=== PATIENT | female | born 1960 | race Caucasian/White ===

== ENCOUNTER 2020-03-22 12:40 | Outpatient (REF) | payer MEDICARE, MEDICAID, SELFPAY ==
[2020-03-27 00:37] LABS: Levetiracetam Keppra 27.8 mcg/mL (12.0-46.0)
== END 2020-03-22 12:41 | disposition home or self-care (01) ==
LOC: HO.LNPL 12:40
PROVIDERS: PCP Psychiatry & Neurology Neurology; Visit Provider Psychiatry & Neurology Neurology
DX: G40.909 Epilepsy, unspecified, not intractable, without status epilepticus (principal)
CPT/HCPCS: 80177

== ENCOUNTER → 2020-06-29 15:15 | Outpatient (BNVA) | payer MEDICARE, MEDICAID, SELFPAY | PROVIDERS: PCP Internal Medicine; Visit Provider Internal Medicine | DX: Q90.9 Down syndrome, unspecified (principal); G47.33 Obstructive sleep apnea (adult) (pediatric); R13.19 Other dysphagia; Z99.89 Dependence on other enabling machines and devices | CPT/HCPCS: 99212 ==

== ENCOUNTER → 2020-10-21 14:27 | Outpatient (BNVA) | payer MEDICARE, MEDICAID, SELFPAY | PROVIDERS: PCP Internal Medicine; Visit Provider Internal Medicine | DX: O90.9 Complication of the puerperium, unspecified (principal); G47.33 Obstructive sleep apnea (adult) (pediatric); R13.19 Other dysphagia; Z99.89 Dependence on other enabling machines and devices | CPT/HCPCS: 99212 ==

== ENCOUNTER 2020-11-17 15:05 | Outpatient (REF) | payer MEDICARE, MEDICAID, SELFPAY ==
[2020-11-17 16:42] LABS: MANUAL DIFF FLAG NO
[2020-11-17 16:50] LABS: Basophils Absolute Auto 0.1 X10*3/uL (0.0-0.2); Basophils Percent Auto 0.4 % (0-2); Eosinophils Percent Auto 0.3 % (0-4); Hemoglobin 13.8 g/dl (12.0-16.0); Imm Gran Abs Auto 0.07 X10*3/uL (0.00-0.03); Imm Gran Pct Auto 0.5 % (0.0-0.4); Lymphocytes Absolute Auto 1.4 X10*3/uL (1.2-4.9); Lymphocytes Percent Auto 10.3 % (20-40); Mean Corpuscular HGB Conc 32.1 g/dl (31.0-35.0); Mean Corpuscular Hemoglobin 33.5 pg (27.0-33.0); Mean Corpuscular Volume 104.4 fL (80-98); Mean Platelet Volume 10.5 fL (9.4-12.3); Monocytes Absolute Auto 0.9 X10*3/uL (0.1-1.2); Monocytes Percent Auto 6.5 % (2-11); Neutrophils Absolute Auto 11.2 X10*3/uL (2.0-8.3); Platelet Count 234 X10*3/uL (160-400); Red Blood Count 4.12 X10*6/uL (4.20-5.50); Red Cell Distribution Width 13.7 % (11.0-16.0); White Blood Count 13.7 X10*3/uL (4.8-10.8)
[2020-11-17 17:08] LABS: Alanine Aminotransferase 14 U/L (0-31); Alkaline Phosphatase 124 U/L (39-117); Anion Gap 13 (12-20); Aspartate Amino Transferase 18 U/L (5-31); Bilirubin Total 0.7 mg/dL (0.0-1.0); Blood Urea Nitrogen 14 mg/dL (9-16); Calcium 9.2 mg/dL (8.4-10.2); Carbon Dioxide 29 mmol/L (22-29); Chloride 108 mmol/L (96-108); Estimated Glomerular Filt Rate > 60; Glucose Random 79 mg/dL (60-115); Sodium 146 mmol/L (135-145); Total Protein 7.3 g/dL (6.5-8.0)
[2020-11-17 17:31] LABS: Free T4 (Free Thyroxine) 1.32 ng/dL (0.71-1.85); Thyroid Stimulating Hormone 2.42 uIU/mL (0.32-4.0); Vitamin D 25-OH Total 27.9 ng/mL (>30)
== END 2020-11-17 15:06 | disposition home or self-care (01) ==
LOC: HO.HMGCLDS 15:05
PROVIDERS: PCP Internal Medicine; Visit Provider Internal Medicine
DX: E03.9 Hypothyroidism, unspecified (principal); Q90.9 Down syndrome, unspecified; G40.909 Epilepsy, unspecified, not intractable, without status epilepticus
CPT/HCPCS: 36415; 80053; 82306; 84439; 84443; 85025

== ENCOUNTER → 2021-04-22 13:56 | Outpatient (BNVA) | payer MEDICARE, MEDICAID, SELFPAY | PROVIDERS: PCP Internal Medicine; Visit Provider Internal Medicine | DX: G47.33 Obstructive sleep apnea (adult) (pediatric) (principal); Q90.9 Down syndrome, unspecified; R13.19 Other dysphagia; Z99.89 Dependence on other enabling machines and devices | CPT/HCPCS: 99212 ==

== ENCOUNTER 2021-10-09 09:55 | Inpatient (IN) | payer MEDICARE, MEDICAID, SELFPAY ==
[2021-10-09] VITALS (11 sets, daily range): BP systolic 98–167; BP diastolic 44–82; PULSE 90–105; RESP 16–25; TEMP 37.1–38.1; O2SAT 88–98; BMI 30.7
--- NOTE | ~2021-10-09 | CT_ITS ---
EXAMINATION: CT HEAD WITHOUT CONTRAST CLINICAL INFORMATION: Altered mental status COMPARISON: 02/28/2019 TECHNIQUE: Contiguous axial imaging was performed from the skull base to vertex without intravenous administration of contrast. This CT examination was performed using dose optimization techniques as appropriate, variously including the following: *Automated exposure control *Adjustment of mA and/or kV according to patient size (this includes techniques or standardized protocols for targeted exams where dose is matched to indication/reason for exam; i.e. extremities or head) *Use of iterative reconstruction technique DLP: 866 mGy-cm FINDINGS: There is no evidence of acute intracranial hemorrhage or territorial infarction. No abnormal mass effect or midline shift is seen. [place] to white matter differentiation is well preserved. No extra-axial fluid collections are identified. Redemonstrated volume loss with associated ventricular dilation, which appears overall mildly increased since 02/28/2019.. There is mild periventricular white matter hypoattenuation consistent with chronic small vessel ischemic disease. The osseous structures and soft tissues are normal. Near-complete opacification of the left maxillary sinus. The mastoid air cells are well-aerated. CT/CT head/brain wo con IMPRESSION: No acute intracranial pathology. Volume loss and ventricular dilation, increased since 02/28/2019.
--- NOTE | ~2021-10-09 | XR_ITS ---
EXAMINATION: XR CHEST CLINICAL INFORMATION: Chest pain. COMPARISON: 08/14/2019 chest radiographs. TECHNIQUE: Frontal view of the chest was obtained. FINDINGS: Increased pulmonary vascular markings are seen. The heart and mediastinal structures are unremarkable. XR/XR chest 1V IMPRESSION: Interval increase in pulmonary vascular markings suggesting increased congestion.
--- NOTE | ~2021-10-09 | XR_ITS ---
EXAMINATION: XR CHEST CLINICAL INFORMATION: Shortness of breath COMPARISON: 10/09/2021 TECHNIQUE: Frontal view of the chest was obtained. FINDINGS: Lung volumes are symmetric. Redemonstrated prominence of the central vasculature and surrounding heterogeneous haziness extending to the lung bases, suggesting edema. No appreciable pneumothorax or significant pleural effusion. The cardiomediastinal silhouette is stable. No acute osseous findings are seen. XR/XR chest 1V IMPRESSION: Redemonstrated findings suggesting vascular congestion and mild edema, similar to 10/09/2021.
--- NOTE | 2021-10-09 11:34 | ED_ITS ---
HPI - URI/Sore Throat General Chief Complaint: Upper Respiratory Symptoms Stated Complaint: COUGH,FEVER Time Seen by Provider: 10/09/21 10:47 History of Present Illness HPI Narrative: Patient is a 61-year-old female with a history of Down syndromes history of seizures in the past history of aspiration in the past presents today with having an episode of coughing last night. Family noted patient to be slightly more lethargic than usual. Center in for further evaluation. Baseline patient is awake alert oriented times 0. Sister take care of her. Related Data Home Medications Medication Instructions Recorded Confirmed donepezil 5 mg disintegrating mg PO 10/21/20 tablet ipratropium bromide 21 mcg (0.03 INTRANASAL 10/21/20 %) nasal spray lamotrigine 25 mg chewable mg PO 10/21/20 dispersible tablet levothyroxine 88 mcg tablet mcg PO 10/21/20 Previous Rx's Medication Instructions Recorded levalbuterol HCl 1.25 mg/3 mL 1.25 mg (3 mL) INHALATION Q8H #270 09/27/21 solution for nebulization ml Allergies Allergy/AdvReac Type Severity Reaction Status Date / Time fentanyl [FENTANYL] Allergy Intermediate UNKNOWN Verified 04/22/21 14:08 codeine [CODEINE] Allergy Unknown UNKNOWN Verified 04/22/21 14:08 lorazepam [From ATIVAN] Allergy Unknown UNKNOWN Verified 04/22/21 14:08 oxcarbazepine [OXCARBAZEPINE] Allergy Unknown UNKNOWN Verified 04/22/21 14:08 penicillin V Allergy Unknown Unknown Verified 04/22/21 14:08 Penicillins [PENICILLINS] Allergy Unknown DIFFICULTY Verified 04/22/21 14:08 BREATHING Sulfa (Sulfonamide Allergy Unknown DIFFICULTY Verified 04/22/21 14:08 Antibiotics) BREATHING [SULFA (SULFONAMIDE ANTIBIOTICS)] levofloxacin [From LEVAQUIN] AdvReac Intermediate hallucinati Verified 04/22/21 14:08 ons phenodol Allergy Unknown Unknown Uncoded 10/21/20 14:48 Review of Systems Review of Systems: Positive coughing upper respiratory symptoms No vomiting The question low-grade fever noted last night by sister approximately 99.7 Yes all other systems are reviewed and are negative PMFSH Past Medical History Attestation statement: The following information was validated with the patient. Medical History Down syndrome Dysphagia causing pulmonary aspiration with swallowing LEONIE on CPAP Social History Social History Advance Directives: No Physical Exam Vital Signs: Vital Signs: Last Vital Signs Temp 100.5 F H 10/09/21 13:30 Pulse 92 10/09/21 13:14 Resp 24 H 10/09/21 13:54 BP 121/59 L 10/09/21 13:14 Pulse Ox 88 L 10/09/21 13:54 BMI result Body Mass Index 30.7 Appearance: Lethargic slumped over. Eyes: Pupils equal, round and reactive to light. ENT: Pharynx normal. Neck: Normal inspection. Neck supple. No lymph nodes noted. No crepitus CVS: Normal heart rate and rhythm. Pulses normal. Normal S1 and S2 Respiratory: No respiratory distress. Breath sounds normal. No Wheezing. No rales Abdomen: Soft and nontender. No rigidity. No distention. good BS x4 Skin: Skin warm and dry. Normal skin color. Normal skin turgor. Extremities: No lower extremity edema. Neurovascular intact to all extremities. No Lacerations. No Rash Neuro difficult to arouse No motor deficit. No sensory deficit. Moving all extermities. MDM - URI/Sore Throat MDM Narrative Medical decision making narrative: Patient is 61 years old history of Down syndrome. Positive coughing upper respiratory symptoms generalized malaise low-grade fever with a temperature 100 degrees 0.7. Patient's lactate is 1.2. White count is 17. History more co nsistent with having pneumonia. Antibiotics given. Patient is hypoxic will admit for further evaluation. Currently in guarded condition. Differential Diagnosis Differential diagnosis: Likely upper respiratory infection Medical Records Attestation: I reviewed the patient's medical records. Lab Data Attestation: I reviewed the patient's lab results. Result diagrams: 10/09/21 11:53 10/09/21 11:53 Labs: Lab Results 10/09/21 10/09/21 10/09/21 Range/Units 11:53 11:53 11:53 WBC 17.4 H (4.8-10.8) X10*3/uL RBC 4.13 L (4.20-5.50) X10*6/uL Hgb 13.7 (12.0-16.0) g/dl Hct 42.0 (37.0-47.0) % MCV 101.7 H (80.0-98.0) fL MCH 33.2 H (27.0-33.0) pg MCHC 32.6 (31.0-35.0) g/dl RDW 13.7 (11.0-16.0) % Plt Count 202 (160-400) X10*3/uL MPV 10.0 (9.4-12.3) fL Immature Gran % (Auto) 1.0 H (0.0-0.4) % Neut % (Auto) 88.0 H (45-73) % Lymph % (Auto) 5.2 L (20-40) % [place] % (Auto) 5.1 (2-11) % Eos % (Auto) 0.3 (0-4) % Baso % (Auto) 0.4 (0-2) % Lymph # (Auto) 0.9 L (1.2-4.9) X10*3/uL [place] # (Auto) 0.9 (0.1-1.2) X10*3/uL Eos # (Auto) 0.1 (0.0-0.4) X10*3/uL Baso # (Auto) 0.1 (0.0-0.2) X10*3/uL Abs Immat Gran (auto) 0.17 H (0.00-0.03) X10*3/uL Absolute Neuts (auto) 15.4 H (2.0-8.3) x10*3/uL Absolute Nucleated RBC 0.000 (0.0-0.012) X10*3/uL Nucleated RBC % (auto) 0.0 (0.0-0.2) /100WBC Sodium (135-145) mmol/L Potassium (3.3-5.1) mmol/L Chloride (96-108) mmol/L Carbon Dioxide (22-29) mmol/L Anion Gap (12-20) BUN (9-16) mg/dL Creatinine (0.5-1.4) mg/dL Estim Creat Clear Calc Estimated GFR Random Glucose (60-115) mg/dL Lactic Acid 1.2 (0.5-2.0) mmol/L Calcium (8.4-10.2) mg/dL Urine Color Urine Appearance Urine pH (5.0-8.0) Ur Specific [place] (1.005-1.025) Urine Protein (NEG-TRACE) MG/DL Urine Glucose (UA) (NEG) MG/DL Urine Ketones (NEG) MG/DL Urine Blood (NEG) Urine Nitrite (NEG) Ur Leukocyte Esterase (NEG) Influenza Type A (PCR) NEGATIVE (Negative) Influenza Type B (PCR) NEGATIVE (Negative) RSV RNA Qual (PCR) NEGATIVE (Negative) SARS-CoV-2 RNA (RT-PCR) NEGATIVE (Negative) 10/09/21 10/09/21 Range/Units 11:53 13:47 WBC (4.8-10.8) X10*3/uL RBC (4.20-5.50) X10*6/uL Hgb (12.0-16.0) g/dl Hct (37.0-47.0) % MCV (80.0-98.0) fL MCH (27.0-33.0) pg MCHC (31.0-35.0) g/dl RDW (11.0-16.0) % Plt Count (160-400) X10*3/uL MPV (9.4-12.3) fL Immature Gran % (Auto) (0.0-0.4) % Neut % (Auto) (45-73) % Lymph % (Auto) (20-40) % [place] % (Auto) (2-11) % Eos % (Auto) (0-4) % Baso % (Auto) (0-2) % Lymph # (Auto) (1.2-4.9) X10*3/uL [place] # (Auto) (0.1-1.2) X10*3/uL Eos # (Auto) (0.0-0.4) X10*3/uL Baso # (Auto) (0.0-0.2) X10*3/uL Abs Immat Gran (auto) (0.00-0.03) X10*3/uL Absolute Neuts (auto) (2.0-8.3) x10*3/uL Absolute Nucleated RBC (0.0-0.012) X10*3/uL Nucleated RBC % (auto) (0.0-0.2) /100WBC Sodium 141 (135-145) mmol/L Potassium 3.9 (3.3-5.1) mmol/L Chloride 107 (96-108) mmol/L Carbon Dioxide 24 (22-29) mmol/L Anion Gap 14 (12-20) BUN 10 (9-16) mg/dL Creatinine 0.73 (0.5-1.4) mg/dL Estim Creat Clear Calc 65.4 Estimated GFR > 60 Random Glucose 110 (60-115) mg/dL Lactic Acid (0.5-2.0) mmol/L Calcium 9.3 (8.4-10.2) mg/dL Urine Color YELLOW Urine Appearance HAZY Urine pH 6.5 (5.0-8.0) Ur Specific [place] 1.015 (1.005-1.025) Urine Protein TRACE (NEG-TRACE) MG/DL Urine Glucose (UA) NEG (NEG) MG/DL Urine Ketones NEG (NEG) MG/DL Urine Blood NEG (NEG) Urine Nitrite POS H (NEG) Ur Leukocyte Esterase NEG (NEG) Influenza Type A (PCR) (Negative) Influenza Type B (PCR) (Negative) RSV RNA Qual (PCR) (Negative) SARS-CoV-2 RNA (RT-PCR) (Negative) Discharge Plan Discharge Clinical Impression: Down syndrome, Pneumonia Patient Disposition: Admitted As Inpatient Prescriptions: No Action levalbuterol HCl 1.25 mg/3 mL solution for nebulization 1.25 mg inhalation Q8H Qty: 270 3RF levothyroxine 88 mcg tablet PO 0RF donepezil 5 mg tablet,disintegrating PO 0RF lamotrigine 25 mg tablet, chewable dispersible PO 0RF ipratropium bromide 21 mcg (0.03 %) spray,non-aerosol intranasal 0RF
[2021-10-09 11:59] LABS: MANUAL DIFF FLAG NO
[2021-10-09 12:03] LABS: Basophils Absolute Auto 0.1 X10*3/uL (0.0-0.2); Basophils Percent Auto 0.4 % (0-2); Eosinophils Absolute Auto 0.1 X10*3/uL (0.0-0.4); Eosinophils Percent Auto 0.3 % (0-4); Hemoglobin 13.7 g/dl (12.0-16.0); Imm Gran Abs Auto 0.17 X10*3/uL (0.00-0.03); Lymphocytes Absolute Auto 0.9 X10*3/uL (1.2-4.9); Lymphocytes Percent Auto 5.2 % (20-40); Mean Corpuscular HGB Conc 32.6 g/dl (31.0-35.0); Mean Corpuscular Hemoglobin 33.2 pg (27.0-33.0); Mean Corpuscular Volume 101.7 fL (80.0-98.0); Monocytes Absolute Auto 0.9 X10*3/uL (0.1-1.2); Monocytes Percent Auto 5.1 % (2-11); Neutrophils Absolute Auto 15.4 x10*3/uL (2.0-8.3); Platelet Count 202 X10*3/uL (160-400); Red Blood Count 4.13 X10*6/uL (4.20-5.50); Red Cell Distribution Width 13.7 % (11.0-16.0); White Blood Count 17.4 X10*3/uL (4.8-10.8)
[2021-10-09 12:13] LABS: Lactic Acid 1.2 mmol/L (0.5-2.0)
[2021-10-09 12:16] LABS: Anion Gap 14 (12-20); Blood Urea Nitrogen 10 mg/dL (9-16); Calcium 9.3 mg/dL (8.4-10.2); Carbon Dioxide 24 mmol/L (22-29); Chloride 107 mmol/L (96-108); Creatinine Clr Calc Pharmacy 65.4; Estimated Glomerular Filt Rate > 60; Glucose Random 110 mg/dL (60-115); Potassium 3.9 mmol/L (3.3-5.1); Sodium 141 mmol/L (135-145)
[2021-10-09 13:09] LABS: Influenza A PCR NEGATIVE (Negative); Influenza B PCR NEGATIVE (Negative); Resp Syncy Virus RNA Qual PCR NEGATIVE (Negative); SARS COV2 PCR INHOUSE NEGATIVE (Negative)
[2021-10-09 13:54] LABS: Appearance Urine HAZY; Color Urine YELLOW; Glucose Urine UA NEG (NEG); Leukocyte Esterase Urine NEG (NEG); Nitrite Urine POS (NEG); PH 6.5 (5.0-8.0); Specific Gravity - Urine 1.015 (1.005-1.025); UACC Culture Trigger YES; Urine Blood NEG (NEG); Urine Ketones NEG (NEG); Urine Protein TRACE MG/DL (NEG-TRACE)
[2021-10-09 14:03] LABS: Bacteria Urine 4+ /LPF; RBC Urine 0 /HPF (0); Squamous Epithelial Cell Urine TRACE /LPF; UACC CULT YES
[2021-10-09] MEDS: levoFLOXacin/D5W 500 MG/100 ML PIGGYBACK 100 MG IV (14:21)
[2021-10-09 14:28] LABS: B Type Natriuretic Peptide 69 pg/mL (<100)
--- NOTE | 2021-10-09 15:22 | PHA.MEDREC ---
Pharmacy Consult ? Medication Reconciliation Pharmacy has completed the medication reconciliation. Put in the meds per family request at exact times. Volume of keppra and vimpat are divided into three syringes due to volume. Per family, if the patient is sleeping, do not give 4 am keppra dose. Do not give lorazepam. Try and give meds with thick it.
[2021-10-09] MEDS: metroNIDAZOLE/NS 500 MG/100 ML PIGGYBACK 100 MG IV ×2 (15:59→21:24)
[2021-10-09] MEDS: 0.9 % Sodium Chloride Flush 3 ML SYRINGE IVFLUSH ×2 (16:00→21:21)
--- NOTE | 2021-10-09 16:38 | P.HPHOSP_ITS ---
History of Present Illness Date of Service: 10/09/21 Chief Complaint: Aspiration Pneumonia 61-year-old female with known history of Down's syndrome and chronic aspiration presents today to the emergency room after an episode of coughing which she likely aspirated. Family noticed a fever to 101 at home along with a very congested cough. In the emergency room, chest x-ray consistent with aspiration pneumonia. Review of Systems Review of Systems: Unable to obtain [facility] Medical History Down syndrome Dysphagia causing pulmonary aspiration with swallowing LEONIE on CPAP Social History Advance Directives: No Meds Allergies Allergy/AdvReac Type Severity Reaction Status Date / Time fentanyl [FENTANYL] Allergy Intermediate UNKNOWN Verified 04/22/21 14:08 codeine [CODEINE] Allergy Unknown UNKNOWN Verified 04/22/21 14:08 lorazepam [From ATIVAN] Allergy Unknown UNKNOWN Verified 04/22/21 14:08 oxcarbazepine [OXCARBAZEPINE] Allergy Unknown UNKNOWN Verified 04/22/21 14:08 penicillin V Allergy Unknown Unknown Verified 04/22/21 14:08 Penicillins [PENICILLINS] Allergy Unknown DIFFICULTY Verified 04/22/21 14:08 BREATHING Sulfa (Sulfonamide Allergy Unknown DIFFICULTY Verified 04/22/21 14:08 Antibiotics) BREATHING [SULFA (SULFONAMIDE ANTIBIOTICS)] levofloxacin [From LEVAQUIN] AdvReac Intermediate hallucinati Verified 04/22/21 14:08 ons phenodol Allergy Unknown Unknown Uncoded 10/21/20 14:48 Active Medications: Current Medications Acetaminophen (Acetaminophen 325 Mg Tablet) 650 mg PO BEDTIME [facility]ON Clonazepam (Clonazepam 0.5 Mg Tablet) 0.25 mg PO DAILY PRN PRN Reason: Seizures Enoxaparin Sodium (Enoxaparin Sodium 40 Mg/0.4 Ml Syringe) 40 mg SUBCUT Q24H [facility]LON Levofloxacin (Levaquin) 500 mg in 100 mls @ 100 mls/hr IV Q24H [facility] Metronidazole (Flagyl) 500 mg in 100 mls @ 100 mls/hr IV Q8H [facility]ON Last Admin: 10/09/21 15:59 Dose: 100 mls/hr Documented by: Ipratropium [place] (Ipratropium [place] 0.03 % 30 Ml [place]) 2 spray NOSTRIL-B TID PRN PRN Reason: Allergy Symptoms Lamotrigine (Lamotrigine 25 Mg Tablet) 25 mg PO BID@1100,2200 [facility] Levothyroxine Sodium (Levothyroxine Sodium 88 Mcg Tablet) 88 mcg PO DAILY@1030 [facility] Non-Formulary Medication (Donepezil) 5 mg PO DAILY@2200 [facility] Non-Formulary Medication (Lacosamide [Vimpat]) 95 mg PO BEDTIME [facility] Non-Formulary Medication (Levalbuterol Hcl) 1.25 mg INHALE Q8H PRN PRN Reason: Wheezing Non-Formulary Medication (Levetiracetam [Keppra]) 200 mg PO DAILY [facility] Non-Formulary Medication (Levetiracetam [Keppra]) 1,350 mg PO BEDTIME [facility] Non-Formulary Medication (Levetiracetam) 50 mg PO DAILY@0400 [facility] Omeprazole (Omeprazole 20 Mg/10 Ml Susp.Recon) 2.5 mg PO DAILY [facility] Pharmacy Consult (Consult Rx Perform Med Rec) 1 each MISCELLANE ONCE PRN PRN Reason: Consult order Sodium Chloride (0.9 % Sodium Chloride Flush 3 Ml Syringe) 3 ml IVFLUSH QSHIFT [facility] Last Admin: 10/09/21 16:00 Dose: 3 ml Documented by: Home Medications Medication Instructions Recorded Confirmed Last Taken Type donepezil 5 mg disintegrating 5 mg PO DAILY@2200 10/21/20 10/09/21 10/08/21 21:00 History tablet ipratropium bromide 21 mcg (0.03 2 spray INTRANASAL TID PRN 10/21/20 10/09/21 10/08/21 21:00 History %) nasal spray lamotrigine 25 mg chewable 25 mg PO BID@1100,2200 10/21/20 10/09/21 10/08/21 21:00 History dispersible tablet levothyroxine 88 mcg tablet 88 mcg PO DAILY@1030 10/21/20 10/09/21 10/08/21 12:00 History acetaminophen 325 mg tablet 650 mg PO BEDTIME 10/09/21 10/09/21 10/08/21 History clonazepam 0.25 mg disintegrating 0.25 mg PO DAILY PRN 10/09/21 10/09/21 Unknown History tablet lacosamide 10 mg/mL oral solution 95 mg PO BEDTIME 10/09/21 10/09/21 10/08/21 History (Vimpat) levalbuterol HCl 1.25 mg/3 mL 1.25 mg INHALATION Q8H PRN 10/09/21 10/09/21 10/08/21 21:00 History solution for nebulization levetiracetam 100 mg/mL oral 50 mg PO DAILY@0400 10/09/21 10/09/21 10/08/21 History solution levetiracetam 100 mg/mL oral 1,350 mg PO BEDTIME 10/09/21 10/09/21 10/08/21 21:00 History solution (Keppra) levetiracetam 100 mg/mL oral 200 mg DAILY 10/09/21 10/09/21 10/09/21 09:00 History solution (Keppra) nystatin 100,000 unit/gram topical 1 appl TOPICAL TID PRN 10/09/21 10/09/21 Unknown History cream omeprazole magnesium 2.5 mg oral 2.5 mg PO DAILY 10/09/21 10/09/21 10/08/21 History suspension,delayed release Physical Exam Vital Signs and Narrative: Vital Signs: Last Vital Signs Temp 100.5 F H 10/09/21 13:30 Pulse 97 10/09/21 14:29 Resp 25 H 10/09/21 14:29 BP 125/59 L 10/09/21 14:31 Pulse Ox 97 10/09/21 14:44 Oxygen Flow Rate 2 10/09/21 14:44 BMI result Body Mass Index 30.7 Const: Other: Nonverbal Resp: Other: Diminished breath sounds throughout with coarse rhonchi Cardio: Other: No S4; positive S1-S2; no S3 murmurs rubs or gallops GI: Other: Soft nontender nondistended with normoactive bowel sounds Extrem: Other: No edema bilaterally Results Labs CBC and Chem 7: 10/09/21 11:53 10/09/21 11:53 Labs: Laboratory Results - last 24 hr 10/09/21 10/09/21 10/09/21 11:53 11:53 11:53 MCV 101.7 H MCH 33.2 H MCHC 32.6 RDW 13.7 Plt Count 202 MPV 10.0 Immature Gran % (Auto) 1.0 H Neut % (Auto) 88.0 H Lymph % (Auto) 5.2 L [place] % (Auto) 5.1 Eos % (Auto) 0.3 Baso % (Auto) 0.4 Lymph # (Auto) 0.9 L [place] # (Auto) 0.9 Eos # (Auto) 0.1 Baso # (Auto) 0.1 Abs Immat Gran (auto) 0.17 H Absolute Neuts (auto) 15.4 H Absolute Nucleated RBC 0.000 Nucleated RBC % (auto) 0.0 Anion Gap Estim Creat Clear Calc Estimated GFR Random Glucose Lactic Acid 1.2 Calcium B-Natriuretic Peptide Urine Color Urine Appearance Urine pH Ur Specific [place] Urine Protein Urine Glucose (UA) Urine Ketones Urine Blood Urine Nitrite Ur Leukocyte Esterase Urine RBC Urine WBC Ur Squamous Epith Cells Urine Bacteria Influenza Type A (PCR) NEGATIVE Influenza Type B (PCR) NEGATIVE RSV RNA Qual (PCR) NEGATIVE SARS-CoV-2 RNA (RT-PCR) NEGATIVE 10/09/21 10/09/21 10/09/21 11:53 11:53 13:47 MCV MCH MCHC RDW Plt Count MPV Immature Gran % (Auto) Neut % (Auto) Lymph % (Auto) [place] % (Auto) Eos % (Auto) Baso % (Auto) Lymph # (Auto) [place] # (Auto) Eos # (Auto) Baso # (Auto) Abs Immat Gran (auto) Absolute Neuts (auto) Absolute Nucleated RBC Nucleated RBC % (auto) Anion Gap 14 Estim Creat Clear Calc 65.4 Estimated GFR > 60 Random Glucose 110 Lactic Acid Calcium 9.3 B-Natriuretic Peptide 69 Urine Color YELLOW Urine Appearance HAZY Urine pH 6.5 Ur Specific [place] 1.015 Urine Protein TRACE Urine Glucose (UA) NEG Urine Ketones NEG Urine Blood NEG Urine Nitrite POS H Ur Leukocyte Esterase NEG Urine RBC 0 Urine WBC 15-29 H Ur Squamous Epith Cells TRACE Urine Bacteria 4+ Influenza Type A (PCR) Influenza Type B (PCR) RSV RNA Qual (PCR) SARS-CoV-2 RNA (RT-PCR) Imaging Radiologist's Impressions: Impressions Chest X-Ray 10/09/21 12:34 IMPRESSION: Interval increase in pulmonary vascular markings suggesting increased congestion. Assessment and Plan (1) Aspiration pneumonia: Status: Acute (2) Down syndrome: Status: Acute (3) LEONIE on CPAP: Status: Acute Plan 61-year-old female presents with aspiration pneumonia in the backdrop of chronic aspiration in the setting of Down syndrome. Fevers to 101 at home; in the ER given Levaquin and Flagyl and nebs. 1.Aspiration pneumonia -Levaquin/Flagyl -DuoNebs q.4 hours while awake. . . Aggressive suctioning as tolerated -titrate O2 to maintain sats greater than equal to 92% 2. Seizure disorder -continue outpatient therapies. . . Patient to sister to bring in meds that are non formulary 3.Downs syndrome -continue clonazepam and Aricept -add benzos if clinically indicated 4. Hypothyroidism -continue outpatient supplements 5. GERD -omeprazole suspension Full code Lovenox Will require 1-2 midnights going forward for treatment of aspiration pneumonia with IV antibiotics and supplemental O2. This cannot be achieved at a lesser acute setting Quality Stroke Does the patient have a stroke diagnosis?: No VTE Prior VTE?: No VTE Risk Level:: Medical - moderate - high VTE Device Contraindication: Treatment Not Indicated VTE Drug Contraindication: N/A - Med Ordered
[2021-10-09] MEDS: Enoxaparin Sodium 40 MG/0.4 ML SYRINGE SUBCUT (18:31)
[2021-10-09] MEDS: Acetaminophen 325 MG TABLET 650 MG PO (21:24)
[2021-10-09] MEDS: Donepezil HCl 5 MG TABLET PO (21:37)
[2021-10-09] MEDS: levETIRAcetam Oral Soln 500 MG/5 ML 1350 MG PO (21:38)
[2021-10-09] MEDS: lamoTRIgine 25 MG TABLET PO (21:43)
[2021-10-10] VITALS (8 sets, daily range): BP systolic 94–137; BP diastolic 49–74; PULSE 61–84; RESP 16–20; TEMP 36.2–38.2; O2SAT 92–100
--- NOTE | 2021-10-10 03:50 | PC.NURSE ---
Patient with decreased blood pressure and minmally responsive. contacted MD and music supervisor, customer service leader at bedside.
[2021-10-10] MEDS: SODIUM CHLORIDE 2001 ML IV (04:41)
[2021-10-10 04:55] LABS: MANUAL DIFF FLAG NO
[2021-10-10 04:56] LABS: Basophils Absolute Auto 0.1 X10*3/uL (0.0-0.2); Basophils Percent Auto 0.3 % (0-2); Eosinophils Absolute Auto 0.1 X10*3/uL (0.0-0.4); Eosinophils Percent Auto 0.5 % (0-4); Hematocrit 36.5 % (37.0-47.0); Imm Gran Abs Auto 0.15 X10*3/uL (0.00-0.03); Lymphocytes Absolute Auto 1.4 X10*3/uL (1.2-4.9); Lymphocytes Percent Auto 8.6 % (20-40); Mean Corpuscular HGB Conc 32.9 g/dl (31.0-35.0); Mean Corpuscular Hemoglobin 33.2 pg (27.0-33.0); Mean Corpuscular Volume 101.1 fL (80.0-98.0); Mean Platelet Volume 9.9 fL (9.4-12.3); Monocytes Absolute Auto 0.9 X10*3/uL (0.1-1.2); Monocytes Percent Auto 5.6 % (2-11); Neutrophils Absolute Auto 13.3 x10*3/uL (2.0-8.3); Platelet Count 180 X10*3/uL (160-400); Red Blood Count 3.61 X10*6/uL (4.20-5.50); Red Cell Distribution Width 13.5 % (11.0-16.0); White Blood Count 15.8 X10*3/uL (4.8-10.8)
[2021-10-10 04:57] LABS: VBG Base Excess 1.2 mmol/L; VBG HCO3 24 mmol/L (22-26); VBG pCO2 35 mmHg; VBG pH 7.44 (7.32-7.43); VBG pO2 60 mmHg
[2021-10-10 04:57] LABS: Venous Blood Gas Refer to POC result
--- NOTE | 2021-10-10 05:02 | PC.RT ---
Oral suctioned moderate thick secretions, att ABG-flashed but stopped? clot. Pt not waking up but would after 30 mins
[2021-10-10 05:09] LABS: Lactic Acid 0.8 mmol/L (0.5-2.0)
[2021-10-10 05:15] LABS: Alanine Aminotransferase 13 U/L (0-31); Albumin Level 3.3 g/dL (3.5-5.0); Alkaline Phosphatase 121 U/L (39-117); Anion Gap 14 (12-20); Aspartate Amino Transferase 15 U/L (5-31); Bilirubin Total 0.8 mg/dL (0.0-1.0); Blood Urea Nitrogen 11 mg/dL (9-16); Calcium 8.8 mg/dL (8.4-10.2); Carbon Dioxide 21 mmol/L (22-29); Chloride 107 mmol/L (96-108); Creatinine Clr Calc Pharmacy 56.9; Estimated Glomerular Filt Rate > 60; Glucose Fasting 107 mg/dL (60-99); Potassium 3.6 mmol/L (3.3-5.1); Sodium 138 mmol/L (135-145); Total Protein 6.3 g/dL (6.5-8.0)
[2021-10-10] MEDS: Acetaminophen Supp 650 MG SUPP.RECT PR (06:01)
[2021-10-10] MEDS: metroNIDAZOLE/NS 500 MG/100 ML PIGGYBACK 100 MG IV ×3 (07:32→22:04)
[2021-10-10] MEDS: levETIRAcetam Oral Soln 500 MG/5 ML 200 MG PO (09:52)
[2021-10-10] MEDS: lamoTRIgine 25 MG TABLET PO ×2 (10:01→21:53)
--- NOTE | 2021-10-10 13:16 | MHC.CM.PN ---
IMM 10/10/21 REVIEWED AT BEDSIDE W/PT'S SISTER D/T DEMENTIA/DOWN SYNDROME, PT'S SISTER TOSHIA ANSWERED ALL QUESTIONS PT WAS SOUNDLY SLEEPING, PT LIVES W/SISTER AND SISTER , PT IS MAINLY IN W/C AND SISTER USES A CLARY ATTACHED TO [place] TO TRANSFER PT SHE AND HER ARE NOT STRONG ENOUGH, TOSHIA REPORTS PT HAS GRAB BARS IN BR, MULT WALKERS, W/C, W/C RAMP, CEILING AND STAND ALONE CLARY LIFTS, A LIFT THAT STANDS PT, ETC. TOSHIA IS PAID 40HRS [facility] TO CARE FOR PT AND IS REQUESTING EXTRA HELP BUT IS AWARE THAT WOULD COME OUT OF POCKET, TOSHIA IS REQUESTING [facility] AND REPORTS SHE HAS HAD [facility] IN THE PAST AND REFERRAL TO BE PLACED. PCP: OG MESA HCP: TOSHIA ECHAVARRIA [phone], COPY PROVIDED BY FAMILY, UPLOADED TO [employer] AND PLACED IN CHART. D/C PLAN: HOME W/24 HR CARE AND NEW [facility], PT WILL NEED BLS TRANSPORT.
--- NOTE | 2021-10-10 13:21 | P.PNIM_ITS ---
Subjective Subjective Date of Service: 10/10/21 Review of Systems Unable to obtain Physical Exam Vital Signs: Vital Signs: Last Vital Signs Temp 97.8 F 10/10/21 10:38 Pulse 69 10/10/21 10:38 Resp 20 10/10/21 10:38 BP 103/49 L 10/10/21 10:38 Pulse Ox 98 10/10/21 10:38 Oxygen Flow Rate 2 10/09/21 14:44 BMI result Body Mass Index 30.7 Const: Other: Nonverbal Resp: Other: Diminished breath sounds throughout with coarse rhonchi Cardio: Other: No S4; positive S1-S2; no S3 murmurs rubs or gallops GI: Other: Soft nontender nondistended with normoactive bowel sounds Extrem: Other: No edema bilaterally Objective Data Active Medications Acetaminophen (Acetaminophen 325 Mg Tablet) 650 mg PO BEDTIME [facility] Last Admin: 10/09/21 21:24 Dose: 650 mg Documented by: OBI Acetaminophen (Acetaminophen Supp 650 Mg Supp.Rect) 650 mg [place] Q6H PRN PRN Reason: Pain, Mild (Pain Scale 1-3) Last Admin: 10/10/21 06:01 Dose: 650 mg Documented by: PATEL Clonazepam (Clonazepam 0.5 Mg Tablet) 0.25 mg PO DAILY PRN PRN Reason: Seizures Donepezil HCl (Donepezil Hcl 5 Mg Tablet) 5 mg PO DAILY@2200 [facility] Last Admin: 10/09/21 21:37 Dose: 5 mg Documented by: OBI Enoxaparin Sodium (Enoxaparin Sodium 40 Mg/0.4 Ml Syringe) 40 mg SUBCUT Q24H [facility] Last Admin: 10/09/21 18:31 Dose: 40 mg Documented by: JADA Levofloxacin (Levaquin) 500 mg in 100 mls @ 100 mls/hr IV Q24H [facility] Metronidazole (Flagyl) 500 mg in 100 mls @ 100 mls/hr IV Q8H [facility] Last Infusion: 10/10/21 08:55 Dose: 0 mls/hr Documented by: JADA Ipratropium [place] (Ipratropium [place] Praveen 0.03 % 30 Ml [place]) 2 spray NOSTRIL-B TID PRN PRN Reason: Allergy Symptoms Lamotrigine (Lamotrigine 25 Mg Tablet) 25 mg PO BID@1100,2200 [facility] Last Admin: 10/10/21 10:01 Dose: 25 mg Documented by: JADA Levalbuterol HCl (Levalbuterol Hcl 1.25 Mg/0.5 Ml Vial.Neb) 1.25 mg INHALE Q8H PRN PRN Reason: Wheezing Levetiracetam (Levetiracetam Oral Soln 500 Mg/5 Ml) 200 mg PO DAILY [facility] Last Admin: 10/10/21 09:52 Dose: 200 mg Documented by: JADA Levetiracetam (Levetiracetam Oral Soln 500 Mg/5 Ml) 1,350 mg PO BEDTIME [facility] Last Admin: 10/09/21 21:38 Dose: 1,350 mg Documented by: OBI Levetiracetam (Levetiracetam Oral Soln 500 Mg/5 Ml) 50 mg PO DAILY@0400 [facility] Last Admin: 10/10/21 04:41 Dose: Not Given Documented by: PATEL Non-Admin Reason: NPO Levothyroxine Sodium (Levothyroxine Sodium 88 Mcg Tablet) 88 mcg PO DAILY@1030 [facility] Last Admin: 10/10/21 10:45 Dose: Not Given Documented by: JADA Non-Admin Reason: NPO Non-Formulary Medication (Lacosamide [Vimpat]) 95 mg PO BEDTIME [facility] Last Admin: 10/09/21 21:37 Dose: 95 mg Documented by: OBI Omeprazole (Omeprazole 20 Mg/10 Ml Susp.Recon) 2.5 mg PO DAILY [facility] Last Admin: 10/10/21 10:45 Dose: Not Given Documented by: JADA Non-Admin Reason: NPO Pharmacy Consult (Consult Rx Perform Med Rec) 1 each MISCELLANE ONCE PRN PRN Reason: Consult order Sodium Chloride (0.9 % Sodium Chloride Flush 3 Ml Syringe) 3 ml IVFLUSH QSHIFT [facility] Last Admin: 10/10/21 08:31 Dose: Not Given Documented by: JADA Non-Admin Reason: IV Running Labs CBC & Chem 7: 10/10/21 04:48 10/10/21 04:48 Labs: Laboratory Results - last 24 hr 10/09/21 10/09/21 10/09/21 11:53 11:53 11:53 WBC 17.4 H MCV MCH MCHC RDW Plt Count MPV Immature Gran % (Auto) Neut % (Auto) Lymph % (Auto) [place] % (Auto) Eos % (Auto) Baso % (Auto) Lymph # (Auto) [place] # (Auto) Eos # (Auto) Baso # (Auto) Abs Immat Gran (auto) Absolute Neuts (auto) Absolute Nucleated RBC Nucleated RBC % (auto) VBG pH VBG pCO2 VBG pO2 VBG HCO3 VBG O2 Saturation VBG Base Excess Anion Gap Estim Creat Clear Calc Estimated GFR Fasting Glucose Lactic Acid Calcium Total Bilirubin AST ALT Alkaline Phosphatase B-Natriuretic Peptide 69 Total Protein Albumin Urine Color Urine Appearance Urine pH Ur Specific [place] Urine Protein Urine Glucose (UA) Urine Ketones Urine Blood Urine Nitrite Ur Leukocyte Esterase Urine RBC Urine WBC Ur Squamous Epith Cells Urine Bacteria Influenza Type A (PCR) NEGATIVE Influenza Type B (PCR) NEGATIVE RSV RNA Qual (PCR) NEGATIVE SARS-CoV-2 RNA (RT-PCR) NEGATIVE 10/09/21 10/10/21 10/10/21 13:47 04:48 04:48 WBC 15.8 H MCV 101.1 H MCH 33.2 H MCHC 32.9 RDW 13.5 Plt Count 180 MPV 9.9 Immature Gran % (Auto) 1.0 H Neut % (Auto) 84.0 H Lymph % (Auto) 8.6 L [place] % (Auto) 5.6 Eos % (Auto) 0.5 Baso % (Auto) 0.3 Lymph # (Auto) 1.4 [place] # (Auto) 0.9 Eos # (Auto) 0.1 Baso # (Auto) 0.1 Abs Immat Gran (auto) 0.15 H Absolute Neuts (auto) 13.3 H Absolute Nucleated RBC 0.000 Nucleated RBC % (auto) 0.0 VBG pH VBG pCO2 VBG pO2 VBG HCO3 VBG O2 Saturation VBG Base Excess Anion Gap 14 Estim Creat Clear Calc 56.9 Estimated GFR > 60 Fasting Glucose 107 H Lactic Acid Calcium 8.8 Total Bilirubin 0.8 AST 15 ALT 13 Alkaline Phosphatase 121 H B-Natriuretic Peptide Total Protein 6.3 L Albumin 3.3 L Urine Color YELLOW Urine Appearance HAZY Urine pH 6.5 Ur Specific [place] 1.015 Urine Protein TRACE Urine Glucose (UA) NEG Urine Ketones NEG Urine Blood NEG Urine Nitrite POS H Ur Leukocyte Esterase NEG Urine RBC 0 Urine WBC 15-29 H Ur Squamous Epith Cells TRACE Urine Bacteria 4+ Influenza Type A (PCR) Influenza Type B (PCR) RSV RNA Qual (PCR) SARS-CoV-2 RNA (RT-PCR) 10/10/21 10/10/21 04:48 04:50 WBC MCV MCH MCHC RDW Plt Count MPV Immature Gran % (Auto) Neut % (Auto) Lymph % (Auto) [place] % (Auto) Eos % (Auto) Baso % (Auto) Lymph # (Auto) [place] # (Auto) Eos # (Auto) Baso # (Auto) Abs Immat Gran (auto) Absolute Neuts (auto) Absolute Nucleated RBC Nucleated RBC % (auto) VBG pH 7.44 H VBG pCO2 35 VBG pO2 60 VBG HCO3 24 VBG O2 Saturation 89.0 VBG Base Excess 1.2 Anion Gap Estim Creat Clear Calc Estimated GFR Fasting Glucose Lactic Acid 0.8 Calcium Total Bilirubin AST ALT Alkaline Phosphatase B-Natriuretic Peptide Total Protein Albumin Urine Color Urine Appearance Urine pH Ur Specific [place] Urine Protein Urine Glucose (UA) Urine Ketones Urine Blood Urine Nitrite Ur Leukocyte Esterase Urine RBC Urine WBC Ur Squamous Epith Cells Urine Bacteria Influenza Type A (PCR) Influenza Type B (PCR) RSV RNA Qual (PCR) SARS-CoV-2 RNA (RT-PCR) Microbiology Microbiology Results: Microbiology 10/09/21 13:54 Urine Culture - Preliminary Urine clean catch - Urine lind top Gram negative chadd Assessment and Plan (1) Aspiration pneumonia: Status: Acute (2) Down syndrome: Status: Acute (3) LEONIE on CPAP: Status: Acute Plan 61-year-old female presents with aspiration pneumonia in the backdrop of chronic aspiration in the setting of Down syndrome. Fevers to 101 at home; in the ER given Levaquin and Flagyl and nebs. 1.Aspiration pneumonia -Levaquin/Flagyl(2) -DuoNebs q.4 hours while awake. . . Aggressive suctioning as tolerated -titrate O2 to maintain sats greater than equal to 92% -speech consult in am... Sister insists on pureed diet with thickened liquids despite risks 2. Seizures -continue outpatient therapies. . . -patient to sister to bring in meds that are non formulary 3.Downs syndrome -continue clonazepam and Aricept -add benzos if clinically indicated 4. Hypothyroidism -continue outpatient supplements 5. GERD -omeprazole suspension Full code Lovenox Will require treatment of aspiration pneumonia with IV antibiotics and supplemental O2. Quality Stroke Does the patient have a stroke diagnosis?: No VTE Prior VTE?: No VTE Risk Level:: Medical - moderate - high VTE Device Contraindication: Treatment Not Indicated VTE Drug Contraindication: N/A - Med Ordered
[2021-10-10] MEDS: levoFLOXacin/D5W 500 MG/100 ML PIGGYBACK 100 MG IV (14:00)
[2021-10-10] MEDS: Enoxaparin Sodium 40 MG/0.4 ML SYRINGE SUBCUT (18:38)
[2021-10-10] MEDS: Acetaminophen 325 MG TABLET 650 MG PO (21:46)
[2021-10-10] MEDS: Donepezil HCl 5 MG TABLET PO (21:46)
[2021-10-10] MEDS: levETIRAcetam Oral Soln 500 MG/5 ML 1350 MG PO (21:49)
[2021-10-10] MEDS: Albuterol/Iprat 2.5/0.5MG 3 ML AMPUL.NEB INHALE (21:52)
[2021-10-10] MEDS: 0.9 % Sodium Chloride Flush 3 ML SYRINGE IVFLUSH (22:04)
[2021-10-11 03:29] VITALS: BP 117/56; PULSE 67; RESP 17; TEMP 36.4; O2SAT 94
[2021-10-11] MEDS: levETIRAcetam Oral Soln 500 MG/5 ML 50 MG PO (03:39)
[2021-10-11 06:02] LABS: MANUAL DIFF FLAG NO
[2021-10-11 06:11] LABS: Basophils Absolute Auto 0.1 X10*3/uL (0.0-0.2); Basophils Percent Auto 0.6 % (0-2); Eosinophils Absolute Auto 0.1 X10*3/uL (0.0-0.4); Eosinophils Percent Auto 0.8 % (0-4); Hematocrit 34.9 % (37.0-47.0); Hemoglobin 11.3 g/dl (12.0-16.0); Imm Gran Abs Auto 0.13 X10*3/uL (0.00-0.03); Imm Gran Pct Auto 1.3 % (0.0-0.4); Lymphocytes Absolute Auto 1.3 X10*3/uL (1.2-4.9); Lymphocytes Percent Auto 13.4 % (20-40); Mean Corpuscular HGB Conc 32.4 g/dl (31.0-35.0); Mean Corpuscular Hemoglobin 32.8 pg (27.0-33.0); Mean Corpuscular Volume 101.5 fL (80.0-98.0); Mean Platelet Volume 10.5 fL (9.4-12.3); Monocytes Absolute Auto 0.6 X10*3/uL (0.1-1.2); Monocytes Percent Auto 6.4 % (2-11); Neutrophils Absolute Auto 7.6 x10*3/uL (2.0-8.3); Neutrophils Percent Auto 77.5 % (45-73); Platelet Count 177 X10*3/uL (160-400); Red Blood Count 3.44 X10*6/uL (4.20-5.50); Red Cell Distribution Width 13.4 % (11.0-16.0); White Blood Count 9.8 X10*3/uL (4.8-10.8)
[2021-10-11 06:23] LABS: Alanine Aminotransferase 12 U/L (0-31); Alkaline Phosphatase 103 U/L (39-117); Anion Gap 12 (12-20); Aspartate Amino Transferase 12 U/L (5-31); Bilirubin Total 0.3 mg/dL (0.0-1.0); Blood Urea Nitrogen 11 mg/dL (9-16); Calcium 8.6 mg/dL (8.4-10.2); Carbon Dioxide 23 mmol/L (22-29); Chloride 113 mmol/L (96-108); Creatinine Clr Calc Pharmacy 71.2; Estimated Glomerular Filt Rate > 60; Glucose Fasting 109 mg/dL (60-99); Potassium 3.5 mmol/L (3.3-5.1); Sodium 144 mmol/L (135-145); Total Protein 5.8 g/dL (6.5-8.0)
[2021-10-11] MEDS: metroNIDAZOLE/NS 500 MG/100 ML PIGGYBACK 100 MG IV ×2 (06:28→17:48)
[2021-10-11 07:53] VITALS: BP 133/62; PULSE 74; RESP 17; TEMP 36.9; O2SAT 94
[2021-10-11] MEDS: levETIRAcetam Oral Soln 500 MG/5 ML 200 MG PO (07:55)
[2021-10-11] MEDS: 0.9 % Sodium Chloride Flush 3 ML SYRINGE IVFLUSH ×2 (07:55→17:49)
[2021-10-11] MEDS: lamoTRIgine 25 MG TABLET PO ×2 (08:00→22:51)
[2021-10-11] MEDS: Levothyroxine Sodium 88 MCG TABLET PO (11:19)
[2021-10-11 11:20] VITALS: BP 138/63; PULSE 70; RESP 18; TEMP 37.2; O2SAT 93
--- NOTE | 2021-10-11 11:30 | MHC.CM.PN ---
[facility] REVIEWED, PER HOSPITALIST PT NOT READY FOR D/C, [facility] FOLLOWING FOR DETENTION PER PT REQUEST, PT WILL NEED BLS TRANSPORT HOME WHEN CLEARED FOR D/C.
--- NOTE | 2021-10-11 12:33 | MHC.SL.SWA ---
Speech Pathologist Impression: Oropharyngeal dysphagia Dysphasia Diet Status: Continue baseline. Recommend continue speech therapy after discharge through [facility]. Liquid Consistency and Strategies for Safe Swallow: Liquid Intake Recommendation: Honey Thick Liquid Intake Strategies: Small Sips Via syringe Solid Food Consistency: Dietary Recommendations: Pureed (NDD1) Additional Modifications to Solid Foods: Patient has history of aspiration and is on a modified diet. Per sister, patient is on mostly pureed food at home, thickened liquids given by syringe, her pills are crushed or in liquid form. Patient must be awake and alert for PO intake. May need to hold tray depending on mental status, lethargy. Recommend continue baseline PUREED solids (NDD1), HONEY THICK liquids, and pills CRUSHED in PUREE or liquid form when available. Patient requires TOTAL assistance feeding. 1/2 teaspoon bites of pureed food at a time. Patient swallows 2-3 times per bite. Ensure oral cavity is cleared before giving more bites. Liquids administered by syringe. Provide cues as needed for upright position throughout meals. Aspiration precautions apply. SKEIN DRIER updated diet order in [facility]. Updated care team via [place]. SKEIN DRIER will f/u tomorrow. Oral Medication Intake: Crushed with Puree Please contact the pharmacy regarding appropriate crushable or liquid drug formulations that are available whenever modified delivery is recommended. Compensatory Strategies and Precautions to be Taken for Safe Swallow: Sitting Upright (90 deg) Double Swallow No Straw Small Bites and Sips Rate of Ingestion Change Oral Check Supervision While Eating and Drinking for Safe Swallow: Total Assistance (1:1) Swallowing Recommended Treatments: Compens. Strategy Educat. Recommendation for Speech: Inpatient Speech Therapy Speech Therapy through [facility] [ End ] Frequency/Duration: M-F while inpatient Date Range for Service Req: Timeline to reassess: Supervisor Furnace Room Clinican/Clinical Fellow: No Supervisory Statement: I have reviewed and agree with the student/clinical fellow's documentation: N/A Speech Language Pathologist: Dayana Yu M.A., CCC-SKEIN DRIER
[2021-10-11 15:15] VITALS: BP 104/56; PULSE 57; RESP 18; TEMP 36.6; O2SAT 96
[2021-10-11] MEDS: levoFLOXacin/D5W 500 MG/100 ML PIGGYBACK 100 MG IV (16:10)
--- NOTE | 2021-10-11 16:20 | P.PNIM_ITS ---
Subjective Subjective Date of Service: 10/11/21 Interval History: More awake today. Sister says more interactive Review of Systems Unable to obtain Physical Exam Vital Signs: Vital Signs: Last Vital Signs Temp 97.9 F 10/11/21 15:15 Pulse 57 10/11/21 15:15 Resp 18 10/11/21 15:15 BP 104/56 L 10/11/21 15:15 Pulse Ox 96 10/11/21 15:15 Oxygen Flow Rate 2 10/09/21 14:44 BMI result Body Mass Index 30.7 Const: Other: Nonverbal Resp: Other: Improved aeration to the bases; coarse rhonchi have resolved Cardio: Other: No S4; positive S1-S2; no S3 murmurs rubs or gallops GI: Other: Soft nontender nondistended with normoactive bowel sounds Extrem: Other: No edema bilaterally Objective Data Active Medications Acetaminophen (Acetaminophen 325 Mg Tablet) 650 mg PO BEDTIME [facility] Last Admin: 10/10/21 21:46 Dose: 650 mg Documented by: OBI Acetaminophen (Acetaminophen Supp 650 Mg Supp.Rect) 650 mg [place] Q6H PRN PRN Reason: Pain, Mild (Pain Scale 1-3) Last Admin: 10/10/21 06:01 Dose: 650 mg Documented by: PATEL Albuterol/Ipratropium (Albuterol/Iprat 2.5/0.5mg 3 Ml Ampul.Neb) 3 ml INHALE RQ4H PRN PRN Reason: Shortness of Breath/Wheezing Last Admin: 10/10/21 21:52 Dose: 3 ml Documented by: TIFFANIE Clonazepam (Clonazepam 0.5 Mg Tablet) 0.25 mg PO DAILY PRN PRN Reason: Seizures Donepezil HCl (Donepezil Hcl 5 Mg Tablet) 5 mg PO DAILY@2200 [facility] Last Admin: 10/10/21 21:46 Dose: 5 mg Documented by: OBI Enoxaparin Sodium (Enoxaparin Sodium 40 Mg/0.4 Ml Syringe) 40 mg SUBCUT Q24H [facility] Last Admin: 10/10/21 18:38 Dose: 40 mg Documented by: JADA Guaifenesin (Guaifenesin [place] 600 Mg Tab.Er.12h) 600 mg PO BID PRN PRN Reason: cough Levofloxacin (Levaquin) 500 mg in 100 mls @ 100 mls/hr IV Q24H [facility] Last Admin: 10/11/21 16:10 Dose: 100 mls/hr Documented by: KARI Metronidazole (Flagyl) 500 mg in 100 mls @ 100 mls/hr IV Q8H [facility] Last Infusion: 10/11/21 07:38 Dose: 0 mls/hr Documented by: KARI Ipratropium [place] (Ipratropium [place] Praveen 0.03 % 30 Ml [place]) 2 spray NOSTRIL-B TID PRN PRN Reason: Allergy Symptoms Lamotrigine (Lamotrigine 25 Mg Tablet) 25 mg PO BID@1100,2200 [facility] Last Admin: 10/11/21 08:00 Dose: 25 mg Documented by: KARI Levalbuterol HCl (Levalbuterol Hcl 1.25 Mg/0.5 Ml Vial.Neb) 1.25 mg INHALE Q8H PRN PRN Reason: Wheezing Levetiracetam (Levetiracetam Oral Soln 500 Mg/5 Ml) 200 mg PO DAILY [facility] Last Admin: 10/11/21 07:55 Dose: 200 mg Documented by: KARI Levetiracetam (Levetiracetam Oral Soln 500 Mg/5 Ml) 1,350 mg PO BEDTIME [facility] Last Admin: 10/10/21 21:49 Dose: 1,350 mg Documented by: OBI Levetiracetam (Levetiracetam Oral Soln 500 Mg/5 Ml) 50 mg PO DAILY@0400 [facility] Last Admin: 10/11/21 03:39 Dose: 50 mg Documented by: OBI Levothyroxine Sodium (Levothyroxine Sodium 88 Mcg Tablet) 88 mcg PO DAILY@1030 [facility] Last Admin: 10/11/21 11:19 Dose: 88 mcg Documented by: KARI Non-Formulary Medication (Lacosamide [Vimpat]) 95 mg PO BEDTIME [facility] Last Admin: 10/10/21 21:50 Dose: 95 mg Documented by: OBI Omeprazole (Omeprazole 20 Mg/10 Ml Susp.Recon) 2.5 mg PO DAILY [facility] Last Admin: 10/11/21 11:20 Dose: 2.5 mg Documented by: KARI Pharmacy Consult (Consult Rx Perform Med Rec) 1 each MISCELLANE ONCE PRN PRN Reason: Consult order Sodium Chloride (0.9 % Sodium Chloride Flush 3 Ml Syringe) 3 ml IVFLUSH QSHIFT [facility] Last Admin: 10/11/21 07:55 Dose: 3 ml Documented by: KARI Labs CBC & Chem 7: 10/11/21 05:42 10/11/21 05:42 Labs: Laboratory Results - last 24 hr 10/11/21 10/11/21 05:42 05:42 MCV 101.5 H MCH 32.8 MCHC 32.4 RDW 13.4 Plt Count 177 MPV 10.5 Immature Gran % (Auto) 1.3 H Neut % (Auto) 77.5 H Lymph % (Auto) 13.4 L [place] % (Auto) 6.4 Eos % (Auto) 0.8 Baso % (Auto) 0.6 Lymph # (Auto) 1.3 [place] # (Auto) 0.6 Eos # (Auto) 0.1 Baso # (Auto) 0.1 Abs Immat Gran (auto) 0.13 H Absolute Neuts (auto) 7.6 Absolute Nucleated RBC 0.000 Nucleated RBC % (auto) 0.0 Anion Gap 12 Estim Creat Clear Calc 71.2 Estimated GFR > 60 Fasting Glucose 109 H Calcium 8.6 Total Bilirubin 0.3 AST 12 ALT 12 Alkaline Phosphatase 103 Total Protein 5.8 L Albumin 3.0 L Microbiology Microbiology Results: Microbiology 10/09/21 11:52 Blood Culture - Preliminary Blood - Venous No growth after 48 hours. 10/09/21 11:37 Blood Culture - Preliminary Blood - Venous No growth after 48 hours. 10/09/21 13:54 Urine Culture - Final Urine clean catch - Urine lind top Klebsiella pneumoniae 10/10/21 04:48 Blood Culture - Preliminary Blood - Venous No growth after 24 hours. 10/10/21 04:48 Blood Culture - Preliminary Blood - Venous No growth after 24 hours. Assessment and Plan (1) Aspiration pneumonia: Status: Acute (2) Dysphagia causing pulmonary aspiration with swallowing: Status: Acute (3) Down syndrome: Status: Acute Plan 61-year-old female presents with aspiration pneumonia in the backdrop of chronic aspiration in the setting of Down syndrome. Fevers to 101 at home; in the ER given Levaquin and Flagyl and nebs. 1.Aspiration pneumonia -Levaquin/Flagyl(3) -DuoNebs q.4 hours while awake. . . Aggressive suctioning as tolerated -titrate O2 to maintain sats greater than equal to 92% -diet as per speech 2. Seizures -continue outpatient therapies. . . -patient to sister to bring in meds that are non formulary 3.Downs syndrome -continue clonazepam and Aricept -add benzos if clinically indicated 4. Hypothyroidism -continue outpatient supplements 5. GERD -omeprazole suspension Full code Lovenox Will require treatment of aspiration pneumonia with IV antibiotics and supplemental O2. Quality Stroke Does the patient have a stroke diagnosis?: No VTE Prior VTE?: No VTE Risk Level:: Medical - moderate - high VTE Device Contraindication: Treatment Not Indicated VTE Drug Contraindication: N/A - Med Ordered
[2021-10-11] MEDS: Enoxaparin Sodium 40 MG/0.4 ML SYRINGE SUBCUT (17:48)
[2021-10-11 19:14] VITALS: BP 133/55; PULSE 88; RESP 18; TEMP 36.2; O2SAT 98
[2021-10-11] MEDS: Donepezil HCl 5 MG TABLET PO (21:18)
[2021-10-11] MEDS: Acetaminophen 325 MG TABLET 650 MG PO (21:18)
[2021-10-11] MEDS: levETIRAcetam Oral Soln 500 MG/5 ML 1350 MG PO (21:21)
[2021-10-11] MEDS: Albuterol/Iprat 2.5/0.5MG 3 ML AMPUL.NEB INHALE (23:16)
[2021-10-11 23:18] VITALS: PULSE 88; RESP 18; O2SAT 98
[2021-10-12] VITALS (8 sets, daily range): BP systolic 102–138; BP diastolic 46–69; PULSE 55–85; RESP 15–20; TEMP 36.1–36.7; O2SAT 96–98
[2021-10-12] MEDS: 0.9 % Sodium Chloride Flush 3 ML SYRINGE IVFLUSH ×4 (00:24→22:01)
[2021-10-12] MEDS: metroNIDAZOLE/NS 500 MG/100 ML PIGGYBACK 100 MG IV ×4 (00:30→21:59)
[2021-10-12] MEDS: levETIRAcetam Oral Soln 500 MG/5 ML 50 MG PO (04:34)
[2021-10-12 06:53] LABS: MANUAL DIFF FLAG NO
[2021-10-12 06:56] LABS: Basophils Absolute Auto 0.1 X10*3/uL (0.0-0.2); Basophils Percent Auto 1.1 % (0-2); Eosinophils Absolute Auto 0.1 X10*3/uL (0.0-0.4); Hematocrit 35.2 % (37.0-47.0); Hemoglobin 11.5 g/dl (12.0-16.0); Imm Gran Abs Auto 0.18 X10*3/uL (0.00-0.03); Imm Gran Pct Auto 3.2 % (0.0-0.4); Lymphocytes Absolute Auto 1.4 X10*3/uL (1.2-4.9); Lymphocytes Percent Auto 25.7 % (20-40); Mean Corpuscular HGB Conc 32.7 g/dl (31.0-35.0); Mean Corpuscular Hemoglobin 33.1 pg (27.0-33.0); Mean Corpuscular Volume 101.4 fL (80.0-98.0); Mean Platelet Volume 10.6 fL (9.4-12.3); Monocytes Absolute Auto 0.6 X10*3/uL (0.1-1.2); Monocytes Percent Auto 9.9 % (2-11); Neutrophils Absolute Auto 3.2 x10*3/uL (2.0-8.3); Neutrophils Percent Auto 58.1 % (45-73); Platelet Count 206 X10*3/uL (160-400); Red Blood Count 3.47 X10*6/uL (4.20-5.50); Red Cell Distribution Width 13.4 % (11.0-16.0); White Blood Count 5.6 X10*3/uL (4.8-10.8)
[2021-10-12 07:13] LABS: Alanine Aminotransferase 10 U/L (0-31); Alkaline Phosphatase 94 U/L (39-117); Anion Gap 10 (12-20); Aspartate Amino Transferase 10 U/L (5-31); Bilirubin Total 0.2 mg/dL (0.0-1.0); Blood Urea Nitrogen 14 mg/dL (9-16); Calcium 8.6 mg/dL (8.4-10.2); Carbon Dioxide 26 mmol/L (22-29); Chloride 112 mmol/L (96-108); Creatinine Clr Calc Pharmacy 70.2; Estimated Glomerular Filt Rate > 60; Glucose Fasting 109 mg/dL (60-99); Potassium 3.7 mmol/L (3.3-5.1); Sodium 144 mmol/L (135-145); Total Protein 5.7 g/dL (6.5-8.0)
[2021-10-12] MEDS: Levothyroxine Sodium 88 MCG TABLET PO (09:25)
[2021-10-12] MEDS: lamoTRIgine 25 MG TABLET PO ×2 (09:25→22:10)
[2021-10-12] MEDS: levETIRAcetam Oral Soln 500 MG/5 ML 200 MG PO (09:25)
--- NOTE | 2021-10-12 09:48 | P.CONPL_ITS ---
History of Present Illness History of Present Illness Consult date: 10/11/21 Requesting physician: Louie Casiano Reason for consult: dyspnea, cough and pneumonia Chief complaint: aspiration Narrative: I have seen this 61 years old female this morning, admitted to since 10/09/21. She is a known case of Down's syndrome , with significant physical and mental impairment, receives total care by her elder sister at home. She was brought to the emergency room after she had a prolonged bout of cough, followed by continued shortness of breath and low-grade fever. In the emergency room she was afebrile, his the chest sounded congested. Chest x-ray did not show definite pneumonia, but there was a concern of aspiration pneumonitis. Patient is being treated with IV Levaquin, oxygen supplement and BD updrafts, and is improving slowly. She has been spine seen by speech therapy, recommended soft diet, which she is now tolerating. Her sister is feeding her by the bedside. Patient is prone to have bouts of minimal aspiration followed by cough and congestion, but usually recovers well at home. Review of Systems Review of Systems: Yes Unobtainable due to mental condition [facility] Past Medical History Medical History Down syndrome Dysphagia causing pulmonary aspiration with swallowing LEONIE on CPAP Social History Social History Household Members: Family Housing: Apartment Do you presently have visiting nurse or other home services: Yes Patient Tobacco Use Status: Never used Tobacco service: No Current occupational status: disabled Meds Allergies Allergy/AdvReac Type Severity Reaction Status Date / Time fentanyl [FENTANYL] Allergy Intermediate UNKNOWN Verified 04/22/21 14:08 codeine [CODEINE] Allergy Unknown UNKNOWN Verified 04/22/21 14:08 lorazepam [From ATIVAN] Allergy Unknown UNKNOWN Verified 04/22/21 14:08 oxcarbazepine [OXCARBAZEPINE] Allergy Unknown UNKNOWN Verified 04/22/21 14:08 penicillin V Allergy Unknown Unknown Verified 04/22/21 14:08 Penicillins [PENICILLINS] Allergy Unknown DIFFICULTY Verified 04/22/21 14:08 BREATHING Sulfa (Sulfonamide Allergy Unknown DIFFICULTY Verified 04/22/21 14:08 Antibiotics) BREATHING [SULFA (SULFONAMIDE ANTIBIOTICS)] levofloxacin [From LEVAQUIN] AdvReac Intermediate hallucinati Verified 04/22/21 14:08 ons phenodol Allergy Unknown Unknown Uncoded 10/21/20 14:48 Active Medications: Current Medications Acetaminophen (Acetaminophen 325 Mg Tablet) 650 mg PO BEDTIME [facility] Last Admin: 10/11/21 21:18 Dose: 650 mg Documented by: Acetaminophen (Acetaminophen Supp 650 Mg Supp.Rect) 650 mg [place] Q6H PRN PRN Reason: Pain, Mild (Pain Scale 1-3) Last Admin: 10/10/21 06:01 Dose: 650 mg Documented by: Albuterol/Ipratropium (Albuterol/Iprat 2.5/0.5mg 3 Ml Ampul.Neb) 3 ml INHALE RQ4H PRN PRN Reason: Shortness of Breath/Wheezing Last Admin: 10/11/21 23:16 Dose: 3 ml Documented by: Clonazepam (Clonazepam 0.5 Mg Tablet) 0.25 mg PO DAILY PRN PRN Reason: Seizures Donepezil HCl (Donepezil Hcl 5 Mg Tablet) 5 mg PO DAILY@2200 [facility] Last Admin: 10/11/21 21:18 Dose: 5 mg Documented by: Enoxaparin Sodium (Enoxaparin Sodium 40 Mg/0.4 Ml Syringe) 40 mg SUBCUT Q24H [facility] Last Admin: 10/11/21 17:48 Dose: 40 mg Documented by: Guaifenesin (Guaifenesin La 600 Mg Tab.Er.12h) 600 mg PO BID PRN PRN Reason: cough Levofloxacin (Levaquin) 500 mg in 100 mls @ 100 mls/hr IV Q24H [facility] Last Infusion: 10/11/21 17:10 Dose: Infused Documented by: Metronidazole (Flagyl) 500 mg in 100 mls @ 100 mls/hr IV Q8H [facility] Last Infusion: 10/12/21 09:32 Dose: Infused Documented by: Ipratropium [place] (Ipratropium [place] Praveen 0.03 % 30 Ml [place]) 2 spray NOSTRIL-B TID PRN PRN Reason: Allergy Symptoms Lamotrigine (Lamotrigine 25 Mg Tablet) 25 mg PO BID@1100,2200 [facility] Last Admin: 10/12/21 09:25 Dose: 25 mg Documented by: Levalbuterol HCl (Levalbuterol Hcl 1.25 Mg/0.5 Ml Vial.Neb) 1.25 mg INHALE Q8H PRN PRN Reason: Wheezing Levetiracetam (Levetiracetam Oral Soln 500 Mg/5 Ml) 200 mg PO DAILY [facility] Last Admin: 10/12/21 09:25 Dose: 200 mg Documented by: Levetiracetam (Levetiracetam Oral Soln 500 Mg/5 Ml) 1,350 mg PO BEDTIME [facility] Last Admin: 10/11/21 21:21 Dose: 1,350 mg Documented by: Levetiracetam (Levetiracetam Oral Soln 500 Mg/5 Ml) 50 mg PO DAILY@0400 [facility] Last Admin: 10/12/21 04:34 Dose: 50 mg Documented by: Levothyroxine Sodium (Levothyroxine Sodium 88 Mcg Tablet) 88 mcg PO DAILY@1030 [facility] Last Admin: 10/12/21 09:25 Dose: 88 mcg Documented by: Non-Formulary Medication (Lacosamide [Vimpat]) 95 mg PO BEDTIME [facility] Last Admin: 10/11/21 22:51 Dose: 95 mg Documented by: Omeprazole (Omeprazole 20 Mg/10 Ml Susp.Recon) 2.5 mg PO DAILY [facility] Last Admin: 10/12/21 09:26 Dose: 2.5 mg Documented by: Pharmacy Consult (Consult Rx Perform Med Rec) 1 each MISCELLANE ONCE PRN PRN Reason: Consult order Sodium Chloride (0.9 % Sodium Chloride Flush 3 Ml Syringe) 3 ml IVFLUSH QSHIFT [facility] Last Admin: 10/12/21 07:52 Dose: 3 ml Documented by: Home Medications Medication Instructions Recorded Confirmed Last Taken Type donepezil 5 mg disintegrating 5 mg PO DAILY@219910/21/20 10/09/21 10/08/21 21:00 History tablet ipratropium bromide 21 mcg (0.03 2 spray INTRANASAL TID PRN 10/21/20 10/09/21 10/08/21 21:00 History %) nasal spray lamotrigine 25 mg chewable 25 mg PO BID@1100,0 10/21/20 10/09/21 10/08/21 21:00 History dispersible tablet levothyroxine 88 mcg tablet 88 mcg PO DAILY@1030 0510/09/21 10/08/21 12:00 History acetaminophen 325 mg tablet 650 mg PO BEDTIME 10/09/21 10/09/21 10/08/21 History clonazepam 0.25 mg disintegrating 0.25 mg PO DAILY PRN 10/09/21 10/09/21 Unknown History tablet lacosamide 10 mg/mL oral solution 95 mg PO BEDTIME 10/09/21 10/09/21 10/08/21 History (Vimpat) levalbuterol HCl 1.25 mg/3 mL 1.25 mg INHALATION Q8H PRN 10/09/21 10/09/21 10/08/21 21:00 History solution for nebulization levetiracetam 100 mg/mL oral 50 mg PO DAILY@0400 10/09/21 10/09/21 10/08/21 History solution levetiracetam 100 mg/mL oral 1,350 mg PO BEDTIME 10/09/21 10/09/21 10/08/21 21:00 History solution (Keppra) levetiracetam 100 mg/mL oral 200 mg DAILY 10/09/21 10/09/21 10/09/21 09:00 H istory solution (Keppra) nystatin 100,000 unit/gram topical 1 appl TOPICAL TID PRN 10/09/21 10/09/21 Unknown History cream omeprazole magnesium 2.5 mg oral 2.5 mg PO DAILY 10/09/21 10/09/21 10/08/21 History suspension,delayed release Physical Exam Vital Signs: Vital Signs: Last Vital Signs Temp 97.7 F 10/12/21 07:38 Pulse 66 10/12/21 07:38 Resp 15 10/12/21 07:38 BP 124/58 L 10/12/21 07:38 Pulse Ox 96 10/12/21 07:38 Oxygen Flow Rate 2 10/09/21 14:44 BMI result Body Mass Index 30.7 Const: General: no acute distress, alert and awake (But not conversing) Orientation/consciousness: patient oriented x3 HEENT: Head: Yes normal to inspection General nose exam: No nasal polyps present and No nasal discharge present Face and sinus: Yes sinuses nontender Mouth: oropharynx normal Throat: Yes posterior oropharynx normal Eyes: General: appearance normal, both eyes and all related structures Neck: Neck: Yes normal visual inspection, Yes no lymphadenopathy, Yes trachea midline and Yes no JVD Thyroid: Thyroid normal Chest: Chest palpation & inspection: normal inspection of the chest, normal palpation of entire chest wall and no tenderness Resp: Other: Patient does have good breath sounds on both sides, the breath sounds are harsh, with scattered inspiratory crackles. But no wheezes. Cardio: Palpation: normal PMI Rate: regular rate Rhythm: regular rhythm Heart sounds: no gallops and no murmurs GI: Palpation (GI): Soft to palpation, nontender, No hepatosplenomegaly present and no masses Auscultation: normal bowel sounds Back/Spine/Pelvis: Thoracic/Lumbar Spine: thoracic and lumbar spine normal to inspection and thoraco-lumbar ROM limited Skin: General skin exam: no rashes or lesions noted Neuro: General: patient oriented x3, No gait normal (Non ambulatory), no focal motor deficits and other (Has general body stiffness) Cranial nerves: Yes CN's II-XII intact bilaterally Extrem: General: Yes normal to inspection, Yes no clubbing, cyanosis or edema and Yes no calf tenderness Psych: Speech and movement: Normal speech and movement present Results Laboratory Findings CBC and BMP: 10/12/21 06:23 10/12/21 06:23 Abnormal lab findings: Abnormal Labs 10/09/21 10/09/21 10/10/21 11:53 13:47 04:48 WBC 17.4 H 15.8 H RBC 4.13 L 3.61 L Hgb Hct 36.5 L MCV 101.7 H 101.1 H MCH 33.2 H 33.2 H Immature Gran % (Auto) 1.0 H 1.0 H Neut % (Auto) 88.0 H 84.0 H Lymph % (Auto) 5.2 L 8.6 L Lymph # (Auto) 0.9 L Abs Immat Gran (auto) 0.17 H 0.15 H Absolute Neuts (auto) 15.4 H 13.3 H VBG pH Chloride Carbon Dioxide Anion Gap Fasting Glucose Alkaline Phosphatase Total Protein Albumin Urine Nitrite POS H Urine WBC 15-29 H 10/10/21 10/10/21 10/11/21 04:48 04:50 05:42 WBC RBC 3.44 L Hgb 11.3 L Hct 34.9 L MCV 101.5 H MCH Immature Gran % (Auto) 1.3 H Neut % (Auto) 77.5 H Lymph % (Auto) 13.4 L Lymph # (Auto) Abs Immat Gran (auto) 0.13 H Absolute Neuts (auto) VBG pH 7.44 H Chloride Carbon Dioxide 21 L Anion Gap Fasting Glucose 107 H Alkaline Phosphatase 121 H Total Protein 6.3 L Albumin 3.3 L Urine Nitrite Urine WBC 10/11/21 10/12/21 10/12/21 05:42 06:23 06:23 WBC RBC 3.47 L Hgb 11.5 L Hct 35.2 L MCV 101.4 H MCH 33.1 H Immature Gran % (Auto) 3.2 H Neut % (Auto) Lymph % (Auto) Lymph # (Auto) Abs Immat Gran (auto) 0.18 H Absolute Neuts (auto) VBG pH Chloride 113 H 112 H Carbon Dioxide Anion Gap 10 L Fasting Glucose 109 H 109 H Alkaline Phosphatase Total Protein 5.8 L 5.7 L Albumin 3.0 L 3.0 L Urine Nitrite Urine WBC Microbiology: Microbiology 10/10/21 04:48 Blood - Venous Blood Culture - Preliminary No growth after 48 hours. 10/10/21 04:48 Blood - Venous Blood Culture - Preliminary No growth after 48 hours. 10/09/21 11:52 Blood - Venous Blood Culture - Preliminary No growth after 48 hours. 10/09/21 11:37 Blood - Venous Blood Culture - Preliminary No growth after 48 hours. 10/09/21 13:54 Urine clean catch - Urine lind top Urine Culture - Final Klebsiella pneumoniae Diagnostic Findings Chest x-ray: report reviewed and image reviewed Assessment and Plan (1) Down syndrome: Status: Acute (2) LEONIE on CPAP: Status: Acute (3) Dysphagia causing pulmonary aspiration with swallowing: Status: Acute Plan This patient does have history of intermittent dysphagia of with mild pulmonary aspirations. At present there is no definite pneumonia but the history and physical findings are consistent with aspiration bronchitis. She also has obstructive sleep apnea and uses CPAP regularly at home. Recc. Okay to treat with IV Levaquin for a course of 7 days, however after 2 days she can be switched to oral Levaquin. So well 0 evaluation and patient's sister to follow the instructions given by speech therapy. Updraft of albuterol Q 4 hours p.r.n.. Oxygen supplementation to keep O2 sat above 90%. And if it is above 90% she can be weaned off the O2. When she goes back home she will start using her CPAP at night regula rly. Procedures Date of Service Date of Service: 10/11/21
[2021-10-12 09:54] LABS: Procalcitonin 0.05 ng/mL
[2021-10-12] MEDS: levoFLOXacin/D5W 500 MG/100 ML PIGGYBACK 100 MG IV (14:45)
--- NOTE | 2021-10-12 15:43 | MHC.SLORD ---
Speech Language Pathology Order Status: Attempted to see PT this a.m., Pt deeply asleep, possibly due to medication. Sister at bedside reported Pt had taken small amount of puree by spoon this a.m. and HT liquid by syringe in a small amount which sister administered. Sister had lengthy c/o re: care, Pt's lack of sleep, changes in routines, other questions about RT therapy, but no currently concerned about diet and swallowing. Will re-attempt tomorrow.
--- NOTE | 2021-10-12 16:04 | P.PNIM_ITS ---
Subjective Subjective Date of Service: 10/12/21 Interval History: Sister at bedside. Pt still on O2 [3L]. Some coughing with taking pills Review of Systems Review of Systems: Yes Unobtainable due to mental status Physical Exam Vital Signs: Vital Signs: Last Vital Signs Temp 97.8 F 10/12/21 15:23 Pulse 85 10/12/21 15:23 Resp 18 10/12/21 15:23 BP 138/69 10/12/21 15:23 Pulse Ox 97 10/12/21 15:23 Oxygen Flow Rate 2 10/09/21 14:44 BMI result Body Mass Index 30.7 Gen: in no acute distress HEENT: Downs facies, sclera anicteric, moist mucus membranes Neck: supple Lungs: wet insp crackles L base Heart: regular rate and rhythm, no murmurs Abd: soft, non-tender, non-distended Ext: no edema Skin: warm/well-perfused Neuro: alert, nonverbal Psych: impaired insight Objective Data Active Medications Acetaminophen (Acetaminophen 325 Mg Tablet) 650 mg PO BEDTIME [facility] Last Admin: 10/11/21 21:18 Dose: 650 mg Documented by: TERE Acetaminophen (Acetaminophen Supp 650 Mg Supp.Rect) 650 mg [place] Q6H PRN PRN Reason: Pain, Mild (Pain Scale 1-3) Last Admin: 10/10/21 06:01 Dose: 650 mg Documented by: PATEL Albuterol/Ipratropium (Albuterol/Iprat 2.5/0.5mg 3 Ml Ampul.Neb) 3 ml INHALE RQ4H PRN PRN Reason: Shortness of Breath/Wheezing Last Admin: 10/11/21 23:16 Dose: 3 ml Documented by: TIFFANIE Clonazepam (Clonazepam 0.5 Mg Tablet) 0.25 mg PO DAILY PRN PRN Reason: Seizures Donepezil HCl (Donepezil Hcl 5 Mg Tablet) 5 mg PO DAILY@2200 [facility] Last Admin: 10/11/21 21:18 Dose: 5 mg Documented by: TERE Enoxaparin Sodium (Enoxaparin Sodium 40 Mg/0.4 Ml Syringe) 40 mg SUBCUT Q24H [facility] Last Admin: 10/11/21 17:48 Dose: 40 mg Documented by: TERE Guaifenesin (Guaifenesin La 600 Mg Tab.Er.12h) 600 mg PO BID PRN PRN Reason: cough Levofloxacin (Levaquin) 500 mg in 100 mls @ 100 mls/hr IV Q24H [facility] Last Infusion: 10/12/21 15:48 Dose: 0 mls/hr Documented by: [place] Metronidazole (Flagyl) 500 mg in 100 mls @ 100 mls/hr IV Q8H [facility] Last Infusion: 10/12/21 15:48 Dose: 0 mls/hr Documented by: [place] Ipratropium Simon (Ipratropium [place] Praveen 0.03 % 30 Ml [place]) 2 spray NOSTRIL-B TID PRN PRN Reason: Allergy Symptoms Lamotrigine (Lamotrigine 25 Mg Tablet) 25 mg PO BID@1100,2200 [facility] Last Admin: 10/12/21 09:25 Dose: 25 mg Documented by: [place] Levalbuterol HCl (Levalbuterol Hcl 1.25 Mg/0.5 Ml Vial.Neb) 1.25 mg INHALE Q8H PRN PRN Reason: Wheezing Levetiracetam (Levetiracetam Oral Soln 500 Mg/5 Ml) 200 mg PO DAILY [facility] Last Admin: 10/12/21 09:25 Dose: 200 mg Documented by: [place] Levetiracetam (Levetiracetam Oral Soln 500 Mg/5 Ml) 1,350 mg PO BEDTIME [facility] Last Admin: 10/11/21 21:21 Dose: 1,350 mg Documented by: TERE Levetiracetam (Levetiracetam Oral Soln 500 Mg/5 Ml) 50 mg PO DAILY@0400 [facility] Last Admin: 10/12/21 04:34 Dose: 50 mg Documented by: LYNN Levothyroxine Sodium (Levothyroxine Sodium 88 Mcg Tablet) 88 mcg PO DAILY@1030 [facility] Last Admin: 10/12/21 09:25 Dose: 88 mcg Documented by: [place] Non-Formulary Medication (Lacosamide [Vimpat]) 95 mg PO BEDTIME [facility] Last Admin: 10/11/21 22:51 Dose: 95 mg Documented by: TERE Omeprazole (Omeprazole 20 Mg/10 Ml Susp.Recon) 2.5 mg PO DAILY [facility] Last Admin: 10/12/21 09:26 Dose: 2.5 mg Documented by: [place] Pharmacy Consult (Consult Rx Perform Med Rec) 1 each MISCELLANE ONCE PRN PRN Reason: Consult order Sodium Chloride (0.9 % Sodium Chloride Flush 3 Ml Syringe) 3 ml IVFLUSH QSHIFT [facility] Last Admin: 10/12/21 14:45 Dose: 3 ml Documented by: [place] Labs CBC & Chem 7: 10/12/21 06:23 10/12/21 06:23 Labs: Laboratory Results - last 24 hr 10/12/21 10/12/21 10/12/21 06:23 06:23 06:23 MCV 101.4 H MCH 33.1 H MCHC 32.7 RDW 13.4 Plt Count 206 MPV 10.6 Immature Gran % (Auto) 3.2 H Neut % (Auto) 58.1 Lymph % (Auto) 25.7 [place] % (Auto) 9.9 Eos % (Auto) 2.0 Baso % (Auto) 1.1 Lymph # (Auto) 1.4 [place] # (Auto) 0.6 Eos # (Auto) 0.1 Baso # (Auto) 0.1 Abs Immat Gran (auto) 0.18 H Absolute Neuts (auto) 3.2 Absolute Nucleated RBC 0.000 Nucleated RBC % (auto) 0.0 Anion Gap 10 L Estim Creat Clear Calc 70.2 Estimated GFR > 60 Fasting Glucose 109 H Calcium 8.6 Total Bilirubin 0.2 AST 10 ALT 10 Alkaline Phosphatase 94 Total Protein 5.7 L Albumin 3.0 L Procalcitonin 0.05 Microbiology Microbiology Results: Microbiology 10/10/21 04:48 Blood Culture - Preliminary Blood - Venous No growth after 48 hours. 10/10/21 04:48 Blood Culture - Preliminary Blood - Venous No growth after 48 hours. 10/09/21 11:52 Blood Culture - Preliminary Blood - Venous No growth after 48 hours. 10/09/21 11:37 Blood Culture - Preliminary Blood - Venous No growth after 48 hours. Assessment and Plan (1) Aspiration pneumonia: Status: Acute (2) Dysphagia causing pulmonary aspiration with swallowing: Status: Acute (3) Down syndrome: Status: Acute Plan hospital d#4 for 61yo F with T21 presenting with fevers + cough, admitted for aspiration PNA # aspiration PNA - d#4 levofloxacin + metronidazole - suctioning, nebs - SPECIAL EDUCATION PROFESSIONAL: NDD1 solids/honey-thick liquids - pulm following # acute hypoxic resp failure - wean O2 as tolerated # sz disorder - continue lacosamide, lamotrigine, levetiracetam # mood disorder # cognitive impairment - continue donepezil, clonazepam # hypothyroid - conitnue LT4 # GERd - PPI # VTE ppx - LMWH In my clinical judgment, the patient requires continued hospitalization for the following reasons: IV ABX, suppl O2, aspiration risk Quality Stroke Does the patient have a stroke diagnosis?: No VTE Prior VTE?: No VTE Risk Level:: Medical - moderate - high VTE Device Contraindication: Treatment Not Indicated VTE Drug Contraindication: N/A - Med Ordered
[2021-10-12] MEDS: Albuterol/Iprat 2.5/0.5MG 3 ML AMPUL.NEB INHALE ×2 (17:35→20:48)
[2021-10-12] MEDS: Enoxaparin Sodium 40 MG/0.4 ML SYRINGE SUBCUT (18:34)
[2021-10-12] MEDS: Acetaminophen 325 MG TABLET 650 MG PO (21:59)
[2021-10-12] MEDS: Donepezil HCl 5 MG TABLET PO (21:59)
[2021-10-12] MEDS: levETIRAcetam Oral Soln 500 MG/5 ML 1350 MG PO (22:00)
[2021-10-13] VITALS (7 sets, daily range): BP systolic 109–126; BP diastolic 54–71; PULSE 55–91; RESP 15–18; TEMP 36.1–36.7; O2SAT 90–98
[2021-10-13] MEDS: levETIRAcetam Oral Soln 500 MG/5 ML 50 MG PO (05:23)
[2021-10-13] MEDS: metroNIDAZOLE/NS 500 MG/100 ML PIGGYBACK 100 MG IV ×3 (05:25→21:43)
[2021-10-13] MEDS: levETIRAcetam Oral Soln 500 MG/5 ML 200 MG PO (08:49)
[2021-10-13] MEDS: lamoTRIgine 25 MG TABLET PO ×2 (08:50→21:48)
[2021-10-13] MEDS: 0.9 % Sodium Chloride Flush 3 ML SYRINGE IVFLUSH ×3 (08:50→21:49)
--- NOTE | 2021-10-13 09:43 | P.PNPL_ITS ---
Subjective Subjective Date of Service: 10/13/21 Principal diagnosis: ASPIRATION BRONCHITIS/PNEUMONIA Interval history: THIS 61 YEARS OLD PATIENT'S SISTER IS ALWAYS AT THE BEDSIDE, SHE HAD CALLED AND WANTED ME TO CHECK HER BECAUSE SINCE YESTERDAY SHE HAD INCREASED BOUTS OF COUGH. PATIENT IS QUIET AND RESTING THIS MORNING, SHE HAS NO FEVER OR CHILLS. SHE IS BEING FED THICKENED LIQUIDS, HER SISTER PROVIDES TOTAL CARE, AND ZUNIGA HER VERY CAREFULLY. SHE HAS A TENDENCY TO GET BOUTS OF COUGH WHEN SHE IS IRRITATED, OR MOVED AROUND. HER COUGH IS MOSTLY DRY. WITH THE BOUTS OF COUGH FOR ANY ACTIVITY HER O2 SATS DO FALL INTO HIGH 80S. SHE IS STILL ON OXYGEN 2 L/MINUTE. Objective Data Labs CBC & Chem 7: 10/12/21 06:23 10/12/21 06:23 Labs: Laboratory Results - last 24 hr 10/12/21 06:23 Procalcitonin 0.05 Microbiology Microbiology Results: Microbiology 10/10/21 04:48 Blood - Venous Blood Culture - Preliminary No growth after 48 hours. 10/10/21 04:48 Blood - Venous Blood Culture - Preliminary No growth after 48 hours. 10/09/21 11:52 Blood - Venous Blood Culture - Preliminary No growth after 48 hours. 10/09/21 11:37 Blood - Venous Blood Culture - Preliminary No growth after 48 hours. 10/09/21 13:54 Urine clean catch - Urine lind top Urine Culture - Final Klebsiella pneumoniae Review of Systems Review of Systems Yes Unobtainable due to mental condition Physical Exam Vital Signs: Vital Signs: Last Vital Signs Temp 97 F 10/13/21 07:57 Pulse 60 10/13/21 07:57 Resp 15 10/13/21 07:57 BP 112/57 L 10/13/21 07:57 Pulse Ox 96 10/13/21 07:57 Oxygen Flow Rate 2 10/09/21 14:44 BMI result Body Mass Index 30.7 Resp: Other: CHEST AUSCULTATION REVEALS GOOD BREATH SOUNDS ON BOTH SIDES. NO WHEEZES ARE HEARD, ONLY A FEW INSPIRATORY CREPITATIONS OVER THE BASILAR AREAS, WHEN SHE IS ABLE TO TAKE A DEEP BREATH. Procedures Date of Service Date of Service: 10/13/21 Assessment and Plan Assessment and plan (1) Dysphagia causing pulmonary aspiration with swallowing: Problem details: THIS PROBLEM IS MINIMAL NOW , BUT DOES HAS SOME COUGH , AND UPPER AIRWAYS CONGESTION OFF AND ON . SISTER FEEDS HER VERY CAUTIOUSLY, CURRENTLY ON THICKENED LIQUIDS DIET . Status: Acute (2) LEONIE on CPAP: Problem details: USES CPAP EVERY NIGHT , BEING FOLLOWED BY DR. [facility]. BECAUSE RECENT DENTAL WORK THE MASK FITTING IS SOMEWHAT LOSE . BUT SHE IS STILL USING MORE THAN 7-8 HOURS PER NIGHT AND BENEFITTING. Status: Acute (3) Down syndrome: Problem details: NEEDS FULL CARE 26/12 OLDER SISTER PROVIDES SHIP'S ENGINEER CARE , AN EXCELLENT WORK, AND I DID COMMEND THE SISTER FOR PROVIDING EXCELLENT CARE. Status: Acute (4) Aspiration pneumonia: Status: Acute (5) Hypoxemia: Status: Acute Plan BECAUSE OF HER DIFFICULTY IN SWALLOWING OFF AND ON SHE IS A CANDIDATE TO GET PULMONARY ASPIRATIONS. CLINICAL DIAGNOSIS OF POSSIBLE ASPIRATION PNEUMONIA WAS MADE, BUT NO DEFINITE CONSOLIDATION ON THE CHEST X-RAY. SHE IS BEING TREATED WITH COMBINATION OF LEVAQUIN AND METRONIDAZOLE. NOW THAT SHE IS CLINICALLY STABLE THE MEDS COULD BE GIVEN BY MOUTH, AND IF SO THEN SHE WILL BE READY FOR DISCHARGE HOME. SHE IS ON OXYGEN 2 L/MINUTE, CAN BE WEANED OFF IF O2 SAT REMAINS ABOVE 90%. O2 SATS DROP DOWN TEMPORARILY AFTER BOUTS OF COUGH, AND LONG HYPOXEMIA DOES NOT LOST MORE THAN A FEW MINUTES, SHE WOULD NOT NEED OXYGEN AT HOME. Time Spent With Patient Time: Total time spent is greater than 50% in coordination of care (as documented) at patient's floor/unit and/or counseling patient: Progress Note: Quality Stroke Does the patient have a stroke diagnosis?: No
[2021-10-13] MEDS: Levothyroxine Sodium 88 MCG TABLET PO (10:17)
--- NOTE | 2021-10-13 12:02 | HO.PM.IMPN ---
Subjective Subjective Date of Service: 10/13/21 Interval History: O2 requirement down to 2L via NC Occasional dry cough provoked by anxiety/patient movement Review of Systems Review of Systems: Yes Unobtainable due to mental status Physical Exam Vital Signs: Vital Signs: Last Vital Signs Temp 97.3 F 10/13/21 11:48 Pulse 57 10/13/21 11:48 Resp 15 10/13/21 11:48 BP 111/54 L 10/13/21 11:48 Pulse Ox 90 L 10/13/21 11:48 Oxygen Flow Rate 2 10/09/21 14:44 BMI result Body Mass Index 30.7 Gen: in no acute distress HEENT: Downs facies, sclera anicteric, moist mucus membranes Neck: supple Lungs: occasional insp crackles L base Heart: regular rate and rhythm, no murmurs Abd: soft, non-tender, non-distended Ext: no edema Skin: warm/well-perfused Neuro: alert, nonverbal Psych: impaired insight Objective Data Active Medications Acetaminophen (Acetaminophen 325 Mg Tablet) 650 mg PO BEDTIME [facility] Last Admin: 10/12/21 21:59 Dose: 650 mg Documented by: ANDRY Acetaminophen (Acetaminophen Supp 650 Mg Supp.Rect) 650 mg [place] Q6H PRN PRN Reason: Pain, Mild (Pain Scale 1-3) Last Admin: 10/10/21 06:01 Dose: 650 mg Documented by: PATEL Albuterol/Ipratropium (Albuterol/Iprat 2.5/0.5mg 3 Ml Ampul.Neb) 3 ml INHALE RQ4H PRN PRN Reason: Shortness of Breath/Wheezing Last Admin: 10/12/21 20:48 Dose: 3 ml Documented by: CORA Clonazepam (Clonazepam 0.5 Mg Tablet) 0.25 mg PO DAILY PRN PRN Reason: Seizures Donepezil HCl (Donepezil Hcl 5 Mg Tablet) 5 mg PO DAILY@2200 [facility] Last Admin: 10/12/21 21:59 Dose: 5 mg Documented by: ANDRY Enoxaparin Sodium (Enoxaparin Sodium 40 Mg/0.4 Ml Syringe) 40 mg SUBCUT Q24H [facility] Last Admin: 10/12/21 18:34 Dose: 40 mg Documented by: CHARLOTTE Guaifenesin (Guaifenesin La 600 Mg Tab.Er.12h) 600 mg PO BID PRN PRN Reason: cough Guaifenesin/Dextromethorphan (Guaifenesin Dm 100/10/5 Ml 5 Ml Syrup) 5 ml PO Q4H PRN PRN Reason: cough Levofloxacin (Levaquin) 500 mg in 100 mls @ 100 mls/hr IV Q24H [facility] Last Infusion: 10/12/21 15:48 Dose: 0 mls/hr Documented by: CHARLOTTE Metronidazole (Flagyl) 500 mg in 100 mls @ 100 mls/hr IV Q8H [facility] Last Infusion: 10/13/21 06:49 Dose: 0 mls/hr Documented by: ANDRY Ipratropium [place] (Ipratropium [place] Praveen 0.03 % 30 Ml [place]) 2 spray NOSTRIL-B TID PRN PRN Reason: Allergy Symptoms Lamotrigine (Lamotrigine 25 Mg Tablet) 25 mg PO BID@1100,2200 [facility] Last Admin: 10/13/21 08:50 Dose: 25 mg Documented by: CHACHA Levalbuterol HCl (Levalbuterol Hcl 1.25 Mg/0.5 Ml Vial.Neb) 1.25 mg INHALE Q8H PRN PRN Reason: Wheezing Levetiracetam (Levetiracetam Oral Soln 500 Mg/5 Ml) 200 mg PO DAILY [facility] Last Admin: 10/13/21 08:49 Dose: 200 mg Documented by: CHACHA Levetiracetam (Levetiracetam Oral Soln 500 Mg/5 Ml) 1,350 mg PO BEDTIME [facility] Last Admin: 10/12/21 22:00 Dose: 1,350 mg Documented by: ANDRY Levetiracetam (Levetiracetam Oral Soln 500 Mg/5 Ml) 50 mg PO DAILY@0400 [facility] Last Admin: 10/13/21 05:23 Dose: 50 mg Documented by: ANDRY Levothyroxine Sodium (Levothyroxine Sodium 88 Mcg Tablet) 88 mcg PO DAILY@1030 [facility] Last Admin: 10/13/21 10:17 Dose: 88 mcg Documented by: HO.N-ARMKA Non-Formulary Medication (Lacosamide [Vimpat]) 95 mg PO BEDTIME [facility] Last Admin: 10/12/21 22:00 Dose: 95 mg Documented by: ANDRY Omeprazole (Omeprazole 20 Mg/10 Ml Susp.Recon) 2.5 mg PO DAILY [facility] Last Admin: 10/13/21 08:49 Dose: 2.5 mg Documented by: CHACHA Pharmacy Consult (Consult Rx Perform Med Rec) 1 each MISCELLANE ONCE PRN PRN Reason: Consult order Sodium Chloride (0.9 % Sodium Chloride Flush 3 Ml Syringe) 3 ml IVFLUSH QSHIFT [facility] Last Admin: 10/13/21 08:50 Dose: 3 ml Documented by: CHACHA Labs CBC & Chem 7: 10/12/21 06:23 10/12/21 06:23 Assessment and Plan (1) Aspiration pneumonia: Status: Acute (2) Dysphagia causing pulmonary aspiration with swallowing: Status: Acute (3) Down syndrome: Status: Acute Plan hospital d#5 for 61yo F with T21 presenting with fevers + cough, admitted for aspiration PNA # aspiration PNA - d#5 levofloxacin + metronidazole - suctioning, nebs - CERTIFIED OPTICIAN: NDD1 solids/honey-thick liquids - pulm following # acute hypoxic resp failure - wean O2 as tolerated # sz disorder - continue lacosamide, lamotrigine, levetiracetam # mood disorder # cognitive impairment - continue donepezil, clonazepam # hypothyroid - conitnue LT4 # GERD - PPI # VTE ppx - LMWH In my clinical judgment, the patient requires continued hospitalization for the following reasons: IV ABX, suppl O2, aspiration risk Quality Stroke Does the patient have a stroke diagnosis?: No VTE Prior VTE?: No VTE Risk Level:: Medical - moderate - high VTE Device Contraindication: Treatment Not Indicated VTE Drug Contraindication: N/A - Med Ordered
--- NOTE | 2021-10-13 12:15 | MHC.CM.PN ---
EMR REVIEWED, PER HOSPITALIST PT TO BE WEANED OFF O2 AND IF PT DOES WELL ANTI PT WILL BE ABLE TO D/C HOME TOMORROW. D/C PLAN: HOME W/NEW HVNA AND 24 HR CARE, ACTION FOR BLS TRANSPORT
[2021-10-13] MEDS: levoFLOXacin/D5W 500 MG/100 ML PIGGYBACK 100 MG IV (14:28)
--- NOTE | 2021-10-13 14:31 | MHC.CLN ---
Addendum entered by Adelia Monroe RD 10/13/21 14:34: CONSULT FOR POSSIBLE STAGE I TO COCCYX. SEE NOTE BELOW. NO ADDITIONAL NUTRITION INTERVENTIONS AT THIS TIME. Original Note: F/U PER LAW ENFORCEMENT DIRECTOR, DIET=PUREE WITH HONEY THICK LIQUIDS. INTAKE VARIABLE X 3 DAYS, 0-75%. REDNESS UNDER BUTTOCKS NOTED. NO OPEN AREAS NOTED.
[2021-10-13] MEDS: Enoxaparin Sodium 40 MG/0.4 ML SYRINGE SUBCUT (17:00)
[2021-10-13] MEDS: Albuterol/Iprat 2.5/0.5MG 3 ML AMPUL.NEB INHALE (19:26)
[2021-10-13] MEDS: Acetaminophen 325 MG TABLET 650 MG PO (21:37)
[2021-10-13] MEDS: Donepezil HCl 5 MG TABLET PO (21:38)
[2021-10-13] MEDS: levETIRAcetam Oral Soln 500 MG/5 ML 1350 MG PO (21:38)
[2021-10-14] VITALS (8 sets, daily range): BP systolic 104–143; BP diastolic 51–65; PULSE 58–91; RESP 16–18; TEMP 36.3–36.7; O2SAT 95–100
[2021-10-14] MEDS: levETIRAcetam Oral Soln 500 MG/5 ML 50 MG PO (04:58)
[2021-10-14 06:51] LABS: Anion Gap 14 (12-20); Blood Urea Nitrogen 12 mg/dL (9-16); Calcium 8.8 mg/dL (8.4-10.2); Carbon Dioxide 26 mmol/L (22-29); Chloride 108 mmol/L (96-108); Creatinine Clr Calc Pharmacy 66.3; Estimated Glomerular Filt Rate > 60; Glucose Random 97 mg/dL (60-115); Potassium 4.1 mmol/L (3.3-5.1); Sodium 144 mmol/L (135-145)
[2021-10-14 07:05] LABS: Procalcitonin 0.03 ng/mL
[2021-10-14] MEDS: levETIRAcetam Oral Soln 500 MG/5 ML 200 MG PO (09:50)
[2021-10-14] MEDS: 0.9 % Sodium Chloride Flush 3 ML SYRINGE IVFLUSH ×3 (09:59→23:35)
[2021-10-14] MEDS: metroNIDAZOLE/NS 500 MG/100 ML PIGGYBACK 100 MG IV ×3 (09:59→22:22)
[2021-10-14] MEDS: Levothyroxine Sodium 88 MCG TABLET PO (10:07)
[2021-10-14] MEDS: lamoTRIgine 25 MG TABLET PO ×2 (10:07→20:29)
--- NOTE | 2021-10-14 11:02 | MHC.SLORD ---
Speech Language Pathology Order Status: Attempted to see PT this a.m., Pt sleeping w/ sister reporting that Pt has some seizures early a.m. Sister additionally reported that Pt ate well at lunch and dinner yesterday. Pt this a.m. not appropriate for trials, per report of sister has been tolerating current diet (NDD1/HT) w/ adaptations for administration of Honey Thick liquids (by syringe). Will continue to follow.
[2021-10-14] MEDS: levoFLOXacin/D5W 500 MG/100 ML PIGGYBACK 100 MG IV (13:28)
--- NOTE | 2021-10-14 13:38 | HO.PM.IMPN ---
Subjective Subjective Date of Service: 10/14/21 Interval History: On 1.5L O2 via NC Cough improving. Review of Systems Review of Systems: Yes Unobtainable due to mental status Physical Exam Vital Signs: Vital Signs: Last Vital Signs Temp 98.1 F 10/14/21 12:00 Pulse 62 10/14/21 12:00 Resp 18 10/14/21 12:00 BP 115/55 L 10/14/21 12:00 Pulse Ox 100 10/14/21 12:00 Oxygen Flow Rate 2 10/09/21 14:44 BMI result Body Mass Index 30.7 Gen: in no acute distress HEENT: Downs facies, sclera anicteric, moist mucus membranes Neck: supple Lungs: CTAB Heart: regular rate and rhythm, no murmurs Abd: soft, non-tender, non-distended Ext: no edema Skin: warm/well-perfused Neuro: alert, nonverbal Psych: impaired insight Objective Data Active Medications Acetaminophen (Acetaminophen 325 Mg Tablet) 650 mg PO BEDTIME [facility] Last Admin: 10/13/21 21:37 Dose: 650 mg Documented by: ANDRY Acetaminophen (Acetaminophen Supp 650 Mg Supp.Rect) 650 mg [place] Q6H PRN PRN Reason: Pain, Mild (Pain Scale 1-3) Last Admin: 10/10/21 06:01 Dose: 650 mg Documented by: PATEL Albuterol/Ipratropium (Albuterol/Iprat 2.5/0.5mg 3 Ml Ampul.Neb) 3 ml INHALE RQ4H PRN PRN Reason: Shortness of Breath/Wheezing Last Admin: 10/13/21 19:26 Dose: 3 ml Documented by: SILVANA Clonazepam (Clonazepam 0.5 Mg Tablet) 0.25 mg PO DAILY PRN PRN Reason: Seizures Donepezil HCl (Donepezil Hcl 5 Mg Tablet) 5 mg PO DAILY@2200 [facility] Last Admin: 10/13/21 21:38 Dose: 5 mg Documented by: ANDRY Enoxaparin Sodium (Enoxaparin Sodium 40 Mg/0.4 Ml Syringe) 40 mg SUBCUT Q24H [facility] Last Admin: 10/13/21 17:00 Dose: 40 mg Documented by: CHARLOTTE Guaifenesin (Guaifenesin La 600 Mg Tab.Er.12h) 600 mg PO BID PRN PRN Reason: cough Guaifenesin/Dextromethorphan (Guaifenesin Dm 100/10/5 Ml 5 Ml Syrup) 5 ml PO Q4H PRN PRN Reason: cough Levofloxacin (Levaquin) 500 mg in 100 mls @ 100 mls/hr IV Q24H [facility] Last Admin: 10/14/21 13:28 Dose: 100 mls/hr Documented by: NADIA Metronidazole (Flagyl) 500 mg in 100 mls @ 100 mls/hr IV Q8H [facility] Last Infusion: 10/14/21 11:08 Dose: 100 mls/hr Documented by: NADIA Ipratropium [place] (Ipratropium [place] Praveen 0.03 % 30 Ml [place]) 2 spray NOSTRIL-B TID PRN PRN Reason: Allergy Symptoms Lamotrigine (Lamotrigine 25 Mg Tablet) 25 mg PO BID@1100,2200 [facility] Last Admin: 10/14/21 10:07 Dose: 25 mg Documented by: NADIA Levalbuterol HCl (Levalbuterol Hcl 1.25 Mg/0.5 Ml Vial.Neb) 1.25 mg INHALE Q8H PRN PRN Reason: Wheezing Levetiracetam (Levetiracetam Oral Soln 500 Mg/5 Ml) 200 mg PO DAILY [facility] Last Admin: 10/14/21 09:50 Dose: 200 mg Documented by: NADIA Levetiracetam (Levetiracetam Oral Soln 500 Mg/5 Ml) 1,350 mg PO BEDTIME [facility] Last Admin: 10/13/21 21:38 Dose: 1,350 mg Documented by: ANDRY Levetiracetam (Levetiracetam Oral Soln 500 Mg/5 Ml) 50 mg PO DAILY@0400 [facility] Last Admin: 10/14/21 04:58 Dose: 50 mg Documented by: ANDRY Levothyroxine Sodium (Levothyroxine Sodium 88 Mcg Tablet) 88 mcg PO DAILY@1030 [facility] Last Admin: 10/14/21 10:07 Dose: 88 mcg Documented by: NADIA Non-Formulary Medication (Lacosamide [Vimpat]) 95 mg PO BEDTIME [facility] Last Admin: 10/13/21 21:37 Dose: 95 mg Documented by: ANDRY Omeprazole (Omeprazole 20 Mg/10 Ml Susp.Recon) 2.5 mg PO DAILY [facility] Last Admin: 10/14/21 09:53 Dose: 2.5 mg Documented by: NADIA Pharmacy Consult (Consult Rx Perform Med Rec) 1 each MISCELLANE ONCE PRN PRN Reason: Consult order Sodium Chloride (0.9 % Sodium Chloride Flush 3 Ml Syringe) 3 ml IVFLUSH QSHIFT [facility] Last Admin: 10/14/21 09:59 Dose: 3 ml Documented by: NADIA Labs CBC & Chem 7: 10/12/21 06:23 10/14/21 05:44 Labs: Laboratory Results - last 24 hr 10/14/21 10/14/21 05:44 05:44 Anion Gap 14 Estim Creat Clear Calc 66.3 Estimated GFR > 60 Random Glucose 97 Calcium 8.8 Procalcitonin 0.03 Assessment and Plan (1) Aspiration pneumonia: Status: Acute (2) Dysphagia causing pulmonary aspiration with swallowing: Status: Acute (3) Down syndrome: Status: Acute Plan hospital d#6 for 61yo F with T21 presenting with fevers + cough, admitted for aspiration PNA # aspiration PNA - d#6/ levofloxacin + metronidazole - suctioning, nebs - 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: NDD1 solids/honey-thick liquids - pulm following # acute hypoxic resp failure - wean O2 as tolerated # sz disorder - continue lacosamide, lamotrigine, levetiracetam # mood disorder # cognitive impairment - continue donepezil, clonazepam # hypothyroid - conitnue LT4 # GERD - PPI # VTE ppx - LMWH In my clinical judgment, the patient requires continued hospitalization for the following reasons: IV ABX, suppl O2, aspiration risk Quality Stroke Does the patient have a stroke diagnosis?: No VTE Prior VTE?: No VTE Risk Level:: Medical - moderate - high VTE Device Contraindication: Treatment Not Indicated VTE Drug Contraindication: N/A - Med Ordered
[2021-10-14] MEDS: Albuterol/Iprat 2.5/0.5MG 3 ML AMPUL.NEB INHALE ×2 (14:46→21:48)
[2021-10-14] MEDS: 0.9 % Sodium Chloride 1,000 ML 250 ML IVCONT (15:27)
--- NOTE | 2021-10-14 15:48 | PC.NURSE ---
PT'S SISTER/CAREGIVER REQUESTED PRN DOSE OF KEPPRA. STATES PT IS HAVING SEIZURE ACTIVITY. DR QUINTANA MADE AWARE. NO SEIZURE ACTIVITY NOTED BY MYSELF OR STAFF.
--- NOTE | 2021-10-14 16:44 | P.CNNE_ITS ---
History of Present Illness Data of Consult Service Date: 10/14/21 Primary Care Provider: Ramesh Stratton MD HPI Reason for consult: Seizure 61 years old woman with Down syndrome and severe dementia. She also had complex partial seizure disorder. She used to see me but had not seen me since 2017. She was seeing Dr. Bennett and [facility]. At this time she her sister was in charge in giving her multiple anti seizure medicines. She was in hospital after an episode of coughing and aspiration and resulting in aspiration pneumonia. Sister reported that she was having multiple episodes of sudden jerking but there were typically triggered by a visual or sensory stimulus such as someone touching her or someone suddenly coming to the room. There was no evidence of any recent generalized convulsion. She was not communicative. Review of Systems Review of Systems: Review of system could not be done PMFSH Past Medical History Medical History (Updated 10/14/21 @ 16:47 by Destinee Archibald MD) Down syndrome Dysphagia causing pulmonary aspiration with swallowing Hypoxemia LEONIE on CPAP Social History Social History Household Members: Family Housing: Apartment Do you presently have visiting nurse or other home services: Yes Patient Tobacco Use Status: Never used Tobacco service: No Current occupational status: disabled Meds Allergies Allergy/AdvReac Type Severity Reaction Status Date / Time fentanyl [FENTANYL] Allergy Intermediate UNKNOWN Verified 04/22/21 14:08 codeine [CODEINE] Allergy Unknown UNKNOWN Verified 04/22/21 14:08 lorazepam [From ATIVAN] Allergy Unknown UNKNOWN Verified 04/22/21 14:08 oxcarbazepine [OXCARBAZEPINE] Allergy Unknown UNKNOWN Verified 04/22/21 14:08 penicillin V Allergy Unknown Unknown Verified 04/22/21 14:08 Penicillins [PENICILLINS] Allergy Unknown DIFFICULTY Verified 04/22/21 14:08 BREATHING Sulfa (Sulfonamide Allergy Unknown DIFFICULTY Verified 04/22/21 14:08 Antibiotics) BREATHING [SULFA (SULFONAMIDE ANTIBIOTICS)] levofloxacin [From LEVAQUIN] AdvReac Intermediate hallucinati Verified 04/22/21 14:08 ons phenodol Allergy Unknown Unknown Uncoded 10/21/20 14:48 Active Medications: Current Medications Acetaminophen (Acetaminophen 325 Mg Tablet) 650 mg PO BEDTIME [facility] Last Admin: 10/13/21 21:37 Dose: 650 mg Documented by: Acetaminophen (Acetaminophen Supp 650 Mg Supp.Rect) 650 mg [place] Q6H PRN PRN Reason: Pain, Mild (Pain Scale 1-3) Last Admin: 10/10/21 06:01 Dose: 650 mg Documented by: Albuterol/Ipratropium (Albuterol/Iprat 2.5/0.5mg 3 Ml Ampul.Neb) 3 ml INHALE RQ4H PRN PRN Reason: Shortness of Breath/Wheezing Last Admin: 10/14/21 14:46 Dose: 3 ml Documented by: Donepezil HCl (Donepezil Hcl 5 Mg Tablet) 5 mg PO DAILY@2200 [facility] Last Admin: 10/13/21 21:38 Dose: 5 mg Documented by: Enoxaparin Sodium (Enoxaparin Sodium 40 Mg/0.4 Ml Syringe) 40 mg SUBCUT Q24H [facility] Last Admin: 10/13/21 17:00 Dose: 40 mg Documented by: Guaifenesin (Guaifenesin La 600 Mg Tab.Er.12h) 600 mg PO BID PRN PRN Reason: cough Guaifenesin/Dextromethorphan (Guaifenesin Dm 100/10/5 Ml 5 Ml Syrup) 5 ml PO Q4H PRN PRN Reason: cough Levofloxacin (Levaquin) 500 mg in 100 mls @ 100 mls/hr IV Q24H [facility] Last Infusion: 10/14/21 14:42 Dose: Infused Documented by: Metronidazole (Flagyl) 500 mg in 100 mls @ 100 mls/hr IV Q8H [facility] Last Admin: 10/14/21 15:27 Dose: 100 mls/hr Documented by: Sodium Chloride (Ns) 1,000 mls @ 250 mls/hr IVCONT .Q4H [facility] Stop: 10/14/21 18:29 Last Admin: 10/14/21 15:27 Dose: 250 mls/hr Documented by: Ipratropium [place] (Ipratropium [place] Praveen 0.03 % 30 Ml [place]) 2 spray NOSTRIL-B TID PRN PRN Reason: Allergy Symptoms Lamotrigine (Lamotrigine 25 Mg Tablet) 25 mg PO BID@1100,2200 [facility] Last Admin: 10/14/21 10:07 Dose: 25 mg Documented by: Levalbuterol HCl (Levalbuterol Hcl 1.25 Mg/0.5 Ml Vial.Neb) 1.25 mg INHALE Q8H PRN PRN Reason: Wheezing Levetiracetam (Levetiracetam Oral Soln 500 Mg/5 Ml) 200 mg PO DAILY [facility] Last Admin: 10/14/21 09:50 Dose: 200 mg Documented by: Levetiracetam (Levetiracetam Oral Soln 500 Mg/5 Ml) 1,350 mg PO BEDTIME [facility] Last Admin: 10/13/21 21:38 Dose: 1,350 mg Documented by: Levetiracetam (Levetiracetam Oral Soln 500 Mg/5 Ml) 50 mg PO DAILY@0400 [facility] Last Admin: 10/14/21 04:58 Dose: 50 mg Documented by: Levothyroxine Sodium (Levothyroxine Sodium 88 Mcg Tablet) 88 mcg PO DAILY@1030 [facility] Last Admin: 10/14/21 10:07 Dose: 88 mcg Documented by: Non-Formulary Medication (Lacosamide [Vimpat]) 95 mg PO BEDTIME [facility] Last Admin: 10/13/21 21:37 Dose: 95 mg Documented by: Omeprazole (Omeprazole 20 Mg/10 Ml Susp.Recon) 2.5 mg PO DAILY [facility] Last Admin: 10/14/21 09:53 Dose: 2.5 mg Documented by: Pharmacy Consult (Consult Rx Perform Med Rec) 1 each MISCELLANE ONCE PRN PRN Reason: Consult order Sodium Chloride (0.9 % Sodium Chloride Flush 3 Ml Syringe) 3 ml IVFLUSH QSHIFT [facility] Last Admin: 10/14/21 16:16 Dose: 3 ml Documented by: Home Medications Medication Instructions Recorded Confirmed Last Taken Type donepezil 5 mg disintegrating 5 mg PO DAILY@219910/21/20 10/09/21 10/08/21 21:00 History tablet ipratropium bromide 21 mcg (0.03 2 spray INTRANASAL TID PRN 10/21/20 10/09/21 10/08/21 21:00 History %) nasal spray lamotrigine 25 mg chewable 25 mg PO BID@1100,219910/21/20 10/09/21 10/08/21 21:00 History dispersible tablet levothyroxine 88 mcg tablet 88 mcg PO DAILY@1030 10/21/20 10/09/21 10/08/21 12:00 History acetaminophen 325 mg tablet 650 mg PO BEDTIME 10/09/21 10/09/21 10/08/21 History clonazepam 0.25 mg disintegrating 0.25 mg PO DAILY PRN 10/09/21 10/09/21 Unknown History tablet lacosamide 10 mg/mL oral solution 95 mg PO BEDTIME 10/09/21 10/09/21 10/08/21 History (Vimpat) levalbuterol HCl 1.25 mg/3 mL 1.25 mg INHALATION Q8H PRN 10/09/21 10/09/21 10/08/21 21:00 History solution for nebulization levetiracetam 100 mg/mL oral 50 mg PO DAILY@0400 10/09/21 10/09/21 10/08/21 History solution levetiracetam 100 mg/mL oral 1,350 mg PO BEDTIME 10/09/21 10/09/21 10/08/21 21:00 History solution (Keppra) levetiracetam 100 mg/mL oral 200 mg DAILY 10/09/21 10/09/21 10/09/21 09:00 His tory solution (Keppra) nystatin 100,000 unit/gram topical 1 appl TOPICAL TID PRN 10/09/21 10/09/21 Unknown History cream omeprazole magnesium 2.5 mg oral 2.5 mg PO DAILY 10/09/21 10/09/21 10/08/21 History suspension,delayed release Physical Exam Vital Signs: Vital Signs: Last Vital Signs Temp 98.0 F 10/14/21 16:00 Pulse 91 10/14/21 16:00 Resp 18 10/14/21 16:00 BP 143/65 H 10/14/21 16:00 Pulse Ox 97 10/14/21 16:00 Oxygen Flow Rate 2 10/09/21 14:44 BMI result Body Mass Index 30.7 Neuro: Other: She was quite drowsy not communicated of and sitting with her head down. Sometime she would move her body back and forth. Examination was limited. Results Labs CBC & Chem 7: 10/12/21 06:23 10/14/21 05:44 Labs: BMP 10/14/21 05:44 Sodium 144 Potassium 4.1 Chloride 108 Carbon Dioxide 26 BUN 12 Creatinine 0.[address] revealed severe central and moderate peripheral cerebral atrophy. Microbiology Microbiology Results: Microbiology 10/09/21 11:37 Blood - Venous Blood Culture - Final No growth after 5 days. 10/09/21 11:52 Blood - Venous Blood Culture - Final No growth after 5 days. 10/10/21 04:48 Blood - Venous Blood Culture - Preliminary No growth after 48 hours. 10/10/21 04:48 Blood - Venous Blood Culture - Preliminary No growth after 48 hours. 10/09/21 13:54 Urine clean catch - Urine lind top Urine Culture - Final Klebsiella pneumoniae Assessment and Plan (1) Epilepsy: Status: Acute 61 years old woman with Down syndrome resulting in significant brain degeneration and associated severe dementia. She also suffered from epilepsy with usually complex partial type seizures which previously have resulted in staring and unresponsive episode. Recently described episodes of sudden jerking might not be a seizure. She was taking multiple antiepileptics. Because of aspiration pneumonia and UTI her mental status definitely has changed and that could also result in myoclonic type jerking. I would recommend caution would advise continuing her baseline doses of medicine and avoid over medication. (2) Toxic metabolic encephalopathy: Status: Acute Procedures Date of Service Date of Service: 10/14/21
--- NOTE | 2021-10-14 17:02 | HO.WOUNDCONS ---
History of Present Illness Data of Consult Service Date: 10/14/21 Requesting physician: Prashant Goff Primary Care Provider: Ramesh Stratton MD [facility] Reason for consult: leg wound The pt is a 61 year old female who has Downs syndrome and who has had multipe aspirations recently and now treated for pneumonia. she used to walk and ambulate but now doesnt . She can sit up and move in bed. sister takes care of her. she has a skin tear/laceration spot on posterior left thigh - not sure how happened. They are trying to keep her upright especially when she eats. Review of Systems Review of Systems: Yes Unobtainable due to mental condition [facility] Medical History (Updated 10/18/21 @ 02:07 by Janice Sage MD) Down syndrome Dysphagia causing pulmonary aspiration with swallowing Hypoxemia LEONIE on CPAP Social History Household Members: Family Housing: Apartment Do you presently have visiting nurse or other home services: Yes Patient Tobacco Use Status: Never used Tobacco service: No Current occupational status: disabled Meds Allergies Allergy/AdvReac Type Severity Reaction Status Date / Time fentanyl [FENTANYL] Allergy Intermediate UNKNOWN Verified 04/22/21 14:08 codeine [CODEINE] Allergy Unknown UNKNOWN Verified 04/22/21 14:08 lorazepam [From ATIVAN] Allergy Unknown UNKNOWN Verified 04/22/21 14:08 oxcarbazepine [OXCARBAZEPINE] Allergy Unknown UNKNOWN Verified 04/22/21 14:08 penicillin V Allergy Unknown Unknown Verified 04/22/21 14:08 Penicillins [PENICILLINS] Allergy Unknown DIFFICULTY Verified 04/22/21 14:08 BREATHING Sulfa (Sulfonamide Allergy Unknown DIFFICULTY Verified 04/22/21 14:08 Antibiotics) BREATHING [SULFA (SULFONAMIDE ANTIBIOTICS)] levofloxacin [From LEVAQUIN] AdvReac Intermediate hallucinati Verified 04/22/21 14:08 ons phenodol Allergy Unknown Unknown Uncoded 10/21/20 14:48 Home Medications Medication Instructions Recorded Confirmed Last Taken Type donepezil 5 mg disintegrating 5 mg PO DAILY@2200 10/21/20 10/09/21 10/08/21 21:00 History tablet ipratropium bromide 21 mcg (0.03 2 spray INTRANASAL TID PRN 10/21/20 10/09/2122 21:00 History %) nasal spray lamotrigine 25 mg chewable 25 mg PO BID@1100,2200 10/21/20 10/09/21 10/08/21 21:00 History dispersible tablet levothyroxine 88 mcg tablet 88 mcg PO DAILY@1030 10/21/20 10/09/21 10/08/21 12:00 History acetaminophen 325 mg tablet 650 mg PO BEDTIME 10/09/21 10/09/21 10/08/21 History clonazepam 0.25 mg disintegrating 0.25 mg PO DAILY PRN 10/09/21 10/09/21 Unknown History tablet lacosamide 10 mg/mL oral solution 95 mg PO BEDTIME 10/09/21 10/09/21 10/08/21 History (Vimpat) levalbuterol HCl 1.25 mg/3 mL 1.25 mg INHALATION Q8H PRN 10/09/21 10/09/21 10/08/21 21:00 History solution for nebulization levetiracetam 100 mg/mL oral 50 mg PO DAILY@0400 10/09/21 10/09/21 10/08/21 History solution levetiracetam 100 mg/mL oral 1,350 mg PO BEDTIME 10/09/21 10/09/21 10/08/21 21:00 History solution (Keppra) levetiracetam 100 mg/mL oral 200 mg DAILY 10/09/21 10/09/21 10/09/21 09:00 History solution (Keppra) nystatin 100,000 unit/gram topical 1 appl TOPICAL TID PRN 10/09/21 10/09/21 Unknown History cream omeprazole magnesium 2.5 mg oral 2.5 mg PO DAILY 10/09/21 10/09/21 10/08/21 History suspension,delayed release Physical Exam Vital Signs and Narrative: Vital Signs: Last Vital Signs Temp 97 F 10/16/21 16:00 Pulse 61 10/16/21 16:00 Resp 18 10/16/21 16:00 BP 119/58 L 10/16/21 16:00 Pulse Ox 96 10/16/21 16:00 Oxygen Flow Rate 2 10/09/21 14:44 BMI result Body Mass Index 30.7 Skin: Other: buttock and ischial areas fine posterior left thigh has a skin tear about 2 cm - not down to deep fat looks clean surrounding Results Labs CBC and Chem 7: 10/12/21 06:23 10/14/21 05:44 Assessment and Plan (1) Skin tear of lower leg without complication: Status: Acute pt 61 year old female with left posterior thigh skin tear, being treated for aspiration pneumonia. I do not think this is a pressure wound as it isn't a bony prominence but is probably just a skin tear due to some injury. it should heal fine - agree with keeping pt upright but moving her around also to ot get pressure to any one area. careful with moving in bed to avoid shear injury. discussed with nursing
[2021-10-14] MEDS: Enoxaparin Sodium 40 MG/0.4 ML SYRINGE SUBCUT (19:07)
[2021-10-14] MEDS: Donepezil HCl 5 MG TABLET PO (20:28)
[2021-10-14] MEDS: Acetaminophen 325 MG TABLET 650 MG PO (20:28)
[2021-10-14] MEDS: levETIRAcetam Oral Soln 500 MG/5 ML 1350 MG PO (20:29)
[2021-10-15] VITALS (8 sets, daily range): BP systolic 110–124; BP diastolic 52–83; PULSE 62–108; RESP 17–18; TEMP 36.3–37; O2SAT 91–99
[2021-10-15] MEDS: levETIRAcetam Oral Soln 500 MG/5 ML 50 MG PO ×2 (05:07→14:14)
[2021-10-15] MEDS: metroNIDAZOLE/NS 500 MG/100 ML PIGGYBACK 100 MG IV ×2 (06:32→14:41)
--- NOTE | 2021-10-15 06:40 | PC.NURSE ---
Addendum entered by Johanna Pham RN 10/15/21 07:37: NOTE SENT TO DAY HOSPITALIST CONCERNING NOTE AND ALSO DAY RN WILL FOLLOW UP SISTER HAS QUESTIONS FOR MD. Original Note: PER SISTER AT BEDSIDE SHE REPORTED PATIENT HAD A PETITE SEIZURE EPISODE CLOSE TO 0445. PT WAS ASLEEP AT SCHEDULED TIME OF LIQUID KEPPRA AND FAMILY ASKED FOR IT HELD AT THAT TIME, ALSO IS AN ORDER TO THAT AFFECT. THEN PER FAMILY KEPPRA GIVEN BY SYRINGE TO PT WITHOUT DIFFICULTY AT 0500 PER FAMILY INSTRUCTIONS AND PTS ROUTINE. SEIZURE PER FAMILY WAS A CALL OUT BY PT, THEN INTERMITTENT MILD TWITCHES TO LEFT ARM AND LEG. PT SHOWING NO S/SX RESP OR ACUTE DISTRESS OF ANY KIND WHILE THIS DEPARTMENT COORDINATOR IN ROOM. PT RESTING QUIETLY AT 0640. SISTER AT BEDSIDE AT ALL TIMES.
[2021-10-15] MEDS: 0.9 % Sodium Chloride Flush 3 ML SYRINGE IVFLUSH ×3 (07:38→20:27)
[2021-10-15] MEDS: levETIRAcetam Oral Soln 500 MG/5 ML 200 MG PO (10:05)
--- NOTE | 2021-10-15 10:31 | HO.PM.IMPN ---
Subjective Subjective Date of Service: 10/15/21 Interval History: Sister notes a few focal jerking episodes of LUE with impaired consciousness consistent with known hx of complex partial sz disorder. She says the pt's neurologist, Dr Bennett, at [facility] [place], recommends a prn dose of Keppra suspension, 50 mg. She's very sensitive to medications. Was off O2 part of yesterday, placed back on it overnight. Coughing. Still quite lethargic. Review of Systems Review of Systems: Yes Unobtainable due to mental status Physical Exam Vital Signs: Vital Signs: Last Vital Signs Temp 98.6 F 10/15/21 07:39 Pulse 69 10/15/21 07:39 Resp 18 10/15/21 07:39 BP 112/55 L 10/15/21 07:39 Pulse Ox 95 10/15/21 07:39 Oxygen Flow Rate 2 10/09/21 14:44 BMI result Body Mass Index 30.7 Gen: in no acute distress HEENT: Downs facies, sclera anicteric, moist mucus membranes Neck: supple Lungs: CTAB Heart: regular rate and rhythm, no murmurs Abd: soft, non-tender, non-distended Ext: no edema Skin: warm/well-perfused Neuro: alert, nonverbal Psych: impaired insight Objective Data Active Medications Acetaminophen (Acetaminophen 325 Mg Tablet) 650 mg PO BEDTIME [facility] Last Admin: 10/14/21 20:28 Dose: 650 mg Documented by: KIERAN Acetaminophen (Acetaminophen Supp 650 Mg Supp.Rect) 650 mg WI Q6H PRN PRN Reason: Pain, Mild (Pain Scale 1-3) Last Admin: 10/10/21 06:01 Dose: 650 mg Documented by: PATEL Albuterol/Ipratropium (Albuterol/Iprat 2.5/0.5mg 3 Ml Ampul.Neb) 3 ml INHALE RQ4H PRN PRN Reason: Shortness of Breath/Wheezing Last Admin: 10/14/21 21:48 Dose: 3 ml Documented by: SILVANA Donepezil HCl (Donepezil Hcl 5 Mg Tablet) 5 mg PO DAILY@2200 [facility] Last Admin: 10/14/21 20:28 Dose: 5 mg Documented by: KIERAN Enoxaparin Sodium (Enoxaparin Sodium 40 Mg/0.4 Ml Syringe) 40 mg SUBCUT Q24H [facility] Last Admin: 10/14/21 19:07 Dose: 40 mg Documented by: KIERAN Guaifenesin (Guaifenesin [place] 600 Mg Tab.Er.12h) 600 mg PO BID PRN PRN Reason: cough Guaifenesin/Dextromethorphan (Guaifenesin Dm 100/10/5 Ml 5 Ml Syrup) 5 ml PO Q4H PRN PRN Reason: cough Levofloxacin (Levaquin) 500 mg in 100 mls @ 100 mls/hr IV Q24H [facility] Stop: 10/15/21 16:00 Last Infusion: 10/14/21 14:42 Dose: 100 mls/hr Documented by: NADIA Metronidazole (Flagyl) 500 mg in 100 mls @ 100 mls/hr IV Q8H [facility] Stop: 10/15/21 16:00 Last Infusion: 10/15/21 07:40 Dose: 0 mls/hr Documented by: TOÑITO Ipratropium [place] (Ipratropium [place] Praveen 0.03 % 30 Ml [place]) 2 spray NOSTRIL-B TID PRN PRN Reason: Allergy Symptoms Lamotrigine (Lamotrigine 25 Mg Tablet) 25 mg PO BID@1100,2200 [facility] Last Admin: 10/14/21 20:29 Dose: 25 mg Documented by: KIERAN Levalbuterol HCl (Levalbuterol Hcl 1.25 Mg/0.5 Ml Vial.Neb) 1.25 mg INHALE Q8H PRN PRN Reason: Wheezing Levetiracetam (Levetiracetam Oral Soln 500 Mg/5 Ml) 200 mg PO DAILY [facility] Last Admin: 10/15/21 10:05 Dose: 200 mg Documented by: TOÑITO Levetiracetam (Levetiracetam Oral Soln 500 Mg/5 Ml) 1,350 mg PO BEDTIME [facility] Last Admin: 10/14/21 20:29 Dose: 1,350 mg Documented by: KIERAN Levetiracetam (Levetiracetam Oral Soln 500 Mg/5 Ml) 50 mg PO DAILY@0400 [facility] Last Admin: 10/15/21 05:07 Dose: 50 mg Documented by: EDISON Levetiracetam (Levetiracetam Oral Soln 500 Mg/5 Ml) 50 mg PO Q24H PRN PRN Reason: Seizures Levothyroxine Sodium (Levothyroxine Sodium 88 Mcg Tablet) 88 mcg PO DAILY@1030 [facility] Last Admin: 10/14/21 10:07 Dose: 88 mcg Documented by: NADIA Non-Formulary Medication (Lacosamide [Vimpat]) 95 mg PO BEDTIME [facility] Last Admin: 10/14/21 20:29 Dose: 95 mg Documented by: KIERAN Omeprazole (Omeprazole 20 Mg/10 Ml Susp.Recon) 2.5 mg PO DAILY [facility] Last Admin: 10/15/21 10:07 Dose: 2.5 mg Documented by: TOÑITO Pharmacy Consult (Consult Rx Perform Med Rec) 1 each MISCELLANE ONCE PRN PRN Reason: Consult order Polyethylene Glycol (Polyethylene Glycol 3350 17 Gm Powd.Pack) 17 gm PO DAILY PRN PRN Reason: contipation Psyllium Hydrophilic Mucilloid (Psyllium Seed 3.4 Gm Powd.Pack) 3.4 gm PO DAILY [facility] Sodium Chloride (0.9 % Sodium Chloride Flush 3 Ml Syringe) 3 ml IVFLUSH QSHIFT [facility] Last Admin: 10/15/21 07:38 Dose: 3 ml Documented by: TOÑITO Zinc Oxide (Zinc Oxide 20% Ointment 28.35 Gm Tube) 1 appl TOPICAL DAILY [facility]; Protocol Labs CBC & Chem 7: 10/12/21 06:23 10/14/21 05:44 Microbiology Microbiology Results: Microbiology 10/10/21 04:48 Blood Culture - Final Blood - Venous No growth after 5 days. 10/10/21 04:48 Blood Culture - Final Blood - Venous No growth after 5 days. 10/09/21 11:37 Blood Culture - Final Blood - Venous No growth after 5 days. 10/09/21 11:52 Blood Culture - Final Blood - Venous No growth after 5 days. Assessment and Plan (1) Aspiration pneumonia: Status: Acute (2) Dysphagia causing pulmonary aspiration with swallowing: Status: Acute (3) Down syndrome: Status: Acute Plan hospital d#7 for 61yo F with T21 presenting with fevers + cough, admitted for aspiration PNA # aspiration PNA - d#7/ levofloxacin + metronidazole - suctioning, nebs - TIN CAN FEEDER: NDD1 solids/honey-thick liquids - pulm following # acute hypoxic resp failure - wean O2 as tolerated, home O2 evaluation # complex partial seizures - continue lacosamide, lamotrigine, levetiracetam # mood disorder # cognitive impairment - continue donepezil, clonazepam # hypothyroid - conitnue LT4 # GERD - PPI # VTE ppx - LMWH In my clinical judgment, the patient requires continued hospitalization for the following reasons: IV ABX, suppl O2, aspiration risk Quality Stroke Does the patient have a stroke diagnosis?: No VTE Prior VTE?: No VTE Risk Level:: Medical - moderate - high VTE Device Contraindication: Treatment Not Indicated VTE Drug Contraindication: N/A - Med Ordered
[2021-10-15] MEDS: Levothyroxine Sodium 88 MCG TABLET PO (10:58)
[2021-10-15] MEDS: Zinc Oxide 20% Ointment 28.35 GM TUBE 1 APPL TOPICAL (10:59)
[2021-10-15] MEDS: lamoTRIgine 25 MG TABLET PO ×2 (11:00→20:24)
--- NOTE | 2021-10-15 11:05 | MHC.CLN ---
F/U REVIEW OF SKIN INTEGRITY DOCUMENTATION. LEFT UPPER LEG WITH FOAM DRESSING. TINY ABRASION NOTED. PATIENT WITH VARIABLE INTAKE, MOST MEALS SHOWING GOOD INTAKE. NO ADDITIONAL NUTRITION INTERVENTIONS.
[2021-10-15] MEDS: levoFLOXacin/D5W 500 MG/100 ML PIGGYBACK 100 MG IV (13:36)
--- NOTE | 2021-10-15 15:12 | PC.NURSE ---
pt's sister requested prn Keppra for seizure activity. No seizure activity witnessed by staff or this RN. Also requested enema for bowels secondary to pt not awake much of day to take prn miralax. Dr Goff notified.
[2021-10-15] MEDS: Albuterol/Iprat 2.5/0.5MG 3 ML AMPUL.NEB INHALE ×2 (15:50→20:47)
--- NOTE | 2021-10-15 15:55 | MHC.CM.PN ---
PER HOSPITALIST PT HAS HAD BREAKTHROUGH SEIZURE AND REMAINS ON O2, PLAN WILL BE FOR HOME O2 EVAL IF PT DOES NOT TOLERATE BEING ON ROOM AIR, PT WILL NEED BLS TRANSPORT HOME, CM WILL CONT TO FOLLOW D/C NEEDS.
[2021-10-15] MEDS: Sodium Phosphate,Mono-Dibasic 133 ML ENEMA PR (16:16)
--- NOTE | 2021-10-15 17:09 | MHC.SL.SWA ---
Speech Pathologist Impression: Oropharyngeal dysphagia Dysphasia Diet Status: Recommend continue speech therapy after discharge through [facility]. Liquid Consistency and Strategies for Safe Swallow: Liquid Intake Recommendation: Honey Thick Liquid Intake Strategies: Small Sips Solid Food Consistency: Dietary Recommendations: Pureed (NDD1) Additional Modifications to Solid Foods: Per sister, patient gets liquids via syringe. Patient is fed with 1:1 assistance, consistent cuing. Strict aspiration precautions apply. Oral Medication Intake: Crushed with Puree Please contact the pharmacy regarding appropriate crushable or liquid drug formulations that are available whenever modified delivery is recommended. Compensatory Strategies and Precautions to be Taken for Safe Swallow: Sitting Upright (90 deg) Small Bites and Sips Rate of Ingestion Change Oral Check Supervision While Eating and Drinking for Safe Swallow: Total Assistance (1:1) Foods to Avoid: Swallowing Recommended Treatments: Compens. Strategy Educat. Recommendation for Speech: Inpatient Speech Therapy Speech Therapy through [facility] Comment: Patient is a 61 year old female with down syndrome. She lives with her sister and her sister's . Patient has history of aspiration and is on a modified diet. Per sister, patient is on mostly pureed food at home, thickened liquids given by SYRINGE, her pills are crushed or in liquid form. Patient must be awake and alert for PO intake. May need to hold tray depending on mental status, lethargy. Recommend continue baseline PUREED solids (NDD1), HONEY THICK liquids, and pills CRUSHED in PUREE or liquid form when available. Patient requires TOTAL assistance feeding. 1/2 teaspoon bites of pureed food at a time. Patient swallows 2-3 times per bite. Ensure oral cavity is cleared before giving more bites. Liquids administered by syringe. Provide cues as needed for upright position throughout meals. Aspiration precautions apply. [ End ] Frequency/Duration: M-F while inpatient Date Range for Service Req: Timeline to reassess: Server Support Technician Clinican/Clinical Fellow: No Supervisory Statement: I have reviewed and agree with the student/clinical fellow's documentation: N/A Speech Language Pathologist: Dayana Yu M.A., CCC-DEMOLITION WORKER
[2021-10-15] MEDS: Enoxaparin Sodium 40 MG/0.4 ML SYRINGE SUBCUT (18:03)
--- NOTE | 2021-10-15 18:28 | PC.NURSE ---
1630 Fleet enema given with good results
[2021-10-15] MEDS: Acetaminophen 325 MG TABLET 650 MG PO (20:14)
[2021-10-15] MEDS: levETIRAcetam Oral Soln 500 MG/5 ML 1350 MG PO (20:19)
[2021-10-15] MEDS: Donepezil HCl 5 MG TABLET PO (20:24)
[2021-10-16] VITALS: BP 100/51; PULSE 77; RESP 16; TEMP 36.7; O2SAT 99
[2021-10-16 04:00] VITALS: BP 110/58; PULSE 70; RESP 16; TEMP 37; O2SAT 97
[2021-10-16] MEDS: levETIRAcetam Oral Soln 500 MG/5 ML 50 MG PO ×2 (05:02→11:54)
--- NOTE | 2021-10-16 06:56 | PC.NURSE ---
patients sister refused for her to get washed this am
[2021-10-16 08:00] VITALS: BP 124/58; PULSE 75; RESP 18; TEMP 36.9; O2SAT 97
[2021-10-16] MEDS: levETIRAcetam Oral Soln 500 MG/5 ML 200 MG PO (08:50)
[2021-10-16] MEDS: 0.9 % Sodium Chloride Flush 3 ML SYRINGE IVFLUSH (08:50)
[2021-10-16] MEDS: Zinc Oxide 20% Ointment 28.35 GM TUBE 1 APPL TOPICAL (08:50)
[2021-10-16] MEDS: Levothyroxine Sodium 88 MCG TABLET PO (08:58)
[2021-10-16] MEDS: lamoTRIgine 25 MG TABLET PO (08:58)
[2021-10-16] MEDS: Albuterol/Iprat 2.5/0.5MG 3 ML AMPUL.NEB INHALE (09:25)
[2021-10-16 09:40] VITALS: PULSE 73; RESP 20; O2SAT 98
--- NOTE | 2021-10-16 11:38 | P.F2F_ITS ---
Service Date Service Date: 10/16/21 Encounter Date of encounter: 10/16/21 Reasons for Services Signs and symptoms assessed: swallowing deconditioning Reason for physical therapy: home safety and mobility, therapeutic exercises, gait/transfer training, assess need for DME, ADL training and energy conservation Reason for speech therapy: swallowing impairment, speech impairment and cognitive impairment MD Overseeing Care: Ramesh Stratton Homebound: Leaving the home is medically contraindicated at this time without the asist of a device and/or another person due th the listed conditions above and below. Reason homebound: unsteady gait / fall risk, shortness of breath with minimal effort, cognitively impaired / unsafe and weakness related to hospital stay Certification: Based on the above findings, I certify that this patient is confined to the home and needs intermittent m[facility]p care, physical therapy and/or speech therapy, or continues to need occupational therapy. The patient is under my care, and I have initiated the establishment of the plan of care. The patient will be followed by a physician who will periodically review the plan of care.
--- NOTE | 2021-10-16 11:46 | P.DS_ITS ---
DS: Providers Provider Date of Service: 10/16/21 Date of admission: 10/09/21 14:43 Date of discharge: 10/16/21 Primary care physician: Ramesh Stratton MD Consults: 10/11/21 10:11 Consult to Pulmonology Routine Consulting Provider: Sommer Whitlock Reason for consultation: Aspiration pneumonia Has provider been notified: No 10/14/21 14:03 Consult to Neurology Routine Consulting Provider: [facility] Reason for consultation: seizure disorder , Down's syndrome DS: Diagnosis Discharge Diagnosis (1) Aspiration pneumonia: Status: Acute (2) Dysphagia causing pulmonary aspiration with swallowing: Status: Acute (3) Acute respiratory failure with hypoxia: Status: Acute DS: Summary Hospital Course Hospital Course: from admission H+P by hospitalist Louie Casiano DO, 10/09/21: 61-year-old female with known history of Down's syndrome and chronic aspiration presents today to the emergency room after an episode of coughing which she likely aspirated.? Family noticed a fever to 101 at home along with a very congested cough.? In the emergency room, chest x-ray consistent with aspiration pneumonia. This 61yo F with Trisomy 21 presenting with fevers + cough was admitted for hypoxia due to aspiration PNA. She was treated with 7 days of levofloxacin plus metronidazole. She was seen by [facility] and Pulmonology and placed on NDD1/pureed solids and honey-thick liquids. She was gradually weaned off oxygen. She was discharged home with [facility] services for PT and [facility] and will need to follow up with Pulmonology and Primary Care. Time Spent with Patient Time attestation: Total time spent providing and/or coordinating discharge services: Discharge coordination time: Greater than 30 minutes Quality: Safe Use of Opioids Does Pt have an Active Cancer Diagnosis on the Problem List?: No Quality: Stroke Does the patient have a stroke diagnosis?: No Physical Exam Vital Signs: Vital Signs: Last Vital Signs Temp 98.4 F 10/16/21 08:00 Pulse 73 10/16/21 09:40 Resp 20 10/16/21 09:40 BP 124/58 L 10/16/21 08:00 Pulse Ox 97 10/16/21 08:00 Oxygen Flow Rate 2 10/09/21 14:44 BMI result Body Mass Index 30.7 Gen: in no acute distress HEENT: Downs facies, sclera anicteric, moist mucus membranes Neck: supple Lungs: CTAB Heart: regular rate and rhythm, no murmurs Abd: soft, non-tender, non-distended Ext: no edema Skin: warm/well-perfused Neuro: alert, nonverbal Psych: impaired insight DS: Data Data Completed and Pending Completed studies during hospitalization [Text1]: Laboratory Results WBC 5.6 X10*3/uL (4.8-10.8) 10/12/21 06:23 RBC 3.47 X10*6/uL (4.20-5.50) L 10/12/21 06:23 Hgb 11.5 g/dl (12.0-16.0) L 10/12/21 06:23 Hct 35.2 % (37.0-47.0) L 10/12/21 06:23 MCV 101.4 fL (80.0-98.0) H 10/12/21 06:23 MCH 33.1 pg (27.0-33.0) H 10/12/21 06:23 MCHC 32.7 g/dl (31.0-35.0) 10/12/21 06:23 RDW 13.4 % (11.0-16.0) 10/12/21 06:23 Plt Count 206 X10*3/uL (160-400) 10/12/21 06:23 MPV 10.6 fL (9.4-12.3) 10/12/21 06:23 Immature Gran % (Auto) 3.2 % (0.0-0.4) H 10/12/21 06:23 Neut % (Auto) 58.1 % (45-73) 10/12/21 06:23 Lymph % (Auto) 25.7 % (20-40) 10/12/21 06:23 [place] % (Auto) 9.9 % (2-11) 10/12/21 06:23 Eos % (Auto) 2.0 % (0-4) 10/12/21 06:23 Baso % (Auto) 1.1 % (0-2) 10/12/21 06:23 Lymph # (Auto) 1.4 X10*3/uL (1.2-4.9) 10/12/21 06:23 [place] # (Auto) 0.6 X10*3/uL (0.1-1.2) 10/12/21 06:23 Eos # (Auto) 0.1 X10*3/uL (0.0-0.4) 10/12/21 06:23 Baso # (Auto) 0.1 X10*3/uL (0.0-0.2) 10/12/21 06:23 Abs Immat Gran (auto) 0.18 X10*3/uL (0.00-0.03) H 10/12/21 06:23 Absolute Neuts (auto) 3.2 x10*3/uL (2.0-8.3) 10/12/21 06:23 Absolute Nucleated RBC 0.000 X10*3/uL (0.0-0.012) 10/12/21 06: Nucleated RBC % (auto) 0.0 /100WBC (0.0-0.2) 10/12/21 06:23 VBG pH 7.44 (7.32-7.43) H 10/10/21 04:50 VBG pCO2 35 mmHg 10/10/21 04:50 VBG pO2 60 mmHg 10/10/21 04:50 VBG HCO3 24 mmol/L (22-26) 10/10/21 04:50 VBG O2 Saturation 89.0 % 10/10/21 04:50 VBG Base Excess 1.2 mmol/L 10/10/21 04:50 Sodium 144 mmol/L (135-145) 10/14/21 05:44 Potassium 4.1 mmol/L (3.3-5.1) 10/14/21 05:44 Chloride 108 mmol/L (96-108) 10/14/21 05:44 Carbon Dioxide 26 mmol/L (22-29) 10/14/21 05:44 Anion Gap 14 (12-20) 10/14/21 05:44 BUN 12 mg/dL (9-16) 10/14/21 05:44 Creatinine 0.72 mg/dL (0.5-1.4) 10/14/21 05:44 Estim Creat Clear Calc 66.3 10/14/21 05:44 Estimated GFR > 60 10/14/21 05:44 Random Glucose 97 mg/dL (60-115) 10/14/21 05:44 Fasting Glucose 109 mg/dL (60-99) H 10/12/21 06:23 Lactic Acid 0.8 mmol/L (0.5-2.0) 10/10/21 04:48 Calcium 8.8 mg/dL (8.4-10.2) 10/14/21 05:44 Total Bilirubin 0.2 mg/dL (0.0-1.0) 10/12/21 06:23 AST 10 U/L (5-31) 10/12/21 06:23 ALT 10 U/L (0-31) 10/12/21 06:23 Alkaline Phosphatase 94 U/L (39-117) 10/12/21 06:23 B-Natriuretic Peptide 69 pg/mL (<100) 10/09/21 11:53 Total Protein 5.7 g/dL (6.5-8.0) L 10/12/21 06:23 Albumin 3.0 g/dL (3.5-5.0) L 10/12/21 06:23 Procalcitonin 0.03 ng/mL 10/14/21 05:44 Urine Color YELLOW 10/09/21 13:47 Urine Appearance HAZY 10/09/21 13:47 Urine pH 6.5 (5.0-8.0) 10/09/21 13:47 Ur Specific [place] 1.015 (1.005-1.025) 10/09/21 13:47 Urine Protein TRACE MG/DL (NEG-TRACE) 10/09/21 13:47 Urine Glucose (UA) NEG MG/DL (NEG) 10/09/21 13:47 Urine Ketones NEG MG/DL (NEG) 10/09/21 13:47 Urine Blood NEG (NEG) 10/09/21 13:47 Urine Nitrite POS (NEG) H 10/09/21 13:47 Ur Leukocyte Esterase NEG (NEG) 10/09/21 13:47 Urine RBC 0 /HPF (0) 10/09/21 13:47 Urine WBC 15-29 /HPF (0-4) H 10/09/21 13:47 Ur Squamous Epith Cells TRACE /LPF 10/09/21 13:47 Urine Bacteria 4+ /LPF 10/09/21 13:47 Influenza Type A (PCR) NEGATIVE (Negative) 10/09/21 11:53 Influenza Type B (PCR) NEGATIVE (Negative) 10/09/21 11:53 RSV RNA Qual (PCR) NEGATIVE (Negative) 10/09/21 11:53 SARS-CoV-2 RNA (RT-PCR) NEGATIVE (Negative) 10/09/21 11:[address] 10/10/21 05:30 IMPRESSION: No acute intracranial pathology. Volume loss and ventricular dilation, increased since 02/28/2019. Chest X-Ray 10/10/21 05:37 IMPRESSION: Redemonstrated findings suggesting vascular congestion and mild edema, similar to 10/09/2021. Discharge Plan Discharge Patient Disposition: Home Health Service Discharge Diagnosis: acute hypoxic respiratory failure due to aspiration pneumonia Referrals: Sommer Whitlock MD [Physician] - 1 Week Ramesh Stratton MD [Primary Care Provider] - 1 Week Discharge Medications: New polyethylene glycol 3350 17 gram Powder In Packet 17 g PO DAILY PRN (Reason: contipation) Qty: 30 0RF Metamucil Fiber Singles 3.4 gram Powder In Packet 3.4 g PO DAILY Qty: 30 0RF Continued levetiracetam [Keppra] 100 mg/mL Solution 200 mg DAILY 0RF Rx Instructions: Give in morning levetiracetam [Keppra] 100 mg/mL Solution 1,350 mg PO BEDTIME 0RF lacosamide [Vimpat] 10 mg/mL Solution 95 mg PO BEDTIME 0RF levetiracetam 100 mg/mL solution 50 mg PO DAILY@0400 0RF levalbuterol HCl 1.25 mg/3 mL solution for nebulization 1.25 mg inhalation Q8H PRN (Reason: Wheezing) 0RF omeprazole magnesium 2.5 mg Susp,Delayed Release For Recon 2.5 mg PO DAILY 0RF nystatin 100,000 unit/gram Cream 1 appl TOPICAL TID PRN (Reason: Rash) 0RF clonazepam 0.25 mg Tablet,Disintegrating 0.25 mg PO DAILY PRN (Reason: Seizures) 0RF acetaminophen 325 mg Tablet 650 mg PO BEDTIME 0RF levothyroxine 88 mcg tablet 88 mcg PO DAILY@1030 0RF donepezil 5 mg tablet,disintegrating 5 mg PO DAILY@2200 0RF lamotrigine 25 mg tablet, chewable dispersible 25 mg PO BID@1100,2200 0RF ipratropium bromide 21 mcg (0.03 %) spray,non-aerosol 2 spray intranasal TID PRN (Reason: Allergy Symptoms) 0RF Discharge Orders: Discharge Order (Routine); Ordered 10/16/21 Ordered By: Prashant Goff Diet: advance to usual diet Activity on Discharge: As tolerated Stand Alone Forms: Patient Portal Discharge page Activity Restrictions/Additional Instructions: Pureed solids Honey-thick liquids Home speech therapy and physical therapy Care Plan Goals: healing from pneumonia prevention of aspiration Health Concerns: acute hypoxic respiratory failure due to aspiration pneumonia Plan of Treatment: Pureed solids Honey-thick liquids Home speech therapy and physical therapy Assessment: See Discharge Summary Patient Instructions: Level 1 National Dysphagia Diet (DC), Aspiration Precautions (DC)
[2021-10-16 12:00] VITALS: BP 117/59; PULSE 77; RESP 18; TEMP 37; O2SAT 96
--- NOTE | 2021-10-16 14:00 | PC.NURSE ---
Lamotrigine and Levothyroxine given with morning medications okayed by Dr. Goff.
[2021-10-16 16:00] VITALS: BP 119/58; PULSE 61; RESP 18; TEMP 36.1; O2SAT 96
== END 2021-10-16 17:15 | disposition home health service (06) | DRG 177 ==
LOC: HO.ED 14:01 → HO.EDOVER 14:52 → HO.S3 16:24
PROVIDERS: Internal Medicine; Admitting Provider Hospitalist; Emergency Provider Emergency Medicine Emergency Medical Services; PCP Internal Medicine; Visit Provider Family Medicine
DX: J69.0 Pneumonitis due to inhalation of food and vomit (principal); J96.01 Acute respiratory failure with hypoxia; G40.909 Epilepsy, unspecified, not intractable, without status epilepticus; G47.33 Obstructive sleep apnea (adult) (pediatric); E03.9 Hypothyroidism, unspecified; F39 Unspecified mood [affective] disorder; F03.90 Unspecified dementia, unspecified severity, without behavioral disturbance, psychotic disturbance, mood disturbance, and anxiety; Q90.9 Down syndrome, unspecified; Z20.822 Contact with and (suspected) exposure to COVID-19; Z88.0 Allergy status to penicillin; Z88.5 Allergy status to narcotic agent; Z88.8 Allergy status to other drugs, medicaments and biological substances; Z79.890 Hormone replacement therapy; Z79.899 Other long term (current) drug therapy
CPT/HCPCS: 0241U; 36415; 70450; 71045; 80048; 80053; 81001; 82803; 83605; 83880; 84145; 85025; 87040; 87086; 87088; 87186; 92526; 92610; 96365; 96375; 99285; J1650; J1956

== ENCOUNTER → 2021-10-26 16:24 | Outpatient (BNVA) | payer MEDICARE, MEDICAID, SELFPAY | PROVIDERS: PCP Internal Medicine; Visit Provider Internal Medicine | DX: R06.03 Acute respiratory distress (principal); T17.908A Unspecified foreign body in respiratory tract, part unspecified causing other injury, initial encounter; R13.10 Dysphagia, unspecified; F03.90 Unspecified dementia, unspecified severity, without behavioral disturbance, psychotic disturbance, mood disturbance, and anxiety; Q90.9 Down syndrome, unspecified | CPT/HCPCS: 99212 ==

== ENCOUNTER 2021-11-02 17:10 | Outpatient (REF) | payer MEDICARE, MEDICAID, SELFPAY ==
[2021-11-02 17:36] LABS: Appearance Urine CLEAR; Color Urine DK YELLOW; Glucose Urine UA NEG (NEG); Leukocyte Esterase Urine NEG (NEG); Nitrite Urine NEG (NEG); PH 5.5 (5.0-8.0); Specific Gravity - Urine >= 1.030 (1.005-1.025); Urine Blood NEG (NEG); Urine Ketones NEG (NEG); Urine Protein TRACE MG/DL (NEG-TRACE)
== END 2021-11-02 17:11 | disposition home or self-care (01) ==
LOC: HO.HVNA 17:10
PROVIDERS: Visit Provider Internal Medicine
DX: N39.0 Urinary tract infection, site not specified (principal)
CPT/HCPCS: 81003; 87086

== ENCOUNTER 2022-02-25 19:01 | Inpatient (IN) | payer MEDICARE, MEDICAID, SELFPAY ==
--- NOTE | ~2022-02-25 | XR_ITS ---
EXAMINATION: XR CHEST CLINICAL INFORMATION: Increasing O2 requirements COMPARISON: 02/25/2022 TECHNIQUE: Frontal view of the chest was obtained. FINDINGS: Perihilar alveolar opacities are increased as compared to prior, most notably at the right lung base. Subtle interstitial opacities are also noted. No pneumothorax or pleural effusion. Cardiac silhouette is at the upper limits of normal in size. No acute osseous findings. Osteoarthritis is present in the acromioclavicular and glenohumeral joints. XR/XR chest 1V IMPRESSION: Worsening multifocal parahilar airspace and interstitial opacities as can be seen with pulmonary edema or multifocal pneumonia.
--- NOTE | ~2022-02-25 | CT_ITS ---
EXAMINATION: CT ANGIOGRAM OF THE CHEST WITH AND WITHOUT CONTRAST (CT PULMONARY ANGIOGRAM FOR PE) CT ABDOMEN AND PELVIS WITH CONTRAST CLINICAL INFORMATION: Reason for Exam + dimer sob COMPARISON: Chest CT 01/10/2020 TECHNIQUE: Prior to contrast administration, noncontrast localization images were obtained. Subsequently, multidetector volumetric imaging was performed from the thoracic inlet to the pubic symphysis following the administration of 85 mL Omnipaque 350 intravenous contrast. This was followed by multidetector acquisition of the abdomen and pelvis. No contrast reaction reported Sagittal, coronal, and MIP oblique sagittal reformatted images were obtained on the CT workstation, uploaded to PACS, and reviewed. This CT examination was performed using dose optimization techniques as appropriate, variously including the following: *Automated exposure control *Adjustment of mA and/or kV according to patient size (this includes techniques or standardized protocols for targeted exams where dose is matched to indication/reason for exam; i.e. extremities or head) *Use of iterative reconstruction technique Total exam dose-length product 959 mGy-cm FINDINGS: CHEST: Quality of study/contrast bolus: Suboptimal. Pulmonary arteries: No central pulmonary vessel. Assessment for segmental emboli is nondiagnostic due to extensive respiratory motion artifact. Thoracic aorta: No aneurysm or dissection. 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 Variant direct origin of the left vertebral artery from the aortic arch also seen. Lungs: Limited assessment due to extensive motion artifact. There is extensive bilateral groundglass airspace opacities and consolidative opacity in the right lower lobe. No obvious/large pulmonary nodule or mass. No pneumothorax. Airways:Central airways grossly clear. Pleura and pericardium: No pleural or pericardial effusions. Heart and vascular structures: No cardiomegaly. No thoracic aortic aneurysm. Normal caliber central pulmonary trunk. Lymph nodes: No mediastinal, hilar, or axillary lymphadenopathy. Chest Wall: No chest wall mass. ABDOMEN/PELVIS: Liver: Normal size and attenuation. No liver lesions. Gallbladder and bile ducts:No calcified gallstones, mural thickening, or pericholecystic fluid/inflammatory change. No biliary ductal dilation. Pancreas: No pancreatic lesion, ductal dilation, or peripancreatic inflammatory change. Spleen: Normal size. No splenic lesion. Adrenal Glands: Unremarkable. Kidneys and Ureters: Symmetric nephrograms. No hydronephrosis. No renal cyst or mass identified. Vasculature:Mildly tortuous abdominal aorta. No abdominal aortic aneurysm. Mild common iliac artery vascular calcifications. Lymph nodes:No lymphadenopathy Gastrointestinal Tract: No dilated bowel loops or bowel wall thickening. The appendix is not seen. There is no pericecal inflammation to suggest acute appendicitis. Peritoneum:No ascites or intra-abdominal free air. Abdominal wall:No hernia. Bladder: Unremarkable. Pelvic Viscera: Unremarkable. Bones: No acute fracture or suspicious osseous lesion. Mild superior endplate compression deformities of T3-T6, chronic in appearance and unchanged. Multilevel degenerative disc disease throughout the thoracolumbar spine. Deformity of the left femoral neck compatible with prior impacted subcapital femoral neck fracture. Correlate clinically. CT/CT abdomen pelvis w IV con IMPRESSION: 1. No central pulmonary embolus. Assessment for segmental pulmonary emboli is nondiagnostic due to extensive motion artifact. 2. Extensive bilateral airspace groundglass airspace opacities in a consolidative opacity in the right lower lobe suspicious for pneumonia. Correlate clinically. 3. No colonic wall thickening or pericolonic inflammatory change to suggest the acute colitis. VTE: indeterminate
--- NOTE | ~2022-02-25 | US_ITS ---
EXAMINATION: US VENOUS ULTRASOUND WITH DOPPLER LOWER EXTREMITY, BILATERAL CLINICAL INFORMATION: Redness and swelling COMPARISON: None TECHNIQUE: Ultrasound of the deep veins is performed from the hip to the calf with compression sonography and color and pulse Doppler assessment. Spectral analysis with color-flow imaging is performed. FINDINGS: RIGHT: There is normal venous compression and respiratory variation and augmented flow. The visualized common femoral vein, superficial femoral vein, profunda femoral vein, popliteal vein, and the trifurcation region shows no evidence of deep venous thrombosis. There is no significant popliteal fossa cyst. LEFT: There is normal venous compression and respiratory variation and augmented flow. The visualized common femoral vein, superficial femoral vein, profunda femoral vein, popliteal vein. The trifurcation is less well seen via the lens blank gauger peroneal veins are not visualized. There is no significant popliteal fossa cyst. If the patient's symptoms persist, followup ultrasound in 5 days 7 days might be of value to exclude proximal propagation from a non-visualized calf vein. US/US venous duplex LE BI IMPRESSION: No DVT demonstrated in the bilateral lower extremity. With some limitation. As described peroneal veins on the left are not visualized in the calf
--- NOTE | ~2022-02-25 | IR_ITS ---
PROCEDURE: IR INSERTION OF PICC CLINICAL INFORMATION: Pneumonia. COMPARISON: None TECHNIQUE: Saldivar catheter procedure and risks and benefits including bleeding, infection and pneumothorax were discussed with the patient's healthcare proxy, her sister and informed consent was obtained. Subsequently, the patient's coagulation studies came back significantly elevated and due to increased risk of bleeding with tunnelled catheter, a decision was made to place a right upper extremity PICC line catheter instead. This was communicated to the patient's sister by the interventional radiology nurse. All elements of maximal sterile barrier technique followed including use of cap, mask, sterile gown, sterile gloves, a sterile full body drape and hand hygiene. Also followed skin preparation with 2% chlorhexidine for cutaneous antisepsis, and sterile ultrasound preparation with sterile gel and probe cover when applicable. The right upper arm was prepped and draped in the usual sterile fashion. The skin and soft tissues were anesthetized with 1% lidocaine plain. Using ultrasound guidance and a 5 Ethiopian micropuncture system, right internal jugular vein access was obtained. Over a 0.018 guidewire, a 5 Ethiopian dilator was positioned in the right basilic vein. Over a 0.018 wire, a 4 Ethiopian single lumen PICC line was positioned. Catheter tip is in the right subclavian vein. Catheter length is 27 cm. Catheter had good blood return, flushed easily and was flushed with saline. Fluoroscopy time 0.5 minutes. Patient dose 1.52 cGy-cm2. FINDINGS: There is a right upper extremity PICC line with tip projecting over the right subclavian vein. IR/IR cvc insert peripheral IMPRESSION: Right upper extremity PICC line placement.
--- NOTE | ~2022-02-25 | XR_ITS ---
EXAMINATION: XR CHEST CLINICAL INFORMATION: Upper respiratory infection COMPARISON: Chest radiograph 10/10/[address] chest 01/10/2020 TECHNIQUE: Frontal view of the chest was obtained. FINDINGS: Heart size normal. No gross evidence of CHF. There is areas of patchy ill-defined density seen in the right mid and lower lung. Similar but much less marked changes present no pleural effusions. No discrete lung masses. XR/XR chest 1V IMPRESSION: New right lung infiltrate, I suspect right lower lobe.
[2022-02-25 19:09] VITALS: BP 100/70; PULSE 86; O2SAT 92
[2022-02-25 19:29] VITALS: BP 79/54; PULSE 102; RESP 16; TEMP 38.1; O2SAT 95; BMI 30.3
--- NOTE | 2022-02-25 19:52 | ECG_ITS ---
Test Reason : FAILURE TO SRIVE Blood Pressure : / mmHG Vent. Rate : 103 BPM Atrial Rate : 103 BPM P-R Int : 168 ms QRS Dur : 076 ms QT Int : 346 ms P-R-T Axes : 055 041 039 degrees QTc Int : 453 ms Poor data quality, interpretation may be adversely affected Sinus tachycardia Otherwise normal ECG When compared with ECG of 14-AUG-2019 21:46, No significant change was found Referred By: Brad Valdes Electronically Signed By:CHRISTOPHER HARRISON
--- NOTE | 2022-02-25 20:03 | ED.WEAKNESS ---
HPI - Weakness General Chief complaint: Failure to Thrive Stated complaint: failure to thrive u resp infection Time Seen by Provider: 02/25/22 19:51 Source: family, EMS and RN notes reviewed Mode of arrival: EMS Limitations: other (patient unable to provide history) History of Present Illness HPI Narrative: 61-year-old female with a PMHx of down syndrome, dementia, seizures, who presents to the ED with generalized weakness, diarrhea, cough, and decreased PO intake. Patient's family member reports of for the past 4 days the patient has been dealing with a upper respiratory illness, has had a productive cough and congestion. Went to her PCP yesterday and was given doxycycline review another antibiotic to treat. Caregiver reports diarrhea started after antibiotics.After taking these antibiotics the patient has had persistent diarrhea. Today, the patient has had altered mental status and extremely weak. The patient is able to get out of bed with assistance at baseline and is typically communicative, however, her caregiver says that for the past she has not been able to and has not been as communicative as normal. Caregiver also reports poor PO intake. Unable to obtain an accurate ROS, hx obtained from caregiver. Related Data Home Medications Medication Instructions Recorded Confirmed donepezil 5 mg disintegrating 5 mg PO DAILY@219910/21/20 02/25/22 tablet ipratropium bromide 21 mcg (0.03 2 spray intranasal BEDTIME 10/21/20 02/25/22 %) nasal spray levothyroxine 88 mcg tablet 88 mcg PO DAILY@1030 10/21/20 02/25/22 lacosamide 10 mg/mL oral solution 100 mg PO BEDTIME@202910/09/21 02/25/22 (Vimpat) levalbuterol HCl 1.25 mg/3 mL 1.25 mg inhalation Q8H PRN Wheezing 10/09/21 02/25/22 solution for nebulization levetiracetam 100 mg/mL oral 1,350 mg PO BEDTIME@202910/09/21 02/25/22 solution (Keppra) levetiracetam 100 mg/mL oral 200 mg DAILY@0910/09/21 02/25/22 solution (Keppra) omeprazole magnesium 2.5 mg oral 2.5 mg PO DAILY 10/09/21 02/25/22 suspension,delayed release acetaminophen 325 mg tablet 650 mg PO BEDTIME 02/25/22 02/25/22 (Tylenol) dextromethorphan-guaifenesin 5 10 ml PO Q4H PRN Cough 02/25/22 02/25/22 mg-100 mg/5 mL oral liquid (Mucinex Fast-Max DM Max) lamotrigine 25 mg chewable 25 mg PO BID 02/25/22 02/25/22 dispersible tablet levetiracetam 100 mg/mL oral 50 mg PO DAILY PRN Seizure Activity 02/25/22 02/25/22 solution levetiracetam 100 mg/mL oral 50 mg PO DAILY@0400 02/25/22 02/25/22 solution lidocaine HCl 4 % topical cream 1 appl topical QID PRN Pain 02/25/22 02/25/22 (Aspercreme (lidocaine HCl)) midazolam 5 mg/spray (0.1 mL) 5 mg intranasal DAILY PRN Seizure 02/25/22 02/25/22 nasal spray (Nayzilam) Activity nystatin 100,000 unit/gram topical 1 appl topical TID 02/25/22 02/25/22 cream polyethylene glycol 3350 17 gram 17 g PO DAILY 02/25/22 02/25/22 oral powder packet (Miralax) Previous Rx's Medication Instructions Recorded doxycycline hyclate 100 mg capsule 100 mg PO BID #20 caps 02/24/22 Allergies Allergy/AdvReac Type Severity Reaction Status Date / Time fentanyl [FENTANYL] Allergy Intermediate UNKNOWN Verified 10/26/21 17:17 codeine [CODEINE] Allergy Unknown UNKNOWN Verified 10/26/21 17:17 lorazepam [From ATIVAN] Allergy Unknown UNKNOWN Verified 10/26/21 17:17 oxcarbazepine [OXCARBAZEPINE] Allergy Unknown UNKNOWN Verified 10/26/21 17:17 penicillin V Allergy Unknown Unknown Verified 10/26/21 17:17 Penicillins [PENICILLINS] Allergy Unknown DIFFICULTY Verified 10/26/21 17:17 BREATHING Sulfa (Sulfonamide Allergy Unknown DIFFICULTY Verified 10/26/21 17:17 Antibiotics) BREATHING [SULFA (SULFONAMIDE ANTIBIOTICS)] levofloxacin [From LEVAQUIN] AdvReac Intermediate hallucinati Verified 10/26/21 17:17 ons phenodol Allergy Unknown Unknown Uncoded 10/26/21 17:17 Review of Systems Review of Systems: Yes Unobtainable due to mental status [facility] Past Medical History Attestation statement: The following information was validated with the patient. Source: old records reviewed and nursing notes reviewed Medical History (Updated 02/25/22 @ 22:48 by OYBANI Sands) Aspiration into airway Aspiration pneumonia Dementia Down syndrome Down syndrome Dysphagia Dysphagia causing pulmonary aspiration with swallowing Epilepsy Hypoxemia LEONIE on CPAP Pneumonia Respiratory distress Toxic metabolic encephalopathy Social History Social History Household Members: Family Housing: Apartment Do you presently have visiting nurse or other home services: Yes Patient Tobacco Use Status: Never used Tobacco Advance Directives: No Advance Directives Information Provided: No service: No Current occupational status: disabled Physical Exam Vital Signs: Vital Signs: Last Vital Signs Temp 99.5 F 02/25/22 21:09 Pulse 94 02/25/22 22:35 Resp 20 02/25/22 22:35 BP 108/40 L 02/25/22 22:35 Pulse Ox 99 02/25/22 22:35 O2 Del Method 02/25/22 22:35 O2 Flow Rate 3 02/25/22 21:30 BMI result Body Mass Index 30.3 Patient noted to be hypotensive, tachycardic, febrile. Sepsis alert called. Appearance: Alert.? Awake, moving all extremities.? No acute distress.?Coughing during my exam. Warm to the touch. Head: Normocephalic, atraumatic, no step-offs or deformities Eyes: Pupils equal, round and reactive to light.? Neck: Normal inspection.? Neck supple.? No meningeal CVS: Normal heart rate and rhythm.? Pulses normal.? Respiratory: No respiratory distress.? Diminished breath sounds throughout. Abdomen: Soft and nontender.?+BS Skin: Skin warm and dry.? Normal skin color.? Normal skin turgor.? Extremities: No lower extremity edema.? No calf ttp. 5/5 strength to bilateral upper and lower extremities Back: No midline tenderness, no C-spine tenderness, full range of motion, no CVA tenderness bilaterally Neuro: Unable to assess patient's mental status fully as she is not communicative at this time.? No motor deficit.? Course Reevaluation(s) Reevaluation #1: Patient noted to be tachycardic, febrile, hypotensive, sepsis alert called at this time. Focused sepsis exam performed at this time. 30 CC/kg fluid bolus started. Time: 20:15 Reevaluation #2: Patient's CBC with elevated leukocytosis, chemistry with no acute electrolyte abnormalities requiring intervention. Troponin negative, EKG nonischemic. X-ray showing a consolidation to the right lower lobe concerning for pneumonia. Urine, CTA of the chest and CTA of the abdomen pending. Will also obtain repeat vitals Time: 21:01 Reevaluation #3: Patient became hypoxic 83% on RA now on nasal canula 3L and doing well 99%. Time: 22:39 Additional Reevaluation(s): No signs of PE on CTA, patient has extensive ground-glass opacities as well as consolidation on CTA. Acute findings in the abdomen. This time patient will be admitted to the hospitalist team for evaluation and further intervention of pneumonia, hypo tension, fever, weakness and altered mental status. accepted. MDM - Weakness MDM Narrative Medical decision making narrative: 1939 61 y/o F with PMHx of down syndrome, seizure, dementia presenting with generalized weakness, decreased p.o. intake, diarrhea, upper respiratory infection. Prescribed doxycycline by PCP. Baseline in able to get up and ambulate and communicate with family members, not doing this today PE remarkable for tired, ill appearing patient. No respiratory distress. Patient noted to be hypotensive to 79/54, febrile to 105F, tachycardic to 102 bpm. Suspected sepsis, sepsis alert called overhead, a sepsis focused exam was done at this time. Plan to obtain basic labs, blood cultures, lactic, CXR, COVID-19. Will start broad spectrum abx, Cefepime at this time, and fluids. Stool studies ordered to r/o Cdiff. Medical Records Attestation: I reviewed the patient's medical records. Lab Data Attestation: I reviewed the patient's lab results. Result diagrams: 02/25/22 20:28 02/25/22 20:28 Labs: Lab Results 02/25/22 02/25/22 02/25/22 Range/Units 20:25 20:28 20:28 WBC 18.7 H (4.8-10.8) X10*3/uL RBC 4.16 L (4.20-5.50) X10*6/uL Hgb 13.5 (12.0-16.0) g/dl Hct 41.7 (37.0-47.0) % MCV 100.2 H (80.0-98.0) fL MCH 32.5 (27.0-33.0) pg MCHC 32.4 (31.0-35.0) g/dl RDW 13.4 (11.0-16.0) % Plt Count 228 (160-400) X10*3/uL MPV 10.0 (9.4-12.3) fL Immature Gran % (Auto) 0.7 H (0.0-0.4) % Neut % (Auto) 86.5 H (45-73) % Lymph % (Auto) 7.2 L (20-40) % Archer % (Auto) 5.1 (2-11) % Eos % (Auto) 0.2 (0-4) % Baso % (Auto) 0.3 (0-2) % Lymph # (Auto) 1.3 (1.2-4.9) X10*3/uL Archer # (Auto) 1.0 (0.1-1.2) X10*3/uL Eos # (Auto) 0.0 (0.0-0.4) X10*3/uL Baso # (Auto) 0.1 (0.0-0.2) X10*3/uL Abs Immat Gran (auto) 0.14 H (0.00-0.03) X10*3/uL Absolute Neuts (auto) 16.2 H (2.0-8.3) x10*3/uL Absolute Nucleated RBC 0.000 (0.0-0.012) X10*3/uL Nucleated RBC % (auto) 0.0 (0.0-0.2) /100WBC D-Dimer High Sensitivty NG/ML Sodium 144 (135-145) mmol/L Potassium 3.6 (3.3-5.1) mmol/L Chloride 106 (96-108) mmol/L Carbon Dioxide 24 (22-29) mmol/L Anion Gap 18 (12-20) BUN 14 (9-16) mg/dL Creatinine 0.78 (0.5-1.4) mg/dL Estim Creat Clear Calc 60.8 Estimated GFR > 60 Random Glucose 103 (60-115) mg/dL Lactic Acid (0.5-2.0) mmol/L Calcium 8.9 (8.4-10.2) mg/dL Magnesium 2.0 (1.6-2.6) mg/dL Total Bilirubin 0.7 (0.0-1.0) mg/dL AST 12 (5-31) U/L ALT 14 (0-31) U/L Alkaline Phosphatase 171 H D (39-117) U/L Troponin I High Sens (<3.5-17.0) ng/L Total Protein 7.2 D (6.5-8.0) g/dL Albumin 3.7 D (3.5-5.0) g/dL Ethyl Alcohol mg/dL COVID-19 (LAURA) Negative (Negative) COVID-19 Clin Com See Note 02/25/22 02/25/22 02/25/22 Range/Units 20:28 20:28 20:28 WBC (4.8-10.8) X10*3/uL RBC (4.20-5.50) X10*6/uL Hgb (12.0-16.0) g/dl Hct (37.0-47.0) % MCV (80.0-98.0) fL MCH (27.0-33.0) pg MCHC (31.0-35.0) g/dl RDW (11.0-16.0) % Plt Count (160-400) X10*3/uL MPV (9.4-12.3) fL Immature Gran % (Auto) (0.0-0.4) % Neut % (Auto) (45-73) % Lymph % (Auto) (20-40) % Archer % (Auto) (2-11) % Eos % (Auto) (0-4) % Baso % (Auto) (0-2) % Lymph # (Auto) (1.2-4.9) X10*3/uL Archer # (Auto) (0.1-1.2) X10*3/uL Eos # (Auto) (0.0-0.4) X10*3/uL Baso # (Auto) (0.0-0.2) X10*3/uL Abs Immat Gran (auto) (0.00-0.03) X10*3/uL Absolute Neuts (auto) (2.0-8.3) x10*3/uL Absolute Nucleated RBC (0.0-0.012) X10*3/uL Nucleated RBC % (auto) (0.0-0.2) /100WBC D-Dimer High Sensitivty NG/ML Sodium (135-145) mmol/L Potassium (3.3-5.1) mmol/L Chloride (96-108) mmol/L Carbon Dioxide (22-29) mmol/L Anion Gap (12-20) BUN (9-16) mg/dL Creatinine (0.5-1.4) mg/dL Estim Creat Clear Calc Estimated GFR Random Glucose (60-115) mg/dL Lactic Acid 1.0 (0.5-2.0) mmol/L Calcium (8.4-10.2) mg/dL Magnesium (1.6-2.6) mg/dL Total Bilirubin (0.0-1.0) mg/dL AST (5-31) U/L ALT (0-31) U/L Alkaline Phosphatase (39-117) U/L Troponin I High Sens 4.8 (<3.5-17.0) ng/L Total Protein (6.5-8.0) g/dL Albumin (3.5-5.0) g/dL Ethyl Alcohol < 10 mg/dL COVID-19 (LAURA) (Negative) COVID-19 Clin Com 02/25/22 Range/Units 20:28 WBC (4.8-10.8) X10*3/uL RBC (4.20-5.50) X10*6/uL Hgb (12.0-16.0) g/dl Hct (37.0-47.0) % MCV (80.0-98.0) fL MCH (27.0-33.0) pg MCHC (31.0-35.0) g/dl RDW (11.0-16.0) % Plt Count (160-400) X10*3/uL MPV (9.4-12.3) fL Immature Gran % (Auto) (0.0-0.4) % Neut % (Auto) (45-73) % Lymph % (Auto) (20-40) % Archer % (Auto) (2-11) % Eos % (Auto) (0-4) % Baso % (Auto) (0-2) % Lymph # (Auto) (1.2-4.9) X10*3/uL Archer # (Auto) (0.1-1.2) X10*3/uL Eos # (Auto) (0.0-0.4) X10*3/uL Baso # (Auto) (0.0-0.2) X10*3/uL Abs Immat Gran (auto) (0.00-0.03) X10*3/uL Absolute Neuts (auto) (2.0-8.3) x10*3/uL Absolute Nucleated RBC (0.0-0.012) X10*3/uL Nucleated RBC % (auto) (0.0-0.2) /100WBC D-Dimer High Sensitivty 635 NG/ML Sodium (135-145) mmol/L Potassium (3.3-5.1) mmol/L Chloride (96-108) mmol/L Carbon Dioxide (22-29) mmol/L Anion Gap (12-20) BUN (9-16) mg/dL Creatinine (0.5-1.4) mg/dL Estim Creat Clear Calc Estimated GFR Random Glucose (60-115) mg/dL Lactic Acid (0.5-2.0) mmol/L Calcium (8.4-10.2) mg/dL Magnesium (1.6-2.6) mg/dL Total Bilirubin (0.0-1.0) mg/dL AST (5-31) U/L ALT (0-31) U/L Alkaline Phosphatase (39-117) U/L Troponin I High Sens (<3.5-17.0) ng/L Total Protein (6.5-8.0) g/dL Albumin (3.5-5.0) g/dL Ethyl Alcohol mg/dL COVID-19 (LAURA) (Negative) COVID-19 Clin Com ECG Data Attestation: I personally reviewed and interpreted this ECG as follows: ECG interpretation date: 02/25/22 ECG interpretation time: 21:02 Prior ECG tracings: available for review Interpretation: Ventricular rate 103, [place] normal, QRS normal, QT/QTC normal EKG with sinus tachycardia, no ST elevations or inversions concerning for ischemia, no significant changes when compared to EKG from August 2021. Critical Care Time Critical Care Time Critical Care Time: Yes Total Critical Care Time: 35 Attestation: I attest to this time spent taking care of the patient, obtaining history, physical, reviewing labs, imaging, speaking to my attending, initiating antibiotics fluids per septic protocol Discharge Plan Discharge Clinical Impression: Pneumonia, Hypotension, Fever, Altered mental status, Weakness, Physical deconditioning Patient Disposition: Admitted As Inpatient
[2022-02-25 20:35] LABS: MANUAL DIFF FLAG NO
[2022-02-25 20:36] LABS: Basophils Absolute Auto 0.1 X10*3/uL (0.0-0.2); Basophils Percent Auto 0.3 % (0-2); Eosinophils Percent Auto 0.2 % (0-4); Hematocrit 41.7 % (37.0-47.0); Hemoglobin 13.5 g/dl (12.0-16.0); Imm Gran Abs Auto 0.14 X10*3/uL (0.00-0.03); Imm Gran Pct Auto 0.7 % (0.0-0.4); Lymphocytes Absolute Auto 1.3 X10*3/uL (1.2-4.9); Lymphocytes Percent Auto 7.2 % (20-40); Mean Corpuscular HGB Conc 32.4 g/dl (31.0-35.0); Mean Corpuscular Hemoglobin 32.5 pg (27.0-33.0); Mean Corpuscular Volume 100.2 fL (80.0-98.0); Monocytes Percent Auto 5.1 % (2-11); Neutrophils Absolute Auto 16.2 x10*3/uL (2.0-8.3); Neutrophils Percent Auto 86.5 % (45-73); Platelet Count 228 X10*3/uL (160-400); Red Blood Count 4.16 X10*6/uL (4.20-5.50); Red Cell Distribution Width 13.4 % (11.0-16.0); White Blood Count 18.7 X10*3/uL (4.8-10.8)
[2022-02-25] MEDS: 0.9 % Sodium Chloride 1,000 ML 999 ML IV (20:38)
[2022-02-25 20:43] LABS: D Dimer High Sensitivity 635 NG/ML
[2022-02-25] MEDS: cefEPime HCl 2 GM in 0.9 % Sodium Chloride 50 ML IV (20:44)
--- NOTE | 2022-02-25 20:47 | PHA.MEDREC ---
Addendum entered by Jason Ruiz, [facility] 02/25/22 21:18: Spoke to pt's sister, current keppra regimen is 200 mg at 9am, 1350 mg at 830pm, 50 mg at 4am, and 50 mg daily prn seizure acitivity, vimpat is brand name, pt wants to use own and brought in with her. Original Note: Pharmacy Consult ? Medication Reconciliation Pharmacy has completed the medication reconciliation.
[2022-02-25] MEDS: Acetaminophen 325 MG TABLET 975 MG PO (20:50)
[2022-02-25 20:51] LABS: COVID-19 Test Negative (Negative)
[2022-02-25 20:52] LABS: Ethanol < 10 mg/dL
[2022-02-25 20:55] LABS: Alanine Aminotransferase 14 U/L (0-31); Albumin Level 3.7 g/dL (3.5-5.0); Alkaline Phosphatase 171 U/L (39-117); Anion Gap 18 (12-20); Aspartate Amino Transferase 12 U/L (5-31); Bilirubin Total 0.7 mg/dL (0.0-1.0); Blood Urea Nitrogen 14 mg/dL (9-16); Calcium 8.9 mg/dL (8.4-10.2); Carbon Dioxide 24 mmol/L (22-29); Chloride 106 mmol/L (96-108); Creatinine Clr Calc Pharmacy 60.8; Estimated Glomerular Filt Rate > 60; Glucose Random 103 mg/dL (60-115); Potassium 3.6 mmol/L (3.3-5.1); Sodium 144 mmol/L (135-145); Total Protein 7.2 g/dL (6.5-8.0)
[2022-02-25 20:57] LABS: Troponin-I High Sensitivity 4.8 ng/L (<3.5-17.0)
[2022-02-25 21:09] VITALS: BP 127/74; PULSE 57; RESP 20; TEMP 37.5
[2022-02-25 21:30] VITALS: BP 118/54; PULSE 103; RESP 20; O2SAT 95
[2022-02-25] MEDS: 0.9 % Sodium Chloride 1,973.13 ML 1973.13 ML IV (21:35)
--- NOTE | 2022-02-25 21:48 | PC.NURSE ---
Pt could not take Tylenol pills whole so this RN requested liquid Tylenol but there was concern for aspiration with the liquid med. Pt received PO Tylenol with pills crushed in pudding. Pt tolerated med with pudding well.
[2022-02-25] MEDS: iohexoL 350 MG/ML 100 ML INFUS..BTL IV (22:17)
[2022-02-25 22:35] VITALS: BP 108/40; PULSE 94; RESP 20; O2SAT 99
[2022-02-25] MEDS: levETIRAcetam Oral Soln 500 MG/5 ML 1350 MG PO (22:57)
--- NOTE | 2022-02-25 23:10 | PC.NURSE ---
Pt given Keppra per MD order, Family agitated that Keppra was not given sooner, Keppra was ordered, Pharmacy took a while to verify medication, pharmacy was called by this RN, Keppra was given as soon as it was available to be pulled from [facility].
[2022-02-26] VITALS (31 sets, daily range): BP systolic 97–142; BP diastolic 43–67; PULSE 48–116; RESP 16–40; TEMP 37.8–39.5; O2SAT 88–97; BMI 31.8
[2022-02-26 00:14] LABS: Venous Blood Gas Refer to POC result
[2022-02-26 00:15] LABS: VBG Base Excess -2.2 mmol/L; VBG HCO3 21 mmol/L (22-26); VBG pCO2 34 mmHg; VBG pO2 90 mmHg
--- NOTE | 2022-02-26 00:26 | PM.CCHP ---
History of Present Illness Date of Service: 02/26/22 Attending physician on admission: Garth Tian Chief Complaint: hypotension Patient is a 61-year-old female a past medical history of Down syndrome, dementia, dysphasia, seizures, history of chronic aspiration PNA, LEONIE on CPAP, full-time caregiver is her sister as patient requires 24/7 care, nonverbal at baseline who came to the ED last evening c/o generalized weakness, diarrhea, cough and decreased p.o. intake. Patient was started on doxycycline outpatient with Dr. Whitlock, she developed diarrhea. In the ED, the patient was found to be tachycardic at 102BPM, febrile at 100.5 degrees F, hypotensive at 79/54, O2 sat 95% on RA; 30 cc/kilos fluid bolus given with no apparent resolution in the hypotension. ED provider states the blood pressures on the monitor were not accurate and she did one manually s/p IVF bolus and the patient was noted to be in the 70s systolic. At the bedside, the patients sister was feeding her pudding with her keppra in it, I requested she stop as risk for asp pna, will give IV. Upon my bedside exam VSS except for the hypotension however, with small pushes of phenylephrine, BP was easily maintained in the low 100's systolic. patient's heart rate is in 90s, respiratory rate is 16, patient is afebrile, sat is 91% on RA. Pt was originally on 4L oxygen [place] however this was stopped shortly after midnight. Patient was unarousable initially, then we suctioned her and she perked back up, was able to cough and handle her secretions. PE revealed NO JVD, regular rate and rhythm, no murmurs rubs or gallops, lungs CTA, abdomen soft, no pedal edema. I gave the patient a 0.1 mg bolus of phenylephrine x2 in the interim to support her BP until pressor gtt gets hung. Pt will be transfer to the ICU for pressors. Will monitor mental status, at this time patient is able to handle her secretions and is arousable to her baseline. Review of Systems Review of Systems: Yes Unobtainable due to mental status PMFSH Past Medical History Medical History Aspiration into airway Aspiration pneumonia Dementia Down syndrome Down syndrome Dysphagia Dysphagia causing pulmonary aspiration with swallowing Epilepsy Hypoxemia LEONIE on CPAP Pneumonia Respiratory distress Toxic metabolic encephalopathy Social History Social History Household Members: Other Household Members Other:: sister Housing: House Do you presently have visiting nurse or other home services: No (recently discharged from [facility]: PT, OT, nurse on 02/08) Patient Tobacco Use Status: Never used Tobacco Use of substances other than those prescribed or required for medical reasons: No Have you been hit, kicked, punched, or otherwise hurt by someone within the past year? If so, by whom?: No Do you feel safe in your current relationship?: No Current Relationship Is there a partner from a previous relationship who is making you feel unsafe now?: No Are you made to feel afraid or neglected: No Spiritual Healthcare Practices: N/a Faith Healthcare Practices: Pent[employer]ism Cultural Healthcare Practices: n/a Advance Directives: No Advance Directives Information Provided: No Recently lost weight without trying: No Eating poorly because of decreased appetite: Yes Nutrition Risks: Difficulty chewing, Difficulty swallowing and On aspiration precautions Patient : No : No Poor oral hygiene: No service: No Current occupational status: disabled Meds Allergies Allergy/AdvReac Type Severity Reaction Status Date / Time fentanyl [FENTANYL] Allergy Intermediate UNKNOWN Verified 10/26/21 17:17 codeine [CODEINE] Allergy Unknown UNKNOWN Verified 10/26/21 17:17 lorazepam [From ATIVAN] Allergy Unknown UNKNOWN Verified 10/26/21 17:17 oxcarbazepine [OXCARBAZEPINE] Allergy Unknown UNKNOWN Verified 10/26/21 17:17 penicillin V Allergy Unknown Unknown Verified 10/26/21 17:17 Penicillins [PENICILLINS] Allergy Unknown DIFFICULTY Verified 10/26/21 17:17 BREATHING Sulfa (Sulfonamide Allergy Unknown DIFFICULTY Verified 10/26/21 17:17 Antibiotics) BREATHING [SULFA (SULFONAMIDE ANTIBIOTICS)] levofloxacin [From LEVAQUIN] AdvReac Intermediate hallucinati Verified 10/26/21 17:17 ons phenodol Allergy Unknown Unknown Uncoded 10/26/21 17:17 Active Medications: Current Medications Acetaminophen (Acetaminophen 325 Mg Tablet) 650 mg PO BEDTIME MARLON Donepezil HCl (Donepezil Hcl 5 Mg Tablet) 5 mg PO DAILY@2200 [facility] Doxycycline Hyclate (Doxycycline Hyclate 100 Mg Tablet) 100 mg PO BID [facility] Ipratropium [place] (Ipratropium [place] Praveen 0.03 % 30 Ml [place]) 2 spray NOSTRIL-B BEDTIME [facility] Lamotrigine (Lamotrigine 25 Mg Tablet) 25 mg PO BID [facility] Levalbuterol HCl (Levalbuterol Hcl 1.25 Mg/0.5 Ml Vial.Neb) 1.25 mg INHALE Q8H PRN PRN Reason: Wheezing Levetiracetam (Levetiracetam Oral Soln 500 Mg/5 Ml) 200 mg PO DAILY@0900 [facility] Levetiracetam (Levetiracetam Oral Soln 500 Mg/5 Ml) 1,350 mg PO BEDTIME@2030 [facility] Last Admin: 02/25/22 22:57 Dose: 1,350 mg Levetiracetam (Levetiracetam Oral Soln 500 Mg/5 Ml) 50 mg PO DAILY PRN PRN Reason: Seizure Activity Levetiracetam (Levetiracetam Oral Soln 500 Mg/5 Ml) 50 mg PO DAILY@0400 [facility] Levothyroxine Sodium (Levothyroxine Sodium 88 Mcg Tablet) 88 mcg PO DAILY@1030 [facility] Non-Formulary Medication (Dextromethorphan-Guaifenesin [Mucinex Fast-Max Dm Max]) 10 ml PO Q4H PRN PRN Reason: Cough Non-Formulary Medication (Lidocaine Hcl [Aspercreme (Lidocaine Hcl)]) 1 appl TOPICAL QID PRN PRN Reason: Pain Non-Formulary Medication (Midazolam [Nayzilam]) 5 mg NOSTRIL-B DAILY PRN PRN Reason: Seizure Activity Pt Own (Vimpat Liq (10 Mg/Ml)) 10 ml PO BEDTIME@2030 [facility] Omeprazole (Omeprazole 20 Mg/10 Ml Susp.Recon) 2.5 mg PO DAILY [facility] Pharmacy Consult (Consult Rx Perform Med Rec) 1 each MISCELLANE ONCE PRN PRN Reason: Consult order Polyethylene Glycol (Polyethylene Glycol 3350 17 Gm Powd.Pack) 17 gm PO DAILY [facility] Home Medications Medication Instructions Recorded Confirmed Last Taken Type donepezil 5 mg disintegrating 5 mg PO DAILY@219910/21/20 02/25/22 10/08/21 21:00 History tablet ipratropium bromide 21 mcg (0.03 2 spray intranasal BEDTIME 10/21/20 02/25/22 10/08/21 21:00 History %) nasal spray levothyroxine 88 mcg tablet 88 mcg PO DAILY@1030 10/21/20 02/25/22 02/25/22 History lacosamide 10 mg/mL oral solution 100 mg PO BEDTIME@202910/09/21 02/25/22 02/24/22 History (Vimpat) levalbuterol HCl 1.25 mg/3 mL 1.25 mg inhalation Q8H PRN Wheezing 10/09/21 02/25/22 10/08/21 21:00 History solution for nebulization levetiracetam 100 mg/mL oral 1,350 mg PO BEDTIME@202910/09/21 02/25/22 02/24/22 History solution (Keppra) levetiracetam 100 mg/mL oral 200 mg DAILY@89910/09/21 02/25/22 02/25/22 History solution (Keppra) omeprazole magnesium 2.5 mg oral 2.5 mg PO DAILY 10/09/21 02/25/22 02/25/22 History suspension,delayed release acetaminophen 325 mg tablet 650 mg PO BEDTIME 02/25/22 02/25/22 02/24/22 History (Tylenol) dextromethorphan-guaifenesin 5 10 ml PO Q4H PRN Cough 02/25/22 02/25/22 Unknown History mg-100 mg/5 mL oral liquid (Mucinex Fast-Max DM Max) lamotrigine 25 mg chewable 25 mg PO BID 02/25/22 02/25/22 02/25/22 History dispersible tablet levetiracetam 100 mg/mL oral 50 mg PO DAILY PRN Seizure Activity 02/25/22 02/25/22 Unknown History solution levetiracetam 100 mg/mL oral 50 mg PO DAILY@0400 02/25/22 02/25/22 Unknown History solution lidocaine HCl 4 % topical cream 1 appl topical QID PRN Pain 02/25/22 02/25/22 02/25/22 History (Aspercreme (lidocaine HCl)) midazolam 5 mg/spray (0.1 mL) 5 mg intranasal DAILY PRN Seizure 02/25/22 02/25/22 Unknown History nasal spray (Nayzilam) Activity nystatin 100,000 unit/gram topical 1 appl topical TID 02/25/22 02/25/22 02/25/22 History cream polyethylene glycol 3350 17 gram 17 g PO DAILY 02/25/22 02/25/22 02/25/22 History oral powder packet (Miralax) Physical Exam Vital Signs: Vital Signs: Last Vital Signs Temp 99.5 F 02/25/22 21:09 Pulse 94 02/25/22 22:35 Resp 20 02/25/22 22:35 BP 108/40 L 02/25/22 22:35 Pulse Ox 99 02/25/22 22:35 O2 Del Method 02/25/22 22:35 O2 Flow Rate 3 02/25/22 21:30 BMI result Body Mass Index 30.3 Const: General: cooperative and tired appearing; No acute distress Nutritional Appearance: average body habitus Limitations: other limitations (nonverbal at baseline) HEENT: Head: Yes normal to inspection Eyes: General: appearance normal, both eyes and all related structures Resp: Effort & Inspection: normal respiratory effort and no respiratory distress Auscultation: clear to auscultation bilaterally Cardio: Rate: regular rate Rhythm: regular rhythm Heart sounds: normal S1 and S2 GI: Inspection: Yes normal to inspection Palpation (GI): Soft to palpation and nontender Results Labs CBC and Chem 7: 02/25/22 20:28 02/25/22 20:28 Labs: Laboratory Results - last 24 hr 02/25/22 02/25/22 02/25/22 20:25 20:28 20:28 MCV 100.2 H MCH 32.5 MCHC 32.4 RDW 13.4 Plt Count 228 MPV 10.0 Immature Gran % (Auto) 0.7 H Neut % (Auto) 86.5 H Lymph % (Auto) 7.2 L [place] % (Auto) 5.1 Eos % (Auto) 0.2 Baso % (Auto) 0.3 Lymph # (Auto) 1.3 [place] # (Auto) 1.0 Eos # (Auto) 0.0 Baso # (Auto) 0.1 Abs Immat Gran (auto) 0.14 H Absolute Neuts (auto) 16.2 H Absolute Nucleated RBC 0.000 Nucleated RBC % (auto) 0.0 D-Dimer High Sensitivty VBG pH VBG pCO2 VBG pO2 VBG HCO3 VBG O2 Saturation VBG Base Excess Anion Gap 18 Estim Creat Clear Calc 60.8 Estimated GFR > 60 Random Glucose 103 Lactic Acid Calcium 8.9 Magnesium 2.0 Total Bilirubin 0.7 AST 12 ALT 14 Alkaline Phosphatase 171 H D Total Protein 7.2 D Albumin 3.7 D Procalcitonin Ethyl Alcohol COVID-19 ([facility]) Negative COVID-19 Clin Com See Note 02/25/22 02/25/22 02/25/22 20:28 20:28 20:28 MCV MCH MCHC RDW Plt Count MPV Immature Gran % (Auto) Neut % (Auto) Lymph % (Auto) [place] % (Auto) Eos % (Auto) Baso % (Auto) Lymph # (Auto) [place] # (Auto) Eos # (Auto) Baso # (Auto) Abs Immat Gran (auto) Absolute Neuts (auto) Absolute Nucleated RBC Nucleated RBC % (auto) D-Dimer High Sensitivty 635 VBG pH VBG pCO2 VBG pO2 VBG HCO3 VBG O2 Saturation VBG Base Excess Anion Gap Estim Creat Clear Calc Estimated GFR Random Glucose Lactic Acid 1.0 Calcium Magnesium Total Bilirubin AST ALT Alkaline Phosphatase Total Protein Albumin Procalcitonin Ethyl Alcohol < 10 COVID-19 ([facility]) COVID-iconDial 02/25/22 02/26/22 20:28 00:10 MCV MCH MCHC RDW Plt Count MPV Immature Gran % (Auto) Neut % (Auto) Lymph % (Auto) [place] % (Auto) Eos % (Auto) Baso % (Auto) Lymph # (Auto) [place] # (Auto) Eos # (Auto) Baso # (Auto) Abs Immat Gran (auto) Absolute Neuts (auto) Absolute Nucleated RBC Nucleated RBC % (auto) D-Dimer High Sensitivty VBG pH 7.40 VBG pCO2 34 VBG pO2 90 VBG HCO3 21 L VBG O2 Saturation 98.0 VBG Base Excess -2.2 Anion Gap Estim Creat Clear Calc Estimated GFR Random Glucose Lactic Acid Calcium Magnesium Total Bilirubin AST ALT Alkaline Phosphatase Total Protein Albumin Procalcitonin 0.20 Ethyl Alcohol COVID-19 ([facility]) COVID-19 Clin Com Imaging Radiologist's Impressions: Impressions Chest X-Ray 02/25/22 20:04 IMPRESSION: New right lung infiltrate, I suspect right lower lobe. Abdomen/Pelvis CT 02/25/22 22:21 IMPRESSION: 1. No central pulmonary embolus. Assessment for segmental pulmonary emboli is nondiagnostic due to extensive motion artifact. 2. Extensive bilateral airspace groundglass airspace opacities in a consolidative opacity in the right lower lobe suspicious for pneumonia. Correlate clinically. 3. No colonic wall thickening or pericolonic inflammatory change to suggest the acute colitis. VTE: indeterminate Chest CTA 02/25/22 22:21 IMPRESSION: 1. No central pulmonary embolus. Assessment for segmental pulmonary emboli is nondiagnostic due to extensive motion artifact. 2. Extensive bilateral airspace groundglass airspace opacities in a consolidative opacity in the right lower lobe suspicious for pneumonia. Correlate clinically. 3. No colonic wall thickening or pericolonic inflammatory change to suggest the acute colitis. VTE: indeterminate Assessment and Plan (1) Pneumonia: Status: Acute extensive GGO, RLL PNA. DC doxy as this gave patient diarrhea; will start ceftriaxone and azithromycin, sent sputum culture (2) Hypotension: Status: Acute BP responding nicely to 0.1mg phenylephrine pushes, will add gtt and monitor BP and watch urine output (3) Fever: Status: Acute patient was given Tylenol in ED, currently afebrile; monitor (4) Dysphagia: Status: Acute Pt likely aspirated, made NPO, will order formal swallow evaluation; all meds changed to IV (5) Down syndrome: Status: Acute (6) Dementia: Status: Acute Plan As above Critical Care Time Critical Care Time (minutes): 90
[2022-02-26] MEDS: Azithromycin 500 MG in 0.9 % Sodium Chloride 250 ML 125 MG IV (00:42)
[2022-02-26] MEDS: Heparin Sodium,Porcine 5,000 UNIT/ML VIAL 5000 UNIT SUBCUT ×2 (00:42→14:19)
[2022-02-26] MEDS: Phenylephrine HCL 20 MG in 0.9 % Sodium Chloride 250 ML 24.86 MG IVCONT (01:43)
[2022-02-26] MEDS: Phenylephrine HCL 10 MG/ML VIAL IVPUSH (02:08)
[2022-02-26] MEDS: levETIRAcetam in NaCl (iso-os) 1,500 MG/100 ML PIGGYBACK 400 MG IV (03:44)
[2022-02-26 05:19] LABS: Influenza A PCR NEGATIVE (Negative); Influenza B PCR NEGATIVE (Negative); Resp Syncy Virus RNA Qual PCR NEGATIVE (Negative); SARS COV2 PCR INHOUSE POSITIVE (Negative)
[2022-02-26] MEDS: Levothyroxine Sodium 100 MCG/5 ML VIAL 50 MCG IVPUSH (05:49)
[2022-02-26] MEDS: Pantoprazole Sodium 40 MG/10 ML VIAL IVPUSH (05:49)
[2022-02-26 05:56] LABS: VBG Base Excess -2.3 mmol/L; VBG HCO3 20 mmol/L (22-26); VBG pCO2 28 mmHg; VBG pH 7.45 (7.32-7.43); VBG pO2 40 mmHg
[2022-02-26 06:11] LABS: Venous Blood Gas Refer to POC result
[2022-02-26 06:45] LABS: Basophils Absolute Auto 0.1 X10*3/uL (0.0-0.2); Basophils Percent Auto 0.5 % (0-2); Eosinophils Absolute Auto 0.1 X10*3/uL (0.0-0.4); Eosinophils Percent Auto 0.6 % (0-4); Hematocrit 36.5 % (37.0-47.0); Hemoglobin 11.8 g/dl (12.0-16.0); Imm Gran Pct Auto 2.2 % (0.0-0.4); Lymphocytes Absolute Auto 0.9 X10*3/uL (1.2-4.9); Lymphocytes Percent Auto 6.2 % (20-40); MANUAL DIFF FLAG SCAN; Mean Corpuscular HGB Conc 32.3 g/dl (31.0-35.0); Mean Corpuscular Hemoglobin 33.1 pg (27.0-33.0); Mean Corpuscular Volume 102.2 fL (80.0-98.0); Mean Platelet Volume 10.9 fL (9.4-12.3); Monocytes Absolute Auto 0.6 X10*3/uL (0.1-1.2); Monocytes Percent Auto 4.2 % (2-11); Neutrophils Percent Auto 86.3 % (45-73); PLT CLUMP 1; Red Blood Count 3.57 X10*6/uL (4.20-5.50); Red Cell Distribution Width 13.4 % (11.0-16.0); SCAN SMEAR FLAG 1
[2022-02-26 06:51] LABS: B Type Natriuretic Peptide 64 pg/mL (<100)
[2022-02-26 07:11] LABS: Amphetamine Screen Urine Not Detected (Not Detect); Barbiturates, Urine Not Detected (Not Detect); Benzodiazepines Screen Urine Not Detected (Not Detect); Cannabinoid Screen Urine Not Detected (Not Detect); Cocaine Screen Urine Not Detected (Not Detect); Fentanyl, urine Not Detected (Not Detect); Opiate Screen Urine Not Detected (Not Detect); Phencyclidine Screen Urine Not Detected (Not Detect)
[2022-02-26 07:21] LABS: Alanine Aminotransferase 11 U/L (0-31); Alkaline Phosphatase 160 U/L (39-117); Anion Gap 15 (12-20); Aspartate Amino Transferase 21 U/L (5-31); Bilirubin Total 0.7 mg/dL (0.0-1.0); Blood Urea Nitrogen 9 mg/dL (9-16); Calcium 8.2 mg/dL (8.4-10.2); Carbon Dioxide 19 mmol/L (22-29); Chloride 114 mmol/L (96-108); Creatinine Clr Calc Pharmacy 72.9; Estimated Glomerular Filt Rate > 60; Glucose Random 92 mg/dL (60-115); Magnesium 1.9 mg/dL (1.6-2.6); Phosphorus 2.4 mg/dL (2.7-4.5); Potassium 4.1 mmol/L (3.3-5.1); Sodium 144 mmol/L (135-145); Total Protein 6.2 g/dL (6.5-8.0)
[2022-02-26 07:34] LABS: Platelet Count 161 X10*3/uL (160-400); White Blood Count 13.9 X10*3/uL (4.8-10.8)
[2022-02-26 07:35] LABS: SLIDE REVIEW VERIFIED
[2022-02-26] MEDS: cefTRIAXone sodium 1 GM in 0.9 % Sodium Chloride 50 ML IV (08:31)
[2022-02-26] MEDS: Albuterol/Iprat 2.5/0.5MG 3 ML AMPUL.NEB INHALE ×4 (08:33→20:41)
[2022-02-26] MEDS: levETIRAcetam 250 MG in 0.9 % Sodium Chloride 100 ML 410 MG IV (09:15)
[2022-02-26] MEDS: Acetaminophen Supp 325 MG SUPP.RECT PR (10:24)
[2022-02-26 12:31] LABS: Adenovirus PCR Not Detected (Not Detect.); Bordetella parapertussis PCR Not Detected (Not Detect.); Bordetella pertussis PCR Not Detected (Not Detect.); Chlamydia pneumoniae PCR Not Detected (Not Detect.); Coronavirus 229E PCR Not Detected (Not Detect.); Coronavirus HKU1 PCR Not Detected (Not Detect.); Coronavirus NL63 PCR Not Detected (Not Detect.); Coronavirus OC43 PCR Not Detected (Not Detect.); Human metapneumovirus PCR Not Detected (Not Detect.); Influenza A PCR Not Detected (Not Detect.); Influenza B PCR Not Detected (Not Detect.); Mycoplasma pneumoniae PCR Not Detected (Not Detect.); Parainfluenza 1 PCR Not Detected (Not Detect.); Parainfluenza 2 PCR Not Detected (Not Detect.); Parainfluenza 3 PCR Not Detected (Not Detect.); Parainfluenza 4 PCR Not Detected (Not Detect.); RSV PCR Not Detected (Not Detect.); Rhino/Enterovirus PCR Not Detected (Not Detect.); SARS-CoV-2 PCR Detected (Not Detect.)
[2022-02-26 13:37] LABS: CDiff Gene PCR NEGATIVE (Negative)
--- NOTE | 2022-02-26 15:33 | P.PNCC_ITS ---
Subjective Subjective Date of Service: 02/26/22 Interval History: 61-year-old with Down syndrome and some questionable dysphagia problems and definitely a distended patulous esophagus who has extensive bilateral infiltrates with areas of consolidation and ground-glass and the PCR panel did find positive SARs COVID-19 and at this point were need to figure out how to treat this because she is hypoxic she is on supplementary oxygen everything noninvasive at this point she is very very somnolent did difficult of understanding but we obtained Paxlovid in the hopes that we could Cokes down few doses to try to help the infection at this point because will have difficulties given the size of the pills once she is intubated S My bedside echo showed normal LV function no primary valve or pericardial disease Seizure history and she takes Keppra and lacosamide and lamotrigine and currentl y I have her on IV Keppra to cover and she does have normal EKG laboratory work thus far is unremarkable but apparently am going to stop the ceftriaxone and Zithromax and try to switch her over of I can not oral Paxlovid Critical Care Time (minutes): 60 Physical Exam Vital Signs: Vital Signs: Last Vital Signs Temp 1102.9 F H 02/26/22 15:00 Pulse 96 02/26/22 15:00 Resp 27 H 02/26/22 15:00 BP 114/47 L 02/26/22 15:00 Pulse Ox 96 02/26/22 15:00 O2 Del Method 02/26/22 15:00 O2 Flow Rate 6 02/26/22 15:00 BMI result Body Mass Index 31.8 Vital signs stable and she is arousable although very lethargic Good LV function by bedside echo and good bilateral carotid upstrokes with no neck vein distension Lungs with coarse scattered bilateral rhonchi Abdomen soft no organomegaly Skin intact no acrocyanosis Objective Data Labs CBC & Chem 7: 02/26/22 05:38 02/26/22 05:38 Labs: Laboratory Results - last 24 hr 02/25/22 02/25/22 02/25/22 20:25 20:28 20:28 WBC 18.7 H RBC 4.16 L Hgb 13.5 Hct 41.7 MCV 100.2 H MCH 32.5 MCHC 32.4 RDW 13.4 Plt Count 228 MPV 10.0 Immature Gran % (Auto) 0.7 H Neut % (Auto) 86.5 H Lymph % (Auto) 7.2 L [place] % (Auto) 5.1 Eos % (Auto) 0.2 Baso % (Auto) 0.3 Lymph # (Auto) 1.3 [place] # (Auto) 1.0 Eos # (Auto) 0.0 Baso # (Auto) 0.1 Abs Immat Gran (auto) 0.14 H Absolute Neuts (auto) 16.2 H Absolute Nucleated RBC 0.000 Nucleated RBC % (auto) 0.0 Smear Tech's Comments D-Dimer High Sensitivty VBG pH VBG pCO2 VBG pO2 VBG HCO3 VBG O2 Saturation VBG Base Excess Sodium 144 Potassium 3.6 Chloride 106 Carbon Dioxide 24 Anion Gap 18 BUN 14 Creatinine 0.78 Estim Creat Clear Calc 60.8 Estimated GFR > 60 Random Glucose 103 Lactic Acid Calcium 8.9 Phosphorus Magnesium 2.0 Total Bilirubin 0.7 AST 12 ALT 14 Alkaline Phosphatase 171 H D Troponin I High Sens B-Natriuretic Peptide Total Protein 7.2 D Albumin 3.7 D Procalcitonin Urine Opiates Screen Urine Fentanyl Screen Ur Barbiturates Screen Ur Phencyclidine Scrn Ur Amphetamines Screen U Benzodiazepines Scrn Urine Cocaine Screen U Marijuana (THC) Screen Ethyl Alcohol Respiratory Panel Ferrell Adenovirus (Rapid PCR) B.pert (TEM-PCR) B.parapertussis DNA PCR C. pneumoniae DNA (PCR) C. difficile Tox B Gene Coronavirus OC43 (PCR) Coronavirus HKU1 (PCR) Coronavirus 229E (PCR) COVID-19 (LAURA) Negative COVID-19 Clin Com See Note Coronavirus NL63 (PCR) Human Metapneumovir PCR Influenza A (RT-PCR) Influenza Type A (PCR) Influenza B (RT-PCR) Influenza Type B (PCR) M. pneumoniae (PCR) Parainfluenza 1 (PCR) Parainfluenza 2 (PCR) Parainfluenza 3 (PCR) Parainfluenza 4 (PCR) RSV (PCR) RSV RNA Qual (PCR) Entero/Rhino (PCR) SARS-CoV-2 RNA (RT-PCR) 02/25/22 02/25/22 02/25/22 20:28 20:28 20:28 WBC RBC Hgb Hct MCV MCH MCHC RDW Plt Count MPV Immature Gran % (Auto) Neut % (Auto) Lymph % (Auto) [place] % (Auto) Eos % (Auto) Baso % (Auto) Lymph # (Auto) [place] # (Auto) Eos # (Auto) Baso # (Auto) Abs Immat Gran (auto) Absolute Neuts (auto) Absolute Nucleated RBC Nucleated RBC % (auto) Smear Tech's Comments D-Dimer High Sensitivty VBG pH VBG pCO2 VBG pO2 VBG HCO3 VBG O2 Saturation VBG Base Excess Sodium Potassium Chloride Carbon Dioxide Anion Gap BUN Creatinine Estim Creat Clear Calc Estimated GFR Random Glucose Lactic Acid 1.0 Calcium Phosphorus Magnesium Total Bilirubin AST ALT Alkaline Phosphatase Troponin I High Sens 4.8 B-Natriuretic Peptide Total Protein Albumin Procalcitonin Urine Opiates Screen Urine Fentanyl Screen Ur Barbiturates Screen Ur Phencyclidine Scrn Ur Amphetamines Screen U Benzodiazepines Scrn Urine Cocaine Screen U Marijuana (THC) Screen Ethyl Alcohol < 10 Respiratory Panel Efrrell Adenovirus (Rapid PCR) B.pert (TEM-PCR) B.parapertussis DNA PCR C. pneumoniae DNA (PCR) C. difficile Tox B Gene Coronavirus OC43 (PCR) Coronavirus HKU1 (PCR) Coronavirus 229E (PCR) COVID-19 (LAURA) COVID-19 Clin Com Coronavirus NL63 (PCR) Human Metapneumovir PCR Influenza A (RT-PCR) Influenza Type A (PCR) Influenza B (RT-PCR) Influenza Type B (PCR) M. pneumoniae (PCR) Parainfluenza 1 (PCR) Parainfluenza 2 (PCR) Parainfluenza 3 (PCR) Parainfluenza 4 (PCR) RSV (PCR) RSV RNA Qual (PCR) Entero/Rhino (PCR) SARS-CoV-2 RNA (RT-PCR) 02/25/22 02/25/22 02/26/22 20:28 20:28 00:10 WBC RBC Hgb Hct MCV MCH MCHC RDW Plt Count MPV Immature Gran % (Auto) Neut % (Auto) Lymph % (Auto) [place] % (Auto) Eos % (Auto) Baso % (Auto) Lymph # (Auto) [place] # (Auto) Eos # (Auto) Baso # (Auto) Abs Immat Gran (auto) Absolute Neuts (auto) Absolute Nucleated RBC Nucleated RBC % (auto) Smear Tech's Comments D-Dimer High Sensitivty 635 VBG pH 7.40 VBG pCO2 34 VBG pO2 90 VBG HCO3 21 L VBG O2 Saturation 98.0 VBG Base Excess -2.2 Sodium Potassium Chloride Carbon Dioxide Anion Gap BUN Creatinine Estim Creat Clear Calc Estimated GFR Random Glucose Lactic Acid Calcium Phosphorus Magnesium Total Bilirubin AST ALT Alkaline Phosphatase Troponin I High Sens B-Natriuretic Peptide Total Protein Albumin Procalcitonin 0.20 Urine Opiates Screen Urine Fentanyl Screen Ur Barbiturates Screen Ur Phencyclidine Scrn Ur Amphetamines Screen U Benzodiazepines Scrn Urine Cocaine Screen U Marijuana (THC) Screen Ethyl Alcohol Respiratory Panel Ferrell Adenovirus (Rapid PCR) B.pert (TEM-PCR) B.parapertussis DNA PCR C. pneumoniae DNA (PCR) C. difficile Tox B Gene Coronavirus OC43 (PCR) Coronavirus HKU1 (PCR) Coronavirus 229E (PCR) COVID-19 (LAURA) COVID-19 Clin Com Coronavirus NL63 (PCR) Human Metapneumovir PCR Influenza A (RT-PCR) Influenza Type A (PCR) Influenza B (RT-PCR) Influenza Type B (PCR) M. pneumoniae (PCR) Parainfluenza 1 (PCR) Parainfluenza 2 (PCR) Parainfluenza 3 (PCR) Parainfluenza 4 (PCR) RSV (PCR) RSV RNA Qual (PCR) Entero/Rhino (PCR) SARS-CoV-2 RNA (RT-PCR) 02/26/22 02/26/22 02/26/22 04:30 04:30 05:38 WBC 13.9 H RBC 3.57 L Hgb 11.8 L Hct 36.5 L MCV 102.2 H MCH 33.1 H MCHC 32.3 RDW 13.4 Plt Count 161 D MPV 10.9 Immature Gran % (Auto) 2.2 H Neut % (Auto) 86.3 H Lymph % (Auto) 6.2 L [place] % (Auto) 4.2 Eos % (Auto) 0.6 Baso % (Auto) 0.5 Lymph # (Auto) 0.9 L [place] # (Auto) 0.6 Eos # (Auto) 0.1 Baso # (Auto) 0.1 Abs Immat Gran (auto) 0.30 H Absolute Neuts (auto) 12.0 H Absolute Nucleated RBC 0.000 Nucleated RBC % (auto) 0.0 Smear Tech's Comments VERIFIED D-Dimer High Sensitivty VBG pH VBG pCO2 VBG pO2 VBG HCO3 VBG O2 Saturation VBG Base Excess Sodium Potassium Chloride Carbon Dioxide Anion Gap BUN Creatinine Estim Creat Clear Calc Estimated GFR Random Glucose Lactic Acid Calcium Phosphorus Magnesium Total Bilirubin AST ALT Alkaline Phosphatase Troponin I High Sens B-Natriuretic Peptide Total Protein Albumin Procalcitonin Urine Opiates Screen Urine Fentanyl Screen Ur Barbiturates Screen Ur Phencyclidine Scrn Ur Amphetamines Screen U Benzodiazepines Scrn Urine Cocaine Screen U Marijuana (THC) Screen Ethyl Alcohol Respiratory Panel Ferrell See note Adenovirus (Rapid PCR) Not Detected B.pert (TEM-PCR) Not Detected B.parapertussis DNA PCR Not Detected C. pneumoniae DNA (PCR) Not Detected C. difficile Tox B Gene Coronavirus OC43 (PCR) Not Detected Coronavirus HKU1 (PCR) Not Detected Coronavirus 229E (PCR) Not Detected COVID-19 (LAURA) COVID-19 Clin Com Coronavirus NL63 (PCR) Not Detected Human Metapneumovir PCR Not Detected Influenza A (RT-PCR) Not Detected Influenza Type A (PCR) NEGATIVE Influenza B (RT-PCR) Not Detected Influenza Type B (PCR) NEGATIVE M. pneumoniae (PCR) Not Detected Parainfluenza 1 (PCR) Not Detected Parainfluenza 2 (PCR) Not Detected Parainfluenza 3 (PCR) Not Detected Parainfluenza 4 (PCR) Not Detected RSV (PCR) Not Detected RSV RNA Qual (PCR) NEGATIVE Entero/Rhino (PCR) Not Detected SARS-CoV-2 RNA (RT-PCR) POSITIVE A Detected A 02/26/22 02/26/22 02/26/22 05:38 05:38 05:50 WBC RBC Hgb Hct MCV MCH MCHC RDW Plt Count MPV Immature Gran % (Auto) Neut % (Auto) Lymph % (Auto) [place] % (Auto) Eos % (Auto) Baso % (Auto) Lymph # (Auto) [place] # (Auto) Eos # (Auto) Baso # (Auto) Abs Immat Gran (auto) Absolute Neuts (auto) Absolute Nucleated RBC Nucleated RBC % (auto) Smear Tech's Comments D-Dimer High Sensitivty VBG pH 7.45 H VBG pCO2 28 VBG pO2 40 VBG HCO3 20 L VBG O2 Saturation 70.0 VBG Base Excess -2.3 Sodium 144 Potassium 4.1 Chloride 114 H Carbon Dioxide 19 L Anion Gap 15 BUN 9 Creatinine 0.65 Estim Creat Clear Calc 72.9 Estimated GFR > 60 Random Glucose 92 Lactic Acid Calcium 8.2 L D Phosphorus 2.4 L Magnesium 1.9 Total Bilirubin 0.7 AST 21 D ALT 11 Alkaline Phosphatase 160 H Troponin I High Sens B-Natriuretic Peptide 64 Total Protein 6.2 L Albumin 3.0 L Procalcitonin Urine Opiates Screen Urine Fentanyl Screen Ur Barbiturates Screen Ur Phencyclidine Scrn Ur Amphetamines Screen U Benzodiazepines Scrn Urine Cocaine Screen U Marijuana (THC) Screen Ethyl Alcohol Respiratory Panel Ferrell Adenovirus (Rapid PCR) B.pert (TEM-PCR) B.parapertussis DNA PCR C. pneumoniae DNA (PCR) C. difficile Tox B Gene Coronavirus OC43 (PCR) Coronavirus HKU1 (PCR) Coronavirus 229E (PCR) COVID-19 (LAURA) COVID-19 Clin Com Coronavirus NL63 (PCR) Human Metapneumovir PCR Influenza A (RT-PCR) Influenza Type A (PCR) Influenza B (RT-PCR) Influenza Type B (PCR) M. pneumoniae (PCR) Parainfluenza 1 (PCR) Parainfluenza 2 (PCR) Parainfluenza 3 (PCR) Parainfluenza 4 (PCR) RSV (PCR) RSV RNA Qual (PCR) Entero/Rhino (PCR) SARS-CoV-2 RNA (RT-PCR) 02/26/22 02/26/22 06:45 10:36 WBC RBC Hgb Hct MCV MCH MCHC RDW Plt Count MPV Immature Gran % (Auto) Neut % (Auto) Lymph % (Auto) [place] % (Auto) Eos % (Auto) Baso % (Auto) Lymph # (Auto) [place] # (Auto) Eos # (Auto) Baso # (Auto) Abs Immat Gran (auto) Absolute Neuts (auto) Absolute Nucleated RBC Nucleated RBC % (auto) Smear Tech's Comments D-Dimer High Sensitivty VBG pH VBG pCO2 VBG pO2 VBG HCO3 VBG O2 Saturation VBG Base Excess Sodium Potassium Chloride Carbon Dioxide Anion Gap BUN Creatinine Estim Creat Clear Calc Estimated GFR Random Glucose Lactic Acid Calcium Phosphorus Magnesium Total Bilirubin AST ALT Alkaline Phosphatase Troponin I High Sens B-Natriuretic Peptide Total Protein Albumin Procalcitonin Urine Opiates Screen Not Detected Urine Fentanyl Screen Not Detected Ur Barbiturates Screen Not Detected Ur Phencyclidine Scrn Not Detected Ur Amphetamines Screen Not Detected U Benzodiazepines Scrn Not Detected Urine Cocaine Screen Not Detected U Marijuana (THC) Screen Not Detected Ethyl Alcohol Respiratory Panel Ferrell Adenovirus (Rapid PCR) B.pert (TEM-PCR) B.parapertussis DNA PCR C. pneumoniae DNA (PCR) C. difficile Tox B Gene NEGATIVE Coronavirus OC43 (PCR) Coronavirus HKU1 (PCR) Coronavirus 229E (PCR) COVID-19 (LAURA) COVID-19 Clin Com Coronavirus NL63 (PCR) Human Metapneumovir PCR Influenza A (RT-PCR) Influenza Type A (PCR) Influenza B (RT-PCR) Influenza Type B (PCR) M. pneumoniae (PCR) Parainfluenza 1 (PCR) Parainfluenza 2 (PCR) Parainfluenza 3 (PCR) Parainfluenza 4 (PCR) RSV (PCR) RSV RNA Qual (PCR) Entero/Rhino (PCR) SARS-CoV-2 RNA (RT-PCR) Microbiology Microbiology Results: Microbiology 02/26/22 00:25 Sputum - Suctioned Gram Stain - Final Progress Note: A&P Assessment and plan (1) Pneumonia due to COVID-19 virus: Status: Acute (2) Acute hypoxemic respiratory failure: Status: Acute (3) Pneumonia: Status: Acute (4) Hypotension: Status: Acute (5) Fever: Status: Acute (6) Altered mental status: Status: Acute (7) Weakness: Status: Acute (8) Physical deconditioning: Status: Acute (9) Respiratory distress: Status: Acute (10) Aspiration into airway: Status: Acute (11) Dysphagia: Status: Acute (12) Dementia: Status: Acute (13) Down syndrome: Status: Acute (14) Skin tear of lower leg without complication: Status: Acute (15) Acute respiratory failure with hypoxia: Status: Acute Plan So we are going to attempt to administer the oral medication and if she is unable to to swallow it might represent an indication to intubate and try to play some mechanism of feeding tube that would accommodate the pill because it cannot be crushed or broken Quality Stroke Does the patient have a stroke diagnosis?: No VTE Prior VTE?: No VTE Risk Level:: Medical - low VTE Device Contraindication: N/A - Device Ordered VTE Drug Contraindication: N/A - Med Ordered
[2022-02-26] MEDS: Phenylephrine HCL 20 MG in 0.9 % Sodium Chloride 250 ML 49.72 MG IVCONT (18:40)
--- NOTE | 2022-02-26 18:47 | PC.NURSE ---
AT START OF SHIFT PATIENT ON ROOM AIR, 02 DROPPED AT LOW 82% - 2L NC APPLIED AND TITRATED TO 6L NC TO MAINTAIN 02 > 88%. PATIENTS RESPIRATORY PANEL CAME BACK POSITIVE FOR COVID - AIR[employer]ORNE PRECAUTIONS APPLIED AND SISTER INFORMED AND SUGGESTED TO GO HOME AND QUARANTINE. PHENYLEPHRINE GTT RESTARTED TO MAINTIAN MAP > 65 - SEE EMAR. 2 ASSIST WITH PO MEDICATIONS GIVEN IN APPLESAUCE. TMAX 103.1 - SCHEDULED IV TYLENOL ADMINISTERED WITH MINIMAL EFFECT AT THIS TIME. BM X 1. BATHED, Q2HR REPO WITH PILLOWS, PINK FOAM AND BARRIER CREAM APPLIED. SISTER UPDATED THROUGHOUT THE SHIFT.
[2022-02-26] MEDS: Ipratropium Bromide Nas 0.03 % 30 ML SPRAY 2 SPRAY NOSTRIL-B (23:16)
[2022-02-27] VITALS (32 sets, daily range): BP systolic 70–166; BP diastolic 40–107; PULSE 52–121; RESP 14–33; TEMP 37.4–39.2; O2SAT 90–100; BMI 29.9
[2022-02-27 00:18] LABS: VBG Base Excess -2.7 mmol/L; VBG HCO3 21 mmol/L (22-26); VBG pCO2 35 mmHg; VBG pH 7.39 (7.32-7.43); VBG pO2 81 mmHg
[2022-02-27] MEDS: Albuterol/Iprat 2.5/0.5MG 3 ML AMPUL.NEB INHALE ×5 (00:22→20:46)
[2022-02-27] MEDS: Heparin Sodium,Porcine 5,000 UNIT/ML VIAL 5000 UNIT SUBCUT ×2 (00:31→12:05)
[2022-02-27] MEDS: Phenylephrine HCL 20 MG in 0.9 % Sodium Chloride 250 ML 24.86 MG IVCONT (00:33)
[2022-02-27 00:36] LABS: Anion Gap 14 (12-20); Blood Urea Nitrogen 8 mg/dL (9-16); Calcium 8.3 mg/dL (8.4-10.2); Carbon Dioxide 23 mmol/L (22-29); Chloride 110 mmol/L (96-108); Creatinine Clr Calc Pharmacy 66.6; Estimated Glomerular Filt Rate > 60; Glucose Random 99 mg/dL (60-115); Magnesium 1.8 mg/dL (1.6-2.6); Phosphorus 4.2 mg/dL (2.7-4.5); Potassium 3.1 mmol/L (3.3-5.1); Sodium 144 mmol/L (135-145)
[2022-02-27] MEDS: levETIRAcetam in NaCl (iso-os) 1,500 MG/100 ML PIGGYBACK 400 MG IV (00:36)
[2022-02-27] MEDS: Potassium Phosphate/NS 15 MMOL/250 ML PLAST..BAG 62.5 MMOL IV (01:25)
[2022-02-27 02:18] LABS: Venous Blood Gas Refer to POC result
[2022-02-27 05:18] LABS: VBG Base Excess -1.3 mmol/L; VBG HCO3 22 mmol/L (22-26); VBG pCO2 33 mmHg; VBG pH 7.43 (7.32-7.43); VBG pO2 31 mmHg
[2022-02-27 05:27] LABS: Hemoglobin 11.3 g/dl (12.0-16.0); Mean Corpuscular HGB Conc 31.4 g/dl (31.0-35.0); Mean Corpuscular Hemoglobin 32.3 pg (27.0-33.0); Mean Corpuscular Volume 102.9 fL (80.0-98.0); Mean Platelet Volume 10.6 fL (9.4-12.3); Platelet Count 167 X10*3/uL (160-400); Red Cell Distribution Width 13.3 % (11.0-16.0); White Blood Count 4.6 X10*3/uL (4.8-10.8)
[2022-02-27 05:42] LABS: B Type Natriuretic Peptide 217 pg/mL (<100)
[2022-02-27] MEDS: Pantoprazole Sodium 40 MG/10 ML VIAL IVPUSH (05:52)
[2022-02-27] MEDS: Levothyroxine Sodium 100 MCG/5 ML VIAL 50 MCG IVPUSH (05:52)
[2022-02-27 05:59] LABS: Alanine Aminotransferase 13 U/L (0-31); Alkaline Phosphatase 137 U/L (39-117); Anion Gap 17 (12-20); Aspartate Amino Transferase 17 U/L (5-31); Bilirubin Total 0.4 mg/dL (0.0-1.0); Blood Urea Nitrogen 8 mg/dL (9-16); Calcium 8.3 mg/dL (8.4-10.2); Carbon Dioxide 22 mmol/L (22-29); Chloride 111 mmol/L (96-108); Creatinine Clr Calc Pharmacy 69.5; Estimated Glomerular Filt Rate > 60; Glucose Random 85 mg/dL (60-115); Magnesium 1.9 mg/dL (1.6-2.6); Potassium 3.7 mmol/L (3.3-5.1); Sodium 146 mmol/L (135-145)
[2022-02-27 06:03] LABS: Venous Blood Gas Refer to POC result
[2022-02-27 06:04] LABS: Band Neutrophils Percent 10 % (3-5); Lymphocytes Absolute Manual 0.6 X10*3/uL (1.2-4.9); Lymphocytes Percent Manual 14 % (20-40); Macrocytosis 1+ (5-14) /OIF; Metamyelocytes Absolute 0.1 X10*3/uL; Metamyelocytes Percent 3 %; Monocytes Absolute Manual 0.5 X10*3/uL (0.1-1.2); Monocytes Percent Manual 10 % (2-11); Myelocytes Absolute 0.2 X10*/uL; Myelocytes Percent 4 %; Neutrophils Percent Manual 55 % (45-73); Platelet Estimate SLIGHTLY DECREASED (NORMAL); Promyelocytes Absolute 0.2 X10*3/uL; Promyelocytes Percent 4 %; RBC Morphology NOTED
[2022-02-27 06:05] LABS: Burr Cells 3+ (>5) /OIF; Platelet Morphology Comment NORMAL; Schistocytes 1+ (0-2) /OIF; Smudge Cells PRESENT
[2022-02-27 06:35] LABS: Procalcitonin 0.11 ng/mL
[2022-02-27] MEDS: levETIRAcetam 250 MG in 0.9 % Sodium Chloride 100 ML 410 MG IV (09:45)
--- NOTE | 2022-02-27 14:04 | MHC.CM.PN ---
IMM 02/27/22 copy left at bedside for Sister, Denise. Female 61 DX Covid+,Aspiration PNA, Diarrhea R/T ABX, Doxy. PMH DOWNS She lives with her sister. She is WC bound. [employer] through [facility] Mon-Sat. [facility] discharged 02/10/22. Patient is vaccinated for covid per sis. HCP on file. DP restart [facility] transport home via BLS.
--- NOTE | 2022-02-27 14:23 | PM.CCPN ---
Subjective Subjective Date of Service: 02/27/22 Interval History: 61-year-old female with Down syndrome who has had at least 2 days of cough and increasing shortness of breath and the initial COVID testing by nucleic acid was negative but several hours later PCR panel came back positive for COVID and she has extensive bilateral ground-glass as well as consolidative infiltrates on CT scan so it is all consistent and was still on nasal cannula oxygenation but was very lethargic and in our most awaken best of days she has an element of dysphagia but we felt her best chance at this point because he was still within a 48 hour window presumably was to start her on Paxil of id and we have been able to coax her into swallowing every 12 hours the dose thus far she remains on nasal cannula with with less coughing today less tachypnea Bedside echo showed perfectly normal cardiac anatomy Critical Care Time (minutes): 45 Physical Exam Vital Signs: Vital Signs: Last Vital Signs Temp 99.3 F 02/27/22 12:00 Pulse 74 02/27/22 14:00 Resp 16 02/27/22 14:00 BP 136/61 02/27/22 14:00 Pulse Ox 97 02/27/22 14:00 O2 Del Method 02/27/22 14:00 O2 Flow Rate 3 02/27/22 14:00 BMI result Body Mass Index 29.9 She 0 awakens arouses and that is an improvement moves all 4 extremities Bedside echo with class 1 LV and RV function Abdomen soft with no organomegaly Lungs with scattered coarse bilateral rales no adventitious sounds no accessory or diaphragmatic effort Skin is intact Objective Data Labs CBC & Chem 7: 02/27/22 05:08 02/27/22 05:08 Labs: Laboratory Results - last 24 hr 02/27/22 02/27/22 02/27/22 00:02 00:12 05:08 WBC RBC Hgb Hct MCV MCH MCHC RDW Plt Count MPV Immature Gran % (Auto) Neut % (Auto) Lymph % (Auto) [place] % (Auto) Eos % (Auto) Baso % (Auto) Lymph # (Auto) [place] # (Auto) Eos # (Auto) Baso # (Auto) Abs Immat Gran (auto) Absolute Neuts (auto) Absolute Nucleated RBC Nucleated RBC % (auto) Neutrophils % (Manual) Band Neutrophils % Lymphocytes % (Manual) Monocytes % (Manual) Metamyelocytes % Myelocytes % Promyelocytes % Abs Neuts (Manual) Lymphocytes # (Manual) Monocytes # (Manual) Metamyelocytes # Myelocytes # Promyelocytes # Smudge Cells Platelet Estimate Plt Morphology Comment RBC Morphology Macrocytosis [place] Cells Schistocytes VBG pH 7.39 VBG pCO2 35 VBG pO2 81 VBG HCO3 21 L VBG O2 Saturation 96.0 VBG Base Excess -2.7 Sodium 144 Potassium 3.1 L D Chloride 110 H Carbon Dioxide 23 Anion Gap 14 BUN 8 L Creatinine 0.73 Estim Creat Clear Calc 66.6 Estimated GFR > 60 Random Glucose 99 Calcium 8.3 L Phosphorus 4.2 Magnesium 1.8 Total Bilirubin AST ALT Alkaline Phosphatase B-Natriuretic Peptide Total Protein Albumin Procalcitonin 0.11 02/27/22 02/27/22 02/27/22 05:08 05:08 05:08 WBC 4.6 L RBC 3.50 L Hgb 11.3 L Hct 36.0 L MCV 102.9 H MCH 32.3 MCHC 31.4 RDW 13.3 Plt Count 167 MPV 10.6 Immature Gran % (Auto) Cancelled Neut % (Auto) Cancelled Lymph % (Auto) Cancelled [place] % (Auto) Cancelled Eos % (Auto) Cancelled Baso % (Auto) Cancelled Lymph # (Auto) Cancelled [place] # (Auto) Cancelled Eos # (Auto) Cancelled Baso # (Auto) Cancelled Abs Immat Gran (auto) Cancelled Absolute Neuts (auto) Cancelled Absolute Nucleated RBC 0.000 Nucleated RBC % (auto) 0.0 Neutrophils % (Manual) 55 Band Neutrophils % 10 H Lymphocytes % (Manual) 14 L Monocytes % (Manual) 10 Metamyelocytes % 3 Myelocytes % 4 Promyelocytes % 4 Abs Neuts (Manual) 3.0 Lymphocytes # (Manual) 0.6 L Monocytes # (Manual) 0.5 Metamyelocytes # 0.1 Myelocytes # 0.2 Promyelocytes # 0.2 Smudge Cells PRESENT Platelet Estimate SLIGHTLY DECREASED Plt Morphology Comment NORMAL RBC Morphology NOTED Macrocytosis 1+ (5-14) Reza Cells 3+ (>5) Schistocytes 1+ (0-2) VBG pH VBG pCO2 VBG pO2 VBG HCO3 VBG O2 Saturation VBG Base Excess Sodium 146 H Potassium 3.7 Chloride 111 H Carbon Dioxide 22 Anion Gap 17 BUN 8 L Creatinine 0.70 Estim Creat Clear Calc 69.5 Estimated GFR > 60 Random Glucose 85 Calcium 8.3 L Phosphorus 5.0 H Magnesium 1.9 Total Bilirubin 0.4 AST 17 ALT 13 Alkaline Phosphatase 137 H B-Natriuretic Peptide 217 H Total Protein 6.0 L Albumin 3.0 L Procalcitonin 02/27/22 05:11 WBC RBC Hgb Hct MCV MCH MCHC RDW Plt Count MPV Immature Gran % (Auto) Neut % (Auto) Lymph % (Auto) [place] % (Auto) Eos % (Auto) Baso % (Auto) Lymph # (Auto) [place] # (Auto) Eos # (Auto) Baso # (Auto) Abs Immat Gran (auto) Absolute Neuts (auto) Absolute Nucleated RBC Nucleated RBC % (auto) Neutrophils % (Manual) Band Neutrophils % Lymphocytes % (Manual) Monocytes % (Manual) Metamyelocytes % Myelocytes % Promyelocytes % Abs Neuts (Manual) Lymphocytes # (Manual) Monocytes # (Manual) Metamyelocytes # Myelocytes # Promyelocytes # Smudge Cells Platelet Estimate Plt Morphology Comment RBC Morphology Macrocytosis [place] Cells Schistocytes VBG pH 7.43 VBG pCO2 33 VBG pO2 31 VBG HCO3 22 VBG O2 Saturation 51.0 VBG Base Excess -1.3 Sodium Potassium Chloride Carbon Dioxide Anion Gap BUN Creatinine Estim Creat Clear Calc Estimated GFR Random Glucose Calcium Phosphorus Magnesium Total Bilirubin AST ALT Alkaline Phosphatase B-Natriuretic Peptide Total Protein Albumin Procalcitonin Microbiology Microbiology Results: Microbiology 02/25/22 20:28 Blood - Venous Blood Culture - Preliminary Prelim: GPC Gram Stain only 02/26/22 00:25 Sputum - Suctioned Gram Stain - Final 02/26/22 00:25 Sputum - Suctioned Sputum Culture - Preliminary Culture in progress. 02/25/22 20:24 Blood - Venous Blood Culture - Preliminary No growth after 24 hours. Progress Note: A&P Assessment and plan (1) Acute hypoxemic respiratory failure: Status: Acute (2) Pneumonia due to COVID-19 virus: Status: Acute (3) Pneumonia: Status: Acute (4) Hypotension: Status: Acute (5) Fever: Status: Acute (6) Altered mental status: Status: Acute (7) Weakness: Status: Acute (8) Physical deconditioning: Status: Acute (9) Respiratory distress: Status: Acute (10) Aspiration into airway: Status: Acute (11) Dysphagia: Status: Acute (12) Dementia: Status: Acute (13) Down syndrome: Status: Acute (14) Skin tear of lower leg without complication: Status: Acute (15) Acute respiratory failure with hypoxia: Status: Acute Plan So the plan is to continue with the Paxil abated as long as she tolerates the swallowing and maybe we can avoid the need to progressed intubation and I definitely would avoid BiPAP because it definitely sounds like adeno she is an aspirate her and being that were keeping her NPO otherwise for now until formal swallow instructs us with her dysphagia and because the serum sodium is up to 147 we do have free water deficit them going to start IV fluids Quality Stroke Does the patient have a stroke diagnosis?: No VTE Prior VTE?: No VTE Risk Level:: Medical - low VTE Device Contraindication: N/A - Device Ordered VTE Drug Contraindication: N/A - Med Ordered
[2022-02-27] MEDS: KCl 20 mEq in 5% Dex/0.45% Sod 20 MEQ/1,000 ML IV.SOLN 80 MEQ IVCONT (14:40)
--- NOTE | 2022-02-27 18:48 | PC.NURSE ---
ABLE TO TITRATE 02 DOWN FROM 6L GOMEZ TO 3L GOMEZ CANNULA AND TOLERATING WELL. PHENYLEPHRINE RESTARTED AND TITRATED PER ORDER - SEE EMAR. COOLING BLANKET REAPPLIED WHEN CORE TEMP REACHED 100.7 - CURRENTLY 99.9 BATHED, Q2HR REPO, PINK FOAM, BARRIER CREAM, PREVALON SYSTEM, PILLOWS AND WEDGES UTILIZED. FAMILY UPDATED THROUGHOUT SHIFT AND FACETIMED WITH FAMILY MULTIPLE TIMES.
[2022-02-27] MEDS: Phenylephrine HCL 20 MG in 0.9 % Sodium Chloride 250 ML 14.92 MG IVCONT (18:58)
[2022-02-27] MEDS: Ipratropium Bromide Nas 0.03 % 30 ML SPRAY 2 SPRAY NOSTRIL-B (22:23)
[2022-02-28] VITALS (25 sets, daily range): BP systolic 99–144; BP diastolic 45–112; PULSE 67–102; RESP 15–33; TEMP 37.1–38.2; O2SAT 87–100; BMI 29.5
[2022-02-28] MEDS: Heparin Sodium,Porcine 5,000 UNIT/ML VIAL 5000 UNIT SUBCUT ×2 (01:11→11:26)
[2022-02-28] MEDS: levETIRAcetam in NaCl (iso-os) 1,500 MG/100 ML PIGGYBACK 400 MG IV (01:12)
[2022-02-28] MEDS: KCl 20 mEq in 5% Dex/0.45% Sod 20 MEQ/1,000 ML IV.SOLN 80 MEQ IVCONT (02:54)
[2022-02-28 05:23] LABS: VBG Base Excess 4.5 mmol/L; VBG HCO3 27 mmol/L (22-26); VBG pCO2 35 mmHg; VBG pH 7.49 (7.32-7.43); VBG pO2 27 mmHg
[2022-02-28 05:29] LABS: Venous Blood Gas Refer to POC result
[2022-02-28 05:30] LABS: Hematocrit 40.3 % (37.0-47.0); Hemoglobin 13.1 g/dl (12.0-16.0); Mean Corpuscular HGB Conc 32.5 g/dl (31.0-35.0); Mean Corpuscular Hemoglobin 32.1 pg (27.0-33.0); Mean Corpuscular Volume 98.8 fL (80.0-98.0); Mean Platelet Volume 10.4 fL (9.4-12.3); Platelet Count 184 X10*3/uL (160-400); Red Blood Count 4.08 X10*6/uL (4.20-5.50); Red Cell Distribution Width 12.9 % (11.0-16.0); White Blood Count 4.6 X10*3/uL (4.8-10.8)
[2022-02-28] MEDS: Pantoprazole Sodium 40 MG/10 ML VIAL IVPUSH (05:37)
[2022-02-28] MEDS: Levothyroxine Sodium 100 MCG/5 ML VIAL 50 MCG IVPUSH (05:37)
[2022-02-28 05:46] LABS: Alanine Aminotransferase 17 U/L (0-31); Albumin Level 3.4 g/dL (3.5-5.0); Alkaline Phosphatase 141 U/L (39-117); Anion Gap 18 (12-20); Aspartate Amino Transferase 32 U/L (5-31); Bilirubin Total 0.4 mg/dL (0.0-1.0); Blood Urea Nitrogen 3 mg/dL (9-16); Calcium 8.5 mg/dL (8.4-10.2); Carbon Dioxide 29 mmol/L (22-29); Chloride 102 mmol/L (96-108); Creatinine Clr Calc Pharmacy 73.6; Estimated Glomerular Filt Rate > 60; Glucose Random 123 mg/dL (60-115); Magnesium 1.7 mg/dL (1.6-2.6); Phosphorus 2.4 mg/dL (2.7-4.5); Potassium 3.5 mmol/L (3.3-5.1); Sodium 145 mmol/L (135-145); Total Protein 6.5 g/dL (6.5-8.0)
[2022-02-28 05:49] LABS: B Type Natriuretic Peptide 279 pg/mL (<100)
[2022-02-28 06:12] LABS: Band Neutrophils Percent 7 % (3-5); Lymphocytes Absolute Manual 0.7 X10*3/uL (1.2-4.9); Lymphocytes Percent Manual 15 % (20-40); Metamyelocytes Absolute 0.1 X10*3/uL; Metamyelocytes Percent 2 %; Monocytes Absolute Manual 0.6 X10*3/uL (0.1-1.2); Monocytes Percent Manual 14 % (2-11); Myelocytes Percent 1 %; Neutrophils Absolute Manual 3.1 X10*3/uL (2.0-8.3); Neutrophils Percent Manual 60 % (45-73); Promyelocytes Percent 1 %
[2022-02-28 06:14] LABS: Platelet Estimate NORMAL (NORMAL); Platelet Morphology Comment NORMAL; RBC Morphology NORMAL
[2022-02-28] MEDS: Albuterol/Iprat 2.5/0.5MG 3 ML AMPUL.NEB INHALE (06:37)
[2022-02-28] MEDS: levETIRAcetam 250 MG in 0.9 % Sodium Chloride 100 ML 410 MG IV (07:28)
[2022-02-28] MEDS: Potassium Phosphate/NS 15 MMOL/250 ML PLAST..BAG 62.5 MMOL IV (08:41)
[2022-02-28] MEDS: Furosemide 40 MG/4 ML VIAL IVPUSH (08:41)
[2022-02-28] MEDS: Albumin Human 25 % 100 ML IV ×3 (08:41→23:24)
--- NOTE | 2022-02-28 11:17 | MHC.CLN ---
RE: CONSULT PT WITH INCREASED NUTRITION RISK R/T PRESSURE INJURIES PT IS CURRENTLY NPO -AWAITING SWALLOW EVAL R/T HX ASP PNA WHEN DIET TO ADVANCE, RECOMMEND ADDING ENSURE BID TO INCREASE KCALS AND PROMOTE WOUND HEALING SUPP TO PROVIDE 700KCALS, 40G PROTEIN MONITOR PO INTAKE CLOSELY SEE ALSO FULL CLINICAL NUTRITION ASSESSMENT
--- NOTE | 2022-02-28 11:22 | P.PNCC_ITS ---
Subjective Subjective Date of Service: 02/28/22 Interval History: 61-year-old lady with underlying Down syndrome, dementia, dysphagia, seizures chronic respirations, LEONIE on CPAP admitted on 02/26/2022 with viral prodrome, acute hypoxia, and hypotension secondary to COVID-19 requiring transfer to intensive care unit for brief vasopressor support. No events overnight. Titrated off pressors. Hypoxia improving with diuretic. Critical Care Time (minutes): 0 Physical Exam Vital Signs: Vital Signs: Last Vital Signs Temp 99.4 F 02/28/22 08:00 Pulse 85 02/28/22 11:00 Resp 15 02/28/22 10:00 BP 120/53 L 02/28/22 11:00 Pulse Ox 99 02/28/22 11:00 O2 Del Method 02/28/22 11:00 O2 Flow Rate 9 02/28/22 11:00 BMI result Body Mass Index 29.5 Const: General: no acute distress, alert and awake Eyes: Sclerae: sclerae normal EOM: EOMs intact bilaterally Neck: Neck: Yes no lymphadenopathy, Yes trachea midline and Yes supple Resp: Effort & Inspection: normal respiratory effort and no respiratory distress Auscultation: crackles (Diffuse bilateral) Cardio: Rate: regular rate Rhythm: regular rhythm Heart sounds: no gallops, no murmurs and no rubs GI: Palpation (GI): Soft to palpation and Other GI palpation findings present ( Nontender) Auscultation: normal bowel sounds Extrem: General: No clubbing, No cyanosis and Yes edema (Trace bilateral) Objective Data Labs CBC & Chem 7: 02/28/22 05:18 02/28/22 05:18 Labs: Laboratory Results - last 24 hr 02/28/22 02/28/22 02/28/22 05:17 05:18 05:18 WBC 4.6 L RBC 4.08 L Hgb 13.1 Hct 40.3 MCV 98.8 H MCH 32.1 MCHC 32.5 RDW 12.9 Plt Count 184 MPV 10.4 Immature Gran % (Auto) Cancelled Neut % (Auto) Cancelled Lymph % (Auto) Cancelled [place] % (Auto) Cancelled Eos % (Auto) Cancelled Baso % (Auto) Cancelled Lymph # (Auto) Cancelled [place] # (Auto) Cancelled Eos # (Auto) Cancelled Baso # (Auto) Cancelled Abs Immat Gran (auto) Cancelled Absolute Neuts (auto) Cancelled Absolute Nucleated RBC 0.000 Nucleated RBC % (auto) 0.0 Neutrophils % (Manual) 60 Band Neutrophils % 7 H Lymphocytes % (Manual) 15 L Monocytes % (Manual) 14 H Metamyelocytes % 2 Myelocytes % 1 Promyelocytes % 1 Abs Neuts (Manual) 3.1 Lymphocytes # (Manual) 0.7 L Monocytes # (Manual) 0.6 Metamyelocytes # 0.1 Platelet Estimate NORMAL Plt Morphology Comment NORMAL RBC Morphology NORMAL VBG pH 7.49 H VBG pCO2 35 VBG pO2 27 VBG HCO3 27 H VBG O2 Saturation 39.0 VBG Base Excess 4.5 Sodium 145 Potassium 3.5 Chloride 102 Carbon Dioxide 29 Anion Gap 18 BUN 3 L D Creatinine 0.64 Estim Creat Clear Calc 73.6 Estimated GFR > 60 Random Glucose 123 H Calcium 8.5 Phosphorus 2.4 L Magnesium 1.7 Total Bilirubin 0.4 AST 32 H D ALT 17 Alkaline Phosphatase 141 H B-Natriuretic Peptide Total Protein 6.5 Albumin 3.4 L 02/28/22 05:18 WBC RBC Hgb Hct MCV MCH MCHC RDW Plt Count MPV Immature Gran % (Auto) Neut % (Auto) Lymph % (Auto) [place] % (Auto) Eos % (Auto) Baso % (Auto) Lymph # (Auto) [place] # (Auto) Eos # (Auto) Baso # (Auto) Abs Immat Gran (auto) Absolute Neuts (auto) Absolute Nucleated RBC Nucleated RBC % (auto) Neutrophils % (Manual) Band Neutrophils % Lymphocytes % (Manual) Monocytes % (Manual) Metamyelocytes % Myelocytes % Promyelocytes % Abs Neuts (Manual) Lymphocytes # (Manual) Monocytes # (Manual) Metamyelocytes # Platelet Estimate Plt Morphology Comment RBC Morphology VBG pH VBG pCO2 VBG pO2 VBG HCO3 VBG O2 Saturation VBG Base Excess Sodium Potassium Chloride Carbon Dioxide Anion Gap BUN Creatinine Estim Creat Clear Calc Estimated GFR Random Glucose Calcium Phosphorus Magnesium Total Bilirubin AST ALT Alkaline Phosphatase B-Natriuretic Peptide 279 H Total Protein Albumin Microbiology Microbiology Results: Microbiology 02/26/22 00:25 Sputum - Suctioned Gram Stain - Final 02/26/22 00:25 Sputum - Suctioned Sputum Culture - Preliminary Culture in progress. 02/25/22 20:28 Blood - Venous Blood Culture - Preliminary Gram positive cocci 02/25/22 20:24 Blood - Venous Blood Culture - Preliminary No growth after 48 hours. Progress Note: A&P Assessment and plan (1) Acute hypoxemic respiratory failure: Status: Acute (2) Pneumonia due to COVID-19 virus: Status: Acute (3) Down syndrome: Status: Acute (4) Seizure disorder: Status: Acute (5) Dementia: Status: Acute (6) LEONIE on CPAP: Status: Acute Plan Assessment: Plan: Neuro: Underlying seizure disorder, continue on Lamictal, Keppra, and Vimpat. Underlying Down syndrome and dementia. Cardiac: No acute issues. Pulmonary: Acute hypoxic respiratory failure secondary to combination of COVID 19 and volume overload, improving with diuresis. Renal: No acute issues. Endo: No acute issues. GI: No acute issues. ID: No acute issues Heme/Onc: No acute issues. Psych: No acute issues. Miscellaneous: No acute issues. Prophylaxis: Heparin Diet: Pending swallow evaluation Quality Stroke Does the patient have a stroke diagnosis?: No VTE Prior VTE?: No VTE Risk Level:: Medical - low VTE Device Contraindication: N/A - Device Ordered VTE Drug Contraindication: N/A - Med Ordered
--- NOTE | 2022-02-28 11:45 | P.CDIC_ITS ---
CDI Concurrent Query Documentation Clarification: PHYSICIAN'S DOCUMENTATION REQUEST Date of Query: 02/28/22 1145 Patient Name: Ann Marie Gold Admit Date: 02/26/22 Dear Doctor, A review of the medical record indicates additional documentation may be indicated. Please review below and update the documentation accordingly. Clinical Indicators: Risk Factors/Clinical Indicators/Treatments Wound care notes 02/28 - Pressure injury Stage II Bilateral buttocks. Dusky red, peeling skin Foam Based on the above, could you please provide, in the Progress Notes, further information regarding the ulcer/wound: * If a pressure ulcer, please also include the stage* of the ulcer: * Stage 1 - Skin intact, non-blanchable redness * Stage 2 - Partial thickness loss of dermis, includes intact or open blister * Stage 3 - Full thickness tissue not including bone, tendon, or muscle * Other * Unable to determine *Source: National Pressure Ulcer Advisory Panel (NPUAP) Use of terms such as suspected, likely, concern for, or probable (associated with a specific diagnosis that is being evaluated, monitored, or treated as if it exists) are acceptable and can be coded in the inpatient setting, when documented at the time of discharge. Thank you, Pam Pina [facility], CDIS Extension: [phone] Please use your independent medical judgment in providing your response. THIS QUERY IS PART OF THE PERMANENT MEDICAL RECORD Provider Response: Other ( stage II pressure ulcer on bilateral buttocks present on admission) Other Diagnosis: stage II pressure ulcer
--- NOTE | 2022-02-28 15:57 | MHC.SL.SWA ---
Speech Pathologist Impression: Oropharyngeal dysphagia Risk of Aspiration Due to: History of Pneumonia Reduced Cognition Dysphasia Diet Status: No changes at this time. Recommend continue NPO. Liquid Consistency and Strategies for Safe Swallow: Liquid Intake Recommendation: NPO Liquid Intake Strategies: Solid Food Consistency: Dietary Recommendations: NPO Additional Modifications to Solid Foods: Pt displayed overt s/s of aspiration with PO intake. Recommend continue NPO at this time. Updated MD, RN, RD via [place] Message. No changes made to diet order at this time. Oral Medication Intake: NPO Please contact the pharmacy regarding appropriate crushable or liquid drug formulations that are available whenever modified delivery is recommended. Supervision While Eating and Drinking for Safe Swallow: PO with TEAM PRIMARY CARE PHYSICIAN Swallowing Recommended Treatments: Thermal Stimulation Gustatory Stimulation Recommendation for Speech: Inpatient Speech Therapy Transmission System Operator Clinican/Clinical Fellow: No Supervisory Statement: I have reviewed and agree with the student/clinical fellow's documentation: N/A Speech Language Pathologist: Dayana Yu M.A., CCC-TEAM PRIMARY CARE PHYSICIAN
--- NOTE | 2022-02-28 16:26 | HO.WOUNDCONS ---
History of Present Illness Data of Consult Service Date: 02/28/22 Requesting physician: Nitza Monsalve Primary Care Provider: Ramesh Stratton MD [facility] Reason for consult: buttock ulcer 61-year-old female with Down's syndrome, seizure disorder and recent difficulties with aspiration associated with long standing dysphagia. Hospitalized since 02/25 for hypoxia, now extubated but nonverbal. Concern for aspiration pneumonia. On COVID precautions today. Asked to evaluate buttock wound for ?staging . Mobility at the time of hospitalization is reported to be nonambulatory however the patient cannot verify this. It sounds like she was either cane or wheelchair dependent in the months prior to hospitalization but her mobility status is not completely understood. Review of Systems Review of Systems: Yes Unobtainable due to mental condition [facility] Medical History (Updated 02/28/22 @ 16:46 by YOBANI Giles) Aspiration into airway Aspiration pneumonia Dementia Down syndrome Down syndrome Dysphagia Dysphagia causing pulmonary aspiration with swallowing Epilepsy Hypoxemia LEONIE on CPAP Pneumonia Respiratory distress Toxic metabolic encephalopathy Social History Household Members: Other Household Members Other:: sister Housing: House Do you presently have visiting nurse or other home services: No (recently discharged from [facility]: PT, OT, nurse on 02/08) Patient Tobacco Use Status: Never used Tobacco Use of substances other than those prescribed or required for medical reasons: No Currently Displaying Signs/Symptoms of Drug Intoxication Withdrawal: No Have you been hit, kicked, punched, or otherwise hurt by someone within the past year? If so, by whom?: No Do you feel safe in your current relationship?: No Current Relationship Is there a partner from a previous relationship who is making you feel unsafe now?: No Are you made to feel afraid or neglected: No Spiritual Healthcare Practices: N/a [facility] Practices: [facility] Cultural Healthcare Practices: n/a Advance Directives: No Advance Directives Information Provided: No Recently lost weight without trying: No Eating poorly because of decreased appetite: Yes Nutrition Risks: Difficulty chewing, Difficulty swallowing and On aspiration precautions Patient : No : No Poor oral hygiene: No service: No Current occupational status: disabled Meds Allergies Allergy/AdvReac Type Severity Reaction Status Date / Time fentanyl [FENTANYL] Allergy Intermediate UNKNOWN Verified 10/26/21 17:17 codeine [CODEINE] Allergy Unknown UNKNOWN Verified 10/26/21 17:17 lorazepam [From ATIVAN] Allergy Unknown UNKNOWN Verified 10/26/21 17:17 oxcarbazepine [OXCARBAZEPINE] Allergy Unknown UNKNOWN Verified 10/26/21 17:17 penicillin V Allergy Unknown Unknown Verified 10/26/21 17:17 Penicillins [PENICILLINS] Allergy Unknown DIFFICULTY Verified 10/26/21 17:17 BREATHING Sulfa (Sulfonamide Allergy Unknown DIFFICULTY Verified 10/26/21 17:17 Antibiotics) BREATHING [SULFA (SULFONAMIDE ANTIBIOTICS)] levofloxacin [From LEVAQUIN] AdvReac Intermediate hallucinati Verified 10/26/21 17:17 ons phenodol Allergy Unknown Unknown Uncoded 10/26/21 17:17 Active Medications: Current Medications Heparin Sodium (Porcine) (Heparin Sodium,Porcine 5,000 Unit/Ml Vial) 5,000 unit SUBCUT Q12H [facility] Last Admin: 02/28/22 11:26 Dose: 5,000 unit Levetiracetam (Keppra) 1,500 mg in 100 mls @ 400 mls/hr IV Q24H [facility] Last Infusion: 02/28/22 01:45 Dose: Infused Levetiracetam 250 mg/ Sodium (Chloride) 102.5 mls @ 410 mls/hr IV Q24H [facility] Last Infusion: 02/28/22 08:02 Dose: Infused Albumin Human (Kedbumin 25 %) 100 mls @ 100 mls/hr IV Q6H [facility] Stop: 03/01/22 03:14 Last Infusion: 02/28/22 15:49 Dose: Infused Ipratropium [place] (Ipratropium [place] Praveen 0.03 % 30 Ml [place]) 2 spray NOSTRIL-B BEDTIME [facility] Last Admin: 02/27/22 22:23 Dose: 2 spray Lamotrigine (Lamotrigine 25 Mg Tablet) 25 mg PO BID [facility] Levalbuterol HCl (Levalbuterol Hcl 1.25 Mg/0.5 Ml Vial.Neb) 1.25 mg INHALE Q8H PRN PRN Reason: Wheezing Levothyroxine Sodium (Levothyroxine Sodium 100 Mcg/5 Ml Vial) 50 mcg IVPUSH DAILY@0600 [facility] Last Admin: 02/28/22 05:37 Dose: 50 mcg Pt Own (Vimpat Liq (10 Mg/Ml)) 10 ml PO BEDTIME@2029 [facility] Pantoprazole Sodium (Pantoprazole Sodium 40 Mg/10 Ml Vial) 40 mg IVPUSH DAILY@06 [facility] Last Admin: 02/28/22 05:37 Dose: 40 mg Pharmacy Consult (Consult Rx Perform Med Rec) 1 each MISCELLANE ONCE PRN PRN Reason: Consult order Home Medications Medication Instructions Recorded Confirmed Last Taken Type donepezil 5 mg disintegrating 5 mg PO DAILY@219910/21/20 02/25/22 10/08/21 21:00 History tablet ipratropium bromide 21 mcg (0.03 2 spray intranasal BEDTIME 10/21/20 02/25/22 10/08/21 21:00 History %) nasal spray levothyroxine 88 mcg tablet 88 mcg PO DAILY@102910/21/20 02/25/22 02/25/22 History lacosamide 10 mg/mL oral solution 100 mg PO BEDTIME@202910/09/21 02/25/22 02/24/22 History (Vimpat) levalbuterol HCl 1.25 mg/3 mL 1.25 mg inhalation Q8H PRN Wheezing 10/09/21 02/25/22 10/08/21 21:00 History solution for nebulization levetiracetam 100 mg/mL oral 1,350 mg PO BEDTIME@202910/09/21 02/25/22 02/24/22 History solution (Keppra) levetiracetam 100 mg/mL oral 200 mg DAILY@89910/09/21 02/25/22 02/25/22 History solution (Keppra) omeprazole magnesium 2.5 mg oral 2.5 mg PO DAILY 10/09/21 02/25/22 02/25/22 History suspension,delayed release acetaminophen 325 mg tablet 650 mg PO BEDTIME 02/25/22 02/25/22 02/24/22 History (Tylenol) dextromethorphan-guaifenesin 5 10 ml PO Q4H PRN Cough 02/25/22 02/25/22 Unknown History mg-100 mg/5 mL oral liquid (Mucinex Fast-Max DM Max) lamotrigine 25 mg chewable 25 mg PO BID 02/25/22 02/25/22 02/25/22 History dispersible tablet levetiracetam 100 mg/mL oral 50 mg PO DAILY PRN Seizure Activity 02/25/22 02/25/22 Unknown History solution levetiracetam 100 mg/mL oral 50 mg PO DAILY@0400 02/25/22 02/25/22 Unknown History solution lidocaine HCl 4 % topical cream 1 appl topical QID PRN Pain 02/25/22 02/25/22 02/25/22 History (Aspercreme (lidocaine HCl)) midazolam 5 mg/spray (0.1 mL) 5 mg intranasal DAILY PRN Seizure 02/25/22 02/25/22 Unknown History nasal spray (Nayzilam) Activity nystatin 100,000 unit/gram topical 1 appl topical TID 02/25/22 02/25/22 02/25/22 History cream polyethylene glycol 3350 17 gram 17 g PO DAILY 02/25/22 02/25/22 02/25/22 History oral powder packet (Miralax) Physical Exam Vital Signs and Narrative: Vital Signs: Last Vital Signs Temp 99.1 F 02/28/22 12:00 Pulse 67 02/28/22 16:00 Resp 17 02/28/22 16:00 BP 122/60 02/28/22 16:00 Pulse Ox 100 02/28/22 16:00 O2 Del Method 02/28/22 16:00 O2 Flow Rate 3 02/28/22 15:00 BMI result Body Mass Index 29.5 Awakens to voice and gentle tactile stimulation. Responds with her eyes but not verbally. Nurse enters the room to help roll the patient to right lateral decubitus position. Examination of the buttocks shows blanching and brisk capillary refill without areas of necrosis or ecchymosis. This is after removal of two goopy, wet foam border dressings adjacently placed which were loaded with gobs of zinc oxide prior to being placed. The cleaned open area on the right buttock measures approximately 2.5 by 1.0 cm, is superficial with granulation and pink, healthy tissue. Some slough is observed over the wound bed. No periwound erythema, streaking or warmth to suggest cellulitis. The source of this skin breakdown is friction and shear, not pressure. Results Labs CBC and Chem 7: 02/28/22 05:18 02/28/22 05:18 Labs: Laboratory Results - last 24 hr 02/28/22 02/28/22 02/28/22 05:17 05:18 05:18 MCV 98.8 H MCH 32.1 MCHC 32.5 RDW 12.9 Plt Count 184 MPV 10.4 Immature Gran % (Auto) Cancelled Neut % (Auto) Cancelled Lymph % (Auto) Cancelled [place] % (Auto) Cancelled Eos % (Auto) Cancelled Baso % (Auto) Cancelled Lymph # (Auto) Cancelled [place] # (Auto) Cancelled Eos # (Auto) Cancelled Baso # (Auto) Cancelled Abs Immat Gran (auto) Cancelled Absolute Neuts (auto) Cancelled Absolute Nucleated RBC 0.000 Nucleated RBC % (auto) 0.0 Neutrophils % (Manual) 60 Band Neutrophils % 7 H Lymphocytes % (Manual) 15 L Monocytes % (Manual) 14 H Metamyelocytes % 2 Myelocytes % 1 Promyelocytes % 1 Abs Neuts (Manual) 3.1 Lymphocytes # (Manual) 0.7 L Monocytes # (Manual) 0.6 Metamyelocytes # 0.1 Platelet Estimate NORMAL Plt Morphology Comment NORMAL RBC Morphology NORMAL VBG pH 7.49 H VBG pCO2 35 VBG pO2 27 VBG HCO3 27 H VBG O2 Saturation 39.0 VBG Base Excess 4.5 Anion Gap 18 Estim Creat Clear Calc 73.6 Estimated GFR > 60 Random Glucose 123 H Calcium 8.5 Phosphorus 2.4 L Magnesium 1.7 Total Bilirubin 0.4 AST 32 H D ALT 17 Alkaline Phosphatase 141 H B-Natriuretic Peptide Total Protein 6.5 Albumin 3.4 L 02/28/22 05:18 MCV MCH MCHC RDW Plt Count MPV Immature Gran % (Auto) Neut % (Auto) Lymph % (Auto) [place] % (Auto) Eos % (Auto) Baso % (Auto) Lymph # (Auto) [place] # (Auto) Eos # (Auto) Baso # (Auto) Abs Immat Gran (auto) Absolute Neuts (auto) Absolute Nucleated RBC Nucleated RBC % (auto) Neutrophils % (Manual) Band Neutrophils % Lymphocytes % (Manual) Monocytes % (Manual) Metamyelocytes % Myelocytes % Promyelocytes % Abs Neuts (Manual) Lymphocytes # (Manual) Monocytes # (Manual) Metamyelocytes # Platelet Estimate Plt Morphology Comment RBC Morphology VBG pH VBG pCO2 VBG pO2 VBG HCO3 VBG O2 Saturation VBG Base Excess Anion Gap Estim Creat Clear Calc Estimated GFR Random Glucose Calcium Phosphorus Magnesium Total Bilirubin AST ALT Alkaline Phosphatase B-Natriuretic Peptide 279 H Total Protein Albumin Imaging Radiologist's Impressions: Impressions Chest X-Ray 02/28/22 07:26 IMPRESSION: Worsening multifocal parahilar airspace and interstitial opacities as can be seen with pulmonary edema or multifocal pneumonia. Assessment and Plan (1) Unspecified skin changes: Status: Acute Plan 61-year-old female with unclear premorbid debility, history of Down's syndrome at risk for pressure injury, but not observed on the buttocks today. Recommend alginate with silver (Durafiber Ag) cut to fit this open area surrounded by copious zinc oxide for protection. Secondary dressing of gauze with Medipore could be changed every other day. Avoid foam dressings which harbor moisture and contribute to maceration of the buttocks. Other factors for nonhealing such as malnutrition, dermatitis and positional changes could be considered. Non wound condition of left medial thigh does not appear to be negatively affected by foam border dressing.
[2022-02-28] MEDS: Ipratropium Bromide Nas 0.03 % 30 ML SPRAY 2 SPRAY NOSTRIL-B (23:26)
[2022-03-01] VITALS (8 sets, daily range): BP systolic 95–138; BP diastolic 52–91; PULSE 70–84; RESP 16–20; TEMP 36.1–37.6; O2SAT 94–96; BMI 25.2; BMI 28.5
[2022-03-01] MEDS: Heparin Sodium,Porcine 5,000 UNIT/ML VIAL 5000 UNIT SUBCUT ×2 (01:24→13:57)
[2022-03-01] MEDS: Albumin Human 25 % 100 ML IV (03:25)
[2022-03-01] MEDS: Levothyroxine Sodium 100 MCG/5 ML VIAL 50 MCG IVPUSH (06:05)
[2022-03-01] MEDS: Pantoprazole Sodium 40 MG/10 ML VIAL IVPUSH (06:08)
[2022-03-01 06:45] LABS: MANUAL DIFF FLAG NO
[2022-03-01 06:52] LABS: Basophils Percent Auto 0.5 % (0-2); Eosinophils Percent Auto 0.2 % (0-4); Hematocrit 39.8 % (37.0-47.0); Hemoglobin 13.1 g/dl (12.0-16.0); Imm Gran Abs Auto 0.13 X10*3/uL (0.00-0.03); Imm Gran Pct Auto 2.9 % (0.0-0.4); Lymphocytes Absolute Auto 1.6 X10*3/uL (1.2-4.9); Lymphocytes Percent Auto 35.6 % (20-40); Mean Corpuscular HGB Conc 32.9 g/dl (31.0-35.0); Mean Corpuscular Hemoglobin 32.9 pg (27.0-33.0); Mean Platelet Volume 10.7 fL (9.4-12.3); Monocytes Absolute Auto 0.6 X10*3/uL (0.1-1.2); Neutrophils Absolute Auto 2.1 x10*3/uL (2.0-8.3); Neutrophils Percent Auto 46.8 % (45-73); Platelet Count 187 X10*3/uL (160-400); Red Blood Count 3.98 X10*6/uL (4.20-5.50); Red Cell Distribution Width 12.9 % (11.0-16.0); White Blood Count 4.4 X10*3/uL (4.8-10.8)
[2022-03-01 07:17] LABS: Albumin Level 4.9 g/dL (3.5-5.0); Anion Gap 19 (12-20); Blood Urea Nitrogen 8 mg/dL (9-16); Calcium 9.7 mg/dL (8.4-10.2); Carbon Dioxide 32 mmol/L (22-29); Chloride 100 mmol/L (96-108); Creatinine Clr Calc Pharmacy 59.3; Estimated Glomerular Filt Rate > 60; Glucose Random 88 mg/dL (60-115); Magnesium 1.9 mg/dL (1.6-2.6); Phosphorus 2.8 mg/dL (2.7-4.5); Potassium 3.1 mmol/L (3.3-5.1); Sodium 148 mmol/L (135-145)
[2022-03-01] MEDS: levETIRAcetam 250 MG in 0.9 % Sodium Chloride 100 ML 410 MG IV (09:23)
--- NOTE | 2022-03-01 11:40 | MHC.CLN ---
F/U PT WITH INCREASED NUTRITION RISK R/T PRESSURE INJURIES SEE FULL CLINICAL NUTRITION ASSESSMENT DATED 02/28/22 PT IS DAY 4 NPO MANAGER OF EMPLOYEE RELATIONS EVAL 02/28/22 RECOMMENDED PT REMAIN NPO WHEN DIET TO ADVANCE, RECOMMEND ADDING ENSURE BID TO INCREASE KCALS AND PROMOTE WOUND HEALING SUPP TO PROVIDE 700KCALS, 40G PROTEIN MONITOR PO INTAKE CLOSELY CONSULT RD IF PPN NEEDED
--- NOTE | 2022-03-01 12:43 | HO.PM.IMPN ---
Subjective Subjective Date of Service: 03/01/22 Interval History: To: Seen and evaluated this morning in her room Looks comfortable, on 2 L of oxygen Poor interaction and could not provide any meaningful history GEOSCIENCES PROFESSOR team evaluation, patient can start diet No other overnight events reported Review of Systems Unable to provide meaningful history Review of Systems: Yes Unobtainable due to mental status Physical Exam Vital Signs: Vital Signs: Last Vital Signs Temp 98 F 03/01/22 11:30 Pulse 70 03/01/22 11:30 Resp 18 03/01/22 11:30 BP 118/62 03/01/22 11:30 Pulse Ox 94 03/01/22 11:30 O2 Del Method 03/01/22 11:30 O2 Flow Rate 2 03/01/22 11:30 BMI result Body Mass Index 28.5 Const: Other: Constitutional : Alert with stimulation, nonverbal, not in distress Neck : Normal inspection, Supple Cardiovascular : RRR, no JVP, no lower extremity edema Respiratory : Decreased bilateral air entry, basal fine crackles, on oxygen supplement Gastrointestinal: soft, lax, Normal bowel sounds, Non tender Skin : Warm, Dry skin both feet Neurological : Alert , unable to assess orientation, No focal deficit Objective Data Active Medications Dexamethasone (Dexamethasone 6 Mg Tablet) 6 mg PO DAILY [facility] Heparin Sodium (Porcine) (Heparin Sodium,Porcine 5,000 Unit/Ml Vial) 5,000 unit SUBCUT Q12H [facility] Last Admin: 03/01/22 01:24 Dose: 5,000 unit Documented By: ALEXA Levetiracetam 250 mg/ Sodium (Chloride) 102.5 mls @ 410 mls/hr IV Q24H [facility] Last Infusion: 03/01/22 10:14 Dose: 0 mls/hr Documented By: JANINE Ceftriaxone Sodium 1 gm/ (Sodium Chloride) 50 mls @ 100 mls/hr IV Q24H [facility] Azithromycin 500 mg/ Sodium (Chloride) 250 mls @ 125 mls/hr IV Q24H [facility] Ipratropium [place] (Ipratropium [place] Praveen 0.03 % 30 Ml [place]) 2 spray NOSTRIL-B BEDTIME [facility] Last Admin: 02/28/22 23:26 Dose: 2 spray Documented By: LAEXA Lamotrigine (Lamotrigine 25 Mg Tablet) 25 mg PO BID [facility] Last Admin: 03/01/22 09:23 Dose: Not Given Documented By: JANINE Non-Admin Reason: NPO Levalbuterol HCl (Levalbuterol Hcl 1.25 Mg/0.5 Ml Vial.Neb) 1.25 mg INHALE Q8H PRN PRN Reason: Wheezing Levothyroxine Sodium (Levothyroxine Sodium 100 Mcg/5 Ml Vial) 50 mcg IVPUSH DAILY@0600 [facility] Last Admin: 03/01/22 06:05 Dose: 50 mcg Documented By: TAVIA Pt Own (Vimpat Liq (10 Mg/Ml)) 10 ml PO BEDTIME@2030 [facility] Last Admin: 02/28/22 22:46 Dose: Not Given Documented By: ALEXA Non-Admin Reason: NPO, confirmed with MD and ICU operations label clerk Pantoprazole Sodium (Pantoprazole Sodium 40 Mg/10 Ml Vial) 40 mg IVPUSH DAILY@0630 [facility] Last Admin: 03/01/22 06:08 Dose: 40 mg Documented By: TAVIA Pharmacy Consult (Consult Rx Perform Med Rec) 1 each MISCELLANE ONCE PRN PRN Reason: Consult order Labs CBC & Chem 7: 03/01/22 06:29 03/01/22 06:29 Labs: Laboratory Results - last 24 hr 03/01/22 03/01/22 06:29 06:29 MCV 100.0 H MCH 32.9 MCHC 32.9 RDW 12.9 Plt Count 187 MPV 10.7 Immature Gran % (Auto) 2.9 H Neut % (Auto) 46.8 Lymph % (Auto) 35.6 [place] % (Auto) 14.0 H Eos % (Auto) 0.2 Baso % (Auto) 0.5 Lymph # (Auto) 1.6 [place] # (Auto) 0.6 Eos # (Auto) 0.0 Baso # (Auto) 0.0 Abs Immat Gran (auto) 0.13 H Absolute Neuts (auto) 2.1 Absolute Nucleated RBC 0.000 Nucleated RBC % (auto) 0.0 Anion Gap 19 Estim Creat Clear Calc 59.3 Estimated GFR > 60 Random Glucose 88 Calcium 9.7 D Phosphorus 2.8 Magnesium 1.9 Albumin 4.9 D Microbiology Microbiology Results: Microbiology 02/26/22 00:25 Gram Stain - Final Sputum - Suctioned Sputum Culture - Final Staphylococcus aureus 02/25/22 20:28 Blood Culture - Final Blood - Venous Staphylococcus aureus Assessment and Plan (1) LEONIE on CPAP: Status: Acute (2) Pneumonia due to COVID-19 virus: Status: Acute (3) Pneumonia: Status: Acute (4) Acute hypoxemic respiratory failure: Status: Acute Plan 61 years old lady with Down syndrome, advanced dementia, dysphagia, LEONIE on CPAP, seizure disorder who presented to the hospital with COVID-19 infection hypoxia requiring ICU admission for hypotension. Did not require intubation. Treated with IV antibiotics which later discontinued. Acute hypoxic respiratory failure 2/2 COVID-19 infection, likely post COVID bacterial pneumonia Could not get Paxlovid because of dysphagia and altered mentation Hold on steroid therapy as the patient has been the hospital for 5 days by now Repeated CXR yesterday showing worsening infiltrates Restart antibiotics of azithromycin and ceftriaxone Negative cultures Wean oxygen down as tolerated Received Lasix in ICU for fluid overload Swallowing problem evaluated by GEOSCIENCES PROFESSOR Modified diet Buttock wound Not related to pressure, likely friction and shear Local measures, using zinc oxide and silver alginate Seizure disorder continue Lamictal, Keppra and Vimpat 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 Quality Stroke Does the patient have a stroke diagnosis?: No VTE Prior VTE?: No VTE Risk Level:: Medical - low VTE Device Contraindication: N/A - Device Ordered VTE Drug Contraindication: N/A - Med Ordered
[2022-03-01] MEDS: cefTRIAXone sodium 1 GM in 0.9 % Sodium Chloride 50 ML IV (13:57)
[2022-03-01] MEDS: Azithromycin 500 MG in 0.9 % Sodium Chloride 250 ML 125 MG IV (14:53)
--- NOTE | 2022-03-01 17:40 | PC.NURSE ---
pt had persaud catheter removed earlier today and was DTV at 1200. At 1200, there was no urine. A bladder scan was performed, showing 95 mL of urine. The patient had been strict NPO previously
--- NOTE | 2022-03-01 17:51 | MHC.SL.SWA ---
Speech Pathologist Impression: Risk of Aspiration Due to: History of Pneumonia Reduced Cognition Dysphasia Diet Status: Liquid Consistency and Strategies for Safe Swallow: Liquid Intake Recommendation: Honey Thick Liquid Intake Strategies: Liquids by Teaspoon Only Solid Food Consistency: Dietary Recommendations: Pureed (NDD1) Additional Modifications to Solid Foods: Blend sauces/gravies into puree (single consistency). Patient will require one to one feed. Monitor that patient has swallowed food or liquid before presenting more, monitor for pocketing/pausing and cue to swallow. All liquid/puree by TSP only. Assure that patient is alert and engaged in meal, discontinue if clinical signs of aspiration, disengagement, excessing pocketing/pausing after having food in mouth. Oral Medication Intake: Crushed with Puree Please contact the pharmacy regarding appropriate crushable or liquid drug formulations that are available whenever modified delivery is recommended. Compensatory Strategies and Precautions to be Taken for Safe Swallow: Sitting Upright (90 deg) No Straw Liquids from Spoon Small Bites and Sips Alternate Liquids/Solids Rate of Ingestion Change Oral Check Supervision While Eating and Drinking for Safe Swallow: Total Assistance (1:1) Foods to Avoid: Blend sauces/gravies into puree (single consistency) Swallowing Recommended Treatments: Gustatory Stimulation Compens. Strategy Educat. Recommendation for Speech: Inpatient Speech Therapy Comment: Pt seen this am, now on Medical Floor in [facility] Room. Patient was awake, had just been repositioned by PATIENT CARE TECHNICIAN to be seated upright for this assessment. Patient is non-verbal, did not follow any verbal directions. Patient noted to have very dry mouth and tongue, was initially given oral care. Patient was very responsive to oral swab, manipulating it with tongue, periodically initiating swallow on trace amounts of liquid. Patient then given Honey thick liquid by spoon, produced a disorganized oral pattern that included tongue pumping, initiated swallow after mild delay with laryngeal elevation palpated. Pt. given puree consistency with similar disorganized oral pattern, mild delay initiating swallow. On repeat presentations of puree, patient noted to episodically pause/pocket with food in mouth, appeared mildly responsive to cues/encouragement to swallow. No clinical signs of aspiration noted during trials of PUREE with HONEY THICK LIQUIDS by spoon. Recommend UPGRADE/START diet at these consistencies, with PILLS CRUSHED in PUREE. Patient will require one to one feed. Monitor that patient has swallowed food or liquid before presenting more, monitor for pocketing/pausing and cue to swallow. All liquid/puree by TSP only. Assure that patient is alert and engaged in meal, discontinue if clinical signs of aspiration, disengagement, excessing pocketing/pausing after having food in mouth. , RD notified of upgrade by [place] [employer], nursing notified in person. [facility] [employer] [employer] will continue to follow. Frequency/Duration: Date Range for Service Req: Timeline to reassess: Stave Cutter Clinican/Clinical Fellow: No Supervisory Statement: I have reviewed and agree with the student/clinical fellow's documentation: N/A Speech Language Pathologist: Juanita Hamlin M.A., CCC-[facility]
[2022-03-01] MEDS: lamoTRIgine 25 MG TABLET PO (21:03)
[2022-03-01] MEDS: Ipratropium Bromide Nas 0.03 % 30 ML SPRAY 2 SPRAY NOSTRIL-B (21:07)
[2022-03-02] VITALS (7 sets, daily range): BP systolic 106–168; BP diastolic 55–78; PULSE 62–80; RESP 16–18; TEMP 36–37.1; O2SAT 93–98; BMI 28.5
[2022-03-02] MEDS: Heparin Sodium,Porcine 5,000 UNIT/ML VIAL 5000 UNIT SUBCUT ×2 (01:30→12:56)
[2022-03-02] MEDS: Levothyroxine Sodium 100 MCG/5 ML VIAL 50 MCG IVPUSH (06:28)
[2022-03-02 07:18] LABS: Hematocrit 42.1 % (37.0-47.0); Hemoglobin 13.9 g/dl (12.0-16.0); Mean Platelet Volume 10.7 fL (9.4-12.3); Platelet Count 195 X10*3/uL (160-400); Red Blood Count 4.21 X10*6/uL (4.20-5.50); White Blood Count 4.7 X10*3/uL (4.8-10.8)
[2022-03-02 07:56] LABS: C Reactive Protein 5.55 mg/dL (< or = 0.50); Lactate Dehydrogenase 243 U/L (122-220)
[2022-03-02 08:05] LABS: Anion Gap 18 (12-20); Blood Urea Nitrogen 13 mg/dL (9-16); Calcium 9.4 mg/dL (8.4-10.2); Carbon Dioxide 30 mmol/L (22-29); Chloride 104 mmol/L (96-108); Creatinine Clr Calc Pharmacy 67.7; Estimated Glomerular Filt Rate > 60; Glucose Random 100 mg/dL (60-115); Sodium 149 mmol/L (135-145)
[2022-03-02 09:56] LABS: Folate 9.7 ng/mL (> or = 4.0); Vitamin B12 331 pg/mL (200-900)
[2022-03-02] MEDS: Potassium Chloride Packet 20 MEQ PACKET 40 MEQ PO (10:40)
[2022-03-02] MEDS: levETIRAcetam 250 MG in 0.9 % Sodium Chloride 100 ML 410 MG IV (10:40)
[2022-03-02] MEDS: lamoTRIgine 25 MG TABLET PO ×2 (10:40→20:29)
[2022-03-02] MEDS: Dextrose 5 % 1,000 ML 125 ML IVCONT ×2 (11:01→18:16)
--- NOTE | 2022-03-02 11:11 | MHC.CM.PN ---
Female 61 DX Covid+, Hypotension Per MD rounds no dc today. Patient is lethargic with poor po intake. DP return home with [facility] and [facility], via BLS.
--- NOTE | 2022-03-02 12:08 | MHC.CLN ---
F/U PT'S DIET ADVANCED TO PUREED WITH HT LIQ PER BRAZER ELECTRONIC PT RECEIVING ENSURE BID TO INCREASE KCALS AND PROMOTE WOUND HEALING SUPP PROVIDES 700KCALS, 40G PROTEIN MD REPORTED POOR PO INTAKE TODAY MONITOR PO INTAKE CLOSELY
[2022-03-02] MEDS: cefTRIAXone sodium 1 GM in 0.9 % Sodium Chloride 50 ML IV (13:08)
--- NOTE | 2022-03-02 13:22 | P.PNIM_ITS ---
Subjective Subjective Date of Service: 03/02/22 Interval History: cc: weakness interval history:lethargic, non verbal Review of Systems Review of Systems: Yes Unobtainable due to mental status Physical Exam Vital Signs: Vital Signs: Last Vital Signs Temp 96.8 F 03/02/22 11:29 Pulse 62 03/02/22 11:29 Resp 16 03/02/22 11:29 BP 106/55 L 03/02/22 11:29 Pulse Ox 94 03/02/22 11:29 O2 Del Method 03/02/22 11:29 O2 Flow Rate 2 03/02/22 11:29 BMI result Body Mass Index 28.5 General: lethargic, non verbal, trisomy 21 phenotype Resp: diminished bilateral, no accessory muscles used CVS: S1,S2,RRR GI: soft, non tender, non distended Neuro: motor grossly intact, alert Psych: impaired insight Objective Data Active Medications Enoxaparin Sodium (Enoxaparin Sodium 40 Mg/0.4 Ml Syringe) 40 mg SUBCUT Q24H [facility] Last Admin: 03/02/22 13:10 Dose: Not Given Documented By: RAO Non-Admin Reason: heparin given today Levetiracetam 250 mg/ Sodium (Chloride) 102.5 mls @ 410 mls/hr IV Q24H [facility] Last Infusion: 03/02/22 11:02 Dose: 0 mls/hr Documented By: RAO Dextrose (D5w) 1,000 mls @ 125 mls/hr IVCONT .Q8H [facility] Last Admin: 03/02/22 11:01 Dose: 125 mls/hr Documented By: RAO Vancomycin HCl 1,000 mg/ (Sodium Chloride) 270 mls @ 270 mls/hr IV Q12H [facility] Vancomycin HCl 1,500 mg/ (Sodium Chloride) 500 mls @ 333.333 mls/hr IV ONCE ONE Stop: 03/02/22 14:44 Ipratropium [place] (Ipratropium [place] Praveen 0.03 % 30 Ml [place]) 2 spray NOSTRIL-B BEDTIME [facility] Last Admin: 03/01/22 21:07 Dose: 2 spray Documented By: NICHOLAS Lamotrigine (Lamotrigine 25 Mg Tablet) 25 mg PO BID [facility] Last Admin: 03/02/22 10:40 Dose: 25 mg Documented By: RAO Levalbuterol HCl (Levalbuterol Hcl 1.25 Mg/0.5 Ml Vial.Neb) 1.25 mg INHALE Q8H PRN PRN Reason: Wheezing Levothyroxine Sodium (Levothyroxine Sodium 100 Mcg/5 Ml Vial) 50 mcg IVPUSH DAILY@0600 [facility] Last Admin: 03/02/22 06:28 Dose: 50 mcg Documented By: NICHOLAS Pt Own (Vimpat Liq (10 Mg/Ml)) 10 ml PO BEDTIME@2030 [facility] Last Admin: 03/01/22 21:02 Dose: 10 ml Documented By: NICHOLAS Omeprazole (Omeprazole 20 Mg/10 Ml Susp.Recon) 20 mg PO DAILY@0630 [facility] Last Admin: 03/02/22 10:37 Dose: Not Given Documented By: RAO Non-Admin Reason: prev shift Pharmacy Consult (Consult Rx Perform Med Rec) 1 each MISCELLANE ONCE PRN PRN Reason: Consult order Pharmacy Consult (Consult Rx Vancomycin Dosing) 1 each MISCELLANE DAILY PRN PRN Reason: Consult order Labs CBC & Chem 7: 03/02/22 06:38 03/02/22 06:38 Labs: Laboratory Results - last 24 hr 03/02/22 03/02/22 03/02/22 06:38 06:38 06:38 MCV 100.0 H MCH 33.0 MCHC 33.0 RDW 13.0 Plt Count 195 MPV 10.7 Absolute Nucleated RBC 0.000 Nucleated RBC % (auto) 0.0 Anion Gap 18 Estim Creat Clear Calc 67.7 Estimated GFR > 60 Random Glucose 100 Calcium 9.4 Lactate Dehydrogenase 243 H C-Reactive Protein 5.55 H Vitamin B12 Folate 03/02/22 06:38 MCV MCH MCHC RDW Plt Count MPV Absolute Nucleated RBC Nucleated RBC % (auto) Anion Gap Estim Creat Clear Calc Estimated GFR Random Glucose Calcium Lactate Dehydrogenase C-Reactive Protein Vitamin B12 331 Folate 9.7 Assessment and Plan (1) LEONIE on CPAP: Status: Acute (2) Pneumonia due to COVID-19 virus: Status: Acute (3) Pneumonia: Status: Acute (4) Acute hypoxemic respiratory failure: Status: Acute Plan 61 years old lady with Down syndrome, advanced dementia, dysphagia, LEONIE on CPAP, seizure disorder who presented to the hospital with COVID-19 infection hypoxia requiring ICU admission for hypotension. Did not require intubation. 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
[2022-03-02] MEDS: vancomycin HCL 1,500 MG in 0.9 % Sodium Chloride 500 ML 333.33 MG IV (13:23)
--- NOTE | 2022-03-02 15:08 | W.PM.IDCN ---
History of Present Illness Data of Consult Service Date: 03/02/22 Requesting physician: Jacob Black Primary Care Provider: Ramesh Stratton MD HPI Reason for consult: bacteremia She presents with shortness of breath and cough. She couldnt protect airway and went to ICU,XRay diffuse infiltrates She has MSSA bacteremia and shortness of breath PCN Review of Systems Review of Systems: Yes Unobtainable due to mental condition [facility] Past Medical History Medical History (Updated 03/02/22 @ 15:11 by Emelyn Sharpe MD) Aspiration into airway Aspiration pneumonia Dementia Down syndrome Down syndrome Dysphagia Dysphagia causing pulmonary aspiration with swallowing Epilepsy Hypoxemia LEONIE on CPAP Pneumonia Respiratory distress Toxic metabolic encephalopathy Family History Family history: reviewed and not pertinent Social History Social History Household Members: Other Household Members Other:: sister Housing: House Do you presently have visiting nurse or other home services: No (recently discharged from [facility]: PT, OT, nurse on 02/08) Patient Tobacco Use Status: Never used Tobacco service: No Current occupational status: disabled Meds Allergies Allergy/AdvReac Type Severity Reaction Status Date / Time fentanyl [FENTANYL] Allergy Intermediate UNKNOWN Verified 10/26/21 17:17 codeine [CODEINE] Allergy Unknown UNKNOWN Verified 10/26/21 17:17 lorazepam [From ATIVAN] Allergy Unknown UNKNOWN Verified 10/26/21 17:17 oxcarbazepine [OXCARBAZEPINE] Allergy Unknown UNKNOWN Verified 10/26/21 17:17 penicillin V Allergy Unknown Unknown Verified 10/26/21 17:17 Penicillins [PENICILLINS] Allergy Unknown DIFFICULTY Verified 10/26/21 17:17 BREATHING Sulfa (Sulfonamide Allergy Unknown DIFFICULTY Verified 10/26/21 17:17 Antibiotics) BREATHING [SULFA (SULFONAMIDE ANTIBIOTICS)] levofloxacin [From LEVAQUIN] AdvReac Intermediate hallucinati Verified 10/26/21 17:17 ons Active Medications: Current Medications Enoxaparin Sodium (Enoxaparin Sodium 40 Mg/0.4 Ml Syringe) 40 mg SUBCUT Q24H [facility] Last Admin: 03/02/22 13:10 Dose: Not Given Levetiracetam 250 mg/ Sodium (Chloride) 102.5 mls @ 410 mls/hr IV Q24H [facility] Last Infusion: 03/02/22 11:02 Dose: Infused Dextrose (D5w) 1,000 mls @ 125 mls/hr IVCONT .Q8H [facility] Last Admin: 03/02/22 11:01 Dose: 125 mls/hr Vancomycin HCl 1,000 mg/ (Sodium Chloride) 270 mls @ 270 mls/hr IV Q12H [facility] Ipratropium [place] (Ipratropium [place] Praveen 0.03 % 30 Ml [place]) 2 spray NOSTRIL-B BEDTIME [facility] Last Admin: 03/01/22 21:07 Dose: 2 spray Lamotrigine (Lamotrigine 25 Mg Tablet) 25 mg PO BID [facility] Last Admin: 03/02/22 10:40 Dose: 25 mg Levalbuterol HCl (Levalbuterol Hcl 1.25 Mg/0.5 Ml Vial.Neb) 1.25 mg INHALE Q8H PRN PRN Reason: Wheezing Levothyroxine Sodium (Levothyroxine Sodium 100 Mcg/5 Ml Vial) 50 mcg IVPUSH DAILY@0600 [facility] Last Admin: 03/02/22 06:28 Dose: 50 mcg Pt Own (Vimpat Liq (10 Mg/Ml)) 10 ml PO BEDTIME@2029 [facility] Last Admin: 03/01/22 21:02 Dose: 10 ml Omeprazole (Omeprazole 20 Mg/10 Ml Susp.Recon) 20 mg PO DAILY@0630 [facility] Last Admin: 03/02/22 10:37 Dose: Not Given Pharmacy Consult (Consult Rx Perform Med Rec) 1 each MISCELLANE ONCE PRN PRN Reason: Consult order Pharmacy Consult (Consult Rx Vancomycin Dosing) 1 each MISCELLANE DAILY PRN PRN Reason: Consult order Home Medications Medication Instructions Recorded Confirmed Last Taken Type donepezil 5 mg disintegrating 5 mg PO DAILY@219910/21/20 02/25/22 10/08/21 21:00 History tablet ipratropium bromide 21 mcg (0.03 2 spray intranasal BEDTIME 10/21/20 02/25/22 10/08/21 21:00 History %) nasal spray levothyroxine 88 mcg tablet 88 mcg PO DAILY@102910/21/20 02/25/22 02/25/22 History lacosamide 10 mg/mL oral solution 100 mg PO BEDTIME@202910/09/21 02/25/22 02/24/22 History (Vimpat) levalbuterol HCl 1.25 mg/3 mL 1.25 mg inhalation Q8H PRN Wheezing 10/09/21 02/25/22 10/08/21 21:00 History solution for nebulization levetiracetam 100 mg/mL oral 1,350 mg PO BEDTIME@2030 10/09/21 02/25/22 02/24/22 History solution (Keppra) levetiracetam 100 mg/mL oral 200 mg DAILY@0900 10/09/21 02/25/22 02/25/22 History solution (Keppra) omeprazole magnesium 2.5 mg oral 2.5 mg PO DAILY 10/09/21 02/25/22 02/25/22 History suspension,delayed release acetaminophen 325 mg tablet 650 mg PO BEDTIME 02/25/22 02/25/22 02/24/22 History (Tylenol) dextromethorphan-guaifenesin 5 10 ml PO Q4H PRN Cough 02/25/22 02/25/22 Unknown History mg-100 mg/5 mL oral liquid (Mucinex Fast-Max DM Max) lamotrigine 25 mg chewable 25 mg PO BID 02/25/22 02/25/22 02/25/22 History dispersible tablet levetiracetam 100 mg/mL oral 50 mg PO DAILY PRN Seizure Activity 02/25/22 02/25/22 Unknown History solution levetiracetam 100 mg/mL oral 50 mg PO DAILY@0400 02/25/22 02/25/22 Unknown History solution lidocaine HCl 4 % topical cream 1 appl topical QID PRN Pain 02/25/22 02/25/22 02/25/22 History (Aspercreme (lidocaine HCl)) midazolam 5 mg/spray (0.1 mL) 5 mg intranasal DAILY PRN Seizure 02/25/22 02/25/22 Unknown History nasal spray (Nayzilam) Activity nystatin 100,000 unit/gram topical 1 appl topical TID 02/25/22 02/25/22 02/25/22 History cream polyethylene glycol 3350 17 gram 17 g PO DAILY 02/25/22 02/25/22 02/25/22 History oral powder packet (Miralax) Physical Exam Vital Signs: Vital Signs: Last Vital Signs Temp 96.8 F 03/02/22 11:29 Pulse 62 03/02/22 11:29 Resp 16 03/02/22 11:29 BP 106/55 L 03/02/22 11:29 Pulse Ox 94 03/02/22 11:29 O2 Del Method 03/02/22 11:29 O2 Flow Rate 2 03/02/22 11:29 BMI result Body Mass Index 28.5 Const: General: cooperative Resp: Effort & Inspection: normal respiratory effort Cardio: Rate: regular rate Rhythm: regular rhythm Extrem: General: Yes normal to inspection Results Labs CBC & Chem 7: 03/02/22 06:38 03/02/22 06:38 Labs: Short CBC 03/02/22 Range/Units 06:38 WBC 4.7 L (4.8-10.8) X10*3/uL Hgb 13.9 (12.0-16.0) g/dl Hct 42.1 (37.0-47.0) % Plt Count 195 (160-400) X10*3/uL BMP 03/02/22 06:38 Sodium 149 H Potassium 3.0 L Chloride 104 Carbon Dioxide 30 H BUN 13 D Creatinine 0.68 Calcium 9.4 Microbiology Microbiology Results: Microbiology 02/26/22 00:25 Sputum - Suctioned Gram Stain - Final 02/26/22 00:25 Sputum - Suctioned Sputum Culture - Final Staphylococcus aureus 02/25/22 20:28 Blood - Venous Blood Culture - Final Staphylococcus aureus 02/25/22 20:24 Blood - Venous Blood Culture - Preliminary No growth after 48 hours. Assessment and Plan (1) MSSA bacteremia: Status: Acute THis is possibly from pneumonia. She has no other symptoms ALL PCN so likely cant give cephalosporin as well COVID positive no symptom Plan Vancomycin for four weeks likely Echo
--- NOTE | 2022-03-02 15:23 | PHA.PROG ---
Admission Date/Time: February 26, 2022 00:21 Indication: Bactermia Weight in k kg Adjusted body weight in Kg: N/A patent < 5ft [place] body weight in Kg: Obesity Dosing Indication % IBW: Serum Creatinine - Last 168 Hours 02/25/22 02/26/22 02/27/22 20:28 05:38 00:02 Creatinine 0.78 0.65 0.73 02/27/22 02/28/22 03/01/22 05:08 05:18 06:29 Creatinine 0.70 0.64 0.73 03/02/22 06:38 Creatinine 0.68 Estimated CrCl and GFR - Last 168 Hours 02/25/22 02/26/22 02/27/22 20:28 05:38 00:02 Estim Creat Clear Calc 60.8 72.9 66.6 Estimated GFR > 60 > 60 > 60 02/27/22 02/28/22 03/01/22 05:08 05:18 06:29 Estim Creat Clear Calc 69.5 73.6 59.3 Estimated GFR > 60 > 60 > 60 03/02/22 06:38 Estim Creat Clear Calc 67.7 Estimated GFR > 60 Vancomycin Loading Dose: 1500 mg Q24H Current Vancomycin Dosing Regimen: 1000 mg Q12H Date and Time for next Vancomycin Level to be drawn: 03/03 @ 1200 Pharmacist Comments on Vancomycin Plan: Patient scheduled loading dose for vancomycin 1500 mg. Maintenance dose to begin 03/03 @ 0200. Expected AUC 579 with a trough of 17.9. Trough to be drawn prior to 3rd dose so that pharmacy can review trough and access for safety. Pharmacy to monitor renal function daily. Ijeoma Bird PharmD Vancomycin dosing will take advantage of [employer] as a clinical decision support tool that uses Bayesian modeling to calculate individual patient's pharmacokinetic parameters and forecast the patient's drug concentration time course with the target goal AUC 24 range of 400 - 600 mg/L/hr.
--- NOTE | 2022-03-02 16:08 | MHC.SL.SWA ---
Speech Pathologist Impression: Oropharyngeal dysphagia Risk of Aspiration Due to: History of Pneumonia Reduced Cognition Dysphasia Diet Status: Downgrade Liquid Consistency and Strategies for Safe Swallow: Liquid Intake Recommendation: NPO Solid Food Consistency: Dietary Recommendations: NPO Additional Modifications to Solid Foods: Rigorous oral care routine, ensure mouth is moisturized. Maintain upright at least 30 degrees to decrease risk of microaspiration. Plan to re-evaluate tomorrow. Oral Medication Intake: NPO Please contact the pharmacy regarding appropriate crushable or liquid drug formulations that are available whenever modified delivery is recommended. Supervision While Eating and Drinking for Safe Swallow: PO with CRM BUSINESS ANALYST Swallowing Recommended Treatments: Gustatory Stimulation, Compens. Strategy Educat. Recommendation for Speech: Inpatient Speech Therapy [place]er [place]uer Clinican/Clinical Fellow: No Supervisory Statement: I have reviewed and agree with the student/clinical fellow's documentation: N/A Speech Language Pathologist: Dayana Yu M.A., CCC-CRM BUSINESS ANALYST
[2022-03-02] MEDS: Remdesivir 200 MG in 0.9 % Sodium Chloride 210 ML 105 MG IV (18:28)
--- NOTE | 2022-03-02 18:48 | PC.NURSE ---
Pt non verbal and bedrest at baseline. 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 K of 3.0 at 0847, aware. New orders for PO potassium and fluids given per AUG. Repo q2. Sister Denise called and updated. She requests the staff call her number while in the pt room so pt can hear her voice and sister can talk to her over the phone. pt currently on phone with sister. call belle in place, bed alarm on, safety precautions taken.
[2022-03-02] MEDS: Ipratropium Bromide Nas 0.03 % 30 ML SPRAY 2 SPRAY NOSTRIL-B (20:29)
[2022-03-03] MEDS: Dextrose 5 % 1,000 ML 125 ML IVCONT (02:06)
[2022-03-03] MEDS: vancomycin HCL 1,000 MG in 0.9 % Sodium Chloride 250 ML 270 MG IV (02:07)
[2022-03-03 03:14] VITALS: BP 143/85; PULSE 85; RESP 20; TEMP 36.4; O2SAT 95
[2022-03-03] MEDS: Levothyroxine Sodium 100 MCG/5 ML VIAL 50 MCG IVPUSH (05:38)
[2022-03-03 06:09] VITALS: BMI 31.0
[2022-03-03 06:58] LABS: Hematocrit 39.3 % (37.0-47.0); Hemoglobin 13.1 g/dl (12.0-16.0); Mean Corpuscular HGB Conc 33.3 g/dl (31.0-35.0); Mean Corpuscular Hemoglobin 32.9 pg (27.0-33.0); Mean Corpuscular Volume 98.7 fL (80.0-98.0); Platelet Count 176 X10*3/uL (160-400); Red Blood Count 3.98 X10*6/uL (4.20-5.50); Red Cell Distribution Width 12.9 % (11.0-16.0); White Blood Count 4.3 X10*3/uL (4.8-10.8)
[2022-03-03 07:17] LABS: Anion Gap 18 (12-20); Blood Urea Nitrogen 9 mg/dL (9-16); Calcium 8.5 mg/dL (8.4-10.2); Carbon Dioxide 27 mmol/L (22-29); Chloride 101 mmol/L (96-108); Creatinine Clr Calc Pharmacy 77.4; Estimated Glomerular Filt Rate > 60; Glucose Fasting 128 mg/dL (60-99); Magnesium 1.6 mg/dL (1.6-2.6); Potassium 2.9 mmol/L (3.3-5.1); Sodium 143 mmol/L (135-145)
[2022-03-03 08:00] VITALS: BP 108/70; PULSE 72; RESP 20; TEMP 36.2; O2SAT 94
[2022-03-03] MEDS: Potassium Chloride Packet 20 MEQ PACKET 40 MEQ PO (09:47)
[2022-03-03] MEDS: dexAMETHasone sod phosphate 4 MG/ML VIAL 6 MG IVPUSH (09:48)
[2022-03-03] MEDS: Magnesium Oxide 400 MG TABLET PO ×2 (09:48→17:58)
[2022-03-03] MEDS: lamoTRIgine 25 MG TABLET PO ×2 (09:48→21:23)
[2022-03-03] MEDS: Sodium Chloride 0.45 % 1,000 ML 80 ML IVCONT ×2 (09:52→21:24)
[2022-03-03] MEDS: levETIRAcetam 250 MG in 0.9 % Sodium Chloride 100 ML 410 MG IV (10:48)
--- NOTE | 2022-03-03 11:10 | HO.PM.IMPN ---
Subjective Subjective Date of Service: 03/03/22 Interval History: cc: weakness interval history:more alert today, non verbal Review of Systems Review of Systems: Yes Unobtainable due to mental status Physical Exam Vital Signs: Vital Signs: Last Vital Signs Temp 97.1 F 03/03/22 08:00 Pulse 72 03/03/22 08:00 Resp 20 03/03/22 08:00 BP 108/70 03/03/22 08:00 Pulse Ox 94 03/03/22 08:00 O2 Del Method 03/03/22 08:00 O2 Flow Rate 2.5 03/03/22 08:00 BMI result Body Mass Index 31.0 General: alert, non verbal, trisomy 21 phenotype Resp: diminished bilateral, no accessory muscles used CVS: S1,S2,RRR GI: soft, non tender, non distended Neuro: motor grossly intact, alert Psych: impaired insight Objective Data Active Medications Dexamethasone Sodium Phosphate (Dexamethasone Sod Phosphate 4 Mg/Ml Vial) 6 mg IVPUSH DAILY [facility] Last Admin: 03/03/22 09:48 Dose: 6 mg Documented By: NIKOLAI Enoxaparin Sodium (Enoxaparin Sodium 40 Mg/0.4 Ml Syringe) 40 mg SUBCUT Q24H [facility] Last Admin: 03/02/22 13:10 Dose: Not Given Documented By: RAO Non-Admin Reason: heparin given today Levetiracetam 250 mg/ Sodium (Chloride) 102.5 mls @ 410 mls/hr IV Q24H [facility] Last Admin: 03/03/22 10:48 Dose: 410 mls/hr Documented By: NIKOLAI Vancomycin HCl 1,000 mg/ (Sodium Chloride) 270 mls @ 270 mls/hr IV Q12H [facility] Last Infusion: 03/03/22 03:37 Dose: 0 mls/hr Documented By: MARTÍNEZ Remdesivir 100 mg/ Sodium (Chloride) 230 mls @ 115 mls/hr IV Q24H [facility] Stop: 03/06/22 19:59 Sodium Chloride (Sodium Chloride 0.45 %) 1,000 mls @ 80 mls/hr IVCONT .[id number] [facility] Last Admin: 03/03/22 09:52 Dose: 80 mls/hr Documented By: NIKOLAI Ipratropium [place] (Ipratropium [place] Praveen 0.03 % 30 Ml [place]) 2 spray NOSTRIL-B BEDTIME [facility] Last Admin: 03/02/22 20:29 Dose: 2 spray Documented By: AMNA Lamotrigine (Lamotrigine 25 Mg Tablet) 25 mg PO BID [facility] Last Admin: 03/03/22 09:48 Dose: 25 mg Documented By: NIKOLAI Levalbuterol HCl (Levalbuterol Hcl 1.25 Mg/0.5 Ml Vial.Neb) 1.25 mg INHALE Q8H PRN PRN Reason: Wheezing Levothyroxine Sodium (Levothyroxine Sodium 100 Mcg/5 Ml Vial) 50 mcg IVPUSH DAILY@0600 [facility] Last Admin: 03/03/22 05:38 Dose: 50 mcg Documented By: MARTÍNEZ Magnesium Oxide (Magnesium Oxide 400 Mg Tablet) 400 mg PO BIDPC [facility] Last Admin: 03/03/22 09:48 Dose: 400 mg Documented By: NIKOLAI Pt Own (Vimpat Liq (10 Mg/Ml)) 10 ml PO BEDTIME@2030 [facility] Last Admin: 03/02/22 20:30 Dose: Not Given Documented By: AMNA Non-Admin Reason: Med Not Available Omeprazole (Omeprazole 20 Mg/10 Ml Susp.Recon) 20 mg PO DAILY@0630 [facility] Last Admin: 03/03/22 05:38 Dose: 20 mg Documented By: MARTÍNEZ Pharmacy Consult (Consult Rx Perform Med Rec) 1 each MISCELLANE ONCE PRN PRN Reason: Consult order Pharmacy Consult (Consult Rx Vancomycin Dosing) 1 each MISCELLANE DAILY PRN PRN Reason: Consult order Labs CBC & Chem 7: 03/03/22 06:43 03/03/22 06:43 Labs: Laboratory Results - last 24 hr 03/03/22 03/03/22 06:43 06:43 MCV 98.7 H MCH 32.9 MCHC 33.3 RDW 12.9 Plt Count 176 MPV 11.0 Absolute Nucleated RBC 0.000 Nucleated RBC % (auto) 0.0 Anion Gap 18 Estim Creat Clear Calc 77.4 Estimated GFR > 60 Fasting Glucose 128 H Calcium 8.5 D Magnesium 1.6 Microbiology Microbiology Results: Microbiology 02/25/22 20:24 Blood Culture - Final Blood - Venous No growth after 5 days. Assessment and Plan (1) LEONIE on CPAP: Status: Acute (2) Pneumonia due to COVID-19 virus: Status: Acute (3) Pneumonia: Status: Acute (4) Acute hypoxemic respiratory failure: Status: Acute Plan 61 years old lady with Down syndrome, advanced dementia, dysphagia, LEONIE on CPAP, seizure disorder who presented to the hospital with COVID-19 infection hypoxia requiring ICU admission for hypotension. Did not require intubation. 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
[2022-03-03 11:48] VITALS: BP 112/56; PULSE 71; RESP 20; TEMP 36.2; O2SAT 96
[2022-03-03] MEDS: Enoxaparin Sodium 40 MG/0.4 ML SYRINGE SUBCUT (12:00)
[2022-03-03] MEDS: ceFAZolin Sodium/Dextrose,Iso 2 GM/50 ML PIGGYBACK IV ×2 (12:00→21:23)
[2022-03-03 15:37] VITALS: BP 152/69; PULSE 85; RESP 18; TEMP 37.1; O2SAT 96
[2022-03-03] MEDS: Remdesivir 100 MG in 0.9 % Sodium Chloride 230 ML 115 MG IV (17:59)
[2022-03-03 20:00] VITALS: BP 150/78; PULSE 77; RESP 18; TEMP 37; O2SAT 98
[2022-03-03] MEDS: Ipratropium Bromide Nas 0.03 % 30 ML SPRAY 2 SPRAY NOSTRIL-B (21:26)
[2022-03-03 23:51] VITALS: BP 101/67; PULSE 81; RESP 18; TEMP 36.6; O2SAT 96
[2022-03-04 04:00] VITALS: BP 106/58; PULSE 80; RESP 20; TEMP 36.8; O2SAT 96
[2022-03-04] MEDS: ceFAZolin Sodium/Dextrose,Iso 2 GM/50 ML PIGGYBACK IV ×3 (04:25→21:46)
[2022-03-04] MEDS: Levothyroxine Sodium 100 MCG/5 ML VIAL 50 MCG IVPUSH (05:12)
--- NOTE | 2022-03-04 07:00 | CA_ITS ---
Transthoracic Echocardiogram Patient (Last, First, Middle): Ann Marie Gold L Gender: Female Date of : 1960 Age: 61 Procedure Date: 03/04/2022 Procedure Type: Transthoracic Echocardiogram Location: [facility] [place] Height: 147.32 cm Weight: 61.69 kg BSA: 1.55 m2 Heart Rate: bpm BP: 118 / 60 mmHg Co Teacher: Referring MD: Jacob Black MD Symptoms: bacteremia Study Quality: Technically Difficult due to pt can't move ECG Rhythm: Sinus Conclusions: - Normal left ventricular size, thickness, systolic function, and wall motion. The visually estimated ejection fraction is between 55-60%. - E/E prime ratio is >15, consistent with elevated filling pressures. - Normal right ventricular cavity size and systolic function. - There is mild thickening of the aortic valve. There is no aortic valve stenosis. There is trace (trivial) aortic valve regurgitation. Findings Left Ventricle Normal left ventricular size, thickness, systolic function, and wall motion. The visually estimated ejection fraction is between 55-60%. Abnormal diastolic function is noted. Spectral Doppler is indicative of a pseudonormal filling pattern. E/E prime ratio is >15, consistent with elevated filling pressures. Right Ventricle Normal right ventricular cavity size and systolic function. Atria The left atrium is normal in size. Aortic Valve There is a normal trileaflet aortic valve. There is mild thickening of the aortic valve. There is no aortic valve stenosis. There is trace (trivial) aortic valve regurgitation. Mitral Valve The mitral valve appears normal. There is no mitral valve regurgitation. There is no mitral valve stenosis. Pulmonic Valve Normal pulmonic valve structure and function. There is trace pulmonic valve regurgitation. Tricuspid Valve Likely normal tricuspid valve structure and function. Tricuspid regurgitation envelope is inadequate for calculation of right ventricular systolic pressure. Normal right atrial pressure. Great Vessels All visible segments of the aorta are normal in size. The visualized portions of the pulmonary artery and branches are normal. Venous The inferior vena cava is normal in size and collapses greater than 50% with inspiration. Pericardium/Pleural There is no evidence of pericardial effusion. Prior Study Comparison No prior study available for comparison. Recommendations, Care & Conclusions Consider a GARCIA if clinically appropriate. Measurements 2D Linear Measurements IVSd: 0.85 0.6-0.9/0.6-1.0 cm LVIDd: 3.31 3.9-5.3/4.2-5.9 cm LVIDd Index: 2.14 2.4-3.2/2.2-3.1 cm/m2 LVIDs: 2.21 2.0-3.6 cm LVPWd: 0.84 0.7-1.1 cm Ao Root: 2.80 2.1-3.5 cm LA Diam: 2.40 2.7-3.8/3.0-4.0 cm LAIDs Index: 1.55 1.5-2.3 cm/m2 LV Mass: 92.05 67-162/88-224 g LV Mass Index: 59.39 43-95/49-115 g/m2 LVOT Diam: 2.00 3.0+(-)1.3 cm Mitral Valve MV Pk E: 1.02 MV PK A: 1.02 MV Decel Time: 226.00 E/A: 1.00 E'Lateral: 7.07 E'Medial: 5.44 E/E' Med: 18.80 E/E' Lat: 14.40 PHT: 66.00 MVA PHT: 3.33 Decel [place]: 4.50 Aortic Valve AoV Pk Donovan: 1.40 AoV Mn Donovan: 0.92 AoV VTI: 0.31 AoV Pk Grad: 8.00 Aov Mn Grad: 4.00 MARISA Cont.VTI: 1.74 LVOT LVOT Pk Donovan: 0.78 LVOT Mn Donovan: 0.55 LVOT VTI: 0.17 LVOT Pk Grad: 2.00 LVOT Mn Grad: 1.00 LVOT Diam: 2.00 LVOT Area: 3.14 Diastolic Function MV Pk E: 1.02 MV Pk A: 1.02 E/A: 1.00 E'Medial: 5.44 E/E' Med: 18.80 E' Laterial: 7.07 E/E' Lat: 14.40 Tricuspid Valve TR Pk Donovan: 1.26 TR Pk Grad: 6.00 RA Press: 3.00 RVSP: 9.00 Great Vessels Aorta Ao Root-2D: 2.80 2.0-3.7 cm Ao Asc: 2.60 2.1-3.4 cm Pulmonary Valve PV Pk Donovan: 0.99 Peak PV Grad: 4.00 Updated in Other Vendor System with Status of Final Ryan Durán MD electronically signed on 03/04/2022 6:50:53 PM with status of Final
[2022-03-04 07:19] LABS: Hematocrit 37.8 % (37.0-47.0); Hemoglobin 12.4 g/dl (12.0-16.0); Mean Corpuscular HGB Conc 32.8 g/dl (31.0-35.0); Mean Corpuscular Hemoglobin 32.5 pg (27.0-33.0); Mean Platelet Volume 11.8 fL (9.4-12.3); Platelet Count 198 X10*3/uL (160-400); Red Blood Count 3.82 X10*6/uL (4.20-5.50); Red Cell Distribution Width 12.8 % (11.0-16.0); White Blood Count 3.5 X10*3/uL (4.8-10.8)
[2022-03-04 07:34] LABS: Anion Gap 18 (12-20); Blood Urea Nitrogen 10 mg/dL (9-16); Calcium 8.6 mg/dL (8.4-10.2); Carbon Dioxide 25 mmol/L (22-29); Chloride 104 mmol/L (96-108); Estimated Glomerular Filt Rate > 60; Glucose Fasting 114 mg/dL (60-99); Potassium 3.4 mmol/L (3.3-5.1); Sodium 144 mmol/L (135-145)
[2022-03-04 08:00] VITALS: BP 138/68; PULSE 78; RESP 20; TEMP 36.2; O2SAT 97; BMI 28.0
[2022-03-04] MEDS: lamoTRIgine 25 MG TABLET PO ×2 (09:59→21:46)
[2022-03-04] MEDS: levETIRAcetam 250 MG in 0.9 % Sodium Chloride 100 ML 410 MG IV (09:59)
[2022-03-04] MEDS: Magnesium Oxide 400 MG TABLET PO ×2 (09:59→17:25)
[2022-03-04] MEDS: Sodium Chloride 0.45 % 1,000 ML 80 ML IVCONT ×2 (10:00→21:47)
[2022-03-04] MEDS: dexAMETHasone sod phosphate 4 MG/ML VIAL 6 MG IVPUSH (10:00)
[2022-03-04 11:58] VITALS: BP 104/49; PULSE 78; RESP 22; TEMP 36.2; O2SAT 97
[2022-03-04] MEDS: Enoxaparin Sodium 40 MG/0.4 ML SYRINGE SUBCUT (12:54)
--- NOTE | 2022-03-04 13:05 | MHC.CLN ---
F/U PO INTAKE 50% AVERAGE DIET RX: PUREED WITH HT LIQ -APPROPRIATE PT RECEIVING ENSURE BID TO INCREASE KCALS AND PROMOTE WOUND HEALING SUPP PROVIDES 700KCALS, 40G PROTEIN MONITOR PO INTAKE CLOSELY
--- NOTE | 2022-03-04 13:08 | P.PNIM_ITS ---
Subjective Subjective Date of Service: 03/04/22 Interval History: cc: weakness interval history:more alert today, non verbal Review of Systems Review of Systems: Yes Unobtainable due to mental status Physical Exam Vital Signs: Vital Signs: Last Vital Signs Temp 97.1 F 03/04/22 11:58 Pulse 78 03/04/22 11:58 Resp 22 H 03/04/22 11:58 BP 104/49 L 03/04/22 11:58 Pulse Ox 97 03/04/22 11:58 O2 Del Method 03/04/22 11:58 O2 Flow Rate 2 03/04/22 11:58 BMI result Body Mass Index 31.0 General: alert, non verbal, trisomy 21 phenotype Resp: diminished bilateral, no accessory muscles used CVS: S1,S2,RRR GI: soft, non tender, non distended Neuro: motor grossly intact, alert Psych: impaired insight Objective Data Active Medications Dexamethasone Sodium Phosphate (Dexamethasone Sod Phosphate 4 Mg/Ml Vial) 6 mg IVPUSH DAILY [facility] 234 BEDS AT [facility] Last Admin: 03/04/22 10:00 Dose: 6 mg Documented By: NIKOLAI Enoxaparin Sodium (Enoxaparin Sodium 40 Mg/0.4 Ml Syringe) 40 mg SUBCUT Q24H [facility] 234 BEDS AT THE [facility] Last Admin: 03/04/22 12:54 Dose: 40 mg Documented By: NIKOLAI Levetiracetam 250 mg/ Sodium (Chloride) 102.5 mls @ 410 mls/hr IV Q24H [facility]CLUDE 234 BEDS AT THE [facility] Last Infusion: 03/04/22 10:32 Dose: 0 mls/hr Documented By: NIKOLAI Remdesivir 100 mg/ Sodium (Chloride) 230 mls @ 115 mls/hr IV Q24H [facility]S [facility]CLUDE 234 BEDS AT THE [facility] Stop: 03/06/22 19:59 Last Infusion: 03/03/22 21:27 Dose: 0 mls/hr Documented By: MARTÍNEZ Sodium Chloride (Sodium Chloride 0.45 %) 1,000 mls @ 80 mls/hr IVCONT .[id number] COUNTS INCLUDE 234 BEDS AT THE [facility] Last Admin: 03/04/22 10:00 Dose: 80 mls/hr Documented By: NIKOLAI Cefazolin Sodium/Dextrose (Ancef) 2 gm in 50 mls @ 100 mls/hr IV Q8H [facility]S INCLUDE 234 BEDS AT THE [facility] Last Infusion: 03/04/22 10:32 Dose: 0 mls/hr Documented By: NIKOLAI Ipratropium [place] (Ipratropium [place] Praveen 0.03 % 30 Ml [place]) 2 spray NOSTRIL-B BEDTIME [facility]S INCLUDE 234 BEDS AT THE [facility] Last Admin: 03/03/22 21:26 Dose: 2 spray Documented By: MARTÍNEZ Lamotrigine (Lamotrigine 25 Mg Tablet) 25 mg PO BID [facility]CLUDE 234 BEDS AT THE [facility] Last Admin: 03/04/22 09:59 Dose: 25 mg Documented By: NIKOLAI Levalbuterol HCl (Levalbuterol Hcl 1.25 Mg/0.5 Ml Vial.Neb) 1.25 mg INHALE Q8H PRN PRN Reason: Wheezing Levothyroxine Sodium (Levothyroxine Sodium 100 Mcg/5 Ml Vial) 50 mcg IVPUSH DAILY@0600 [facility]S INCLUDE 234 BEDS AT THE [facility] Last Admin: 03/04/22 05:12 Dose: 50 mcg Documented By: MARTÍNEZ Magnesium Oxide (Magnesium Oxide 400 Mg Tablet) 400 mg PO BIDPC COUNTS INCLUDE 234 BEDS AT THE [facility] Last Admin: 03/04/22 09:59 Dose: 400 mg Documented By: NIKOLAI Pt Own (Vimpat Liq (10 Mg/Ml)) 10 ml PO BEDTIME@2030 COUNTS INCLUDE 234 BEDS AT THE [facility] Last Admin: 03/03/22 21:26 Dose: Not Given Documented By: MARTÍNEZ Non-Admin Reason: Med Not Available Omeprazole (Omeprazole 20 Mg/10 Ml Susp.Recon) 20 mg PO DAILY@0630 COUNTS INCLUDE 234 BEDS AT THE [facility] Last Admin: 03/04/22 05:14 Dose: 20 mg Documented By: MARTÍNEZ Pharmacy Consult (Consult Rx Perform Med Rec) 1 each MISCELLANE ONCE PRN PRN Reason: Consult order Labs CBC & Chem 7: 03/04/22 06:21 03/04/22 06:21 Labs: Laboratory Results - last 24 hr 03/04/22 03/04/22 06:21 06:21 MCV 99.0 H MCH 32.5 MCHC 32.8 RDW 12.8 Plt Count 198 MPV 11.8 Absolute Nucleated RBC 0.000 Nucleated RBC % (auto) 0.0 Anion Gap 18 Estim Creat Clear Calc 75.0 Estimated GFR > 60 Fasting Glucose 114 H Calcium 8.6 Microbiology Microbiology Results: Microbiology 03/03/22 06:43 Blood Culture - Preliminary Blood - Venous No growth after 24 hours. 03/03/22 06:43 Blood Culture - Preliminary Blood - Venous No growth after 24 hours. Assessment and Plan (1) LEONIE on CPAP: Status: Acute (2) Pneumonia due to COVID-19 virus: Status: Acute (3) Pneumonia: Status: Acute (4) Acute hypoxemic respiratory failure: Status: Acute Plan 61 years old lady with Down syndrome, advanced dementia, dysphagia, LEONIE on CPAP, seizure disorder who presented to the hospital with COVID-19 infection hypoxia requiring ICU admission for hypotension. Did not require intubation. complicated by MSSA bacteremia, hypernatremia Acute hypoxic respiratory failure 2/2 COVID-19 infection, complicated by post COVID MSSA pneumonia with bacteremia day 07/10 remdisivir, continue decadron day 2 changed vanc to cefazolin, tolerating, check echo follow up repeat cultures, so far negative from 03/03/22, end date would be mar 30 plan for picc metabolic encephalopathy due to hypernatremia resolved, continue 1/2NS, monitor dysphagia evaluated by BOARD HANDLER pureed honey thick liquids Buttock wound Not related to pressure, likely friction and shear Local measures, using zinc oxide and silver alginate Seizure disorder continue Lamictal, Keppra and Vimpat 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
--- NOTE | 2022-03-04 14:06 | MHC.CM.PN ---
Discharge is anticipated Monday. DP Home with [facility] for IV ABX therapy. Patients Denise rodney will administer IV ABX.
[2022-03-04 16:00] VITALS: BP 122/58; PULSE 76; RESP 18; TEMP 37.1; O2SAT 92
[2022-03-04] MEDS: Remdesivir 100 MG in 0.9 % Sodium Chloride 230 ML 115 MG IV (17:49)
--- NOTE | 2022-03-04 18:00 | MHC.SL.SWA ---
Risk of Aspiration Due to: History of Pneumonia Reduced Cognition Dysphasia Diet Status: Continue with NDD1 and NECTAR THICK Liquid Consistency and Strategies for Safe Swallow: Liquid Intake Recommendation: [place] Thick Liquid Intake Strategies: Liquids by Teaspoon Only Solid Food Consistency: Dietary Recommendations: Pureed (NDD1) Additional Modifications to Solid Foods: Oral Medication Intake: Crushed with Puree Please contact the pharmacy regarding appropriate crushable or liquid drug formulations that are available whenever modified delivery is recommended. Compensatory Strategies and Precautions to be Taken for Safe Swallow: Sitting Upright (90 deg) Liquids from Spoon Oral Check Supervision While Eating and Drinking for Safe Swallow: Total Assistance (1:1) Swallowing Recommended Treatments: Gustatory Stimulation Compens. Strategy Educat. Recommendation for Speech: Inpatient Speech Therapy Pt seen for bedside dysphagia tx this afternoon. Pt had been recommended downgrade yesterday from puree to NPO. Expanse diet order listed as puree and nectar thick. Staff reports pt has been doing well on puree & nectar thick liquid. During bedside tx today, pt was observed to tolerate puree solids. Pt refused honey thick liquid trials. D/t observation today and staff reporting toleration of current diet, no change recommended. Recommend pt to continue with PUREE solids, NECTAR THICK liquids, pills CRUSHED in puree. INSURANCE VERIFICATION REP will continue to follow. Dielectric Machine Operator Clinican/Clinical Fellow: Yes: Valeria Reed M.A., CF-INSURANCE VERIFICATION REP Supervisory Statement: I have reviewed and agree with the student/clinical fellow's documentation: N/A Speech Language Pathologist: Dayana Yu M.A., [facility])-INSURANCE VERIFICATION REP
--- NOTE | 2022-03-04 18:06 | MHC.SL.SWA ---
Risk of Aspiration Due to: History of Pneumonia Reduced Cognition Dysphasia Diet Status: Continue with NDD1 and nectar thick Liquid Consistency and Strategies for Safe Swallow: Liquid Intake Recommendation: [place] Thick Liquid Intake Strategies: Liquids by Teaspoon Only Solid Food Consistency: Dietary Recommendations: Pureed (NDD1) Additional Modifications to Solid Foods: Oral Medication Intake: Crushed with Puree Please contact the pharmacy regarding appropriate crushable or liquid drug formulations that are available whenever modified delivery is recommended. Compensatory Strategies and Precautions to be Taken for Safe Swallow: Sitting Upright (90 deg) Liquids from Spoon Oral Check Supervision While Eating and Drinking for Safe Swallow: Total Assistance (1:1) Swallowing Recommended Treatments: Gustatory Stimulation Compens. Strategy Educat. Recommendation for Speech: Inpatient Speech Therapy Comment: Staff reports pt has tolerated puree solids, nectar thick liquids, and pills crushed in puree for the last couple of days without s/s of aspiration. Recommend pt to continue with PUREE (NDD1), NECTAR THICK, pills CRUSHED in puree. Recommend full assistance feeding. Ensure pt is awake and ready for PO. Continue with rigorous oral care routine, ensure mouth is moisturized. Maintain upright at least 30 degrees to decrease risk of microaspiration. Ensure pt is awake and ready for PO intake. Continue with rigorous oral care routine, ensure mouth is moisturized. Maintain upright at least 30 degrees to decrease risk of microaspiration. MESH MAN will continue to follow. Maintenance Person Clinican/Clinical Fellow: Yes: Valeria Reed M.A., CF-MESH MAN Supervisory Statement: I have reviewed and agree with the student/clinical fellow's documentation: N/A Speech Language Pathologist: Dayana Yu M.A., [facility]-MESH MAN
--- NOTE | 2022-03-04 18:56 | MHC.SL.SWA ---
Addendum entered and electronically signed by Dayana Yu MA, CCC-DRILL DOCTOR 03/04/22 19:06: D.S. Original Note: Risk of Aspiration Due to: History of Pneumonia Reduced Cognition Dysphasia Diet Status: Liquid Consistency and Strategies for Safe Swallow: Liquid Intake Recommendation: [place] Thick Liquid Intake Strategies: Liquids by Teaspoon Only Solid Food Consistency: Dietary Recommendations: Pureed (NDD1) Additional Modifications to Solid Foods: Oral Medication Intake: Crushed with Puree Please contact the pharmacy regarding appropriate crushable or liquid drug formulations that are available whenever modified delivery is recommended. Compensatory Strategies and Precautions to be Taken for Safe Swallow: Sitting Upright (90 deg) Liquids from Spoon Oral Check Supervision While Eating and Drinking for Safe Swallow: Total Assistance (1:1) Foods to Avoid: Swallowing Recommended Treatments: Gustatory Stimulation Compens. Strategy Educat. Recommendation for Speech: Inpatient Speech Therapy Comment: DRILL DOCTOR recommended pt be downgraded to NPO during 03/03 bedside tx. Expanse reflecting pureed solids and honey thick liquids. Checked in w/ RN upon arrival. RN reported pt has been on pureed solids and honey thick liquids. RN reported pt tolerated pureed breakfast, meds crushed in applesauce with no pocketing. Reports pt has been swallowing thoroughly. Reports pt has been drowsy and lethargic, but more awake in the morning. Pt seen this afternoon for dysphagia treatment. RN and DRILL DOCTOR went into pt room together to administer crushed meds in puree. Pt tolerated applesauce with crushed meds. Pt refused honey thick liquids. Recommend pt to continue with PUREE solids (NDD1), [place]ONE[place] THICK liquids, pills CRUSHED in puree. Continue with 1:1 feed. Ensure pt is awake and ready for PO. Continue with rigorous oral care routine, ensure mouth is moisturized. Maintain upright at least 30 degrees to decrease risk of microaspiration. DRILL DOCTOR to continue to follow. Awning Maker And Installer Clinican/Clinical Fellow: Yes: Valeria Reed M.A., CF-DRILL DOCTOR Supervisory Statement: I have reviewed and agree with the student/clinical fellow's documentation: Yes Speech Language Pathologist: Dayana Yu M.A., CCC-DRILL DOCTOR
[2022-03-04 19:52] VITALS: BP 144/63; PULSE 79; RESP 19; TEMP 37.1; O2SAT 94
[2022-03-04] MEDS: Ipratropium Bromide Nas 0.03 % 30 ML SPRAY 2 SPRAY NOSTRIL-B (21:47)
[2022-03-04 23:41] VITALS: BP 134/67; PULSE 73; RESP 18; TEMP 37.1; O2SAT 97
[2022-03-05] VITALS (7 sets, daily range): BP systolic 105–147; BP diastolic 57–81; PULSE 59–82; RESP 16–18; TEMP 36.5–37; O2SAT 94–97
[2022-03-05] MEDS: ceFAZolin Sodium/Dextrose,Iso 2 GM/50 ML PIGGYBACK IV ×3 (04:46→18:32)
[2022-03-05] MEDS: Levothyroxine Sodium 100 MCG/5 ML VIAL 50 MCG IVPUSH (04:46)
[2022-03-05 06:44] LABS: Hematocrit 37.4 % (37.0-47.0); Hemoglobin 12.3 g/dl (12.0-16.0); Mean Corpuscular HGB Conc 32.9 g/dl (31.0-35.0); Mean Corpuscular Hemoglobin 32.9 pg (27.0-33.0); Mean Platelet Volume 11.9 fL (9.4-12.3); Platelet Count 210 X10*3/uL (160-400); Red Blood Count 3.74 X10*6/uL (4.20-5.50); Red Cell Distribution Width 12.8 % (11.0-16.0); White Blood Count 4.4 X10*3/uL (4.8-10.8)
[2022-03-05 07:26] LABS: Anion Gap 18 (12-20); Blood Urea Nitrogen 10 mg/dL (9-16); Calcium 8.9 mg/dL (8.4-10.2); Carbon Dioxide 28 mmol/L (22-29); Chloride 104 mmol/L (96-108); Estimated Glomerular Filt Rate > 60; Glucose Fasting 117 mg/dL (60-99); Potassium 3.7 mmol/L (3.3-5.1); Sodium 146 mmol/L (135-145)
--- NOTE | 2022-03-05 10:46 | P.PNIM_ITS ---
Subjective Subjective Date of Service: 03/05/22 Interval History: cc: weakness interval history:more alert today, non verbal Review of Systems Review of Systems: Yes Unobtainable due to mental status Physical Exam Vital Signs: Vital Signs: Last Vital Signs Temp 97.8 F 03/05/22 07:57 Pulse 59 03/05/22 07:57 Resp 17 03/05/22 08:05 BP 137/81 03/05/22 07:57 Pulse Ox 97 03/05/22 07:57 O2 Del Method 03/05/22 07:57 O2 Flow Rate 2.5 03/05/22 07:57 BMI result Body Mass Index 28.0 General: alert, non verbal, trisomy 21 phenotype Resp: diminished bilateral, no accessory muscles used CVS: S1,S2,RRR GI: soft, non tender, non distended Neuro: motor grossly intact, alert Psych: impaired insight Objective Data Active Medications Dexamethasone Sodium Phosphate (Dexamethasone Sod Phosphate 4 Mg/Ml Vial) 6 mg IVPUSH DAILY COUNTS INCLUDE 234 BEDS AT THE [facility] Last Admin: 03/04/22 10:00 Dose: 6 mg Documented By: NIKOLAI Enoxaparin Sodium (Enoxaparin Sodium 40 Mg/0.4 Ml Syringe) 40 mg SUBCUT Q24H COUNTS INCLUDE 234 BEDS AT THE [facility] Last Admin: 03/04/22 12:54 Dose: 40 mg Documented By: NIKOLAI Levetiracetam 250 mg/ Sodium (Chloride) 102.5 mls @ 410 mls/hr IV Q24H COUNTS INCLUDE 234 BEDS AT THE [facility] Last Infusion: 03/04/22 10:32 Dose: 0 mls/hr Documented By: NIKOLAI Remdesivir 100 mg/ Sodium (Chloride) 230 mls @ 115 mls/hr IV Q24H COUNTS INCLUDE 234 BEDS AT THE [facility] Stop: 03/06/22 19:59 Last Infusion: 03/04/22 22:48 Dose: 0 mls/hr Documented By: BARBARA Sodium Chloride (Sodium Chloride 0.45 %) 1,000 mls @ 80 mls/hr IVCONT .[id number] COUNTS INCLUDE 234 BEDS AT THE [facility] Last Admin: 03/04/22 21:47 Dose: 80 mls/hr Documented By: BARBARA Cefazolin Sodium/Dextrose (Ancef) 2 gm in 50 mls @ 100 mls/hr IV Q8H COUNTS INCLUDE 234 BEDS AT THE [facility] Last Infusion: 03/05/22 07:43 Dose: 0 mls/hr Documented By: FUAD Ipratropium [place] (Ipratropium [place] Praveen 0.03 % 30 Ml [place]) 2 spray NOSTRIL-B BEDTIME COUNTS INCLUDE 234 BEDS AT THE [facility] Last Admin: 03/04/22 21:47 Dose: 2 spray Documented By: BARBARA Lamotrigine (Lamotrigine 25 Mg Tablet) 25 mg PO BID COUNTS INCLUDE 234 BEDS AT THE [facility] Last Admin: 03/04/22 21:46 Dose: 25 mg Documented By: BARBARA Levothyroxine Sodium (Levothyroxine Sodium 100 Mcg/5 Ml Vial) 50 mcg IVPUSH DAILY@0600 COUNTS INCLUDE 234 BEDS AT THE [facility] Last Admin: 03/05/22 04:46 Dose: 50 mcg Documented By: BARBARA Magnesium Oxide (Magnesium Oxide 400 Mg Tablet) 400 mg PO BIDPC COUNTS INCLUDE 234 BEDS AT THE [facility] Last Admin: 03/04/22 17:25 Dose: 400 mg Documented By: NIKOLAI Pt Own (Vimpat Liq (10 Mg/Ml)) 10 ml PO BEDTIME@2030 COUNTS INCLUDE 234 BEDS AT THE [facility] Last Admin: 03/04/22 21:46 Dose: 10 ml Documented By: BARBARA Omeprazole (Omeprazole 20 Mg/10 Ml Susp.Recon) 20 mg PO DAILY@0630 COUNTS INCLUDE 234 BEDS AT THE [facility] Last Admin: 03/05/22 04:47 Dose: 20 mg Documented By: BARBARA Pharmacy Consult (Consult Rx Perform Med Rec) 1 each MISCELLANE ONCE PRN PRN Reason: Consult order Labs CBC & Chem 7: 03/05/22 06:27 03/05/22 06:27 Labs: Laboratory Results - last 24 hr 03/05/22 03/05/22 06:27 06:27 MCV 100.0 H MCH 32.9 MCHC 32.9 RDW 12.8 Plt Count 210 MPV 11.9 Absolute Nucleated RBC 0.000 Nucleated RBC % (auto) 0.0 Anion Gap 18 Estim Creat Clear Calc 65.0 Estimated GFR > 60 Fasting Glucose 117 H Calcium 8.9 Microbiology Microbiology Results: Microbiology 03/03/22 06:43 Blood Culture - Preliminary Blood - Venous No growth after 48 hours. 03/03/22 06:43 Blood Culture - Preliminary Blood - Venous No growth after 48 hours. Assessment and Plan (1) LEONIE on CPAP: Status: Acute (2) Pneumonia due to COVID-19 virus: Status: Acute (3) Pneumonia: Status: Acute (4) Acute hypoxemic respiratory failure: Status: Acute Plan 61 years old lady with Down syndrome, advanced dementia, dysphagia, LEONIE on CPAP, seizure disorder who presented to the hospital with COVID-19 infection hypoxia requiring ICU admission for hypotension. Did not require intubation. com plicated by MSSA bacteremia, hypernatremia Acute hypoxic respiratory failure 2/2 COVID-19 infection, complicated by post COVID MSSA pneumonia with bacteremia day 3/5 remdisivir, continue decadron day 3 continue cefazolin, tolerating, no vegetation on echo follow up repeat cultures, so far negative from 03/03/22, end date would be mar 30 plan for picc metabolic encephalopathy due to hypernatremia resolved with d5w, now increasing again, encourage po, monitor dysphagia evaluated by DOCUMENT PHOTOGRAPHER pureed honey thick liquids Buttock wound Not related to pressure, likely friction and shear Local measures, using zinc oxide and silver alginate Seizure disorder continue Lamictal, Keppra and Vimpat 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
[2022-03-05] MEDS: Magnesium Oxide 400 MG TABLET PO ×2 (10:53→18:32)
[2022-03-05] MEDS: levETIRAcetam 250 MG in 0.9 % Sodium Chloride 100 ML 41 MG IV (10:54)
[2022-03-05] MEDS: lamoTRIgine 25 MG TABLET PO ×2 (10:54→21:11)
[2022-03-05] MEDS: dexAMETHasone sod phosphate 4 MG/ML VIAL 6 MG IVPUSH (10:54)
[2022-03-05] MEDS: Enoxaparin Sodium 40 MG/0.4 ML SYRINGE SUBCUT (13:15)
[2022-03-05] MEDS: Sodium Chloride 0.45 % 1,000 ML 80 ML IVCONT ×2 (13:19→21:11)
[2022-03-05] MEDS: Remdesivir 100 MG in 0.9 % Sodium Chloride 230 ML 115 MG IV (18:37)
[2022-03-05] MEDS: Ipratropium Bromide Nas 0.03 % 30 ML SPRAY 2 SPRAY NOSTRIL-B (21:16)
[2022-03-06 03:44] VITALS: BP 126/84; PULSE 77; RESP 20; TEMP 530.9; TEMP 987.7; O2SAT 97
[2022-03-06] MEDS: Levothyroxine Sodium 100 MCG/5 ML VIAL 50 MCG IVPUSH (04:43)
[2022-03-06] MEDS: ceFAZolin Sodium/Dextrose,Iso 2 GM/50 ML PIGGYBACK IV ×3 (04:43→20:25)
[2022-03-06 06:53] LABS: Hematocrit 37.8 % (37.0-47.0); Hemoglobin 12.4 g/dl (12.0-16.0); Mean Corpuscular HGB Conc 32.8 g/dl (31.0-35.0); Mean Corpuscular Hemoglobin 32.5 pg (27.0-33.0); Mean Platelet Volume 12.2 fL (9.4-12.3); Platelet Count 238 X10*3/uL (160-400); Red Blood Count 3.82 X10*6/uL (4.20-5.50); Red Cell Distribution Width 12.6 % (11.0-16.0); White Blood Count 5.1 X10*3/uL (4.8-10.8)
[2022-03-06 07:30] LABS: Anion Gap 16 (12-20); Blood Urea Nitrogen 7 mg/dL (9-16); Calcium 8.3 mg/dL (8.4-10.2); Carbon Dioxide 28 mmol/L (22-29); Chloride 104 mmol/L (96-108); Creatinine Clr Calc Pharmacy 72.3; Estimated Glomerular Filt Rate > 60; Glucose Fasting 123 mg/dL (60-99); Potassium 3.6 mmol/L (3.3-5.1); Sodium 144 mmol/L (135-145)
[2022-03-06 07:58] VITALS: BP 134/62; PULSE 63; RESP 16; TEMP 36.6; O2SAT 97
[2022-03-06 08:00] VITALS: BMI 32.3
--- NOTE | 2022-03-06 09:16 | P.PNIM_ITS ---
Subjective Subjective Date of Service: 03/06/22 Interval History: cc: weakness interval history:, non verbal Review of Systems Review of Systems: Yes Unobtainable due to mental status Physical Exam Vital Signs: Vital Signs: Last Vital Signs Temp 97.8 F 03/06/22 07:58 Pulse 63 03/06/22 07:58 Resp 16 03/06/22 07:58 BP 134/62 03/06/22 07:58 Pulse Ox 97 03/06/22 07:58 O2 Del Method 03/06/22 07:58 O2 Flow Rate 2 03/06/22 07:58 BMI result Body Mass Index 32.3 General: alert, non verbal, trisomy 21 phenotype Resp: diminished bilateral, no accessory muscles used CVS: S1,S2,RRR GI: soft, non tender, non distended Neuro: motor grossly intact, alert Psych: impaired insight Objective Data Active Medications Dexamethasone Sodium Phosphate (Dexamethasone Sod Phosphate 4 Mg/Ml Vial) 6 mg IVPUSH DAILY [facility] Last Admin: 03/05/22 10:54 Dose: 6 mg Documented By: CLEMENT Enoxaparin Sodium (Enoxaparin Sodium 40 Mg/0.4 Ml Syringe) 40 mg SUBCUT Q24H [facility] Last Admin: 03/05/22 13:15 Dose: 40 mg Documented By: CLEMENT Levetiracetam 250 mg/ Sodium (Chloride) 102.5 mls @ 410 mls/hr IV Q24H [facility] Last Infusion: 03/05/22 13:19 Dose: 0 mls/hr Documented By: CLEMENT Remdesivir 100 mg/ Sodium (Chloride) 230 mls @ 115 mls/hr IV Q24H [facility] Stop: 03/06/22 19:59 Last Infusion: 03/05/22 21:02 Dose: 0 mls/hr Documented By: BARBARA Sodium Chloride (Sodium Chloride 0.45 %) 1,000 mls @ 80 mls/hr IVCONT .[id number] [facility] Last Admin: 03/05/22 21:11 Dose: 80 mls/hr Documented By: BARBARA Cefazolin Sodium/Dextrose (Ancef) 2 gm in 50 mls @ 100 mls/hr IV Q8H [facility] Last Infusion: 03/06/22 07:25 Dose: 0 mls/hr Documented By: MELISSA Ipratropium [place] (Ipratropium [place] Praveen 0.03 % 30 Ml [place]) 2 spray NOSTRIL-B BEDTIME [facility] Last Admin: 03/05/22 21:16 Dose: 2 spray Documented By: BARBARA Lamotrigine (Lamotrigine 25 Mg Tablet) 25 mg PO BID [facility] Last Admin: 03/05/22 21:11 Dose: 25 mg Documented By: BARBARA Levothyroxine Sodium (Levothyroxine Sodium 100 Mcg/5 Ml Vial) 50 mcg IVPUSH DAILY@0600 [facility] Last Admin: 03/06/22 04:43 Dose: 50 mcg Documented By: BARBARA Magnesium Oxide (Magnesium Oxide 400 Mg Tablet) 400 mg PO BIDPC [facility] Last Admin: 03/05/22 18:32 Dose: 400 mg Documented By: CLEMENT Pt Own (Vimpat Liq (10 Mg/Ml)) 10 ml PO BEDTIME@2030 [facility] Last Admin: 03/05/22 21:16 Dose: 10 ml Documented By: BARBARA Omeprazole (Omeprazole 20 Mg/10 Ml Susp.Recon) 20 mg PO DAILY@0630 [facility] Last Admin: 03/06/22 04:43 Dose: 20 mg Documented By: BARBARA Pharmacy Consult (Consult Rx Perform Med Rec) 1 each MISCELLANE ONCE PRN PRN Reason: Consult order Labs CBC & Chem 7: 03/06/22 06:33 03/06/22 06:33 Labs: Laboratory Results - last 24 hr 03/06/22 03/06/22 06:33 06:33 MCV 99.0 H MCH 32.5 MCHC 32.8 RDW 12.6 Plt Count 238 MPV 12.2 Absolute Nucleated RBC 0.000 Nucleated RBC % (auto) 0.0 Anion Gap 16 Estim Creat Clear Calc 72.3 Estimated GFR > 60 Fasting Glucose 123 H Calcium 8.3 L D Microbiology Microbiology Results: Microbiology 03/03/22 06:43 Blood Culture - Preliminary Blood - Venous No growth after 48 hours. 03/03/22 06:43 Blood Culture - Preliminary Blood - Venous No growth after 48 hours. Assessment and Plan (1) LEONIE on CPAP: Status: Acute (2) Pneumonia due to COVID-19 virus: Status: Acute (3) Pneumonia: Status: Acute (4) Acute hypoxemic respiratory failure: Status: Acute Plan 61 years old lady with Down syndrome, advanced dementia, dysphagia, ELONIE on CPAP, seizure disorder who presented to the hospital with COVID-19 infection hypoxia requiring ICU admission for hypotension. Did not require intubation. complicated by MSSA bacteremia, hypernatremia Acute hypoxic respiratory failure 2/2 COVID-19 infection, complicated by post COVID MSSA pneumonia with bacteremia day 4/5 remdisivir, continue decadron day 4 continue cefazolin, tolerating, no vegetation on echo follow up repeat cultures, so far negative from 03/03/22, end date would be mar 30 plan for picc 03/07/22 metabolic encephalopathy due to hypernatremia resolved with d5w, now maintaining at 144 without ivf dysphagia evaluated by WATCH LEADER pureed honey thick liquids Buttock wound Not related to pressure, likely friction and shear Local measures, using zinc oxide and silver alginate Seizure disorder continue Lamictal, Keppra and Vimpat 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
[2022-03-06] MEDS: lamoTRIgine 25 MG TABLET PO ×2 (10:36→20:25)
[2022-03-06] MEDS: dexAMETHasone sod phosphate 4 MG/ML VIAL 6 MG IVPUSH (10:36)
[2022-03-06] MEDS: Magnesium Oxide 400 MG TABLET PO ×2 (10:36→17:48)
[2022-03-06] MEDS: levETIRAcetam 250 MG in 0.9 % Sodium Chloride 100 ML 410 MG IV (10:36)
[2022-03-06 12:00] VITALS: BP 115/53; PULSE 55; RESP 12; TEMP 36.4; O2SAT 95
[2022-03-06] MEDS: Enoxaparin Sodium 40 MG/0.4 ML SYRINGE SUBCUT (13:19)
[2022-03-06 16:00] VITALS: BP 113/58; PULSE 70; RESP 16; TEMP 36.4; O2SAT 100
[2022-03-06] MEDS: Remdesivir 100 MG in 0.9 % Sodium Chloride 230 ML 115 MG IV (17:48)
[2022-03-06 20:15] VITALS: BP 117/55; PULSE 67; RESP 20; TEMP 36.6; O2SAT 91
[2022-03-06] MEDS: Ipratropium Bromide Nas 0.03 % 30 ML SPRAY 2 SPRAY NOSTRIL-B (22:31)
[2022-03-07] VITALS (8 sets, daily range): BP systolic 109–147; BP diastolic 54–83; PULSE 62–71; RESP 17–22; TEMP 36.4–37.2; O2SAT 86–100
[2022-03-07] MEDS: ceFAZolin Sodium/Dextrose,Iso 2 GM/50 ML PIGGYBACK IV ×3 (02:54→21:19)
[2022-03-07] MEDS: Levothyroxine Sodium 100 MCG/5 ML VIAL 50 MCG IVPUSH (05:51)
[2022-03-07 07:02] LABS: Hematocrit 37.9 % (37.0-47.0); Hemoglobin 12.6 g/dl (12.0-16.0); Mean Corpuscular HGB Conc 33.2 g/dl (31.0-35.0); Mean Corpuscular Hemoglobin 32.5 pg (27.0-33.0); Mean Corpuscular Volume 97.7 fL (80.0-98.0); Mean Platelet Volume 11.7 fL (9.4-12.3); Platelet Count 248 X10*3/uL (160-400); Red Blood Count 3.88 X10*6/uL (4.20-5.50); Red Cell Distribution Width 12.7 % (11.0-16.0); White Blood Count 6.6 X10*3/uL (4.8-10.8)
[2022-03-07 07:24] LABS: Anion Gap 16 (12-20); Blood Urea Nitrogen 10 mg/dL (9-16); Calcium 8.5 mg/dL (8.4-10.2); Carbon Dioxide 29 mmol/L (22-29); Chloride 105 mmol/L (96-108); Creatinine Clr Calc Pharmacy 83.1; Estimated Glomerular Filt Rate > 60; Glucose Fasting 114 mg/dL (60-99); Potassium 3.5 mmol/L (3.3-5.1); Sodium 146 mmol/L (135-145)
[2022-03-07] MEDS: Magnesium Oxide 400 MG TABLET PO ×2 (09:14→17:45)
[2022-03-07] MEDS: dexAMETHasone sod phosphate 4 MG/ML VIAL 6 MG IVPUSH (09:14)
[2022-03-07] MEDS: lamoTRIgine 25 MG TABLET PO ×2 (09:14→21:02)
[2022-03-07] MEDS: levETIRAcetam 250 MG in 0.9 % Sodium Chloride 100 ML 410 MG IV (09:14)
--- NOTE | 2022-03-07 10:53 | P.PNIM_ITS ---
Subjective Subjective Date of Service: 03/07/22 Interval History: cc: weakness interval history:, non verbal Review of Systems Review of Systems: Yes Unobtainable due to mental status Physical Exam Vital Signs: Vital Signs: Last Vital Signs Temp 98.0 F 03/07/22 08:00 Pulse 67 03/07/22 08:00 Resp 20 03/07/22 08:00 BP 131/54 L 03/07/22 08:00 Pulse Ox 97 03/07/22 08:00 O2 Del Method 03/07/22 08:00 O2 Flow Rate 3 03/07/22 08:00 BMI result Body Mass Index 32.3 General: alert, non verbal, trisomy 21 phenotype Resp: diminished bilateral, no accessory muscles used CVS: S1,S2,RRR GI: soft, non tender, non distended Neuro: motor grossly intact, alert Psych: impaired insight Objective Data Active Medications Dexamethasone Sodium Phosphate (Dexamethasone Sod Phosphate 4 Mg/Ml Vial) 6 mg IVPUSH DAILY [facility] Last Admin: 03/07/22 09:14 Dose: 6 mg Documented By: KARI Enoxaparin Sodium (Enoxaparin Sodium 40 Mg/0.4 Ml Syringe) 40 mg SUBCUT Q24H [facility] Last Admin: 03/06/22 13:19 Dose: 40 mg Documented By: MELISSA Levetiracetam 250 mg/ Sodium (Chloride) 102.5 mls @ 410 mls/hr IV Q24H [facility] Last Infusion: 03/07/22 09:50 Dose: 0 mls/hr Documented By: KARI Cefazolin Sodium/Dextrose (Ancef) 2 gm in 50 mls @ 100 mls/hr IV Q8H [facility] Last Infusion: 03/07/22 03:27 Dose: 0 mls/hr Documented By: BARB Ipratropium [place] (Ipratropium [place] Praveen 0.03 % 30 Ml [place]) 2 spray NOSTRIL-B BEDTIME [facility] Last Admin: 03/06/22 22:31 Dose: 2 spray Documented By: BARB Lamotrigine (Lamotrigine 25 Mg Tablet) 25 mg PO BID [facility] Last Admin: 03/07/22 09:14 Dose: 25 mg Documented By: KARI Levothyroxine Sodium (Levothyroxine Sodium 100 Mcg/5 Ml Vial) 50 mcg IVPUSH DAILY@0600 [facility] Last Admin: 03/07/22 05:51 Dose: 50 mcg Documented By: BARB Magnesium Oxide (Magnesium Oxide 400 Mg Tablet) 400 mg PO BIDPC [facility] Last Admin: 03/07/22 09:14 Dose: 400 mg Documented By: KARI Pt Own (Vimpat Liq (10 Mg/Ml)) 10 ml PO BEDTIME@2030 [facility] Last Admin: 03/06/22 20:25 Dose: 10 ml Documented By: BARB Omeprazole (Omeprazole 20 Mg/10 Ml Susp.Recon) 20 mg PO DAILY@0630 [facility] Last Admin: 03/07/22 05:51 Dose: 20 mg Documented By: BARB Pharmacy Consult (Consult Rx Perform Med Rec) 1 each MISCELLANE ONCE PRN PRN Reason: Consult order Labs CBC & Chem 7: 03/07/22 06:36 03/07/22 06:36 Labs: Laboratory Results - last 24 hr 03/07/22 03/07/22 06:36 06:36 MCV 97.7 MCH 32.5 MCHC 33.2 RDW 12.7 Plt Count 248 MPV 11.7 Absolute Nucleated RBC 0.000 Nucleated RBC % (auto) 0.0 Anion Gap 16 Estim Creat Clear Calc 83.1 Estimated GFR > 60 Fasting Glucose 114 H Calcium 8.5 Assessment and Plan (1) LEONIE on CPAP: Status: Acute (2) Pneumonia due to COVID-19 virus: Status: Acute (3) Pneumonia: Status: Acute (4) Acute hypoxemic respiratory failure: Status: Acute Plan 61 years old lady with Down syndrome, advanced dementia, dysphagia, LEONIE on CPAP, seizure disorder who presented to the hospital with COVID-19 infection hypoxia requiring ICU admission for hypotension. Did not require intubation. com plicated by MSSA bacteremia, hypernatremia Acute hypoxic respiratory failure 2/2 COVID-19 infection, complicated by post COVID MSSA pneumonia with bacteremia day 5/ remdisivir, continue decadron day 5 continue cefazolin, tolerating no vegetation on echo follow up repeat cultures, so far negative from 03/03/22, end date would be mar 30 plan for picc today, 03/07/22 metabolic encephalopathy due to hypernatremia resolved with d5w, continue to monitor without ivf dysphagia evaluated by SECURITY ENGINEER pureed honey thick liquids Buttock wound Not related to pressure, likely friction and shear Local measures, using zinc oxide and silver alginate Seizure disorder continue Lamictal, Keppra and Vimpat 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
[2022-03-07] MEDS: Enoxaparin Sodium 40 MG/0.4 ML SYRINGE SUBCUT (13:04)
--- NOTE | 2022-03-07 16:29 | MHC.CM.PN ---
Female 60 DX Covid Patient was sent to IR for a PICC line insertion. The procedure was not successful. Per MD a Port-a-cath will be inserted Monday per . DP home w IV ABX via BLS.
[2022-03-07] MEDS: Ipratropium Bromide Nas 0.03 % 30 ML SPRAY 2 SPRAY NOSTRIL-B (21:07)
[2022-03-08] MEDS: ceFAZolin Sodium/Dextrose,Iso 2 GM/50 ML PIGGYBACK IV ×3 (03:22→20:09)
[2022-03-08 04:00] VITALS: BP 135/63; PULSE 69; RESP 20; TEMP 36.9; O2SAT 95
[2022-03-08] MEDS: Levothyroxine Sodium 100 MCG/5 ML VIAL 50 MCG IVPUSH (05:22)
[2022-03-08 06:53] LABS: Hematocrit 36.4 % (37.0-47.0); Hemoglobin 11.9 g/dl (12.0-16.0); Mean Corpuscular HGB Conc 32.7 g/dl (31.0-35.0); Mean Corpuscular Hemoglobin 32.4 pg (27.0-33.0); Mean Corpuscular Volume 99.2 fL (80.0-98.0); Mean Platelet Volume 11.6 fL (9.4-12.3); Platelet Count 265 X10*3/uL (160-400); Red Blood Count 3.67 X10*6/uL (4.20-5.50); Red Cell Distribution Width 12.9 % (11.0-16.0); White Blood Count 8.6 X10*3/uL (4.8-10.8)
[2022-03-08 07:31] VITALS: BP 118/59; PULSE 54; RESP 18; O2SAT 98
[2022-03-08 07:39] LABS: Anion Gap 16 (12-20); Blood Urea Nitrogen 10 mg/dL (9-16); Calcium 8.3 mg/dL (8.4-10.2); Carbon Dioxide 29 mmol/L (22-29); Chloride 103 mmol/L (96-108); Creatinine Clr Calc Pharmacy 76.7; Estimated Glomerular Filt Rate > 60; Glucose Fasting 109 mg/dL (60-99); Potassium 3.8 mmol/L (3.3-5.1); Sodium 144 mmol/L (135-145)
[2022-03-08 08:00] VITALS: BMI 32.1
[2022-03-08] MEDS: lamoTRIgine 25 MG TABLET PO ×2 (09:29→20:13)
[2022-03-08] MEDS: Magnesium Oxide 400 MG TABLET PO ×2 (09:29→18:10)
[2022-03-08] MEDS: dexAMETHasone sod phosphate 4 MG/ML VIAL 6 MG IVPUSH (09:30)
--- NOTE | 2022-03-08 09:36 | P.PNIM_ITS ---
Subjective Subjective Date of Service: 03/08/22 Interval History: cc: weakness interval history:, non verbal Review of Systems Review of Systems: Yes Unobtainable due to mental status Physical Exam Vital Signs: Vital Signs: Last Vital Signs Temp 98.4 F 03/08/22 04:00 Pulse 54 03/08/22 07:31 Resp 18 03/08/22 07:31 BP 118/59 L 03/08/22 07:31 Pulse Ox 98 03/08/22 07:31 O2 Del Method 03/08/22 07:31 O2 Flow Rate 3.5 03/08/22 07:31 BMI result Body Mass Index 32.1 General: alert, non verbal, trisomy 21 phenotype Resp: diminished bilateral, no accessory muscles used CVS: S1,S2,RRR GI: soft, non tender, non distended Neuro: motor grossly intact, alert Psych: impaired insight Objective Data Active Medications Dexamethasone Sodium Phosphate (Dexamethasone Sod Phosphate 4 Mg/Ml Vial) 6 mg IVPUSH DAILY [facility] Last Admin: 03/08/22 09:30 Dose: 6 mg Documented By: SHIVAM Enoxaparin Sodium (Enoxaparin Sodium 40 Mg/0.4 Ml Syringe) 40 mg SUBCUT Q24H [facility] Last Admin: 03/07/22 13:04 Dose: 40 mg Documented By: KARI Cefazolin Sodium/Dextrose (Ancef) 2 gm in 50 mls @ 100 mls/hr IV Q8H [facility] Last Infusion: 03/08/22 04:08 Dose: 0 mls/hr Documented By: MARTÍNEZ Ipratropium [place] (Ipratropium [place] Praveen 0.03 % 30 Ml [place]) 2 spray NOSTRIL-B BEDTIME [facility] Last Admin: 03/07/22 21:07 Dose: 2 spray Documented By: MARTÍNEZ Lamotrigine (Lamotrigine 25 Mg Tablet) 25 mg PO BID [facility] Last Admin: 03/08/22 09:29 Dose: 25 mg Documented By: SHIVAM Levetiracetam (Levetiracetam Oral Soln 500 Mg/5 Ml) 50 mg PO DAILY@0400 [facility] Levetiracetam (Levetiracetam Oral Soln 500 Mg/5 Ml) 50 mg PO DAILY PRN PRN Reason: Seizures Levetiracetam (Levetiracetam Oral Soln 500 Mg/5 Ml) 200 mg PO DAILY [facility] Levetiracetam (Levetiracetam Oral Soln 500 Mg/5 Ml) 1,350 mg PO BEDTIME [facility] Levothyroxine Sodium (Levothyroxine Sodium 100 Mcg/5 Ml Vial) 50 mcg IVPUSH DAILY@0600 [facility] Last Admin: 03/08/22 05:22 Dose: 50 mcg Documented By: MARTÍNEZ Magnesium Oxide (Magnesium Oxide 400 Mg Tablet) 400 mg PO BIDPC [facility] Last Admin: 03/08/22 09:29 Dose: 400 mg Documented By: SHVIAM Pt Own (Vimpat Liq (10 Mg/Ml)) 10 ml PO BEDTIME@2030 [facility] Last Admin: 03/07/22 21:00 Dose: 10 ml Documented By: MARTÍNEZ Omeprazole (Omeprazole 20 Mg/10 Ml Susp.Recon) 20 mg PO DAILY@0630 [facility] Last Admin: 03/08/22 05:22 Dose: 20 mg Documented By: MARTÍNEZ Pharmacy Consult (Consult Rx Perform Med Rec) 1 each MISCELLANE ONCE PRN PRN Reason: Consult order Labs CBC & Chem 7: 03/08/22 06:26 03/08/22 06:26 Labs: Laboratory Results - last 24 hr 03/08/22 03/08/22 06:26 06:26 MCV 99.2 H MCH 32.4 MCHC 32.7 RDW 12.9 Plt Count 265 MPV 11.6 Absolute Nucleated RBC 0.000 Nucleated RBC % (auto) 0.0 Anion Gap 16 Estim Creat Clear Calc 76.7 Estimated GFR > 60 Fasting Glucose 109 H Calcium 8.3 L Assessment and Plan (1) LEONIE on CPAP: Status: Acute (2) Pneumonia due to COVID-19 virus: Status: Acute (3) Pneumonia: Status: Acute (4) Acute hypoxemic respiratory failure: Status: Acute Plan 61 years old lady with Down syndrome, advanced dementia, dysphagia, LEONIE on CPAP, seizure disorder who presented to the hospital with COVID-19 infection hypoxia requiring ICU admission for hypotension. Did not require intubation. complicated by MSSA bacteremia, hypernatremia Acute hypoxic respiratory failure 2/2 COVID-19 infection, complicated by post COVID MSSA pneumonia with bacteremia completed remdisivir, continue decadron day 6 continue cefazolin, tolerating no vegetation on echo follow up repeat cultures, so far negative from 03/03/22, end date would be mar 30 (plan for sister to administer at home) unable to straighten arm for picc, plan for [place] 03/09/22, npo after midnight, lovenox on hold metabolic encephalopathy due to hypernatremia resolved with d5w, continue to monitor without ivf dysphagia evaluated by CUTTING INSPECTOR pureed honey thick liquids Buttock wound Not related to pressure, likely friction and shear Local measures, using zinc oxide and silver alginate Seizure disorder continue Lamictal, Keppra and Vimpat 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
--- NOTE | 2022-03-08 10:45 | MHC.CLN ---
F/U PO INTAKE VARIABLE WITH ONE MEAL REFUSAL DIET RX: PUREED WITH HT LIQ -APPROPRIATE NOTED PT DOES NOT ALWAYS ACCEPT HONEY THICK LIQUIDS PT RECEIVING ENSURE BID TO INCREASE KCALS AND PROMOTE WOUND HEALING SUPP PROVIDES 700KCALS (48% EST KCALS NEEDS), 40G PROTEIN (54% EST PROTEIN NEEDS) WITH 100% ACCEPTANCE MONITOR PO INTAKE CLOSELY
[2022-03-08] MEDS: levETIRAcetam Oral Soln 500 MG/5 ML 200 MG PO (11:10)
[2022-03-08 11:40] VITALS: BP 133/61; PULSE 62; RESP 20; TEMP 36.2; O2SAT 90
--- NOTE | 2022-03-08 15:13 | MHC.SLORD ---
Speech Language Pathology Order Status: Attempted to see patient for toleration of diet, re-assessment of swallow. Patient was sleeping, sister present in room stated that she had seizures last night. Sister reported that she had fed patient at lunch, and patient did well. Had c/o not enough gravy with meal, felt with additional gravy patient would have eaten all of the meal. Will continue to follow.
[2022-03-08 15:50] VITALS: BP 128/60; PULSE 75; RESP 18; TEMP 36.1; O2SAT 100
[2022-03-08] MEDS: levETIRAcetam Oral Soln 500 MG/5 ML 50 MG PO (18:10)
[2022-03-08 19:46] VITALS: BP 133/62; PULSE 91; RESP 18; TEMP 36.7; O2SAT 92
[2022-03-08] MEDS: levETIRAcetam Oral Soln 500 MG/5 ML 1350 MG PO (20:11)
[2022-03-08] MEDS: Ipratropium Bromide Nas 0.03 % 30 ML SPRAY 2 SPRAY NOSTRIL-B (20:15)
[2022-03-08 23:40] VITALS: BP 137/64; PULSE 82; RESP 15; TEMP 36.4; O2SAT 96
--- NOTE | 2022-03-09 00:42 | PM.EVENT ---
Event Note Date of Service: 03/09/22 Event Note: Patient has developed redness of her foot bilaterally, causing her sister to be concerned. On exam patient has a blanching rash on her feet bilaterally extending to the ankles. There is a clear demarcation between healthy skin and rash as well as evidence of fungal foot infection. I believe this is likely secondary to fungal infection, triamcinolone cream ordered, given the erythema as well as edema and warmth will order Doppler ultrasound.
[2022-03-09 03:40] VITALS: BP 112/56; PULSE 51; RESP 15; TEMP 36.2; O2SAT 100
[2022-03-09] MEDS: levETIRAcetam Oral Soln 500 MG/5 ML 50 MG PO (05:13)
[2022-03-09] MEDS: Levothyroxine Sodium 100 MCG/5 ML VIAL 50 MCG IVPUSH (05:14)
[2022-03-09 07:14] LABS: Hematocrit 40.3 % (37.0-47.0); Hemoglobin 13.4 g/dl (12.0-16.0); Mean Corpuscular HGB Conc 33.3 g/dl (31.0-35.0); Mean Corpuscular Volume 99.3 fL (80.0-98.0); Mean Platelet Volume 12.8 fL (9.4-12.3); Platelet Count 225 X10*3/uL (160-400); Red Blood Count 4.06 X10*6/uL (4.20-5.50); White Blood Count 15.7 X10*3/uL (4.8-10.8)
[2022-03-09 07:43] LABS: Blood Urea Nitrogen 12 mg/dL (9-16); Calcium 8.5 mg/dL (8.4-10.2); Creatinine Clr Calc Pharmacy 71.8; Estimated Glomerular Filt Rate > 60; Glucose Fasting 101 mg/dL (60-99)
[2022-03-09 07:51] LABS: Anion Gap 22 (12-20); Carbon Dioxide 22 mmol/L (22-29); Chloride 104 mmol/L (96-108); Potassium 4.7 mmol/L (3.3-5.1); Sodium 143 mmol/L (135-145)
[2022-03-09 07:55] VITALS: BP 115/68; PULSE 66; RESP 20; TEMP 36.4; O2SAT 97
--- NOTE | 2022-03-09 09:43 | MHC.CM.PN ---
Addendum entered by Rossy Alford 03/09/22 16:31: Saldivar has not been placed. Called Radiology transferred to IR no answer. Called radiology again...Schedule is not known. Notified MD. Addendum entered by Rossy Alford 03/09/22 11:15: Patient will discharge tomorrow afternoon. She will receive her morning dose of Cefazolin. Home care services will start tomorrow 2pm. Original Note: Female Covid+ asp PNA DP LT ABX at home. Patient will transport via BLS. Patient is planned for a Sal[facility] today. [facility] plans to come in for a teach with the pts Sister/guardian. Last PM a fungal rash was noted and an anti fungal has been prescribed.
[2022-03-09] MEDS: dexAMETHasone sod phosphate 4 MG/ML VIAL 6 MG IVPUSH (09:51)
[2022-03-09] MEDS: lamoTRIgine 25 MG TABLET PO ×2 (09:52→22:05)
[2022-03-09] MEDS: Magnesium Oxide 400 MG TABLET PO ×2 (09:52→18:30)
[2022-03-09] MEDS: Triamcinolone Acet 0.1 % Cream 15 GM TUBE 1 APPL TOPICAL (09:52)
[2022-03-09] MEDS: levETIRAcetam Oral Soln 500 MG/5 ML 200 MG PO (09:55)
[2022-03-09 10:36] LABS: Dexamethasone <20 ng/dL
[2022-03-09] MEDS: ceFAZolin Sodium/Dextrose,Iso 2 GM/50 ML PIGGYBACK IV ×2 (11:19→19:28)
[2022-03-09 11:26] VITALS: BP 117/62; PULSE 72; RESP 20; TEMP 36.1; O2SAT 100
[2022-03-09] MEDS: Fluconazole 150 MG TABLET PO (12:18)
--- NOTE | 2022-03-09 13:42 | HO.PM.IMPN ---
Subjective Subjective Date of Service: 03/09/22 Interval History: Seen and evaluated this morning in her room Sister at the bedside comfortable, on 3 L of oxygen Poor interaction and could not provide any meaningful history No other overnight events reported Review of Systems Unable to provide meaningful history Physical Exam Vital Signs: Vital Signs: Last Vital Signs Temp 96.9 F 03/09/22 11:26 Pulse 72 03/09/22 11:26 Resp 20 03/09/22 11:26 BP 117/62 03/09/22 11:26 Pulse Ox 100 03/09/22 11:26 O2 Del Method 03/09/22 11:26 O2 Flow Rate 3 03/09/22 11:26 BMI result Body Mass Index 32.1 Const: Other: Constitutional : Alert with stimulation, nonverbal, not in distress, trisomy 21 phenotype Neck : Normal inspection, Supple Cardiovascular : RRR, no JVP, no lower extremity edema Respiratory : Fair bilateral air entry, basal fine crackles, on oxygen supplement Gastrointestinal: soft, lax, Normal bowel sounds, Non tender Skin : Warm, Dry skin both feet with erythema, no tenderness, mild warmth, athlete foot Neurological : Alert , unable to assess orientation, No focal deficit Objective Data Active Medications Dexamethasone Sodium Phosphate (Dexamethasone Sod Phosphate 4 Mg/Ml Vial) 6 mg IVPUSH DAILY [facility] Last Admin: 03/09/22 09:51 Dose: 6 mg Documented By: NAGA Enoxaparin Sodium (Enoxaparin Sodium 40 Mg/0.4 Ml Syringe) 40 mg SUBCUT Q24H [facility] Last Admin: 03/07/22 13:04 Dose: 40 mg Documented By: KARI Fluconazole (Fluconazole 100 Mg Tablet) 100 mg PO DAILY [facility] Stop: 03/14/22 08:59 Cefazolin Sodium/Dextrose (Ancef) 2 gm in 50 mls @ 100 mls/hr IV Q8H [facility] Last Infusion: 03/09/22 12:14 Dose: 0 mls/hr Documented By: NAGA Ipratropium [place] (Ipratropium [place] Praveen 0.03 % 30 Ml [place]) 2 spray NOSTRIL-B BEDTIME [facility] Last Admin: 03/08/22 20:15 Dose: 2 spray Documented By: MARTÍNEZ Lamotrigine (Lamotrigine 25 Mg Tablet) 25 mg PO BID [facility] Last Admin: 03/09/22 09:52 Dose: 25 mg Documented By: NAGA Levetiracetam (Levetiracetam Oral Soln 500 Mg/5 Ml) 50 mg PO DAILY@0400 [facility] Last Admin: 03/09/22 05:13 Dose: 50 mg Documented By: MARTÍNEZ Levetiracetam (Levetiracetam Oral Soln 500 Mg/5 Ml) 50 mg PO DAILY PRN PRN Reason: Seizures Last Admin: 03/08/22 18:10 Dose: 50 mg Documented By: SHIVAM Levetiracetam (Levetiracetam Oral Soln 500 Mg/5 Ml) 200 mg PO DAILY [facility] Last Admin: 03/09/22 09:55 Dose: 200 mg Documented By: NAGA Levetiracetam (Levetiracetam Oral Soln 500 Mg/5 Ml) 1,350 mg PO DAILY@2030 [facility] Last Admin: 03/08/22 20:11 Dose: 1,350 mg Documented By: MARTÍNEZ Levothyroxine Sodium (Levothyroxine Sodium 100 Mcg/5 Ml Vial) 50 mcg IVPUSH DAILY@0600 [facility] Last Admin: 03/09/22 05:14 Dose: 50 mcg Documented By: MARTÍNEZ Magnesium Oxide (Magnesium Oxide 400 Mg Tablet) 400 mg PO BIDPC [facility] Last Admin: 03/09/22 09:52 Dose: 400 mg Documented By: NAGA Pt Own (Vimpat Liq (10 Mg/Ml)) 10 ml PO BEDTIME@2030 [facility] Last Admin: 03/08/22 20:10 Dose: 10 ml Documented By: MARTÍNEZ Omeprazole (Omeprazole 20 Mg/10 Ml Susp.Recon) 20 mg PO DAILY@0630 [facility] Last Admin: 03/09/22 05:14 Dose: 20 mg Documented By: MARTÍNEZ Pharmacy Consult (Consult Rx Perform Med Rec) 1 each MISCELLANE ONCE PRN PRN Reason: Consult order Triamcinolone Acetonide (Triamcinolone Acet 0.1 % Cream 15 Gm Tube) 1 appl TOPICAL DAILY [facility]; Protocol Last Admin: 03/09/22 09:52 Dose: 1 appl Documented By: NAGA Labs CBC & Chem 7: 03/09/22 06:25 03/09/22 06:25 Labs: Laboratory Results - last 24 hr 03/03/22 03/09/22 03/09/22 06:43 06:25 06:25 MCV 99.3 H MCH 33.0 MCHC 33.3 RDW 13.0 Plt Count 225 MPV 12.8 H Absolute Nucleated RBC 0.000 Nucleated RBC % (auto) 0.0 Anion Gap 22 H Estim Creat Clear Calc 71.8 Estimated GFR > 60 Fasting Glucose 101 H Calcium 8.5 Dexamethasone <20 Microbiology Microbiology Results: Microbiology 03/03/22 06:43 Blood Culture - Final Blood - Venous No growth after 5 days. 03/03/22 06:43 Blood Culture - Final Blood - Venous No growth after 5 days. Assessment and Plan (1) MSSA bacteremia: Status: Acute (2) LEONIE on CPAP: Status: Acute (3) Acute hypoxemic respiratory failure: Status: Acute (4) Pneumonia due to COVID-19 virus: Status: Acute Plan 61 years old lady with Down syndrome, advanced dementia, dysphagia, LEONIE on CPAP, seizure disorder who presented to the hospital with COVID-19 infection hypoxia requiring ICU admission for hypotension. Did not require intubation. complicated by MSSA bacteremia, hypernatremia Acute hypoxic respiratory failure 2/2 COVID-19 infection, complicated by post COVID MSSA pneumonia with bacteremia completed remdisivir, continue decadron day 7 continue cefazolin, tolerating no vegetation on echo Negative repeat cultures from 03/03/22, end date would be mar 30 (plan for sister to administer at home) plan for saldivar today lovenox on hold Leukocytosis Likely result of steroid usage Monitor CBC Feet erythema Bilateral, including both feet in below ankle level Likely fungal infection To use fluconazole for total of 5 days metabolic encephalopathy due to hypernatremia resolved with d5w, continue to monitor dysphagia evaluated by MOTHER'S HELPER pureed honey thick liquids Buttock wound Not related to pressure, likely friction and shear Local measures, using zinc oxide and silver alginate Seizure disorder continue Lamictal, Keppra and Vimpat 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 Quality Stroke Does the patient have a stroke diagnosis?: No VTE Prior VTE?: No VTE Risk Level:: Medical - low VTE Device Contraindication: N/A - Device Ordered VTE Drug Contraindication: N/A - Med Ordered
--- NOTE | 2022-03-09 14:38 | MHC.CLN ---
F/U PO INTAKE CONTINUES VARIABLE WITH ONE MEAL REFUSAL DIET RX: PUREED WITH HT LIQ -APPROPRIATE NOTED PT DOES NOT ALWAYS ACCEPT HONEY THICK LIQUIDS PT RECEIVING ENSURE BID TO INCREASE KCALS AND PROMOTE WOUND HEALING SUPP PROVIDES 700KCALS (48% EST KCALS NEEDS), 40G PROTEIN (54% EST PROTEIN NEEDS) WITH 100% ACCEPTANCE CONTINUE TO MONITOR PO INTAKE CLOSELY
[2022-03-09 15:18] VITALS: BP 111/56; PULSE 86; RESP 18; TEMP 36.2; O2SAT 97
[2022-03-09 17:41] LABS: COVID-19 Test Positive (Negative); IDNOW Serial# 16C4AD1C
[2022-03-09 20:00] VITALS: BP 106/66; PULSE 84; RESP 18; TEMP 36.9
[2022-03-09] MEDS: levETIRAcetam Oral Soln 500 MG/5 ML 1350 MG PO (22:05)
[2022-03-09] MEDS: Ipratropium Bromide Nas 0.03 % 30 ML SPRAY 2 SPRAY NOSTRIL-B (22:07)
[2022-03-10] VITALS (8 sets, daily range): BP systolic 111–161; BP diastolic 59–81; PULSE 57–92; RESP 14–18; TEMP 36.4–36.8; O2SAT 92–99; BMI 31.8
[2022-03-10] MEDS: ceFAZolin Sodium/Dextrose,Iso 2 GM/50 ML PIGGYBACK IV ×3 (05:06→20:31)
[2022-03-10] MEDS: levETIRAcetam Oral Soln 500 MG/5 ML 50 MG PO (05:06)
[2022-03-10] MEDS: Levothyroxine Sodium 100 MCG/5 ML VIAL 50 MCG IVPUSH (05:06)
[2022-03-10 07:03] LABS: Hematocrit 39.4 % (37.0-47.0); Hemoglobin 12.9 g/dl (12.0-16.0); Mean Corpuscular HGB Conc 32.7 g/dl (31.0-35.0); Mean Corpuscular Hemoglobin 32.9 pg (27.0-33.0); Mean Corpuscular Volume 100.5 fL (80.0-98.0); Mean Platelet Volume 11.8 fL (9.4-12.3); Platelet Count 252 X10*3/uL (160-400); Red Blood Count 3.92 X10*6/uL (4.20-5.50); Red Cell Distribution Width 13.4 % (11.0-16.0)
[2022-03-10 07:37] LABS: Anion Gap 14 (12-20); Blood Urea Nitrogen 13 mg/dL (9-16); Calcium 8.6 mg/dL (8.4-10.2); Carbon Dioxide 30 mmol/L (22-29); Chloride 103 mmol/L (96-108); Estimated Glomerular Filt Rate > 60; Glucose Random 120 mg/dL (60-115); Potassium 3.8 mmol/L (3.3-5.1); Sodium 143 mmol/L (135-145)
[2022-03-10] MEDS: Magnesium Oxide 400 MG TABLET PO ×2 (09:46→17:40)
[2022-03-10] MEDS: dexAMETHasone sod phosphate 4 MG/ML VIAL 6 MG IVPUSH (09:46)
[2022-03-10] MEDS: lamoTRIgine 25 MG TABLET PO ×2 (09:46→20:36)
[2022-03-10] MEDS: Fluconazole 100 MG TABLET PO (09:46)
[2022-03-10] MEDS: levETIRAcetam Oral Soln 500 MG/5 ML 200 MG PO (09:47)
[2022-03-10] MEDS: Triamcinolone Acet 0.1 % Cream 15 GM TUBE 1 APPL TOPICAL (09:50)
--- NOTE | 2022-03-10 10:36 | P.CDIC_ITS ---
CDI Concurrent Query Documentation Clarification: PHYSICIAN'S DOCUMENTATION REQUEST Date of Query: 03/10/22 1037 Patient Name: Ann Marie Gold Admit Date: 02/26/22 Dear Doctor, A review of the medical record indicates additional documentation may be needed. Please review below and update the documentation accordingly. Clinical Indicators: Risk Factors/Clinical Indicators/Treatments PMH: Seizure disorder Continue Lamictal, Keppra, Vimpat. If possible, please further clarify in the Progress Notes, the type/etiology, acuity and control status of seizure(s): Specify type/etiology: * Idiopathic * Absence * Generalized epilepsy (grand mal, myoclonic, atonic, clonic, tonic-clonic, etc.) * Focal or partial (specify simple or complex) * Petit mal * Recurrent - further specify type/etiology * Other * Unable to determine Specify acuity: * With status epilepticus * Without status epilepticus * Other * Unable to determine Specify control status: * Well controlled * Intractable * Pharmacoresistant * Poorly controlled * Refractory * Treatment resistant * Other * Unable to determine Use of terms such as suspected, likely, concern for, or probable (associated with a specific diagnosis that is being evaluated, monitored, or treated as if it exists) are acceptable and can be coded in the inpatient setting, when documented at the time of discharge. Thank you, Pam Pina [facility], CDIS Extension: [phone] Please use your independent medical judgment in providing your response. THIS QUERY IS PART OF THE PERMANENT MEDICAL RECORD Provider Response: Other Other Diagnosis: chronic well controlled complex partial seizures
--- NOTE | 2022-03-10 10:36 | MHC.CDI.CONC ---
CDI Concurrent Query Documentation Clarification: PHYSICIAN'S DOCUMENTATION REQUEST Date of Query: 03/10/22 1037 Patient Name: Ann Marie Gold Admit Date: 02/26/22 Dear Doctor, A review of the medical record indicates additional documentation may be needed. Please review below and update the documentation accordingly. Clinical Indicators: Risk Factors/Clinical Indicators/Treatments PMH: Seizure disorder Continue Lamictal, Keppra, Vimpat. If possible, please further clarify in the Progress Notes, the type/etiology, acuity and control status of seizure(s): Specify type/etiology: Idiopathic Absence Generalized epilepsy (grand mal, myoclonic, atonic, clonic, tonic-clonic, etc.) Focal or partial (specify simple or complex) Petit mal Recurrent - further specify type/etiology Other Unable to determine Specify acuity: With status epilepticus Without status epilepticus Other Unable to determine Specify control status: Well controlled Intractable Pharmacoresistant Poorly controlled Refractory Treatment resistant Other Unable to determine Use of terms such as suspected, likely, concern for, or probable (associated with a specific diagnosis that is being evaluated, monitored, or treated as if it exists) are acceptable and can be coded in the inpatient setting, when documented at the time of discharge. Thank you, Pam Pina [facility], CDIS Extension: [phone] Please use your independent medical judgment in providing your response. THIS QUERY IS PART OF THE PERMANENT MEDICAL RECORD Provider Response: Other Other Diagnosis: chronic well controlled complex partial seizures
[2022-03-10 10:44] LABS: Prothrombin Time 78.6 SEC (10.0-13.1)
[2022-03-10 10:53] LABS: INTERNATIONAL NORM RATIO 6.3 (0.9-1.1)
[2022-03-10 10:54] LABS: Partial Thromboplastin Time 60.3 SEC (26.0-36.4)
--- NOTE | 2022-03-10 12:36 | HO.PM.IMPN ---
Subjective Subjective Date of Service: 03/10/22 Interval History: Seen and evaluated this morning in her room Sister at the bedside comfortable, on 3 L of oxygen Poor interaction and could not provide any meaningful history No other overnight events reported Review of Systems Unable to provide meaningful history Physical Exam Vital Signs: Vital Signs: Last Vital Signs Temp 97.8 F 03/10/22 07:36 Pulse 57 03/10/22 07:36 Resp 14 03/10/22 07:36 BP 136/63 03/10/22 07:36 Pulse Ox 96 03/10/22 07:36 O2 Del Method 03/10/22 07:36 O2 Flow Rate 3 03/10/22 07:36 FiO2 75 03/09/22 20:00 BMI result Body Mass Index 31.8 Const: Other: Constitutional : Alert with stimulation, nonverbal, not in distress, trisomy 21 phenotype Neck : Normal inspection, Supple Cardiovascular : RRR, no JVP, no lower extremity edema Respiratory : Fair bilateral air entry, basal fine crackles, on oxygen supplement Gastrointestinal: soft, lax, Normal bowel sounds, Non tender Skin : Warm, Dry skin both feet with erythema, no tenderness, mild warmth, athlete foot Neurological : Alert , unable to assess orientation, No focal deficit Objective Data Active Medications Dexamethasone Sodium Phosphate (Dexamethasone Sod Phosphate 4 Mg/Ml Vial) 6 mg IVPUSH DAILY [facility] Last Admin: 03/10/22 09:46 Dose: 6 mg Documented By: ITZEL Enoxaparin Sodium (Enoxaparin Sodium 40 Mg/0.4 Ml Syringe) 40 mg SUBCUT Q24H [facility] Last Admin: 03/07/22 13:04 Dose: 40 mg Documented By: KARI Fluconazole (Fluconazole 100 Mg Tablet) 100 mg PO DAILY [facility] Stop: 03/14/22 08:59 Last Admin: 03/10/22 09:46 Dose: 100 mg Documented By: ITZEL Cefazolin Sodium/Dextrose (Ancef) 2 gm in 50 mls @ 100 mls/hr IV Q8H [facility] Last Infusion: 03/10/22 10:29 Dose: 0 mls/hr Documented By: ITZEL Ipratropium [place] (Ipratropium [place] Praveen 0.03 % 30 Ml [place]) 2 spray NOSTRIL-B BEDTIME [facility] Last Admin: 03/09/22 22:07 Dose: 2 spray Documented By: RAMONA Lamotrigine (Lamotrigine 25 Mg Tablet) 25 mg PO BID [facility] Last Admin: 03/10/22 09:46 Dose: 25 mg Documented By: ITZEL Levetiracetam (Levetiracetam Oral Soln 500 Mg/5 Ml) 50 mg PO DAILY@0400 [facility] Last Admin: 03/10/22 05:06 Dose: 50 mg Documented By: BARBARA Levetiracetam (Levetiracetam Oral Soln 500 Mg/5 Ml) 50 mg PO DAILY PRN PRN Reason: Seizures Last Admin: 03/08/22 18:10 Dose: 50 mg Documented By: SHIVAM Levetiracetam (Levetiracetam Oral Soln 500 Mg/5 Ml) 200 mg PO DAILY [facility] Last Admin: 03/10/22 09:47 Dose: 200 mg Documented By: ITZEL Levetiracetam (Levetiracetam Oral Soln 500 Mg/5 Ml) 1,350 mg PO DAILY@2030 [facility] Last Admin: 03/09/22 22:05 Dose: 1,350 mg Documented By: RAMONA Levothyroxine Sodium (Levothyroxine Sodium 100 Mcg/5 Ml Vial) 50 mcg IVPUSH DAILY@0600 [facility] Last Admin: 03/10/22 05:06 Dose: 50 mcg Documented By: BARBARA Magnesium Oxide (Magnesium Oxide 400 Mg Tablet) 400 mg PO BIDPC [facility] Last Admin: 03/10/22 09:46 Dose: 400 mg Documented By: ITZEL Pt Own (Vimpat Liq (10 Mg/Ml)) 10 ml PO BEDTIME@2030 [facility] Last Admin: 03/09/22 22:06 Dose: 10 ml Documented By: RAMONA Omeprazole (Omeprazole 20 Mg/10 Ml Susp.Recon) 20 mg PO DAILY@0630 [facility] Last Admin: 03/10/22 05:07 Dose: 20 mg Documented By: BARBARA Pharmacy Consult (Consult Rx Perform Med Rec) 1 each MISCELLANE ONCE PRN PRN Reason: Consult order Triamcinolone Acetonide (Triamcinolone Acet 0.1 % Cream 15 Gm Tube) 1 appl TOPICAL DAILY [facility]; Protocol Last Admin: 03/10/22 09:50 Dose: 1 appl Documented By: ITZEL Labs CBC & Chem 7: 03/10/22 06:46 03/10/22 06:46 Labs: Laboratory Results - last 24 hr 03/09/22 03/10/22 03/10/22 17:10 06:46 06:46 MCV 100.5 H MCH 32.9 MCHC 32.7 RDW 13.4 Plt Count 252 MPV 11.8 Absolute Nucleated RBC 0.000 Nucleated RBC % (auto) 0.0 PT INR APTT Anion Gap 14 Estim Creat Clear Calc 74.0 Estimated GFR > 60 Random Glucose 120 H Calcium 8.6 COVID-19 (LAURA) Positive A COVID-19 Clin Com See Note 03/10/22 10:10 MCV MCH MCHC RDW Plt Count MPV Absolute Nucleated RBC Nucleated RBC % (auto) PT 78.6 H INR 6.3 H* APTT 60.3 H* Anion Gap Estim Creat Clear Calc Estimated GFR Random Glucose Calcium COVID-19 (LAURA) COVID-19 Clin Com Assessment and Plan (1) Elevated INR: Status: Acute (2) Pneumonia due to COVID-19 virus: Status: Acute (3) MSSA bacteremia: Status: Acute (4) LEONIE on CPAP: Status: Acute (5) Acute hypoxemic respiratory failure: Status: Acute Plan 61 years old lady with Down syndrome, advanced dementia, dysphagia, LEONIE on CPAP, seizure disorder who presented to the hospital with COVID-19 infection hypoxia requiring ICU admission for hypotension. Did not require intubation. complicated by MSSA bacteremia, hypernatremia Acute hypoxic respiratory failure 2/2 COVID-19 infection, complicated by post COVID MSSA pneumonia with bacteremia completed remdisivir, continue decadron day 8 continue cefazolin for total of 4 weeks no vegetation on echo Negative repeat cultures from 03/03/22, end date would be mar 30 (plan for sister to administer at home) PICC line placed Continue to wean down oxygen as tolerated to do home O2 evaluation supratherapeutic INR Patient only on Lovenox for DVT PPX INR of 6 Check LFT Give vitamin K Hold Lovenox for now Leukocytosis Likely result of steroid usage, improving Monitor CBC Feet erythema Bilateral, including both feet in below ankle level Likely fungal infection continue fluconazole for total of 5 days metabolic encephalopathy due to hypernatremia resolved with d5w, continue to monitor dysphagia evaluated by ANGIOGRAPHER pureed honey thick liquids Buttock wound Not related to pressure, likely friction and shear Local measures, using zinc oxide and silver alginate chronic well controlled partial complex seizure disorder continue Lamictal, Keppra and Vimpat 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
[2022-03-10 12:38] LABS: Alanine Aminotransferase < 6 U/L (0-31); Albumin Level 3.3 g/dL (3.5-5.0); Alkaline Phosphatase 95 U/L (39-117); Aspartate Amino Transferase 11 U/L (5-31); Bilirubin Direct 0.2 mg/dL (0.0-0.5); Bilirubin Total 0.2 mg/dL (0.0-1.0); Total Protein 5.9 g/dL (6.5-8.0)
[2022-03-10] MEDS: Phytonadione (Vit K1) 5 MG in 0.9 % Sodium Chloride 50 ML 50.5 MG IV (13:25)
--- NOTE | 2022-03-10 16:22 | MHC.CM.PN ---
Patient received a PICC line today for LT ABX @ HOME. Waiting for documentation to send to [facility]. DP home with [facility] will provide nursing. BLS transport.
[2022-03-10] MEDS: 0.9 % Sodium Chloride Flush 10 ML SYRINGE 5 ML IVFLUSH ×2 (17:41→21:00)
[2022-03-10] MEDS: levETIRAcetam Oral Soln 500 MG/5 ML 1350 MG PO (20:34)
[2022-03-10] MEDS: Ipratropium Bromide Nas 0.03 % 30 ML SPRAY 2 SPRAY NOSTRIL-B (20:58)
[2022-03-10] MEDS: Albuterol/Iprat 2.5/0.5MG 3 ML AMPUL.NEB INHALE (23:33)
[2022-03-11] VITALS: BP 125/58; PULSE 69; RESP 16; TEMP 36.4; O2SAT 97
[2022-03-11 03:47] VITALS: BP 145/64; PULSE 63; RESP 14; TEMP 36.5; O2SAT 94
[2022-03-11] MEDS: levETIRAcetam Oral Soln 500 MG/5 ML 50 MG PO (04:33)
[2022-03-11] MEDS: ceFAZolin Sodium/Dextrose,Iso 2 GM/50 ML PIGGYBACK IV (04:34)
[2022-03-11] MEDS: Levothyroxine Sodium 100 MCG/5 ML VIAL 50 MCG IVPUSH (05:17)
[2022-03-11 07:47] VITALS: BP 122/60; PULSE 64; RESP 16; TEMP 36.6; O2SAT 98
[2022-03-11 09:27] LABS: INTERNATIONAL NORM RATIO 1.1 (0.9-1.1); Prothrombin Time 12.9 SEC (10.0-13.1)
[2022-03-11] MEDS: levETIRAcetam Oral Soln 500 MG/5 ML 200 MG PO (10:27)
[2022-03-11] MEDS: Fluconazole 100 MG TABLET PO (10:28)
[2022-03-11] MEDS: dexAMETHasone sod phosphate 4 MG/ML VIAL 6 MG IVPUSH (10:28)
[2022-03-11] MEDS: lamoTRIgine 25 MG TABLET PO (10:28)
[2022-03-11] MEDS: 0.9 % Sodium Chloride Flush 10 ML SYRINGE 5 ML IVFLUSH (10:28)
[2022-03-11] MEDS: Magnesium Oxide 400 MG TABLET PO (10:28)
--- NOTE | 2022-03-11 11:07 | W.MHC.F2F ---
Service Date Service Date: 03/11/22 Encounter Date of encounter: 03/11/22 Reasons for Services Signs and symptoms assessed: MSSA bacteremia Difficulty swallowing Reason for care home: central line care and medication management Reason for speech therapy: swallowing impairment Homebound: Leaving the home is medically contraindicated at this time without the asist of a device and/or another person due th the listed conditions above and below. Reason homebound: bedbound/chairbound and cognitively impaired / unsafe Certification: Based on the above findings, I certify that this patient is confined to the home and needs intermittent care home care, physical therapy and/or speech therapy, or continues to need occupational therapy. The patient is under my care, and I have initiated the establishment of the plan of care. The patient will be followed by a physician who will periodically review the plan of care.
--- NOTE | 2022-03-11 11:10 | P.DS_ITS ---
DS: Providers Provider Date of Service: 03/11/22 Date of admission: 02/26/22 00:21 Primary care physician: Ramesh Stratton MD Consults: 02/26/22 07:02 Consult to Wound Care Stat Consulting Provider: [facility] [place] [facility] Reason for consultation: wound staging on buttocks 03/02/22 12:56 Consult to Infectious Diseases Routine Consulting Provider: Emelyn Sharpe Reason for consultation: MSSA bacteremia DS: Diagnosis Discharge Diagnosis (1) Elevated INR: Status: Acute (2) Pneumonia due to COVID-19 virus: Status: Acute (3) MSSA bacteremia: Status: Acute (4) LEONIE on CPAP: Status: Acute (5) Acute hypoxemic respiratory failure: Status: Acute (6) Pneumonia: Status: Acute (7) Hypotension: Status: Acute (8) Fever: Status: Acute (9) Altered mental status: Status: Acute (10) Dysphagia: Status: Acute DS: Summary Hospital Course Hospital Course: Admission note HPI Patient is a 61-year-old female a past medical history of Down syndrome, dementia,? dysphasia, seizures, history of chronic aspiration PNA, LEONIE on CPAP, full-time caregiver is her sister? as patient requires 26/12 care, nonverbal at baseline who came to the ED last evening c/o? generalized weakness, diarrhea, cough and decreased p.o. intake.? Patient was started on doxycycline outpatient with Dr. Whitlock, she developed diarrhea. In the ED, the patient was found to be tachycardic at 102BPM,? febrile at 100.5 degrees F, hypotensive at 79/54, O2 sat 95% on RA;? 30 cc/kilos fluid bolus given with no apparent resolution in the hypotension.? ED provider states the blood pressures on the monitor were not accurate and she did one manually s/p IVF bolus and the patient was noted to be in the 70s systolic. At the bedside, the patients sister was feeding her pudding with her keppra in it, I requested she stop as risk for asp pna, will give IV. Upon my bedside exam VSS except for the hypotension however, with small pushes of phenylephrine, BP was easily maintained in the low 100's systolic.? patient's? heart rate is in 90s, respiratory rate is 16,? patient is afebrile, sat is 91% on RA. Pt was originally on 4L oxygen NC however this was stopped shortly after midnight.? Patient was unarousable initially, then we suctioned her and she perked back up, was able to cough and handle her secretions. PE revealed NO JVD, regular rate and rhythm, no murmurs rubs or gallops, lungs CTA, abdomen soft, no pedal edema. I gave the patient a 0.1 mg bolus of phenylephrine x2 in the interim to support her BP until pressor gtt gets hung. Pt will be? transfer to the ICU for pressors.? Will monitor mental status, at this time patient is able to handle her secretions and is arousable to her baseline. Hospital course The patient was primarily admitted to ICU for hypoxia and hypotension. Did not require intubation but vasopressors. Found to be in acute hypoxic respiratory failure secondary to COVID-19 infection complicated by aspiration pneumonia and MSSA bacteremia. Treated with remdesivir, Decadron and started on IV vancomycin that was changed to cefazolin once blood culture finalized and grew MSSA. Echo was negative for any vegetations. Repeated cultures were negative from 03/03/2022. Id evaluated the patient and recommended to finish 4 weeks of antibiotics which will be done by 03/30/2022. PICC line was placed and [facility] will follow the patient at home to finish the treatment. She was weaned off the oxygen and evaluated for home O2 which she did not qualify for. Noted to have bilateral feet erythema secondary to likely fungal infection from infected toenails. Received fluconazole with good response. Asked to follow-up with her primary for treatment of fungal E infected toenails. Evaluated by speech therapy for dysphagia. Started on a pureed diet with honey thick liquids. To be followed as outpatient with speech therapy at home. Continue cefazolin and 03/30/2022 Follow-up with PCP regarding toenail fungal infection for proper treatment to prevent recurrent cellulitis Pureed diet with honey thick liquid, speech therapy to follow at home. Time Spent with Patient Time attestation: Total time spent providing and/or coordinating discharge services: Discharge coordination time: Greater than 30 minutes Quality: Safe Use of Opioids Does Pt have an Active Cancer Diagnosis on the Problem List?: No Quality: Stroke Does the patient have a stroke diagnosis?: No Physical Exam Vital Signs: Vital Signs: Last Vital Signs Temp 97.8 F 03/11/22 07:47 Pulse 64 03/11/22 07:47 Resp 16 03/11/22 07:47 BP 122/60 03/11/22 07:47 Pulse Ox 98 03/11/22 07:47 O2 Del Method 03/11/22 07:47 O2 Flow Rate 2 03/11/22 07:47 FiO2 75 03/09/22 20:00 BMI result Body Mass Index 31.8 Const: Other: Constitutional : Alert with stimulation, nonverbal, not in distress, trisomy 21 phenotype Neck : Normal inspection, Supple Cardiovascular : RRR, no JVP, no lower extremity edema Respiratory : Fair bilateral air entry, basal fine crackles, on oxygen supplement Gastrointestinal: soft, lax, Normal bowel sounds, Non tender Skin : Warm, Dry skin , both feet with erythema resolving, no tenderness, athlete foot, thickened toenails with likely chronic fungal infection (Onychomy cosis) Neurological : Alert , unable to assess orientation, No focal deficit DS: Data Data Completed and Pending Completed studies during hospitalization [Text1]: Procedures Assistance with Respiratory Ventilation, Less than 24 Consecutive Hours, Continuous Positive Airway Pressure (10/09/21) Labs on day of discharge: Laboratory Results - last 24 hr 03/10/22 03/11/22 06:46 08:39 PT 12.9 INR 1.1 D Total Bilirubin 0.2 Direct Bilirubin 0.2 AST 11 D ALT < 6 Alkaline Phosphatase 95 D Total Protein 5.9 L Albumin 3.[address] scan - chest: Radiologist's impression: ITS Impressions Chest X-Ray 02/25/22 20:04 IMPRESSION: New right lung infiltrate, I suspect right lower lobe. Abdomen/Pelvis CT 02/25/22 22:21 IMPRESSION: 1. No central pulmonary embolus. Assessment for segmental pulmonary emboli is nondiagnostic due to extensive motion artifact. 2. Extensive bilateral airspace groundglass airspace opacities in a consolidative opacity in the right lower lobe suspicious for pneumonia. Correlate clinically. 3. No colonic wall thickening or pericolonic inflammatory change to suggest the acute colitis. VTE: indeterminate Chest CTA 02/25/22 22:21 IMPRESSION: 1. No central pulmonary embolus. Assessment for segmental pulmonary emboli is nondiagnostic due to extensive motion artifact. 2. Extensive bilateral airspace groundglass airspace opacities in a consolidative opacity in the right lower lobe suspicious for pneumonia. Correlate clinically. 3. No colonic wall thickening or pericolonic inflammatory change to suggest the acute colitis. VTE: indeterminate Chest X-Ray 02/28/22 07:26 IMPRESSION: Worsening multifocal parahilar airspace and interstitial opacities as can be seen with pulmonary edema or multifocal pneumonia. Venous Duplex 03/09/22 08:30 IMPRESSION: No DVT demonstrated in the bilateral lower extremity. With some limitation. As described peroneal veins on the left are not visualized in the calf PICC Line Insertion 03/10/22 14:32 IMPRESSION: Right upper extremity PICC line placement. Discharge Plan Discharge Anticipated Discharge Date/Time: 03/11/22 10:34 Patient Disposition: [facility] [place] Discharge Diagnosis: Pneumonia, MSSA bacteremia COVID-19 infection Referrals: Ramesh Stratton MD [Primary Care Provider] - 1 Week Discharge Medications: New cefazolin in dextrose (iso-os) 2 gram/50 mL Piggyback 50 ml IV Q8H 20 Days Qty: 60 0RF Continued lamotrigine 25 mg tablet, chewable dispersible 25 mg PO BID Nayzilam 5 mg/spray (0.1 mL) spray,non-aerosol 5 mg intranasal DAILY PRN (Reason: Seizure Activity) acetaminophen [Tylenol] 325 mg Tablet 650 mg PO BEDTIME Mucinex Fast-Max DM Max 5-100 mg/5 mL Liquid 10 ml PO Q4H PRN (Reason: Cough) levetiracetam 100 mg/mL solution 50 mg PO DAILY@0400 levetiracetam 100 mg/mL solution 50 mg PO DAILY PRN (Reason: Seizure Activity) lidocaine HCl [Aspercreme (lidocaine HCl)] 4 % Cream 1 appl TOPICAL QID PRN (Reason: Pain) polyethylene glycol 3350 [Miralax] 17 gram Powder In Packet 17 g PO DAILY nystatin 100,000 unit/gram Cream 1 appl TOPICAL TID levetiracetam [Keppra] 100 mg/mL Solution 200 mg DAILY@0900 Rx Instructions: Give in morning levetiracetam [Keppra] 100 mg/mL Solution 1,350 mg PO BEDTIME@2030 lacosamide [Vimpat] 10 mg/mL Solution 100 mg PO BEDTIME@2030 levalbuterol HCl 1.25 mg/3 mL solution for nebulization 1.25 mg inhalation Q8H PRN (Reason: Wheezing) omeprazole magnesium 2.5 mg Susp,Delayed Release For Recon 2.5 mg PO DAILY levothyroxine 88 mcg tablet 88 mcg PO DAILY@1030 donepezil 5 mg tablet,disintegrating 5 mg PO DAILY@2200 ipratropium bromide 21 mcg (0.03 %) spray,non-aerosol 2 spray intranasal BEDTIME Discontinued doxycycline hyclate 100 mg capsule 100 mg PO BID Qty: 20 0RF Discharge Orders: Discharge Order (Routine); Ordered 03/11/22 Ordered By: Leah Hanna Diet: Pureed,Honey thick liquid Activity on Discharge: As tolerated Stand Alone Forms: Patient Portal Discharge page Care Plan Goals: Read below Health Concerns: Read below Plan of Treatment: Read below Assessment: Admitted for treatment of difficulty breathing requiring oxygen supplement. Fou nd to have COVID-19 infection with aspiration pneumonia. Blood cultures grow bacteria called Staph aureus. Evaluated by Infectious Disease as you were treated with antiviral, steroids and antibiotics. PICC line was placed to continue antibiotic at home. Continue cefazolin and 03/30/2022 Follow-up with PCP regarding toenail fungal infection for proper treatment to prevent recurrent cellulitis Pureed diet with honey thick liquid, speech therapy to follow at home.
--- NOTE | 2022-03-11 11:58 | MHC.CM.PN ---
imm 03/11/22 FEMALE 61 DX COVID+ SHE IS DISCHARGED TO HOME TODAY. She will receive LT IV ABX @ home. [facility] is providing the Medication and supplies. The Liason has completed the infusion education with Sister, Denise. [facility] will provide infusion management education, lab draws and line care. Transportation is set up for 12:00pm. [facility] start homecare services at 2pm. [facility] care has arranged for delivery of the medication and supplies. [facility] has been contacted with the discharge plan.
== END 2022-03-11 12:30 | disposition home health service (06) | DRG 177 ==
LOC: HO.ED 20:28 → HO.EDOVER 02-26 00:30 → HO.ICU 02-26 00:34 → HO.IMC 02-28 18:35
PROVIDERS: Internal Medicine; Internal Medicine Pulmonary Disease; Physician Assistant; Radiology Diagnostic Radiology; Admitting Provider Physician Assistant; Emergency Provider Student in an Organized Health Care Education/Training Program; PCP Internal Medicine; Visit Provider Student in an Organized Health Care Education/Training Program
PROC: 05H533Z Insertion of Infusion Device into Right Subclavian Vein, Percutaneous Approach (ICD-10-PCS; principal; 2022-03-10 10:30)
DX: U07.1 COVID-19 (principal); G93.41 Metabolic encephalopathy; J15.211 Pneumonia due to Methicillin susceptible Staphylococcus aureus; J96.01 Acute respiratory failure with hypoxia; J69.0 Pneumonitis due to inhalation of food and vomit; E87.0 Hyperosmolality and hypernatremia; R78.81 Bacteremia; G40.209 Localization-related (focal) (partial) symptomatic epilepsy and epileptic syndromes with complex partial seizures, not intractable, without status epilepticus; U09.9 Post COVID-19 condition, unspecified; I95.9 Hypotension, unspecified; R13.10 Dysphagia, unspecified; E03.9 Hypothyroidism, unspecified; K21.9 Gastro-esophageal reflux disease without esophagitis; Q90.9 Down syndrome, unspecified; B95.61 Methicillin susceptible Staphylococcus aureus infection as the cause of diseases classified elsewhere; B35.3 Tinea pedis; R79.1 Abnormal coagulation profile; T38.0X5A Adverse effect of glucocorticoids and synthetic analogues, initial encounter; F02.80 Dementia in other diseases classified elsewhere, unspecified severity, without behavioral disturbance, psychotic disturbance, mood disturbance, and anxiety; D72.829 Elevated white blood cell count, unspecified; G47.33 Obstructive sleep apnea (adult) (pediatric); Z88.0 Allergy status to penicillin; Z88.2 Allergy status to sulfonamides; Z88.5 Allergy status to narcotic agent; Z79.890 Hormone replacement therapy; Z79.899 Other long term (current) drug therapy
CPT/HCPCS: 0241U; 36415; 36573; 71045; 71275; 74177; 80048; 80053; 80076; 80299; 80307; 82040; 82077; 82607; 82746; 82803; 83605; 83615; 83735; 83880; 84100; 84145; 84484; 85007; 85025; 85027; 85379; 85610; 85730; 86140; 87040; 87070; 87077; 87186; 87205; 87493; 87633; 87635; 92526; 92610; 93005; 93306; 93970; 94660; 99284; C1751; C1758; J0131; J0248; J0456; J0690; J0692; J0696; J1100; J1650; J1940; J1953; J2370; J3370; J3430; P9047; Q9967

== ENCOUNTER 2022-03-19 10:40 | Outpatient (REF) | payer OTHER, SELFPAY ==
[2022-03-19 10:44] LABS: MANUAL DIFF FLAG NO
[2022-03-19 10:50] LABS: Basophils Absolute Auto 0.1 X10*3/uL (0.0-0.2); Basophils Percent Auto 1.6 % (0-2); Eosinophils Absolute Auto 0.1 X10*3/uL (0.0-0.4); Eosinophils Percent Auto 2.6 % (0-4); Hematocrit 39.1 % (37.0-47.0); Hemoglobin 12.5 g/dl (12.0-16.0); Imm Gran Abs Auto 0.19 X10*3/uL (0.00-0.03); Imm Gran Pct Auto 3.8 % (0.0-0.4); Lymphocytes Absolute Auto 1.4 X10*3/uL (1.2-4.9); Lymphocytes Percent Auto 28.6 % (20-40); Mean Corpuscular Hemoglobin 32.4 pg (27.0-33.0); Mean Corpuscular Volume 101.3 fL (80.0-98.0); Mean Platelet Volume 11.1 fL (9.4-12.3); Monocytes Absolute Auto 0.6 X10*3/uL (0.1-1.2); Monocytes Percent Auto 12.7 % (2-11); Neutrophils Absolute Auto 2.5 x10*3/uL (2.0-8.3); Neutrophils Percent Auto 50.7 % (45-73); Platelet Count 195 X10*3/uL (160-400); Red Blood Count 3.86 X10*6/uL (4.20-5.50); Red Cell Distribution Width 14.5 % (11.0-16.0)
[2022-03-19 11:42] LABS: Anion Gap 15 (12-20); Blood Urea Nitrogen 12 mg/dL (9-16); Calcium 8.6 mg/dL (8.4-10.2); Carbon Dioxide 26 mmol/L (22-29); Chloride 107 mmol/L (96-108); Estimated Glomerular Filt Rate > 60; Glucose Random 96 mg/dL (60-115); Potassium 4.1 mmol/L (3.3-5.1); Sodium 144 mmol/L (135-145)
== END 2022-03-19 10:41 | disposition home or self-care (01) ==
LOC: HO.LNP 10:40
PROVIDERS: Visit Provider Internal Medicine
DX: J69.0 Pneumonitis due to inhalation of food and vomit (principal)
CPT/HCPCS: 80048; 85025

== ENCOUNTER 2022-03-23 11:27 | Outpatient (REF) | payer OTHER, SELFPAY ==
[2022-03-23 11:32] LABS: MANUAL DIFF FLAG NO
[2022-03-23 11:43] LABS: Basophils Absolute Auto 0.1 X10*3/uL (0.0-0.2); Basophils Percent Auto 1.7 % (0-2); Eosinophils Absolute Auto 0.1 X10*3/uL (0.0-0.4); Eosinophils Percent Auto 2.7 % (0-4); Hemoglobin 12.5 g/dl (12.0-16.0); Imm Gran Abs Auto 0.17 X10*3/uL (0.00-0.03); Imm Gran Pct Auto 4.1 % (0.0-0.4); Lymphocytes Absolute Auto 1.2 X10*3/uL (1.2-4.9); Lymphocytes Percent Auto 29.8 % (20-40); Mean Corpuscular HGB Conc 32.1 g/dl (31.0-35.0); Mean Corpuscular Hemoglobin 32.6 pg (27.0-33.0); Mean Corpuscular Volume 101.6 fL (80.0-98.0); Mean Platelet Volume 10.5 fL (9.4-12.3); Monocytes Absolute Auto 0.5 X10*3/uL (0.1-1.2); Monocytes Percent Auto 12.1 % (2-11); Neutrophils Absolute Auto 2.1 x10*3/uL (2.0-8.3); Neutrophils Percent Auto 49.6 % (45-73); Platelet Count 247 X10*3/uL (160-400); Red Blood Count 3.84 X10*6/uL (4.20-5.50); Red Cell Distribution Width 14.6 % (11.0-16.0); White Blood Count 4.1 X10*3/uL (4.8-10.8)
[2022-03-23 12:37] LABS: Anion Gap 14 (12-20); Blood Urea Nitrogen 9 mg/dL (9-16); Calcium 8.8 mg/dL (8.4-10.2); Carbon Dioxide 26 mmol/L (22-29); Chloride 108 mmol/L (96-108); Estimated Glomerular Filt Rate > 60; Glucose Random 89 mg/dL (60-115); Potassium 4.2 mmol/L (3.3-5.1); Sodium 144 mmol/L (135-145)
== END 2022-03-23 11:28 | disposition home or self-care (01) ==
LOC: HO.HVNA 11:27
PROVIDERS: Visit Provider Internal Medicine
DX: U07.1 COVID-19 (principal); J12.82 Pneumonia due to coronavirus disease 2019
CPT/HCPCS: 36415; 80048; 85025

== ENCOUNTER 2022-03-30 11:59 | Outpatient (REF) | payer OTHER, SELFPAY ==
[2022-03-30 12:05] LABS: MANUAL DIFF FLAG NO
[2022-03-30 12:13] LABS: Basophils Percent Auto 0.8 % (0-2); Eosinophils Absolute Auto 0.1 X10*3/uL (0.0-0.4); Eosinophils Percent Auto 2.5 % (0-4); Hematocrit 35.5 % (37.0-47.0); Hemoglobin 11.2 g/dl (12.0-16.0); Imm Gran Abs Auto 0.07 X10*3/uL (0.00-0.03); Imm Gran Pct Auto 1.3 % (0.0-0.4); Lymphocytes Absolute Auto 1.1 X10*3/uL (1.2-4.9); Lymphocytes Percent Auto 20.8 % (20-40); Mean Corpuscular HGB Conc 31.5 g/dl (31.0-35.0); Mean Corpuscular Volume 104.7 fL (80.0-98.0); Mean Platelet Volume 10.9 fL (9.4-12.3); Monocytes Absolute Auto 0.6 X10*3/uL (0.1-1.2); Neutrophils Absolute Auto 3.3 x10*3/uL (2.0-8.3); Neutrophils Percent Auto 63.6 % (45-73); Platelet Count 197 X10*3/uL (160-400); Red Blood Count 3.39 X10*6/uL (4.20-5.50); Red Cell Distribution Width 14.7 % (11.0-16.0); White Blood Count 5.2 X10*3/uL (4.8-10.8)
[2022-03-30 12:49] LABS: Anion Gap 15 (12-20); Blood Urea Nitrogen 10 mg/dL (9-16); Calcium 8.7 mg/dL (8.4-10.2); Carbon Dioxide 29 mmol/L (22-29); Chloride 106 mmol/L (96-108); Estimated Glomerular Filt Rate > 60; Glucose Random 88 mg/dL (60-115); Potassium 3.5 mmol/L (3.3-5.1); Sodium 146 mmol/L (135-145)
[2022-03-30 13:11] LABS: TSH reflex Free T4 1.87 uIU/mL (0.32-4.0)
== END 2022-03-30 12:00 | disposition home or self-care (01) ==
LOC: HO.HVNA 11:59
PROVIDERS: Visit Provider Internal Medicine
DX: J69.0 Pneumonitis due to inhalation of food and vomit (principal); E03.9 Hypothyroidism, unspecified; R78.81 Bacteremia; B95.61 Methicillin susceptible Staphylococcus aureus infection as the cause of diseases classified elsewhere
CPT/HCPCS: 36415; 80048; 84443; 85025; 99212

== ENCOUNTER 2022-03-30 16:00 | Outpatient (REF) | payer OTHER, SELFPAY | END 2022-03-30 16:01 | disposition home or self-care (01) | LOC: HO.LAB 16:00 | PROVIDERS: PCP Family Medicine; Visit Provider Internal Medicine | DX: R78.81 Bacteremia (principal); B95.61 Methicillin susceptible Staphylococcus aureus infection as the cause of diseases classified elsewhere | CPT/HCPCS: 87040 ==

== ENCOUNTER 2022-04-26 18:50 | Inpatient (IN) | payer OTHER, SELFPAY ==
--- NOTE | ~2022-04-26 | CT_ITS ---
EXAMINATION: CT CHEST WITHOUT CONTRAST CLINICAL INFORMATION: Shortness of breath and pneumonia COMPARISON: Chest radiograph earlier today and CT angiogram chest 02/25/2022 TECHNIQUE: Multidetector volumetric CT imaging of the chest was done. Axial MIP volume rendering provided. Sagittal and coronal reformatted images were obtained. This CT examination was performed using dose optimization techniques as appropriate, variously including the following: *Automated exposure control *Adjustment of mA and/or kV according to patient size (this includes techniques or standardized protocols for targeted exams where dose is matched to indication/reason for exam; i.e. extremities or head) *Use of iterative reconstruction technique DLP: 249 mGy-cm FINDINGS: Marked motion artifact impedes interpretation. LUNGS AND PLEURA: Similar to the chest radiograph earlier today, interstitial edema is present with peribronchial thickening suggestive of interstitial edema. Some areas of alveolar airspace disease in the lung bases consistent with edema as well. The dense consolidation that was noted at the right lung base on the 02/25/2022 study has resolved. No focal consolidations with air bronchograms are seen on the current study. No pleural effusions are present MEDIASTINUM: Again noted is an aberrant right subclavian artery. Heart size upper limits of normal. CORONARY ARTERY CALCIFICATION: None visualized on this study. AXILLA: No lymphadenopathy. UPPER ABDOMEN: Unremarkable. OSSEOUS STRUCTURES: Mild degenerative changes present in the spine. Some Schmorl's nodes are present. CT/CT chest wo IV con IMPRESSION: 1. Interstitial edema with some alveolar airspace disease in the lung bases consistent with CHF. It is a bit unusual that there are no pleural effusions. 2. The dense consolidation seen at the right lung base on the 02/25/2022 study has resolved. 3. Incidental note made of an aberrant right subclavian artery and mild degenerative changes in the spine. Fleischner guidelines were followed.
--- NOTE | ~2022-04-26 | XR_ITS ---
EXAMINATION: XR CHEST CLINICAL INFORMATION: Short of breath COMPARISON: 02/28/2022 TECHNIQUE: Frontal view of the chest was obtained. FINDINGS: The lungs are well expanded. Diffuse interstitial prominence with hazy opacities of both lungs and peribronchial cuffing. No pleural effusion or pneumothorax. The cardiomediastinal silhouette is within normal limits. Cervical hardware noted. XR/XR chest 1V IMPRESSION: Diffuse interstitial prominence with peribronchial cuffing and hazy opacities. Edema is favored with this appearance.
--- NOTE | ~2022-04-26 | XR_ITS ---
EXAMINATION: XR CHEST CLINICAL INFORMATION: Shortness of breath COMPARISON: Chest radiographs 04/30/2022, 04/26/2022, 02/28/2022; CT chest 04/26/2022, 02/25/2022 TECHNIQUE: Portable upright AP view of the chest was obtained. FINDINGS: There is coarsening of the bronchovascular markings with mild cephalization of flow and perivascular cuffing consistent with interstitial edema. Suspect early acinar consolidation or groundglass opacity right upper lobe adjacent to minor fissure. No effusion. Heart size upper normal. The hilar and mediastinal contours and bony structures are unremarkable. There is contrast in the colon from recent barium swallow exam. XR/XR chest 1V IMPRESSION: 1. Mild interstitial edema. 2. Subtle early consolidation or groundglass opacity right upper lobe adjacent to minor fissure. 3. No effusion.
--- NOTE | ~2022-04-26 | XR_ITS ---
EXAMINATION: XR CHEST CLINICAL INFORMATION: Tachypnea COMPARISON: Chest 04/26/2022 TECHNIQUE: Frontal view of the chest was obtained. FINDINGS: The lungs are well-expanded with diffuse bilateral interstitial prominence minimally prominent at 04/26/2022. No consolidation pleural effusion. Heart size and pulmonary vascularity is normal. No gross bony abnormality. XR/XR chest 1V IMPRESSION: Diffuse bilateral interstitial prominence likely interstitial pneumonitis. No consolidation or pleural effusion seen. No major change from the last exam 04/26/2022.
--- NOTE | ~2022-04-26 | FL_ITS ---
EXAMINATION: XR BARIUM SWALLOW CLINICAL INFORMATION: Aspiration pneumonia COMPARISON: None TECHNIQUE: Fluoroscopic guidance was provided for modified barium swallow performed by the speech and hearing department. Patient was administered liquid barium and various food media mixed with barium. FINDINGS: No retention, aspiration or penetration is seen with any media. Please see speech and hearing report for detailed findings. FLUOROSCOPY TIME: 1.8 min DOSE AREA PRODUCT: 1.3 lind per centimeter squared FL/FL barium swallow modified IMPRESSION: No aspiration or penetration seen.
--- NOTE | ~2022-04-26 | FL_ITS ---
EXAMINATION: XR BARIUM SWALLOW MODIFIED CLINICAL INFORMATION: Aspiration on last barium swallow 04/29/2022. COMPARISON: None TECHNIQUE: Lateral fluoroscopy modified barium swallow was performed with patient sitting on a chair in presence of speech therapist. FINDINGS: There is a single episode of laryngeal aspiration with nectar consistency barium at which point exam was terminated. Initially, patient had normal swallowing mechanism with barium puree, nectar and honey consistency barium. No retention of barium fluid was seen in the valleculae or piriform sinuses. Patient is status post remote C3 and C4 disc prostheses effusion. FLUOROSCOPY TIME: 1.3 minutes. DOSE AREA PRODUCT: 0.700 uGy-m2 (microgray-meter squared). FL/FL barium swallow modified IMPRESSION: 1. Single episode of laryngeal aspiration with nectar consistency barium at which point the exam was terminated. Initially, patient had tolerated nectar, honey and puree consistency food with barium prior to the aspiration. No retention of barium in the valleculae or piriform sinuses. 2. Correlate with speech therapy results.
--- NOTE | ~2022-04-26 | FL_ITS ---
EXAMINATION: FL BARIUM SWALLOW CLINICAL INFORMATION: Pneumonia. Rule out aspiration. COMPARISON: Modified barium swallow 04/27/2022 and previous chest x-ray and chest CT 04/26/2022 TECHNIQUE: Limited barium swallow was performed. Initially thin barium was administered to the patient in a chair. Lateral imaging of the neck demonstrate no evidence of aspiration. Additional barium was administered and attempts at imaging the lower esophagus with the patient sitting in chair in the lateral and AP projections was attempted but chest could not be well visualized. Patient was transferred to her stretcher. The patient was administered thin liquid barium. Follow-up chest and abdominal x-rays were performed. Fluoroscopy time: 0.3 minutes DAP: 0.18 Gycm2 Images: 3 fluoroscopic images and 4 overhead images FINDINGS: Lateral swallowing images with patient sitting in a chair demonstrated no aspiration. Initial overhead images after the patient drank demonstrated a small amount of oral contrast in the mid thoracic esophagus. There is oral contrast in the stomach and proximal small bowel. This appears unremarkable. On repeat images following oral contrast there is evidence of aspiration with oral contrast in the trachea and proximal right mainstem bronchus. The distal thoracic esophagus is partially opacified with contrast and appears unremarkable. FL/FL barium swallow IMPRESSION: Limited exam. Aspiration in the trachea and proximal right mainstem bronchus.
--- NOTE | 2022-04-26 18:53 | ED_ITS ---
HPI - General Adult General Chief complaint: Altered Mental Status Stated complaint: SEPSIS, FEVER Time Seen by Provider: 04/26/22 18:52 Source: family Mode of arrival: EMS Limitations: other (patient unable to provide hx nonverbal at baseline) History of Present Illness HPI narrative: 61-year-old female with a PMHx of down syndrome, dementia, seizures, who presents to the ED with generalized weakness, altered mental status and productive cough, fevers and chills x2 days. According to family member patient has not been acting the same she tells me at baseline she is nonverbal and unable to speak however she has noted increased weakness over the past few days T-max a 102 degrees. He reports patient was recently in the hospital with an upper respiratory infection and since then she has been declining. Poor p.o. intake and weakness. Unable to obtain of review of systems from patient as she is nonverbal. Hx obtained from caregiver. Related Data Home Medications Medication Instructions Recorded Confirmed donepezil 5 mg disintegrating 5 mg PO DAILY@219910/21/20 02/25/22 tablet ipratropium bromide 21 mcg (0.03 2 spray intranasal BEDTIME 10/21/20 02/25/22 %) nasal spray levothyroxine 88 mcg tablet 88 mcg PO DAILY@102910/21/20 02/25/22 lacosamide 10 mg/mL oral solution 100 mg PO BEDTIME@202910/09/21 02/25/22 (Vimpat) levetiracetam 100 mg/mL oral 1,350 mg PO BEDTIME@202910/09/21 02/25/22 solution (Keppra) levetiracetam 100 mg/mL oral 200 mg DAILY@89910/09/21 02/25/22 solution (Keppra) omeprazole magnesium 2.5 mg oral 2.5 mg PO DAILY 10/09/21 02/25/22 suspension,delayed release acetaminophen 325 mg tablet 650 mg PO BEDTIME 02/25/22 02/25/22 (Tylenol) dextromethorphan-guaifenesin 5 10 ml PO Q4H PRN Cough 02/25/22 02/25/22 mg-100 mg/5 mL oral liquid (Mucinex Fast-Max DM Max) lamotrigine 25 mg chewable 25 mg PO BID 02/25/22 02/25/22 dispersible tablet levetiracetam 100 mg/mL oral 50 mg PO DAILY PRN Seizure Activity 02/25/22 02/25/22 solution levetiracetam 100 mg/mL oral 50 mg PO DAILY@0400 02/25/22 02/25/22 solution lidocaine HCl 4 % topical cream 1 appl topical QID PRN Pain 02/25/22 02/25/22 (Aspercreme (lidocaine HCl)) midazolam 5 mg/spray (0.1 mL) 5 mg intranasal DAILY PRN Seizure 02/25/22 02/25/22 nasal spray (Nayzilam) Activity nystatin 100,000 unit/gram topical 1 appl topical TID 02/25/22 02/25/22 cream polyethylene glycol 3350 17 gram 17 g PO DAILY 02/25/22 02/25/22 oral powder packet (Miralax) Previous Rx's Medication Instructions Recorded cefazolin 2 gram/50 mL in dextrose 50 ml IV Q8H 20 days #60 ea 03/11/22 (iso-osmotic) intravenous piggyback levalbuterol HCl 1.25 mg/3 mL 1.25 mg (3 mL) inhalation Q8H #810 04/18/22 solution for nebulization mL Allergies Allergy/AdvReac Type Severity Reaction Status Date / Time fentanyl [FENTANYL] Allergy Intermediate UNKNOWN Verified 03/30/22 15:35 codeine [CODEINE] Allergy Unknown UNKNOWN Verified 03/30/22 15:35 lorazepam [From ATIVAN] Allergy Unknown UNKNOWN Verified 03/30/22 15:35 oxcarbazepine [OXCARBAZEPINE] Allergy Unknown UNKNOWN Verified 03/30/22 15:35 penicillin V Allergy Unknown Unknown Verified 03/30/22 15:35 Penicillins [PENICILLINS] Allergy Unknown DIFFICULTY Verified 03/30/22 15:35 BREATHING Sulfa (Sulfonamide Allergy Unknown DIFFICULTY Verified 03/30/22 15:35 Antibiotics) BREATHING [SULFA (SULFONAMIDE ANTIBIOTICS)] levofloxacin [From LEVAQUIN] AdvReac Intermediate hallucinati Verified 03/30/22 15:35 ons Review of Systems Review of Systems: Yes Unobtainable due to mental status PMFSH Past Medical History Attestation statement: The following information was validated with the patient. Source: old records reviewed and nursing notes reviewed Medical History Aspiration into airway Aspiration pneumonia Dementia Down syndrome Down syndrome Dysphagia Dysphagia causing pulmonary aspiration with swallowing Epilepsy Hypoxemia MSSA bacteremia MSSA bacteremia LEONIE on CPAP Physical deconditioning Pneumonia Respiratory distress Seizure disorder Toxic metabolic encephalopathy Unspecified skin changes Social History Social History Household Members: Other Household Members Other:: sister Housing: House Do you presently have visiting nurse or other home services: No (recently discharged from [facility]: PT, OT, nurse on 02/08) Patient Tobacco Use Status: Never used Tobacco Advance Directives: No Advance Directives Information Provided: Yes service: No Current occupational status: disabled Physical Exam ED Vital Signs: Vital Signs - 24 hr 04/26/22 18:55 04/26/22 19:00 04/26/22 20:00 Temperature 103.1 F H 102.0 F H Pulse Rate 116 H 119 H 115 H Respiratory Rate 22 H 18 24 H Blood Pressure 113/44 L 113/44 L 111/85 Pulse Oximetry 98 96 97 Oxygen Delivery Method Nasal Cannula Room Air Nasal Cannula Oxygen Flow Rate 2 BMI result Body Mass Index 29.2 Patient noted to be febrile, Tylenol ordered. Also noted to be tachycardic and tachypneic. Appearance: Alert.? Awake, moving all extremities.? No acute distress.?Coughing during my exam. Warm to the touch. Head:? Normocephalic, atraumatic, no step-offs or deformities Eyes: Pupils equal, round and reactive to light.? Neck: Normal inspection.? Neck supple.? No meningeal CVS:Rapid rate normal rythem.? Pulses normal.? Respiratory: No respiratory distress.? Diminished breath sounds throughout w/ crackles b/l . Abdomen: Soft and nontender.?+BS Skin: Skin warm and dry.? Normal skin color.? Normal skin turgor.? Extremities: No lower extremity edema.? No calf ttp.? 5/5 strength to bilateral upper and lower extremities Back:? No midline tenderness, no C-spine tenderness, full range of motion, no CVA tenderness bilaterally Neuro: Unable to assess patient's mental status fully as she is not communicative at this time.? No motor deficit.? Course Reevaluation(s) Reevaluation #1: Patient febrile (given tylenol) , elevated white blood cell count, with possible pneumonia at this time a sepsis focused exam was done. Cefepime ordered for broad coverage. Pending chemistry, lactic acid, imaging. Time: 19:42 Reevaluation #2: Chemistry within normal limits. Lactic acid normal. X-ray showing diffuse interstitial prominence with peribronchial cuffing and hazy opacities concerning for pneumonia covered with cefepime. Based off patient's history and presentation patient will be admitted for further intervention and treatment spoke to hospitalist Funmi will be admitting patient Time: 20:21 Medications Administered Generic Name Dose Route Start Last Admin Trade Name Freq PRN Reason Stop Dose Admin Sodium Chloride 1,905.09 mls @ 1,905.09 mls/hr 04/26/22 19:39 04/26/22 19:46 Ns 30 ml/kg infuse over 1 hr (1905.09 ml) 04/26/22 20:38 1,905.09 mls/hr IV Administration .Q1H STA Discontinued Medications Generic Name Dose Route Start Last Admin Trade Name Freq PRN Reason Stop Dose Admin Acetaminophen 650 mg 04/26/22 19:38 04/26/22 19:51 Acetaminophen Supp 650 Mg Supp.Rect WV 04/26/22 19:39 650 mg ONCE ONE Administration Cefepime HCl 2 gm/ Sodium 50 mls @ 100 mls/hr 04/26/22 19:39 04/26/22 19:48 Chloride IV 04/26/22 20:08 100 mls/hr ONCE ONE Administration Medical Decision Making [facility] Narrative Medical decision making narrative: 1899 61-year-old female presents to the emergency department with altered mental status, productive cough x2 days per caregiver caregiver also reports an oral temperature of a 102 degrees F the responded well to Tylenol. Upon exam patient altered unable to answered questions, warm to the touch, regular rate fast rhythm likely sinus tachycardia, breath sounds diminished bila terally with bilateral crackles. At this time sepsis alert called as there is concerns for sepsis. Blood cultures, lactic acid, basic labs, imaging ordered as well as urine. Concerns for possible pneumonia. Will obtain imaging to rule in/out. Unlikely PE. Plan labs, imaging, lactic, blood cultures. Medical Records Medical records reviewed: Yes I reviewed the patient's medical records. Lab Data Lab results reviewed: Yes I reviewed the patient's lab results. Result diagrams: 04/26/22 19:15 04/26/22 19:15 Labs: Lab Results 04/26/22 04/26/22 04/26/22 Range/Units 19:15 19:15 19:15 WBC 18.3 H (4.8-10.8) X10*3/uL RBC 3.84 L (4.20-5.50) X10*6/uL Hgb 12.9 (12.0-16.0) g/dl Hct 39.3 (37.0-47.0) % MCV 102.3 H (80.0-98.0) fL MCH 33.6 H (27.0-33.0) pg MCHC 32.8 (31.0-35.0) g/dl RDW 15.2 (11.0-16.0) % Plt Count 225 (160-400) X10*3/uL MPV 10.4 (9.4-12.3) fL Immature Gran % (Auto) 0.6 H (0.0-0.4) % Neut % (Auto) 94.6 H (45-73) % Lymph % (Auto) 2.8 L (20-40) % Schoolcraft % (Auto) 1.5 L (2-11) % Eos % (Auto) 0.1 (0-4) % Baso % (Auto) 0.4 (0-2) % Lymph # (Auto) 0.5 L (1.2-4.9) X10*3/uL Schoolcraft # (Auto) 0.3 (0.1-1.2) X10*3/uL Eos # (Auto) 0.0 (0.0-0.4) X10*3/uL Baso # (Auto) 0.1 (0.0-0.2) X10*3/uL Abs Immat Gran (auto) 0.11 H (0.00-0.03) X10*3/uL Absolute Neuts (auto) 17.3 H (2.0-8.3) x10*3/uL Absolute Nucleated RBC 0.000 (0.0-0.012) X10*3/uL Nucleated RBC % (auto) 0.0 (0.0-0.2) /100WBC Smear Tech's Comments VERIFIED Sodium 141 (135-145) mmol/L Potassium 3.7 (3.3-5.1) mmol/L Chloride 106 (96-108) mmol/L Carbon Dioxide 23 (22-29) mmol/L Anion Gap 16 (12-20) BUN 10 (9-16) mg/dL Creatinine 0.63 (0.5-1.4) mg/dL Estim Creat Clear Calc 73.9 Estimated GFR > 60 Random Glucose 89 (60-115) mg/dL Lactic Acid 1.5 (0.5-2.0) mmol/L Calcium 9.1 (8.4-10.2) mg/dL Magnesium 1.8 (1.6-2.6) mg/dL Total Bilirubin 0.7 (0.0-1.0) mg/dL AST 24 (5-31) U/L ALT 15 (0-31) U/L Alkaline Phosphatase 138 H (39-117) U/L Total Protein 6.8 (6.5-8.0) g/dL Albumin 3.7 (3.5-5.0) g/dL COVID-19 (LAURA) (Negative) COVID-19 Clin Com 04/26/22 Range/Units 19:27 WBC (4.8-10.8) X10*3/uL RBC (4.20-5.50) X10*6/uL Hgb (12.0-16.0) g/dl Hct (37.0-47.0) % MCV (80.0-98.0) fL MCH (27.0-33.0) pg MCHC (31.0-35.0) g/dl RDW (11.0-16.0) % Plt Count (160-400) X10*3/uL MPV (9.4-12.3) fL Immature Gran % (Auto) (0.0-0.4) % Neut % (Auto) (45-73) % Lymph % (Auto) (20-40) % Schoolcraft % (Auto) (2-11) % Eos % (Auto) (0-4) % Baso % (Auto) (0-2) % Lymph # (Auto) (1.2-4.9) X10*3/uL Schoolcraft # (Auto) (0.1-1.2) X10*3/uL Eos # (Auto) (0.0-0.4) X10*3/uL Baso # (Auto) (0.0-0.2) X10*3/uL Abs Immat Gran (auto) (0.00-0.03) X10*3/uL Absolute Neuts (auto) (2.0-8.3) x10*3/uL Absolute Nucleated RBC (0.0-0.012) X10*3/uL Nucleated RBC % (auto) (0.0-0.2) /100WBC Smear Tech's Comments Sodium (135-145) mmol/L Potassium (3.3-5.1) mmol/L Chloride (96-108) mmol/L Carbon Dioxide (22-29) mmol/L Anion Gap (12-20) BUN (9-16) mg/dL Creatinine (0.5-1.4) mg/dL Estim Creat Clear Calc Estimated GFR Random Glucose (60-115) mg/dL Lactic Acid (0.5-2.0) mmol/L Calcium (8.4-10.2) mg/dL Magnesium (1.6-2.6) mg/dL Total Bilirubin (0.0-1.0) mg/dL AST (5-31) U/L ALT (0-31) U/L Alkaline Phosphatase (39-117) U/L Total Protein (6.5-8.0) g/dL Albumin (3.5-5.0) g/dL COVID-19 (LAURA) Negative (Negative) COVID-19 Clin Com See Note ECG Data Attestation: I personally reviewed and interpreted this ECG as follows: Prior ECG tracings: available for review Interpretation: Ventricular rate of 118, WV normal, QRS normal, QT/QTC normal EKG with sinus t achycardia no ST elevations or inversions concerning for ischemia. No significant changes when compared to previous Critical Care Time Critical Care Time Critical Care Time: Yes Total Critical Care Time: 35 Attestation: I attest to this time spent taking care of the patient, obtaining history, physical, reviewing labs, imaging, speaking to my attending, Discharge Plan Discharge Clinical Impression: Pneumonia, Fever, Shortness of breath Patient Disposition: Admitted As Inpatient
[2022-04-26 18:55] VITALS: BP 102/33; BP 113/44; PULSE 116; PULSE 120; RESP 22; TEMP 39.5; O2SAT 90; O2SAT 98; BMI 29.2
[2022-04-26 19:00] VITALS: BP 113/44; PULSE 119; RESP 18; TEMP 38.9; O2SAT 96
[2022-04-26 19:30] LABS: Basophils Absolute Auto 0.1 X10*3/uL (0.0-0.2); Basophils Percent Auto 0.4 % (0-2); Eosinophils Percent Auto 0.1 % (0-4); Hematocrit 39.3 % (37.0-47.0); Hemoglobin 12.9 g/dl (12.0-16.0); Imm Gran Abs Auto 0.11 X10*3/uL (0.00-0.03); Imm Gran Pct Auto 0.6 % (0.0-0.4); Lymphocytes Absolute Auto 0.5 X10*3/uL (1.2-4.9); Lymphocytes Percent Auto 2.8 % (20-40); MANUAL DIFF FLAG SCAN; Mean Corpuscular HGB Conc 32.8 g/dl (31.0-35.0); Mean Corpuscular Hemoglobin 33.6 pg (27.0-33.0); Mean Corpuscular Volume 102.3 fL (80.0-98.0); Mean Platelet Volume 10.4 fL (9.4-12.3); Monocytes Absolute Auto 0.3 X10*3/uL (0.1-1.2); Monocytes Percent Auto 1.5 % (2-11); Neutrophils Absolute Auto 17.3 x10*3/uL (2.0-8.3); Neutrophils Percent Auto 94.6 % (45-73); Platelet Count 225 X10*3/uL (160-400); Red Blood Count 3.84 X10*6/uL (4.20-5.50); Red Cell Distribution Width 15.2 % (11.0-16.0); SCAN SMEAR FLAG 1; White Blood Count 18.3 X10*3/uL (4.8-10.8)
[2022-04-26 19:44] LABS: Lactic Acid 1.5 mmol/L (0.5-2.0)
[2022-04-26] MEDS: 0.9 % Sodium Chloride 1,905.09 ML 1905.09 ML IV (19:46)
[2022-04-26 19:47] LABS: COVID-19 Test Negative (Negative); IDNOW Serial# 16C4AD1C
[2022-04-26 19:48] LABS: Alanine Aminotransferase 15 U/L (0-31); Albumin Level 3.7 g/dL (3.5-5.0); Alkaline Phosphatase 138 U/L (39-117); Anion Gap 16 (12-20); Aspartate Amino Transferase 24 U/L (5-31); Bilirubin Total 0.7 mg/dL (0.0-1.0); Blood Urea Nitrogen 10 mg/dL (9-16); Calcium 9.1 mg/dL (8.4-10.2); Carbon Dioxide 23 mmol/L (22-29); Chloride 106 mmol/L (96-108); Creatinine Clr Calc Pharmacy 73.9; Estimated Glomerular Filt Rate > 60; Glucose Random 89 mg/dL (60-115); Magnesium 1.8 mg/dL (1.6-2.6); Potassium 3.7 mmol/L (3.3-5.1); Sodium 141 mmol/L (135-145); Total Protein 6.8 g/dL (6.5-8.0)
[2022-04-26] MEDS: cefEPime HCl 2 GM in 0.9 % Sodium Chloride 50 ML IV (19:48)
[2022-04-26 19:49] LABS: SLIDE REVIEW VERIFIED
[2022-04-26] MEDS: Acetaminophen Supp 650 MG SUPP.RECT PR (19:51)
[2022-04-26 20:00] VITALS: BP 111/85; PULSE 115; RESP 24; O2SAT 97
--- NOTE | 2022-04-26 20:22 | ECG_ITS ---
Test Reason : SEPSIS Blood Pressure : / mmHG Vent. Rate : 118 BPM Atrial Rate : 118 BPM P-R Int : 176 ms QRS Dur : 074 ms QT Int : 330 ms P-R-T Axes : 050 049 066 degrees QTc Int : 462 ms Poor data quality Sinus tachycardia RSR' or QR pattern in V1 suggests right ventricular conduction delay ST & T wave abnormality, consider lateral ischemia Abnormal ECG When compared with ECG of 25-FEB-2022 20:54, No significant change was found Referred By: Brad Valdes Electronically Signed By:KEITH MESA MD
[2022-04-26 20:51] LABS: Troponin-I High Sensitivity 8.5 ng/L (<3.5-17.0)
[2022-04-26 20:57] VITALS: BP 111/57; PULSE 121; RESP 22; TEMP 38.8; O2SAT 95
--- NOTE | 2022-04-26 21:54 | P.HPHOSP_ITS ---
History of Present Illness Date of Service: 04/26/22 Attending physician on admission: Carlota Alarcon Chief Complaint: cough, fever 61-year-old female a past medical history of Down syndrome, dementia,? dysphasia, seizures, history of chronic aspiration PNA, LEONIE on CPAP, HFpEF, full-time caregiver is her sister? as patient requires 24/7 care, nonverbal at baseline presented to ED this morning via EMS with her sister with generalized weakness, confusion from baseline, productive cough, fevers, chills for the past 2 days. Her sister states that at baseline she is nonverbal with the exception of 3-4 words occasionally but has had increased weakness over the past few days with fever of 102. Her sister states that she has recurrent respiratory infections treated outpatient by Dr. Whitlock inpulmonology, typically with doxycycline and levalbuterol nebs. She states she did give her a dose of doxycycline around 14:00 and then reports patient had an episode of diarrhea but this was the 1st occurrence in recent history. She was recently admitted to ICU step-down to Medicine for acute hypoxemic respiratory failure with hypotension requiring vasopressors though no intubation and visit was complicated by aspiration pneumonia and MSSA bacteremia. She has been declining since though h as had VNA and occupational therapy in the home. She also has a decubitus ulcer on the sacrum it being monitored by VNA. On arrival, patient febrile to 103.1, tachycardic to 116, tachypneic to 22 and noted to be hypoxic by EMS started on 2 L via nasal cannula currently satting at 98%. No hypotension. WBC 18.3. Lactic acid 1.5. Renal function and electrolyte levels normal. Troponin negative. BNP pending. ESR and CRP pending. UA pending. CXR showed diffuse interstitial prominence with peribronchial cuffing and hazy opacities favoring edema. Subsequent chest CT showing interstitial edema with some alveolar airspace disease in the lung bases consistent with CHF though no pleural effu sions. The dense consolidation previously seen at the right lung base in 02/25/2022 has resolved. Incidental finding of aberrant right subclavian artery and mild degenerative changes in the spine. EKG showed sinus tachycardia, rate [address] elevations or inversions, no significant change compared to prior EKG. She did have echo performed during last admission on 03/04/2022 showing normal LV size, thickness, systolic function, and wall motion with EF estimated at 55-60% with diastolic dysfunction noted and elevated filling pressures. Patient to be admitted for sepsis of unclear etiology at this time. Given 2L IVF in ED as well as 1g IV ceftriaxone and 650mg acetaminophen. Review of Systems Review of Systems: Yes Unobtainable due to mental condition [facility] Medical History (Updated 05/03/22 @ 13:38 by Mercedes Corbett RN) Aspiration into airway Aspiration pneumonia Dementia Diastolic heart failure Down syndrome Dysphagia Dysphagia causing pulmonary aspiration with swallowing Epilepsy G tube feedings Hypoxemia MSSA bacteremia LEONIE on CPAP Physical deconditioning Pneumonia Respiratory distress Seizure disorder Toxic metabolic encephalopathy Unspecified skin changes Surgical History (Updated 05/03/22 @ 13:38 by Mercedes Corbett RN) History of back surgery Social History Household Members: Family Household Members Other:: sister Housing: House Do you presently have visiting nurse or other home services: Yes Patient Tobacco Use Status: Never used Tobacco Smoked in Last 30 Days: No Use of substances other than those prescribed or required for medical reasons: No Currently Displaying Signs/Symptoms of Drug Intoxication Withdrawal: No Any prior treatment program specific to substance use: No Have you been hit, kicked, punched, or otherwise hurt by someone within the past year? If so, by whom?: No Do you feel safe in your current relationship?: No Current Relationship Is there a partner from a previous relationship who is making you feel unsafe now?: No Are you made to feel afraid or neglected: No Are you DNR?: No Advance Directives: No Advance Directives Information Provided: Yes Advance Directives on File: Yes Do you have thoughts of harming others: None Do you have a plan to hurt others: No Plan Recently lost weight without trying: No How much weight loss: Not applicable Eating poorly because of decreased appetite: No Nutrition screen score: 0 Nutrition Risks: No Nutritional Risk Patient : No : No Poor oral hygiene: No service: No Current occupational status: disabled Meds Allergies Allergy/AdvReac Type Severity Reaction Status Date / Time fentanyl [FENTANYL] Allergy Intermediate UNKNOWN Verified 03/30/22 15:35 codeine [CODEINE] Allergy Unknown UNKNOWN Verified 03/30/22 15:35 lorazepam [From ATIVAN] Allergy Unknown UNKNOWN Verified 03/30/22 15:35 oxcarbazepine [OXCARBAZEPINE] Allergy Unknown UNKNOWN Verified 03/30/22 15:35 penicillin V Allergy Unknown Unknown Verified 03/30/22 15:35 Penicillins [PENICILLINS] Allergy Unknown DIFFICULTY Verified 03/30/22 15:35 BREATHING Sulfa (Sulfonamide Allergy Unknown DIFFICULTY Verified 03/30/22 15:35 Antibiotics) BREATHING [SULFA (SULFONAMIDE ANTIBIOTICS)] levofloxacin [From LEVAQUIN] AdvReac Intermediate hallucinati Verified 03/30/22 15:35 ons doxycycline AdvReac Mild Diarrhea Verified 04/30/22 08:07 Active Medications: Current Medications Acetaminophen (Acetaminophen Supp 650 Mg Supp.Rect) 650 mg W[place] Q4H PRN PRN Reason: Fever Enoxaparin Sodium (Enoxaparin Sodium 40 Mg/0.4 Ml Syringe) 40 mg SUBCUT Q24H [facility] Cefepime HCl 2 gm/ Sodium (Chloride) 50 mls @ 100 mls/hr IV Q8H [facility] Pharmacy Consult (Consult Rx Perform Med Rec) 1 each MISCELLANE ONCE PRN PRN Reason: Consult order Pharmacy Consult (Consult Rx Vancomycin Dosing) 1 each MISCELLANE DAILY PRN PRN Reason: Consult order Sodium Chloride (0.9 % Sodium Chloride Flush 3 Ml Syringe) 3 ml IVFLUSH QSHIFT [facility] Home Medications Medication Instructions Recorded Confirmed Last Taken Type donepezil 5 mg disintegrating 5 mg PO DAILY@219910/21/20 04/26/22 04/25/22 History tablet ipratropium bromide 21 mcg (0.03 2 spray intranasal BEDTIME 10/21/20 04/26/22 04/25/22 History %) nasal spray levothyroxine 88 mcg tablet 88 mcg PO DAILY@102910/21/20 04/26/22 04/26/22 History lacosamide 10 mg/mL oral solution 100 mg PO BEDTIME@202910/09/21 04/26/22 04/25/22 History (Vimpat) levetiracetam 100 mg/mL oral 1,350 mg PO BEDTIME@202910/09/21 04/26/22 04/25/22 History solution (Keppra) levetiracetam 100 mg/mL oral 200 mg DAILY@89910/09/21 04/26/22 04/26/22 History solution (Keppra) omeprazole magnesium 2.5 mg oral 2.5 mg PO DAILY 10/09/21 04/26/22 04/26/22 History suspension,delayed release acetaminophen 325 mg tablet 650 mg PO BEDTIME 02/25/22 04/26/22 04/25/22 History (Tylenol) lamotrigine 25 mg chewable 25 mg PO BID 02/25/22 04/26/22 04/26/22 History dispersible tablet levetiracetam 100 mg/mL oral 50 mg PO DAILY PRN Seizure Activity 02/25/22 04/26/22 04/26/22 History solution levetiracetam 100 mg/mL oral 50 mg PO DAILY@0400 02/25/22 04/26/22 04/26/22 History solution midazolam 5 mg/spray (0.1 mL) 5 mg intranasal DAILY PRN Seizure 02/25/22 04/26/22 Unknown History nasal spray (Nayzilam) Activity nystatin 100,000 unit/gram topical 1 appl topical TID 02/25/22 04/26/22 04/26/22 History cream polyethylene glycol 3350 17 gram 17 g PO DAILY 02/25/22 04/26/22 04/26/22 History oral powder packet (Miralax) Lactobacillus acidophilus 0.5 mg 3 tab PO DAILY 04/26/22 04/26/22 04/26/22 History (100 million cell) tablet Physical Exam Vital Signs and Narrative: Vital Signs: Last Vital Signs Temp 101.8 F H 04/26/22 20:57 Pulse 121 H 04/26/22 20:57 Resp 22 H 04/26/22 20:57 BP 111/57 L 04/26/22 20:57 Pulse Ox 95 04/26/22 20:57 O2 Del Method 04/26/22 20:57 O2 Flow Rate 2 04/26/22 20:57 Oxygen Flow Rate 2 04/26/22 18:55 BMI result Body Mass Index 29.2 Constitutional - somnolent, febrile, tremulous Eyes - PERRLA, EOMI Cardiovascular - S1S2, RRR, 3+ edema BLE Respiratory - Normal lung expansion, Normal respiratory effort, No respiratory distress on 3L supplemental O2, diffuse rhonchi/coarse crackles bilaterally Gastrointestinal - NT / ND; +BS; No rebound or guarding Extremities - no calf tenderness bilaterally, no swelling Skin - Warm/Dry. Stage I/II decubitus ulcer bilateral buttock/sacrum limited to skin breakdown without surrounding erythema, without warmth, without purulent drainage Neurological - somnolent, unable to participate in exam due to mental status Results Labs CBC and Chem 7: 05/04/22 05:40 05/02/22 07:09 Labs: Laboratory Results - last 24 hr 04/26/22 04/26/22 04/26/22 19:15 19:15 19:15 MCV 102.3 H MCH 33.6 H MCHC 32.8 RDW 15.2 Plt Count 225 MPV 10.4 Immature Gran % (Auto) 0.6 H Neut % (Auto) 94.6 H Lymph % (Auto) 2.8 L Republic % (Auto) 1.5 L Eos % (Auto) 0.1 Baso % (Auto) 0.4 Lymph # (Auto) 0.5 L Republic # (Auto) 0.3 Eos # (Auto) 0.0 Baso # (Auto) 0.1 Abs Immat Gran (auto) 0.11 H Absolute Neuts (auto) 17.3 H Absolute Nucleated RBC 0.000 Nucleated RBC % (auto) 0.0 Smear Tech's Comments VERIFIED Anion Gap 16 Estim Creat Clear Calc 73.9 Estimated GFR > 60 Random Glucose 89 Lactic Acid 1.5 Calcium 9.1 Magnesium 1.8 Total Bilirubin 0.7 AST 24 ALT 15 Alkaline Phosphatase 138 H Troponin I High Sens Total Protein 6.8 Albumin 3.7 COVID-19 ([facility]) COVID-19 Clin Com 04/26/22 04/26/22 19:15 19:27 MCV MCH MCHC RDW Plt Count MPV Immature Gran % (Auto) Neut % (Auto) Lymph % (Auto) Republic % (Auto) Eos % (Auto) Baso % (Auto) Lymph # (Auto) Republic # (Auto) Eos # (Auto) Baso # (Auto) Abs Immat Gran (auto) Absolute Neuts (auto) Absolute Nucleated RBC Nucleated RBC % (auto) Smear Tech's Comments Anion Gap Estim Creat Clear Calc Estimated GFR Random Glucose Lactic Acid Calcium Magnesium Total Bilirubin AST ALT Alkaline Phosphatase Troponin I High Sens 8.5 D Total Protein Albumin COVID-19 ([facility]URA) Negative COVID-19 Clin Com See Note Imaging Radiologist's Impressions: Impressions Chest X-Ray 04/26/22 20:08 IMPRESSION: Diffuse interstitial prominence with peribronchial cuffing and hazy opacities. Edema is favored with this appearance. Chest CT 04/26/22 21:27 IMPRESSION: 1. Interstitial edema with some alveolar airspace disease in the lung bases consistent with CHF. It is a bit unusual that there are no pleural effusions. 2. The dense consolidation seen at the right lung base on the 02/25/2022 study has resolved. 3. Incidental note made of an aberrant right subclavian artery and mild degenerative changes in the spine. Fleischner guidelines were followed. Assessment and Plan (1) Cough: Status: Acute (2) CHF exacerbation: Status: Acute (3) Sepsis: Status: Acute Plan 61-year-old female a past medical history of Down syndrome, dementia,? dysphasia, seizures, history of chronic aspiration PNA, LEONIE on CPAP, full-time caregiver is her sister? as patient requires 24/7 care, nonverbal at baseline admitted for sepsis of unspecified cause and CHF exacerbation #Sepsis- etiology unclear at this time -febrile to 103.1, tachycardic to 116, tachypneic to 22. Lactic acid normal. No evidence of end-organ dysfunction or hypotension. -CXR negative for pneumonia -decubitus ulcer does not appear infected -UA pending -negative for COVID-19. Respiratory panel pending -patient did have single episode of diarrhea per her mining professionals. Low suspicion for C diff but C diff/GI panel pending -cover with broad spectrum antibiotics until sepsis etiology known. IV cefepime and vanco ordered -history of MSSA bacteremia treated with cefazolin. Follow blood cultures -admit to telemetry #Acute hypoxemic respiratory failure- secondary to CHF exacerbation -continue supplemental O2 to maintain oximetry greater than 92% # acute cough -respiratory panel pending. Negative for COVID-19 -continue levalbuterol nebulizations -CXR negative for pneumonia -guaifenesin p.r.n. # acute CHF exacerbation -chest CT with interstitial edema -echocardiogram 02/2022 showing normal LV systolic function with preserved ejection fraction 55-60% but with abnormal diastolic dysfunction -BNP pending -troponin negative -EKG showing sinus tachycardia without any acute PRIETO or inversion -IV Lasix 40 mg once -strict I&O-Alexander catheter placed as patient is incontinent of urine -daily weights -NPO for now due to increased risk of aspiration given her cough and history of chronic aspiration. Consider cardiac diet pending nursing swallow eval. Patient is on pureed solids and thicken liquids at home. -cardiology consult placed -follow BMP # LEONIE -continue CPAP # hypothyroidism -continue levothyroxine # history of seizures -no recent seizure activity -continue home meds # dementia, unspecified type-baseline without behavioral disturbance -continue home meds #Stage I/II decubitus ulcer sacrum/bilateral buttock -present on arrival -reposition q.2h and barrier cream DVT prophylaxis-Lovenox Full code Patient requires inpatient stay of at least 2 midnights due to sepsis of unclear etiology with further workup required on broad-spectrum antibiotics and with acute CHF exacerbation with acute hypoxemic respiratory failure requiring IV diuresis and supplemental O2 with close monitoring for cardiopulmonary decompensation Quality Stroke Does the patient have a stroke diagnosis?: No VTE Prior VTE?: No VTE Risk Level:: Medical - moderate - high VTE Device Contraindication: Treatment Not Indicated VTE Drug Contraindication: N/A - Med Ordered
[2022-04-26 22:04] LABS: Troponin-I High Sensitivity 16.9 ng/L (<3.5-17.0)
[2022-04-26 22:08] LABS: C Reactive Protein 13.54 mg/dL (< or = 0.50)
[2022-04-26 22:11] LABS: Influenza A PCR NEGATIVE (Negative); Influenza B PCR NEGATIVE (Negative); Resp Syncy Virus RNA Qual PCR NEGATIVE (Negative); SARS COV2 PCR INHOUSE NEGATIVE (Negative)
[2022-04-26 22:17] LABS: B Type Natriuretic Peptide 64 pg/mL (<100)
--- NOTE | 2022-04-26 22:17 | PHA.MEDREC ---
Pharmacy Consult ? Medication Reconciliation Pharmacy has completed the medication reconciliation.
[2022-04-26 22:34] VITALS: PULSE 115
[2022-04-26 22:59] VITALS: PULSE 116; RESP 26; TEMP 38.3; O2SAT 95
[2022-04-26] MEDS: Acetaminophen Supp 325 MG SUPP.RECT PR (22:59)
[2022-04-26 23:00] LABS: Erythrocyte Sedimentation Rate 34 MM/HR (0-20)
[2022-04-26] MEDS: Enoxaparin Sodium 40 MG/0.4 ML SYRINGE SUBCUT (23:12)
[2022-04-26] MEDS: Furosemide 40 MG/4 ML VIAL IVPUSH (23:12)
[2022-04-26] MEDS: vancomycin HCL 1,500 MG in 0.9 % Sodium Chloride 500 ML 333.33 MG IV (23:25)
[2022-04-26 23:42] LABS: Appearance Urine Clear; Color Urine Yellow; Glucose Urine UA Negative (Negative); Leukocyte Esterase Urine Negative (Negative); Nitrite Urine Negative (Negative); Specific Gravity - Urine 1.015 (1.005-1.025); Urine Blood Negative (Negative); Urine Ketones Negative (Negative); Urine Protein Negative (Neg-Trace)
[2022-04-27] VITALS (7 sets, daily range): BP systolic 90–122; BP diastolic 49–65; PULSE 73–110; RESP 12–19; TEMP 36.1–37.2; O2SAT 90–100; BMI 29.2
[2022-04-27] MEDS: 0.9 % Sodium Chloride Flush 3 ML SYRINGE IVFLUSH ×3 (00:55→22:06)
[2022-04-27] MEDS: levETIRAcetam Oral Soln 500 MG/5 ML 1350 MG PO (01:36)
[2022-04-27] MEDS: cefEPime HCl 2 GM in 0.9 % Sodium Chloride 50 ML IV ×3 (03:15→21:41)
[2022-04-27] MEDS: levETIRAcetam Oral Soln 500 MG/5 ML 50 MG PO (05:40)
[2022-04-27 06:22] LABS: Basophils Absolute Auto 0.1 X10*3/uL (0.0-0.2); Basophils Percent Auto 0.3 % (0-2); Eosinophils Percent Auto 0.1 % (0-4); Hematocrit 38.5 % (37.0-47.0); Hemoglobin 12.5 g/dl (12.0-16.0); Imm Gran Abs Auto 0.18 X10*3/uL (0.00-0.03); Imm Gran Pct Auto 0.8 % (0.0-0.4); Lymphocytes Absolute Auto 1.8 X10*3/uL (1.2-4.9); Lymphocytes Percent Auto 7.7 % (20-40); MANUAL DIFF FLAG SCAN; Mean Corpuscular HGB Conc 32.5 g/dl (31.0-35.0); Mean Corpuscular Hemoglobin 33.2 pg (27.0-33.0); Mean Corpuscular Volume 102.1 fL (80.0-98.0); Mean Platelet Volume 10.6 fL (9.4-12.3); Monocytes Absolute Auto 0.7 X10*3/uL (0.1-1.2); Neutrophils Absolute Auto 20.7 x10*3/uL (2.0-8.3); Neutrophils Percent Auto 88.1 % (45-73); Platelet Count 208 X10*3/uL (160-400); Red Blood Count 3.77 X10*6/uL (4.20-5.50); Red Cell Distribution Width 15.2 % (11.0-16.0); SCAN SMEAR FLAG 1; White Blood Count 23.4 X10*3/uL (4.8-10.8)
[2022-04-27 06:39] LABS: Anion Gap 14 (12-20); Blood Urea Nitrogen 10 mg/dL (9-16); Calcium 8.4 mg/dL (8.4-10.2); Carbon Dioxide 23 mmol/L (22-29); Chloride 109 mmol/L (96-108); Creatinine Clr Calc Pharmacy 72.8; Estimated Glomerular Filt Rate > 60; Glucose Random 89 mg/dL (60-115); Potassium 3.4 mmol/L (3.3-5.1); Sodium 143 mmol/L (135-145)
[2022-04-27 07:44] LABS: SLIDE REVIEW VERIFIED
--- NOTE | 2022-04-27 07:44 | PHA.PROG ---
Admission Date/Time: April 26, 2022 21:39 Indication: Sepsis Weight in k.503 kg Adjusted body weight in K.9 Gaylord body weight in K.9 Obesity Dosing Indication % IBW: OBESE Serum Creatinine - Last 168 Hours 04/26/22 04/27/22 19:15 05:38 Creatinine 0.63 0.64 Estimated CrCl and GFR - Last 168 Hours 04/26/22 04/27/22 19:15 05:38 Estim Creat Clear Calc 73.9 72.8 Estimated GFR > 60 > 60 Vancomycin Loading Dose: 1500mg Current Vancomycin Dosing Regimen: 750 mg Q12H Vancomycin Monitoring using AUC goal of 400 - 600 range with trough as surrogate marker: 544 mg/L/hr Date and Time for next Vancomycin Level to be drawn: 04/28/22 @0900 Pharmacist Comments on Vancomycin Plan: Obese Model Used. Patient has sepsis, therefore, aggressive dosing is necessary. Patient is below 65 years old therefore Q12H dosing was chosen. However, given the age of 61 renal function may change. Kidney function is monitored daily, therefore if frequency adjustment is needed this can be assessed. Patient received proper load of about 24 mg/kg. Level to be drawn 04/28 @0900 to assess safety/ efficacy. Vancomycin dosing will take advantage of Audience as a clinical decision support tool that uses Bayesian modeling to calculate individual patient's pharmacokinetic parameters and forecast the patient's drug concentration time course with the target goal AUC 24 range of 400 - 600 mg/L/hr.
--- NOTE | 2022-04-27 09:08 | MHC.CM.PN ---
CM met with Patient and her Sister/multimedia editor Caregiver/HCP/Denise and addressed IMM with Denise (Patient has Dementia & Downs Syndrome)and provided Denise with the original and placed a copy on the chart. Patient lives in a house with Denise and she is mostly bed bound at baseline. Patient is active with [facility] and home/resume said services is the goal. CM has initiated and will follow for dc planning. Patient has received Moderna/Covid vax X3 and Patient's PCP is Dr. Scot Cunningham.
[2022-04-27] MEDS: vancomycin HCL 750 MG in 0.9 % Sodium Chloride 250 ML 265 MG IV ×2 (10:55→23:09)
[2022-04-27] MEDS: levETIRAcetam 500 MG/5 ML VIAL 200 MG IVPUSH (12:01)
--- NOTE | 2022-04-27 13:06 | P.CNID_ITS ---
History of Present Illness Data of Consult Service Date: 04/27/22 Requesting physician: Lisa Munoz Primary Care Provider: Unknown Physician HPI Reason for consult: shortness of breath She presents to ER with shortness of breath. She has temperature to 103.1 I had seen her last month with respiratory failure and she recieved four weeks IV Kefzol and stopped in March. She has CXR showed resolved bacterial pneumonia but increased interstitial markings Review of Systems Review of Systems: Yes Unobtainable due to mental condition [facility] Past Medical History Medical History Aspiration into airway Aspiration pneumonia Dementia Diastolic heart failure Down syndrome Down syndrome Dysphagia Dysphagia causing pulmonary aspiration with swallowing Epilepsy Hypoxemia MSSA bacteremia MSSA bacteremia LEONIE on CPAP Physical deconditioning Pneumonia Pneumonia Respiratory distress Seizure disorder Toxic metabolic encephalopathy Unspecified skin changes Family History Family history: reviewed and not pertinent Social History Social History Household Members: Family Household Members Other:: sister Housing: House Do you presently have visiting nurse or other home services: Yes Patient Tobacco Use Status: Never used Tobacco Smoked in Last 30 Days: No Use of substances other than those prescribed or required for medical reasons: No Currently Displaying Signs/Symptoms of Drug Intoxication Withdrawal: No Any prior treatment program specific to substance use: No Have you been hit, kicked, punched, or otherwise hurt by someone within the past year? If so, by whom?: No Do you feel safe in your current relationship?: No Current Relationship Is there a partner from a previous relationship who is making you feel unsafe now?: No Are you made to feel afraid or neglected: No Advance Directives: No Advance Directives Information Provided: Yes Advance Directives on File: Yes Do you have thoughts of harming others: None Do you have a plan to hurt others: No Plan Recently lost weight without trying: No How much weight loss: Not applicable Eating poorly because of decreased appetite: No Nutrition screen score: 0 Nutrition Risks: No Nutritional Risk Patient : No : No Poor oral hygiene: No service: No Current occupational status: disabled Meds Allergies Allergy/AdvReac Type Severity Reaction Status Date / Time fentanyl [FENTANYL] Allergy Intermediate UNKNOWN Verified 03/30/22 15:35 codeine [CODEINE] Allergy Unknown UNKNOWN Verified 03/30/22 15:35 lorazepam [From ATIVAN] Allergy Unknown UNKNOWN Verified 03/30/22 15:35 oxcarbazepine [OXCARBAZEPINE] Allergy Unknown UNKNOWN Verified 03/30/22 15:35 penicillin V Allergy Unknown Unknown Verified 03/30/22 15:35 Penicillins [PENICILLINS] Allergy Unknown DIFFICULTY Verified 03/30/22 15:35 BREATHING Sulfa (Sulfonamide Allergy Unknown DIFFICULTY Verified 03/30/22 15:35 Antibiotics) BREATHING [SULFA (SULFONAMIDE ANTIBIOTICS)] levofloxacin [From LEVAQUIN] AdvReac Intermediate hallucinati Verified 03/30/22 15:35 ons Active Medications: Current Medications Acetaminophen (Acetaminophen Supp 650 Mg Supp.Rect) 650 mg [place] Q4H PRN PRN Reason: Fever Donepezil HCl (Donepezil Hcl 5 Mg Tablet) 5 mg PO DAILY@2200 [facility] Enoxaparin Sodium (Enoxaparin Sodium 40 Mg/0.4 Ml Syringe) 40 mg SUBCUT Q24H [facility] Last Admin: 04/26/22 23:12 Dose: 40 mg Guaifenesin (Guaifenesin 200 Mg/10 Ml 10 Ml Liquid) 10 ml PO Q6H PRN PRN Reason: Cough Cefepime HCl 2 gm/ Sodium (Chloride) 50 mls @ 100 mls/hr IV Q8H [facility] Last Infusion: 04/27/22 12:48 Dose: Infused Vancomycin HCl 750 mg/ Sodium (Chloride) 265 mls @ 265 mls/hr IV Q12H [facility] Last Infusion: 04/27/22 12:01 Dose: Infused Levetiracetam 1,350 mg/ Sodium (Chloride) 113.5 mls @ 227 mls/hr IV BEDTIME [facility] Lamotrigine (Lamotrigine 25 Mg Tablet) 25 mg PO BID [facility] Last Admin: 04/27/22 09:14 Dose: Not Given Levalbuterol HCl (Levalbuterol Hcl 1.25 Mg/0.5 Ml Vial.Neb) 1.25 mg INHALE Q2H PRN PRN Reason: Shortness of Breath/Wheezing Levetiracetam (Levetiracetam 500 Mg/5 Ml Vial) 200 mg IVPUSH DAILY@0900 [facility] Last Admin: 04/27/22 12:01 Dose: 200 mg Levetiracetam (Levetiracetam 500 Mg/5 Ml Vial) 50 mg IVPUSH DAILY@040 [facility] Levetiracetam (Levetiracetam 500 Mg/5 Ml Vial) 50 mg IVPUSH DAILY PRN PRN Reason: Seizure Activity Levothyroxine Sodium (Levothyroxine Sodium 88 Mcg Tablet) 88 mcg PO DAILY@103 [facility] Last Admin: 04/27/22 09:15 Dose: Not Given Patient Own ( Lacosamide [Vimpat] 10 Mg/Ml Solution) 100 mg PO BEDTIME@2029 [facility] Pt Own (Midazolam [ Nayzilam] 5 Mg/[place] (0.1 Ml) [place],Non- Aerosol) 5 mg NOSTRIL-B DAILY PRN PRN Reason: Seizure Activity Nystatin (Nystatin Cream 15 Gm Tube) 1 appl TOPICAL TID [facility]; Protocol Last Admin: 04/27/22 12:08 Dose: Not Given Omeprazole (Omeprazole 20 Mg/10 Ml Susp.Recon) 2.5 mg PO DAILY [facility] Last Admin: 04/27/22 09:15 Dose: Not Given Pharmacy Consult (Consult Rx Perform Med Rec) 1 each MISCELLANE ONCE PRN PRN Reason: Consult order Pharmacy Consult (Consult Rx Vancomycin Dosing) 1 each MISCELLANE DAILY PRN PRN Reason: Consult order Polyethylene Glycol (Polyethylene Glycol 3350 17 Gm Powd.Pack) 17 gm PO DAILY [facility] Last Admin: 04/27/22 09:15 Dose: Not Given Sodium Chloride (0.9 % Sodium Chloride Flush 3 Ml Syringe) [facility] Admin: 04/27/22 12:08 Dose: Not Given Home Medications Medication Instructions Recorded Confirmed Last Taken Type donepezil 5 mg disintegrating 5 mg PO DAILY@219910/21/20 04/26/22 04/25/22 History tablet ipratropium bromide 21 mcg (0.03 2 spray intranasal BEDTIME 10/21/20 04/26/22 04/25/22 History %) nasal spray levothyroxine 88 mcg tablet 88 mcg PO DAILY@10310/21/20 04/26/22 04/26/22 History lacosamide 10 mg/mL oral solution 100 mg PO BEDTIME@202910/09/21 04/26/22 04/25/22 History (Vimpat) levetiracetam 100 mg/mL oral 1,350 mg PO BEDTIME@2030 10/09/21 04/26/22 04/25/22 History solution (Keppra) levetiracetam 100 mg/mL oral 200 mg DAILY@0900 10/09/21 04/26/22 04/26/22 History solution (Keppra) omeprazole magnesium 2.5 mg oral 2.5 mg PO DAILY 10/09/21 04/26/22 04/26/22 History suspension,delayed release acetaminophen 325 mg tablet 650 mg PO BEDTIME 02/25/22 04/26/22 04/25/22 History (Tylenol) lamotrigine 25 mg chewable 25 mg PO BID 02/25/22 04/26/22 04/26/22 History dispersible tablet levetiracetam 100 mg/mL oral 50 mg PO DAILY PRN Seizure Activity 02/25/22 04/26/22 04/26/22 History solution levetiracetam 100 mg/mL oral 50 mg PO DAILY@0400 02/25/22 04/26/22 04/26/22 History solution midazolam 5 mg/spray (0.1 mL) 5 mg intranasal DAILY PRN Seizure 02/25/22 04/26/22 Unknown History nasal spray (Nayzilam) Activity nystatin 100,000 unit/gram topical 1 appl topical TID 02/25/22 04/26/22 04/26/22 History cream polyethylene glycol 3350 17 gram 17 g PO DAILY 02/25/22 04/26/22 04/26/22 History oral powder packet (Miralax) Lactobacillus acidophilus 0.5 mg 3 tab PO DAILY 04/26/22 04/26/22 04/26/22 Hi story (100 million cell) tablet Physical Exam Vital Signs: Vital Signs: Last Vital Signs Temp 98.1 F 04/27/22 11:52 Pulse 73 04/27/22 11:52 Resp 12 04/27/22 11:52 BP 99/49 L 04/27/22 11:52 Pulse Ox 99 04/27/22 11:52 O2 Del Method 04/27/22 11:52 O2 Flow Rate 2 04/27/22 11:52 Oxygen Flow Rate 2 04/26/22 18:55 BMI result Body Mass Index 29.2 Resp: Auscultation: rhonchi Psych: Appearance: well kempt Results Labs CBC & Chem 7: 04/27/22 05:38 04/27/22 05:38 Labs: Short CBC 04/26/22 04/27/22 Range/Units 19:15 05:38 WBC 18.3 H 23.4 H (4.8-10.8) X10*3/uL Hgb 12.9 12.5 (12.0-16.0) g/dl Hct 39.3 38.5 (37.0-47.0) % Plt Count 225 208 (160-400) X10*3/uL BMP 04/26/22 04/27/22 19:15 05:38 Sodium 141 143 Potassium 3.7 3.4 Chloride 106 109 H Carbon Dioxide 23 23 BUN 10 10 Creatinine 0.63 0.64 Calcium 9.1 8.4 D Liver Function 04/26/22 Range/Units 19:15 Total Bilirubin 0.7 (0.0-1.0) mg/dL AST 24 (5-31) U/L ALT 15 (0-31) U/L Alkaline Phosphatase 138 H (39-117) U/L Albumin 3.7 (3.5-5.0) g/dL Urine 04/26/22 Range/Units 22:55 Urine Color Yellow Urine Appearance Clear Urine pH 6.0 (5.0-9.0) Ur Specific [place] 1.015 (1.005-1.025) Urine Protein Negative (Neg-Trace) mg/dL Urine Glucose (UA) Negative (Negative) mg/dL Assessment and Plan (1) Cough: Status: Acute (2) Sepsis: Status: Acute (3) Fever: Status: Acute This is possible recurrent bacterial pneumonia. MSSA is in differential also gram negative. Doubt she has atypical pneumonia may have CHF. Plan Vanessa continue Van comycin and Cefepime. Stop Vancomycin if negative MRSA nares. Likely 3-5 days IV antibiotics and then po Doxycycline
--- NOTE | 2022-04-27 14:51 | P.PNIM_ITS ---
Subjective Subjective Date of Service: 04/27/22 Interval History: Sepsis-possible sec to aspirational pneumonia , toxic metabolic encephalopathy Review of Systems patient is little more awake this morning, her sisters at bedside. no fevers ,unable to answer Physical Exam Vital Signs: Vital Signs: Last Vital Signs Temp 98.1 F 04/27/22 11:52 Pulse 73 04/27/22 11:52 Resp 12 04/27/22 11:52 BP 99/49 L 04/27/22 11:52 Pulse Ox 99 04/27/22 11:52 O2 Del Method 04/27/22 11:52 O2 Flow Rate 2 04/27/22 11:52 Oxygen Flow Rate 2 04/26/22 18:55 BMI result Body Mass Index 29.2 Appearance: awake ,seems generally weak cvs: rrr, [id number] . res: diminshed breath sounds , more rhonchii right base>left side abd: no rebound or guarding ,nt, bs present. ext pulses present , no cyanosis , skin : stage 1/2 decubtii/sacrum neuro: awake ,intermittent sleepy Objective Data Active Medications Acetaminophen (Acetaminophen Supp 650 Mg Supp.Rect) 650 mg [place] Q4H PRN PRN Reason: Fever Donepezil HCl (Donepezil Hcl 5 Mg Tablet) 5 mg PO DAILY@2200 [facility] Enoxaparin Sodium (Enoxaparin Sodium 40 Mg/0.4 Ml Syringe) 40 mg SUBCUT Q24H [facility] Last Admin: 04/26/22 23:12 Dose: 40 mg Documented By: GRISELDA Guaifenesin (Guaifenesin 200 Mg/10 Ml 10 Ml Liquid) 10 ml PO Q6H PRN PRN Reason: Cough Cefepime HCl 2 gm/ Sodium (Chloride) 50 mls @ 100 mls/hr IV Q8H [facility] Last Infusion: 04/27/22 12:48 Dose: 0 mls/hr Documented By: RAO Vancomycin HCl 750 mg/ Sodium (Chloride) 265 mls @ 265 mls/hr IV Q12H [facility] Last Infusion: 04/27/22 12:01 Dose: 0 mls/hr Documented By: RAO Levetiracetam 1,350 mg/ Sodium (Chloride) 113.5 mls @ 227 mls/hr IV BEDTIME [facility] Lamotrigine (Lamotrigine 25 Mg Tablet) 25 mg PO BID [facility] Last Admin: 04/27/22 09:14 Dose: Not Given Documented By: RAO Non-Admin Reason: NPO Levalbuterol HCl (Levalbuterol Hcl 1.25 Mg/0.5 Ml Vial.Neb) 1.25 mg INHALE Q2H PRN PRN Reason: Shortness of Breath/Wheezing Levetiracetam (Levetiracetam 500 Mg/5 Ml Vial) 200 mg IVPUSH DAILY@0900 [facility] Last Admin: 04/27/22 12:01 Dose: 200 mg Documented By: RAO Comments: med unavailable at 0900 Levetiracetam (Levetiracetam 500 Mg/5 Ml Vial) 50 mg IVPUSH DAILY@0400 [facility] Levetiracetam (Levetiracetam 500 Mg/5 Ml Vial) 50 mg IVPUSH DAILY PRN PRN Reason: Seizure Activity Levothyroxine Sodium (Levothyroxine Sodium 88 Mcg Tablet) 88 mcg PO DAILY@1030 [facility] Last Admin: 04/27/22 09:15 Dose: Not Given Documented By: RAO Non-Admin Reason: NPO Patient Own ( Lacosamide [Vimpat] 10 Mg/Ml Solution) 100 mg PO BEDTIME@2030 [facility] Pt Own (Midazolam [ Nayzilam] 5 Mg/[place] (0.1 Ml) [place],Non- Aerosol) 5 mg NOSTRIL-B DAILY PRN PRN Reason: Seizure Activity Nystatin (Nystatin Cream 15 Gm Tube) 1 appl TOPICAL TID [facility]; Protocol Last Admin: 04/27/22 12:08 Dose: Not Given Documented By: RAO Non-Admin Reason: proxy refused Omeprazole (Omeprazole 20 Mg/10 Ml Susp.Recon) 2.5 mg PO DAILY [facility] Last Admin: 04/27/22 09:15 Dose: Not Given Documented By: RAO Non-Admin Reason: NPO Pharmacy Consult (Consult Rx Perform Med Rec) 1 each MISCELLANE ONCE PRN PRN Reason: Consult order Pharmacy Consult (Consult Rx Vancomycin Dosing) 1 each MISCELLANE DAILY PRN PRN Reason: Consult order Polyethylene Glycol (Polyethylene Glycol 3350 17 Gm Powd.Pack) 17 gm PO DAILY [facility] Last Admin: 04/27/22 09:15 Dose: Not Given Documented By: RAO Non-Admin Reason: NPO Sodium Chloride (0.9 % Sodium Chloride Flush 3 Ml Syringe) 3 ml IVFLUSH QSHIFT [facility] Last Admin: 04/27/22 12:08 Dose: Not Given Documented By: RAO Non-Admin Reason: IV Running Labs CBC & Chem 7: 04/27/22 05:38 04/27/22 05:38 Labs: Laboratory Results - last 24 hr 04/26/22 04/26/22 04/26/22 19:15 19:15 19:15 MCV 102.3 H MCH 33.6 H MCHC 32.8 RDW 15.2 Plt Count 225 MPV 10.4 Immature Gran % (Auto) 0.6 H Neut % (Auto) 94.6 H Lymph % (Auto) 2.8 L [place] % (Auto) 1.5 L Eos % (Auto) 0.1 Baso % (Auto) 0.4 Lymph # (Auto) 0.5 L [place] # (Auto) 0.3 Eos # (Auto) 0.0 Baso # (Auto) 0.1 Abs Immat Gran (auto) 0.11 H Absolute Neuts (auto) 17.3 H Absolute Nucleated RBC 0.000 Nucleated RBC % (auto) 0.0 Smear Tech's Comments VERIFIED ESR Anion Gap 16 Estim Creat Clear Calc 73.9 Estimated GFR > 60 Random Glucose 89 Lactic Acid 1.5 Calcium 9.1 Magnesium 1.8 Total Bilirubin 0.7 AST 24 ALT 15 Alkaline Phosphatase 138 H Troponin I High Sens C-Reactive Protein 13.54 H B-Natriuretic Peptide Total Protein 6.8 Albumin 3.7 Urine Color Urine Appearance Urine pH Ur Specific [place] Urine Protein Urine Glucose (UA) Urine Ketones Urine Blood Urine Nitrite Ur Leukocyte Esterase COVID-19 ([facility]) COVID-19 Clin Com Influenza Type A (PCR) Influenza Type B (PCR) RSV RNA Qual (PCR) SARS-CoV-2 RNA (RT-PCR) 04/26/22 04/26/22 04/26/22 19:15 19:27 21:20 MCV MCH MCHC RDW Plt Count MPV Immature Gran % (Auto) Neut % (Auto) Lymph % (Auto) [place] % (Auto) Eos % (Auto) Baso % (Auto) Lymph # (Auto) [place] # (Auto) Eos # (Auto) Baso # (Auto) Abs Immat Gran (auto) Absolute Neuts (auto) Absolute Nucleated RBC Nucleated RBC % (auto) Smear Tech's Comments ESR Anion Gap Estim Creat Clear Calc Estimated GFR Random Glucose Lactic Acid Calcium Magnesium Total Bilirubin AST ALT Alkaline Phosphatase Troponin I High Sens 8.5 D C-Reactive Protein B-Natriuretic Peptide Total Protein Albumin Urine Color Urine Appearance Urine pH Ur Specific [place] Urine Protein Urine Glucose (UA) Urine Ketones Urine Blood Urine Nitrite Ur Leukocyte Esterase COVID-19 ([facility]) Negative COVID-19 Clin Com See Note Influenza Type A (PCR) NEGATIVE Influenza Type B (PCR) NEGATIVE RSV RNA Qual (PCR) NEGATIVE SARS-CoV-2 RNA (RT-PCR) NEGATIVE 04/26/22 04/26/22 04/26/22 21:31 21:31 22:09 MCV MCH MCHC RDW Plt Count MPV Immature Gran % (Auto) Neut % (Auto) Lymph % (Auto) [place] % (Auto) Eos % (Auto) Baso % (Auto) Lymph # (Auto) [place] # (Auto) Eos # (Auto) Baso # (Auto) Abs Immat Gran (auto) Absolute Neuts (auto) Absolute Nucleated RBC Nucleated RBC % (auto) Smear Tech's Comments ESR 34 H Anion Gap Estim Creat Clear Calc Estimated GFR Random Glucose Lactic Acid Calcium Magnesium Total Bilirubin AST ALT Alkaline Phosphatase Troponin I High Sens 16.9 D C-Reactive Protein B-Natriuretic Peptide 64 Total Protein Albumin Urine Color Urine Appearance Urine pH Ur Specific [place] Urine Protein Urine Glucose (UA) Urine Ketones Urine Blood Urine Nitrite Ur Leukocyte Esterase COVID-19 ([facility]) COVID-19 Clin Com Influenza Type A (PCR) Influenza Type B (PCR) RSV RNA Qual (PCR) SARS-CoV-2 RNA (RT-PCR) 04/26/22 04/27/22 04/27/22 22:55 05:38 05:38 MCV 102.1 H MCH 33.2 H MCHC 32.5 RDW 15.2 Plt Count 208 MPV 10.6 Immature Gran % (Auto) 0.8 H Neut % (Auto) 88.1 H Lymph % (Auto) 7.7 L [place] % (Auto) 3.0 Eos % (Auto) 0.1 Baso % (Auto) 0.3 Lymph # (Auto) 1.8 [place] # (Auto) 0.7 Eos # (Auto) 0.0 Baso # (Auto) 0.1 Abs Immat Gran (auto) 0.18 H Absolute Neuts (auto) 20.7 H Absolute Nucleated RBC 0.000 Nucleated RBC % (auto) 0.0 Smear Tech's Comments VERIFIED ESR Anion Gap 14 Estim Creat Clear Calc 72.8 Estimated GFR > 60 Random Glucose 89 Lactic Acid Calcium 8.4 D Magnesium Total Bilirubin AST ALT Alkaline Phosphatase Troponin I High Sens C-Reactive Protein B-Natriuretic Peptide Total Protein Albumin Urine Color Yellow Urine Appearance Clear Urine pH 6.0 Ur Specific [place] 1.015 Urine Protein Negative Urine Glucose (UA) Negative Urine Ketones Negative Urine Blood Negative Urine Nitrite Negative Ur Leukocyte Esterase Negative COVID-19 ([facility]) COVID-19 Clin Com Influenza Type A (PCR) Influenza Type B (PCR) RSV RNA Qual (PCR) SARS-CoV-2 RNA (RT-PCR) Assessment and Plan (1) Cough: Status: Acute (2) Sepsis: Status: Acute (3) Fever: Status: Acute (4) Shortness of breath: Status: Acute (5) Aspiration pneumonia: Status: Acute (6) Acute hypoxemic respiratory failure: Status: Acute (7) Toxic metabolic encephalopathy: Status: Acute Plan 61-year-old female a past medical history of Down syndrome, dementia,? dysphasia, seizures, history of chronic aspiration PNA, LEONIE on CPAP, full-time caregiver is her sister? as patient requires 24/7 care, nonverbal at baseline admitted for sepsis of unspecified cause and CHF exacerbation #Acute hypoxemic respiratory failure/Sepsis, toxic metabolic encephalopathy- po ssible sec to pneumonia ? Lactic acid normal.? No evidence of end-organ dysfunction or hypotension. tachycardia, tachypnea seems to be resolving, leukocytosis slightly trending up. No fevers. Chest CT reviewed with ICU: Seems like more likely pneumonia than CHF. UA negative, blood culture pending, of note patient has recent history of MSSA bacteremia treated with cefazolin.. UA negative, blood culture pendin, COVID, RSV, flu negative,nasal mrsa screen added. decubitus ulcer does not appear infected -patient did have single episode of diarrhea per her contract law specialist.? Low suspicion for C diff but C diff/GI panel needs to be sent swallow eval added-Need MBBS. patient was started on broad-spectrum antibiotics including vanco and cefepime, incentive spirometry, chest physiotherapy, nebs, patient also need Q shift short suctioning respiratory is aware. Ice evaluation also added for level of care. # CHF excerebation is less likely considering- patient looks more dry (no edema or jvd),bnp normal -continue supplemental O2 to maintain oximetry greater than 92% # acute cough:Negative for COVID-19 -continue levalbuterol nebulizations -CXR negative for pneumonia -guaifenesin p.r.n. # LEONIE -continue CPAP # hypothyroidism -continue levothyroxine # history of seizures -no recent seizure activity -continue home meds # dementia, unspecified type-baseline without behavioral disturbance -continue home meds #Stage I/II decubitus ulcer sacrum/bilateral buttock -present on arrival -reposition q.2h and barrier cream nutrition eval DVT prophylaxis-Lovenox inaptient need:Acute hypoxemic respiratory failure/Sepsis, toxic metabolic encephalopathy- possible sec to pneumonia - need IV antibiotics, oxygen support, nebs, suctioning, also need pulmonary evaluation. Discussed with ICU considering multiple active medical issues as above and level of nursing care- patient needs to be seen by ICU for level care evaluation. Above was discussed with patient sister at bedside in detail length, She understand and in agreement above plan. Quality Stroke Does the patient have a stroke diagnosis?: No VTE Prior VTE?: No VTE Risk Level:: Medical - moderate - high VTE Device Contraindication: Treatment Not Indicated VTE Drug Contraindication: N/A - Med Ordered
[2022-04-27] MEDS: Pantoprazole Sodium 40 MG/10 ML VIAL IVPUSH (17:10)
--- NOTE | 2022-04-27 19:06 | MHC.SL.IMP ---
Date of Plan of Treatment: 04/27/22 Onset of Symptoms/Illness: 04/27/22 Date Treatment Started: 04/27/22 Admitting Diagnosis: Metabolic encephalopathy, Sepsis Primary Speech & Language Diagnosis: R13.12 Oropharyngeal Phase Dysphagia Reason for Today's Visit: 11065 Modified Barium Swallow Study Comments: Pt is NPO pending MBSS Pre-evaluation Dietary Consistencies: NPO Pre-evaluation Liquid Consistency: NPO Pre-evaluation Medication Administration: NPO Medical History: Modified Barium Swallow Study Fluoroscopic Evaluation of Swallowing Function CPT Code 63102 Evaluation Year: 2021 Reason for Study: History of aspiration Referring Physician: Dr. Munoz Evaluating Clinician: Dayana Yu MA, [facility]ACHINE OPERATOR Study Number: 1 Patient Name: Ann Marie Gold Status: Inpatient, Stretcher Age: 61 Gender: Female MEDICAL HISTORY: Year of Onset or Diagnosis: 2021 Past Medical History: Medical History Aspiration into airway Aspiration pneumonia Dementia Down syndrome Down syndrome Dysphagia Dysphagia causing pulmonary aspiration with swallowing Epilepsy Hypoxemia MSSA bacteremia MSSA bacteremia LEONIE on CPAP Physical deconditioning Pneumonia Respiratory distress Seizure disorder Toxic metabolic encephalopathy Unspecified skin changes Current (pre-evaluation) Intake/Diet: Route: NPO PENDING MBSS Pre-Study Functional Oral Intake Scale (FOIS): 1- No oral intake Pain: None reported at time of study SUBJECTIVE: Pt is a 61 year old female brought to the ED yesterday for evaluation of generalized weakness, altered mental status, productive cough, fevers, and chills x 2 days. Pt was admitted for metabolic encephalopathy and sepsis of unspecified cause, possibly secondary to aspiration pneumonia. Pt was accompanied to this exam by her sister, who is her full-time caregiver. Pt is nonverbal and requires 24/7 care. Pt has history of dementia, Down syndrome, epilepsy, and LEONIE. Pt?s sister reported extensive history of dysphagia. Per sister?s report, pt had a feeding tube in the past, which was removed when she ?passed a swallow x-ray.? Pt?s sister reported pt had MBSS done three times in the past and that at home she was eating a pureed diet with thickened liquids given by syringe. Pt was seen by [facility] MACHINE OPERATOR during previous hospitalizations 10/11/21-10/15/21 and 02/28/22-03/04/22 and was discharged on recommendation for pureed diet with honey thick liquids. -04/26/22 Chest X-Ray: ?FINDINGS: The lungs are well expanded. Diffuse interstitial prominence with hazy opacities of both lungs and peribronchial cuffing. No pleural effusion or pneumothorax. The cardiomediastinal silhouette is within normal limits. Cervical hardware noted. XR/XR chest 1V IMPRESSION: Diffuse interstitial prominence with peribronchial cuffing and hazy opacities. Edema is favored with this appearance.? -04/26/[address]: ?FINDINGS: Marked motion artifact impedes interpretation. LUNGS AND PLEURA: Similar to the chest radiograph earlier today, interstitial edema is present with peribronchial thickening suggestive of interstitial edema. Some areas of alveolar airspace disease in the lung bases consistent with edema as well. The dense consolidation that was noted at the right lung base on the 02/25/2022 study has resolved. No focal consolidations with air bronchograms are seen on the current study. No pleural effusions are present MEDIASTINUM: Again noted is an aberrant right subclavian artery. Heart size upper limits of normal. CORONARY ARTERY CALCIFICATION: None visualized on this study. AXILLA: No lymphadenopathy. UPPER ABDOMEN: Unremarkable. OSSEOUS STRUCTURES: Mild degenerative changes present in the spine. Some Schmorl's nodes are present. CT/CT chest wo IV con IMPRESSION: 1. Interstitial edema with some alveolar airspace disease in the lung bases consistent with CHF. It is a bit unusual that there are no pleural effusions. 2. The dense consolidation seen at the right lung base on the 02/25/2022 study has resolved. 3. Incidental note made of an aberrant right subclavian artery and mild degenerative changes in the spine. Fleischner guidelines were followed.? Oral Motor Exam Oral-Facial Teeth Characteristics: Edentulous Tongue Size: Normal Food and Liquid Trials: Oral Impairment: Lip Closure: Did not test Oral Impairment: Tongue Control During Bolus Hold: Did not test Oral Impairment: Bolus Preparation/Mastication: 2=Disorganized chewing/mashing with solid pieces of bolus Oral Impairment: Bolus Transport/Lingual Motion: 3=Repetitive/disorganized tongue motion Oral Impairment: Oral Residue: 2=Residue collection on oral structures Oral Impairment:Initiation of Pharyngeal Swallow: 0=Bolus head at posterior angle of ramus (first hyoid excursion) Pharyngeal Impairment: Soft Palate Elevation: 0=No bolus between soft palate (SP)/pharyngeal wall (PW) Pharyngeal Impairment: Laryngeal Elevation: 1=Partial thyroid cartilage/arytenoids to epiglottic petiole movement Pharyngeal Impairment: Anterior Hyoid Excursion: 1=Partial anterior movement Pharyngeal Impairment: Epiglottic Movement: 0=Complete inversion Pharyngeal Impairment: Laryngeal Vestibular Closure:: 0=Complete: no air/contrast in laryngeal vestibule Pharyngeal Impairment: Pharyngeal Stripping Wave: 1=Present: diminished Pharyngeal Impairment: Pharyngeal Contraction: Did not test Pharyngeal Impairment: Pharyngoesophageal Segment Openin=Complete distension and complete duration: no obstruction of flow Pharyngeal Impairment: Tongue Base (TB) Retraction: 2=Narrow column of contrast/air between TB and posterior PW Pharyngeal Impairment: Pharyngeal Residue: 0=Complete pharyngeal clearance Pharyngeal Impairment: Esophageal Clearance Upright Position: Did not test Impressions and Recommendations Clinical Observations: OBJECTIVE: Time-out: performed at 3:25 Evaluation Start: 3:00; Stop: 3:15 Patient Positioning: Seated 70-90 degrees Viewing Planes: LATERAL ONLY Contrast: MBSImP? Standardized Protocol using commercially prepared, standardized Barium viscosities, including: Varibar? THIN LIQUID (40% w/v, <15 cps) , Varibar? NECTAR (40% w/v, <150-450 cps) , Varibar? THIN HONEY (40% w/v, <800-1800 cps) [id number] [facility] Results: Lip closure for intraoral bolus containment could not be assessed due to logistical reasons not related to physiologic impairment. Tongue control during bolus hold could not be assessed due to logistical reasons not related to physiologic impairment. Bolus preparation and mastication demonstrated disorganized chewing/mashing. Bolus transport/lingual motion was with repetitive/disorganized motion of the tongue. Oral residue was a collection on oral structures. Initiation of the pharyngeal swallow occurred as the bolus head reached the posterior angle of the mandibular ramus. Soft palate elevation resulted in no bolus between the soft palate and the pharyngeal wall. Laryngeal elevation was decreased, with partial superior movement of the thyroid cartilage/partial approximation of the arytenoids to the epiglottic petiole. Anterior hyoid excursion demonstrated partial anterior movement. Epiglottic movement resulted in complete inversion. Laryngeal vestibular closure was complete, as indicated by no air or contrast within the laryngeal vestibule at the height of the swallow. Pharyngeal stripping wave was present, but diminished. Pharyngeal contraction could not be determined due to logistical reasons not related to physiologic impairment. Pharyngoesophageal segment opening was completely distended for complete duration with no obstruction of bolus flow. Tongue base retraction allowed a narrow column of contrast or air between the retracted tongue base and the posterior pharyngeal wall. Pharyngeal residue was not present. There was complete pharyngeal clearance. Esophageal clearance in the upright position could not be assessed due to logistical reasons not related to physiologic impairment. Oral Impairment Score: 7 (absence of score, component 1component 2) Pharyngeal Impairment Score: 5 (absence of score, component 13) Esophageal Impairment Score: --- (absence of score, component 17) Laryngeal Penetration and Aspiration: Neither penetration nor aspiration was observed in today's study with Honey-thick, [place]-thick, Thin. ASSESSMENT: Clinician Assessment: This exam was conducted by a multidisciplinary team, which included a speech pathologist, radiologist, and care technician. Pt was seated upright in a chair for lateral view only. Pt?s sister was present for this exam and provided the pt with assistance maintaining upright position. Pt?s sister reported that at home, pt is always positioned upright for meals and is provided with assistance feeding and positioning. Pt was fed with 1:1 assistance during this exam. Pt consumed the following liquid and solid consistencies: honey thick liquid barium by spoon, nectar thick liquid barium by spoon, thin liquid barium by spoon, pureed solid (mixture applesauce with barium paste), ground solid (chicken salad with barium paste). Oral phase was slow and disorganized. At times, pt held the bolus in her mouth or demonstrated tongue rocking movements. Other times, lingual motion for the transport of bolus was brisk and timely. Mastication was mildly prolonged and disorganized, with mild oral residue which subsequently cleared with swallow. Pharyngeal swallow trigger was timely, initiated as bolus head reached the posterior angle of the ramus. There was no nasopharyngeal reflux. Incomplete laryngeal elevation with incomplete anterior hyoid excursion. Complete epiglottic inversion. Complete laryngeal vestibular closure. There was no evidence of aspiration or penetration with intake of liquids and solids during this exam. There was good clearing of the valleculae and pyriform sinuses, with no pharyngeal retention. No obstruction of flow through the pharyngoesophageal segment opening. Pt produced one episode of cough during the exam. However, this appeared unrelated to PO intake, as there was no contrast in the oral cavity or pharyngeal cavity at the time. Liquid Intake Recommendation: Thin Liquid Intake Strategies: Small Sips, No Straws, Liquids by Teaspoon Only Dietary Recommendations: Pureed (NDD1) Medication Administration: Crushed with Puree Please contact the pharmacy regarding appropriate crushable or liquid drug formulations that are available whenever modified delivery is recommended. Compensatory Strategies Recommended: Sitting Upright (90 deg) No Straw Liquids from Spoon Small Bites and Sips Rate of Ingestion Change Oral Check Avoid Specific Foods Supervision during eating and or drinking: Total Assistance (1:1) Recommended Treatments: Compens. Strategy Educat. Recommendation for Speech Therapy: Inpatient Speech Therapy, Speech Therapy through [facility] Text Comment: PLAN: Intake Recommendations: Route: PO Diet Grade: Puree Liquid Consistencies: Thin Post-Study Functional Oral Intake Scale (FOIS): 5- Total oral intake of multiple consistencies requiring special preparation Oral phase was characterized by disorganized lingual movements, disorganized chewing and mashing, and mild oral residue, which subsequently cleared. Pharyngeal swallow trigger was timely. Pharyngeal phase marked with incomplete laryngeal elevation but with complete laryngeal vestibular closure. No evidence of tracheal aspiration or penetration during this exam. Good pharyngeal clearance. Pt?s sister reported that pt has dentures at home. Recommend start on PUREED (NDD1) diet while pt is in the hospital without her dentures with THIN liquids BY TEASPOON ONLY, pills CRUSHED in PUREE. Pt?s sister stated pt takes small pills with applesauce. Once pt has her dentures with her, upgrade to GROUND/MECH ALTERED (NDD2) consistency with sauces/gravies. Pt MUST be awake and alert when presented with food or liquid. Do not attempt to feed pt if she is lethargic or not engaged in meal. Pt requires TOTAL 1:1 ASSISTANCE for PO intake. Following feeding strategies are CRUCIAL for pt?s safety: -Dentures must be placed when pt is eating ground textures -Moisten food and mix well with sauces and gravies -Avoid sticky textures and mixed consistencies (i.e. soup, cereal) -Check oral cavity and ensure it is clear before giving pt next bite -If pt does not have dentures in, puree food -Liquids by teaspoon only -One sip at a time -No straws -Pt to be positioned upright at 90 degrees during PO intake and for at least 30 minutes afterwards -Ensure daily oral care routine (before first meal and after each subsequent meal) Recommend continue speech therapy for the treatment of dysphagia during hospitalization and at next level of care ([facility]). Therapy Recommendations: Therapy will be continued Manager Managing Goals: ? The patient will tolerate the least restrictive diet with a safe/efficient swallow to maintain adequate nutrition and hydration. ? The patient and/or family will participate in further education for swallowing goals. Clinician - Supplemental, Miscellaneous Communication: It is important to note MBSS objective studies are snapshots in time and Patient function might vary with factors such as time of day or concomitant medical conditions. For this reason, the final treatment plan for this patient should rest with their medical care team. Additional recommendations should be considered with the totality of the Patient in mind. Thank for the opportunity to participate in the care of this patient. If you have any questions about the content of this report, please contact the [facility] at [facility]. Education: Education regarding findings from today's study and plans for therapy were provided to Family/caregiver only through Verbal Instruction. Understanding was expressed by the Family/caregiver only. Supervisor [employer] Clinician/Clinical Fellow: No Supervisory Statement: N/A Speech Language Pathologist: Dayana Yu M.A., [facility]ACHINE OPERATOR
[2022-04-27] MEDS: Donepezil HCl 5 MG TABLET PO (21:43)
[2022-04-27] MEDS: lamoTRIgine 25 MG TABLET PO (21:43)
[2022-04-27] MEDS: Enoxaparin Sodium 40 MG/0.4 ML SYRINGE SUBCUT (21:44)
[2022-04-28] VITALS (7 sets, daily range): BP systolic 94–122; BP diastolic 50–77; PULSE 64–92; RESP 14–19; TEMP 36.1–37.3; O2SAT 91–99
[2022-04-28 02:34] LABS: CDiff Gene PCR NEGATIVE (Negative)
[2022-04-28] MEDS: cefEPime HCl 2 GM in 0.9 % Sodium Chloride 50 ML IV ×3 (05:00→21:37)
[2022-04-28] MEDS: levETIRAcetam 500 MG/5 ML VIAL 50 MG IVPUSH (05:01)
[2022-04-28] MEDS: Pantoprazole Sodium 40 MG/10 ML VIAL IVPUSH (05:13)
[2022-04-28] MEDS: lamoTRIgine 25 MG TABLET PO ×2 (08:38→21:36)
[2022-04-28] MEDS: levETIRAcetam 500 MG/5 ML VIAL 200 MG IVPUSH (08:38)
[2022-04-28] MEDS: polyethylene glycoL 3350 17 GM POWD.PACK PO (08:46)
[2022-04-28 08:56] LABS: MANUAL DIFF FLAG NO
[2022-04-28 08:57] LABS: Basophils Percent Auto 0.5 % (0-2); Eosinophils Absolute Auto 0.1 X10*3/uL (0.0-0.4); Eosinophils Percent Auto 0.7 % (0-4); Hematocrit 34.5 % (37.0-47.0); Imm Gran Abs Auto 0.03 X10*3/uL (0.00-0.03); Imm Gran Pct Auto 0.4 % (0.0-0.4); Lymphocytes Absolute Auto 1.4 X10*3/uL (1.2-4.9); Lymphocytes Percent Auto 17.4 % (20-40); Mean Corpuscular HGB Conc 31.9 g/dl (31.0-35.0); Mean Corpuscular Hemoglobin 32.8 pg (27.0-33.0); Mean Platelet Volume 10.4 fL (9.4-12.3); Monocytes Absolute Auto 0.4 X10*3/uL (0.1-1.2); Monocytes Percent Auto 4.5 % (2-11); Neutrophils Absolute Auto 6.3 x10*3/uL (2.0-8.3); Neutrophils Percent Auto 76.5 % (45-73); Platelet Count 185 X10*3/uL (160-400); Red Blood Count 3.35 X10*6/uL (4.20-5.50); Red Cell Distribution Width 14.9 % (11.0-16.0); White Blood Count 8.2 X10*3/uL (4.8-10.8)
[2022-04-28 09:24] LABS: Anion Gap 13 (12-20); Blood Urea Nitrogen 10 mg/dL (9-16); Calcium 8.3 mg/dL (8.4-10.2); Carbon Dioxide 23 mmol/L (22-29); Chloride 112 mmol/L (96-108); Creatinine Clr Calc Pharmacy 77.6; Estimated Glomerular Filt Rate > 60; Glucose Random 89 mg/dL (60-115); Potassium 3.5 mmol/L (3.3-5.1); Sodium 144 mmol/L (135-145)
[2022-04-28 09:25] LABS: Anion Gap 12 (12-20); Blood Urea Nitrogen 10 mg/dL (9-16); Calcium 8.2 mg/dL (8.4-10.2); Carbon Dioxide 23 mmol/L (22-29); Chloride 113 mmol/L (96-108); Creatinine Clr Calc Pharmacy 75.1; Estimated Glomerular Filt Rate > 60; Glucose Random 90 mg/dL (60-115); Potassium 3.5 mmol/L (3.3-5.1); Sodium 144 mmol/L (135-145)
[2022-04-28 09:28] LABS: Vancomycin Trough 15.6 mcg/mL (10.0-20.0)
--- NOTE | 2022-04-28 09:43 | HE.PHANOTE ---
Vancomycin Dosing Addendum Vancomycin Trough 15.6. Continue with current regimen of 750 mg q12h for predicted auc of 459. Next level 04/29/22 @0900
[2022-04-28] MEDS: vancomycin HCL 750 MG in 0.9 % Sodium Chloride 250 ML 265 MG IV (10:18)
[2022-04-28] MEDS: 0.9 % Sodium Chloride Flush 3 ML SYRINGE IVFLUSH (10:19)
[2022-04-28] MEDS: Levothyroxine Sodium 88 MCG TABLET PO (10:42)
--- NOTE | 2022-04-28 11:18 | P.CONPL_ITS ---
History of Present Illness History of Present Illness Consult date: 04/28/22 Chief complaint: Pneumonia, sepsis Narrative: This is an inpatient pulmonary consultation. The patient is a 61-year-old female a past medical history of Down syndrome, dementia,? dysphasia, seizures, history of chronic aspiration PNA, LEONIE on CPAP, HFpEF, full-time caregiver is her sister? as patient requires 24/7 care, nonverbal at baseline presented to ED this morning via EMS with her sister with generalized weakness, confusion from baseline, productive cough, fevers, chills for the past 2 days.? Her sister states that at baseline she is nonverbal with the exception of 3-4 words occasionally but has had increased weakness over the past few days with fever of 102. Her sister states that she has recurrent respiratory infections treated outpatient by Dr. Whitlock inpulmonology, typically with doxycycline and levalbuterol nebs.? She states she did give her a dose of doxycycline around 14:00 and then reports patient had an episode of diarrhea but this was the 1st occurrence in recent history.? She was recently admitted to ICU step-down to Medicine for acute hypoxemic respiratory failure with hypotension requiring vasopressors though no intubation and visit was complicated by aspiration pneumonia and MSSA bacteremia. On arrival, patient febrile to 103.1, tachycardic to 116, tachypneic to 22 and noted to be hypoxic by EMS started on 2 L via nasal cannula currently satting at 98%.? No hypotension.? WBC 18.3.? Lactic acid 1.5.? Renal function and electrolyte levels normal.? Troponin negative.? BNP pending.? ESR and CRP pending.? UA pending.? CXR showed diffuse interstitial prominence with peribr onchial cuffing and hazy opacities favoring edema.? Subsequent chest CT showing interstitial edema with some alveolar airspace disease in the lung bases. Patient to be admitted for sepsis of unclear etiology at this time. Given 2L IVF in ED as well as 1g IV ceftriaxone and 650mg acetaminophen. Review of Systems Review of Systems: Yes Unobtainable due to mental condition [facility] Past Medical History Medical History (Updated 04/28/22 @ 11:25 by Laci Gu MD) Aspiration into airway Aspiration pneumonia Aspiration pneumonia Dementia Diastolic heart failure Down syndrome Down syndrome Dysphagia Dysphagia causing pulmonary aspiration with swallowing Epilepsy Hypoxemia MSSA bacteremia MSSA bacteremia LEONIE on CPAP Physical deconditioning Pneumonia Pneumonia Respiratory distress Seizure disorder Toxic metabolic encephalopathy Unspecified skin changes Family History Family history: reviewed and not pertinent Social History Social History Household Members: Family Household Members Other:: sister Housing: House Do you presently have visiting nurse or other home services: Yes Patient Tobacco Use Status: Never used Tobacco Smoked in Last 30 Days: No Use of substances other than those prescribed or required for medical reasons: No Currently Displaying Signs/Symptoms of Drug Intoxication Withdrawal: No Any prior treatment program specific to substance use: No Have you been hit, kicked, punched, or otherwise hurt by someone within the past year? If so, by whom?: No Do you feel safe in your current relationship?: No Current Relationship Is there a partner from a previous relationship who is making you feel unsafe now?: No Are you made to feel afraid or neglected: No Advance Directives: No Advance Directives Information Provided: Yes Advance Directives on File: Yes Do you have thoughts of harming others: None Do you have a plan to hurt others: No Plan Recently lost weight without trying: No How much weight loss: Not applicable Eating poorly because of decreased appetite: No Nutrition screen score: 0 Nutrition Risks: No Nutritional Risk Patient : No : No Poor oral hygiene: No service: No Current occupational status: disabled Meds Allergies Allergy/AdvReac Type Severity Reaction Status Date / Time fentanyl [FENTANYL] Allergy Intermediate UNKNOWN Verified 03/30/22 15:35 codeine [CODEINE] Allergy Unknown UNKNOWN Verified 03/30/22 15:35 lorazepam [From ATIVAN] Allergy Unknown UNKNOWN Verified 03/30/22 15:35 oxcarbazepine [OXCARBAZEPINE] Allergy Unknown UNKNOWN Verified 03/30/22 15:35 penicillin V Allergy Unknown Unknown Verified 03/30/22 15:35 Penicillins [PENICILLINS] Allergy Unknown DIFFICULTY Verified 03/30/22 15:35 BREATHING Sulfa (Sulfonamide Allergy Unknown DIFFICULTY Verified 03/30/22 15:35 Antibiotics) BREATHING [SULFA (SULFONAMIDE ANTIBIOTICS)] levofloxacin [From LEVAQUIN] AdvReac Intermediate hallucinati Verified 03/30/22 15:35 ons Active Medications: Current Medications Acetaminophen (Acetaminophen Supp 650 Mg Supp.Rect) 650 mg ND Q4H PRN PRN Reason: Fever Donepezil HCl (Donepezil Hcl 5 Mg Tablet) 5 mg PO DAILY@2200 [facility] Last Admin: 04/27/22 21:43 Dose: 5 mg Enoxaparin Sodium (Enoxaparin Sodium 40 Mg/0.4 Ml Syringe) 40 mg SUBCUT Q24H [facility] Last Admin: 04/27/22 21:44 Dose: 40 mg Guaifenesin (Guaifenesin 200 Mg/10 Ml 10 Ml Liquid) 10 ml PO Q6H PRN PRN Reason: Cough Cefepime HCl 2 gm/ Sodium (Chloride) 50 mls @ 100 mls/hr IV Q8H [facility] Last Infusion: 04/28/22 05:55 Dose: Infused Vancomycin HCl 750 mg/ Sodium (Chloride) 265 mls @ 265 mls/hr IV Q12H [facility] Last Admin: 04/28/22 10:18 Dose: 265 mls/hr Lamotrigine (Lamotrigine 25 Mg Tablet) 25 mg PO BID [facility] Last Admin: 04/28/22 08:38 Dose: 25 mg Levalbuterol HCl (Levalbuterol Hcl 1.25 Mg/0.5 Ml Vial.Neb) 1.25 mg INHALE Q2H PRN PRN Reason: Shortness of Breath/Wheezing Last Admin: 04/27/22 21:54 Dose: 1.25 mg Levetiracetam (Levetiracetam Oral Soln 500 Mg/5 Ml) 1,350 mg PO BEDTIME [facility] Levetiracetam (Levetiracetam Oral Soln 500 Mg/5 Ml) 200 mg PO DAILY@0900 [facility] Levetiracetam (Levetiracetam Oral Soln 500 Mg/5 Ml) 50 mg PO DAILY@0400 [facility] Levetiracetam (Levetiracetam Oral Soln 500 Mg/5 Ml) 50 mg PO DAILY PRN PRN Reason: Seizure Activity Levothyroxine Sodium (Levothyroxine Sodium 88 Mcg Tablet) 88 mcg PO DAILY@1030 [facility] Last Admin: 04/28/22 10:42 Dose: 88 mcg Patient Own ( Lacosamide [Vimpat] 10 Mg/Ml Solution) 100 mg PO BEDTIME@2030 [facility] Last Admin: 04/27/22 22:02 Dose: 100 mg Pt Own (Midazolam [ Nayzilam] 5 Mg/[place] (0.1 Ml) [place],Non- Aerosol) 5 mg NOSTRIL-B DAILY PRN PRN Reason: Seizure Activity Nystatin (Nystatin Cream 15 Gm Tube) 1 appl TOPICAL TID [facility]; Protocol Last Admin: 04/28/22 10:42 Dose: Not Given Omeprazole (Omeprazole 20 Mg/10 Ml Susp.Recon) 2.5 mg PO DAILY [facility] Last Admin: 04/28/22 08:37 Dose: 2.5 mg Pantoprazole Sodium (Pantoprazole Sodium 40 Mg/10 Ml Vial) 40 mg IVPUSH DAILY@0630 [facility] Last Admin: 04/28/22 05:13 Dose: 40 mg Pharmacy Consult (Consult Rx Perform Med Rec) 1 each MISCELLANE ONCE PRN PRN Reason: Consult order Pharmacy Consult (Consult Rx Vancomycin Dosing) 1 each MISCELLANE DAILY PRN PRN Reason: Consult order Polyethylene Glycol (Polyethylene Glycol 3350 17 Gm Powd.Pack) 17 gm PO DAILY [facility] Last Admin: 04/28/22 08:46 Dose: 17 gm Sodium Chloride (0.9 % Sodium Chloride Flush 3 Ml Syringe) 3 ml IVFLUSH QSHIFT [facility] Last Admin: 04/28/22 10:19 Dose: 3 ml Home Medications Medication Instructions Recorded Confirmed Last Taken Type donepezil 5 mg disintegrating 5 mg PO DAILY@219910/21/20 04/26/22 04/25/22 History tablet ipratropium bromide 21 mcg (0.03 2 spray intranasal BEDTIME 10/21/20 04/26/22 04/25/22 History %) nasal spray levothyroxine 88 mcg tablet 88 mcg PO DAILY@102910/21/20 04/26/22 04/26/22 History lacosamide 10 mg/mL oral solution 100 mg PO BEDTIME@202910/09/21 04/26/22 04/25/22 History (Vimpat) levetiracetam 100 mg/mL oral 1,350 mg PO BEDTIME@202910/09/21 04/26/22 04/25/22 History solution (Keppra) levetiracetam 100 mg/mL oral 200 mg DAILY@0910/09/21 04/26/22 04/26/22 History solution (Keppra) omeprazole magnesium 2.5 mg oral 2.5 mg PO DAILY 10/09/21 04/26/22 04/26/22 History suspension,delayed release acetaminophen 325 mg tablet 650 mg PO BEDTIME 02/25/22 04/26/22 04/25/22 History (Tylenol) lamotrigine 25 mg chewable 25 mg PO BID 02/25/22 04/26/22 04/26/22 History dispersible tablet levetiracetam 100 mg/mL oral 50 mg PO DAILY PRN Seizure Activity 02/25/22 04/26/22 04/26/22 History solution levetiracetam 100 mg/mL oral 50 mg PO DAILY@0400 02/25/22 04/26/22 04/26/22 History solution midazolam 5 mg/spray (0.1 mL) 5 mg intranasal DAILY PRN Seizure 02/25/22 2 Unknown History nasal spray (Nayzilam) Activity nystatin 100,000 unit/gram topical 1 appl topical TID 02/25/22 04/26/22 04/26/22 History cream polyethylene glycol 3350 17 gram 17 g PO DAILY 02/25/22 04/26/22 04/26/22 History oral powder packet (Miralax) Lactobacillus acidophilus 0.5 mg 3 tab PO DAILY 04/26/22 04/26/22 04/26/22 History (100 million cell) tablet Physical Exam Vital Signs: Vital Signs: Last Vital Signs Temp 98.0 F 04/28/22 09:00 Pulse 91 04/28/22 09:00 Resp 15 04/28/22 09:00 BP 116/72 04/28/22 09:00 Pulse Ox 92 04/28/22 09:00 O2 Del Method 04/28/22 09:00 O2 Flow Rate 2 04/28/22 09:00 Oxygen Flow Rate 2 04/26/22 18:55 BMI result Body Mass Index 29.2 Appearance: awake ,seems generally weak cvs: rrr, q3x3quuse . res: diminshed breath sounds , more rhonchii right base>left side abd: no rebound or guarding ,nt, bs present. ext pulses present , no cyanosis , skin : stage 1/2 decubtii/sacrum neuro: awake ,intermittent sleepy Results Laboratory Findings CBC and BMP: 04/28/22 08:51 04/28/22 08:51 Abnormal lab findings: Abnormal Labs 04/26/22 04/26/22 04/26/22 19:15 19:15 22:09 WBC 18.3 H RBC 3.84 L Hgb Hct MCV 102.3 H MCH 33.6 H Immature Gran % (Auto) 0.6 H Neut % (Auto) 94.6 H Lymph % (Auto) 2.8 L [place] % (Auto) 1.5 L Lymph # (Auto) 0.5 L Abs Immat Gran (auto) 0.11 H Absolute Neuts (auto) 17.3 H ESR 34 H Chloride Calcium Alkaline Phosphatase 138 H C-Reactive Protein 13.54 H 04/27/22 04/27/22 04/28/22 05:38 05:38 08:51 WBC 23.4 H RBC 3.77 L 3.35 L Hgb 11.0 L Hct 34.5 L MCV 102.1 H 103.0 H MCH 33.2 H Immature Gran % (Auto) 0.8 H Neut % (Auto) 88.1 H 76.5 H Lymph % (Auto) 7.7 L 17.4 L [place] % (Auto) Lymph # (Auto) Abs Immat Gran (auto) 0.18 H Absolute Neuts (auto) 20.7 H ESR Chloride 109 H Calcium Alkaline Phosphatase C-Reactive Protein 04/28/22 04/28/22 08:51 08:51 WBC RBC Hgb Hct MCV MCH Immature Gran % (Auto) Neut % (Auto) Lymph % (Auto) [place] % (Auto) Lymph # (Auto) Abs Immat Gran (auto) Absolute Neuts (auto) ESR Chloride 113 H 112 H Calcium 8.2 L 8.3 L Alkaline Phosphatase C-Reactive Protein Microbiology: Microbiology 04/26/22 19:27 Blood - Venous Blood Culture - Preliminary No growth after 24 hours. 04/26/22 19:15 Blood - Venous Blood Culture - Preliminary No growth after [address] scan - chest: report reviewed Additional studies: Assessment and Plan (1) Sepsis: Status: Acute (2) Aspiration pneumonia: Status: Acute (3) Aspiration pneumonitis: Status: Acute Plan The patient is presenting with recurrent severe pneumonia. It is likely aspiration pneumonia with component of aspiration pneumonitis resulting in the alveolar filling process. The patient had a modified swallow that was not to a normal. Although, on her CT scan there is significant dilation of the proximal esophagus suggesting the possibility of a esophageal obstruction or stricture that may be resulting and the aspiration events. Recommendations: Antibiotics as per Infectious Disease Barium swallow Chlorhexidine mouthwash Head of bed elevated Procedures Date of Service Date of Service: 04/28/22
[2022-04-28 11:42] LABS: Adenovirus PCR Not Detected (Not Detect.); Bordetella parapertussis PCR Not Detected (Not Detect.); Bordetella pertussis PCR Not Detected (Not Detect.); Chlamydia pneumoniae PCR Not Detected (Not Detect.); Coronavirus 229E PCR Not Detected (Not Detect.); Coronavirus HKU1 PCR Not Detected (Not Detect.); Coronavirus NL63 PCR Not Detected (Not Detect.); Coronavirus OC43 PCR Not Detected (Not Detect.); Human metapneumovirus PCR Not Detected (Not Detect.); Influenza A PCR Not Detected (Not Detect.); Influenza B PCR Not Detected (Not Detect.); Mycoplasma pneumoniae PCR Not Detected (Not Detect.); Parainfluenza 1 PCR Not Detected (Not Detect.); Parainfluenza 2 PCR Not Detected (Not Detect.); Parainfluenza 3 PCR Not Detected (Not Detect.); Parainfluenza 4 PCR Not Detected (Not Detect.); RSV PCR Not Detected (Not Detect.); Rhino/Enterovirus PCR Not Detected (Not Detect.); SARS-CoV-2 PCR Not Detected (Not Detect.)
--- NOTE | 2022-04-28 11:46 | HO.PM.IMPN ---
Subjective Subjective Date of Service: 04/28/22 Interval History: Sepsis-possible sec to aspirational pneumonia , toxic metabolic encephalopathy Review of Systems patient is little more awake this morning, her sisters at bedside. no fevers ,unable to answer Physical Exam Vital Signs: Vital Signs: Last Vital Signs Temp 98.0 F 04/28/22 09:00 Pulse 91 04/28/22 09:00 Resp 15 04/28/22 09:00 BP 116/72 04/28/22 09:00 Pulse Ox 92 04/28/22 09:00 O2 Del Method 04/28/22 09:00 O2 Flow Rate 2 04/28/22 09:00 Oxygen Flow Rate 2 04/26/22 18:55 BMI result Body Mass Index 29.2 Appearing in no acute distress lung sounds are clear to auscultation heart regular rate rhythm, clear S1, S2 positive bowel sounds, abdomen is soft, nontender neuro patient is alert, some communication hx intellectual delay Objective Data Active Medications Acetaminophen (Acetaminophen Supp 650 Mg Supp.Rect) 650 mg LA Q4H PRN PRN Reason: Fever Chlorhexidine Gluconate (Chlorhexidine Gluc Oral Rinse 15 Ml Mouthwash) 15 ml BUCCAL BID [facility] Donepezil HCl (Donepezil Hcl 5 Mg Tablet) 5 mg PO DAILY@2200 [facility] Last Admin: 04/27/22 21:43 Dose: 5 mg Documented By: CONCHITA Enoxaparin Sodium (Enoxaparin Sodium 40 Mg/0.4 Ml Syringe) 40 mg SUBCUT Q24H [facility] Last Admin: 04/27/22 21:44 Dose: 40 mg Documented By: CONCHITA Guaifenesin (Guaifenesin 200 Mg/10 Ml 10 Ml Liquid) 10 ml PO Q6H PRN PRN Reason: Cough Cefepime HCl 2 gm/ Sodium (Chloride) 50 mls @ 100 mls/hr IV Q8H [facility] Last Infusion: 04/28/22 05:55 Dose: 100 mls/hr Documented By: CONCHITA Vancomycin HCl 750 mg/ Sodium (Chloride) 265 mls @ 265 mls/hr IV Q12H [facility] Last Admin: 04/28/22 10:18 Dose: 265 mls/hr Documented By: PATRICK Lamotrigine (Lamotrigine 25 Mg Tablet) 25 mg PO BID [facility] Last Admin: 04/28/22 08:38 Dose: 25 mg Documented By: PATRICK Levalbuterol HCl (Levalbuterol Hcl 1.25 Mg/0.5 Ml Vial.Neb) 1.25 mg INHALE Q2H PRN PRN Reason: Shortness of Breath/Wheezing Last Admin: 04/27/22 21:54 Dose: 1.25 mg Documented By: SAMANTHA Levetiracetam (Levetiracetam Oral Soln 500 Mg/5 Ml) 1,350 mg PO BEDTIME [facility] Levetiracetam (Levetiracetam Oral Soln 500 Mg/5 Ml) 200 mg PO DAILY@0900 [facility] Levetiracetam (Levetiracetam Oral Soln 500 Mg/5 Ml) 50 mg PO DAILY@0400 [facility] Levetiracetam (Levetiracetam Oral Soln 500 Mg/5 Ml) 50 mg PO DAILY PRN PRN Reason: Seizure Activity Levothyroxine Sodium (Levothyroxine Sodium 88 Mcg Tablet) 88 mcg PO DAILY@1030 [facility] Last Admin: 04/28/22 10:42 Dose: 88 mcg Documented By: PATRICK Patient Own ( Lacosamide [Vimpat] 10 Mg/Ml Solution) 100 mg PO BEDTIME@2030 [facility] Last Admin: 04/27/22 22:02 Dose: 100 mg Documented By: CONCHITA Pt Own (Midazolam [ Nayzilam] 5 Mg/[place] (0.1 Ml) [place],Non- Aerosol) 5 mg NOSTRIL-B DAILY PRN PRN Reason: Seizure Activity Nystatin (Nystatin Cream 15 Gm Tube) 1 appl TOPICAL TID [facility]; Protocol Last Admin: 04/28/22 10:42 Dose: Not Given Documented By: PATRICK Non-Admin Reason: no longer needed Omeprazole (Omeprazole 20 Mg/10 Ml Susp.Recon) 2.5 mg PO DAILY [facility] Last Admin: 04/28/22 08:37 Dose: 2.5 mg Documented By: PATRICK Pantoprazole Sodium (Pantoprazole Sodium 40 Mg/10 Ml Vial) 40 mg IVPUSH DAILY@0630 [facility] Last Admin: 04/28/22 05:13 Dose: 40 mg Documented By: CONCHITA Pharmacy Consult (Consult Rx Perform Med Rec) 1 each MISCELLANE ONCE PRN PRN Reason: Consult order Pharmacy Consult (Consult Rx Vancomycin Dosing) 1 each MISCELLANE DAILY PRN PRN Reason: Consult order Polyethylene Glycol (Polyethylene Glycol 3350 17 Gm Powd.Pack) 17 gm PO DAILY [facility] Last Admin: 04/28/22 08:46 Dose: 17 gm Documented By: PATRICK Sodium Chloride (0.9 % Sodium Chloride Flush 3 Ml Syringe) 3 ml IVFLUSH QSHIFT [facility] Last Admin: 04/28/22 10:19 Dose: 3 ml Documented By: PATRICK Labs CBC & Chem 7: 04/28/22 08:51 04/28/22 08:51 Labs: Laboratory Results - last 24 hr 04/27/22 04/27/22 04/28/22 17:16 23:50 08:51 MCV 103.0 H MCH 32.8 MCHC 31.9 RDW 14.9 Plt Count 185 MPV 10.4 Immature Gran % (Auto) 0.4 Neut % (Auto) 76.5 H Lymph % (Auto) 17.4 L [place] % (Auto) 4.5 Eos % (Auto) 0.7 Baso % (Auto) 0.5 Lymph # (Auto) 1.4 [place] # (Auto) 0.4 Eos # (Auto) 0.1 Baso # (Auto) 0.0 Abs Immat Gran (auto) 0.03 Absolute Neuts (auto) 6.3 Absolute Nucleated RBC 0.000 Nucleated RBC % (auto) 0.0 Anion Gap Estim Creat Clear Calc Estimated GFR Random Glucose Calcium Vancomycin Trough Respiratory Panel Ferrell See note Adenovirus (Rapid PCR) Not Detected B.pert (TEM-PCR) Not Detected B.parapertussis DNA PCR Not Detected C. pneumoniae DNA (PCR) Not Detected C. difficile Tox B Gene NEGATIVE Coronavirus OC43 (PCR) Not Detected Coronavirus HKU1 (PCR) Not Detected Coronavirus 229E (PCR) Not Detected Coronavirus NL63 (PCR) Not Detected Human Metapneumovir PCR Not Detected Influenza A (RT-PCR) Not Detected Influenza B (RT-PCR) Not Detected M. pneumoniae (PCR) Not Detected Parainfluenza 1 (PCR) Not Detected Parainfluenza 2 (PCR) Not Detected Parainfluenza 3 (PCR) Not Detected Parainfluenza 4 (PCR) Not Detected RSV (PCR) Not Detected Entero/Rhino (PCR) Not Detected SARS-CoV-2 RNA (RT-PCR) Not Detected 04/28/22 04/28/22 04/28/22 08:51 08:51 08:51 MCV MCH MCHC RDW Plt Count MPV Immature Gran % (Auto) Neut % (Auto) Lymph % (Auto) [place] % (Auto) Eos % (Auto) Baso % (Auto) Lymph # (Auto) [place] # (Auto) Eos # (Auto) Baso # (Auto) Abs Immat Gran (auto) Absolute Neuts (auto) Absolute Nucleated RBC Nucleated RBC % (auto) Anion Gap 12 13 Estim Creat Clear Calc 75.1 77.6 Estimated GFR > 60 > 60 Random Glucose 90 89 Calcium 8.2 L 8.3 L Vancomycin Trough 15.6 Respiratory Panel [place] Adenovirus (Rapid PCR) B.pert (TEM-PCR) B.parapertussis DNA PCR C. pneumoniae DNA (PCR) C. difficile Tox B Gene Coronavirus OC43 (PCR) Coronavirus HKU1 (PCR) Coronavirus 229E (PCR) Coronavirus NL63 (PCR) Human Metapneumovir PCR Influenza A (RT-PCR) Influenza B (RT-PCR) M. pneumoniae (PCR) Parainfluenza 1 (PCR) Parainfluenza 2 (PCR) Parainfluenza 3 (PCR) Parainfluenza 4 (PCR) RSV (PCR) Entero/Rhino (PCR) SARS-CoV-2 RNA (RT-PCR) Microbiology Microbiology Results: Microbiology 04/26/22 19:27 Blood Culture - Preliminary Blood - Venous No growth after 24 hours. 04/26/22 19:15 Blood Culture - Preliminary Blood - Venous No growth after 24 hours. Assessment and Plan (1) Cough: Status: Acute (2) Sepsis: Status: Acute (3) Fever: Status: Acute (4) Shortness of breath: Status: Acute (5) Aspiration pneumonia: Status: Acute (6) Acute hypoxemic respiratory failure: Status: Acute (7) Toxic metabolic encephalopathy: Status: Acute Plan 61-year-old female a past medical history of Down syndrome, dementia,? dysphasia, seizures, history of chronic aspiration PNA, LEONIE on CPAP, full-time caregiver is her sister? as patient requires 24/7 care, nonverbal at baseline admitted for sepsis of unspecified cause and CHF exacerbation Acute hypoxemic respiratory failure secondary to pneumonia UA negative, respiratory pathogen panel negative, nasal MRSA pending Albuterol nebs, guaifenesin as needed Supplemental oxygen, 92% on 2 L currently Sepsis secondary to community-acquired pneumonia Tachycardia, tachypnea, leukocytosis Continue treatment for pneumonia with cefepime and vanco, according to ID she needs a total of 3-5 days of IV antibiotics and then may continue p.o. therefore will continue IV antibiotics until 04/30/2022 Blood cultures negative after 24 hours Dysphagia MBS. recommend pureed diet with thin liquids LEONIE CPAP Hypothyroidism Continue levothyroxine History of seizures Seizure precautions Continue home medications Dementia, unspecified without behavioral disturbances Continue home medications Stage II decubitus ulcer to the sacrum present on arrival, frequent repositioning, barrier cream, nutrition evaluation DVT prophylaxis-Lovenox Attending Dr. Jiménez inpatient need:Acute hypoxemic respiratory failure/Sepsis, toxic metabolic encephalopathy- possible sec to pneumonia - need IV antibiotics, oxygen support, nebs, suctioning, also need pulmonary evaluation. Quality Stroke Does the patient have a stroke diagnosis?: No VTE Prior VTE?: No VTE Risk Level:: Medical - moderate - high VTE Device Contraindication: Treatment Not Indicated VTE Drug Contraindication: N/A - Med Ordered
[2022-04-28 12:43] LABS: MRSA Nasal PCR NEGATIVE (Negative); SA Nasal PCR POSITIVE (Negative)
[2022-04-28] MEDS: Donepezil HCl 5 MG TABLET PO (21:36)
[2022-04-28] MEDS: levETIRAcetam Oral Soln 500 MG/5 ML 1350 MG PO (21:36)
[2022-04-28] MEDS: Enoxaparin Sodium 40 MG/0.4 ML SYRINGE SUBCUT (21:36)
[2022-04-29] VITALS (8 sets, daily range): BP systolic 86–141; BP diastolic 42–64; PULSE 55–81; RESP 16–20; TEMP 36.2–37.1; O2SAT 92–100
[2022-04-29] MEDS: Acetaminophen 325 MG TABLET 650 MG PO (00:06)
[2022-04-29] MEDS: vancomycin HCL 750 MG in 0.9 % Sodium Chloride 250 ML 265 MG IV (00:06)
[2022-04-29] MEDS: Lactated Ringers 500 ML 999 ML IV ×3 (01:08→05:30)
[2022-04-29] MEDS: Midodrine HCl 5 MG TABLET PO (04:00)
[2022-04-29 04:04] LABS: MANUAL DIFF FLAG NO
[2022-04-29 04:08] LABS: Basophils Percent Auto 0.6 % (0-2); Eosinophils Absolute Auto 0.1 X10*3/uL (0.0-0.4); Eosinophils Percent Auto 1.3 % (0-4); Hematocrit 31.6 % (37.0-47.0); Imm Gran Abs Auto 0.02 X10*3/uL (0.00-0.03); Imm Gran Pct Auto 0.4 % (0.0-0.4); Lymphocytes Absolute Auto 1.7 X10*3/uL (1.2-4.9); Lymphocytes Percent Auto 31.7 % (20-40); Mean Corpuscular HGB Conc 31.6 g/dl (31.0-35.0); Mean Corpuscular Hemoglobin 32.9 pg (27.0-33.0); Mean Corpuscular Volume 103.9 fL (80.0-98.0); Mean Platelet Volume 10.3 fL (9.4-12.3); Monocytes Absolute Auto 0.3 X10*3/uL (0.1-1.2); Monocytes Percent Auto 5.8 % (2-11); Neutrophils Absolute Auto 3.2 x10*3/uL (2.0-8.3); Neutrophils Percent Auto 60.2 % (45-73); Platelet Count 167 X10*3/uL (160-400); Red Blood Count 3.04 X10*6/uL (4.20-5.50); Red Cell Distribution Width 14.8 % (11.0-16.0); White Blood Count 5.4 X10*3/uL (4.8-10.8)
[2022-04-29 04:15] LABS: Lactic Acid 0.7 mmol/L (0.5-2.0)
[2022-04-29 04:24] LABS: Anion Gap 13 (12-20); Blood Urea Nitrogen 11 mg/dL (9-16); Carbon Dioxide 23 mmol/L (22-29); Chloride 113 mmol/L (96-108); Potassium 3.2 mmol/L (3.3-5.1); Sodium 146 mmol/L (135-145)
[2022-04-29 04:25] LABS: Calcium 8.2 mg/dL (8.4-10.2); Creatinine Clr Calc Pharmacy 83.1; Estimated Glomerular Filt Rate > 60; Glucose Random 97 mg/dL (60-115)
--- NOTE | 2022-04-29 04:55 | PM.EVENT ---
Event Note Date of Service: 04/29/22 Event Note: pt hypotensive. with no other abnormal vitals, given 1.5 L of fluids. a lactic acid was obtained. BP remains soft. given 5 mg of midodrine
[2022-04-29] MEDS: levETIRAcetam Oral Soln 500 MG/5 ML 50 MG PO (05:29)
[2022-04-29] MEDS: Pantoprazole Sodium 40 MG/10 ML VIAL IVPUSH (05:29)
[2022-04-29] MEDS: cefEPime HCl 2 GM in 0.9 % Sodium Chloride 50 ML IV ×3 (05:29→20:38)
[2022-04-29 09:29] LABS: Vancomycin Trough 16.7 mcg/mL (10.0-20.0)
[2022-04-29] MEDS: levETIRAcetam Oral Soln 500 MG/5 ML 200 MG PO (09:37)
--- NOTE | 2022-04-29 11:12 | P.PNIM_ITS ---
Subjective Subjective Date of Service: 04/29/22 Interval History: seen and examined this morning follow up for pneumonia was hypotensive overnight, received IV fluid, midodrine. Morning BP is improved she is primarily nonverbal at baseline, unable to obtain ROS Physical Exam Vital Signs: Vital Signs: Last Vital Signs Temp 97.2 F 04/29/22 07:03 Pulse 77 04/29/22 07:03 Resp 18 04/29/22 07:03 BP 141/64 H 04/29/22 07:03 Pulse Ox 95 04/29/22 07:03 O2 Del Method 04/29/22 07:03 O2 Flow Rate 95 04/29/22 07:03 Oxygen Flow Rate 2 04/26/22 18:55 BMI result Body Mass Index 29.2 Const: Other: awake, sleepy mostly nonverbal at baseline Nutritional Appearance: average body habitus Resp: Other: b/l rhonchi Effort & Inspection: normal respiratory effort Cardio: Rate: regular rate Heart sounds: S1 normal heart sound present and S2 normal heart sound present GI: Inspection: No distended Palpation (GI): Soft to palpation Neuro: Other: unable to assess orientation Extrem: Other: moving all extremities General: Yes no pedal edema Objective Data Active Medications Acetaminophen (Acetaminophen Supp 650 Mg Supp.Rect) 650 mg SC Q4H PRN PRN Reason: Fever Acetaminophen (Acetaminophen 325 Mg Tablet) 650 mg PO Q6H PRN PRN Reason: Pain, Mild (Pain Scale 1-3) Last Admin: 04/29/22 00:06 Dose: 650 mg Documented By: MARICARMEN Chlorhexidine Gluconate (Chlorhexidine Gluc Oral Rinse 15 Ml Mouthwash) 15 ml BUCCAL BID [facility] Last Admin: 04/28/22 22:23 Dose: Not Given Documented By: MARICARMEN Non-Admin Reason: Patient Refused Donepezil HCl (Donepezil Hcl 5 Mg Tablet) 5 mg PO DAILY@2200 [facility] Last Admin: 04/28/22 21:36 Dose: 5 mg Documented By: MARICARMEN Enoxaparin Sodium (Enoxaparin Sodium 40 Mg/0.4 Ml Syringe) 40 mg SUBCUT Q24H [facility] Last Admin: 04/28/22 21:36 Dose: 40 mg Documented By: MARICARMEN Guaifenesin (Guaifenesin 200 Mg/10 Ml 10 Ml Liquid) 10 ml PO Q6H PRN PRN Reason: Cough Cefepime HCl 2 gm/ Sodium (Chloride) 50 mls @ 100 mls/hr IV Q8H [facility] Last Infusion: 04/29/22 06:25 Dose: 0 mls/hr Documented By: MARICARMEN Vancomycin HCl 750 mg/ Sodium (Chloride) 265 mls @ 265 mls/hr IV Q12H [facility] Last Infusion: 04/29/22 03:26 Dose: 0 mls/hr Documented By: MARICARMEN Lactic Acid (Ammonium Lactate 12 % Lotion 226 Gm Bottle) 1 appl TOPICAL BID PRN; Protocol PRN Reason: Dry Skin Lamotrigine (Lamotrigine 25 Mg Tablet) 25 mg PO BID [facility] Last Admin: 04/28/22 21:36 Dose: 25 mg Documented By: MARICARMEN Levalbuterol HCl (Levalbuterol Hcl 1.25 Mg/0.5 Ml Vial.Neb) 1.25 mg INHALE Q2H PRN PRN Reason: Shortness of Breath/Wheezing Last Admin: 04/28/22 15:40 Dose: 1.25 mg Documented By: CLEO Levetiracetam (Levetiracetam Oral Soln 500 Mg/5 Ml) 1,350 mg PO BEDTIME [facility] Last Admin: 04/28/22 21:36 Dose: 1,350 mg Documented By: MARICARMEN Levetiracetam (Levetiracetam Oral Soln 500 Mg/5 Ml) 200 mg PO DAILY@0900 [facility] Last Admin: 04/29/22 09:37 Dose: 200 mg Documented By: CHACHA Levetiracetam (Levetiracetam Oral Soln 500 Mg/5 Ml) 50 mg PO DAILY@0400 [facility] Last Admin: 04/29/22 05:29 Dose: 50 mg Documented By: MARICARMEN Levetiracetam (Levetiracetam Oral Soln 500 Mg/5 Ml) 50 mg PO DAILY PRN PRN Reason: Seizure Activity Levothyroxine Sodium (Levothyroxine Sodium 88 Mcg Tablet) 88 mcg PO DAILY@1030 [facility] Last Admin: 04/28/22 10:42 Dose: 88 mcg Documented By: PATRICK Patient Own ( Lacosamide [Vimpat] 10 Mg/Ml Solution) 100 mg PO BEDTIME@2030 [facility] Last Admin: 04/28/22 21:37 Dose: 100 mg Documented By: MARICARMEN Pt Own (Midazolam [ Nayzilam] 5 Mg/[place] (0.1 Ml) [place],Non- Aerosol) 5 mg NOSTRIL-B DAILY PRN PRN Reason: Seizure Activity Nystatin (Nystatin Cream 15 Gm Tube) 1 appl TOPICAL TID [facility]; Protocol Last Admin: 04/29/22 09:45 Dose: Not Given Documented By: CHACHA Non-Admin Reason: no longer needed Omeprazole (Omeprazole 20 Mg/10 Ml Susp.Recon) 2.5 mg PO DAILY [facility] Last Admin: 04/29/22 09:37 Dose: 2.5 mg Documented By: CHACHA Pantoprazole Sodium (Pantoprazole Sodium 40 Mg/10 Ml Vial) 40 mg IVPUSH DA CJ@0630 [facility] Last Admin: 04/29/22 05:29 Dose: 40 mg Documented By: MARICARMEN Pharmacy Consult (Consult Rx Perform Med Rec) 1 each MISCELLANE ONCE PRN PRN Reason: Consult order Pharmacy Consult (Consult Rx Vancomycin Dosing) 1 each MISCELLANE DAILY PRN PRN Reason: Consult order Polyethylene Glycol (Polyethylene Glycol 3350 17 Gm Powd.Pack) 17 gm PO DAILY [facility] Last Admin: 04/28/22 08:46 Dose: 17 gm Documented By: PATRICK Sodium Chloride (0.9 % Sodium Chloride Flush 3 Ml Syringe) 3 ml IVFLUSH QSHIFT [facility] Last Admin: 04/29/22 09:15 Dose: Not Given Documented By: CHACHA Non-Admin Reason: IV Running Labs CBC & Chem 7: 04/29/22 03:58 04/29/22 03:58 Labs: Laboratory Results - last 24 hr 04/27/22 04/27/22 04/27/22 17:16 17:16 23:50 MCV MCH MCHC RDW Plt Count MPV Immature Gran % (Auto) Neut % (Auto) Lymph % (Auto) Story % (Auto) Eos % (Auto) Baso % (Auto) Lymph # (Auto) Story # (Auto) Eos # (Auto) Baso # (Auto) Abs Immat Gran (auto) Absolute Neuts (auto) Absolute Nucleated RBC Nucleated RBC % (auto) Anion Gap Estim Creat Clear Calc Estimated GFR Random Glucose Lactic Acid Calcium Nasal Screen MRSA (PCR) NEGATIVE Nasal S. aureus Screen POSITIVE A Nasal MRSA/S.aureus Interp SEE NOTE Stl C. cayetanensis PCR Cancelled Stool Rotavirus A PCR Cancelled Stl Adenov F 40/41 PCR Cancelled Stool Astrovirus (PCR) Cancelled Stool Campylobacter PCR Cancelled Stool Cryptosporidium PCR Cancelled Stl Sh Tox Pr E STEC PCR Cancelled Stool E coli O157 PCR Cancelled Stl Enterotoxigenic E PCR Cancelled Stool EPEC (PCR) Cancelled Stool EAEC (PCR) Cancelled Stl E. histolytica PCR Cancelled Stool Giardia Lamblia PCR Cancelled Stl P. shigelloides PCR Cancelled Stool Salmonella PCR Cancelled Stool Sapovirus (PCR) Cancelled Stl Shigella/EIEC PCR Cancelled St Y.enterocolitica PCR Cancelled Stool Vibrio (PCR) Cancelled Stl Vibrio cholerae PCR Cancelled Stl Norovirus GI/GII PCR Cancelled Vancomycin Trough Respiratory Panel Ferrell See note Adenovirus (Rapid PCR) Not Detected B.pert (TEM-PCR) Not Detected B.parapertussis DNA PCR Not Detected C. pneumoniae DNA (PCR) Not Detected Coronavirus OC43 (PCR) Not Detected Coronavirus HKU1 (PCR) Not Detected Coronavirus 229E (PCR) Not Detected Coronavirus NL63 (PCR) Not Detected Human Metapneumovir PCR Not Detected Influenza A (RT-PCR) Not Detected Influenza B (RT-PCR) Not Detected M. pneumoniae (PCR) Not Detected Parainfluenza 1 (PCR) Not Detected Parainfluenza 2 (PCR) Not Detected Parainfluenza 3 (PCR) Not Detected Parainfluenza 4 (PCR) Not Detected RSV (PCR) Not Detected Entero/Rhino (PCR) Not Detected SARS-CoV-2 RNA (RT-PCR) Not Detected 04/29/22 04/29/22 04/29/22 03:58 03:58 03:58 MCV 103.9 H MCH 32.9 MCHC 31.6 RDW 14.8 Plt Count 167 MPV 10.3 Immature Gran % (Auto) 0.4 Neut % (Auto) 60.2 Lymph % (Auto) 31.7 Story % (Auto) 5.8 Eos % (Auto) 1.3 Baso % (Auto) 0.6 Lymph # (Auto) 1.7 [place] # (Auto) 0.3 Eos # (Auto) 0.1 Baso # (Auto) 0.0 Abs Immat Gran (auto) 0.02 Absolute Neuts (auto) 3.2 Absolute Nucleated RBC 0.000 Nucleated RBC % (auto) 0.0 Anion Gap 13 Estim Creat Clear Calc 83.1 Estimated GFR > 60 Random Glucose 97 Lactic Acid 0.7 Calcium 8.2 L Nasal Screen MRSA (PCR) Nasal S. aureus Screen Nasal MRSA/S.aureus Interp Stl C. cayetanensis PCR Stool Rotavirus A PCR Stl Adenov F 40/41 PCR Stool Astrovirus (PCR) Stool Campylobacter PCR Stool Cryptosporidium PCR Stl Sh Tox Pr E STEC PCR Stool E coli O157 PCR Stl Enterotoxigenic E PCR Stool EPEC (PCR) Stool EAEC (PCR) Stl E. histolytica PCR Stool Giardia Lamblia PCR Stl P. shigelloides PCR Stool Salmonella PCR Stool Sapovirus (PCR) Stl Shigella/EIEC PCR St Y.enterocolitica PCR Stool Vibrio (PCR) Stl Vibrio cholerae PCR Stl Norovirus GI/GII PCR Vancomycin Trough Respiratory Panel [place] Adenovirus (Rapid PCR) B.pert (TEM-PCR) B.parapertussis DNA PCR C. pneumoniae DNA (PCR) Coronavirus OC43 (PCR) Coronavirus HKU1 (PCR) Coronavirus 229E (PCR) Coronavirus NL63 (PCR) Human Metapneumovir PCR Influenza A (RT-PCR) Influenza B (RT-PCR) M. pneumoniae (PCR) Parainfluenza 1 (PCR) Parainfluenza 2 (PCR) Parainfluenza 3 (PCR) Parainfluenza 4 (PCR) RSV (PCR) Entero/Rhino (PCR) SARS-CoV-2 RNA (RT-PCR) 04/29/22 09:05 MCV MCH MCHC RDW Plt Count MPV Immature Gran % (Auto) Neut % (Auto) Lymph % (Auto) Story % (Auto) Eos % (Auto) Baso % (Auto) Lymph # (Auto) Story # (Auto) Eos # (Auto) Baso # (Auto) Abs Immat Gran (auto) Absolute Neuts (auto) Absolute Nucleated RBC Nucleated RBC % (auto) Anion Gap Estim Creat Clear Calc Estimated GFR Random Glucose Lactic Acid Calcium Nasal Screen MRSA (PCR) Nasal S. aureus Screen Nasal MRSA/S.aureus Interp Stl C. cayetanensis PCR Stool Rotavirus A PCR Stl Adenov F 40/41 PCR Stool Astrovirus (PCR) Stool Campylobacter PCR Stool Cryptosporidium PCR Stl Sh Tox Pr E STEC PCR Stool E coli O157 PCR Stl Enterotoxigenic E PCR Stool EPEC (PCR) Stool EAEC (PCR) Stl E. histolytica PCR Stool Giardia Lamblia PCR Stl P. shigelloides PCR Stool Salmonella PCR Stool Sapovirus (PCR) Stl Shigella/EIEC PCR St Y.enterocolitica PCR Stool Vibrio (PCR) Stl Vibrio cholerae PCR Stl Norovirus GI/GII PCR Vancomycin Trough 16.7 Respiratory Panel [place] Adenovirus (Rapid PCR) B.pert (TEM-PCR) B.parapertussis DNA PCR C. pneumoniae DNA (PCR) Coronavirus OC43 (PCR) Coronavirus HKU1 (PCR) Coronavirus 229E (PCR) Coronavirus NL63 (PCR) Human Metapneumovir PCR Influenza A (RT-PCR) Influenza B (RT-PCR) M. pneumoniae (PCR) Parainfluenza 1 (PCR) Parainfluenza 2 (PCR) Parainfluenza 3 (PCR) Parainfluenza 4 (PCR) RSV (PCR) Entero/Rhino (PCR) SARS-CoV-2 RNA (RT-PCR) Microbiology Microbiology Results: Microbiology 04/26/22 19:27 Blood Culture - Preliminary Blood - Venous No growth after 48 hours. 04/26/22 19:15 Blood Culture - Preliminary Blood - Venous No growth after 48 hours. Assessment and Plan (1) Aspiration pneumonitis: Status: Acute Plan 61-year-old female a past medical history of Down syndrome, dementia,? dysphasia, seizures, history of chronic aspiration PNA, LEONIE on CPAP, full-time caregiver is her sister? as patient requires 24/7 care, nonverbal at baseline admitted for sepsis of unspecified cause and CHF exacerbation Hypotension likely r/t dehydration from decreased po intake improved with fluid overnight. am bp improved Acute hypoxemic respiratory failure secondary to pneumonia UA negative, respiratory pathogen panel negative, nasal MRSA negative Albuterol nebs, guaifenesin as needed Supplemental oxygen, wean as tolerated seen by pulmonology Sepsis secondary to community-acquired pneumonia, possible aspiration Met criteria with Tachycardia, tachypnea, leukocytosis Continue IV cefepime according to ID she needs a total of 3-5 days of IV antibiotics and then can change to p.o. therefore will continue IV antibiotics until 04/30/2022. MRSA nasal negative - will d/c vanco Blood cultures negative to date sen by pum - chlorhexidine ordered Mild hypokalemia follow am BMP Dysphagia MBSS. recommend pureed diet with thin liquids Barium swallow xray rec by pulm - showing aspiration in the trachea and proximal right mainstem bronchus - will discuss with speech LEONIE CPAP Hypothyroidism Continue levothyroxine History of seizures Seizure precautions Continue home vimpat, keppra Dementia, unspecified without behavioral disturbances Continue home medications Stage II decubitus ulcer to the sacrum present on arrival, frequent repositioning, barrier cream, nutrition evaluation DVT prophylaxis-Lovenox Attending Dr. Jiménez inpatient need:Acute hypoxemic respiratory failure/Sepsis, toxic metabolic encephalopathy- - need IV antibiotics, oxygen support, nebs, suctioning Quality Stroke Does the patient have a stroke diagnosis?: No VTE Prior VTE?: No VTE Risk Level:: Medical - moderate - high VTE Device Contraindication: Treatment Not Indicated VTE Drug Contraindication: N/A - Med Ordered
[2022-04-29] MEDS: Levothyroxine Sodium 88 MCG TABLET PO (11:43)
[2022-04-29] MEDS: lamoTRIgine 25 MG TABLET PO ×2 (11:43→20:50)
[2022-04-29] MEDS: Chlorhexidine Gluc Oral Rinse 15 ML MOUTHWASH BUCCAL ×2 (11:44→20:49)
--- NOTE | 2022-04-29 11:49 | MHC.CLN ---
NUTRITION CONSULT FOR WOUND. PATIENT WITH STAGE II TO COCCYX AND BILATERAL BUTTOCKS. DIET=PUREE. INTAKE VARIABLE, 0-100%. WILL ADD ENSURE BID TO PROMOTE WOUND HEALING. PROVIDES ADDITIONAL 700 KCALS, 40 G PROTEIN. FOLLOW FOR INTAKE AND WOUND.
[2022-04-29] MEDS: Acetaminophen Supp 650 MG SUPP.RECT PR ×2 (11:54→21:19)
[2022-04-29] MEDS: guaiFENesin 200 MG/10 ML 10 ML LIQUID PO (12:10)
--- NOTE | 2022-04-29 14:02 | P.PNPL_ITS ---
Subjective Subjective Date of Service: 04/29/22 Interval history: The patient was seen on exam. Seems to be very sleepy this morning. She has had issues overnight with blood pressure and also did not sleep well. This morning she did have the barium swallow that initial demonstrated that her barium went directly into the esophagus but then on the 2nd video it demonstrated that the barium went into the trachea and subsequently to the right mainstem bronchus consistent with gross silent aspirations. I did talk to the team to keep her NPO. She has been evaluated by GI. The patient did have G- tube at some point in her life after she went to surgery. The the family was adamant that if she she needed to have the tube feed again that they would want her to have it placed again. Objective Data Labs CBC & Chem 7: 04/29/22 03:58 04/29/22 03:58 Labs: Laboratory Results - last 24 hr 04/29/22 04/29/22 04/29/22 03:58 03:58 03:58 WBC 5.4 RBC 3.04 L Hgb 10.0 L Hct 31.6 L MCV 103.9 H MCH 32.9 MCHC 31.6 RDW 14.8 Plt Count 167 MPV 10.3 Immature Gran % (Auto) 0.4 Neut % (Auto) 60.2 Lymph % (Auto) 31.7 [place] % (Auto) 5.8 Eos % (Auto) 1.3 Baso % (Auto) 0.6 Lymph # (Auto) 1.7 [place] # (Auto) 0.3 Eos # (Auto) 0.1 Baso # (Auto) 0.0 Abs Immat Gran (auto) 0.02 Absolute Neuts (auto) 3.2 Absolute Nucleated RBC 0.000 Nucleated RBC % (auto) 0.0 Sodium 146 H Potassium 3.2 L Chloride 113 H Carbon Dioxide 23 Anion Gap 13 BUN 11 Creatinine 0.56 Estim Creat Clear Calc 83.1 Estimated GFR > 60 Random Glucose 97 Lactic Acid 0.7 Calcium 8.2 L Vancomycin Trough 04/29/22 09:05 WBC RBC Hgb Hct MCV MCH MCHC RDW Plt Count MPV Immature Gran % (Auto) Neut % (Auto) Lymph % (Auto) [place] % (Auto) Eos % (Auto) Baso % (Auto) Lymph # (Auto) [place] # (Auto) Eos # (Auto) Baso # (Auto) Abs Immat Gran (auto) Absolute Neuts (auto) Absolute Nucleated RBC Nucleated RBC % (auto) Sodium Potassium Chloride Carbon Dioxide Anion Gap BUN Creatinine Estim Creat Clear Calc Estimated GFR Random Glucose Lactic Acid Calcium Vancomycin Trough 16.7 Microbiology Microbiology Results: Microbiology 04/26/22 19:27 Blood - Venous Blood Culture - Preliminary No growth after 48 hours. 04/26/22 19:15 Blood - Venous Blood Culture - Preliminary No growth after 48 hours. Review of Systems Review of Systems Yes Unobtainable due to mental condition and Unobtainable due to mental status Physical Exam Vital Signs: Vital Signs: Last Vital Signs Temp 97.6 F 04/29/22 11:42 Pulse 69 04/29/22 11:42 Resp 20 04/29/22 11:42 BP 110/52 L 04/29/22 11:42 Pulse Ox 99 04/29/22 11:42 O2 Del Method 04/29/22 11:42 O2 Flow Rate 2 04/29/22 11:42 Oxygen Flow Rate 2 04/26/22 18:55 BMI result Body Mass Index 29.2 Const: General: diaphoretic, ill appearing and tired appearing HEENT: Head: Yes atraumatic Neck: Neck: Yes trachea midline and Yes supple Chest: Chest palpation & inspection: normal inspection of the chest Resp: Auscultation: diminished lung sounds Cardio: Rate: regular rate Rhythm: regular rhythm Heart sounds: S1 normal heart sound present and S2 normal heart sound present Skin: Wounds: wounds noted Procedures Date of Service Date of Service: 04/29/22 Assessment and Plan Assessment and plan (1) Aspiration pneumonitis: Status: Acute (2) Aspiration pneumonia: Status: Acute (3) Down syndrome: Problem details: NEEDS FULL CARE 26/12 OLDER SISTER PROVIDES COMPUTER [employer] CARE , AN EXCELLENT WORK, AND I DID COMMEND THE SISTER FOR PROVIDING EXCELLENT CARE. Status: Acute (4) Acute hypoxemic respiratory failure: Status: Acute Plan Keep NPO recommend requesting GI referral to assess for esophageal obstructions and/or need to tube feeding Nebs continue abx coverage pt is in a frail condition Time Spent With Patient Time: Total time spent is greater than 50% in coordination of care (as documented) at patient's floor/unit and/or counseling patient: Progress Note: Quality Stroke Does the patient have a stroke diagnosis?: No
--- NOTE | 2022-04-29 15:01 | MHC.SLORD ---
Speech Language Pathology Order Status: PT NPO for Upper GI study this a.m., unable to see for po trials.
[2022-04-29] MEDS: Lactated Ringers 1,000 ML 100 ML IVCONT (16:30)
[2022-04-29] MEDS: levETIRAcetam Oral Soln 500 MG/5 ML 1350 MG PO (20:46)
[2022-04-29] MEDS: Enoxaparin Sodium 40 MG/0.4 ML SYRINGE SUBCUT (20:50)
[2022-04-29] MEDS: Donepezil HCl 5 MG TABLET PO (20:50)
[2022-04-29] MEDS: Ammonium Lactate 12 % Lotion 226 GM BOTTLE 1 APPL TOPICAL (21:30)
[2022-04-30] VITALS (8 sets, daily range): BP systolic 112–149; BP diastolic 56–80; PULSE 48–92; RESP 14–18; TEMP 36.1–36.9; O2SAT 85–99
[2022-04-30] MEDS: Lactated Ringers 1,000 ML 100 ML IVCONT ×2 (04:04→18:32)
[2022-04-30] MEDS: levETIRAcetam Oral Soln 500 MG/5 ML 50 MG PO (04:06)
[2022-04-30] MEDS: cefEPime HCl 2 GM in 0.9 % Sodium Chloride 50 ML IV ×3 (04:07→21:09)
[2022-04-30] MEDS: Pantoprazole Sodium 40 MG/10 ML VIAL IVPUSH (06:27)
[2022-04-30 06:43] LABS: MANUAL DIFF FLAG NO
[2022-04-30 06:47] LABS: Basophils Percent Auto 0.8 % (0-2); Eosinophils Absolute Auto 0.1 X10*3/uL (0.0-0.4); Eosinophils Percent Auto 3.6 % (0-4); Hematocrit 31.2 % (37.0-47.0); Hemoglobin 9.9 g/dl (12.0-16.0); Imm Gran Abs Auto 0.03 X10*3/uL (0.00-0.03); Imm Gran Pct Auto 0.8 % (0.0-0.4); Lymphocytes Absolute Auto 1.5 X10*3/uL (1.2-4.9); Lymphocytes Percent Auto 40.9 % (20-40); Mean Corpuscular HGB Conc 31.7 g/dl (31.0-35.0); Mean Corpuscular Hemoglobin 33.4 pg (27.0-33.0); Mean Corpuscular Volume 105.4 fL (80.0-98.0); Mean Platelet Volume 11.4 fL (9.4-12.3); Monocytes Absolute Auto 0.3 X10*3/uL (0.1-1.2); Monocytes Percent Auto 8.1 % (2-11); Neutrophils Absolute Auto 1.6 x10*3/uL (2.0-8.3); Neutrophils Percent Auto 45.8 % (45-73); Platelet Count 154 X10*3/uL (160-400); Red Blood Count 2.96 X10*6/uL (4.20-5.50); Red Cell Distribution Width 14.5 % (11.0-16.0); White Blood Count 3.6 X10*3/uL (4.8-10.8)
[2022-04-30 07:07] LABS: Anion Gap 11 (12-20); Blood Urea Nitrogen 7 mg/dL (9-16); Calcium 8.3 mg/dL (8.4-10.2); Carbon Dioxide 25 mmol/L (22-29); Chloride 111 mmol/L (96-108); Creatinine Clr Calc Pharmacy 84.7; Estimated Glomerular Filt Rate > 60; Glucose Random 83 mg/dL (60-115); Potassium 3.3 mmol/L (3.3-5.1); Sodium 144 mmol/L (135-145)
[2022-04-30] MEDS: levETIRAcetam Oral Soln 500 MG/5 ML 200 MG PO (09:58)
[2022-04-30] MEDS: lamoTRIgine 25 MG TABLET PO ×2 (10:00→21:12)
[2022-04-30] MEDS: Chlorhexidine Gluc Oral Rinse 15 ML MOUTHWASH BUCCAL ×2 (10:01→21:14)
[2022-04-30] MEDS: Levothyroxine Sodium 88 MCG TABLET PO (10:01)
[2022-04-30] MEDS: 0.9 % Sodium Chloride Flush 3 ML SYRINGE IVFLUSH ×2 (10:25→16:24)
--- NOTE | 2022-04-30 10:47 | P.PNIM_ITS ---
Subjective Subjective Date of Service: 04/30/22 Interval History: follow up for pneumonia was hypotensive overnight, received IV fluid, midodrine. Morning BP is improved she is primarily nonverbal at baseline, unable to obtain ROS Physical Exam Vital Signs: Vital Signs: Last Vital Signs Temp 97.3 F 04/30/22 07:31 Pulse 56 04/30/22 07:31 Resp 18 04/30/22 07:31 BP 149/70 H 04/30/22 07:31 Pulse Ox 99 04/30/22 07:31 O2 Del Method 04/30/22 07:31 O2 Flow Rate 2 04/30/22 07:31 Oxygen Flow Rate 2 04/26/22 18:55 BMI result Body Mass Index 29.2 Appearing in no acute distress lung sounds are clear to auscultation heart regular rate rhythm, clear S1, S2 positive bowel sounds, abdomen is soft, nontender neuro patient no focal deficits , intellectual delay Objective Data Active Medications Acetaminophen (Acetaminophen Supp 650 Mg Supp.Rect) 650 mg [place] Q4H PRN PRN Reason: Fever Last Admin: 04/29/22 21:19 Dose: 650 mg Documented By: BRIAN Acetaminophen (Acetaminophen 325 Mg Tablet) 650 mg PO Q6H PRN PRN Reason: Pain, Mild (Pain Scale 1-3) Last Admin: 04/29/22 00:06 Dose: 650 mg Documented By: MARICARMEN Chlorhexidine Gluconate (Chlorhexidine Gluc Oral Rinse 15 Ml Mouthwash) 15 ml BUCCAL BID [facility] Last Admin: 04/30/22 10:01 Dose: 15 ml Documented By: EDVIN Donepezil HCl (Donepezil Hcl 5 Mg Tablet) 5 mg PO DAILY@2200 [facility] Last Admin: 04/29/22 20:50 Dose: 5 mg Documented By: BRIAN Enoxaparin Sodium (Enoxaparin Sodium 40 Mg/0.4 Ml Syringe) 40 mg SUBCUT Q24H [facility] Last Admin: 04/29/22 20:50 Dose: 40 mg Documented By: BRIAN Guaifenesin (Guaifenesin 200 Mg/10 Ml 10 Ml Liquid) 10 ml PO Q6H PRN PRN Reason: Cough Last Admin: 04/29/22 12:10 Dose: 10 ml Documented By: CHACHA Cefepime HCl 2 gm/ Sodium (Chloride) 50 mls @ 100 mls/hr IV Q8H [facility] Last Infusion: 04/30/22 04:39 Dose: 0 mls/hr Documented By: LYNN Lactated Ringer's (Lr) 1,000 mls @ 100 mls/hr IVCONT .Q10H [facility] Last Admin: 04/30/22 10:25 Dose: Not Given Documented By: EDVIN Non-Admin Reason: IV Running Lactic Acid (Ammonium Lactate 12 % Lotion 226 Gm Bottle) 1 appl TOPICAL BID PRN; Protocol PRN Reason: Dry Skin Last Admin: 04/29/22 21:30 Dose: 1 appl Documented By: BRIAN Lamotrigine (Lamotrigine 25 Mg Tablet) 25 mg PO BID [facility] Last Admin: 04/30/22 10:00 Dose: 25 mg Documented By: EDVIN Levalbuterol HCl (Levalbuterol Hcl 1.25 Mg/0.5 Ml Vial.Neb) 1.25 mg INHALE Q2H PRN PRN Reason: Shortness of Breath/Wheezing Last Admin: 04/29/22 22:22 Dose: 1.25 mg Documented By: LOLY Levetiracetam (Levetiracetam Oral Soln 500 Mg/5 Ml) 1,350 mg PO BEDTIME [facility] Last Admin: 04/29/22 20:46 Dose: 1,350 mg Documented By: BRIAN Levetiracetam (Levetiracetam Oral Soln 500 Mg/5 Ml) 200 mg PO DAILY@0900 [facility] Last Admin: 04/30/22 09:58 Dose: 200 mg Documented By: EDVIN Levetiracetam (Levetiracetam Oral Soln 500 Mg/5 Ml) 50 mg PO DAILY@0400 [facility] Last Admin: 04/30/22 04:06 Dose: 50 mg Documented By: LYNN Levetiracetam (Levetiracetam Oral Soln 500 Mg/5 Ml) 50 mg PO DAILY PRN PRN Reason: Seizure Activity Levothyroxine Sodium (Levothyroxine Sodium 88 Mcg Tablet) 88 mcg PO DAILY@1030 [facility] Last Admin: 04/30/22 10:01 Dose: 88 mcg Documented By: EDVIN Patient Own ( Lacosamide [Vimpat] 10 Mg/Ml Solution) 100 mg PO BEDTIME@2030 [facility] Last Admin: 04/29/22 20:43 Dose: 100 mg Documented By: BRIAN Pt Own (Midazolam [ Nayzilam] 5 Mg/[place] (0.1 Ml) [place],Non- Aerosol) 5 mg NOSTRIL-B DAILY PRN PRN Reason: Seizure Activity Nystatin (Nystatin Cream 15 Gm Tube) 1 appl TOPICAL TID [facility]; Protocol Last Admin: 04/30/22 10:05 Dose: Not Given Documented By: EDVIN Non-Admin Reason: Patient Refused Omeprazole (Omeprazole 20 Mg/10 Ml Susp.Recon) 2.5 mg PO DAILY [facility] Last Admin: 04/30/22 10:01 Dose: 2.5 mg Documented By: EDVIN Pantoprazole Sodium (Pantoprazole Sodium 40 Mg/10 Ml Vial) 40 mg IVPUSH DAILY@0630 [facility] Last Admin: 04/30/22 06:27 Dose: 40 mg Documented By: LYNN Pharmacy Consult (Consult Rx Perform Med Rec) 1 each MISCELLANE ONCE PRN PRN Reason: Consult order Polyethylene Glycol (Polyethylene Glycol 3350 17 Gm Powd.Pack) 17 gm PO DAILY [facility] Last Admin: 04/30/22 10:24 Dose: Not Given Documented By: EDVIN Non-Admin Reason: Patient Refused Sodium Chloride (0.9 % Sodium Chloride Flush 3 Ml Syringe) 3 ml IVFLUSH QSHIFT [facility] Last Admin: 04/30/22 10:25 Dose: 3 ml Documented By: EDVIN Labs CBC & Chem 7: 04/30/22 06:16 04/30/22 06:16 Labs: Laboratory Results - last 24 hr 04/30/22 04/30/22 06:16 06:16 MCV 105.4 H MCH 33.4 H MCHC 31.7 RDW 14.5 Plt Count 154 L MPV 11.4 Immature Gran % (Auto) 0.8 H Neut % (Auto) 45.8 Lymph % (Auto) 40.9 H [place] % (Auto) 8.1 Eos % (Auto) 3.6 Baso % (Auto) 0.8 Lymph # (Auto) 1.5 [place] # (Auto) 0.3 Eos # (Auto) 0.1 Baso # (Auto) 0.0 Abs Immat Gran (auto) 0.03 Absolute Neuts (auto) 1.6 L Absolute Nucleated RBC 0.000 Nucleated RBC % (auto) 0.0 Anion Gap 11 L Estim Creat Clear Calc 84.7 Estimated GFR > 60 Random Glucose 83 Calcium 8.3 L Assessment and Plan (1) Aspiration pneumonitis: Status: Acute Plan 61-year-old female a past medical history of Down syndrome, dementia,? dysphasia, seizures, history of chronic aspiration PNA, LEONIE on CPAP, full-time caregiver is her sister? as patient requires 24/7 care, nonverbal at baseline admitted for sepsis of unspecified cause and CHF exacerbation Hypotension. Resolved likely r/t dehydration from decreased po intake improved with fluid overnight. Acute hypoxemic respiratory failure secondary to pneumonia UA negative, respiratory pathogen panel negative, nasal MRSA negative Albuterol nebs, guaifenesin as needed Supplemental oxygen, wean as tolerated seen by pulmonology Sepsis secondary to community-acquired pneumonia, possible aspiration Met criteria with Tachycardia, tachypnea, leukocytosis Continue IV cefepime according to ID she needs a total of 3-5 days of IV antibiotics and then can change to p.o. therefore will continue IV antibiotics until 04/30/2022. MRSA nasal negative - will d/c vanco Blood cultures negative to date seen by pum - chlorhexidine ordered Mild hypokalemia follow am BMP Dysphagia MBSS. recommend pureed diet with thin liquids Barium swallow xray rec by pulm - showing aspiration in the trachea and proximal right mainstem bronchus GI consult LEONIE CPAP Hypothyroidism Continue levothyroxine History of seizures Seizure precautions Continue home vimpat, keppra Dementia, unspecified without behavioral disturbances Continue home medications Stage II decubitus ulcer to the sacrum present on arrival, frequent repositioning, barrier cream, nutrition evaluation DVT prophylaxis-Lovenox Attending Dr. Jiménez inpatient need:Acute hypoxemic respiratory failure/Sepsis, toxic metabolic encephalopathy- - need IV antibiotics, oxygen support, nebs, suctioning Quality Stroke Does the patient have a stroke diagnosis?: No VTE Prior VTE?: No VTE Risk Level:: Medical - moderate - high VTE Device Contraindication: Treatment Not Indicated VTE Drug Contraindication: N/A - Med Ordered
[2022-04-30] MEDS: Acetaminophen Supp 650 MG SUPP.RECT PR (16:04)
[2022-04-30] MEDS: methylPREDNISolone Sod Succ 40 MG/ML VIAL IVPUSH (16:23)
[2022-04-30] MEDS: Donepezil HCl 5 MG TABLET PO (21:12)
[2022-04-30] MEDS: levETIRAcetam Oral Soln 500 MG/5 ML 1350 MG PO (21:14)
[2022-04-30] MEDS: Enoxaparin Sodium 40 MG/0.4 ML SYRINGE SUBCUT (21:18)
[2022-04-30] MEDS: Acetaminophen 325 MG TABLET 650 MG PO (21:33)
[2022-05-01] VITALS (8 sets, daily range): BP systolic 107–140; BP diastolic 53–65; PULSE 51–114; RESP 13–19; TEMP 36.4–36.6; O2SAT 92–98
[2022-05-01] MEDS: levETIRAcetam Oral Soln 500 MG/5 ML 50 MG PO (03:37)
[2022-05-01] MEDS: cefEPime HCl 2 GM in 0.9 % Sodium Chloride 50 ML IV ×3 (03:38→21:44)
[2022-05-01] MEDS: Lactated Ringers 1,000 ML 100 ML IVCONT (03:39)
[2022-05-01 03:52] LABS: Glucose, Whole Blood 131 mg/dL (60-115)
--- NOTE | 2022-05-01 03:59 | PC.NURSE ---
While giving medicine around 03:30, pt was unarousable. Attempted sternal rub with no change. Rapid response called around 0346. Bessie Mcnair (nursing supervisor pullet farm), respiratory therapy, Timur, RN, Zak, RN, BAKERY MACHINE MECHANIC SUPERVISOR and myself. Vitals signs taken HR 52 (SB). BP 107/57. O2 sat 98% on 3L NC. POC 131. Pt woke after several attempts of sternal rub, wet/cold facecloth rubbing on face, blankets off. Explained to patients sister/tube machine operator why I called a RR and what we did. Pt is wide awake and smiling. No distress noted. Sister at bedside. Will continue to monitor.
[2022-05-01 07:20] LABS: Estimated Glomerular Filt Rate > 60
[2022-05-01] MEDS: levETIRAcetam Oral Soln 500 MG/5 ML 200 MG PO (10:18)
[2022-05-01] MEDS: Chlorhexidine Gluc Oral Rinse 15 ML MOUTHWASH BUCCAL ×2 (10:19→21:44)
[2022-05-01] MEDS: Levothyroxine Sodium 88 MCG TABLET PO (10:24)
[2022-05-01] MEDS: lamoTRIgine 25 MG TABLET PO ×2 (10:25→21:44)
--- NOTE | 2022-05-01 12:40 | HO.PM.IMPN ---
Subjective Subjective Date of Service: 05/01/22 Interval History: follow up for pneumonia Sleeping on and off she is primarily nonverbal at baseline, unable to obtain ROS Physical Exam Vital Signs: Vital Signs: Last Vital Signs Temp 97.6 F 05/01/22 12:00 Pulse 51 05/01/22 12:00 Resp 13 05/01/22 12:00 BP 116/53 L 05/01/22 12:00 Pulse Ox 96 05/01/22 12:00 O2 Del Method 05/01/22 12:00 O2 Flow Rate 2 05/01/22 12:00 Oxygen Flow Rate 2 04/26/22 18:55 BMI result Body Mass Index 29.2 Appearing in no acute distress lung sounds are clear to auscultation heart regular rate rhythm, clear S1, S2 positive bowel sounds, abdomen is soft, nontender neuro patient is sleepy Objective Data Active Medications Acetaminophen (Acetaminophen Supp 650 Mg Supp.Rect) 650 mg [place] Q4H PRN PRN Reason: Fever Last Admin: 04/30/22 16:04 Dose: 650 mg Documented By: MITZI Acetaminophen (Acetaminophen 325 Mg Tablet) 650 mg PO Q6H PRN PRN Reason: Pain, Mild (Pain Scale 1-3) Last Admin: 04/30/22 21:33 Dose: 650 mg Documented By: ELKE Chlorhexidine Gluconate (Chlorhexidine Gluc Oral Rinse 15 Ml Mouthwash) 15 ml BUCCAL BID [facility] Last Admin: 05/01/22 10:19 Dose: 15 ml Documented By: EDVIN Donepezil HCl (Donepezil Hcl 5 Mg Tablet) 5 mg PO DAILY@2200 [facility] Last Admin: 04/30/22 21:12 Dose: 5 mg Documented By: ELKE Enoxaparin Sodium (Enoxaparin Sodium 40 Mg/0.4 Ml Syringe) 40 mg SUBCUT Q24H [facility] Last Admin: 04/30/22 21:18 Dose: 40 mg Documented By: ELKE Guaifenesin (Guaifenesin 200 Mg/10 Ml 10 Ml Liquid) 10 ml PO Q6H PRN PRN Reason: Cough Last Admin: 04/29/22 12:10 Dose: 10 ml Documented By: CHACHA Cefepime HCl 2 gm/ Sodium (Chloride) 50 mls @ 100 mls/hr IV Q8H [facility] Last Infusion: 05/01/22 12:24 Dose: 0 mls/hr Documented By: EDVIN Lactated Ringer's (Lr) 1,000 mls @ 100 mls/hr IVCONT .Q10H [facility] Last Admin: 05/01/22 03:39 Dose: 100 mls/hr Documented By: ELKE Lactic Acid (Ammonium Lactate 12 % Lotion 226 Gm Bottle) 1 appl TOPICAL BID PRN; Protocol PRN Reason: Dry Skin Last Admin: 04/29/22 21:30 Dose: 1 appl Documented By: BRIAN Lamotrigine (Lamotrigine 25 Mg Tablet) 25 mg PO BID [facility] Last Admin: 05/01/22 10:25 Dose: 25 mg Documented By: EDVIN Levalbuterol HCl (Levalbuterol Hcl 1.25 Mg/0.5 Ml Vial.Neb) 1.25 mg INHALE Q2H PRN PRN Reason: Shortness of Breath/Wheezing Last Admin: 04/30/22 22:33 Dose: 1.25 mg Documented By: LOLY Levetiracetam (Levetiracetam Oral Soln 500 Mg/5 Ml) 1,350 mg PO BEDTIME [facility] Last Admin: 04/30/22 21:14 Dose: 1,350 mg Documented By: ELKE Levetiracetam (Levetiracetam Oral Soln 500 Mg/5 Ml) 200 mg PO DAILY@0900 [facility] Last Admin: 05/01/22 10:18 Dose: 200 mg Documented By: EDVIN Levetiracetam (Levetiracetam Oral Soln 500 Mg/5 Ml) 50 mg PO DAILY@0400 [facility] Last Admin: 05/01/22 03:37 Dose: 50 mg Documented By: ELKE Levetiracetam (Levetiracetam Oral Soln 500 Mg/5 Ml) 50 mg PO DAILY PRN PRN Reason: Seizure Activity Levothyroxine Sodium (Levothyroxine Sodium 88 Mcg Tablet) 88 mcg PO DAILY@1030 [facility] Last Admin: 05/01/22 10:24 Dose: 88 mcg Documented By: EDVIN Methylprednisolone Sodium Succinate (Methylprednisolone Sod Succ 40 Mg/Ml Vial) 40 mg IVPUSH Q24H [facility] Last Admin: 04/30/22 16:23 Dose: 40 mg Documented By: EDVIN Patient Own ( Lacosamide [Vimpat] 10 Mg/Ml Solution) 100 mg PO BEDTIME@2030 [facility] Last Admin: 04/30/22 22:04 Dose: 100 mg Documented By: ELKE Pt Own (Midazolam [ Nayzilam] 5 Mg/[place] (0.1 Ml) [place],Non- Aerosol) 5 mg NOSTRIL-B DAILY PRN PRN Reason: Seizure Activity Nystatin (Nystatin Cream 15 Gm Tube) 1 appl TOPICAL TID [facility]; Protocol Last Admin: 05/01/22 10:25 Dose: Not Given Documented By: EDVIN Non-Admin Reason: pt'caregiver refused Omeprazole (Omeprazole 20 Mg/10 Ml Susp.Recon) 2.5 mg PO DAILY [facility] Last Admin: 05/01/22 11:48 Dose: 2.5 mg Documented By: EDVIN Pharmacy Consult (Consult Rx Perform Med Rec) 1 each MISCELLANE ONCE PRN PRN Reason: Consult order Polyethylene Glycol (Polyethylene Glycol 3350 17 Gm Powd.Pack) 17 gm PO DAILY [facility] Last Admin: 05/01/22 10:26 Dose: Not Given Documented By: EDVIN Non-Admin Reason: pt'caregiver refused Sodium Chloride (0.9 % Sodium Chloride Flush 3 Ml Syringe) 3 ml IVFLUSH QSHIFT [facility] Last Admin: 05/01/22 10:20 Dose: Not Given Documented By: EDVIN Non-Admin Reason: IV Running Labs CBC & Chem 7: 04/30/22 06:16 05/01/22 06:25 Labs: Laboratory Results - last 24 hr 05/01/22 05/01/22 03:48 06:25 Estim Creat Clear Calc 95.0 Estimated GFR > 60 POC Glucose 131 H Assessment and Plan (1) Aspiration pneumonitis: Status: Acute Plan 61-year-old female a past medical history of Down syndrome, dementia,? dysphasia, seizures, history of chronic aspiration PNA, LEONIE on CPAP, full-time caregiver is her sister? as patient requires 24/7 care, nonverbal at baseline admitted for sepsis of unspecified cause and CHF exacerbation Hypotension. Resolved likely r/t dehydration from decreased po intake improved with fluid overnight. Acute hypoxemic respiratory failure secondary to pneumonia UA negative, respiratory pathogen panel negative, nasal MRSA negative Albuterol nebs, guaifenesin as needed Supplemental oxygen, wean as tolerated seen by pulmonology Sepsis secondary to community-acquired pneumonia, possible aspiration Met criteria with Tachycardia, tachypnea, leukocytosis Continue IV cefepime according to ID she needs a total of 3-5 days of IV antibiotics and then can change to p.o. therefore will continue IV antibiotics until 04/30/2022. MRSA nasal negative - will d/c vanco Blood cultures negative to date seen by pum - chlorhexidine ordered Mild hypokalemia follow am BMP Dysphagia MBSS. recommend pureed diet with thin liquids Barium swallow xray rec by pulm - showing aspiration in the trachea and proximal right mainstem bronchus GI consult LEONIE CPAP Hypothyroidism Continue levothyroxine History of seizures Seizure precautions Continue home vimpat, keppra Dementia, unspecified without behavioral disturbances Continue home medications Stage II decubitus ulcer to the sacrum present on arrival, frequent repositioning, barrier cream, nutrition evaluation DVT prophylaxis-Lovenox Attending Dr. Jiménez inpatient need:Acute hypoxemic respiratory failure/Sepsis, toxic metabolic encephalopathy- - need IV antibiotics, oxygen support, nebs, suctioning Quality Stroke Does the patient have a stroke diagnosis?: No VTE Prior VTE?: No VTE Risk Level:: Medical - moderate - high VTE Device Contraindication: Treatment Not Indicated VTE Drug Contraindication: N/A - Med Ordered
[2022-05-01] MEDS: methylPREDNISolone Sod Succ 40 MG/ML VIAL IVPUSH (15:19)
[2022-05-01] MEDS: Acetaminophen Supp 650 MG SUPP.RECT PR (21:23)
[2022-05-01] MEDS: Enoxaparin Sodium 40 MG/0.4 ML SYRINGE SUBCUT (21:44)
[2022-05-01] MEDS: Donepezil HCl 5 MG TABLET PO (21:44)
[2022-05-01] MEDS: levETIRAcetam Oral Soln 500 MG/5 ML 1350 MG PO (21:45)
[2022-05-02] VITALS (8 sets, daily range): BP systolic 103–135; BP diastolic 52–82; PULSE 52–78; RESP 16–20; TEMP 36.4–37.2; O2SAT 96–100
[2022-05-02] MEDS: levETIRAcetam Oral Soln 500 MG/5 ML 50 MG PO (04:50)
[2022-05-02 07:39] LABS: Creatinine Clr Calc Pharmacy 89.5; Estimated Glomerular Filt Rate > 60
[2022-05-02] MEDS: levETIRAcetam Oral Soln 500 MG/5 ML 200 MG PO (09:38)
[2022-05-02] MEDS: Levothyroxine Sodium 88 MCG TABLET PO (09:39)
[2022-05-02] MEDS: lamoTRIgine 25 MG TABLET PO ×2 (09:39→21:47)
[2022-05-02] MEDS: Chlorhexidine Gluc Oral Rinse 15 ML MOUTHWASH BUCCAL ×2 (09:39→21:47)
[2022-05-02] MEDS: cefEPime HCl 2 GM in 0.9 % Sodium Chloride 50 ML IV ×2 (09:40→16:40)
[2022-05-02] MEDS: 0.9 % Sodium Chloride Flush 3 ML SYRINGE IVFLUSH ×2 (09:40→14:39)
[2022-05-02] MEDS: Acetaminophen 325 MG TABLET 650 MG PO (09:52)
--- NOTE | 2022-05-02 10:53 | HO.PM.IMPN ---
Subjective Subjective Date of Service: 05/02/22 Interval History: follow up for pneumonia Sleeping on and off she is primarily nonverbal at baseline, unable to obtain ROS Physical Exam Vital Signs: Vital Signs: Last Vital Signs Temp 97.8 F 05/02/22 07:22 Pulse 67 05/02/22 07:22 Resp 20 05/02/22 07:22 BP 125/82 05/02/22 07:22 Pulse Ox 100 05/02/22 07:22 O2 Del Method 05/02/22 07:22 O2 Flow Rate 2 05/02/22 07:22 Oxygen Flow Rate 2 04/26/22 18:55 BMI result Body Mass Index 29.2 Appearing in no acute distress lung sounds are clear to auscultation heart regular rate rhythm, clear S1, S2 positive bowel sounds, abdomen is soft, nontender neuro patient is alert x3, no focal deficits Objective Data Active Medications Acetaminophen (Acetaminophen Supp 650 Mg Supp.Rect) 650 mg [place] Q4H PRN PRN Reason: Fever Last Admin: 05/01/22 21:23 Dose: 650 mg Documented By: ANNEMARIE Acetaminophen (Acetaminophen 325 Mg Tablet) 650 mg PO Q6H PRN PRN Reason: Pain, Mild (Pain Scale 1-3) Last Admin: 05/02/22 09:52 Dose: 650 mg Documented By: RAO Chlorhexidine Gluconate (Chlorhexidine Gluc Oral Rinse 15 Ml Mouthwash) 15 ml BUCCAL BID [facility] Last Admin: 05/02/22 09:39 Dose: 15 ml Documented By: RAO Donepezil HCl (Donepezil Hcl 5 Mg Tablet) 5 mg PO DAILY@2200 [facility] Last Admin: 05/01/22 21:44 Dose: 5 mg Documented By: ANNEMARIE Enoxaparin Sodium (Enoxaparin Sodium 40 Mg/0.4 Ml Syringe) 40 mg SUBCUT Q24H [facility] Last Admin: 05/01/22 21:44 Dose: 40 mg Documented By: ANNEMARIE Guaifenesin (Guaifenesin 200 Mg/10 Ml 10 Ml Liquid) 10 ml PO Q6H PRN PRN Reason: Cough Last Admin: 04/29/22 12:10 Dose: 10 ml Documented By: CHACHA Cefepime HCl 2 gm/ Sodium (Chloride) 50 mls @ 100 mls/hr IV Q8H [facility] Last Infusion: 05/02/22 10:14 Dose: 0 mls/hr Documented By: RAO Lactic Acid (Ammonium Lactate 12 % Lotion 226 Gm Bottle) 1 appl TOPICAL BID PRN; Protocol PRN Reason: Dry Skin Last Admin: 04/29/22 21:30 Dose: 1 appl Documented By: BRIAN Lamotrigine (Lamotrigine 25 Mg Tablet) 25 mg PO BID [facility] Last Admin: 05/02/22 09:39 Dose: 25 mg Documented By: RAO Levalbuterol HCl (Levalbuterol Hcl 1.25 Mg/0.5 Ml Vial.Neb) 1.25 mg INHALE Q2H PRN PRN Reason: Shortness of Breath/Wheezing Last Admin: 05/02/22 05:02 Dose: 1.25 mg Documented By: SAMANTHA Levetiracetam (Levetiracetam Oral Soln 500 Mg/5 Ml) 1,350 mg PO BEDTIME [facility] Last Admin: 05/01/22 21:45 Dose: 1,350 mg Documented By: ANNEMARIE Levetiracetam (Levetiracetam Oral Soln 500 Mg/5 Ml) 200 mg PO DAILY@0900 [facility] Last Admin: 05/02/22 09:38 Dose: 200 mg Documented By: RAO Levetiracetam (Levetiracetam Oral Soln 500 Mg/5 Ml) 50 mg PO DAILY@0400 [facility] Last Admin: 05/02/22 04:50 Dose: 50 mg Documented By: ANNEMARIE Levetiracetam (Levetiracetam Oral Soln 500 Mg/5 Ml) 50 mg PO DAILY PRN PRN Reason: Seizure Activity Levothyroxine Sodium (Levothyroxine Sodium 88 Mcg Tablet) 88 mcg PO DAILY@1030 [facility] Last Admin: 05/02/22 09:39 Dose: 88 mcg Documented By: RAO Methylprednisolone Sodium Succinate (Methylprednisolone Sod Succ 40 Mg/Ml Vial) 40 mg IVPUSH Q24H [facility] Last Admin: 05/01/22 15:19 Dose: 40 mg Documented By: EDVIN Patient Own ( Lacosamide [Vimpat] 10 Mg/Ml Solution) 100 mg PO BEDTIME@2029 [facility] Last Admin: 05/01/22 22:29 Dose: 100 mg Documented By: ANNEMARIE Pt Own (Midazolam [ Nayzilam] 5 Mg/[place] (0.1 Ml) [place],Non- Aerosol) 5 mg NOSTRIL-B DAILY PRN PRN Reason: Seizure Activity Nystatin (Nystatin Cream 15 Gm Tube) 1 appl TOPICAL TID [facility]; Protocol Last Admin: 05/02/22 09:39 Dose: Not Given Documented By: RAO Non-Admin Reason: refused Omeprazole (Omeprazole 20 Mg/10 Ml Susp.Recon) 2.5 mg PO DAILY [facility] Last Admin: 05/02/22 09:38 Dose: 2.5 mg Documented By: RAO Pharmacy Consult (Consult Rx Perform Med Rec) 1 each MISCELLANE ONCE PRN PRN Reason: Consult order Polyethylene Glycol (Polyethylene Glycol 3350 17 Gm Powd.Pack) 17 gm PO DAILY [facility] Last Admin: 05/02/22 09:43 Dose: Not Given Documented By: RAO Non-Admin Reason: NPO Sodium Chloride (0.9 % Sodium Chloride Flush 3 Ml Syringe) 3 ml IVFLUSH QSHIFT [facility] Last Admin: 05/02/22 09:40 Dose: 3 ml Documented By: RAO Labs CBC & Chem 7: 04/30/22 06:16 05/02/22 07:09 Labs: Laboratory Results - last 24 hr 05/02/22 07:09 Estim Creat Clear Calc 89.5 Estimated GFR > 60 Microbiology Microbiology Results: Microbiology 04/26/22 19:27 Blood Culture - Final Blood - Venous No growth after 5 days. 04/26/22 19:15 Blood Culture - Final Blood - Venous No growth after 5 days. Assessment and Plan (1) Aspiration pneumonitis: Status: Acute Plan 61-year-old female a past medical history of Down syndrome, dementia,? dysphasia, seizures, history of chronic aspiration PNA, LEONIE on CPAP, full-time caregiver is her sister? as patient requires 24/7 care, nonverbal at baseline admitted for sepsis of unspecified cause and CHF exacerbation Hypotension. Resolved likely r/t dehydration from decreased po intake improved with fluid overnight. Acute hypoxemic respiratory failure secondary to pneumonia UA negative, respiratory pathogen panel negative, nasal MRSA negative Albuterol nebs, guaifenesin as needed Supplemental oxygen, wean as tolerated seen by pulmonology Sepsis secondary to community-acquired pneumonia, possible aspiration. Resolved Met criteria with Tachycardia, tachypnea, leukocytosis Continue IV cefepime according to ID she needs a total of 3-5 days of IV antibiotics and then can change to p.o. therefore will continue IV antibiotics until 04/30/2022. MRSA nasal negative - will d/c vanco Blood cultures negative to date seen by pum - chlorhexidine ordered Mild hypokalemia follow am BMP Dysphagia MBSS. recommend pureed diet with thin liquids Barium swallow xray rec by pulm - showing aspiration in the trachea and proximal right mainstem bronchus GI consult for possible EGD/GI series LEONIE CPAP Hypothyroidism Continue levothyroxine History of seizures Seizure precautions Continue home vimpat, keppra Dementia, unspecified without behavioral disturbances Continue home medications Stage II decubitus ulcer to the sacrum present on arrival, frequent repositioning, barrier cream, nutrition evaluation DVT prophylaxis-Lovenox Attending Dr. Rangel inpatient need:Acute hypoxemic respiratory failure/Sepsis, toxic metabolic encephalopathy- - need IV antibiotics, oxygen support, nebs, suctioning Quality Stroke Does the patient have a stroke diagnosis?: No VTE Prior VTE?: No VTE Risk Level:: Medical - moderate - high VTE Device Contraindication: Treatment Not Indicated VTE Drug Contraindication: N/A - Med Ordered
--- NOTE | 2022-05-02 12:09 | MHC.CLN ---
F/U PO INTAKE 0-50% DIET RX:PUREED-APPROPRIATE WILL RE-START ENSURE BID TO PROMOTE WOUND HEALING TO PROVIDE 700 KCALS, 40 G PROTEIN FOLLOW FOR INTAKE AND WOUND HEALING
--- NOTE | 2022-05-02 13:01 | MHC.CM.PN ---
Per ROUNDS discussion, Patient presents with s/s of Lethargy and may need an EGD. Patient is not yet medically cleared for dc; home/resume [facility] is the goal and CM will continue to follow.
[2022-05-02] MEDS: methylPREDNISolone Sod Succ 40 MG/ML VIAL IVPUSH (14:39)
--- NOTE | 2022-05-02 18:22 | PM.EVENT ---
Event Note Date of Service: 05/02/22 Event Note: GI consult dictated Reviewed bs s with Dr Daly, limited study but no esophageal lesion identified. Aspiration c/w oropharyngeal dyaphagia was seen Sister Denise is considering peg placement. Advised her that aspiration of oral and nasal secretions will still continue.
[2022-05-02 19:21] LABS: Strep Pneumo Ag urine Not Detected (Not Detected)
[2022-05-02] MEDS: Enoxaparin Sodium 40 MG/0.4 ML SYRINGE SUBCUT (21:47)
[2022-05-02] MEDS: levETIRAcetam Oral Soln 500 MG/5 ML 1350 MG PO (21:47)
[2022-05-02] MEDS: Donepezil HCl 5 MG TABLET PO (21:47)
[2022-05-02] MEDS: Acetaminophen Supp 650 MG SUPP.RECT PR (21:52)
[2022-05-03] VITALS (9 sets, daily range): BP systolic 112–146; BP diastolic 55–67; PULSE 50–94; RESP 12–19; TEMP 36.2–36.9; O2SAT 93–98
[2022-05-03] MEDS: cefEPime HCl 2 GM in 0.9 % Sodium Chloride 50 ML IV ×3 (02:19→16:18)
[2022-05-03] MEDS: 0.9 % Sodium Chloride Flush 3 ML SYRINGE IVFLUSH ×3 (02:20→16:18)
[2022-05-03] MEDS: levETIRAcetam Oral Soln 500 MG/5 ML 50 MG PO (04:10)
--- NOTE | 2022-05-03 05:03 | CONS_ITS ---
DATE OF SERVICE: 05/02/2022 REFERRING PHYSICIAN: Karis Gu NP REASON FOR CONSULTATION: Dysphagia and aspiration. HISTORY OF PRESENT ILLNESS: The patient is a 61-year-old woman with a history of Down syndrome and aspiration pneumonia as well as dysphagia, who was admitted to the hospital on April 26 with weakness and fever. As part of her evaluation, she was found to have sepsis and respiratory failure. She has been noted to have dysphagia, which has been a chronic problem. Her sister, who provides care for her, reports 4 hospitalizations over the past year for aspiration pneumonia. The patient was evaluated with imaging including a modified barium swallow as well as a regular barium swallow. These are reviewed and discussed with Dr. Daly who performed both. She reports that the barium swallow was a limited study but did not show any esophageal lesions. Aspiration into the trachea and proximal right mainstem bronchus was noted. PAST MEDICAL HISTORY: 1. Down syndrome with dementia and aspiration. 2. Dysphagia. 3. Diastolic heart failure. 4. MSSA bacteremia. 5. Seizure disorder. 6. LEONIE/CPAP. 7. Toxic metabolic encephalopathy. CURRENT MEDICATIONS: Her current medication list is reviewed in the chart. ALLERGIES: THERE ARE A LARGE NUMBER OF MEDICATION ALLERGIES, WHICH ARE REVIEWED. FAMILY HISTORY: This is reviewed in electronic medical record and is noncontributory. SOCIAL HISTORY: There is no reported substance abuse. Her sister is her primary care provider. REVIEW OF SYSTEMS: Not obtainable. PHYSICAL EXAMINATION: GENERAL: Shows an elderly appearing female with Down syndrome. Patient is sitting in bed. VITAL SIGNS: Reviewed in the electronic medical record and are stable. SKIN: Anicteric. HEENT: Shows no scleral icterus. NECK: Without lymphadenopathy or thyromegaly. LUNGS: Clear. HEART: Shows regular rate and rhythm. S1, S2. No murmur. ABDOMEN: Soft. There is a previous G-tube site in the left upper quadrant. Bowel sounds are present. No organomegaly is noted. EXTREMITIES: Without edema. LABORATORY DATA: Laboratory data and imaging studies are reviewed. IMPRESSION: Dysphagia with aspiration. Her dysphagia is likely oropharyngeal and not related to obstructive process in the esophagus based on her imaging studies. This is likely to worsen as her dementia progresses. This was discussed with the patient's sister. She is considering feeding tube placement. We discussed that this will allow for nutritional support, but will not decrease aspiration of nasal oral contents. She appears to understand this. We will await decision on further aggressive intervention. We discussed risks and benefits of feeding tube placement including anesthesia today. She understands these. Thanks for asking me to see her. I will follow her in the hospital with you. MD KEESHA Barron/DEJAN / [id number] MTDD
[2022-05-03 06:57] LABS: INTERNATIONAL NORM RATIO 1.3 (0.9-1.1); Prothrombin Time 15.3 SEC (10.0-13.1)
[2022-05-03] MEDS: Chlorhexidine Gluc Oral Rinse 15 ML MOUTHWASH BUCCAL ×2 (10:18→22:57)
--- NOTE | 2022-05-03 11:06 | MHC.SHP ---
Pre-Procedural Eval Section A Date of Service: 05/03/22 The patient is an INPATIENT: Yes Changes since office visit: No Cold of Flu in the past 2 weeks, No New Medical Problems, No Changes in Medication and No Patient answered all questions The History & Physical has been completed within 30 days and I have reviewed it.: Yes Section B Chief Complaint: Pneumonia, sepsis Allergies: Allergies Allergy/AdvReac Type Severity Reaction Status Date / Time fentanyl [FENTANYL] Allergy Intermediate UNKNOWN Verified 03/30/22 15:35 codeine [CODEINE] Allergy Unknown UNKNOWN Verified 03/30/22 15:35 lorazepam [From ATIVAN] Allergy Unknown UNKNOWN Verified 03/30/22 15:35 oxcarbazepine [OXCARBAZEPINE] Allergy Unknown UNKNOWN Verified 03/30/22 15:35 penicillin V Allergy Unknown Unknown Verified 03/30/22 15:35 Penicillins [PENICILLINS] Allergy Unknown DIFFICULTY Verified 03/30/22 15:35 BREATHING Sulfa (Sulfonamide Allergy Unknown DIFFICULTY Verified 03/30/22 15:35 Antibiotics) BREATHING [SULFA (SULFONAMIDE ANTIBIOTICS)] levofloxacin [From LEVAQUIN] AdvReac Intermediate hallucinati Verified 03/30/22 15:35 ons doxycycline AdvReac Mild Diarrhea Verified 04/30/22 08:07 Plan I have reviewed the history and physical and performed a pertinent physical examination on my patient. No changes have occurred unless specified.
--- NOTE | 2022-05-03 11:21 | MHC.CM.PN ---
Per ROUNDS discussion, Patient is getting a PEG today and may be ready to dc to home tomorrow. CM has made a referral to [facility] and Patient is already active with [facility]. RN CM made aware of this upcoming dc also. CM will follow.
--- NOTE | 2022-05-03 12:28 | HO.PM.IMPN ---
Subjective Subjective Date of Service: 05/03/22 Interval History: follow up for pneumonia Sleeping on and off she is primarily nonverbal at baseline, unable to obtain ROS Physical Exam Vital Signs: Vital Signs: Last Vital Signs Temp 98.0 F 05/03/22 12:00 Pulse 55 05/03/22 12:00 Resp 14 05/03/22 12:00 BP 134/60 05/03/22 12:00 Pulse Ox 95 05/03/22 12:00 O2 Del Method 05/03/22 12:00 O2 Flow Rate 3 05/03/22 12:00 Oxygen Flow Rate 2 04/26/22 18:55 BMI result Body Mass Index 29.2 Appearing in no acute distress lung sounds are clear to auscultation heart regular rate rhythm, clear S1, S2 positive bowel sounds, abdomen is soft, nontender neuro patient is alert x3, no focal deficits Objective Data Active Medications Acetaminophen (Acetaminophen Supp 650 Mg Supp.Rect) 650 mg NV Q4H PRN PRN Reason: Fever Last Admin: 05/02/22 21:52 Dose: 650 mg Documented By: ANNEMARIE Acetaminophen (Acetaminophen 325 Mg Tablet) 650 mg PO Q6H PRN PRN Reason: Pain, Mild (Pain Scale 1-3) Last Admin: 05/02/22 09:52 Dose: 650 mg Documented By: RAO Chlorhexidine Gluconate (Chlorhexidine Gluc Oral Rinse 15 Ml Mouthwash) 15 ml BUCCAL BID [facility] Last Admin: 05/03/22 10:18 Dose: 15 ml Documented By: YAJAIRA Donepezil HCl (Donepezil Hcl 5 Mg Tablet) 5 mg PO DAILY@2200 [facility] Last Admin: 05/02/22 21:47 Dose: 5 mg Documented By: ANNEMARIE Enoxaparin Sodium (Enoxaparin Sodium 40 Mg/0.4 Ml Syringe) 40 mg SUBCUT Q24H [facility] Last Admin: 05/02/22 21:47 Dose: 40 mg Documented By: ANNEMARIE Guaifenesin (Guaifenesin 200 Mg/10 Ml 10 Ml Liquid) 10 ml PO Q6H PRN PRN Reason: Cough Last Admin: 04/29/22 12:10 Dose: 10 ml Documented By: CHACHA Cefepime HCl 2 gm/ Sodium (Chloride) 50 mls @ 100 mls/hr IV Q8H [facility] Last Admin: 05/03/22 10:18 Dose: 100 mls/hr Documented By: YAJAIRA Lactic Acid (Ammonium Lactate 12 % Lotion 226 Gm Bottle) 1 appl TOPICAL BID PRN; Protocol PRN Reason: Dry Skin Last Admin: 04/29/22 21:30 Dose: 1 appl Documented By: BRIAN Lamotrigine (Lamotrigine 25 Mg Tablet) 25 mg PO BID [facility] Last Admin: 05/02/22 21:47 Dose: 25 mg Documented By: ANNEMARIE Levalbuterol HCl (Levalbuterol Hcl 1.25 Mg/0.5 Ml Vial.Neb) 1.25 mg INHALE Q2H PRN PRN Reason: Shortness of Breath/Wheezing Last Admin: 05/02/22 22:22 Dose: 1.25 mg Documented By: SAMANTHA Levetiracetam (Levetiracetam Oral Soln 500 Mg/5 Ml) 1,350 mg PO BEDTIME [facility] Last Admin: 05/02/22 21:47 Dose: 1,350 mg Documented By: ANNEMARIE Levetiracetam (Levetiracetam Oral Soln 500 Mg/5 Ml) 200 mg PO DAILY@0900 [facility] Last Admin: 05/02/22 09:38 Dose: 200 mg Documented By: RAO Levetiracetam (Levetiracetam Oral Soln 500 Mg/5 Ml) 50 mg PO DAILY@0400 [facility] Last Admin: 05/03/22 04:10 Dose: 50 mg Documented By: ANNEMARIE Levetiracetam (Levetiracetam Oral Soln 500 Mg/5 Ml) 50 mg PO DAILY PRN PRN Reason: Seizure Activity Levothyroxine Sodium (Levothyroxine Sodium 88 Mcg Tablet) 88 mcg PO DAILY@1030 [facility] Last Admin: 05/02/22 09:39 Dose: 88 mcg Documented By: RAO Patient Own ( Lacosamide [Vimpat] 10 Mg/Ml Solution) 100 mg PO BEDTIME@2030 [facility] Last Admin: 05/02/22 21:47 Dose: 100 mg Documented By: ANNEMARIE Pt Own (Midazolam [ Nayzilam] 5 Mg/Ralph (0.1 Ml) Ralph,Non- Aerosol) 5 mg NOSTRIL-B DAILY PRN PRN Reason: Seizure Activity Nystatin (Nystatin Cream 15 Gm Tube) 1 appl TOPICAL TID MARLON; Protocol Last Admin: 05/02/22 22:14 Dose: Not Given Documented By: ANNEMARIE Non-Admin Reason: Patient Refused Omeprazole (Omeprazole 20 Mg/10 Ml Susp.Recon) 2.5 mg PO DAILY [facility] Last Admin: 05/02/22 09:38 Dose: 2.5 mg Documented By: RAO Pharmacy Consult (Consult Rx Perform Med Rec) 1 each MISCELLANE ONCE PRN PRN Reason: Consult order Polyethylene Glycol (Polyethylene Glycol 3350 17 Gm Powd.Pack) 17 gm PO DAILY [facility] Last Admin: 05/03/22 10:19 Dose: Not Given Documented By: YAJAIRA Non-Admin Reason: NPO Sodium Chloride (0.9 % Sodium Chloride Flush 3 Ml Syringe) 3 ml IVFLUSH QSHIFT [facility] Last Admin: 05/03/22 10:18 Dose: 3 ml Documented By: YAJAIRA Labs CBC & Chem 7: 04/30/22 06:16 05/02/22 07:09 Labs: Laboratory Results - last 24 hr 04/26/22 05/03/22 23:30 06:16 PT 15.3 H INR 1.3 H Ur Strep pneumoniae Ag Not Detected Assessment and Plan (1) Aspiration pneumonitis: Status: Acute Plan 61-year-old female a past medical history of Down syndrome, dementia,? dysphasia, seizures, history of chronic aspiration PNA, LEONIE on CPAP, full-time caregiver is her sister? as patient requires 24/7 care, nonverbal at baseline admitted for sepsis of unspecified cause and CHF exacerbation Dysphagia MBSS. recommend pureed diet with thin liquids Barium swallow xray rec by pulm - showing aspiration in the trachea and proximal right mainstem bronchus Plan for PEG tube placement today Hypotension. Resolved likely r/t dehydration from decreased po intake improved with fluid overnight. Acute hypoxemic respiratory failure secondary to pneumonia UA negative, respiratory pathogen panel negative, nasal MRSA negative Albuterol nebs, guaifenesin as needed Supplemental oxygen, wean as tolerated seen by pulmonology Sepsis secondary to community-acquired pneumonia, possible aspiration. Resolved Met criteria with Tachycardia, tachypnea, leukocytosis Continue IV cefepime according to ID she needs a total of 3-5 days of IV antibiotics and then can change to p.o. therefore will continue IV antibiotics until 04/30/2022. MRSA nasal negative - will d/c vanco Blood cultures negative to date seen by pum - chlorhexidine ordered Mild hypokalemia follow am BMP LEONIE CPAP Hypothyroidism Continue levothyroxine History of seizures Seizure precautions Continue home vimpat, keppra Dementia, unspecified without behavioral disturbances Continue home medications Stage II decubitus ulcer to the sacrum present on arrival, frequent repositioning, barrier cream, nutrition evaluation DVT prophylaxis-Lovesark[facility] Attending Dr. Rangel DISPO Plan for dc home possibly tomorrow inpatient need:Acute hypoxemic respiratory failure/Sepsis, toxic metabolic encephalopathy- - need IV antibiotics, oxygen support, nebs, suctioning Quality Stroke Does the patient have a stroke diagnosis?: No VTE Prior VTE?: No VTE Risk Level:: Medical - moderate - high VTE Device Contraindication: Treatment Not Indicated VTE Drug Contraindication: N/A - Med Ordered
--- NOTE | 2022-05-03 12:30 | MHC.SLORD ---
Speech Language Pathology Order Status: Patient is NPO for PEG surgery today. 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
--- NOTE | 2022-05-03 13:50 | HO.ANESPROP2 ---
HPI - Anesthesia Eval Consult details Narrative: 61 F for PEG Down syndrome, dementia,? dysphasia, seizures, history of chronic aspiration pneumonia . Patient with acute hypoxemic respiratory failure secondary to pneumonia. Case discussed with Dr Sevilla and the patient's sister . The sister understands that patient is high risk for gin operative complications she accepts the risks and would like to proceed . PMF Active Problems Active Problems: All Active Problems (Updated 05/03/22 @ 13:38 by Mercedes Corbett RN) Fever (Acute) Shortness of breath (Acute) CHF exacerbation (Acute) Sepsis (Acute) Cough (Acute) Aspiration pneumonia (Acute) Acute hypoxemic respiratory failure (Acute) Toxic metabolic encephalopathy (Acute) Aspiration pneumonitis (Acute) Down syndrome (Acute) Aspiration pneumonia (Acute) MSSA bacteremia (Acute) Past Medical History Medical History (Updated 05/03/22 @ 13:38 by Mercedes Corbett RN) Aspiration into airway Aspiration pneumonia Dementia Diastolic heart failure Down syndrome Dysphagia Dysphagia causing pulmonary aspiration with swallowing Epilepsy G tube feedings Hypoxemia MSSA bacteremia LEONIE on CPAP Physical deconditioning Pneumonia Respiratory distress Seizure disorder Toxic metabolic encephalopathy Unspecified skin changes Family History Family history of problems with anesthesia: No Surgical History Surgical History (Updated 05/03/22 @ 13:38 by Mercedes Corbett RN) History of back surgery History of Problems with Anesthesia: Yes (delayed emergence ) Social History Social History Household Members: Family Household Members Other:: sister Housing: House Do you presently have visiting nurse or other home services: Yes Patient Tobacco Use Status: Never used Tobacco Smoked in Last 30 Days: No Use of substances other than those prescribed or required for medical reasons: No Currently Displaying Signs/Symptoms of Drug Intoxication Withdrawal: No Any prior treatment program specific to substance use: No Have you been hit, kicked, punched, or otherwise hurt by someone within the past year? If so, by whom?: No Do you feel safe in your current relationship?: No Current Relationship Is there a partner from a previous relationship who is making you feel unsafe now?: No Are you made to feel afraid or neglected: No Are you DNR?: No Advance Directives: No Advance Directives Information Provided: Yes Advance Directives on File: Yes Do you have thoughts of harming others: None Do you have a plan to hurt others: No Plan Recently lost weight without trying: No How much weight loss: Not applicable Eating poorly because of decreased appetite: No Nutrition screen score: 0 Nutrition Risks: No Nutritional Risk Patient : No : No Poor oral hygiene: No service: No Current occupational status: disabled Meds Allergies Allergy/AdvReac Type Severity Reaction Status Date / Time fentanyl [FENTANYL] Allergy Intermediate UNKNOWN Verified 03/30/22 15:35 codeine [CODEINE] Allergy Unknown UNKNOWN Verified 03/30/22 15:35 lorazepam [From ATIVAN] Allergy Unknown UNKNOWN Verified 03/30/22 15:35 oxcarbazepine [OXCARBAZEPINE] Allergy Unknown UNKNOWN Verified 03/30/22 15:35 penicillin V Allergy Unknown Unknown Verified 03/30/22 15:35 Penicillins [PENICILLINS] Allergy Unknown DIFFICULTY Verified 03/30/22 15:35 BREATHING Sulfa (Sulfonamide Allergy Unknown DIFFICULTY Verified 03/30/22 15:35 Antibiotics) BREATHING [SULFA (SULFONAMIDE ANTIBIOTICS)] levofloxacin [From LEVAQUIN] AdvReac Intermediate hallucinati Verified 03/30/22 15:35 ons doxycycline AdvReac Mild Diarrhea Verified 04/30/22 08:07 Active Medications: Current Medications Acetaminophen (Acetaminophen Supp 650 Mg Supp.Rect) 650 mg AK Q4H PRN PRN Reason: Fever Last Admin: 05/02/22 21:52 Dose: 650 mg Acetaminophen (Acetaminophen 325 Mg Tablet) 650 mg PO Q6H PRN PRN Reason: Pain, Mild (Pain Scale 1-3) Last Admin: 05/02/22 09:52 Dose: 650 mg Chlorhexidine Gluconate (Chlorhexidine Gluc Oral Rinse 15 Ml Mouthwash) 15 ml BUCCAL BID [facility] Last Admin: 05/03/22 10:18 Dose: 15 ml Donepezil HCl (Donepezil Hcl 5 Mg Tablet) 5 mg PO DAILY@2200 [facility] Last Admin: 05/02/22 21:47 Dose: 5 mg Enoxaparin Sodium (Enoxaparin Sodium 40 Mg/0.4 Ml Syringe) 40 mg SUBCUT Q24H [facility] Last Admin: 05/02/22 21:47 Dose: 40 mg Guaifenesin (Guaifenesin 200 Mg/10 Ml 10 Ml Liquid) 10 ml PO Q6H PRN PRN Reason: Cough Last Admin: 04/29/22 12:10 Dose: 10 ml Cefepime HCl 2 gm/ Sodium (Chloride) 50 mls @ 100 mls/hr IV Q8H [facility] Last Admin: 05/03/22 10:18 Dose: 100 mls/hr Lactic Acid (Ammonium Lactate 12 % Lotion 226 Gm Bottle) 1 appl TOPICAL BID PRN; Protocol PRN Reason: Dry Skin Last Admin: 04/29/22 21:30 Dose: 1 appl Lamotrigine (Lamotrigine 25 Mg Tablet) 25 mg PO BID [facility] Last Admin: 05/02/22 21:47 Dose: 25 mg Levalbuterol HCl (Levalbuterol Hcl 1.25 Mg/0.5 Ml Vial.Neb) 1.25 mg INHALE Q2H PRN PRN Reason: Shortness of Breath/Wheezing Last Admin: 05/02/22 22:22 Dose: 1.25 mg Levetiracetam (Levetiracetam Oral Soln 500 Mg/5 Ml) 1,350 mg PO BEDTIME [facility] Last Admin: 05/02/22 21:47 Dose: 1,350 mg Levetiracetam (Levetiracetam Oral Soln 500 Mg/5 Ml) 200 mg PO DAILY@0900 [facility] Last Admin: 05/02/22 09:38 Dose: 200 mg Levetiracetam (Levetiracetam Oral Soln 500 Mg/5 Ml) 50 mg PO DAILY@0400 [facility] Last Admin: 05/03/22 04:10 Dose: 50 mg Levetiracetam (Levetiracetam Oral Soln 500 Mg/5 Ml) 50 mg PO DAILY PRN PRN Reason: Seizure Activity Levothyroxine Sodium (Levothyroxine Sodium 88 Mcg Tablet) 88 mcg PO DAILY@1030 [facility] Last Admin: 05/02/22 09:39 Dose: 88 mcg Patient Own ( Lacosamide [Vimpat] 10 Mg/Ml Solution) 100 mg PO BEDTIME@2030 [facility] Last Admin: 05/02/22 21:47 Dose: 100 mg Pt Own (Midazolam [ Nayzilam] 5 Mg/Garwin (0.1 Ml) Garwin,Non- Aerosol) 5 mg NOSTRIL-B DAILY PRN PRN Reason: Seizure Activity Nystatin (Nystatin Cream 15 Gm Tube) 1 appl TOPICAL TID [facility]; Protocol Last Admin: 05/02/22 22:14 Dose: Not Given Omeprazole (Omeprazole 20 Mg/10 Ml Susp.Recon) 2.5 mg PO DAILY [facility] Last Admin: 05/02/22 09:38 Dose: 2.5 mg Pharmacy Consult (Consult Rx Perform Med Rec) 1 each MISCELLANE ONCE PRN PRN Reason: Consult order Polyethylene Glycol (Polyethylene Glycol 3350 17 Gm Powd.Pack) 17 gm PO DAILY [facility] Last Admin: 05/03/22 10:19 Dose: Not Given Sodium Chloride (0.9 % Sodium Chloride Flush 3 Ml Syringe) 3 ml IVFLUSH QSHIFT [facility] Last Admin: 05/03/22 10:18 Dose: 3 ml Home Medications Medication Instructions Recorded Confirmed Last Taken Type donepezil 5 mg disintegrating 5 mg PO DAILY@219910/21/20 04/26/22 04/25/22 History tablet ipratropium bromide 21 mcg (0.03 2 spray intranasal BEDTIME 10/21/20 04/26/22 04/25/22 History %) nasal spray levothyroxine 88 mcg tablet 88 mcg PO DAILY@102910/21/20 04/26/22 04/26/22 History lacosamide 10 mg/mL oral solution 100 mg PO BEDTIME@202910/09/21 04/26/22 04/25/22 History (Vimpat) levetiracetam 100 mg/mL oral 1,350 mg PO BEDTIME@202910/09/21 04/26/22 04/25/22 History solution (Keppra) levetiracetam 100 mg/mL oral 200 mg DAILY@89910/09/21 04/26/22 04/26/22 History solution (Keppra) omeprazole magnesium 2.5 mg oral 2.5 mg PO DAILY 10/09/21 04/26/22 04/26/22 History suspension,delayed release acetaminophen 325 mg tablet 650 mg PO BEDTIME 02/25/22 04/26/22 04/25/22 History (Tylenol) lamotrigine 25 mg chewable 25 mg PO BID 02/25/22 04/26/22 04/26/22 History dispersible tablet levetiracetam 100 mg/mL oral 50 mg PO DAILY PRN Seizure Activity 02/25/22 04/26/22 04/26/22 History solution levetiracetam 100 mg/mL oral 50 mg PO DAILY@0400 02/25/22 04/26/22 04/26/22 History solution midazolam 5 mg/spray (0.1 mL) 5 mg intranasal DAILY PRN Seizure 02/25/22 04/26/22 Unknown History nasal spray (Nayzilam) Activity nystatin 100,000 unit/gram topical 1 appl topical TID 02/25/22 04/26/22 04/26/22 History cream polyethylene glycol 3350 17 gram 17 g PO DAILY 02/25/22 04/26/22 04/26/22 History oral powder packet (Miralax) Lactobacillus acidophilus 0.5 mg 3 tab PO DAILY 04/26/22 04/26/22 04/26/22 History (100 million cell) tablet Exam Exam Date and Time: May 03, 2022 1350 Height,Weight and Vital Signs: Height 4 ft 10 in Weight 63.503 kg Last Vital Signs Temp 98.0 F 05/03/22 12:00 Pulse 55 05/03/22 12:00 Resp 14 05/03/22 12:00 BP 134/60 05/03/22 12:00 Pulse Ox 95 05/03/22 12:00 O2 Del Method 05/03/22 12:00 O2 Flow Rate 3 05/03/22 12:00 Oxygen Flow Rate 2 04/26/22 18:55 Pertinent Lab Results Pertinent Lab Results: Laboratory Tests 04/26/22 04/26/22 04/26/22 19:15 19:15 19:15 WBC 18.3 H RBC 3.84 L Hgb 12.9 Hct 39.3 MCV 102.3 H MCH 33.6 H MCHC 32.8 RDW 15.2 Plt Count 225 MPV 10.4 Immature Gran % (Auto) 0.6 H Neut % (Auto) 94.6 H Lymph % (Auto) 2.8 L [place] % (Auto) 1.5 L Eos % (Auto) 0.1 Baso % (Auto) 0.4 Lymph # (Auto) 0.5 L [place] # (Auto) 0.3 Eos # (Auto) 0.0 Baso # (Auto) 0.1 Abs Immat Gran (auto) 0.11 H Absolute Neuts (auto) 17.3 H Absolute Nucleated RBC 0.000 Nucleated RBC % (auto) 0.0 Smear Tech's Comments VERIFIED ESR PT INR Sodium 141 Potassium 3.7 Chloride 106 Carbon Dioxide 23 Anion Gap 16 BUN 10 Creatinine 0.63 Estim Creat Clear Calc 73.9 Estimated GFR > 60 POC Glucose Random Glucose 89 Lactic Acid 1.5 Calcium 9.1 Magnesium 1.8 Total Bilirubin 0.7 AST 24 ALT 15 Alkaline Phosphatase 138 H Troponin I High Sens C-Reactive Protein 13.54 H B-Natriuretic Peptide Total Protein 6.8 Albumin 3.7 Urine Color Urine Appearance Urine pH Ur Specific [place] Urine Protein Urine Glucose (UA) Urine Ketones Urine Blood Urine Nitrite Ur Leukocyte Esterase Nasal Screen MRSA (PCR) Nasal S. aureus Screen Nasal MRSA/S.aureus Interp Stl C. cayetanensis PCR Stool Rotavirus A PCR Stl Adenov F 40/41 PCR Stool Astrovirus (PCR) Stool Campylobacter PCR Stool Cryptosporidium PCR Stl Sh Tox Pr E STEC PCR Stool E coli O157 PCR Stl Enterotoxigenic E PCR Stool EPEC (PCR) Stool EAEC (PCR) Stl E. histolytica PCR Stool Giardia Lamblia PCR Stl P. shigelloides PCR Stool Salmonella PCR Stool Sapovirus (PCR) Stl Shigella/EIEC PCR St Y.enterocolitica PCR Stool Vibrio (PCR) Stl Vibrio cholerae PCR Stl Norovirus GI/GII PCR Vancomycin Trough Respiratory Panel Ferrell Adenovirus (Rapid PCR) B.pert (TEM-PCR) B.parapertussis DNA PCR C. pneumoniae DNA (PCR) C. difficile Tox B Gene Coronavirus OC43 (PCR) Coronavirus HKU1 (PCR) Coronavirus 229E (PCR) COVID-19 (LAURA) COVID-19 Clin Com Coronavirus NL63 (PCR) Human Metapneumovir PCR Influenza A (RT-PCR) Influenza Type A (PCR) Influenza B (RT-PCR) Influenza Type B (PCR) M. pneumoniae (PCR) Parainfluenza 1 (PCR) Parainfluenza 2 (PCR) Parainfluenza 3 (PCR) Parainfluenza 4 (PCR) RSV (PCR) RSV RNA Qual (PCR) Entero/Rhino (PCR) SARS-CoV-2 RNA (RT-PCR) Ur Strep pneumoniae Ag 04/26/22 04/26/22 04/26/22 19:15 19:27 21:20 WBC RBC Hgb Hct MCV MCH MCHC RDW Plt Count MPV Immature Gran % (Auto) Neut % (Auto) Lymph % (Auto) [place] % (Auto) Eos % (Auto) Baso % (Auto) Lymph # (Auto) [place] # (Auto) Eos # (Auto) Baso # (Auto) Abs Immat Gran (auto) Absolute Neuts (auto) Absolute Nucleated RBC Nucleated RBC % (auto) Smear Tech's Comments ESR PT INR Sodium Potassium Chloride Carbon Dioxide Anion Gap BUN Creatinine Estim Creat Clear Calc Estimated GFR POC Glucose Random Glucose Lactic Acid Calcium Magnesium Total Bilirubin AST ALT Alkaline Phosphatase Troponin I High Sens 8.5 D C-Reactive Protein B-Natriuretic Peptide Total Protein Albumin Urine Color Urine Appearance Urine pH Ur Specific [place] Urine Protein Urine Glucose (UA) Urine Ketones Urine Blood Urine Nitrite Ur Leukocyte Esterase Nasal Screen MRSA (PCR) Nasal S. aureus Screen Nasal MRSA/S.aureus Interp Stl C. cayetanensis PCR Stool Rotavirus A PCR Stl Adenov F PCR Stool Astrovirus (PCR) Stool Campylobacter PCR Stool Cryptosporidium PCR Stl Sh Tox Pr E STEC PCR Stool E coli O157 PCR Stl Enterotoxigenic E PCR Stool EPEC (PCR) Stool EAEC (PCR) Stl E. histolytica PCR Stool Giardia Lamblia PCR Stl P. shigelloides PCR Stool Salmonella PCR Stool Sapovirus (PCR) Stl Shigella/EIEC PCR St Y.enterocolitica PCR Stool Vibrio (PCR) Stl Vibrio cholerae PCR Stl Norovirus GI/GII PCR Vancomycin Trough Respiratory Panel Ferrell Adenovirus (Rapid PCR) B.pert (TEM-PCR) B.parapertussis DNA PCR C. pneumoniae DNA (PCR) C. difficile Tox B Gene Coronavirus OC43 (PCR) Coronavirus HKU1 (PCR) Coronavirus 229E (PCR) COVID-19 (LAURA) Negative COVID-19 Clin Com See Note Coronavirus NL63 (PCR) Human Metapneumovir PCR Influenza A (RT-PCR) Influenza Type A (PCR) NEGATIVE Influenza B (RT-PCR) Influenza Type B (PCR) NEGATIVE M. pneumoniae (PCR) Parainfluenza 1 (PCR) Parainfluenza 2 (PCR) Parainfluenza 3 (PCR) Parainfluenza 4 (PCR) RSV (PCR) RSV RNA Qual (PCR) NEGATIVE Entero/Rhino (PCR) SARS-CoV-2 RNA (RT-PCR) NEGATIVE Ur Strep pneumoniae Ag 04/26/22 04/26/22 04/26/22 21:31 21:31 22:09 WBC RBC Hgb Hct MCV MCH MCHC RDW Plt Count MPV Immature Gran % (Auto) Neut % (Auto) Lymph % (Auto) [place] % (Auto) Eos % (Auto) Baso % (Auto) Lymph # (Auto) [place] # (Auto) Eos # (Auto) Baso # (Auto) Abs Immat Gran (auto) Absolute Neuts (auto) Absolute Nucleated RBC Nucleated RBC % (auto) Smear Tech's Comments ESR 34 H PT INR Sodium Potassium Chloride Carbon Dioxide Anion Gap BUN Creatinine Estim Creat Clear Calc Estimated GFR POC Glucose Random Glucose Lactic Acid Calcium Magnesium Total Bilirubin AST ALT Alkaline Phosphatase Troponin I High Sens 16.9 D C-Reactive Protein B-Natriuretic Peptide 64 Total Protein Albumin Urine Color Urine Appearance Urine pH Ur Specific [place] Urine Protein Urine Glucose (UA) Urine Ketones Urine Blood Urine Nitrite Ur Leukocyte Esterase Nasal Screen MRSA (PCR) Nasal S. aureus Screen Nasal MRSA/S.aureus Interp Stl C. cayetanensis PCR Stool Rotavirus A PCR Stl Adenov F 40/41 PCR Stool Astrovirus (PCR) Stool Campylobacter PCR Stool Cryptosporidium PCR Stl Sh Tox Pr E STEC PCR Stool E coli O157 PCR Stl Enterotoxigenic E PCR Stool EPEC (PCR) Stool EAEC (PCR) Stl E. histolytica PCR Stool Giardia Lamblia PCR Stl P. shigelloides PCR Stool Salmonella PCR Stool Sapovirus (PCR) Stl Shigella/EIEC PCR St Y.enterocolitica PCR Stool Vibrio (PCR) Stl Vibrio cholerae PCR Stl Norovirus GI/GII PCR Vancomycin Trough Respiratory Panel Ferrell Adenovirus (Rapid PCR) B.pert (TEM-PCR) B.parapertussis DNA PCR C. pneumoniae DNA (PCR) C. difficile Tox B Gene Coronavirus OC43 (PCR) Coronavirus HKU1 (PCR) Coronavirus 229E (PCR) COVID-19 (LAURA) COVID-19 Clin Com Coronavirus NL63 (PCR) Human Metapneumovir PCR Influenza A (RT-PCR) Influenza Type A (PCR) Influenza B (RT-PCR) Influenza Type B (PCR) M. pneumoniae (PCR) Parainfluenza 1 (PCR) Parainfluenza 2 (PCR) Parainfluenza 3 (PCR) Parainfluenza 4 (PCR) RSV (PCR) RSV RNA Qual (PCR) Entero/Rhino (PCR) SARS-CoV-2 RNA (RT-PCR) Ur Strep pneumoniae Ag 04/26/22 04/26/22 04/27/22 22:55 23:30 05:38 WBC 23.4 H RBC 3.77 L Hgb 12.5 Hct 38.5 MCV 102.1 H MCH 33.2 H MCHC 32.5 RDW 15.2 Plt Count 208 MPV 10.6 Immature Gran % (Auto) 0.8 H Neut % (Auto) 88.1 H Lymph % (Auto) 7.7 L [place] % (Auto) 3.0 Eos % (Auto) 0.1 Baso % (Auto) 0.3 Lymph # (Auto) 1.8 [place] # (Auto) 0.7 Eos # (Auto) 0.0 Baso # (Auto) 0.1 Abs Immat Gran (auto) 0.18 H Absolute Neuts (auto) 20.7 H Absolute Nucleated RBC 0.000 Nucleated RBC % (auto) 0.0 Smear Tech's Comments VERIFIED ESR PT INR Sodium Potassium Chloride Carbon Dioxide Anion Gap BUN Creatinine Estim Creat Clear Calc Estimated GFR POC Glucose Random Glucose Lactic Acid Calcium Magnesium Total Bilirubin AST ALT Alkaline Phosphatase Troponin I High Sens C-Reactive Protein B-Natriuretic Peptide Total Protein Albumin Urine Color Yellow Urine Appearance Clear Urine pH 6.0 Ur Specific [place] 1.015 Urine Protein Negative Urine Glucose (UA) Negative Urine Ketones Negative Urine Blood Negative Urine Nitrite Negative Ur Leukocyte Esterase Negative Nasal Screen MRSA (PCR) Nasal S. aureus Screen Nasal MRSA/S.aureus Interp Stl C. cayetanensis PCR Stool Rotavirus A PCR Stl Adenov F 40/41 PCR Stool Astrovirus (PCR) Stool Campylobacter PCR Stool Cryptosporidium PCR Stl Sh Tox Pr E STEC PCR Stool E coli O157 PCR Stl Enterotoxigenic E PCR Stool EPEC (PCR) Stool EAEC (PCR) Stl E. histolytica PCR Stool Giardia Lamblia PCR Stl P. shigelloides PCR Stool Salmonella PCR Stool Sapovirus (PCR) Stl Shigella/EIEC PCR St Y.enterocolitica PCR Stool Vibrio (PCR) Stl Vibrio cholerae PCR Stl Norovirus GI/GII PCR Vancomycin Trough Respiratory Panel Ferrell Adenovirus (Rapid PCR) B.pert (TEM-PCR) B.parapertussis DNA PCR C. pneumoniae DNA (PCR) C. difficile Tox B Gene Coronavirus OC43 (PCR) Coronavirus HKU1 (PCR) Coronavirus 229E (PCR) COVID-19 (LAURA) COVID-19 Clin Com Coronavirus NL63 (PCR) Human Metapneumovir PCR Influenza A (RT-PCR) Influenza Type A (PCR) Influenza B (RT-PCR) Influenza Type B (PCR) M. pneumoniae (PCR) Parainfluenza 1 (PCR) Parainfluenza 2 (PCR) Parainfluenza 3 (PCR) Parainfluenza 4 (PCR) RSV (PCR) RSV RNA Qual (PCR) Entero/Rhino (PCR) SARS-CoV-2 RNA (RT-PCR) Ur Strep pneumoniae Ag Not Detected 04/27/22 04/27/22 04/27/22 05:38 17:16 17:16 WBC RBC Hgb Hct MCV MCH MCHC RDW Plt Count MPV Immature Gran % (Auto) Neut % (Auto) Lymph % (Auto) [place] % (Auto) Eos % (Auto) Baso % (Auto) Lymph # (Auto) [place] # (Auto) Eos # (Auto) Baso # (Auto) Abs Immat Gran (auto) Absolute Neuts (auto) Absolute Nucleated RBC Nucleated RBC % (auto) Smear Tech's Comments ESR PT INR Sodium 143 Potassium 3.4 Chloride 109 H Carbon Dioxide 23 Anion Gap 14 BUN 10 Creatinine 0.64 Estim Creat Clear Calc 72.8 Estimated GFR > 60 POC Glucose Random Glucose 89 Lactic Acid Calcium 8.4 D Magnesium Total Bilirubin AST ALT Alkaline Phosphatase Troponin I High Sens C-Reactive Protein B-Natriuretic Peptide Total Protein Albumin Urine Color Urine Appearance Urine pH Ur Specific [place] Urine Protein Urine Glucose (UA) Urine Ketones Urine Blood Urine Nitrite Ur Leukocyte Esterase Nasal Screen MRSA (PCR) NEGATIVE Nasal S. aureus Screen POSITIVE A Nasal MRSA/S.aureus Interp SEE NOTE Stl C. cayetanensis PCR Stool Rotavirus A PCR Stl Adenov F 40/41 PCR Stool Astrovirus (PCR) Stool Campylobacter PCR Stool Cryptosporidium PCR Stl Sh Tox Pr E STEC PCR Stool E coli O157 PCR Stl Enterotoxigenic E PCR Stool EPEC (PCR) Stool EAEC (PCR) Stl E. histolytica PCR Stool Giardia Lamblia PCR Stl P. shigelloides PCR Stool Salmonella PCR Stool Sapovirus (PCR) Stl Shigella/EIEC PCR St Y.enterocolitica PCR Stool Vibrio (PCR) Stl Vibrio cholerae PCR Stl Norovirus GI/GII PCR Vancomycin Trough Respiratory Panel Ferrell See note Adenovirus (Rapid PCR) Not Detected B.pert (TEM-PCR) Not Detected B.parapertussis DNA PCR Not Detected C. pneumoniae DNA (PCR) Not Detected C. difficile Tox B Gene Coronavirus OC43 (PCR) Not Detected Coronavirus HKU1 (PCR) Not Detected Coronavirus 229E (PCR) Not Detected COVID-19 ([facility]A) COVID-19 Clin Com Coronavirus NL63 (PCR) Not Detected Human Metapneumovir PCR Not Detected Influenza A (RT-PCR) Not Detected Influenza Type A (PCR) Influenza B (RT-PCR) Not Detected Influenza Type B (PCR) M. pneumoniae (PCR) Not Detected Parainfluenza 1 (PCR) Not Detected Parainfluenza 2 (PCR) Not Detected Parainfluenza 3 (PCR) Not Detected Parainfluenza 4 (PCR) Not Detected RSV (PCR) Not Detected RSV RNA Qual (PCR) Entero/Rhino (PCR) Not Detected SARS-CoV-2 RNA (RT-PCR) Not Detected Ur Strep pneumoniae Ag 04/27/22 04/27/22 04/28/22 23:50 23:50 08:51 WBC 8.2 RBC 3.35 L Hgb 11.0 L Hct 34.5 L MCV 103.0 H MCH 32.8 MCHC 31.9 RDW 14.9 Plt Count 185 MPV 10.4 Immature Gran % (Auto) 0.4 Neut % (Auto) 76.5 H Lymph % (Auto) 17.4 L [place] % (Auto) 4.5 Eos % (Auto) 0.7 Baso % (Auto) 0.5 Lymph # (Auto) 1.4 [place] # (Auto) 0.4 Eos # (Auto) 0.1 Baso # (Auto) 0.0 Abs Immat Gran (auto) 0.03 Absolute Neuts (auto) 6.3 Absolute Nucleated RBC 0.000 Nucleated RBC % (auto) 0.0 Smear Tech's Comments ESR PT INR Sodium Potassium Chloride Carbon Dioxide Anion Gap BUN Creatinine Estim Creat Clear Calc Estimated GFR POC Glucose Random Glucose Lactic Acid Calcium Magnesium Total Bilirubin AST ALT Alkaline Phosphatase Troponin I High Sens C-Reactive Protein B-Natriuretic Peptide Total Protein Albumin Urine Color Urine Appearance Urine pH Ur Specific [place] Urine Protein Urine Glucose (UA) Urine Ketones Urine Blood Urine Nitrite Ur Leukocyte Esterase Nasal Screen MRSA (PCR) Nasal S. aureus Screen Nasal MRSA/S.aureus Interp Stl C. cayetanensis PCR Cancelled Stool Rotavirus A PCR Cancelled Stl Adenov F 40 PCR Cancelled Stool Astrovirus (PCR) Cancelled Stool Campylobacter PCR Cancelled Stool Cryptosporidium PCR Cancelled Stl Sh Tox Pr E STEC PCR Cancelled Stool E coli O157 PCR Cancelled Stl Enterotoxigenic E PCR Cancelled Stool EPEC (PCR) Cancelled Stool EAEC (PCR) Cancelled Stl E. histolytica PCR Cancelled Stool Giardia Lamblia PCR Cancelled Stl P. shigelloides PCR Cancelled Stool Salmonella PCR Cancelled Stool Sapovirus (PCR) Cancelled Stl Shigella/EIEC PCR Cancelled St Y.enterocolitica PCR Cancelled Stool Vibrio (PCR) Cancelled Stl Vibrio cholerae PCR Cancelled Stl Norovirus GI/GII PCR Cancelled Vancomycin Trough Respiratory Panel Ferrell Adenovirus (Rapid PCR) B.pert (TEM-PCR) B.parapertussis DNA PCR C. pneumoniae DNA (PCR) C. difficile Tox B Gene NEGATIVE Coronavirus OC43 (PCR) Coronavirus HKU1 (PCR) Coronavirus 229E (PCR) COVID-19 ([facility]URA) COVID-19 Clin Com Coronavirus NL63 (PCR) Human Metapneumovir PCR Influenza A (RT-PCR) Influenza Type A (PCR) Influenza B (RT-PCR) Influenza Type B (PCR) M. pneumoniae (PCR) Parainfluenza 1 (PCR) Parainfluenza 2 (PCR) Parainfluenza 3 (PCR) Parainfluenza 4 (PCR) RSV (PCR) RSV RNA Qual (PCR) Entero/Rhino (PCR) SARS-CoV-2 RNA (RT-PCR) Ur Strep pneumoniae Ag 04/28/22 04/28/22 04/28/22 08:51 08:51 08:51 WBC RBC Hgb Hct MCV MCH MCHC RDW Plt Count MPV Immature Gran % (Auto) Neut % (Auto) Lymph % (Auto) [place] % (Auto) Eos % (Auto) Baso % (Auto) Lymph # (Auto) [place] # (Auto) Eos # (Auto) Baso # (Auto) Abs Immat Gran (auto) Absolute Neuts (auto) Absolute Nucleated RBC Nucleated RBC % (auto) Smear Tech's Comments ESR PT INR Sodium 144 144 Potassium 3.5 3.5 Chloride 113 H 112 H Carbon Dioxide 23 23 Anion Gap 12 13 BUN 10 10 Creatinine 0.62 0.60 Estim Creat Clear Calc 75.1 77.6 Estimated GFR > 60 > 60 POC Glucose Random Glucose 90 89 Lactic Acid Calcium 8.2 L 8.3 L Magnesium Total Bilirubin AST ALT Alkaline Phosphatase Troponin I High Sens C-Reactive Protein B-Natriuretic Peptide Total Protein Albumin Urine Color Urine Appearance Urine pH Ur Specific [place] Urine Protein Urine Glucose (UA) Urine Ketones Urine Blood Urine Nitrite Ur Leukocyte Esterase Nasal Screen MRSA (PCR) Nasal S. aureus Screen Nasal MRSA/S.aureus Interp Stl C. cayetanensis PCR Stool Rotavirus A PCR Stl Adenov F 40/41 PCR Stool Astrovirus (PCR) Stool Campylobacter PCR Stool Cryptosporidium PCR Stl Sh Tox Pr E STEC PCR Stool E coli O157 PCR Stl Enterotoxigenic E PCR Stool EPEC (PCR) Stool EAEC (PCR) Stl E. histolytica PCR Stool Giardia Lamblia PCR Stl P. shigelloides PCR Stool Salmonella PCR Stool Sapovirus (PCR) Stl Shigella/EIEC PCR St Y.enterocolitica PCR Stool Vibrio (PCR) Stl Vibrio cholerae PCR Stl Norovirus GI/GII PCR Vancomycin Trough 15.6 Respiratory Panel Ferrell Adenovirus (Rapid PCR) B.pert (TEM-PCR) B.parapertussis DNA PCR C. pneumoniae DNA (PCR) C. difficile Tox B Gene Coronavirus OC43 (PCR) Coronavirus HKU1 (PCR) Coronavirus 229E (PCR) COVID-19 ([facility]URA) COVID-19 Clin Com Coronavirus NL63 (PCR) Human Metapneumovir PCR Influenza A (RT-PCR) Influenza Type A (PCR) Influenza B (RT-PCR) Influenza Type B (PCR) M. pneumoniae (PCR) Parainfluenza 1 (PCR) Parainfluenza 2 (PCR) Parainfluenza 3 (PCR) Parainfluenza 4 (PCR) RSV (PCR) RSV RNA Qual (PCR) Entero/Rhino (PCR) SARS-CoV-2 RNA (RT-PCR) Ur Strep pneumoniae Ag 04/29/22 04/29/22 04/29/22 03:58 03:58 03:58 WBC 5.4 RBC 3.04 L Hgb 10.0 L Hct 31.6 L MCV 103.9 H MCH 32.9 MCHC 31.6 RDW 14.8 Plt Count 167 MPV 10.3 Immature Gran % (Auto) 0.4 Neut % (Auto) 60.2 Lymph % (Auto) 31.7 [place] % (Auto) 5.8 Eos % (Auto) 1.3 Baso % (Auto) 0.6 Lymph # (Auto) 1.7 [place] # (Auto) 0.3 Eos # (Auto) 0.1 Baso # (Auto) 0.0 Abs Immat Gran (auto) 0.02 Absolute Neuts (auto) 3.2 Absolute Nucleated RBC 0.000 Nucleated RBC % (auto) 0.0 Smear Tech's Comments ESR PT INR Sodium 146 H Potassium 3.2 L Chloride 113 H Carbon Dioxide 23 Anion Gap 13 BUN 11 Creatinine 0.56 Estim Creat Clear Calc 83.1 Estimated GFR > 60 POC Glucose Random Glucose 97 Lactic Acid 0.7 Calcium 8.2 L Magnesium Total Bilirubin AST ALT Alkaline Phosphatase Troponin I High Sens C-Reactive Protein B-Natriuretic Peptide Total Protein Albumin Urine Color Urine Appearance Urine pH Ur Specific [place] Urine Protein Urine Glucose (UA) Urine Ketones Urine Blood Urine Nitrite Ur Leukocyte Esterase Nasal Screen MRSA (PCR) Nasal S. aureus Screen Nasal MRSA/S.aureus Interp Stl C. cayetanensis PCR Stool Rotavirus A PCR Stl Adenov F 40/41 PCR Stool Astrovirus (PCR) Stool Campylobacter PCR Stool Cryptosporidium PCR Stl Sh Tox Pr E STEC PCR Stool E coli O157 PCR Stl Enterotoxigenic E PCR Stool EPEC (PCR) Stool EAEC (PCR) Stl E. histolytica PCR Stool Giardia Lamblia PCR Stl P. shigelloides PCR Stool Salmonella PCR Stool Sapovirus (PCR) Stl Shigella/EIEC PCR St Y.enterocolitica PCR Stool Vibrio (PCR) Stl Vibrio cholerae PCR Stl Norovirus GI/GII PCR Vancomycin Trough Respiratory Panel Ferrell Adenovirus (Rapid PCR) B.pert (TEM-PCR) B.parapertussis DNA PCR C. pneumoniae DNA (PCR) C. difficile Tox B Gene Coronavirus OC43 (PCR) Coronavirus HKU1 (PCR) Coronavirus 229E (PCR) COVID-19 (LAURA) COVID-19 Clin Com Coronavirus NL63 (PCR) Human Metapneumovir PCR Influenza A (RT-PCR) Influenza Type A (PCR) Influenza B (RT-PCR) Influenza Type B (PCR) M. pneumoniae (PCR) Parainfluenza 1 (PCR) Parainfluenza 2 (PCR) Parainfluenza 3 (PCR) Parainfluenza 4 (PCR) RSV (PCR) RSV RNA Qual (PCR) Entero/Rhino (PCR) SARS-CoV-2 RNA (RT-PCR) Ur Strep pneumoniae Ag 04/29/22 04/30/22 04/30/22 09:05 06:16 06:16 WBC 3.6 L RBC 2.96 L Hgb 9.9 L Hct 31.2 L MCV 105.4 H MCH 33.4 H MCHC 31.7 RDW 14.5 Plt Count 154 L MPV 11.4 Immature Gran % (Auto) 0.8 H Neut % (Auto) 45.8 Lymph % (Auto) 40.9 H [place] % (Auto) 8.1 Eos % (Auto) 3.6 Baso % (Auto) 0.8 Lymph # (Auto) 1.5 [place] # (Auto) 0.3 Eos # (Auto) 0.1 Baso # (Auto) 0.0 Abs Immat Gran (auto) 0.03 Absolute Neuts (auto) 1.6 L Absolute Nucleated RBC 0.000 Nucleated RBC % (auto) 0.0 Smear Tech's Comments ESR PT INR Sodium 144 Potassium 3.3 Chloride 111 H Carbon Dioxide 25 Anion Gap 11 L BUN 7 L Creatinine 0.55 Estim Creat Clear Calc 84.7 Estimated GFR > 60 POC Glucose Random Glucose 83 Lactic Acid Calcium 8.3 L Magnesium Total Bilirubin AST ALT Alkaline Phosphatase Troponin I High Sens C-Reactive Protein B-Natriuretic Peptide Total Protein Albumin Urine Color Urine Appearance Urine pH Ur Specific [place] Urine Protein Urine Glucose (UA) Urine Ketones Urine Blood Urine Nitrite Ur Leukocyte Esterase Nasal Screen MRSA (PCR) Nasal S. aureus Screen Nasal MRSA/S.aureus Interp Stl C. cayetanensis PCR Stool Rotavirus A PCR Stl Adenov F 40 PCR Stool Astrovirus (PCR) Stool Campylobacter PCR Stool Cryptosporidium PCR Stl Sh Tox Pr E STEC PCR Stool E coli O157 PCR Stl Enterotoxigenic E PCR Stool EPEC (PCR) Stool EAEC (PCR) Stl E. histolytica PCR Stool Giardia Lamblia PCR Stl P. shigelloides PCR Stool Salmonella PCR Stool Sapovirus (PCR) Stl Shigella/EIEC PCR St Y.enterocolitica PCR Stool Vibrio (PCR) Stl Vibrio cholerae PCR Stl Norovirus GI/GII PCR Vancomycin Trough 16.7 Respiratory Panel Ferrell Adenovirus (Rapid PCR) B.pert (TEM-PCR) B.parapertussis DNA PCR C. pneumoniae DNA (PCR) C. difficile Tox B Gene Coronavirus OC43 (PCR) Coronavirus HKU1 (PCR) Coronavirus 229E (PCR) COVID-19 (LAURA) COVID-19 Clin Com Coronavirus NL63 (PCR) Human Metapneumovir PCR Influenza A (RT-PCR) Influenza Type A (PCR) Influenza B (RT-PCR) Influenza Type B (PCR) M. pneumoniae (PCR) Parainfluenza 1 (PCR) Parainfluenza 2 (PCR) Parainfluenza 3 (PCR) Parainfluenza 4 (PCR) RSV (PCR) RSV RNA Qual (PCR) Entero/Rhino (PCR) SARS-CoV-2 RNA (RT-PCR) Ur Strep pneumoniae Ag 05/01/22 05/01/22 05/02/22 03:48 06:25 07:09 WBC RBC Hgb Hct MCV MCH MCHC RDW Plt Count MPV Immature Gran % (Auto) Neut % (Auto) Lymph % (Auto) [place] % (Auto) Eos % (Auto) Baso % (Auto) Lymph # (Auto) [place] # (Auto) Eos # (Auto) Baso # (Auto) Abs Immat Gran (auto) Absolute Neuts (auto) Absolute Nucleated RBC Nucleated RBC % (auto) Smear Tech's Comments ESR PT INR Sodium Potassium Chloride Carbon Dioxide Anion Gap BUN Creatinine 0.49 L 0.52 Estim Creat Clear Calc 95.0 89.5 Estimated GFR > 60 > 60 POC Glucose 131 H Random Glucose Lactic Acid Calcium Magnesium Total Bilirubin AST ALT Alkaline Phosphatase Troponin I High Sens C-Reactive Protein B-Natriuretic Peptide Total Protein Albumin Urine Color Urine Appearance Urine pH Ur Specific [place] Urine Protein Urine Glucose (UA) Urine Ketones Urine Blood Urine Nitrite Ur Leukocyte Esterase Nasal Screen MRSA (PCR) Nasal S. aureus Screen Nasal MRSA/S.aureus Interp Stl C. cayetanensis PCR Stool Rotavirus A PCR Stl Adenov F 40 PCR Stool Astrovirus (PCR) Stool Campylobacter PCR Stool Cryptosporidium PCR Stl Sh Tox Pr E STEC PCR Stool E coli O157 PCR Stl Enterotoxigenic E PCR Stool EPEC (PCR) Stool EAEC (PCR) Stl E. histolytica PCR Stool Giardia Lamblia PCR Stl P. shigelloides PCR Stool Salmonella PCR Stool Sapovirus (PCR) Stl Shigella/EIEC PCR St Y.enterocolitica PCR Stool Vibrio (PCR) Stl Vibrio cholerae PCR Stl Norovirus GI/GII PCR Vancomycin Trough Respiratory Panel Ferrell Adenovirus (Rapid PCR) B.pert (TEM-PCR) B.parapertussis DNA PCR C. pneumoniae DNA (PCR) C. difficile Tox B Gene Coronavirus OC43 (PCR) Coronavirus HKU1 (PCR) Coronavirus 229E (PCR) COVID-19 (LAURA) COVID-19 Clin Com Coronavirus NL63 (PCR) Human Metapneumovir PCR Influenza A (RT-PCR) Influenza Type A (PCR) Influenza B (RT-PCR) Influenza Type B (PCR) M. pneumoniae (PCR) Parainfluenza 1 (PCR) Parainfluenza 2 (PCR) Parainfluenza 3 (PCR) Parainfluenza 4 (PCR) RSV (PCR) RSV RNA Qual (PCR) Entero/Rhino (PCR) SARS-CoV-2 RNA (RT-PCR) Ur Strep pneumoniae Ag 05/03/22 06:16 WBC RBC Hgb Hct MCV MCH MCHC RDW Plt Count MPV Immature Gran % (Auto) Neut % (Auto) Lymph % (Auto) [place] % (Auto) Eos % (Auto) Baso % (Auto) Lymph # (Auto) [place] # (Auto) Eos # (Auto) Baso # (Auto) Abs Immat Gran (auto) Absolute Neuts (auto) Absolute Nucleated RBC Nucleated RBC % (auto) Smear Tech's Comments ESR PT 15.3 H INR 1.3 H Sodium Potassium Chloride Carbon Dioxide Anion Gap BUN Creatinine Estim Creat Clear Calc Estimated GFR POC Glucose Random Glucose Lactic Acid Calcium Magnesium Total Bilirubin AST ALT Alkaline Phosphatase Troponin I High Sens C-Reactive Protein B-Natriuretic Peptide Total Protein Albumin Urine Color Urine Appearance Urine pH Ur Specific [place] Urine Protein Urine Glucose (UA) Urine Ketones Urine Blood Urine Nitrite Ur Leukocyte Esterase Nasal Screen MRSA (PCR) Nasal S. aureus Screen Nasal MRSA/S.aureus Interp Stl C. cayetanensis PCR Stool Rotavirus A PCR Stl Adenov F 40/41 PCR Stool Astrovirus (PCR) Stool Campylobacter PCR Stool Cryptosporidium PCR Stl Sh Tox Pr E STEC PCR Stool E coli O157 PCR Stl Enterotoxigenic E PCR Stool EPEC (PCR) Stool EAEC (PCR) Stl E. histolytica PCR Stool Giardia Lamblia PCR Stl P. shigelloides PCR Stool Salmonella PCR Stool Sapovirus (PCR) Stl Shigella/EIEC PCR St Y.enterocolitica PCR Stool Vibrio (PCR) Stl Vibrio cholerae PCR Stl Norovirus GI/GII PCR Vancomycin Trough Respiratory Panel Ferrell Adenovirus (Rapid PCR) B.pert (TEM-PCR) B.parapertussis DNA PCR C. pneumoniae DNA (PCR) C. difficile Tox B Gene Coronavirus OC43 (PCR) Coronavirus HKU1 (PCR) Coronavirus 229E (PCR) COVID-19 (LAURA) COVID-19 Clin Com Coronavirus NL63 (PCR) Human Metapneumovir PCR Influenza A (RT-PCR) Influenza Type A (PCR) Influenza B (RT-PCR) Influenza Type B (PCR) M. pneumoniae (PCR) Parainfluenza 1 (PCR) Parainfluenza 2 (PCR) Parainfluenza 3 (PCR) Parainfluenza 4 (PCR) RSV (PCR) RSV RNA Qual (PCR) Entero/Rhino (PCR) SARS-CoV-2 RNA (RT-PCR) Ur Strep pneumoniae Ag Airway Mallampati Class: IV TM Dist: <=3cm Neck ROM: Limited Loose/Missing/Broken Teeth: Yes Heart: S1,S2 Lungs: distant breath sounds Assessment and Plan Assessment Anesthesia Assessment: Anesthesia Plan Discussed and Chart Reviewed Final Anesthetic Review Family History of Problems with Anesthesia: No History of Problems with Anesthesia: Yes (delayed emergence ) NPO: Yes ASA Class: IV Final Preanesthetic Review: Meds/Allgs Chart Reviewed, Consent Obtained/Reviewed and Anes Risks/Benef Reviewed Patient Risk: High Procedure Risk: Intermediate Anesthetic Plan Anesthetic Plan: MAC: Disposition: Inp. Admit - Standard Bed
--- NOTE | 2022-05-03 15:17 | P.BOP_ITS ---
Brief Operative Note Date of Service: 05/03/22 Pre-op diagnosis: dysphagia Post-op diagnosis: same Procedure: EGD/PEG Implants: 20 F gtube Surgeon: Michael Sevilla Anesthesia: MAC Was an Log Chain Feeder used for this Procedure?: No Estimated blood loss (mL): 5 Pathology: none sent Condition: stable Disposition: PACU
--- NOTE | 2022-05-03 15:19 | PM.EVENT ---
Event Note Date of Service: 05/03/22 Event Note: GI EGD shows gastritits 20F traction removable g tube placed without difficulty use for meds today ok to start tube feeds in am.
[2022-05-03 16:01] LABS: Levetiracetam Keppra 28.1 mcg/mL (6.0-46.0)
[2022-05-03] MEDS: lamoTRIgine 25 MG TABLET PO ×2 (16:15→22:56)
[2022-05-03] MEDS: Levothyroxine Sodium 88 MCG TABLET PO (16:15)
[2022-05-03] MEDS: levETIRAcetam Oral Soln 500 MG/5 ML 200 MG PO (16:15)
[2022-05-03] MEDS: Donepezil HCl 5 MG TABLET PO (22:56)
[2022-05-03] MEDS: levETIRAcetam Oral Soln 500 MG/5 ML 1350 MG PO (22:56)
[2022-05-03] MEDS: Enoxaparin Sodium 40 MG/0.4 ML SYRINGE SUBCUT (22:57)
[2022-05-03] MEDS: Acetaminophen 325 MG TABLET 650 MG PO (22:58)
[2022-05-04] VITALS: BP 117/56; PULSE 52; RESP 18; TEMP 35.7; O2SAT 96
[2022-05-04] MEDS: cefEPime HCl 2 GM in 0.9 % Sodium Chloride 50 ML IV ×3 (00:38→17:08)
--- NOTE | 2022-05-04 03:30 | OP_ITS ---
SURGEON: Michael Sevilla MD INDICATIONS: Dysphagia. PREOPERATIVE DIAGNOSIS: POSTOPERATIVE DIAGNOSIS: PROCEDURE PERFORMED: ESTIMATED BLOOD LOSS: COMPLICATIONS: ANESTHESIA: ASSISTANTS: SPECIMENS: PROCEDURE: Upper endoscopy with placement of percutaneous endoscopic gastrostomy tube. MEDICATIONS: Monitored anesthesia care. DESCRIPTION OF PROCEDURE: Date: 05/03/22 History and physical performed. The risks and benefits of the procedure were explained to the patient's sister. Informed consent was obtained. The patient was placed in the supine position. The Olympus video gastroscope was introduced into the esophagus, stomach, and duodenum. Examination was performed. The scope was removed. She tolerated the procedure well and was taken to recovery room in stable condition. FINDINGS: Esophagus: The esophagus was normal. Stomach: The stomach showed a diffuse mild gastritis. No ulceration or bleeding was identified. Duodenum: The bulb and second portion were normal. A suitable site was localized on the anterior abdominal wall using transillumination of the endoscopic light source and endoscopic verification of digital impression. This was near the previous G-tube placement scar. The site was sterilely prepped and draped and infiltrated with 1% xylocaine. A hollow needle and plastic catheter were advanced into the stomach after a small incision was made with a scalpel. The needle was removed leaving the catheter in place. A guidewire was passed through the catheter and grasped with a snare, passed through the endoscope. The endoscope and snare were removed from the patient leaving the guidewire in position. Next, a 20-Niger[place] traction removable gastrostomy tube was attached to the guidewire and placed in good position after being lubricated and pulled into position using the pull technique. The catheter was trimmed. A dry sterile dressing was applied and the endoscope was reinserted into the patient visualizing the G-tube in good position with no bleeding. IMPRESSION: 1. G-tube placement. 2. Gastritis. RECOMMENDATION: 1. The tube may be used for medications starting today. Do not start tube feeds until the a.m. 2. Proton pump inhibitor for gastritis. MD KEESHA Barron/DEJAN / [id number] MTDD
[2022-05-04 04:00] VITALS: BP 120/56; PULSE 48; RESP 20; TEMP 35.9; O2SAT 96
[2022-05-04] MEDS: levETIRAcetam Oral Soln 500 MG/5 ML 50 MG PO (06:13)
[2022-05-04] MEDS: 0.9 % Sodium Chloride Flush 3 ML SYRINGE IVFLUSH ×4 (06:14→22:03)
[2022-05-04 06:25] LABS: Hematocrit 31.6 % (37.0-47.0); Hemoglobin 10.1 g/dl (12.0-16.0); Mean Corpuscular Hemoglobin 32.8 pg (27.0-33.0); Mean Corpuscular Volume 102.6 fL (80.0-98.0); Mean Platelet Volume 11.2 fL (9.4-12.3); Platelet Count 244 X10*3/uL (160-400); Red Blood Count 3.08 X10*6/uL (4.20-5.50); Red Cell Distribution Width 14.6 % (11.0-16.0); White Blood Count 4.1 X10*3/uL (4.8-10.8)
[2022-05-04 08:00] VITALS: BP 154/71; PULSE 96; RESP 20; TEMP 36.8; O2SAT 96
--- NOTE | 2022-05-04 09:37 | HO.PM.IMPN ---
Subjective Subjective Date of Service: 05/04/22 Interval History: follow up for pneumonia Sleeping on and off she is primarily nonverbal at baseline, unable to obtain ROS Status post G-tube Physical Exam Vital Signs: Vital Signs: Last Vital Signs Temp 96.7 F L 05/04/22 04:00 Pulse 48 L 05/04/22 04:00 Resp 20 05/04/22 04:00 BP 120/56 L 05/04/22 04:00 Pulse Ox 96 05/04/22 04:00 O2 Del Method 05/04/22 04:00 O2 Flow Rate 3 05/04/22 04:00 Oxygen Flow Rate 2 04/26/22 18:55 BMI result Body Mass Index 29.2 Appearing in no acute distress lung sounds are clear to auscultation heart regular rate rhythm, clear S1, S2 positive bowel sounds, abdomen is soft, nontender, G-tube in place neuro patient is alert Objective Data Active Medications Acetaminophen (Acetaminophen Supp 650 Mg Supp.Rect) 650 mg GA Q4H PRN PRN Reason: Fever Last Admin: 05/02/22 21:52 Dose: 650 mg Documented By: ANNEMARIE Acetaminophen (Acetaminophen 325 Mg Tablet) 650 mg PO Q6H PRN PRN Reason: Pain, Mild (Pain Scale 1-3) Last Admin: 05/03/22 22:58 Dose: 650 mg Documented By: BRIAN Chlorhexidine Gluconate (Chlorhexidine Gluc Oral Rinse 15 Ml Mouthwash) 15 ml BUCCAL BID [facility] Last Admin: 05/03/22 22:57 Dose: 15 ml Documented By: BRIAN Donepezil HCl (Donepezil Hcl 5 Mg Tablet) 5 mg PO DAILY@2200 [facility] Last Admin: 05/03/22 22:56 Dose: 5 mg Documented By: BRIAN Enoxaparin Sodium (Enoxaparin Sodium 40 Mg/0.4 Ml Syringe) 40 mg SUBCUT Q24H [facility] Last Admin: 05/03/22 22:57 Dose: 40 mg Documented By: BRIAN Guaifenesin (Guaifenesin 200 Mg/10 Ml 10 Ml Liquid) 10 ml PO Q6H PRN PRN Reason: Cough Last Admin: 04/29/22 12:10 Dose: 10 ml Documented By: CHACHA Cefepime HCl 2 gm/ Sodium (Chloride) 50 mls @ 100 mls/hr IV Q8H [facility] Last Infusion: 05/04/22 06:14 Dose: 100 mls/hr Documented By: NICHOLAS Lactic Acid (Ammonium Lactate 12 % Lotion 226 Gm Bottle) 1 appl TOPICAL BID PRN; Protocol PRN Reason: Dry Skin Last Admin: 04/29/22 21:30 Dose: 1 appl Documented By: BRIAN Lamotrigine (Lamotrigine 25 Mg Tablet) 25 mg PO BID [facility] Last Admin: 05/03/22 22:56 Dose: 25 mg Documented By: BRIAN Levetiracetam (Levetiracetam Oral Soln 500 Mg/5 Ml) 1,350 mg PO BEDTIME [facility] Last Admin: 05/03/22 22:56 Dose: 1,350 mg Documented By: BRIAN Levetiracetam (Levetiracetam Oral Soln 500 Mg/5 Ml) 200 mg PO DAILY@0900 [facility] Last Admin: 05/03/22 16:15 Dose: 200 mg Documented By: BRIAN Levetiracetam (Levetiracetam Oral Soln 500 Mg/5 Ml) 50 mg PO DAILY@0400 [facility] Last Admin: 05/04/22 06:13 Dose: 50 mg Documented By: NICHOLAS Levetiracetam (Levetiracetam Oral Soln 500 Mg/5 Ml) 50 mg PO DAILY PRN PRN Reason: Seizure Activity Levothyroxine Sodium (Levothyroxine Sodium 88 Mcg Tablet) 88 mcg PO DAILY@1030 [facility] Last Admin: 05/03/22 16:15 Dose: 88 mcg Documented By: BRIAN Patient Own ( Lacosamide [Vimpat] 10 Mg/Ml Solution) 100 mg PO BEDTIME@2030 [facility] Last Admin: 05/03/22 20:37 Dose: 100 mg Documented By: BRIAN Pt Own (Midazolam [ Nayzilam] 5 Mg/[place] (0.1 Ml) [place],Non- Aerosol) 5 mg NOSTRIL-B DAILY PRN PRN Reason: Seizure Activity Nystatin (Nystatin Cream 15 Gm Tube) 1 appl TOPICAL TID [facility]; Protocol Last Admin: 05/03/22 22:57 Dose: Not Given Documented By: BRIAN Non-Admin Reason: Patient Refused Omeprazole (Omeprazole 20 Mg/10 Ml Susp.Recon) 20 mg G-TUBE DAILY@0630 [facility] Last Admin: 05/04/22 06:14 Dose: 20 mg Documented By: NICHOLAS Pharmacy Consult (Consult Rx Perform Med Rec) 1 each MISCELLANE ONCE PRN PRN Reason: Consult order Polyethylene Glycol (Polyethylene Glycol 3350 17 Gm Powd.Pack) 17 gm PO DAILY [facility] Last Admin: 05/03/22 10:19 Dose: Not Given Documented By: YAJAIRA Non-Admin Reason: NPO Sodium Chloride (0.9 % Sodium Chloride Flush 3 Ml Syringe) 3 ml IVFLUSH QSHIFT [facility] Last Admin: 05/04/22 06:14 Dose: 3 ml Documented By: NICHOLAS Labs CBC & Chem 7: 05/04/22 05:40 05/02/22 07:09 Labs: Laboratory Results - last 24 hr 05/01/22 05/04/22 06:25 05:40 MCV 102.6 H MCH 32.8 MCHC 32.0 RDW 14.6 Plt Count 244 D MPV 11.2 Absolute Nucleated RBC 0.000 Nucleated RBC % (auto) 0.0 Levetiracetam 28.1 Assessment and Plan (1) Aspiration pneumonitis: Status: Acute Plan 61-year-old female a past medical history of Down syndrome, dementia,? dysphasia, seizures, history of chronic aspiration PNA, LEONIE on CPAP, full-time caregiver is her sister? as patient requires 24/7 care, nonverbal at baseline admitted for sepsis of unspecified cause and CHF exacerbation Dysphagia MBSS. recommend pureed diet with thin liquids Barium swallow xray rec by pulm - showing aspiration in the trachea and proximal right mainstem bronchus status post G-tube, dietary consult pending for feeding recommendations Hypotension. Resolved likely r/t dehydration from decreased po intake improved with fluid overnight. Acute hypoxemic respiratory failure secondary to pneumonia UA negative, respiratory pathogen panel negative, nasal MRSA negative Albuterol nebs, guaifenesin as needed Supplemental oxygen, wean as tolerated seen by pulmonology Sepsis secondary to community-acquired pneumonia, possible aspiration. Resolved Met criteria with Tachycardia, tachypnea, leukocytosis treated with cefepime I am for 8 days, will discontinue Blood cultures negative to date Mild hypokalemia follow am BMP LEONIE CPAP Hypothyroidism Continue levothyroxine History of seizures Seizure precautions Continue home vimpat, keppra Dementia, unspecified without behavioral disturbances Continue home medications Stage II decubitus ulcer to the sacrum present on arrival, frequent repositioning, barrier cream, nutrition evaluation [facility] Rangel DISPO Plan for dc home possibly tomorrow inpatient need:Acute hypoxemic respiratory failure/Sepsis, toxic metabolic encephalopathy- - need IV antibiotics, oxygen support, nebs, suctioning Quality Stroke Does the patient have a stroke diagnosis?: No VTE Prior VTE?: No VTE Risk Level:: Medical - moderate - high VTE Device Contraindication: Treatment Not Indicated VTE Drug Contraindication: N/A - Med Ordered
[2022-05-04] MEDS: Chlorhexidine Gluc Oral Rinse 15 ML MOUTHWASH BUCCAL ×2 (09:55→22:00)
[2022-05-04] MEDS: levETIRAcetam Oral Soln 500 MG/5 ML 200 MG PO (09:55)
[2022-05-04] MEDS: Levothyroxine Sodium 88 MCG TABLET PO (09:55)
[2022-05-04] MEDS: Acetaminophen 325 MG TABLET 650 MG PO (10:00)
[2022-05-04] MEDS: lamoTRIgine 25 MG TABLET PO ×2 (10:07→22:01)
[2022-05-04 11:17] VITALS: BP 138/62; PULSE 52; RESP 17; TEMP 36.6; O2SAT 95
[2022-05-04 11:29] VITALS: BMI 29.2
--- NOTE | 2022-05-04 11:38 | MHC.CLN ---
RE; CONSULT PT WITH NEW G TUBE PLACED YESTERDAY WITH INCREASED NUTRITION RISK R/T PRESSURE INJURIES RECOMMEND TF JEVITY 1.0 AT MAX GOAL RATE 55ML/HR WITH 30ML PROSOURCE Q DAY AND 120ML FREE WATER FLUSHES Q 8 HRS TO PROVIDE 1459KCALS TOTAL FROM FORMULA AND PROTEIN SHOT (31KCALS/KG BASED ON CMW), 73G TOTAL PROTEIN (1.5G/KG), 1462ML TOTAL WATER FROM FORMULA AND FLUSHES (30ML/KG) START AT 20ML/HR AND INCREASE BY 10ML Q 4 HRS UNTIL MAX GOAL IS ACHIEVED MONITOR FOR TOLERANCE, RESIDUALS AND LYTES SEE ALSO FULL CLINICAL NUTRITION ASSESSMENT
--- NOTE | 2022-05-04 12:19 | MHC.CM.PN ---
IMM 05/04/22 Patient had a PEG placed yesterday. DP is Home with TF. [facility] is the pts preferred [facility]. The referral has been sent. TF info and OP note have been sent to [facility]. The Liason is providing Enteral feed education with the patients sister Denise, her Primary hospice care transitions coordinator. DP home with [facility] and resumption of [facility]. Patient will transport via BLS, she is bed bound.
--- NOTE | 2022-05-04 13:35 | HO.POSTANES ---
Post Anesthesia Evaluation Post Anesthesia Evaluation Vital Signs: Vital Signs Temp Pulse Resp BP Pulse Ox O2 Del Method O2 Flow Rate 05/04/22 11:17 97.9 F 52 17 138/62 95 Nasal Cannula 3 05/04/22 08:00 98.2 F 96 20 154/71 H 96 Nasal Cannula 3 05/04/22 04:00 96.7 F L 48 L 20 120/56 L 96 Nasal Cannula 3 Anesthesia: Monitored Mental Status: Awake Pain Control: Satisfactory Nausea/Vomiting: None Hydration: Adequate Anesthesia-Related Issues: No Anes. Related Issues
[2022-05-04 16:00] VITALS: BP 149/67; PULSE 57; RESP 17; TEMP 36.7; O2SAT 98
--- NOTE | 2022-05-04 16:33 | MHC.SLORD ---
Addendum entered and electronically signed by Dayana Yu MA, CCC-SHOP SERVICE TECHNICIAN 05/04/22 17:31: D.S. Original Note: Speech Language Pathology Order Status: SHOP SERVICE TECHNICIAN spoke with attending hospitalist regarding recommendation of repeat MBSS. Per request, SHOP SERVICE TECHNICIAN spoke w/ pt's sister who agreed to a follow-up MBSS. Pt's sister reported her goal would be for pt to be fed via PO and PEG. Order placed for MBSS.
[2022-05-04 20:00] VITALS: BP 140/66; PULSE 85; RESP 20; TEMP 36.5; O2SAT 96
[2022-05-04] MEDS: Enoxaparin Sodium 40 MG/0.4 ML SYRINGE SUBCUT (22:01)
[2022-05-04] MEDS: Donepezil HCl 5 MG TABLET PO (22:01)
[2022-05-04] MEDS: levETIRAcetam Oral Soln 500 MG/5 ML 1350 MG PO (22:02)
[2022-05-05] MEDS: cefEPime HCl 2 GM in 0.9 % Sodium Chloride 50 ML IV (01:06)
[2022-05-05 04:00] VITALS: BP 98/51; PULSE 68; RESP 20; TEMP 36.2; O2SAT 91
--- NOTE | 2022-05-05 04:04 | PC.NURSE ---
Earlier during the shift, patients sister/sporting goods salesperson (Denise) questioning why patient was not on Prednisone anymore or resp treatments. I addressed several of Gails concerns and notified Dr Alarcon. ordered prn resp treatments. Treatment given around 0100. Pt's daughter has excessive questions/cpncerns on how to provide care for her sister at home, specifically her tube feedings and care. I reassured her she would have VNA set up and education would be provided. I will pass this along to day nurse. Pt was also incontinent of large amount of urine. Purewick placed. Will continue to monitor.
[2022-05-05] MEDS: levETIRAcetam Oral Soln 500 MG/5 ML 50 MG PO ×2 (05:08→18:14)
[2022-05-05 07:44] VITALS: BP 114/56; PULSE 72; RESP 12; TEMP 36.8
[2022-05-05] MEDS: Chlorhexidine Gluc Oral Rinse 15 ML MOUTHWASH BUCCAL ×2 (10:03→20:17)
[2022-05-05] MEDS: levETIRAcetam Oral Soln 500 MG/5 ML 200 MG PO (10:03)
[2022-05-05] MEDS: Levothyroxine Sodium 88 MCG TABLET PO (10:03)
[2022-05-05] MEDS: polyethylene glycoL 3350 17 GM POWD.PACK PO (10:03)
[2022-05-05] MEDS: lamoTRIgine 25 MG TABLET PO ×2 (10:04→20:16)
[2022-05-05] MEDS: 0.9 % Sodium Chloride Flush 3 ML SYRINGE IVFLUSH ×3 (10:04→20:17)
[2022-05-05 11:11] VITALS: BP 135/67; PULSE 70; RESP 12; TEMP 36.1; O2SAT 93
[2022-05-05 11:57] VITALS: PULSE 82; PULSE 86; RESP 18; O2SAT 92; O2SAT 95
--- NOTE | 2022-05-05 12:27 | MHC.CLN ---
F/U PT RECEIVING TF JEVITY 1.0 AT MAX GOAL RATE 55ML/HR WITH 30ML PROSOURCE Q DAY AND 120ML FREE WATER FLUSHES Q 8 HRS PROVIDES 1459KCALS TOTAL FROM FORMULA AND PROTEIN SHOT (31KCALS/KG BASED ON CMW), 73G TOTAL PROTEIN (1.5G/KG), 1462ML TOTAL WATER FROM FORMULA AND FLUSHES (30ML/KG) MONITOR FOR TOLERANCE, RESIDUALS AND LYTES
[2022-05-05] MEDS: metroNIDAZOLE 500 MG TABLET PO ×2 (14:16→20:16)
--- NOTE | 2022-05-05 14:58 | P.PNIM_ITS ---
Subjective Subjective Date of Service: 05/05/22 Interval History: seen and examined this morning awake, primarily nonverbal at baseline unable to obtain ROS sister reports increasing secretions overnight Physical Exam Vital Signs: Vital Signs: Last Vital Signs Temp 96.9 F 05/05/22 11:11 Pulse 86 05/05/22 11:57 Resp 18 05/05/22 11:57 BP 135/67 05/05/22 11:11 Pulse Ox 95 05/05/22 11:57 O2 Del Method 05/05/22 11:11 O2 Flow Rate 3 05/05/22 11:11 Oxygen Flow Rate 2 04/26/22 18:55 BMI result Body Mass Index 29.2 Const: Other: unable to assess orientation General: alert and awake Nutritional Appearance: average body habitus Resp: Other: b/l rhonchi Effort & Inspection: normal respiratory effort Cardio: Rate: regular rate Heart sounds: S1 normal heart sound present and S2 normal heart sound present GI: Other: gtube in place Inspection: No distended Palpation (GI): Soft to palpation Extrem: General: Yes no pedal edema Objective Data Active Medications Acetaminophen (Acetaminophen Supp 650 Mg Supp.Rect) 650 mg CO Q4H PRN PRN Reason: Fever Last Admin: 05/02/22 21:52 Dose: 650 mg Documented By: ANNEMARIE Acetaminophen (Acetaminophen 325 Mg Tablet) 650 mg PO Q6H PRN PRN Reason: Pain, Mild (Pain Scale 1-3) Last Admin: 05/04/22 10:00 Dose: 650 mg Documented By: KATHRYN Albuterol/Ipratropium (Albuterol/Iprat 2.5/0.5mg 3 Ml Ampul.Neb) 3 ml INHALE RQ4H PRN PRN Reason: Shortness of Breath/Wheezing Cefuroxime Axetil (Cefuroxime Axetil 500 Mg Tablet) 500 mg PO Q12H [facility] Last Admin: 05/05/22 14:16 Dose: 500 mg Documented By: BARB Chlorhexidine Gluconate (Chlorhexidine Gluc Oral Rinse 15 Ml Mouthwash) 15 ml BUCCAL BID [facility] Last Admin: 05/05/22 10:03 Dose: 15 ml Documented By: BARB Donepezil HCl (Donepezil Hcl 5 Mg Tablet) 5 mg PO DAILY@2200 [facility] Last Admin: 05/04/22 22:01 Dose: 5 mg Documented By: ELKE Enoxaparin Sodium (Enoxaparin Sodium 40 Mg/0.4 Ml Syringe) 40 mg SUBCUT Q24H [facility] Last Admin: 05/04/22 22:01 Dose: 40 mg Documented By: ELKE Guaifenesin (Guaifenesin 200 Mg/10 Ml 10 Ml Liquid) 10 ml PO Q6H PRN PRN Reason: Cough Last Admin: 04/29/22 12:10 Dose: 10 ml Documented By: CHACHA Lactic Acid (Ammonium Lactate 12 % Lotion 226 Gm Bottle) 1 appl TOPICAL BID PRN; Protocol PRN Reason: Dry Skin Last Admin: 04/29/22 21:30 Dose: 1 appl Documented By: BRIAN Lamotrigine (Lamotrigine 25 Mg Tablet) 25 mg PO BID [facility] Last Admin: 05/05/22 10:04 Dose: 25 mg Documented By: BARB Levetiracetam (Levetiracetam Oral Soln 500 Mg/5 Ml) 1,350 mg PO BEDTIME [facility] Last Admin: 05/04/22 22:02 Dose: 1,350 mg Documented By: ELKE Levetiracetam (Levetiracetam Oral Soln 500 Mg/5 Ml) 200 mg PO DAILY@0900 [facility] Last Admin: 05/05/22 10:03 Dose: 200 mg Documented By: BARB Levetiracetam (Levetiracetam Oral Soln 500 Mg/5 Ml) 50 mg PO DAILY@0400 [facility] Last Admin: 05/05/22 05:08 Dose: 50 mg Documented By: ELKE Levetiracetam (Levetiracetam Oral Soln 500 Mg/5 Ml) 50 mg PO DAILY PRN PRN Reason: Seizure Activity Levothyroxine Sodium (Levothyroxine Sodium 88 Mcg Tablet) 88 mcg PO DAILY@1030 [facility] Last Admin: 05/05/22 10:03 Dose: 88 mcg Documented By: BARB Metronidazole (Metronidazole 500 Mg Tablet) 500 mg PO Q8H [facility] Last Admin: 05/05/22 14:16 Dose: 500 mg Documented By: BARB Patient Own ( Lacosamide [Vimpat] 10 Mg/Ml Solution) 100 mg PO BEDTIME@2030 [facility] Last Admin: 05/04/22 21:58 Dose: 100 mg Documented By: ELKE Pt Own (Midazolam [ Nayzilam] 5 Mg/Delta (0.1 Ml) Delta,Non- Aerosol) 5 mg NOSTRIL-B DAILY PRN PRN Reason: Seizure Activity Nystatin (Nystatin Cream 15 Gm Tube) 1 appl TOPICAL TID [facility]; Protocol Last Admin: 05/05/22 10:03 Dose: Not Given Documented By: BARB Non-Admin Reason: Patient Refused Omeprazole (Omeprazole 20 Mg/10 Ml Susp.Recon) 20 mg G-TUBE DAILY@0630 [facility] Last Admin: 05/05/22 05:08 Dose: 20 mg Documented By: ELKE Pharmacy Consult (Consult Rx Perform Med Rec) 1 each MISCELLANE ONCE PRN PRN Reason: Consult order Polyethylene Glycol (Polyethylene Glycol 3350 17 Gm Powd.Pack) 17 gm PO DAILY [facility] Last Admin: 05/05/22 10:03 Dose: 17 gm Documented By: BARB Sodium Chloride (0.9 % Sodium Chloride Flush 3 Ml Syringe) 3 ml IVFLUSH QSHIFT [facility] Last Admin: 05/05/22 10:04 Dose: 3 ml Documented By: BARB Labs CBC & Chem 7: 05/04/22 05:40 05/02/22 07:09 Assessment and Plan (1) Aspiration pneumonia: Status: Acute Plan 61-year-old female a past medical history of Down syndrome, dementia,? dysphasia, seizures, history of chronic aspiration PNA, LEONIE on CPAP, full-time caregiver is her sister? as patient requires 24/7 care, nonverbal at baseline admitted for sepsis of unspecified cause and CHF exacerbation Dysphagia MBSS. recommend pureed diet with thin liquids Barium swallow xray rec by pulm - showing aspiration in the trachea and proximal right mainstem bronchus status post G-tube placement, receiving tube feeds plan for repeat MBSS today, to see if pt able to safely take any PO Hypotension. Resolved likely r/t dehydration from decreased po intake improved with fluid Acute hypoxemic respiratory failure secondary to pneumonia UA negative, respiratory pathogen panel negative, nasal MRSA negative Albuterol nebs, guaifenesin as needed Supplemental oxygen, wean as tolerated seen by pulmonology repeat CXR showing new developing RUL consolidation - no wbc, fever. will start po abx Sepsis secondary to community-acquired pneumonia, possible aspiration. Resolved Met criteria with Tachycardia, tachypnea, leukocytosis s/p treatment with cefepime Blood cultures negative to date Mild hypokalemia resolved LEONIE CPAP Hypothyroidism Continue levothyroxine History of seizures Seizure precautions Continue home vimpat, keppra Dementia, unspecified without behavioral disturbances Continue home medications Stage II decubitus ulcer to the sacrum present on arrival, frequent repositioning, barrier cream, nutrition evaluation DVT prophylaxis-Fariba Attending Dr. Rangel DISPO Plan for dc home possibly tomorrow inpatient need:Acute hypoxemic respiratory failure/Sepsis, toxic metabolic encephalopathy- - need IV antibiotics, oxygen support, nebs, suctioning Quality Stroke Does the patient have a stroke diagnosis?: No VTE Prior VTE?: No VTE Risk Level:: Medical - moderate - high VTE Device Contraindication: Treatment Not Indicated VTE Drug Contraindication: N/A - Med Ordered
--- NOTE | 2022-05-05 15:34 | MHC.CM.PN ---
Patient planned for discharge today. Discharge held until tomorrow. Patient is scheduled for a MBS today at 3pm. [facility] care will deliver the formula and supplies tomorrow, once discharge is confirmed. Per Liason the procedure is scheduled to late to ensure that the patient will discharge today.
[2022-05-05 16:00] VITALS: BP 132/60; PULSE 65; RESP 13; TEMP 36.8; O2SAT 92
[2022-05-05] MEDS: Acetaminophen 325 MG TABLET 650 MG PO (16:14)
[2022-05-05] MEDS: Nystatin Cream 15 GM TUBE 1 APPL TOPICAL ×2 (16:14→20:18)
--- NOTE | 2022-05-05 18:40 | MHC.SL.IMP ---
Date of Plan of Treatment: 05/05/22 Onset of Symptoms/Illness: 04/27/22 Date Treatment Started: 04/27/22 Admitting Diagnosis: Metabolic encephalopathy and sepsis of unspecified cause, possibly secondary to aspiration pneumonia Primary Speech & Language Diagnosis: R13.12 Oropharyngeal Phase Dysphagia Reason for Today's Visit: 26556 Modified Barium Swallow Study Pre-evaluation Dietary Consistencies: NPO Pre-evaluation Liquid Consistency: NPO Pre-evaluation Medication Administration: NPO Medical History: Modified Barium Swallow Study Fluoroscopic Evaluation of Swallowing Function CPT Code 64278 Evaluation Year: 2021 Reason for Study: History of aspiration Referring Physician: Karis Gu NP Evaluating Clinician: Dayana Yu MA, CCC-EMPLOYMENT LEGAL ASSISTANT Study Number: 1 Patient Name: Ann Marie Gold Status: Inpatient, Stretcher Age: 61 Gender: Female MEDICAL HISTORY: Medical History Aspiration into airway Aspiration pneumonia Dementia Down syndrome Down syndrome Dysphagia Dysphagia causing pulmonary aspiration with swallowing Epilepsy Hypoxemia MSSA bacteremia MSSA bacteremia LEONIE on CPAP Physical deconditioning Pneumonia Respiratory distress Seizure disorder Toxic metabolic encephalopathy Unspecified skin changes Current (pre-evaluation) Intake/Diet: Route: NPO/Alternate Route, gastrostomy tube Pre-Study Functional Oral Intake Scale (FOIS): 1- No oral intake SUBJECTIVE: Pt is a 61 year old female brought to the ED for evaluation of generalized weakness, altered mental status, productive cough, fevers, and chills x 2 days. Pt was admitted for metabolic encephalopathy and sepsis of unspecified cause, possibly secondary to aspiration pneumonia. Pt was accompanied to this exam by her sister, who is her full-time caregiver. Pt is nonverbal and requires 24/7 care. Pt has history of dementia, Down syndrome, epilepsy, LEONIE, and recurrent aspiration pneumonia. Pt had MBSS on 04/27/22 which showed no evidence of aspiration or penetration with pureed solid, ground solid, thickened liquid, and thin liquid. Pt was subsequently recommended a pureed diet with thin liquids and strict aspiration precautions. Pt had Barium Swallow X-Ray on 04/29/22 which showed aspiration with thin liquid barium. Subsequently pt had chest x-ray done and was downgraded to NPO status. On 05/03/22 pt had PEG-tube placed. -04/29/22 Barium Swallow X-Ray: ?TECHNIQUE: Limited barium swallow was performed. Initially thin barium was administered to the patient in a chair. Lateral imaging of the neck demonstrate no evidence of aspiration. Additional barium was administered and attempts at imaging the lower esophagus with the patient sitting in chair in the lateral and AP projections was attempted but chest could not be well visualized. Patient was transferred to her stretcher. The patient was administered thin liquid barium. Follow-up chest and abdominal x-rays were performed. Fluoroscopy time: 0.3 minutes DAP: 0.18 Gycm2 Images: 3 fluoroscopic images and 4 overhead images FINDINGS: Lateral swallowing images with patient sitting in a chair demonstrated no aspiration. Initial overhead images after the patient drank demonstrated a small amount of oral contrast in the mid thoracic esophagus. There is oral contrast in the stomach and proximal small bowel. This appears unremarkable. On repeat images following oral contrast there is evidence of aspiration with oral contrast in the trachea and proximal right mainstem bronchus. The distal thoracic esophagus is partially opacified with contrast and appears unremarkable. FL/FL barium swallow IMPRESSION: Limited exam. Aspiration in the trachea and proximal right mainstem bronchus.? -04/30/22 Chest X-Ray: ?FINDINGS: The lungs are well-expanded with diffuse bilateral interstitial prominence minimally prominent at 04/26/2022. No consolidation pleural effusion. Heart size and pulmonary vascularity is normal. No gross bony abnormality. XR/XR chest 1V IMPRESSION: Diffuse bilateral interstitial prominence likely interstitial pneumonitis. No consolidation or pleural effusion seen. ? No major change from the last exam 04/26/2022.? -05/05/22 Chest X-Ray: ?FINDINGS: There is coarsening of the bronchovascular markings with mild cephalization of flow and perivascular cuffing consistent with interstitial edema. Suspect early acinar consolidation or groundglass opacity right upper lobe adjacent to minor fissure. No effusion. Heart size upper normal. The hilar and mediastinal contours and bony structures are unremarkable. There is contrast in the colon from recent barium swallow exam. XR/XR chest 1V IMPRESSION: 1. Mild interstitial edema. 2. Subtle early consolidation or groundglass opacity right upper lobe adjacent to minor fissure. 3. No effusion.? Oral Motor Exam Mouth Occlusion: Normal Oral-Facial Teeth Characteristics: Edentulous Tongue Size: Normal Food and Liquid Trials: Oral Impairment: Lip Closure: Did not test Oral Impairment: Tongue Control During Bolus Hold: 1=Escape to lateral buccal cavity/floor of mouth (FOM) Oral Impairment: Bolus Preparation/Mastication: 2=Disorganized chewing/mashing with solid pieces of bolus Oral Impairment: Bolus Transport/Lingual Motion: 3=Repetitive/disorganized tongue motion Oral Impairment: Oral Residue: 2=Residue collection on oral structures Oral Impairment:Initiation of Pharyngeal Swallow: 0=Bolus head at posterior angle of ramus (first hyoid excursion) Pharyngeal Impairment: Soft Palate Elevation: 0=No bolus between soft palate (SP)/pharyngeal wall (PW) Pharyngeal Impairment: Laryngeal Elevation: 1=Partial thyroid cartilage/arytenoids to epiglottic petiole movement Pharyngeal Impairment: Anterior Hyoid Excursion: 1=Partial anterior movement Pharyngeal Impairment: Epiglottic Movement: 1=Partial inversion Pharyngeal Impairment: Laryngeal Vestibular Closure:: 1=Incomplete: narrow column air/contrast in laryngeal vestibule Pharyngeal Impairment: Pharyngeal Stripping Wave: 1=Present: diminished Pharyngeal Impairment: Pharyngeal Contraction: Did not test Pharyngeal Impairment: Pharyngoesophageal Segment Openin=Complete distension and complete duration: no obstruction of flow Pharyngeal Impairment: Tongue Base (TB) Retraction: 2=Narrow column of contrast/air between TB and posterior PW Pharyngeal Impairment: Pharyngeal Residue: 0=Complete pharyngeal clearance Pharyngeal Impairment: Esophageal Clearance Upright Position: Did not test Impressions and Recommendations OBJECTIVE: Time-out: performed at 3:15 Evaluation Start: 3:00; Stop: 3:02 Patient Positioning: Seated 70-90 degrees Viewing Planes: 7 Contrast: MBSImP? Standardized Protocol using commercially prepared, standardized Barium viscosities, including: Varibar? THIN HONEY (40% w/v, <800-1800 cps) MBSImP ID: [id number] [facility]: Lip closure for intraoral bolus containment could not be assessed due to logistical reasons not related to physiologic impairment. Tongue control during bolus hold allowed bolus escape to the lateral buccal cavity/floor of mouth. Bolus preparation and mastication demonstrated disorganized chewing/mashing with solid pieces of the bolus unchewed. Bolus transport/lingual motion was with repetitive/disorganized motion of the tongue. Oral residue was a collection on oral structures. Initiation of the pharyngeal swallow occurred as the bolus head reached the posterior angle of the mandibular ramus. Soft palate elevation resulted in no bolus between the soft palate and the pharyngeal wall. Laryngeal elevation was decreased, with partial superior movement of the thyroid cartilage/partial approximation of the arytenoids to the epiglottic petiole. Anterior hyoid excursion demonstrated partial anterior movement. Epiglottic movement resulted in partial inversion. Laryngeal vestibular closure was incomplete, with a narrow column of air/contrast noted within the laryngeal vestibule at the height of the swallow. Pharyngeal stripping wave was present, but diminished. Pharyngeal contraction could not be determined due to logistical reasons not related to physiologic impairment. Pharyngoesophageal segment opening was completely distended for complete duration with no obstruction of bolus flow. Tongue base retraction allowed a narrow column of contrast or air between the retracted tongue base and the posterior pharyngeal wall. Pharyngeal residue was not present. There was complete pharyngeal clearance. Esophageal clearance in the upright position could not be assessed due to logistical reasons not related to physiologic impairment. Oral Impairment Score: 8 (absence of score, component 1) Pharyngeal Impairment Score: 7 (absence of score, component 13) Esophageal Impairment Score: --- (absence of score, component 17) Laryngeal Penetration and Aspiration: Both Penetration and Aspiration were observed in today's study. Honey-thick Contrast entered the airway, remained above the vocal folds, and was ejected from the airway. Honey-thick Contrast entered the airway, passed below the vocal folds, and no effort was made to eject. ASSESSMENT: This exam was conducted by a multidisciplinary team, which included a speech pathologist, radiologist, and radiology assistant. Pt was seated upright in a chair for lateral view only. Pt was fed with 1:1 assistance during this exam. Pt consumed the following liquid and solid consistencies: pureed solid (mixture applesauce with barium paste), ground solid (mixture chicken salad with barium paste), honey thick liquid barium by teaspoon. Oral phase was slow and disorganized. At times, pt held the bolus in her mouth or demonstrated tongue rocking movements. Other times, lingual motion for the transport of bolus was brisk and timely. Mastication was mildly prolonged and disorganized, with mild oral residue which subsequently cleared with swallow. Pharyngeal swallow trigger was timely, initiated as bolus head reached the posterior angle of the ramus. There was no nasopharyngeal reflux. Incomplete laryngeal elevation with incomplete anterior hyoid excursion and partial epiglottic inversion. Incomplete laryngeal vestibular closure. Pt first trialed bites of pureed solid by teaspoon. With this consistency, pt demonstrated complete oral and pharyngeal clearance with no evidenced penetration or aspiration. With bites of ground solid, there was mild oral residue, which cleared with subsequent swallow. There was no pharyngeal residue. No evidence of penetration or aspiration. Next pt took sips of honey thick liquid by teaspoon. There as mild coating of residue on the tongue, but complete pharyngeal clearance. Evidence of flash penetration on first two trials of honey thick consistency. With third trial, there was brisa aspiration during the swallow. Contrast entered the airway and passed below the vocal folds. Pt produced a delayed cough. No obstruction of flow through the pharyngoesophageal segment opening. Liquid Intake Recommendation: NPO Dietary Recommendations: NPO;Pleasure/Comfort Feeds NDD1 Medication Administration: NPO Please contact the pharmacy regarding appropriate crushable or liquid drug formulations that are available whenever modified delivery is recommended. Recommendation for Speech Therapy: Inpatient Speech Therapy, Speech Therapy through [facility], Modified Barium Swallow Study - Outpatient PLAN: Intake Recommendations: Route: NPO/Alternate Route Post-Study Functional Oral Intake Scale (FOIS): 2- dependent with minimal/inconsistent oral intake (pureed only via tspn) Recommend continue w/ NPO status at this time, nutrition via alternate means. Pt w/ PEG-tube which was placed 05/03/22. Supplemental PO to be pureed consistency only, given by 1/2 teaspoon for pleasure/comfort feeding. Pt to be in upright 90 degree position during feeding and for at least 30 minutes afterwards. Monitor closely. If pt displays any overt s/s of aspiration, discontinue feeding. Ensure thorough oral care routine on a daily basis, and before and after any comfort feeds. Elevate head of bed at least 30 degrees to reduce risk of microaspiration. Recommend continue speech therapy for the treatment of dysphagia during hospitalization and at the next level of care ([facility]) w/ repeat MBSS. Suggested Referrals: The patient might benefit from a referral to: Gastroenterology, Nutrition Services Indication for Referral: PEG-tube Therapy Recommendations: Therapy will be continued Frequency/Duration: Date Range for Service Requested: Timeline to reassess: 3 months Clinician - Supplemental, Miscellaneous Communication: It is important to note MBSS objective studies are snapshots in time and Patient function might vary with factors such as time of day or concomitant medical conditions. For this reason, the final treatment plan for this patient should rest with their medical care team. Additional recommendations should be considered with the totality of the Patient in mind. Thank for the opportunity to participate in the care of this patient. If you have any questions about the content of this report, please contact the [facility] at [facility]. Education: Education regarding findings from today's study and plans for therapy were provided to Family/caregiver only through Verbal Instruction. Understanding was expressed by the Family/caregiver only. Inventory Auditor Clinician/Clinical Fellow: No Supervisory Statement: N/A Speech Language Pathologist: Dayana Yu M.A., CCC-EMPLOYMENT LEGAL ASSISTANT
[2022-05-05 19:45] VITALS: BP 146/75; PULSE 110; RESP 20; TEMP 36.9; O2SAT 91
[2022-05-05] MEDS: levETIRAcetam Oral Soln 500 MG/5 ML 1350 MG PO (20:16)
[2022-05-05] MEDS: Donepezil HCl 5 MG TABLET PO (20:16)
[2022-05-05] MEDS: Enoxaparin Sodium 40 MG/0.4 ML SYRINGE SUBCUT (20:17)
[2022-05-06] MEDS: levETIRAcetam Oral Soln 500 MG/5 ML 50 MG PO (05:26)
[2022-05-06] MEDS: metroNIDAZOLE 500 MG TABLET PO ×2 (05:27→14:18)
[2022-05-06 07:32] VITALS: BP 134/62; PULSE 84; RESP 20; TEMP 36.4; O2SAT 93
[2022-05-06] MEDS: lamoTRIgine 25 MG TABLET PO (09:19)
[2022-05-06] MEDS: levETIRAcetam Oral Soln 500 MG/5 ML 200 MG PO (09:19)
[2022-05-06] MEDS: Levothyroxine Sodium 88 MCG TABLET PO (09:19)
[2022-05-06] MEDS: Chlorhexidine Gluc Oral Rinse 15 ML MOUTHWASH BUCCAL (09:19)
[2022-05-06] MEDS: polyethylene glycoL 3350 17 GM POWD.PACK PO (09:20)
[2022-05-06 11:01] VITALS: BP 132/71; PULSE 89; RESP 20; TEMP 36.2; O2SAT 96
--- NOTE | 2022-05-06 11:24 | PM.DS ---
DS: Providers Provider Date of Service: 05/06/22 Date of admission: 04/26/22 21:39 Date of discharge: 05/06/22 Primary care physician: Scot Cunningham MD Consults: 04/26/22 21:51 Consult to Cardiology Routine Consulting Provider: Rachid Egan Reason for consultation: CHF exacerbation 04/27/22 11:29 Consult to Infectious Diseases Routine Consulting Provider: Emelyn Sharpe Reason for consultation: sepsis/pneumonia Has provider been notified: No 04/27/22 11:45 Consult to Critical Care Routine Consulting Provider: Garth Tian Reason for consultation: level of care Has provider been notified: No 04/27/22 14:52 Consult to Pulmonology Routine Consulting Provider: Laci Gu Reason for consultation: acute hypoxemic respiratory failure sec to pneumonia?aspirational Has provider been notified: No 04/29/22 12:55 Consult to Gastroenterology Routine Consulting Provider: Michael Sevilla Reason for consultation: barium swallow abnormal ?obstructio Has provider been notified: No 05/01/22 12:41 Consult to Gastroenterology Routine Consulting Provider: Michael Sevilla Reason for consultation: dysphagia Has provider been notified: No Attending physician on discharge: Kirk Rangel Discharging clinician: Giselle Siegel DS: Diagnosis Discharge Diagnosis (1) Aspiration pneumonia: Status: Acute (2) Acute hypoxemic respiratory failure: Status: Acute (3) Sepsis: Status: Acute DS: Summary Hospital Course Hospital Course: From H&P on day of admission 61-year-old female a past medical history of Down syndrome, dementia,? dysphasia, seizures, history of chronic aspiration PNA, LEONIE on CPAP, HFpEF, full-time caregiver is her sister? as patient requires 24/7 care, nonverbal at baseline presented to ED this morning via EMS with her sister with generalized weakness, confusion from baseline, productive cough, fevers, chills for the past 2 days.? Her sister states that at baseline she is nonverbal with the exception of 3-4 words occasionally but has had increased weakness over the past few days with fever of 102. Her sister states that she has recurrent respiratory infections treated outpatient by Dr. Whitlock inpulmonology, typically with doxycycline and levalbuterol nebs.? She states she did give her a dose of doxycycline around 14:00 and then reports patient had an episode of diarrhea but this was the 1st occurrence in recent history.? She was recently admitted to ICU step-down to Medicine for acute hypoxemic respiratory failure with hypotension requiring vasopressors though no intubation and visit was complicated by aspiration pneumonia and MSSA bacteremia.? She has been declining since though has had VNA and occupational therapy in the home.? She also has a decubitus ulcer on the sacrum it being monitored by VNA.? On arrival, patient febrile to 103.1, tachycardic to 116, tachypneic to 22 and noted to be hypoxic by EMS started on 2 L via nasal cannula currently satting at 98%.? No hypotension.? WBC 18.3.? Lactic acid 1.5.? Renal function and electrolyte levels normal.? Troponin negative.? BNP pending.? ESR and CRP pending.? UA pending.? CXR showed diffuse interstitial prominence with peribronchial cuffing and hazy opacities favoring edema.? Subsequent chest CT showing interstitial edema with some alveolar airspace disease in the lung bases consistent with CHF though no pleural effusions.? The dense consolidation previously seen at the right lung base in 02/25/2022 has resolved.? Incidental finding of aberrant right subclavian artery and mild degenerative changes in the spine.? EKG showed sinus tachycardia, rate [address] elevations or inversions, no significant change compared to prior EKG.? She did have echo performed during last admission on 03/04/2022 showing normal LV size, thickness, systolic function, and wall motion with EF estimated at 55-60% with diastolic dysfunction noted and elevated filling pressures.? Patient to be admitted for sepsis of unclear etiology at this time. Given 2L IVF in ED as well as 1g IV ceftriaxone and 650mg acetaminophen. Hospital course by problem: Dysphagia. Barium swallow xray rec by pulm - showing aspiration in the trachea and proximal right mainstem bronchus. status post G-tube placement 05/03, currently tolerating tub feeding diet. Will be discharged home with VNA to assist with tube feeding diet. After repeat MBSS, speech Recommend continue w/ NPO status at this time, nutrition via alternate means. Pt w/ PEG-tube which was placed 05/03/22. Supplemental PO to be pureed consistency only, given by 1/2 teaspoon for pleasure/comfort feeding. Pt to be in upright 90 degree position during feeding and for at least 30 minutes afterwards. Monitor closely. If pt displays any overt s/s of aspiration, discontinue feeding. Ensure thorough oral care routine on a daily basis, and before and after any comfort feeds. Elevate head of bed at least 30 degrees to reduce risk of microaspiration. Recommend continue speech therapy for the treatment of dysphagia during hospitalization and at the next level of care (VNA) w/ repeat MBSS. Acute hypoxemic respiratory failure secondary to pneumonia. UA negative, respiratory pathogen panel negative, nasal MRSA negative. She was able to be weaned off of supplemental oxygen and on day of discharge she was saturating 96% on room air. She was seen in consultation by pulmonology during her hospitalization. repeat CXR 05/05, showing new developing RUL consolidation - no wbc, fever. Will treat with course of oral antibiotics. She is currently on room air. She will continue to have risk of aspiration. Sister is primary clinical care manager and feels that she would like to get her back into her regular routine at home. Sepsis secondary to community-acquired pneumonia, aspiration. Met criteria with Tachycardia, tachypnea, leukocytosis. All have resolved. She was initially treated with IV cefepime and completed course of antibiotics. Blood cultures negative to date. Stage II decubitus ulcer to the sacrum present on arrival,recommend frequent repositioning, barrier cream Time Spent with Patient Time attestation: Total time spent providing and/or coordinating discharge services: Discharge coordination time: Greater than 30 minutes Quality: Safe Use of Opioids Does Pt have an Active Cancer Diagnosis on the Problem List?: No Quality: Stroke Does the patient have a stroke diagnosis?: No Physical Exam Vital Signs: Vital Signs: Last Vital Signs Temp 97.1 F 05/06/22 11:01 Pulse 89 05/06/22 11:01 Resp 20 05/06/22 11:01 BP 132/71 05/06/22 11:01 Pulse Ox 96 05/06/22 11:01 O2 Del Method 05/06/22 11:01 O2 Flow Rate 3 05/05/22 11:11 Oxygen Flow Rate 2 04/26/22 18:55 BMI result Body Mass Index 29.2 Const: Other: unable to assess orientation General: alert and awake Nutritional Appearance: average body habitus Resp: Other: b/l rhonchi Effort & Inspection: normal respiratory effort Cardio: Rate: regular rate Heart sounds: S1 normal heart sound present and S2 normal heart sound present GI: Other: gtube in place Inspection: No distended Palpation (GI): Soft to palpation Neuro: Other: unable to assess orientation Extrem: Other: moving all extremities General: Yes no pedal edema DS: Data Data Completed and Pending Completed studies during hospitalization [Text1]: Procedures Assistance with Respiratory Ventilation, Less than 24 Consecutive Hours, Continuous Positive Airway Pressure (02/26/22) Insertion of Infusion Device into Right Subclavian Vein, Percutaneous Approach (02/26/22) Introduction of Remdesivir Anti-infective into Peripheral Vein, Percutaneous Approach, [employer] (02/26/22) Introduction of Vasopressor into Peripheral Vein, Percutaneous Approach (02/26/22) Ultrasonography of Right Subclavian Vein, Guidance (02/26/22) Discharge Plan Discharge Anticipated Discharge Date/Time: 05/06/22 11:23 Patient Disposition: Home Health Service Discharge Diagnosis: Aspiration pneumonia dysphagia gastritis sepsis Referrals: [facility] [Other] - 1 Week [facility] ESPINO [Outside] - 1 Week Scot Cunningham MD [Primary Care Provider] - 1 Week Discharge Medications: New cefuroxime axetil 500 mg Tablet 500 mg PO Q12H 4 Days Qty: 8 0RF metronidazole 500 mg Tablet 500 mg PO Q8H 4 Days Qty: 12 0RF Prilosec 10 mg susp,delayed release for recon 20 mg PO DAILY Qty: 30 0RF Continued levalbuterol HCl 1.25 mg/3 mL solution for nebulization 1.25 mg inhalation Q8H Qty: 810 1RF lamotrigine 25 mg tablet, chewable dispersible 25 mg PO BID Nayzilam 5 mg/spray (0.1 mL) spray,non-aerosol 5 mg intranasal DAILY PRN (Reason: Seizure Activity) acetaminophen [Tylenol] 325 mg Tablet 650 mg PO BEDTIME levetiracetam 100 mg/mL solution 50 mg PO DAILY@0400 levetiracetam 100 mg/mL solution 50 mg PO DAILY PRN (Reason: Seizure Activity) polyethylene glycol 3350 [Miralax] 17 gram Powder In Packet 17 g PO DAILY nystatin 100,000 unit/gram Cream 1 appl TOPICAL TID levetiracetam [Keppra] 100 mg/mL Solution 200 mg DAILY@0900 Rx Instructions: Give in morning levetiracetam [Keppra] 100 mg/mL Solution 1,350 mg PO BEDTIME@2029 lacosamide [Vimpat] 10 mg/mL Solution 100 mg PO BEDTIME@2029 Lactobacillus acidophilus 0.5 mg (100 million cell) tablet 3 tab PO DAILY levothyroxine 88 mcg tablet 88 mcg PO DAILY@1030 donepezil 5 mg tablet,disintegrating 5 mg PO DAILY@2200 ipratropium bromide 21 mcg (0.03 %) spray,non-aerosol 2 spray intranasal BEDTIME Discontinued omeprazole magnesium 2.5 mg Susp,Delayed Release For Recon 2.5 mg PO DAILY Discharge Orders: Discharge Order (Routine); Ordered 05/06/22 Ordered By: Giselle Siegel Activity on Discharge: As tolerated Stand Alone Forms: Patient Portal Discharge page Care Plan Goals: see below Health Concerns: respiratory failure with hypoxia - resolved sepsis secondary to aspiration pneumonia dysphagia - gtube placed 05/03 Stage II decub ulcer to sacrum - present on admission Gastritis Plan of Treatment: For dysphagia - continue Tube feeding diet All meds should be given through gtube Recommend Nothing by mouth. Pureed diet for pleasure feeds by 1/2 teaspoon with strict aspiration precautions and close monitoring. Will be at risk for ongoing aspiration For aspiration pneumonia - complete course of antibiotics Decubitus ulcer -Frequent position changes and wound care Call to schedule follow up appointment with PCP Gastritis - prilosec recommended by GI Assessment: see discharge summary Discharge Date/Time: 05/06/22 17:03
--- NOTE | 2022-05-06 11:34 | W.MHC.F2F ---
Service Date Service Date: 05/06/22 Encounter Date of encounter: 05/06/22 Reasons for Services Signs and symptoms assessed: Needs nursing home for new gtube/tube feedings/ medication administration via gtube Reason for speech therapy: swallowing impairment Overseeing Care: Scot Cunningham Homebound: Leaving the home is medically contraindicated at this time without the asist of a device and/or another person due th the listed conditions above and below. Reason homebound: weakness related to hospital stay Certification: Based on the above findings, I certify that this patient is confined to the home and needs intermittent nursing home care, physical therapy and/or speech therapy, or continues to need occupational therapy. The patient is under my care, and I have initiated the establishment of the plan of care. The patient will be followed by a physician who will periodically review the plan of care.
--- NOTE | 2022-05-06 13:36 | MHC.CLN ---
F/U PT TO D/C HOME TODAY SPOKE WITH CM TO COORDINATE D/C SUPPLIED CM WITH 1 CASE JEVITY 1.0 FOR PT'S D/C [facility] IS UNABLE TO OBTAIN FORMULA
--- NOTE | 2022-05-06 13:36 | MHC.CM.PN ---
IMM 05/04/22 Patient discharge today to home. She will receive home services from [facility]. [facility] is providing Supplies for Enteral feeding. Transport is booked for 3:30pm picker machine operator. We have provided formula for this weekend. [facility] will deliver a months formula Monday. [facility] will start services today. They have been notified of dc time as well as delivery time [facility] supplies.
[2022-05-06 15:14] VITALS: BP 155/68; PULSE 84; RESP 17; TEMP 37; O2SAT 92
[2022-05-06 20:49] LABS: Legionella Ag Urine Not Detected (Not Detected)
== END 2022-05-06 17:03 | disposition home health service (06) | DRG 871 ==
LOC: HO.ED 20:06 → HO.EDOVER 21:56 → HO.IMC 22:27
PROVIDERS: Internal Medicine; Internal Medicine Gastroenterology; Nurse Practitioner Acute Care; Physician Assistant; Admitting Provider Physician Assistant; Emergency Provider Emergency Medicine; PCP Family Medicine; Visit Provider Physician Assistant Medical
PROC: 0DH63UZ Insertion of Feeding Device into Stomach, Percutaneous Approach (ICD-10-PCS; CPT 43246; principal; 2022-05-03 12:50)
DX: A41.9 Sepsis, unspecified organism (principal); G92.8 Other toxic encephalopathy; I50.33 Acute on chronic diastolic (congestive) heart failure; J96.01 Acute respiratory failure with hypoxia; J69.0 Pneumonitis due to inhalation of food and vomit; G40.909 Epilepsy, unspecified, not intractable, without status epilepticus; L89.152 Pressure ulcer of sacral region, stage 2; I95.9 Hypotension, unspecified; Q90.9 Down syndrome, unspecified; E03.9 Hypothyroidism, unspecified; G47.33 Obstructive sleep apnea (adult) (pediatric); E87.6 Hypokalemia; R13.12 Dysphagia, oropharyngeal phase; K29.70 Gastritis, unspecified, without bleeding; E86.0 Dehydration; L89.322 Pressure ulcer of left buttock, stage 2; L89.312 Pressure ulcer of right buttock, stage 2; Z20.822 Contact with and (suspected) exposure to COVID-19; Z88.0 Allergy status to penicillin; Z88.1 Allergy status to other antibiotic agents; Z88.2 Allergy status to sulfonamides; Z88.5 Allergy status to narcotic agent; Z79.890 Hormone replacement therapy; Z79.899 Other long term (current) drug therapy
CPT/HCPCS: 0241U; 36415; 71045; 71250; 74220; 74230; 80048; 80053; 80177; 80202; 81003; 82565; 82947; 83605; 83735; 83880; 84484; 85025; 85027; 85610; 85652; 86140; 87040; 87449; 87493; 87633; 87635; 87640; 87641; 87899; 92526; 92611; 93005; 94640; 99285; C1758; J0692; J1650; J1940; J1953; J2920; J3370

== ENCOUNTER 2022-05-13 14:11 | Outpatient (REF) | payer OTHER, SELFPAY ==
[2022-05-13 17:39] LABS: Anion Gap 12 (12-20); Carbon Dioxide 27 mmol/L (22-29); Chloride 106 mmol/L (96-108); Potassium 5.4 mmol/L (3.3-5.1); Sodium 140 mmol/L (135-145)
== END 2022-05-13 14:12 | disposition home or self-care (01) ==
LOC: HO.HVNA 14:11
PROVIDERS: PCP Family Medicine; Visit Provider Family Medicine
DX: J18.9 Pneumonia, unspecified organism (principal); Z97.8 Presence of other specified devices
CPT/HCPCS: 80051

== ENCOUNTER 2022-06-08 17:31 | Outpatient (REF) | payer OTHER, SELFPAY ==
[2022-06-08 17:36] LABS: MANUAL DIFF FLAG NO
[2022-06-08 18:06] LABS: Basophils Absolute Auto 0.1 X10*3/uL (0.0-0.2); Basophils Percent Auto 1.9 % (0-2); Eosinophils Absolute Auto 0.1 X10*3/uL (0.0-0.4); Eosinophils Percent Auto 2.9 % (0-4); Hematocrit 39.8 % (37.0-47.0); Hemoglobin 12.6 g/dl (12.0-16.0); Imm Gran Abs Auto 0.03 X10*3/uL (0.00-0.03); Imm Gran Pct Auto 0.7 % (0.0-0.4); Lymphocytes Absolute Auto 1.2 X10*3/uL (1.2-4.9); Lymphocytes Percent Auto 27.8 % (20-40); Mean Corpuscular HGB Conc 31.7 g/dl (31.0-35.0); Mean Corpuscular Volume 104.2 fL (80.0-98.0); Mean Platelet Volume 11.2 fL (9.4-12.3); Monocytes Absolute Auto 0.6 X10*3/uL (0.1-1.2); Neutrophils Absolute Auto 2.1 x10*3/uL (2.0-8.3); Neutrophils Percent Auto 51.7 % (45-73); Platelet Count 292 X10*3/uL (160-400); Red Blood Count 3.82 X10*6/uL (4.20-5.50); Red Cell Distribution Width 14.7 % (11.0-16.0); White Blood Count 4.1 X10*3/uL (4.8-10.8)
[2022-06-08 18:48] LABS: Alanine Aminotransferase 33 U/L (0-31); Albumin Level 3.6 g/dL (3.5-5.0); Alkaline Phosphatase 126 U/L (39-117); Anion Gap 10 (12-20); Aspartate Amino Transferase 27 U/L (5-31); Bilirubin Direct < 0.2 mg/dL (0.0-0.5); Bilirubin Total 0.3 mg/dL (0.0-1.0); Blood Urea Nitrogen 20 mg/dL (9-16); Carbon Dioxide 31 mmol/L (22-29); Chloride 103 mmol/L (96-108); Estimated Glomerular Filt Rate > 60; Glucose Random 72 mg/dL (60-115); Potassium 4.7 mmol/L (3.3-5.1); Sodium 139 mmol/L (135-145); Total Protein 6.6 g/dL (6.5-8.0)
[2022-06-08 19:00] LABS: Free T4 (Free Thyroxine) 1.24 ng/dL (0.71-1.85); Thyroid Stimulating Hormone 2.73 uIU/mL (0.32-4.0)
[2022-06-12 16:13] LABS: Levetiracetam Keppra 32.4 mcg/mL (6.0-46.0)
== END 2022-06-08 17:32 | disposition home or self-care (01) ==
LOC: HO.HVNA 17:31
PROVIDERS: Visit Provider Internal Medicine Endocrinology, Diabetes & Metabolism
DX: R53.83 Other fatigue (principal); R52 Pain, unspecified; Z79.899 Other long term (current) drug therapy
CPT/HCPCS: 80048; 80076; 80177; 80235; 84439; 84443; 85025

== ENCOUNTER → 2022-09-21 16:04 | Outpatient (BNVA) | payer OTHER, SELFPAY | PROVIDERS: PCP Nurse Practitioner Family; Visit Provider Internal Medicine | DX: Q90.9 Down syndrome, unspecified (principal); G40.909 Epilepsy, unspecified, not intractable, without status epilepticus; J40 Bronchitis, not specified as acute or chronic; G47.33 Obstructive sleep apnea (adult) (pediatric); Z43.1 Encounter for attention to gastrostomy; Z99.89 Dependence on other enabling machines and devices | CPT/HCPCS: 99212 ==

== ENCOUNTER 2023-01-02 13:51 | Outpatient (AMB) | payer OTHER, SELFPAY ==
[2023-01-02 13:59] VITALS: BP 118/72; PULSE 66; O2SAT 95
--- NOTE | 2023-01-02 13:59 | A.OFFPC_ITS ---
Vital Signs 01/02/23 13:59 Height 4 ft 10 in BP 118/72 Blood Pressure Location Rt brachial Position Sitting Pulse 66 Pulse Source Pulse Oximeter Pulse Oximetry (%) 95 Oxygen Delivery Method Room Air Intake Visit Reasons: 3mth f/u Medications Intake Note: Patient here for a 3 month follow up medications, hemorrhoids, ? pink eye, b fran on lip, concerns from G-Tube, prescription for Nystatin powder request, lite hydrocellular foam dressing 4x4 request Cork Grinder Required: No Accompanied by: Sister Allergies fentanyl [FENTANYL] Allergy (Intermediate, Verified 01/02/23 14:04) UNKNOWN codeine [CODEINE] Allergy (Unknown, Verified 01/02/23 14:04) UNKNOWN lorazepam [From ATIVAN] Allergy (Unknown, Verified 01/02/23 14:04) UNKNOWN oxcarbazepine [OXCARBAZEPINE] Allergy (Unknown, Verified 01/02/23 14:04) UNKNOWN penicillin V Allergy (Unknown, Verified 01/02/23 14:04) Unknown Penicillins [PENICILLINS] Allergy (Unknown, Verified 01/02/23 14:04) DIFFICULTY BREATHING Sulfa (Sulfonamide Antibiotics) [SULFA (SULFONAMIDE ANTIBIOTICS)] Allergy (Unknown, Verified 01/02/23 14:04) DIFFICULTY BREATHING levofloxacin [From LEVAQUIN] Adverse Reaction (Intermediate, Verified 01/02/23 14:04) hallucinations doxycycline Adverse Reaction (Mild, Verified 01/02/23 14:04) Diarrhea Tobacco use date assessed: 08/09/22 Dental Screening Dental Screen Date: 01/02/23 Did you have a dental visit in the last 12 months?: No Did you have a dental problem in the last 6 months where you did not have access to dental care?: No Was dental information given to patient?: Patient declined HPI HPI Comments History of Present Illness Details 62-year-old female past medical history significant for Down syndrome, dysphagia, aspiration pneumonia, seizure disorder and obstructive sleep apnea.Patient presents today with sister who is her primary mechanical developer prover. Patient states has g-tube, with tube feedings 24 hours a day.sister does nightly dressing changes around the g-tube.Patient able to take 1/2 teaspoon of pureed foods. Review of notes patient currently following with pulmonology and uses her CPAP for 10-12 hours a night. Patient wheelchair and bedbound. Patient has sit to stand, can stand for 21min with PT. Sister gets her out of bed with nora lift and has a UNDERCAR SPECIALIST assist her get her washed up and dressed daily. Patient sister states resolved sore on bottom from previous hospital admission. Advised to use silvadene cream/ barrier cream ass needed and follow up if she redevelops new or worsening sores. Tube feeds: 88ml an hour, with 16 oz of water daily. UNDERCAR SPECIALIST:2hours day 5 days a week to get her up and dressed, cleaned 5 days a week.? Patient currently follows with Dr. Robb Neurology for seizure disorder, Patient sisters reports last seizure in November Patient was started on memantine in addition previously prescribed donzepil, Keppra and Vimpat. ? Patient sister reports [place] [facility] services got canceled, sister requesting services for G-tube maintenance and tip changes. Order entered, reports G-tube tip needs to be changed every 6-8 weeks. Sister reports bilateral eye redness and yellow green crust in the am/ that has spread to right eye, refill sent on tobramycin. Patient sister reports sore to left lower lip from patient chewing on her CPAP mask x1 week, Patient advised to apply pertroleum jelly and if not improvement call office. [facility] Medical History (Updated 01/03/23 @ 07:28 by ENRIQUE Brown) Aspiration into airway Dementia Diastolic heart failure Down syndrome Dysphagia Dysphagia causing pulmonary aspiration with swallowing Epilepsy G tube feedings Hypoxemia MSSA bacteremia LEONIE on CPAP Physical deconditioning Pneumonia Respiratory distress Seizure disorder Toxic metabolic encephalopathy Tracheobronchitis Unspecified skin changes Surgical History History of back surgery Social History Household Members: Family Household Members Other:: sister Housing: House Do you presently have visiting nurse or other home services: Yes Patient Tobacco Use Status: Never used Tobacco service: No Current occupational status: disabled Cognitive needs: No Hearing needs: No Vision needs: No Questionnaire PHQ-9 Over the last 2 weeks, how often have you been bothered by any of the following problems? 1. Little interest or pleasure in doing things: not at all 2. Feeling down, depressed, or hopeless: not at all 3. Trouble falling or staying asleep, or sleeping too much: not at all 4. Feeling tired or having little energy: not at all 5. Poor appetite or overeating: not at all 6. Feeling bad about yourself - or that you are a failure or have let yourself or your family down: not at all 7. Trouble concentrating on things, such as reading the newspaper or watching television: not at all 8. Moving or speaking so slowly that other people could have noticed. Or the opposite - being so fidgety or restless that you have been moving around a lot more than usual: not at all 9. Thoughts that you would be better off or of hurting yourself in some way: not at all Total score: 0 Depression Screening Interpretation: Negative Source: Developed by Drs. Carlo Donaldson, Danielle Wallace, Eber Lindquist and colleagues, with an educational danna from [employer]. Thrive Questionnaire Date Thrive assessed: 08/09/22 ANIYAH-7 AMB Questionnaire ANIYAH-7 Date ANIYAH - 7 assessed: 08/09/22 Source: Developed by Drs. Carlo Donaldson, Danielle Wallace, Eber Lindquist and colleagues, with an educational danna from [employer]. Review of Systems Const Details: Bilateral eye redness and sore to left lower lip reported by sister. Unobtainable due to mental condition Physical exam (Primary Care) Vital Signs: Last Vital Signs Pulse 66 01/02/23 13:59 BP 118/72 01/02/23 13:59 Pulse Ox 95 01/02/23 13:59 Oxygen Delivery Method Room Air 01/02/23 13:59 Tobacco/Smoking Status: Tobacco use Status Tobacco use date assessed 08/09/22 01/02/23 14:02 Patient Tobacco Use Status Never used Tobacco 01/02/23 14:02 PHQ-9: PHQ-9 Score PHQ-9: Total score 0 01/03/23 07:16 Depression Screening Interpretation: Negative Thrive Assessment: Date of Thrive Assessment Date Thrive assessed 08/09/22 01/02/23 14:02 Const General: cooperative and no acute distress Orientation/consciousness: patient oriented x3 HENMT Head: Yes normocephalic and Yes atraumatic Face images: 1. scab to left lower lip no vesicles noted or surrounding erythema. Eyes Conjunctivae: conjunctival abnormal bilateral conjunctival injection Chest Chest palpation & inspection: normal inspection of the chest Resp Effort & Inspection: normal respiratory effort Auscultation: clear to auscultation bilaterally, no crackles, no rhonchi and no wheezes Cardio Rate: regular rate Rhythm: regular rhythm Heart sounds: S1 normal heart sound present and S2 normal heart sound present GI Inspection: Yes normal to inspection Neuro General: patient oriented x3 Extrem General: No edema Assessment and Plan Assessment & Plan (1) LEONIE on CPAP: Comment: This patient has long-standing history of obstructive sleep apnea and the sister puts on the CPAP every night, so that she can sleep well. Code(s): G47.33 - Obstructive sleep apnea (adult) (pediatric); Z99.89 - Dependence on other enabling machines and devices Plan: Continue to use CPAP for greater than 4 hours a night with good effect. (2) Epilepsy: Comment: Controlled with meds, follows up with Neurology. Code(s): G40.909 - Epilepsy, unspecified, not intractable, without status epilepticus Plan: Continue on current medications and Cotninue to follow with Dr. Robb. (3) Down syndrome: Comment: NEEDS FULL CARE 26/12 OLDER SISTER PROVIDES BIT BENDER CARE , AN EXCELLENT WORK, AND I DID COMMEND THE SISTER FOR PROVIDING EXCELLENT CARE. Code(s): Q90.9 - Down syndrome, unspecified (4) Gastrointestinal tube present: Code(s): Z93.1 - Gastrostomy status Plan: Referral placed ti establish care for G-tube and order placed for [facility] for G- tube maintenance for g-tube tip changes every 6-8weeks. (5) Conjunctivitis: Code(s): H10.9 - Unspecified conjunctivitis Plan: Tobramycin drops prescribed. Plan Follow up in 3 months. Orders: Referrals Gastroenterology Referral Z93.1 - Gastrostomy status [facility] Referral Z93.1 - Gastrostomy status Medications: Refilled tobramycin 0.3% 2 drps ophthalmic (eye) Q4H 5 mL 0RF Coding Level of Care Code Est Pt Level 4 (07870) Diagnoses LEONIE on CPAP G47.33; Z99.89 Epilepsy G40.909 Down syndrome Q90.9 Gastrointestinal tube present Z93.1 Conjunctivitis H10.9
== END 2023-01-02 15:03 | disposition home or self-care (01) ==
PROVIDERS: PCP Nurse Practitioner Family; Visit Provider Nurse Practitioner Family
DX: G47.33 Obstructive sleep apnea (adult) (pediatric) (principal); Z99.89 Dependence on other enabling machines and devices; G40.909 Epilepsy, unspecified, not intractable, without status epilepticus; Z93.1 Gastrostomy status; Q90.9 Down syndrome, unspecified; H10.9 Unspecified conjunctivitis
CPT/HCPCS: 99214

== ENCOUNTER 2023-02-16 11:33 | Outpatient (REF) | payer OTHER, SELFPAY ==
[2023-02-16 11:43] VITALS: BMI 30.3
[2023-02-16 11:46] VITALS: BP 141/67; PULSE 74; RESP 16; TEMP 36.3; O2SAT 94
[2023-02-16 12:21] VITALS: BP 131/58; PULSE 71; RESP 16; O2SAT 95
--- NOTE | 2023-02-16 14:18 | OP_ITS ---
DATE OF SERVICE: 02/16/2023 SURGEON: Michael Sevilla MD INDICATIONS: Dysphagia and malfunction of previously placed G-tube. PREOPERATIVE DIAGNOSIS: POSTOPERATIVE DIAGNOSIS: PROCEDURE PERFORMED: Gastrostomy tube removal and replacement. ESTIMATED BLOOD LOSS: COMPLICATIONS: ANESTHESIA: ASSISTANTS: SPECIMENS: DESCRIPTION OF PROCEDURE: A history and physical was performed. The risks and benefits of the procedure were explained to the patient's sister and informed consent was obtained. The patient was placed supine on her wheelchair and the previously placed G-tube site was inspected. This appeared intact. The tube showed signs of age with kinking, and it did collapse on suctioning of gastric contents. The external bolster was removed. Traction was used to remove the previously placed G-tube. A new 20-Lithuanian replacement G-tube was passed along the G-tube tract into the stomach to about 8 cm where the balloon was inflated with 10 mL of water. The 2 was pulled snugged to the internal gastric wall and secured externally with the external bolster at about 3 cm. Bacitracin and a dry sterile dressing was applied. The tube was flushed with air and water and auscultation confirmed intragastric placement. Gastric secretions were seen on withdrawal. IMPRESSION: G-tube replacement. The patient's sister was instructed on routine G-tube care. She will follow up on a p.r.n. basis. MD KEESHA Barron/DEJAN / [id number] MTDD
== END 2023-02-16 11:34 | disposition home or self-care (01) ==
LOC: HO.MS 11:33
PROVIDERS: PCP Nurse Practitioner Family; Visit Provider Internal Medicine Gastroenterology
PROC: (CPT 43762; principal; 2023-02-16 11:30)
DX: R13.10 Dysphagia, unspecified (principal); K94.23 Gastrostomy malfunction
CPT/HCPCS: 43762

== ENCOUNTER 2023-03-03 09:55 | Outpatient (AMB) | payer OTHER, SELFPAY ==
--- NOTE | 2023-03-03 09:49 | A.OFFPC_ITS ---
Intake Visit Reasons: bed sores Intake Note: pt is experience worsening bed sores with no relief Board Hammer Operator Required: No Allergies fentanyl [FENTANYL] Allergy (Intermediate, Verified 03/03/23 10:01) UNKNOWN codeine [CODEINE] Allergy (Unknown, Verified 03/03/23 10:01) UNKNOWN lorazepam [From ATIVAN] Allergy (Unknown, Verified 03/03/23 10:01) UNKNOWN oxcarbazepine [OXCARBAZEPINE] Allergy (Unknown, Verified 03/03/23 10:01) UNKNOWN penicillin V Allergy (Unknown, Verified 03/03/23 10:01) Unknown Penicillins [PENICILLINS] Allergy (Unknown, Verified 03/03/23 10:01) DIFFICULTY BREATHING Sulfa (Sulfonamide Antibiotics) [SULFA (SULFONAMIDE ANTIBIOTICS)] Allergy (Unknown, Verified 03/03/23 10:01) DIFFICULTY BREATHING levofloxacin [From LEVAQUIN] Adverse Reaction (Intermediate, Verified 03/03/23 10:01) hallucinations doxycycline Adverse Reaction (Mild, Verified 03/03/23 10:01) Diarrhea Medication List - Last Reconciled 03/03/23 by ENRIQUE Underwood [4x4 lite hydrocellular foam dressings adhesive with 1 inch border ] acetaminophen (Tylenol) 650 mg PO BEDTIME [commode liners As directed] disposable gloves As directed donepezil 10 mg PO DAILY guaifenesin 400 mg (10 mL) PO Q4H PRN 45 days guaifenesin (Marla-Tussin) 200 mg (10 mL) PO Q4H PRN ipratropium bromide 2 sprays intranasal BEDTIME lacosamide (Vimpat) 100 mg (10 mL) PO BEDTIME@2029 Lactobacillus acidophilus 3 tabs PO DAILY lamotrigine 25 mg PO BID levalbuterol HCl 1.25 mg (3 mL) inhalation Q4-6H PRN levetiracetam 50 mg PO DAILY@0400 levetiracetam (Keppra) 1,350 mg PO BEDTIME@2030 levetiracetam (Keppra) 200 mg (2 mL) feeding tube DAILY@0900 memantine 10 mg PO DAILY midazolam (Nayzilam) 5 mg intranasal DAILY PRN nystatin 1 appl topical TID omeprazole magnesium (Prilosec) 20 mg PO DAILY omeprazole-sodium bicarbonate 2-84 mg/mL (Konvomep) 10 mL PO DAILY polyethylene glycol 3350 (Miralax) 17 grams PO DAILY sertraline 30 mg (1.5 mL) PO DAILY silver sulfadiazine 1% 1 appl topical DAILY silver sulfadiazine 1% 1 appl topical BID sodium chloride 0.9% (Wound Wash Saline) 1 appl topical QID PRN Synthroid (levothyroxine) 88 mcg PO DAILY@1030 NS tobramycin 0.3% 2 drps ophthalmic (eye) Q4H [XL diapers As directed] zinc oxide 40% (Boudreauxs Butt Paste) 1 appl topical BID-QID PRN Tobacco use date assessed: 03/03/23 HPI bed sores HPI Details This is a telehealth visit and patient was verified by name and date of - all information was provided by patient's sister Denise who is a caregiver. Patient of ENRIQUE Kamara. This is a 1st time seeing this patient via telehealth today by this provider. Medical history significant for epilepsy, LEONIE on CPAP, Down syndrome, G-tube present with G-tube feedings. Patient is dependent on all ADLs. Last time patient had VNA 08/2022. Patient also has AVIONICS SYSTEMS TECHNICIAN 2 times per day, although AVIONICS SYSTEMS TECHNICIAN unable to come since last week until 03/14/2023 and therefore her sister Denise takes care of the patient. Patient has wounds on her bilateral buttocks for some time now. They have been using Silvadene cream, nystatin powder, and zinc oxide cream. Sister reports that wounds at times improving and then open again. Patient would benefit from VNA nursing for wound care and also G-tube maintenance. Also sister reports that patient has stand lift and she can stand for 20 minutes with help, patient will benefit from home PT. oxygen today 96%, heart rate 66. Sister reports that patient had Fleet yesterday with some bowel movement, although she reports that her abdomen feels big today, patient has bowel sounds per sister, can use another Fleet today if needed for bowel movement. [facility] Medical History (Updated 03/03/23 @ 12:53 by ENRIQUE Underwood) Physical deconditioning Tracheobronchitis G tube feedings Diastolic heart failure Pneumonia MSSA bacteremia Unspecified skin changes Seizure disorder Respiratory distress Aspiration into airway Dysphagia Dementia Toxic metabolic encephalopathy Epilepsy Hypoxemia Dysphagia causing pulmonary aspiration with swallowing LEONIE on CPAP Down syndrome Surgical History History of back surgery Social History Household Members: Family Household Members Other:: sister Housing: House Do you presently have visiting nurse or other home services: Yes Patient Tobacco Use Status: Never used Tobacco service: No Current occupational status: disabled Cognitive needs: No Hearing needs: No Vision needs: No Questionnaire Thrive Questionnaire Date Thrive assessed: 08/09/22 ANIYAH-7 AMB Questionnaire ANIYAH-7 Date ANIYAH - 7 assessed: 08/09/22 Source: Developed by Drs. Carlo Donaldson, Danielle Wallace, Eber Lindquist and colleagues, with an educational danna from [employer] Review of Systems Const Unobtainable due to mental condition and Unobtainable due to mental status Physical exam (Primary Care) Tobacco/Smoking Status: Tobacco use Status Tobacco use date assessed 03/03/23 03/03/23 09:54 Patient Tobacco Use Status Never used Tobacco 03/03/23 09:50 Thrive Assessment: Date of Thrive Assessment Date Thrive assessed 08/09/22 03/03/23 09:50 Const Other: Patient is laying in bed with CPAP on Patient is nonverbal Other: G-tube present Skin Other: Physical exam is limited due to video call and blurry image Left buttock about 3cm in diameter open area noted with pink wound bed Right buttock with two open areas each about 1cm in diameter Bilateral buttocks possibly with macerated skin although difficult to see due to blurry image Telehealth Telehealth Location of provider rendering services: practice address Location of patient: address on file Patient Identification confirmed using: Name, : Yes Telehealth method: video (iphone [phone] ) Patient verbally consented to treatment: Yes Patient verbally consented to billing insurance company: Yes Patient informed of any privacy concerns related to visit: Yes Minutes spent on Phone/Video with Pt.: 25 Assessment and Plan Assessment & Plan (1) G tube feedings: Comment: Jevity 1.0 75/ML/ hr continuous Code(s): Z93.1 - Gastrostomy status Plan: Will request VNA nursing for G-tube management (2) Gastrointestinal tube present: Code(s): Z93.1 - Gastrostomy status Plan: Same as above (3) Down syndrome: Comment: NEEDS FULL CARE 24/ OLDER SISTER PROVIDES GENERAL DUTY NURSE CARE , AN EXCELLENT WORK, AND I DID COMMEND THE SISTER FOR PROVIDING EXCELLENT CARE. Code(s): Q90.9 - Down syndrome, unspecified Plan: Patient requires 24/7 care. Patient has AVIONICS SYSTEMS TECHNICIAN although no AVIONICS SYSTEMS TECHNICIAN until 03/14/2023. Sister is a primary caregiver. Sister reports that patient usually in a bed or wheelchair and they use overhead lift. Patient also has stand lift and she is able to stand for 20 minutes with help - will also refer for home PT for strengthening exercises. (4) Wounds, multiple: Code(s): T07.XXXA - Unspecified multiple injuries, initial encounter Plan: Physical exam is limited due to video call and blurry image Left buttock about 3cm in diameter open area noted with pink wound bed - cleanse with normal saline, apply Silvadene cream b.i.d. cover with dry clean dressing Right buttock with two open areas each about 1cm in diameter - cleanse with normal saline, apply Silvadene cream b.i.d. cover with dry clean dressing Bilateral buttocks possibly with macerated skin although difficult to see due to blurry image - apply zinc oxide cream b.i.d.-q.i.d. p.r.n. Patient also has nystatin powder for groin/buttock rash t.i.d. (5) Physical deconditioning: Code(s): R53.81 - Other malaise Plan: VNA for home PT Plan Keep appointment with PCP as scheduled or follow-up sooner as needed Orders: Referrals [facility] Referral Q90.9 - Down syndrome, unspecified, R53.81 - Other malaise, T07.XXXA - Unspecified multiple injuries, initial encounter, Z93.1 - Gastrostomy status Coding Level of Care Code Tele Est Pt Level 3 (49496) Diagnoses G tube feedings Z93.1 Gastrointestinal tube present Z93.1 Down syndrome Q90.9 Wounds, multiple T07.XXXA Physical deconditioning R53.81
== END 2023-03-03 11:05 | disposition home or self-care (01) ==
PROVIDERS: PCP Nurse Practitioner Family; Visit Provider Nurse Practitioner Family
DX: R53.81 Other malaise (principal); Z93.1 Gastrostomy status; Q90.9 Down syndrome, unspecified; T07.XXXA Unspecified multiple injuries, initial encounter
CPT/HCPCS: 99213

== ENCOUNTER 2023-04-04 14:00 | Outpatient (AMB) | payer OTHER, SELFPAY ==
--- NOTE | 2023-04-04 13:55 | MHC.PC.OV ---
Intake Visit Reasons: 3 month f/u Intake Note: Patient is here to follow up on Epilepsy, LEONIE, Pressure ulcer. Lumpia Wrapper Maker Required: No Microwave Oven Assembler: Present Accompanied by: Sister Allergies fentanyl [FENTANYL] Allergy (Intermediate, Verified 04/04/23 14:23) UNKNOWN codeine [CODEINE] Allergy (Unknown, Verified 04/04/23 14:23) UNKNOWN lorazepam [From ATIVAN] Allergy (Unknown, Verified 04/04/23 14:23) UNKNOWN oxcarbazepine [OXCARBAZEPINE] Allergy (Unknown, Verified 04/04/23 14:23) UNKNOWN penicillin V Allergy (Unknown, Verified 04/04/23 14:23) Unknown Penicillins [PENICILLINS] Allergy (Unknown, Verified 04/04/23 14:23) DIFFICULTY BREATHING Sulfa (Sulfonamide Antibiotics) [SULFA (SULFONAMIDE ANTIBIOTICS)] Allergy (Unknown, Verified 04/04/23 14:23) DIFFICULTY BREATHING levofloxacin [From LEVAQUIN] Adverse Reaction (Intermediate, Verified 04/04/23 14:23) hallucinations doxycycline Adverse Reaction (Mild, Verified 04/04/23 14:23) Diarrhea Medication List - Last Reconciled 04/04/23 by ENRIQUE Brown [4x4 lite hydrocellular foam dressings adhesive with 1 inch border ] acetaminophen (Tylenol) 650 mg PO BEDTIME [commode liners As directed] disposable gloves As directed donepezil 10 mg PO DAILY guaifenesin 400 mg (10 mL) PO Q4H PRN 45 days guaifenesin (Marla-Tussin) 200 mg (10 mL) PO Q4H PRN ipratropium bromide 2 sprays intranasal BEDTIME lacosamide (Vimpat) 100 mg (10 mL) PO BEDTIME@2030 Lactobacillus acidophilus 3 tabs PO DAILY lamotrigine 25 mg PO BID levalbuterol HCl 1.25 mg (3 mL) inhalation Q4-6H PRN levetiracetam 50 mg PO DAILY@0400 levetiracetam (Keppra) 1,350 mg PO BEDTIME@2030 levetiracetam (Keppra) 200 mg (2 mL) feeding tube DAILY@0900 memantine 10 mg PO DAILY midazolam (Nayzilam) 5 mg intranasal DAILY PRN nystatin 1 appl topical QID omeprazole magnesium (Prilosec) 20 mg PO DAILY omeprazole-sodium bicarbonate 2-84 mg/mL (Konvomep) 10 mL PO DAILY polyethylene glycol 3350 (Miralax) 17 grams PO DAILY sertraline 30 mg (1.5 mL) PO DAILY silver sulfadiazine 1% 1 appl topical DAILY silver sulfadiazine 1% 1 appl topical BID sodium chloride 0.9% (Wound Wash Saline) 1 appl topical QID PRN Synthroid (levothyroxine) 88 mcg PO DAILY@1030 NS tobramycin 0.3% 2 drps ophthalmic (eye) Q4H [XL diapers As directed] zinc oxide 40% (Boudreauxs Butt Paste) 1 appl topical BID-QID PRN Tobacco use date assessed: 03/03/23 HPI HPI Comments History of Present Illness Details 62-year-old female past medical history significant for Down syndrome, dysphagia, aspiration pneumonia, seizure disorder and obstructive sleep apnea. Patient presents today for a telehealth follow-up, appointment was completed by patient's primary care give her an healthcare proxy Denise (sister). Patient's sister reports that her bedsores almost completely resolved however there was an occurrence with VNA was unable to come 1 day so she states that the bedsores have reopened. [facility] Patient's sister requesting referral for occupational therapy for hand therapy stating that due to physical deconditioning patient is no longer moving her hands as much as she used to or reaching for objects as she was previously doing. Referral entered for home occupational therapy. Denies the need for any refills. [facility] Medical History (Updated 03/08/23 @ 09:09 by ENRIQUE Underwood) Physical deconditioning Tracheobronchitis G tube feedings Diastolic heart failure Pneumonia MSSA bacteremia Unspecified skin changes Seizure disorder Respiratory distress Aspiration into airway Dysphagia Dementia Toxic metabolic encephalopathy Epilepsy Hypoxemia Dysphagia causing pulmonary aspiration with swallowing LEONIE on CPAP Down syndrome Surgical History History of back surgery Social History Household Members: Family Household Members Other:: sister Housing: House Do you presently have visiting nurse or other home services: Yes Patient Tobacco Use Status: Never used Tobacco e-Cigarette/Vaping Use: Never Used Second Hand Smoke Exposure: No service: No Current occupational status: disabled Cognitive needs: No Hearing needs: No Vision needs: No Questionnaire Thrive Questionnaire Date Thrive assessed: 08/09/22 ANIYAH-7 AMB Questionnaire ANIYAH-7 Date ANIYAH - 7 assessed: 08/09/22 Source: Developed by Drs. Carlo Donaldson, Danielle Wallace, Eber Lindquist and colleagues, with an educational danna from [employer] Review of Systems Const Unobtainable due to mental status Physical exam (Primary Care) Vital Signs: unable to complete, telehealth appointment Tobacco/Smoking Status: Tobacco use Status Tobacco use date assessed 03/03/23 04/04/23 13:59 Patient Tobacco Use Status Never used Tobacco 04/04/23 13:59 e-Cigarette/Vaping Use Never Used 04/04/23 13:59 Thrive Assessment: Date of Thrive Assessment Date Thrive assessed 08/09/22 04/04/23 13:59 Telehealth Telehealth Location of provider rendering services: practice address Location of patient: address on file Patient Identification confirmed using: Name, : Yes Telehealth method: voice only Patient verbally consented to treatment: Yes Patient verbally consented to billing insurance company: Yes Patient informed of any privacy concerns related to visit: Yes Assessment and Plan Assessment & Plan (1) Physical deconditioning: Code(s): R53.81 - Other malaise Plan: Requesting a referral for occupational therapy in addition to physical therapy to help patient with reaching and grasping for options. Referral entered [facility] occupational therapy. Continue with physical therapy. (2) Pressure ulcer of right buttock, stage 2: Code(s): L89.312 - Pressure ulcer of right buttock, stage 2 Plan: cleanse with normal saline, apply Silvadene cream b.i.d. cover with dry clean dressing Continue to apply zinc oxide to any macerated skin surrounding pressure ulcers. (3) Pressure ulcer of left buttock, stage 2: Code(s): L89.322 - Pressure ulcer of left buttock, stage 2 Plan: cleanse with normal saline, apply Silvadene cream b.i.d. cover with dry clean dressing Continue to apply zinc oxide to any macerated skin surrounding pressure ulcers. (4) LEONIE on CPAP: Comment: This patient has long-standing history of obstructive sleep apnea and the sister puts on the CPAP every night, so that she can sleep well. Code(s): G47.33 - Obstructive sleep apnea (adult) (pediatric); Z99.89 - Dependence on other enabling machines and devices Plan: Continue on Cpap for >4hours a night and benefits from this. (5) Down syndrome: Comment: NEEDS FULL CARE 24/7 OLDER SISTER PROVIDES PRECISION LENS GRINDER APPRENTICE CARE , AN EXCELLENT WORK, AND I DID COMMEND THE SISTER FOR PROVIDING EXCELLENT CARE. Code(s): Q90.9 - Down syndrome, unspecified Plan: Patient requires 24/7 care. Patient has OSTOMY CARE NURSE. Sister is a primary caregiver. Sister reports that patient usually in a bed or wheelchair and they use overhead lift. Patient also has stand lift and she is able to stand for 20 minutes with help - patient has been completing physical therapy for strengthening exercises. (6) Epilepsy: Comment: Controlled with meds, follows up with Neurology. Code(s): G40.909 - Epilepsy, unspecified, not intractable, without status epilepticus (7) G tube feedings: Comment: Jevity 1.0 75/ML/ hr continuous Code(s): Z93.1 - Gastrostomy status Plan: Patient has [facility] for G-tube maintainence (8) Gastrointestinal tube present: Code(s): Z93.1 - Gastrostomy status Plan: Same as above Plan Keep appointment with PCP as scheduled or follow-up sooner as needed Orders: Referrals [facility] Referral R53.81 - Other malaise Medications: Refilled tobramycin 0.3% 2 drps ophthalmic (eye) Q4H 5 mL 0RF Coding Level of Care Code Tele New Pt Level 4 (45089) Diagnoses Physical deconditioning R53.81 Pressure ulcer of right buttock, stage 2 L89.312 Pressure ulcer of left buttock, stage 2 L89.322 LEONIE on CPAP G47.33; Z99.89 Down syndrome Q90.9 Epilepsy G40.909 G tube feedings Z93.1 Gastrointestinal tube present Z93.1
== END 2023-04-04 14:30 | disposition home or self-care (01) ==
LOC: HO.HMGH 14:00
PROVIDERS: PCP Nurse Practitioner Family; Visit Provider Nurse Practitioner Family
DX: R53.81 Other malaise (principal); G47.33 Obstructive sleep apnea (adult) (pediatric); G40.909 Epilepsy, unspecified, not intractable, without status epilepticus; Z93.1 Gastrostomy status
CPT/HCPCS: 99214

== ENCOUNTER 2023-06-18 15:33 | Emergency (ER) | payer OTHER, SELFPAY ==
--- NOTE | ~2023-06-18 | XR_ITS ---
EXAMINATION: XR ABDOMEN KUB CLINICAL INDICATION: Tube placement COMPARISON: CT abdomen pelvis 02/25/2022. TECHNIQUE: AP view of the abdomen. FINDINGS: Percutaneous enterostomy tube overlies the upper abdomen. Contrast within the gastric duodenal and proximal jejunal lumen. Nonobstructing bowel gas pattern. XR/XR KUB IMPRESSION: 1. Intraluminal positioning of percutaneous feeding tube. 2. Nonobstructing bowel gas pattern.
[2023-06-18 15:50] VITALS: BP 170/80; PULSE 80; O2SAT 95
[2023-06-18 15:55] VITALS: BP 99/66; PULSE 68; RESP 18; TEMP 36.8; O2SAT 97; BMI 30.3
--- NOTE | 2023-06-18 17:59 | ED_ITS ---
HPI - General Adult General Chief complaint: General Medical Stated complaint: G-TUBE ISSUE FROM HOME PER EMS Time Seen by Provider: 06/18/23 17:00 Source: patient, family (Mother who is primary caregiver), RN notes reviewed and old records reviewed Mode of arrival: EMS Limitations: no limitations History of Present Illness HPI narrative: 62-year-old female presents for evaluation of ?G-tube issues. ? Patient has had a G-tube since April of 2022 Per the patient's mother, the G-tube was last changed by Dr. Sevilla in January or February of this past year The patient's mother states that there has been some drainage from around the wound and the G tube orifice has some redness around it She spoke to Dr. Sevilla last night and was encouraged to use bacitracin around the area and bring him to the ER if the redness did not improve The patient's mother is hoping to have the G-tube change as are also ?kink in it and it has difficulty feeding. ? The patient has a history of Down syndrome and is a poor historian but offers no complaints herself Related Data Home Medications Medication Instructions Recorded Confirmed ipratropium bromide 21 mcg (0.03 2 spray intranasal BEDTIME 10/21/20 04/04/23 %) nasal spray levetiracetam 100 mg/mL oral 1,350 mg PO BEDTIME@202910/09/21 04/04/23 solution (Keppra) acetaminophen 325 mg tablet 650 mg PO BEDTIME 02/25/22 04/04/23 (Tylenol) levetiracetam 100 mg/mL oral 50 mg PO DAILY@04002/25/22 04/04/23 solution midazolam 5 mg/spray (0.1 mL) 5 mg intranasal DAILY PRN Seizure 02/25/22 04/04/23 nasal spray (Nayzilam) Activity polyethylene glycol 3350 17 gram 17 g PO DAILY 02/25/22 04/04/23 oral powder packet (Miralax) Lactobacillus acidophilus 0.5 mg 3 tab PO DAILY 04/26/22 04/04/23 (100 million cell) tablet donepezil 10 mg disintegrating 10 mg PO DAILY 01/02/23 04/04/23 tablet memantine 10 mg tablet 10 mg PO DAILY 03/03/23 04/04/23 Previous Rx's Medication Instructions Recorded guaifenesin 200 mg/5 mL oral liquid 400 mg (10 mL) PO Q4H PRN cough 45 05/09/22 days #473 mL lacosamide 10 mg/mL oral solution 100 mg (10 mL) PO BEDTIME@2030 09/08/22 (Vimpat) #200 mL levetiracetam 100 mg/mL oral 200 mg (2 mL) feeding tube 09/08/22 solution (Keppra) DAILY@0900 #473 mL omeprazole magnesium 10 mg oral 20 mg PO DAILY #30 ea 10/27/22 suspension,delayed release (Prilosec) omeprazole 2 mg-sodium bicarbonate 10 ml PO DAILY #300 mL 12/16/22 84 mg/mL oral suspension (Konvomep) 4x4 lite hydrocellular foam #30 ea 01/30/23 dressings XL diapers #60 ea 01/30/23 commode liners #60 ea 01/30/23 disposable gloves #1,000 ea 01/30/23 guaifenesin 100 mg/5 mL oral 200 mg (10 mL) PO Q4H PRN for 01/30/23 liquid (Marla-Tussin) cough #473 mL sodium chloride 0.9 % topical 1 appl topical QID PRN skin 01/30/23 spray (Wound Wash Saline) cleansing #210 grams zinc oxide 40 % topical ointment 1 appl topical BID-QID PRN skin 01/30/23 (Boudreauxs Butt Paste) irritation #113 grams nystatin 100,000 unit/gram topical 1 appl topical QID #60 grams 03/06/23 powder Synthroid 88 mcg tablet 88 mcg PO DAILY@1030 #30 tabs 03/09/23 (levothyroxine) lamotrigine 25 mg chewable 25 mg PO BID #60 ea 04/11/23 dispersible tablet silver sulfadiazine 1 % topical 1 appl topical BID #400 grams 04/12/23 cream silver sulfadiazine 1 % topical 1 appl topical DAILY #85 grams 04/12/23 cream tobramycin 0.3 % eye drops 2 drp ophthalmic (eye) Q4H #5 mL 04/12/23 levalbuterol HCl 1.25 mg/3 mL 1.25 mg (3 mL) inhalation Q4-6H 11/22/23 solution for nebulization PRN for wheezing 90 days #1,620 mL sertraline 20 mg/mL oral 30 mg (1.5 mL) PO DAILY #60 mL 06/10/23 concentrate Allergies Allergy/AdvReac Type Severity Reaction Status Date / Time fentanyl [FENTANYL] Allergy Intermediate UNKNOWN Verified 06/18/23 15:55 codeine [CODEINE] Allergy Unknown UNKNOWN Verified 06/18/23 15:55 lorazepam [From ATIVAN] Allergy Unknown UNKNOWN Verified 06/18/23 15:55 oxcarbazepine [OXCARBAZEPINE] Allergy Unknown UNKNOWN Verified 06/18/23 15:55 penicillin V Allergy Unknown Unknown Verified 06/18/23 15:55 Penicillins [PENICILLINS] Allergy Unknown DIFFICULTY Verified 06/18/23 15:55 BREATHING Sulfa (Sulfonamide Allergy Unknown DIFFICULTY Verified 06/18/23 15:55 Antibiotics) BREATHING [SULFA (SULFONAMIDE ANTIBIOTICS)] levofloxacin [From LEVAQUIN] AdvReac Intermediate hallucinati Verified 06/18/23 15:55 ons doxycycline AdvReac Mild Diarrhea Verified 06/18/23 15:55 Review of Systems Constitutional: Constitutional: Denies chills and Denies fever(s) Respiratory: Respiratory: Denies cough Gastrointestinal: Gastrointestinal: Denies abdominal pain Integumentary/Breasts: Skin/Breast: Reports erythema PMFSH Past Medical History Onset Date is defined in the Problem List Problems that require an onset date and time if occurred within 24 hrs of arrival to the ED Aortic Dissection and Rupture; Neurologic impairment; Cardiopulmonary Arrest; Endotracheal Intubation; Insertion or Replacement of Mechanical Circulatory Assist Device Medical History (Updated 06/18/23 @ 18:01 by Adair Camejo) Physical deconditioning Tracheobronchitis G tube feedings Diastolic heart failure Pneumonia MSSA bacteremia Unspecified skin changes Seizure disorder Respiratory distress Aspiration into airway Dysphagia Dementia Toxic metabolic encephalopathy Epilepsy Hypoxemia Dysphagia causing pulmonary aspiration with swallowing LEONIE on CPAP Down syndrome Surgical History History of back surgery Social History Social History Household Members: Family Household Members Other:: sister Housing: House Do you presently have visiting nurse or other home services: Yes Alcohol intake: never Comment: family member in room Patient Tobacco Use Status: Never used Tobacco Smoked in Last 30 Days: No e-Cigarette/Vaping Use: Never Used Second Hand Smoke Exposure: No Use of substances other than those prescribed or required for medical reasons: No Advance Directives: Yes Advance Directives on File: Yes Advance Directives Date on File: 06/18/23 service: No Current occupational status: disabled Cognitive needs: No Hearing needs: No Vision needs: No Physical Exam ED Vital Signs: Vital Signs - 24 hr 06/18/23 15:55 Temperature 98.2 F Pulse Rate 68 Respiratory Rate 18 Blood Pressure 99/66 Pulse Oximetry 97 Oxygen Delivery Method Room Air BMI result Body Mass Index 30.3 Const General: healthy appearing, comfortable, no acute distress, alert and awake Nutritional Appearance: well nourished HENTX Head: Yes normocephalic and Yes atraumatic Eyes Eyelids: Yes eyelids normal Conjunctivae: conjunctivae normal Sclerae: sclerae normal Corneas: corneas normal Pupils: Equal, round and reactive pupils present EOM: EOMs intact bilaterally Neck Neck: Yes full ROM Resp Effort & Inspection: normal respiratory effort, able to speak in complete sentences, no audible wheezes and not labored Auscultation: clear to auscultation bilaterally Cardio Rate: regular rate Rhythm: regular rhythm GI Other: G-tube placement in the left upper quadrant. There is minimal surrounding erythema, no purulent drainage, no palpable masses or lesions around the wound. More consistent with granulomatous tissue as opposed to beefy red cellulitis Inspection: No distended Palpation (GI): Soft to palpation, not firm, nontender, no guarding and not rigid Skin General skin exam: elasticity normal Neuro Cranial nerves: Yes Equal, round and reactive pupils present and Yes Bilaterally intact EOM present Cognition (Neuro): normal cognition Extrem Other: Moving all extremities well without any obvious deformities Medications Administered Discontinued Medications Generic Name Dose Route Start Last Admin Trade Name Freq PRN Reason Stop Dose Admin Diatrizoate Meglum/Diatrizoate Sod 30 ml 06/18/23 18:14 06/18/23 18:15 Diatrizoate Meglumine, Sodium 30 Ml Solution PO 06/18/23 18:15 30 ml ONCE ONE Administration Medical Decision Making Medical Decision Making MDM Narrative: 62-year-old female presents for evaluation of G-tube issues. Does not appear to be any obvious cellulitis or abscess in the area of the wound. We will change the patient's G-tube and confirm placement. She will follow-up with her GI doctor Differential Diagnosis Differential Diagnoses: The differential diagnosis associated with the presentation includes G-tube dislodgement Gastrostomy Malnutrition Cellulitis Abscess Independent Interpretation I performed an independent interpretation of an: Plain X-Ray (Proper placement of G-tube with Gastrografin within the stomach and small intestine) Discharge Plan Discharge Clinical Impression: Gastrointestinal tube present Patient Disposition: Home, Self-Care Instructions: How to Use and Care for Your PEG Tube (ED) Additional Instructions: Your G-tube was replaced today. It is the same size, 20 Japanese that you had previously Continue the dressing changes as you have been Follow-up with Dr. Sevilla, GI Prescriptions: No Action guaifenesin 200 mg/5 mL liquid 400 mg PO Q4H PRN (Reason: cough) 45 Days Qty: 473 2RF lacosamide [Vimpat] 10 mg/mL solution 100 mg PO BEDTIME@2030 Qty: 200 0RF levetiracetam [Keppra] 100 mg/mL solution 200 mg feeding tube DAILY@0900 Qty: 473 0RF Rx Instructions: Give in morning Prilosec 10 mg susp,delayed release for recon 20 mg PO DAILY Qty: 30 0RF Hold Instructions: Doctor's Order Konvomep 2-84 mg/mL suspension for reconstitution 10 ml PO DAILY Qty: 300 0RF guaifenesin [Marla-Tussin] 100 mg/5 mL liquid 200 mg PO Q4H PRN (Reason: for cough) Qty: 473 4RF (DME) commode liners See Rx Instructions .Route .MEDSUPPLY Qty: 60 0RF Rx Instructions: As directed Wound Wash Saline 0.9 % aerosol,spray 1 appl topical QID PRN (Reason: skin cleansing) Qty: 210 11RF zinc oxide [Boudreauxs Butt Paste] 40 % ointment 1 appl topical BID-QID PRN (Reason: skin irritation) Qty: 113 11RF (DME) XL diapers XL See Rx Instructions .Route .MEDSUPPLY Qty: 60 11RF Rx Instructions: As directed (DME) disposable gloves Misc See Rx Instructions .Route Qty: 1000 11RF Rx Instructions: As directed (DME) 4x4 lite hydrocellular foam dressings 4x4 See Rx Instructions .Route .MEDSUPPLY Qty: 30 11RF Rx Instructions: adhesive with 1 inch border levothyroxine [Synthroid] 88 mcg tablet 88 mcg PO DAILY@1030 Qty: 30 3RF lamotrigine 25 mg tablet, chewable dispersible 25 mg PO BID Qty: 60 3RF silver sulfadiazine 1 % cream 1 appl topical DAILY Qty: 85 3RF Rx Instructions: apply a 1.5 mm thickness silver sulfadiazine 1 % cream 1 appl topical BID Qty: 400 11RF Rx Instructions: apply a 1.5 mm thickness tobramycin 0.3 % drops 2 drp ophthalmic (eye) Q4H Qty: 5 0RF levalbuterol HCl 1.25 mg/3 mL solution for nebulization 1.25 mg inhalation Q4-6H PRN (Reason: for wheezing) 90 Days Qty: 1620 0RF sertraline 20 mg/mL concentrate 30 mg PO DAILY Qty: 60 3RF Nayzilam 5 mg/spray (0.1 mL) spray,non-aerosol 5 mg intranasal DAILY PRN (Reason: Seizure Activity) acetaminophen [Tylenol] 325 mg Tablet 650 mg PO BEDTIME levetiracetam 100 mg/mL solution 50 mg PO DAILY@0400 polyethylene glycol 3350 [Miralax] 17 gram Powder In Packet 17 g PO DAILY levetiracetam [Keppra] 100 mg/mL Solution 1,350 mg PO BEDTIME@2030 Lactobacillus acidophilus 0.5 mg (100 million cell) tablet 3 tab PO DAILY donepezil 10 mg tablet,disintegrating 10 mg PO DAILY memantine 10 mg tablet 10 mg PO DAILY nystatin 100,000 unit/gram powder 1 appl topical QID Qty: 60 3RF ipratropium bromide 21 mcg (0.03 %) spray,non-aerosol 2 spray intranasal BEDTIME Referrals: Michael Sevilla MD [Physician] - (g tube)
[2023-06-18] MEDS: Diatrizoate Meglumine, Sodium 30 ML SOLUTION PO (18:15)
[2023-06-18 19:08] VITALS: BP 153/83; PULSE 74; RESP 18; O2SAT 97
== END 2023-06-18 20:15 | disposition home or self-care (01) ==
PROVIDERS: Emergency Provider Internal Medicine; PCP Internal Medicine
DX: Z43.1 Encounter for attention to gastrostomy (principal); G40.909 Epilepsy, unspecified, not intractable, without status epilepticus
CPT/HCPCS: 74018; 99283; 99284

== ENCOUNTER 2023-07-11 17:08 | Emergency (ER) | payer OTHER, SELFPAY ==
[2023-07-11 17:28] VITALS: PULSE 88; O2SAT 100
[2023-07-11 17:46] VITALS: BP 112/47; PULSE 71; RESP 16; TEMP 36.5; O2SAT 100; BMI 42.6
[2023-07-11 17:49] VITALS: BP 112/47; PULSE 71; RESP 16; TEMP 36.5; O2SAT 100
--- NOTE | 2023-07-11 18:18 | PC.NURSE ---
pt presents to ED from home via EMS. pt is developmentally delayed, mother is primary caregiver and is at bedside. pt needs full care at home, not ambulatory per mother. pt is resting in bed, breathing even and unlabored. Mother reports pt has G-tube (was recently replaced here at [facility] [place] on 05/17/23), yesterday while changing pt the g-tube got pulled. Since yesterday, Mother has noticed redness and some clear drainage around site of g-tube, is worried it is infected. Mother denies any vomiting, fevers, cough or pt appearing in pain. Mother reports the g-tube still flushes well, no swelling or abd distention. Pt resting in bed, mother reports she looks comfortable at this time.
--- NOTE | 2023-07-11 18:33 | ED.GENADULT ---
HPI - General Adult General Chief complaint: General Medical Stated complaint: Poss G-tube infection, growing red [place] Time Seen by Provider: 07/11/23 18:09 Source: patient, family (Sister who is primary caregiver), RN notes reviewed and old records reviewed Mode of arrival: EMS Limitations: language barrier (Patient is mostly nonverbal) History of Present Illness HPI narrative: 62-year-old female presents for evaluation of issues with her G-tube. She has had a G-tube since April of 2022. Patient follows Dr. Sevilla for GI The G-tube was last changed by myself here on June 17, 2023. The patient's sister states that 3 days after the on June 20 ?was turning her in bed and it pulled out a little. Patient's sister says that she has been discussed with Dr. Sevilla who has recommended topical antibiotic around the area Since last night the patient's sister states the patient has seemed somewhat uncomfortable when she pushes on the area She states that there has been some bloody discharge from around the G-tube over the last few hours The tube still flushes well Related Data Home Medications Medication Instructions Recorded Confirmed ipratropium bromide 21 mcg (0.03 2 spray intranasal BEDTIME 10/21/20 04/04/23 %) nasal spray levetiracetam 100 mg/mL oral 1,350 mg PO BEDTIME@202910/09/21 04/04/23 solution (Keppra) acetaminophen 325 mg tablet 650 mg PO BEDTIME 02/25/22 04/04/23 (Tylenol) levetiracetam 100 mg/mL oral 50 mg PO DAILY@0400 02/25/22 04/04/23 solution midazolam 5 mg/spray (0.1 mL) 5 mg intranasal DAILY PRN Seizure 02/25/22 04/04/23 nasal spray (Nayzilam) Activity polyethylene glycol 3350 17 gram 17 g PO DAILY 02/25/22 04/04/23 oral powder packet (Miralax) Lactobacillus acidophilus 0.5 mg 3 tab PO DAILY 04/26/22 04/04/23 (100 million cell) tablet donepezil 10 mg disintegrating 10 mg PO DAILY 01/02/23 04/04/23 tablet memantine 10 mg tablet 10 mg PO DAILY 03/03/23 04/04/23 Previous Rx's Medication Instructions Recorded guaifenesin 200 mg/5 mL oral liquid 400 mg (10 mL) PO Q4H PRN cough 45 05/09/22 days #473 mL lacosamide 10 mg/mL oral solution 100 mg (10 mL) PO BEDTIME@2030 09/08/22 (Vimpat) #200 mL levetiracetam 100 mg/mL oral 200 mg (2 mL) feeding tube 09/08/22 solution (Keppra) DAILY@0900 #473 mL omeprazole magnesium 10 mg oral 20 mg PO DAILY #30 ea 10/27/22 suspension,delayed release (Prilosec) omeprazole 2 mg-sodium bicarbonate 10 ml PO DAILY #300 mL 12/16/22 84 mg/mL oral suspension (Konvomep) 4x4 lite hydrocellular foam #30 ea 01/30/23 dressings XL diapers #60 ea 01/30/23 commode liners #60 ea 01/30/23 disposable gloves #1,000 ea 01/30/23 guaifenesin 100 mg/5 mL oral 200 mg (10 mL) PO Q4H PRN for 01/30/23 liquid (Marla-Tussin) cough #473 mL sodium chloride 0.9 % topical 1 appl topical QID PRN skin 01/30/23 spray (Wound Wash Saline) cleansing #210 grams zinc oxide 40 % topical ointment 1 appl topical BID-QID PRN skin 01/30/23 (Boudreauxs Butt Paste) irritation #113 grams nystatin 100,000 unit/gram topical 1 appl topical QID #60 grams 03/06/23 powder Synthroid 88 mcg tablet 88 mcg PO DAILY@1030 #30 tabs 03/09/23 (levothyroxine) lamotrigine 25 mg chewable 25 mg PO BID #60 ea 04/11/23 dispersible tablet silver sulfadiazine 1 % topical 1 appl topical BID #400 grams 04/12/23 cream silver sulfadiazine 1 % topical 1 appl topical DAILY #85 grams 04/12/23 cream levalbuterol HCl 1.25 mg/3 mL 1.25 mg (3 mL) inhalation Q4-6H 04/26/23 solution for nebulization PRN for wheezing 90 days #1,620 mL sertraline 20 mg/mL oral 30 mg (1.5 mL) PO DAILY #60 mL 06/10/23 concentrate tobramycin 0.3 % eye drops 2 drp ophthalmic (eye) Q4H #5 mL 06/21/23 Allergies Allergy/AdvReac Type Severity Reaction Status Date / Time fentanyl [FENTANYL] Allergy Intermediate UNKNOWN Verified 06/18/23 15:55 codeine [CODEINE] Allergy Unknown UNKNOWN Verified 06/18/23 15:55 lorazepam [From ATIVAN] Allergy Unknown UNKNOWN Verified 06/18/23 15:55 oxcarbazepine [OXCARBAZEPINE] Allergy Unknown UNKNOWN Verified 06/18/23 15:55 penicillin V Allergy Unknown Unknown Verified 06/18/23 15:55 Penicillins [PENICILLINS] Allergy Unknown DIFFICULTY Verified 06/18/23 15:55 BREATHING Sulfa (Sulfonamide Allergy Unknown DIFFICULTY Verified 06/18/23 15:55 Antibiotics) BREATHING [SULFA (SULFONAMIDE ANTIBIOTICS)] levofloxacin [From LEVAQUIN] AdvReac Intermediate hallucinati Verified 06/18/23 15:55 ons doxycycline AdvReac Mild Diarrhea Verified 06/18/23 15:55 Review of Systems Constitutional: Constitutional: Denies chills and Denies fever(s) Cardiovascular: Cardiovascular: Denies chest pain Gastrointestinal: Gastrointestinal: Denies abdominal pain Comments: G-tube placement PMFSH Past Medical History Medical History (Updated 07/11/23 @ 19:29 by Adair Camejo) Physical deconditioning Tracheobronchitis G tube feedings Diastolic heart failure Pneumonia MSSA bacteremia Unspecified skin changes Seizure disorder Respiratory distress Aspiration into airway Dysphagia Dementia Toxic metabolic encephalopathy Epilepsy Hypoxemia Dysphagia causing pulmonary aspiration with swallowing LEONIE on CPAP Down syndrome Surgical History History of back surgery Social History Social History Household Members: Family Household Members Other:: sister Housing: House Do you presently have visiting nurse or other home services: Yes Alcohol intake: never Comment: family member in room Patient Tobacco Use Status: Never used Tobacco Smoked in Last 30 Days: No e-Cigarette/Vaping Use: Never Used Second Hand Smoke Exposure: No Use of substances other than those prescribed or required for medical reasons: No Advance Directives Date on File: 01/14/24 service: No Current occupational status: disabled Cognitive needs: No Hearing needs: No Vision needs: No Physical Exam ED Vital Signs: Vital Signs - 24 hr 07/11/23 17:46 07/11/23 17:49 Temperature 97.7 F 97.7 F Pulse Rate 71 71 Respiratory Rate 16 16 Blood Pressure 112/47 L 112/47 L Pulse Oximetry 100 100 Oxygen Delivery Method Room Air Room Air BMI result Body Mass Index 42.6 Const General: healthy appearing, comfortable, no acute distress, alert and awake Nutritional Appearance: well nourished [facility] Head: Yes normocephalic and Yes atraumatic Eyes Eyelids: Yes eyelids normal Conjunctivae: conjunctivae normal Sclerae: sclerae normal Corneas: corneas normal Pupils: Equal, round and reactive pupils present EOM: EOMs intact bilaterally Neck Neck: Yes full ROM Resp Effort & Inspection: normal respiratory effort, able to speak in complete sentences and not labored GI Other: G-tube in place, there is faint erythema on both sides of the G tube orifice. There is no purulence. There is no guarding or tenderness on palpation. There is no palpable abscess, no purulent drainage from the area. Inspection: No distended Palpation (GI): Soft to palpation, not firm, nontender, no guarding and not rigid Auscultation: normoactive bowel sounds Skin General skin exam: elasticity normal Neuro Cranial nerves: Yes Equal, round and reactive pupils present and Yes Bilaterally intact EOM present Extrem Other: Moving all extremities well without any obvious deformities Course Reevaluation(s) Reevaluation #1: The G-tube appears well secured on exam, I can not with dry more than about 3 cm. I checked the balloon had 7 cc of saline in it there was no difficulty aspirating this or reinforcing it to be secure the balloon. Time: 19:27 Medical Decision Making Medical Decision Making MDM Narrative: Patient was seen and evaluated, the patient's caregiver is concerned that the G-tube has an infection around the area. There have been no fevers. On exam, the G-tube appears well maintained, there is faint erythema which is likely related to mild skin breakdown. No evidence of abscess or cellulitis. The line flushes well, I spoke with GI, Dr. Lizama he does not recommend changing the G-tube as long as it flushes well. He does recommend checking the balloon to make sure there has not been any leaking. Securing the area so that there is no skin breakdown with gauze underneath the plastic part. Patient's sister/caregiver was educated on maintenance of the G-tube Differential Diagnosis Differential Diagnoses: The differential diagnosis associated with the presentation includes G-tube placement G-tube malfunction Cellulitis Skin abscess Discharge Plan Discharge Clinical Impression: Gastrointestinal tube present Patient Disposition: Home, Self-Care Instructions: How to Use and Care for Your PEG Tube (ED) Additional Instructions: Continue maintaining the G-tube as you have been, you may continue to use barrier protection with Neosporin or bacitracin as well as 2 gauze pain just underneath the plastic. Call Dr. Sevilla office tomorrow to schedule a follow-up appointment. The area does not appear infected at this time. Return for new or worsening symptoms Prescriptions: No Action guaifenesin 200 mg/5 mL liquid 400 mg PO Q4H PRN (Reason: cough) 45 Days Qty: 473 2RF lacosamide [Vimpat] 10 mg/mL solution 100 mg PO BEDTIME@2030 Qty: 200 0RF levetiracetam [Keppra] 100 mg/mL solution 200 mg feeding tube DAILY@0900 Qty: 473 0RF Rx Instructions: Give in morning Prilosec 10 mg susp,delayed release for recon 20 mg PO DAILY Qty: 30 0RF Hold Instructions: Doctor's Order Konvomep 2-84 mg/mL suspension for reconstitution 10 ml PO DAILY Qty: 300 0RF guaifenesin [Marla-Tussin] 100 mg/5 mL liquid 200 mg PO Q4H PRN (Reason: for cough) Qty: 473 4RF (DME) commode liners See Rx Instructions .Route .MEDSUPPLY Qty: 60 0RF Rx Instructions: As directed Wound Wash Saline 0.9 % aerosol,spray 1 appl topical QID PRN (Reason: skin cleansing) Qty: 210 11RF zinc oxide [Boudreauxs Butt Paste] 40 % ointment 1 appl topical BID-QID PRN (Reason: skin irritation) Qty: 113 11RF (DME) XL diapers XL See Rx Instructions .Route .MEDSUPPLY Qty: 60 11RF Rx Instructions: As directed (DME) disposable gloves Misc See Rx Instructions .Route Qty: 1000 11RF Rx Instructions: As directed (DME) 4x4 lite hydrocellular foam dressings 4x4 See Rx Instructions .Route .MEDSUPPLY Qty: 30 11RF Rx Instructions: adhesive with 1 inch border levothyroxine [Synthroid] 88 mcg tablet 88 mcg PO DAILY@1030 Qty: 30 3RF lamotrigine 25 mg tablet, chewable dispersible 25 mg PO BID Qty: 60 3RF silver sulfadiazine 1 % cream 1 appl topical DAILY Qty: 85 3RF Rx Instructions: apply a 1.5 mm thickness silver sulfadiazine 1 % cream 1 appl topical BID Qty: 400 11RF Rx Instructions: apply a 1.5 mm thickness levalbuterol HCl 1.25 mg/3 mL solution for nebulization 1.25 mg inhalation Q4-6H PRN (Reason: for wheezing) 90 Days Qty: 1620 0RF sertraline 20 mg/mL concentrate 30 mg PO DAILY Qty: 60 3RF tobramycin 0.3 % drops 2 drp ophthalmic (eye) Q4H Qty: 5 0RF Nayzilam 5 mg/spray (0.1 mL) spray,non-aerosol 5 mg intranasal DAILY PRN (Reason: Seizure Activity) acetaminophen [Tylenol] 325 mg Tablet 650 mg PO BEDTIME levetiracetam 100 mg/mL solution 50 mg PO DAILY@0400 polyethylene glycol 3350 [Miralax] 17 gram Powder In Packet 17 g PO DAILY levetiracetam [Keppra] 100 mg/mL Solution 1,350 mg PO BEDTIME@2030 Lactobacillus acidophilus 0.5 mg (100 million cell) tablet 3 tab PO DAILY donepezil 10 mg tablet,disintegrating 10 mg PO DAILY memantine 10 mg tablet 10 mg PO DAILY nystatin 100,000 unit/gram powder 1 appl topical QID Qty: 60 3RF ipratropium bromide 21 mcg (0.03 %) spray,non-aerosol 2 spray intranasal BEDTIME
[2023-07-11 19:46] VITALS: BP 120/52; PULSE 66; RESP 17; TEMP 36.3; O2SAT 97
== END 2023-07-11 21:06 | disposition home or self-care (01) ==
PROVIDERS: Emergency Provider Student in an Organized Health Care Education/Training Program
DX: Z43.1 Encounter for attention to gastrostomy (principal); I50.30 Unspecified diastolic (congestive) heart failure; G40.909 Epilepsy, unspecified, not intractable, without status epilepticus; F03.90 Unspecified dementia, unspecified severity, without behavioral disturbance, psychotic disturbance, mood disturbance, and anxiety; Q90.9 Down syndrome, unspecified; Z79.899 Other long term (current) drug therapy
CPT/HCPCS: 99284

== ENCOUNTER 2023-07-12 13:55 | Outpatient (AMB) | payer OTHER, SELFPAY ==
--- NOTE | 2023-07-12 13:55 | MHC.PC.OV ---
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 Printing Shop Required: No Allergies fentanyl [FENTANYL] Allergy (Intermediate, Verified 07/12/23 13:57) UNKNOWN codeine [CODEINE] Allergy (Unknown, Verified 07/12/23 13:57) UNKNOWN lorazepam [From ATIVAN] Allergy (Unknown, Verified 07/12/23 13:57) UNKNOWN oxcarbazepine [OXCARBAZEPINE] Allergy (Unknown, Verified 07/12/23 13:57) UNKNOWN penicillin V Allergy (Unknown, Verified 07/12/23 13:57) Unknown Penicillins [PENICILLINS] Allergy (Unknown, Verified 07/12/23 13:57) DIFFICULTY BREATHING Sulfa (Sulfonamide Antibiotics) [SULFA (SULFONAMIDE ANTIBIOTICS)] Allergy (Unknown, Verified 07/12/23 13:57) DIFFICULTY BREATHING levofloxacin [From LEVAQUIN] Adverse Reaction (Intermediate, Verified 07/12/23 13:57) hallucinations doxycycline Adverse Reaction (Mild, Verified 07/12/23 13:57) Diarrhea Tobacco use date assessed: 07/12/23 Dental Screening Dental Screen Date: 07/12/23 HPI Follow up HPI Details 62-year-old female with down syndrome history of obstructive sleep apnea G-tube feedings seizure disorder calling in for follow-up. this is the 1st time I am seeing the patient form was given to me to describe the wounds on her gluteal area and there coming in through Telehealth. Denise sister on the phone. presently patient is sleeping. history on aspiration pneumonia, hence placed on aspiration. has pressure sores bilateral gluteal area. placed on silver sulfadiazide. Patient is mostly on the bed, has a nora lift for the most - not able to move. last seizures petit mal am - Dr. Bennett. last grandmal 2022. temp 97.8 96 % O2 sat HR 69 PFSH Medical History (Updated 07/12/23 @ 15:[address]stevez MD) Physical deconditioning Tracheobronchitis G tube feedings Diastolic heart failure Pneumonia MSSA bacteremia Unspecified skin changes Seizure disorder Respiratory distress Aspiration into airway Dysphagia Dementia Toxic metabolic encephalopathy Epilepsy Hypoxemia Dysphagia causing pulmonary aspiration with swallowing LEONIE on CPAP Down syndrome Surgical History History of back surgery Social History Household Members: Family Household Members Other:: sister Housing: House Do you presently have visiting nurse or other home services: Yes Alcohol intake: never Comment: family member in room Patient Tobacco Use Status: Never used Tobacco e-Cigarette/Vaping Use: Never Used Second Hand Smoke Exposure: No Advance Directives Date on File: 06/18/23 service: No Current occupational status: disabled Cognitive needs: No Hearing needs: No Vision needs: No Questionnaire PHQ-9 Over the last 2 weeks, how often have you been bothered by any of the following problems? 1. Little interest or pleasure in doing things: not at all 2. Feeling down, depressed, or hopeless: not at all 3. Trouble falling or staying asleep, or sleeping too much: not at all 4. Feeling tired or having little energy: not at all 5. Poor appetite or overeating: not at all 6. Feeling bad about yourself - or that you are a failure or have let yourself or your family down: not at all 7. Trouble concentrating on things, such as reading the newspaper or watching television: not at all 8. Moving or speaking so slowly that other people could have noticed. Or the opposite - being so fidgety or restless that you have been moving around a lot more than usual: not at all 9. Thoughts that you would be better off or of hurting yourself in some way: not at all Total score: 0 Depression Screening Interpretation: Negative Depression Screening Done: Yes Source: Developed by Drs. Carlo Donaldson, Danielle Wallace, Eber Lindquist and colleagues, with an educational danna from [employer]. Thrive Questionnaire Date Thrive assessed: 07/12/23 I am a: Parent/Caregiver What is your living situation today?: I have a steady place to live Within the past 12 months, did the food you bought not last and you didn't have the money to get more?: Never true Within the past 12 months, did you worry whether your food would run out before you got money to buy more?: Never true Do you have trouble paying for medicines?: No Do you have trouble getting transportation to medical appointments?: No Do you have trouble paying your heating and electricity bill?: No Do you have trouble taking care of your child, family member or friend?: No Do you have trouble with day-to-day activities such as bathing, preparing meals, shopping, managing finances, etc.?: No Are you currently unemployed and looking for a job?: No Are you interested in more education?: No Please select the resources that you would like help with: None THRIVE Score: 0 AUDIT C Alcohol Use Questionnaire (AUDIT-C) 1. How often do you have a drink containing alcohol?: Never 3. How often do you have six or more drinks on one occasion?: Never Total Score: 0 ANIYAH-7 AMB Questionnaire ANIYAH-7 Date ANIYAH - 7 assessed: 07/12/23 Feeling nervous, anxious, or on edge: 0 = Not at all Not being able to stop or control worryin = Not at all Worrying too much about different things: 0 = Not at all Trouble relaxin = Not at all Being so restless that it is hard to sit still: 0 = Not at all Becoming easily annoyed or irritable: 0 = Not at all Feeling afraid as if something awful might happen: 0 = Not at all Total ANIYAH-7 score (0-4 normal; 5-9 mild; 10-14 moderate; 15-21 severe): 0 Source: Developed by Drs. Carlo Donaldson, Danielle Wallace, Eber Lindquist and colleagues, with an educational danna from [employer]. Physical exam (Primary Care) Tobacco/Smoking Status: Tobacco use Status Tobacco use date assessed 07/12/23 07/12/23 14:03 Patient Tobacco Use Status Never used Tobacco 07/12/23 14:03 e-Cigarette/Vaping Use Never Used 07/12/23 14:03 PHQ-9: PHQ-9 Score PHQ-9: Total score 0 07/12/23 14:03 Depression Screening Interpretation: Negative Thrive Assessment: Date of Thrive Assessment Date Thrive assessed 07/12/23 07/12/23 14:03 Telehealth Telehealth Location of provider rendering services: practice address Location of patient: address on file Patient Identification confirmed using: Name, : Yes Telehealth method: video (iphone ) Patient verbally consented to treatment: Yes Patient verbally consented to billing insurance company: Yes Patient informed of any privacy concerns related to visit: Yes Minutes spent on Phone/Video with Pt.: 25 Assessment and Plan Assessment & Plan (1) Pressure ulcer of right buttock, stage 2: Comment: 1 inch x inch Code(s): L89.312 - Pressure ulcer of right buttock, stage 2 Plan: patient is asleep (2) Pressure ulcer of left buttock, stage 2: Comment: 1 inch by inch Code(s): L89.322 - Pressure ulcer of left buttock, stage 2 Plan: patient is asleep gluteal area (3) G tube feedings: Comment: Jevity 1.0 75/ML/ hr continuous Code(s): Z93.1 - Gastrostomy status Plan: g tube due to repeated aspirations (4) LEONIE on CPAP: Comment: This patient has long-standing history of obstructive sleep apnea and the sister puts on the CPAP every night, so that she can sleep well. Code(s): G47.33 - Obstructive sleep apnea (adult) (pediatric); Z99.89 - Dependence on other enabling machines and devices Plan: sleeping 12 hours with the CPAP and benefitting from this (5) Down syndrome: Comment: NEEDS FULL CARE 26/12 OLDER SISTER PROVIDES V BELT INSPECTOR CARE , AN EXCELLENT WORK, AND I DID COMMEND THE SISTER FOR PROVIDING EXCELLENT CARE. Code(s): Q90.9 - Down syndrome, unspecified Coding Level of Care Code Tele Est Pt Level 4 (17086) Diagnoses Pressure ulcer of right buttock, stage 2 L89.312 Pressure ulcer of left buttock, stage 2 L89.322 G tube feedings Z93.1 LEONIE on CPAP G47.33; Z99.89 Down syndrome Q90.9
== END 2023-07-12 15:47 | disposition home or self-care (01) ==
LOC: HO.HMGH 13:55
PROVIDERS: Visit Provider Internal Medicine
DX: L89.312 Pressure ulcer of right buttock, stage 2 (principal); L89.322 Pressure ulcer of left buttock, stage 2; Z93.1 Gastrostomy status; G47.33 Obstructive sleep apnea (adult) (pediatric); Z99.89 Dependence on other enabling machines and devices; Q90.9 Down syndrome, unspecified
CPT/HCPCS: 99214

== ENCOUNTER 2023-09-18 15:58 | Outpatient (AMB) | payer OTHER, SELFPAY ==
[2023-09-18 16:06] VITALS: BP 100/60; PULSE 60
--- NOTE | 2023-09-18 16:06 | A.OFFPC_ITS ---
Vital Signs 09/18/23 16:06 Height 4 ft 6 in BMI Reason not done Patient refused/unable BP 100/60 Blood Pressure Location Lt brachial Position Sitting Pulse 60 Pulse Source Pulse Oximeter Oxygen Delivery Method Room Air Intake Visit Reasons: Follow up Intake Note: Patient is here to follow up Transit Manager Required: No Allergies fentanyl [FENTANYL] Allergy (Intermediate, Verified 09/18/23 16:06) UNKNOWN codeine [CODEINE] Allergy (Unknown, Verified 09/18/23 16:06) UNKNOWN lorazepam [From ATIVAN] Allergy (Unknown, Verified 09/18/23 16:06) UNKNOWN oxcarbazepine [OXCARBAZEPINE] Allergy (Unknown, Verified 09/18/23 16:06) UNKNOWN penicillin V Allergy (Unknown, Verified 09/18/23 16:06) Unknown Penicillins [PENICILLINS] Allergy (Unknown, Verified 09/18/23 16:06) DIFFICULTY BREATHING Sulfa (Sulfonamide Antibiotics) [SULFA (SULFONAMIDE ANTIBIOTICS)] Allergy (Unknown, Verified 09/18/23 16:06) DIFFICULTY BREATHING levofloxacin [From LEVAQUIN] Adverse Reaction (Intermediate, Verified 09/18/23 16:06) hallucinations doxycycline Adverse Reaction (Mild, Verified 09/18/23 16:06) Diarrhea Medication List - Last Reconciled 09/18/[address]stevez MD [nitro gloves size medium As directed] [4x4 lite hydrocellular foam dressings adhesive with 1 inch border ] [60 cc syringes As directed] [60 cc syringes As directed] [500ml bottle saline 18 per month As directed] acetaminophen (Tylenol) 650 mg PO BEDTIME azithromycin take 12.5 mL (500 mg) by mouth today (day 1), then 6.25 mL (250 mg) daily for 4 days (days 2-5) PO [commode liners As directed] disposable gloves As directed donepezil 10 mg PO DAILY guaifenesin 400 mg (10 mL) PO Q4H PRN 45 days guaifenesin (Marla-Tussin) 200 mg (10 mL) PO Q4H PRN ipratropium bromide 2 sprays intranasal BEDTIME lacosamide (Vimpat) 100 mg PO BEDTIME@2030 Lactobacillus acidophilus 3 tabs PO DAILY lamotrigine 25 mg PO BID levalbuterol HCl 1.25 mg (3 mL) inhalation Q4-6H PRN 90 days levetiracetam (Keppra) 1,350 mg PO BEDTIME@2030 levetiracetam (Keppra) 200 mg (2 mL) feeding tube DAILY@0900 levetiracetam 2 cc in am , 3 cc as needed 14 cc at night orally; memantine 10 mg PO DAILY midazolam (Nayzilam) 5 mg intranasal DAILY PRN nystatin 1 appl topical QID omeprazole magnesium (Prilosec) 20 mg PO DAILY omeprazole-sodium bicarbonate 2-84 mg/mL (Konvomep) 10 mL PO DAILY polyethylene glycol 3350 (Miralax) 17 grams PO DAILY [ready bath wipes As directed] sertraline 30 mg (1.5 mL) PO DAILY silver sulfadiazine 1% 1 appl topical DAILY silver sulfadiazine 1% 1 appl topical BID sodium chloride 0.9% (Wound Wash Saline) 1 appl topical QID PRN Synthroid (levothyroxine) 88 mcg PO DAILY@1030 NS tobramycin 0.3% 2 drps ophthalmic (eye) Q4H [XL diapers As directed] zinc oxide 40% (Boudreauxs Butt Paste) 1 appl topical BID-QID PRN Tobacco use date assessed: 09/18/23 Dental Screening Dental Screen Date: 07/12/23 HPI Follow up HPI Details 63-year-old female with a history of sei zures Down syndrome obstructive sleep apnea history of aspiration pneumonia having G-tube feedings and having pressure ulcers coming in for follow-up. This is the 1st time I am seeing the patient [facility] Medical History (Updated 09/18/23 @ 17:[address]stevez MD) Physical deconditioning Tracheobronchitis G tube feedings Diastolic heart failure Pneumonia MSSA bacteremia Unspecified skin changes Seizure disorder Respiratory distress Aspiration into airway Dysphagia Dementia Toxic metabolic encephalopathy Epilepsy Hypoxemia Dysphagia causing pulmonary aspiration with swallowing LEONIE on CPAP Down syndrome Surgical History History of back surgery Social History Household Members: Family Household Members Other:: sister Housing: House Do you presently have visiting nurse or other home services: Yes Alcohol intake: never Comment: family member in room Patient Tobacco Use Status: Never used Tobacco e-Cigarette/Vaping Use: Never Used Second Hand Smoke Exposure: No Advance Directives Date on File: 06/18/23 service: No Current occupational status: disabled Cognitive needs: No Hearing needs: No Vision needs: No Questionnaire Thrive Questionnaire Date Thrive assessed: 07/12/23 AUDIT C Alcohol Use Questionnaire (AUDIT-C) 1. How often do you have a drink containing alcohol?: Never 3. How often do you have six or more drinks on one occasion?: Never Total Score: 0 ANIYAH-7 AMB Questionnaire ANIYAH-7 Date ANIYAH - 7 assessed: 07/12/23 Source: Developed by Drs. Carlo Donaldson, Danielle Wallace, Eber Lindquist and colleagues, with an educational danna from [employer]. Physical exam (Primary Care) Vital Signs: Last Vital Signs Pulse 60 09/18/23 16:06 BP 100/60 09/18/23 16:06 Oxygen Delivery Method Room Air 09/18/23 16:06 Tobacco/Smoking Status: Tobacco use Status Tobacco use date assessed 09/18/23 09/18/23 16:07 Patient Tobacco Use Status Never used Tobacco 09/18/23 16:07 e-Cigarette/Vaping Use Never Used 09/18/23 16:07 Thrive Assessment: Date of Thrive Assessment Date Thrive assessed 07/12/23 09/18/23 16:07 Const General: No acute distress Eyes Conjunctivae: conjunctivae normal Resp Auscultation: clear to auscultation bilaterally Cardio Rate: regular rate Rhythm: regular rhythm GI Inspection: Yes normal to inspection Assessment and Plan Assessment & Plan (1) Down syndrome: Comment: NEEDS FULL CARE 26/12 OLDER SISTER PROVIDES MACHINE BURRER CARE , AN EXCELLENT WORK, AND I DID COMMEND THE SISTER FOR PROVIDING EXCELLENT CARE. Code(s): Q90.9 - Down syndrome, unspecified (2) Epilepsy: Comment: Controlled with meds, follows up with Neurology. Code(s): G40.909 - Epilepsy, unspecified, not intractable, without status epilepticus (3) G tube feedings: Comment: Jevity 1.0 75/ML/ hr continuous Code(s): Z93.1 - Gastrostomy status (4) Pressure ulcer of left buttock, stage 2: Comment: 2 inch by 1 inch Code(s): L89.322 - Pressure ulcer of left buttock, stage 2 Plan: no open sound but red on area (5) Pressure ulcer of right buttock, stage 2: Comment: 1 inch x inch Code(s): L89.312 - Pressure ulcer of right buttock, stage 2 Plan: no open sound but redness withy mild desquation Medications: New [4x4 LITE Hydrocellular foam dressing] As directed 100 ea 12RF L89.322 - Pressure ulcer of left buttock, stage 2 [silicone foam dressing 4x 8] As directed 100 ea 12RF L89.322 - Pressure ulcer of left buttock, stage 2 [cahdesene baby powder (zinc, aloe, camomile)] As directed 1 ea 12RF L89.322 - Pressure ulcer of left buttock, stage 2 [BUTT PASTE] As directed 1 ea 12RF L89.322 - Pressure ulcer of left buttock, stage 2 [chucks 30 x 36] As directed 30 ea 12RF L89.322 - Pressure ulcer of left buttock, stage 2 lidocaine HCl 4% (Aspercreme (lidocaine HCl)) 1 appl topical Q8H PRN 120 grams 12RF pain L89.322 - Pressure ulcer of left buttock, stage 2 [CONVATEC ALOE VESTA CLEANSING FOAM] As directed 1 ea 12RF L89.322 - Pressure ulcer of left buttock, stage 2 [heavy ABSORBENCY BED PADS 36x54] As directed 30 ea 12RF L89.322 - Pressure ulcer of left buttock, stage 2 Refilled [60 cc syringes] As directed 8 ea 0RF Z93.1 - Gastrostomy status [nitro gloves size medium] As directed 1 ea 11RF L89.312 - Pressure ulcer of right buttock, stage 2 azithromycin take 12.5 mL (500 mg) by mouth today (day 1), then 6.25 mL (250 mg) daily for 4 days (days 2-5) PO 30 mL 0RF bronchitis [60 cc syringes] As directed 1 ea 11RF L89.312 - Pressure ulcer of right buttock, stage 2 Coding Level of Care Code Est Pt Level 4 (31447) Diagnoses Down syndrome Q90.9 Epilepsy G40.909 G tube feedings Z93.1 Pressure ulcer of left buttock, stage 2 L89.322 Pressure ulcer of right buttock, stage 2 L89.312
== END 2023-09-18 17:20 | disposition home or self-care (01) ==
PROVIDERS: PCP Internal Medicine; Visit Provider Internal Medicine
DX: G40.909 Epilepsy, unspecified, not intractable, without status epilepticus (principal); Z93.1 Gastrostomy status; L89.322 Pressure ulcer of left buttock, stage 2; L89.312 Pressure ulcer of right buttock, stage 2; Q90.9 Down syndrome, unspecified
CPT/HCPCS: 99214

== ENCOUNTER 2023-10-31 12:58 | Outpatient (REF) | payer OTHER, SELFPAY ==
[2023-10-31 13:08] VITALS: BP 103/57; PULSE 66; RESP 16; TEMP 36.1; O2SAT 98; BMI 31.3
--- NOTE | 2023-10-31 14:41 | OP_ITS ---
DATE OF SERVICE: 10/31/2023 SURGEON: Michael Sevilla MD INDICATIONS: G-tube malfunction. PREOPERATIVE DIAGNOSIS: POSTOPERATIVE DIAGNOSIS: PROCEDURE PERFORMED: G-tube change. ESTIMATED BLOOD LOSS: COMPLICATIONS: ANESTHESIA: None. ASSISTANTS: SPECIMENS: DESCRIPTION OF PROCEDURE: A history and physical was performed. The risks and benefits of the procedure were explained to the patient's sister and informed consent was obtained. The patient was placed supine in the minor surgery room. The old G-tube site was identified and appeared intact. The balloon was deflated. The tube was removed from the patient by gentle traction and a 20-Vincentian replacement G-tube was inserted along the G-tube tract with no immediate complications. Intragastric placement was confirmed. The balloon was inflated with 10 cc of saline and the G-tube was flushed. Next, a dry sterile dressing was applied. IMPRESSION: G-tube replacement. RECOMMENDATION: Follow up as needed. MD KEESHA Barron/NENAL / [id number] MTDD
== END 2023-10-31 12:59 | disposition home or self-care (01) ==
LOC: HO.MS 12:58
PROVIDERS: PCP Internal Medicine; Visit Provider Internal Medicine Gastroenterology
PROC: (CPT 43762; principal; 2023-10-31 13:40)
DX: K94.23 Gastrostomy malfunction (principal)
CPT/HCPCS: 43762

== ENCOUNTER 2023-11-09 13:31 | Outpatient (AMB) | payer OTHER, SELFPAY ==
[2023-11-09 13:34] VITALS: BP 124/84; PULSE 78; O2SAT 95
--- NOTE | 2023-11-09 13:34 | A.OFFPC_ITS ---
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 Allergies fentanyl [FENTANYL] Allergy (Intermediate, Verified 09/18/23 16:06) UNKNOWN codeine [CODEINE] Allergy (Unknown, Verified 09/18/23 16:06) UNKNOWN lorazepam [From ATIVAN] Allergy (Unknown, Verified 09/18/23 16:06) UNKNOWN oxcarbazepine [OXCARBAZEPINE] Allergy (Unknown, Verified 09/18/23 16:06) UNKNOWN penicillin V Allergy (Unknown, Verified 09/18/23 16:06) Unknown Penicillins [PENICILLINS] Allergy (Unknown, Verified 09/18/23 16:06) DIFFICULTY BREATHING Sulfa (Sulfonamide Antibiotics) [SULFA (SULFONAMIDE ANTIBIOTICS)] Allergy (Unknown, Verified 09/18/23 16:06) DIFFICULTY BREATHING levofloxacin [From LEVAQUIN] Adverse Reaction (Intermediate, Verified 09/18/23 16:06) hallucinations doxycycline Adverse Reaction (Mild, Verified 09/18/23 16:06) Diarrhea Tobacco use date assessed: 09/18/23 Dental Screening Dental Screen Date: 07/12/23 HPI 4 month f/u HPI Details 63-year-old female with a 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 Review of the notes did see gastroenterology 10/23/2023 for malfunction of the G- tube and replacement done., back again asking for help at home to move her to prevent sores, states no supplies also. Spoke to biomedical equipment technician who has faxed over the supplies to [employer] and will follow-up on this. As for [facility] left message again for them to work out some aide to come to their house. Patient is in [place] and the problem of having the aid go to their house. ON LICENSE OF [facility] Medical History (Updated 09/27/23 @ 15:[address] Estevez MD) Physical deconditioning Tracheobronchitis G tube feedings Diastolic heart failure Pneumonia MSSA bacteremia Unspecified skin changes Seizure disorder Respiratory distress Aspiration into airway Dysphagia Dementia Toxic metabolic encephalopathy Epilepsy Hypoxemia Dysphagia causing pulmonary aspiration with swallowing LEONIE on CPAP Down syndrome Surgical History History of back surgery Social History Household Members: Family Household Members Other:: sister Housing: House Do you presently have visiting nurse or other home services: Yes Alcohol intake: never Comment: family member in room Patient Tobacco Use Status: Never used Tobacco e-Cigarette/Vaping Use: Never Used Second Hand Smoke Exposure: No Advance Directives Date on File: 06/18/23 service: No Current occupational status: disabled Cognitive needs: No Hearing needs: No Vision needs: No Questionnaire Thrive Questionnaire Date Thrive assessed: 07/12/23 ANIYAH-7 AMB Questionnaire ANIYAH-7 Date ANIYAH - 7 assessed: 07/12/23 Source: Developed by Drs. Carlo Donaldson, Danielle Wallace, Eber Lindquist and colleagues, with an educational danna from [employer]). Physical exam (Primary Care) Vital Signs: Last Vital Signs Pulse 78 11/09/23 13:34 BP 124/84 11/09/23 13:34 Pulse Ox 95 11/09/23 13:34 Oxygen Delivery Method Room Air 11/09/23 13:34 Tobacco/Smoking Status: Tobacco use Status Tobacco use date assessed 09/18/23 11/09/23 13:34 Patient Tobacco Use Status Never used Tobacco 11/09/23 13:34 e-Cigarette/Vaping Use Never Used 11/09/23 13:34 Thrive Assessment: Date of Thrive Assessment Date Thrive assessed 07/12/23 11/09/23 13:34 Const General: No acute distress Eyes Conjunctivae: conjunctivae normal Resp Auscultation: clear to auscultation bilaterally Cardio Rate: regular rate Rhythm: regular rhythm GI Inspection: Yes normal to inspection Assessment and Plan Assessment & Plan (1) Pressure ulcer of right buttock, stage 2: Comment: 1 inch x inch Code(s): L89.312 - Pressure ulcer of right buttock, stage 2 Plan: Working on getting aid to help in the house of the patient. (2) Pressure ulcer of left buttock, stage 2: Comment: 2 inch by 1 inch Code(s): L89.322 - Pressure ulcer of left buttock, stage 2 Plan: Following up with [facility] regarding this problem (3) G tube feedings: Comment: Jevity 1.0 75/ML/ hr continuous Code(s): Z93.1 - Gastrostomy status Plan: Supplies printed and sent to [facility] before and will follow-up on this. (4) Down syndrome: Comment: NEEDS FULL CARE 26/12 OLDER SISTER PROVIDES DIAMOND MOUNTER CARE , AN EXCELLENT WORK, AND I DID COMMEND THE SISTER FOR PROVIDING EXCELLENT CARE. Code(s): Q90.9 - Down syndrome, unspecified Coding Level of Care Code Est Pt Level 4 (80136) Diagnoses Pressure ulcer of right buttock, stage 2 L89.312 Pressure ulcer of left buttock, stage 2 L89.322 G tube feedings Z93.1 Down syndrome Q90.9
== END 2023-11-09 15:18 | disposition home or self-care (01) ==
PROVIDERS: PCP Internal Medicine; Visit Provider Internal Medicine
DX: L89.312 Pressure ulcer of right buttock, stage 2 (principal); L89.322 Pressure ulcer of left buttock, stage 2; Z93.1 Gastrostomy status; Q90.9 Down syndrome, unspecified
CPT/HCPCS: 99214

== ENCOUNTER 2023-11-29 15:22 | Outpatient (AMB) | payer OTHER, SELFPAY ==
--- NOTE | 2023-11-29 15:23 | MHC.OFFVIS ---
Vital Signs 11/29/23 15:23 Height 4 ft 10 in Intake Visit Reasons: COPD Intake Note: pt is on the phone with her dog warden (her sister) for a follow up and states she is doing okay at this time, still has refills on her antibiotic that she did not use yet. pt had 2nd dose in bag and did not use this and had to throw it away, so only 1 refill is left. Patient Ambassador Required: No Allergies fentanyl [FENTANYL] Allergy (Intermediate, Verified 11/29/23 15:37) UNKNOWN codeine [CODEINE] Allergy (Unknown, Verified 11/29/23 15:37) UNKNOWN lorazepam [From ATIVAN] Allergy (Unknown, Verified 11/29/23 15:37) UNKNOWN oxcarbazepine [OXCARBAZEPINE] Allergy (Unknown, Verified 11/29/23 15:37) UNKNOWN penicillin V Allergy (Unknown, Verified 11/29/23 15:37) Unknown Penicillins [PENICILLINS] Allergy (Unknown, Verified 11/29/23 15:37) DIFFICULTY BREATHING Sulfa (Sulfonamide Antibiotics) [SULFA (SULFONAMIDE ANTIBIOTICS)] Allergy (Unknown, Verified 11/29/23 15:37) DIFFICULTY BREATHING levofloxacin [From LEVAQUIN] Adverse Reaction (Intermediate, Verified 11/29/23 15:37) hallucinations doxycycline Adverse Reaction (Mild, Verified 11/29/23 15:37) Diarrhea Medication List - Last Reconciled 11/29/23 by Sommer Whitlock MD [nitro gloves size medium As directed] [4x4 LITE Hydrocellular foam dressing As directed] [4x4 lite hydrocellular foam dressings adhesive with 1 inch border ] [10cc syringes As directed] [60 cc syringes As directed] [60 cc syringes As directed] [500ml bottle saline 18 per month As directed] acetaminophen (Tylenol) 650 mg PO BEDTIME azithromycin 500 mg (12.5 mL) PO DAILY 5 days [BUTT PASTE As directed] [cahdesene baby powder (zinc, aloe, camomile) As directed] cefpodoxime 200 mg (10 mL) PO BID 10 days cefpodoxime 200 mg (10 mL) PO BID 10 days [chucks 30 x 36 As directed] [commode liners As directed] [CONVATEC ALOE VESTA CLEANSING FOAM As directed] disposable gloves As directed donepezil 10 mg PO DAILY guaifenesin 400 mg (10 mL) PO Q4H PRN 45 days guaifenesin (Marla-Tussin) 200 mg (10 mL) PO Q4H PRN [heavy ABSORBENCY BED PADS 36x54 As directed] ipratropium bromide 2 sprays intranasal BEDTIME lacosamide (Vimpat) 100 mg PO BEDTIME@2030 Lactobacillus acidophilus 3 tabs PO DAILY lamotrigine 25 mg PO BID levalbuterol HCl 1.25 mg (3 mL) inhalation Q4-6H PRN 90 days levetiracetam (Keppra) 1,350 mg PO BEDTIME@2030 levetiracetam 2 cc in am , 3 cc as needed 14 cc at night orally; levetiracetam (Keppra) 200 mg (2 mL) feeding tube DAILY@0900 lidocaine HCl 4% (Aspercreme (lidocaine HCl)) 1 appl topical Q8H PRN memantine 10 mg PO DAILY midazolam (Nayzilam) 5 mg intranasal DAILY PRN nystatin 1 appl topical QID omeprazole magnesium 5 mg PO DAILY 30 days polyethylene glycol 3350 (Miralax) 17 grams PO DAILY [ready bath wipes As directed] sertraline 30 mg (1.5 mL) PO DAILY [silicone foam dressing 4x 8 As directed] silver sulfadiazine 1% 1 appl topical DAILY silver sulfadiazine 1% 1 appl topical BID sodium chloride 0.9% (Wound Wash Saline) 1 appl topical QID PRN Synthroid (levothyroxine) 88 mcg PO DAILY@1030 NS tobramycin 0.3% 2 drps ophthalmic (eye) Q4H [XL diapers As directed] zinc oxide 40% (Boudreauxs Butt Paste) 1 appl topical BID-QID PRN Do you need a note to return to daycare/school/sports/work: No HPI HPI COPD: Details: TELE VISIT, CONDUCTED FOR EDEN, HER SISTER TOSHIA WHO IS THE SOLE BANK SALES AND SERVICE MANAGER, WAS TALKING OVER THE TELEPHONE. SHE STATES THAT EDEN IS DOING FAIRLY WELL AT THIS TIME. SHE DOES HAVE SECRETIONS BUILD UP IN HER THROAT EVERY NOW AND THEN REQUIRING SUCTIONING, BUT LUCKILY SHE HAS HAD NO ASPIRATION PNEUMONIA. HER BREATHING HAS BEEN FREE OF ANY DISTRESS. SHE DOES GET CONGESTED OFF AND ON . IF SHE STARTS RUNNING ANY FEVER SHE IS USUALLY TREATED WITH THE A COURSE OF AZITHROMYCIN SUSPENTION . . TOSHIA WANTED TO MAKE SURE THAT SHE CAN GET THE ANTIBIOTIC PRESCRIBED WHEN NEEDED, IT IS DIFFICULT TO BRING COME TO THE OFFICE . [facility] Medical History Physical deconditioning Tracheobronchitis G tube feedings Diastolic heart failure Pneumonia MSSA bacteremia Unspecified skin changes Seizure disorder Respiratory distress Aspiration into airway Dysphagia Dementia Toxic metabolic encephalopathy Epilepsy Hypoxemia Dysphagia causing pulmonary aspiration with swallowing LEONIE on CPAP Down syndrome Surgical History History of back surgery Social History Household Members: Family Household Members Other:: sister Housing: House Do you presently have visiting nurse or other home services: Yes Alcohol intake: never Comment: family member in room Patient Tobacco Use Status: Never used Tobacco e-Cigarette/Vaping Use: Never Used Second Hand Smoke Exposure: No Advance Directives Date on File: 06/18/23 service: No Current occupational status: disabled Cognitive needs: No Hearing needs: No Vision needs: No Review of Systems Const Details: NOTED ABOVE IN HPI Physical Exam Vital Signs: TELE VISIT- NO PHYSICAL EXAMINATION. Telehealth Telehealth Telehealth Platform: Telephone Location of provider rendering services: practice address Location of patient: address on file Patient Identification confirmed using: Name, : Yes Telehealth method: voice only Patient verbally consented to treatment: Yes Patient verbally consented to billing insurance company: Yes Patient informed of any privacy concerns related to visit: Yes Minutes spent on Phone/Video with Pt.: 15 Assessment & Plan Assessment & Plan (1) Down syndrome: Comment: NEEDS FULL CARE 26/12 OLDER SISTER PROVIDES CHIEF SCHOOL FINANCE OFFICER CARE , AN EXCELLENT WORK, AND I DID COMMEND THE SISTER FOR PROVIDING EXCELLENT CARE. Code(s): Q90.9 - Down syndrome, unspecified Category: Medical Plan: CARE DISCUSSED WITH TOSHIA, COMMENDED FOR PROVIDING EXCELLENT CARE. ADVISED TO CONTINUE THE SAME AT THIS TIME. (2) LEONIE on CPAP: Comment: This patient has long-standing history of obstructive sleep apnea and the sister puts on the CPAP every night, so that she can sleep well. Code(s): G47.33 - Obstructive sleep apnea (adult) (pediatric); Z99.89 - Dependence on other enabling machines and devices Category: Medical Plan: CONTINUE CPAP THERAPY EVERY NIGHT KEEP ON GETTING SUPPLIES ON TIME. (3) Tracheobronchitis: Comment: Due to recurrent micro aspirations, she is prone to have recurrent tracheobronchitis. There is just no way to avoid it. The sister does frequent suctioning as needed. Sister is always worried about Eden getting pneumonia, she requests a course of antibiotics She also requests some Magic cough medication which could control her cough. We had a lengthy discussion. Code(s): J40 - Bronchitis, not specified as acute or chronic Category: Medical Plan: [place] : For cough Marla-tussin liquid 200 mg in 10 ml, q 6 hrs ( This is a prescription med, paid by Insurance ) alternating with Mucinex( Guaifenesin 400 mg in 10 ml q 4-6 hrs PRN Discussed about antibiotics . She has allergy to PENICILLIN GROUP, SULPHAs DOXYCYCLINE LEVAQUIN . Can take CIPROFLOXCACILLIN , and Azithromycin ( Tabs crushed ) I will prescribe azithromycin 200 mg/ 5 ml suspension form . ( 500mg on day 1 and [id number] mg daily for 4 days ) Will reserve ciprofloxacin for more severe respiratory infection . Coding Level of Care Code Tele New Pt Level 4 (86105) Diagnoses Down syndrome Q90.9 LEONIE on CPAP G47.33; Z99.89 Tracheobronchitis J40
== END 2023-11-30 10:44 | disposition home or self-care (01) ==
LOC: HO.HPS 15:22
PROVIDERS: PCP Internal Medicine; Visit Provider Internal Medicine
DX: G47.33 Obstructive sleep apnea (adult) (pediatric) (principal); Z99.89 Dependence on other enabling machines and devices; J40 Bronchitis, not specified as acute or chronic; Q90.9 Down syndrome, unspecified
CPT/HCPCS: 99442

== ENCOUNTER → 2023-11-29 15:22 | Outpatient (BNVA) | payer OTHER, SELFPAY | PROVIDERS: PCP Internal Medicine; Visit Provider Internal Medicine ==

== ENCOUNTER 2023-12-28 16:18 | Emergency (ER) | payer OTHER, SELFPAY ==
--- NOTE | ~2023-12-28 | XR_ITS ---
EXAMINATION: PORTABLE CHEST 1 VIEW CLINICAL INFORMATION: shortness of breath. COMPARISON: 05/05/2022. TECHNIQUE: Portable frontal view of the chest was obtained. FINDINGS: Lungs well-expanded. Diffusely increased interstitial and vascular markings suggesting superimposed pulmonary edema on chronic changes. No significant effusion or pneumothorax. Cardiac silhouette remains prominent. No acute bony abnormality. XR/XR chest 1V IMPRESSION: Diffusely increased interstitial and vascular markings suggesting superimposed pulmonary edema on chronic changes.
[2023-12-28 16:40] VITALS: BP 115/68; BP 135/53; PULSE 70; PULSE 78; RESP 24; TEMP 36.1; O2SAT 94; O2SAT 96; BMI 34.9
[2023-12-28 16:45] VITALS: O2SAT 95
--- NOTE | 2023-12-28 17:11 | ED_ITS ---
HPI - General Adult General Chief complaint: General Medical Stated complaint: RASH SECONDARY TO STARTING NEW ANTIBIOTIC Time Seen by Provider: 12/28/23 16:32 Source: patient, family, RN notes reviewed and old records reviewed Mode of arrival: EMS Limitations: other (Patient is nonverbal) History of Present Illness ED Provider: Bashir HPI narrative: 63-year-old female with past medical history significant for Down syndrome, dementia, dysphagia, seizure history, aspiration pneumonia, LEONIE on CPAP, heart failure preserved ejection fraction, presents for evaluation of a rash. Per the patient's sister who is her primary caregiver, 13 days ago, the patient was placed on cefpodoxime by her manager nursing home due to increased cough The patient was not seen by her manager nursing home or any other medical providers Due to persistent diarrhea, the patient's sister stopped the cefpodoxime and reconsulted pulmonology who changed her to azithromycin. The patient again had further diarrhea and the azithromycin was stopped after 2 days. The patient has not been on any antibiotics for the last 2 days Her manager nursing home, was planning to restart the azithromycin as the patient has not had diarrhea for 2 days but the patient's sister noticed a rash The patient has a red rash elbow, abdomen right neck At this point it was recommended the patient come to the ER for evaluation The patient's sister states that her breathing appears to be at her baseline. Her activity level is at her baseline and she has not had fevers Related Data Home Medications ?Medication ?Instructions ?Recorded ?Confirmed ipratropium bromide 21 mcg (0.03 2 spray intranasal BEDTIME 10/21/20 11/29/23 %) nasal spray levetiracetam 100 mg/mL oral 1,350 mg PO BEDTIME@202910/09/21 11/29/23 solution (Keppra) acetaminophen 325 mg tablet 650 mg PO BEDTIME 02/25/22 11/29/23 (Tylenol) midazolam 5 mg/spray (0.1 mL) 5 mg intranasal DAILY PRN Seizure 02/25/22 11/29/23 nasal spray (Nayzilam) Activity polyethylene glycol 3350 17 gram 17 g PO DAILY 02/25/22 11/29/23 oral powder packet (Miralax) Lactobacillus acidophilus 0.5 mg 3 tab PO DAILY 04/26/22 11/29/23 (100 million cell) tablet donepezil 10 mg disintegrating 10 mg PO DAILY 01/02/23 11/29/23 tablet memantine 10 mg tablet 10 mg PO DAILY 03/03/23 11/29/23 lacosamide 10 mg/mL oral solution 100 mg PO BEDTIME@2030 09/18/23 11/29/23 (Vimpat) levetiracetam 100 mg/mL oral See Rx Instructions PO .COMPLEX 09/18/23 11/29/23 solution Previous Rx's ?Medication ?Instructions ?Recorded guaifenesin 200 mg/5 mL oral liquid 400 mg (10 mL) PO Q4H PRN cough 45 05/09/22 days #473 mL XL diapers #60 ea 01/30/23 commode liners #60 ea 01/30/23 zinc oxide 40 % topical ointment 1 appl topical BID-QID PRN skin 01/30/23 (Boudreauxs Butt Paste) irritation #113 grams silver sulfadiazine 1 % topical 1 appl topical BID #400 grams 04/12/23 cream silver sulfadiazine 1 % topical 1 appl topical DAILY #85 grams 04/12/23 cream tobramycin 0.3 % eye drops 2 drp ophthalmic (eye) Q4H #5 mL 08/05/23 sodium chloride 0.9 % topical 1 appl topical QID PRN skin 08/18/23 spray (Wound Wash Saline) cleansing #210 grams 500ml bottle saline 18 per month #18 ea 08/24/23 nystatin 100,000 unit/gram topical 1 appl topical QID #60 grams 09/07/23 powder 60 cc syringes #1 ea 09/18/23 CONVATEC ALOE VESTA CLEANSING FOAM #1 ea 09/18/23 lidocaine HCl 4 % topical cream 1 appl topical Q8H PRN pain #120 09/18/23 (Aspercreme (lidocaine HCl)) grams levetiracetam 100 mg/mL oral 200 mg (2 mL) feeding tube 09/20/23 solution (Keppra) DAILY@0900 #473 mL guaifenesin 100 mg/5 mL oral 200 mg (10 mL) PO Q4H PRN for 10/02/23 liquid (Marla-Tussin) cough #473 mL lamotrigine 25 mg chewable 25 mg PO BID #180 ea 10/12/23 dispersible tablet nitro gloves size medium #1 ea 10/18/23 cefpodoxime 100 mg/5 mL oral 200 mg (10 mL) PO BID 10 days #200 10/19/23 suspension mL sertraline 20 mg/mL oral 30 mg (1.5 mL) PO DAILY #60 mL 10/19/23 concentrate cefpodoxime 100 mg/5 mL oral 200 mg (10 mL) PO BID Respiratory 10/23/23 suspension infection 10 days #200 mL omeprazole magnesium 10 mg oral 5 mg PO DAILY 30 days #30 ea 10/24/23 suspension,delayed release 4x4 LITE Hydrocellular foam #100 ea 11/13/23 dressing 4x4 lite hydrocellular foam #30 ea 11/13/23 dressings 10cc syringes #1 ea 11/13/23 60 cc syringes #8 ea 11/13/23 BUTT PASTE #1 ea 11/13/23 cahdesene baby powder (zinc, aloe, #1 ea 11/13/23 camomile) chucks 30 x 36 #30 ea 11/13/23 disposable gloves #1,000 ea 11/13/23 heavy ABSORBENCY BED PADS 36x54 #30 ea 11/13/23 ready bath wipes #30 ea 11/13/23 silicone foam dressing 4x 8 #100 ea 11/13/23 levalbuterol HCl 1.25 mg/3 mL 1.25 mg (3 mL) inhalation Q4-6H 11/21/23 solution for nebulization PRN for wheezing 90 days #1,620 mL Synthroid 88 mcg tablet 88 mcg PO DAILY@1030 #30 tabs 11/30/23 (levothyroxine) azithromycin 200 mg/5 mL oral 500 mg (12.5 mL) PO DAILY 5 days 12/24/23 suspension #62.5 mL furosemide 20 mg tablet (Lasix) 20 mg PO DAILY #5 tabs 12/28/23 triamcinolone acetonide 0.05 % 1 appl topical BID 5 days #30 grams 12/28/23 topical ointment Allergies Allergy/AdvReac Type Severity Reaction Status Date / Time fentanyl [FENTANYL] Allergy Intermediate UNKNOWN Verified 12/28/23 16:44 codeine [CODEINE] Allergy Unknown UNKNOWN Verified 12/28/23 16:44 lorazepam [From ATIVAN] Allergy Unknown UNKNOWN Verified 12/28/23 16:44 oxcarbazepine [OXCARBAZEPINE] Allergy Unknown UNKNOWN Verified 12/28/23 16:44 penicillin V Allergy Unknown Unknown Verified 12/28/23 16:44 Penicillins [PENICILLINS] Allergy Unknown DIFFICULTY Verified 12/28/23 16:44 BREATHING Sulfa (Sulfonamide Allergy Unknown DIFFICULTY Verified 12/28/23 16:44 Antibiotics) BREATHING [SULFA (SULFONAMIDE ANTIBIOTICS)] levofloxacin [From LEVAQUIN] AdvReac Intermediate hallucinati Verified 12/28/23 16:44 ons doxycycline AdvReac Mild Diarrhea Verified 12/28/23 16:44 Review of Systems 2 Constitutional: Constitutional: Denies chills and Denies fever(s) Cardiovascular: Cardiovascular: Denies dyspnea Respiratory: Respiratory: Denies cough and Denies dyspnea Gastrointestinal: Gastrointestinal: Denies loose stools and Denies vomiting Integumentary/Breasts: Skin/Breast: Reports erythema and Reports rash PMFSH Past Medical History Medical History Physical deconditioning Tracheobronchitis G tube feedings Diastolic heart failure Pneumonia MSSA bacteremia Unspecified skin changes Seizure disorder Respiratory distress Aspiration into airway Dysphagia Dementia Toxic metabolic encephalopathy Epilepsy Hypoxemia Dysphagia causing pulmonary aspiration with swallowing LEONIE on CPAP Down syndrome Surgical History History of back surgery Social History Social History Household Members: Family Household Members Other:: sister Housing: House Do you presently have visiting nurse or other home services: Yes Alcohol intake: never Comment: family member in room Patient Tobacco Use Status: Never used Tobacco Smoked in Last 30 Days: No e-Cigarette/Vaping Use: Never Used Second Hand Smoke Exposure: No Use of substances other than those prescribed or required for medical reasons: No Advance Directives: Yes Advance Directives on File: Yes Advance Directives Date on File: 06/18/23 Do you have a plan to hurt others: No Plan service: No Current occupational status: disabled Cognitive needs: No Hearing needs: No Vision needs: No Physical Exam ED Vital Signs: Vital Signs - 24 hr 12/28/23 16:40 12/28/23 16:45 12/28/23 18:37 Temperature 96.9 F 96.9 F Pulse Rate 70 73 Respiratory Rate 24 H 16 Blood Pressure 135/53 L 129/61 Pulse Oximetry 94 95 99 Oxygen Delivery Method Room Air Nasal Cannula Room Air Oxygen Flow Rate 2 BMI result Body Mass Index 34.9 Const General: comfortable, no acute distress, alert and awake Nutritional Appearance: well nourished [facility] Head: Yes normocephalic and Yes atraumatic Eyes Eyelids: Yes eyelids normal Conjunctivae: conjunctivae normal Sclerae: sclerae normal Corneas: corneas normal Pupils: Equal, round and reactive pupils present EOM: EOMs intact bilaterally Neck Neck: Yes full ROM Resp Effort & Inspection: normal respiratory effort, able to speak in complete sentences and not labored Cardio Rate: regular rate Rhythm: regular rhythm GI Inspection: Yes G-tube present Palpation (GI): Soft to palpation, not firm, nontender, no guarding and not rigid Skin Other: Mild erythematous maculopapular rash to the right medial elbow, 1 small spot the right upper abdomen and the right neck. No open wounds General skin exam: elasticity normal Neuro Cranial nerves: Yes Equal, round and reactive pupils present and Yes Bilaterally intact EOM present Extrem Other: Moving all extremities well without any obvious deformities Course Reevaluation(s) Reevaluation #1: Patient's workup shows pulmonary edema. She does have CPAP at home and her manager nursing home has recommended 24/7 CPAP. Her vital signs have remained stable in the ER, she has no evidence of sepsis or pneumonia. We will treat the cough and shortness of breath with Lasix. Will give a dose in the ER and 3 days with to go home with. I also asked the patient's sister to cut her water intake by 25%. As far as the rash goes, it is more consistent with eczema which I discussed with the patient's sister. The patient has used hydrocortisone in the past with minimal relief. We will discharge her with triamcinolone. I instructed her not to use this on the patient's face Time: 19:45 Medications Administered Discontinued Medications Generic Name Dose Route Start Last Admin Trade Name Freq PRN Reason Stop Dose Admin Diphenhydramine HCl 50 mg 12/28/23 17:02 12/28/23 17:31 Diphenhydramine Hcl 25 Mg Capsule G-TUBE 12/28/23 17:03 Not Given ONCE ONE Medical Decision Making Medical Decision Making [facility] Narrative: 63-year-old female with past medical history as documented above presents for evaluation of a rash. She appears to be recovering from her shortness of breath and coughing 2 weeks ago. Plan for chest x-ray this has not been performed. Will check basic labs. The patient has not had any diarrhea in the last 2 days, so C diff it is favored to be less likely. Her rash appears consistent with eczema which the patient does have a history of. Will start with Benadryl 50 mg to the G-tube. There is no perioral, oral retropharyngeal edema, no stridor on exam I was graft is less likely. Per the patient's sister, the patient has had both cefpodoxime and azithromycin to not stick without rashes Differential Diagnosis Differential Diagnoses: The differential diagnosis associated with the presentation includes Acute rash Dermatitis Eczema Allergic reaction Lab Data 12/28/23 17:41 12/28/23 17:41 Labs: Lab Results 12/28/23 Range/Units 17:41 WBC 5.7 (4.8-10.8) X10*3/uL RBC 3.99 L (4.20-5.50) X10*6/uL Hgb 14.1 (12.0-16.0) g/dl Hct 42.2 (37.0-47.0) % MCV 105.8 H (80.0-98.0) fL MCH 35.3 H (27.0-33.0) pg MCHC 33.4 (31.0-35.0) g/dl RDW 12.6 (11.0-16.0) % Plt Count 210 D (160-400) X10*3/uL MPV 10.8 (9.4-12.3) fL Immature Gran % (Auto) 1.8 H (0.0-0.4) % Neut % (Auto) 59.1 (45-73) % Lymph % (Auto) 23.3 (20-40) % Griggs % (Auto) 10.6 (2-11) % Eos % (Auto) 4.1 H (0-4) % Baso % (Auto) 1.1 (0-2) % Lymph # (Auto) 1.3 (1.2-4.9) X10*3/uL Griggs # (Auto) 0.6 (0.1-1.2) X10*3/uL Eos # (Auto) 0.2 (0.0-0.4) X10*3/uL Baso # (Auto) 0.1 (0.0-0.2) X10*3/uL Abs Immat Gran (auto) 0.10 H (0.00-0.03) X10*3/uL Absolute Neuts (auto) 3.4 (2.0-8.3) x10*3/uL Absolute Nucleated RBC 0.000 (0.0-0.012) X10*3/uL Nucleated RBC % (auto) 0.0 (0.0-0.2) /100WBC Sodium 145 (135-145) mmol/L Potassium 4.2 (3.3-5.1) mmol/L Chloride 106 (96-108) mmol/L Carbon Dioxide 29 (22-29) mmol/L Anion Gap 14 (12-20) BUN 14 (9-16) mg/dL Creatinine 0.70 (0.5-1.4) mg/dL Estim Creat Clear Calc 71.2 Estimated GFR > 60 Random Glucose 90 (60-115) mg/dL Calcium 9.8 D (8.4-10.2) mg/dL Total Bilirubin 0.8 (0.0-1.0) mg/dL AST 21 (5-31) U/L ALT 25 (0-31) U/L Alkaline Phosphatase 119 H (39-117) U/L Total Protein 7.4 (6.5-8.0) g/dL Albumin 3.7 (3.5-5.0) g/dL Lipase 64 (8-78) U/L Discharge Plan Discharge Clinical Impression: Acute maculopapular rash, Pulmonary edema Patient Disposition: Home, Self-Care Instructions: Pulmonary Edema (ED), Acute Rash (ED) Additional Instructions: Your rash is most consistent with eczema and I do not believe it to be consistent with an allergic. Use triamcinolone twice daily for the next 5 days, do not apply this to your face Regarding the shortness of breath and cough, you are given a prescription for Lasix 20 mg to take daily for the next 5 days You should decrease water intake by about 25% Follow-up with [facility] Prescriptions: New furosemide [Lasix] 20 mg tablet 20 mg PO DAILY Qty: 5 0RF triamcinolone acetonide 0.05 % ointment 1 appl topical BID 5 Days Qty: 30 0RF No Action guaifenesin 200 mg/5 mL liquid 400 mg PO Q4H PRN (Reason: cough) 45 Days Qty: 473 2RF (DME) commode liners See Rx Instructions .Route .MEDSUPPLY Qty: 60 0RF Rx Instructions: As directed zinc oxide [Boudreauxs Butt Paste] 40 % ointment 1 appl topical BID-QID PRN (Reason: skin irritation) Qty: 113 11RF (DME) XL diapers XL See Rx Instructions .Route .MEDSUPPLY Qty: 60 11RF Rx Instructions: As directed silver sulfadiazine 1 % cream 1 appl topical DAILY Qty: 85 3RF Rx Instructions: apply a 1.5 mm thickness silver sulfadiazine 1 % cream 1 appl topical BID Qty: 400 11RF Rx Instructions: apply a 1.5 mm thickness tobramycin 0.3 % drops 2 drp ophthalmic (eye) Q4H Qty: 5 0RF Wound Wash Saline 0.9 % aerosol,spray 1 appl topical QID PRN (Reason: skin cleansing) Qty: 210 11RF (DME) 500ml bottle saline 18 per month See Rx Instructions .Route .MEDSUPPLY Qty: 18 11RF Rx Instructions: As directed nystatin 100,000 unit/gram powder 1 appl topical QID Qty: 60 3RF levetiracetam [Keppra] 100 mg/mL solution 200 mg feeding tube DAILY@0900 Qty: 473 2RF Rx Instructions: Give in morning guaifenesin [Marla-Tussin] 100 mg/5 mL liquid 200 mg PO Q4H PRN (Reason: for cough) Qty: 473 4RF lamotrigine 25 mg tablet, chewable dispersible 25 mg PO BID Qty: 180 1RF (DME) nitro gloves size medium See Rx Instructions .Route .MEDSUPPLY Qty: 1 11RF Rx Instructions: As directed sertraline 20 mg/mL concentrate 30 mg PO DAILY Qty: 60 3RF cefpodoxime 100 mg/5 mL suspension for reconstitution 200 mg PO BID 10 Days Qty: 200 3RF cefpodoxime 100 mg/5 mL suspension for reconstitution 200 mg PO BID 10 Days Qty: 200 0RF omeprazole magnesium 10 mg susp,delayed release for recon 5 mg PO DAILY 30 Days Qty: 30 5RF (DME) 60 cc syringes See Rx Instructions .Route .MEDSUPPLY Qty: 8 0RF Rx Instructions: As directed (DME) 10cc syringes See Rx Instructions .Route .MEDSUPPLY Qty: 1 0RF Rx Instructions: As directed (DME) 4x4 LITE Hydrocellular foam dressing See Rx Instructions .Route .MEDSUPPLY Qty: 100 12RF Rx Instructions: As directed (DME) 4x4 lite hydrocellular foam dressings 4x4 See Rx Instructions .Route .MEDSUPPLY Qty: 30 11RF Rx Instructions: adhesive with 1 inch border (DME) silicone foam dressing 4x 8 See Rx Instructions .Route .MEDSUPPLY Qty: 100 12RF Rx Instructions: As directed (DME) cahdesene baby powder (zinc, aloe, camomile) See Rx Instructions .Route .MEDSUPPLY Qty: 1 12RF Rx Instructions: As directed (DME) BUTT PASTE See Rx Instructions .Route .MEDSUPPLY Qty: 1 12RF Rx Instructions: As directed (DME) ready bath wipes See Rx Instructions .Route .MEDSUPPLY Qty: 30 0RF Rx Instructions: As directed (DME) chucks 30 x 36 See Rx Instructions .Route .MEDSUPPLY Qty: 30 12RF Rx Instructions: As directed (DME) disposable gloves Misc See Rx Instructions .Route Qty: 1000 11RF Rx Instructions: As directed (DME) heavy ABSORBENCY BED PADS 36x54 See Rx Instructions .Route .MEDSUPPLY Qty: 30 12RF Rx Instructions: As directed levalbuterol HCl 1.25 mg/3 mL solution for nebulization 1.25 mg inhalation Q4-6H PRN (Reason: for wheezing) 90 Days Qty: 1620 3RF levothyroxine [Synthroid] 88 mcg tablet 88 mcg PO DAILY@1030 Qty: 30 1RF azithromycin 200 mg/5 mL suspension for reconstitution 500 mg PO DAILY 5 Days Qty: 62.5 3RF Nayzilam 5 mg/spray (0.1 mL) spray,non-aerosol 5 mg intranasal DAILY PRN (Reason: Seizure Activity) acetaminophen [Tylenol] 325 mg Tablet 650 mg PO BEDTIME polyethylene glycol 3350 [Miralax] 17 gram Powder In Packet 17 g PO DAILY levetiracetam 100 mg/mL solution See Rx Instructions PO .COMPLEX Rx Instructions: 2 cc in am , 3 cc as needed 14 cc at night orally; levetiracetam [Keppra] 100 mg/mL Solution 1,350 mg PO BEDTIME@2029 Lactobacillus acidophilus 0.5 mg (100 million cell) tablet 3 tab PO DAILY lacosamide [Vimpat] 10 mg/mL solution 100 mg PO BEDTIME@2030 Rx Instructions: Neurology (DME) 60 cc syringes See Rx Instructions .Route .MEDSUPPLY Qty: 1 11RF Rx Instructions: As directed (DME) CONVATEC ALOE VESTA CLEANSING FOAM See Rx Instructions .Route .MEDSUPPLY Qty: 1 12RF Rx Instructions: As directed lidocaine HCl [Aspercreme (lidocaine HCl)] 4 % cream 1 appl topical Q8H PRN (Reason: pain) Qty: 120 12RF donepezil 10 mg tablet,disintegrating 10 mg PO DAILY memantine 10 mg tablet 10 mg PO DAILY ipratropium bromide 21 mcg (0.03 %) spray,non-aerosol 2 spray intranasal BEDTIME Print Language: Malian
--- NOTE | 2023-12-28 17:32 | PC.NURSE ---
pt's caregiver refused benedryl. she said the pt doesnt wake up for a day and half after she takes it and her PCP advised against taking it. YOBANI Lenz notified and Brenna held
[2023-12-28 17:45] LABS: MANUAL DIFF FLAG NO
[2023-12-28 17:47] LABS: Basophils Absolute Auto 0.1 X10*3/uL (0.0-0.2); Basophils Percent Auto 1.1 % (0-2); Eosinophils Absolute Auto 0.2 X10*3/uL (0.0-0.4); Eosinophils Percent Auto 4.1 % (0-4); Hematocrit 42.2 % (37.0-47.0); Hemoglobin 14.1 g/dl (12.0-16.0); Imm Gran Pct Auto 1.8 % (0.0-0.4); Lymphocytes Absolute Auto 1.3 X10*3/uL (1.2-4.9); Lymphocytes Percent Auto 23.3 % (20-40); Mean Corpuscular HGB Conc 33.4 g/dl (31.0-35.0); Mean Corpuscular Hemoglobin 35.3 pg (27.0-33.0); Mean Corpuscular Volume 105.8 fL (80.0-98.0); Mean Platelet Volume 10.8 fL (9.4-12.3); Monocytes Absolute Auto 0.6 X10*3/uL (0.1-1.2); Monocytes Percent Auto 10.6 % (2-11); Neutrophils Absolute Auto 3.4 x10*3/uL (2.0-8.3); Neutrophils Percent Auto 59.1 % (45-73); Platelet Count 210 X10*3/uL (160-400); Red Blood Count 3.99 X10*6/uL (4.20-5.50); Red Cell Distribution Width 12.6 % (11.0-16.0); White Blood Count 5.7 X10*3/uL (4.8-10.8)
[2023-12-28 18:25] LABS: Alanine Aminotransferase 25 U/L (0-31); Albumin Level 3.7 g/dL (3.5-5.0); Alkaline Phosphatase 119 U/L (39-117); Anion Gap 14 (12-20); Aspartate Amino Transferase 21 U/L (5-31); Bilirubin Total 0.8 mg/dL (0.0-1.0); Blood Urea Nitrogen 14 mg/dL (9-16); Calcium 9.8 mg/dL (8.4-10.2); Carbon Dioxide 29 mmol/L (22-29); Chloride 106 mmol/L (96-108); Creatinine Clr Calc Pharmacy 71.2; Estimated Glomerular Filt Rate > 60; Glucose Random 90 mg/dL (60-115); Lipase 64 U/L (8-78); Potassium 4.2 mmol/L (3.3-5.1); Sodium 145 mmol/L (135-145); Total Protein 7.4 g/dL (6.5-8.0)
[2023-12-28 18:37] VITALS: BP 129/61; PULSE 73; RESP 16; TEMP 36.1; O2SAT 99
[2023-12-28 19:59] VITALS: BP 120/46; PULSE 72; RESP 16; TEMP 36.4; O2SAT 96
[2023-12-28] MEDS: Furosemide 40 MG TABLET PO (20:35)
[2023-12-28 21:14] VITALS: BP 120/46; PULSE 72; RESP 16; TEMP 36.4; O2SAT 97
== END 2023-12-28 21:15 | disposition home or self-care (01) ==
PROVIDERS: Physician Assistant; Emergency Provider Emergency Medicine; PCP Internal Medicine
DX: J81.1 Chronic pulmonary edema (principal); R21 Rash and other nonspecific skin eruption; R19.7 Diarrhea, unspecified; R05.9 Cough, unspecified; Z79.899 Other long term (current) drug therapy
CPT/HCPCS: 36415; 71045; 80053; 83690; 85025; 99284

== ENCOUNTER 2024-01-04 14:26 | Outpatient (REF) | payer OTHER, SELFPAY ==
--- NOTE | ~2024-01-04 | XR_ITS ---
EXAMINATION: XR CHEST CLINICAL INFORMATION: Pneumonitis due to inhalation of food and vomit, patient is wheelchair-bound, best images obtained per technologist. Lower pads seen on lateral view unable to be removed. COMPARISON: 12/28/2023. TECHNIQUE: 2 views of the chest were obtained. FINDINGS: There is no gross pneumothorax. Cardiomediastinal silhouette remains enlarged. Similar diffuse interstitial and vascular markings again may represent acute edema and/or infectious/inflammatory process superimposed on chronic change as previously noted. XR/XR chest 2V IMPRESSION: Similar appearance of diffuse interstitial and vascular markings again may represent acute edema and/or infectious/inflammatory process superimposed on chronic changes as previously noted.
== END 2024-01-04 14:27 | disposition home or self-care (01) ==
LOC: HO.XRAY 14:26
PROVIDERS: PCP Internal Medicine; Visit Provider Internal Medicine
DX: J69.0 Pneumonitis due to inhalation of food and vomit (principal); I50.9 Heart failure, unspecified
CPT/HCPCS: 71046; 99212

== ENCOUNTER 2024-01-04 14:26 | Outpatient (AMB) | payer OTHER, SELFPAY ==
[2024-01-04 14:29] VITALS: BP 132/62; PULSE 81; O2SAT 96; BMI 35.5
--- NOTE | 2024-01-04 14:29 | MHC.OFFVIS ---
Vital Signs 01/04/24 14:29 Height 4 ft 10 in Weight 170 lb BMI 35.5 BMI Reason not done Patient refused/unable BP 132/62 Blood Pressure Location Lt brachial Position Sitting Pulse 81 Pulse Source Pulse Oximeter Pulse Oximetry (%) 96 Oxygen Delivery Method Room Air Intake Visit Reasons: c f/u Intake Note: pt is here for [facility] follow up and states her oxygen has been staying in the 90's most of the time, and question on water intake. Early Childhood Lead Teacher Required: No Allergies fentanyl [FENTANYL] Allergy (Intermediate, Verified 01/04/24 15:10) UNKNOWN codeine [CODEINE] Allergy (Unknown, Verified 01/04/24 15:10) UNKNOWN lorazepam [From ATIVAN] Allergy (Unknown, Verified 01/04/24 15:10) UNKNOWN oxcarbazepine [OXCARBAZEPINE] Allergy (Unknown, Verified 01/04/24 15:10) UNKNOWN penicillin V Allergy (Unknown, Verified 01/04/24 15:10) Unknown Penicillins [PENICILLINS] Allergy (Unknown, Verified 01/04/24 15:10) DIFFICULTY BREATHING Sulfa (Sulfonamide Antibiotics) [SULFA (SULFONAMIDE ANTIBIOTICS)] Allergy (Unknown, Verified 01/04/24 15:10) DIFFICULTY BREATHING levofloxacin [From LEVAQUIN] Adverse Reaction (Intermediate, Verified 01/04/24 15:10) hallucinations doxycycline Adverse Reaction (Mild, Verified 01/04/24 15:10) Diarrhea Medication List - Last Reconciled 01/04/24 by Sommer Whitlock MD [nitro gloves size medium As directed] [4x4 LITE Hydrocellular foam dressing As directed] [4x4 lite hydrocellular foam dressings adhesive with 1 inch border ] [10cc syringes As directed] [60 cc syringes As directed] [60 cc syringes As directed] [500ml bottle saline 18 per month As directed] acetaminophen (Tylenol) 650 mg PO BEDTIME azithromycin 500 mg (12.5 mL) PO DAILY 5 days [BUTT PASTE As directed] [cahdesene baby powder (zinc, aloe, camomile) As directed] cefpodoxime 200 mg (10 mL) PO BID 10 days [chucks 30 x 36 As directed] [commode liners As directed] [CONVATEC ALOE VESTA CLEANSING FOAM As directed] disposable gloves As directed donepezil 10 mg PO DAILY guaifenesin 400 mg (10 mL) PO Q4H PRN 45 days guaifenesin (Marla-Tussin) 200 mg (10 mL) PO Q4H PRN [heavy ABSORBENCY BED PADS 36x54 As directed] ipratropium bromide 2 sprays intranasal BEDTIME lacosamide (Vimpat) 100 mg PO BEDTIME@2030 Lactobacillus acidophilus 3 tabs PO DAILY lamotrigine 25 mg PO BID levalbuterol HCl 1.25 mg (3 mL) inhalation Q4-6H PRN 90 days levetiracetam (Keppra) 1,350 mg PO BEDTIME@2030 levetiracetam 2 cc in am , 3 cc as needed 14 cc at night orally; levetiracetam (Keppra) 200 mg (2 mL) feeding tube DAILY@0900 lidocaine HCl 4% (Aspercreme (lidocaine HCl)) 1 appl topical Q8H PRN memantine 10 mg PO DAILY midazolam (Nayzilam) 5 mg intranasal DAILY PRN nystatin 1 appl topical QID omeprazole magnesium 5 mg PO DAILY 30 days polyethylene glycol 3350 (Miralax) 17 grams PO DAILY [ready bath wipes As directed] sertraline 30 mg (1.5 mL) PO DAILY [silicone foam dressing 4x 8 As directed] silver sulfadiazine 1% 1 appl topical DAILY silver sulfadiazine 1% 1 appl topical BID sodium chloride 0.9% (Wound Wash Saline) 1 appl topical QID PRN Synthroid (levothyroxine) 88 mcg PO DAILY@1030 NS tobramycin 0.3% 2 drps ophthalmic (eye) Q4H triamcinolone acetonide 0.05% 1 appl topical BID 5 days triamcinolone acetonide 0.5% 1 appl topical BID 5 days [XL diapers As directed] zinc oxide 40% (Boudreauxs Butt Paste) 1 appl topical BID-QID PRN Do you need a note to return to daycare/school/sports/work: No HPI HPI [facility] [place]/u: Details: EDEN IS 63 YEARS OLD FEMALE IS A CASE OF DOWN SYNDROME, AND OVER THE PAST FEW YEARS HER MENTAL STATUS HAS DETERIORATED, SHE ALSO HAS EPILEPTIC DISORDER, DUE TO DYSPHAGIA SHE HAS HAD GASTROSTOMY TUBE IN PLACE FOR FEEDING., SHE IS NONVERBAL, HAS ADVANCED IMPAIRMENT, RECEIVES FULL CARE BY HER ELDER SISTER. IN THE PAST 2 WEEKS SHE HAS BEEN SICK STARTING WITH LOW-GRADE FEVER, COUGH AND O2 DESATURATION. SISTER TRY TO TAKE CARE OF HER AT HOME, SHE WAS PRESCRIBED ANTIBIOTICS, INITIALLY CEFPODOXIME WHICH CAUSED DIARRHEA AND THEN AZITHROMYCIN SUSPENSION, WHICH ALSO STARTED CAUSING DIARRHEA AND WAS STOPPED. HER O2 SATS WERE FALLING BELOW 90%, SHE WAS CHECKED IN THE EMERGENCY ROOM ON 12/27, ACTUALLY BECAUSE SHE ALSO HAD MACULAR TYPE OF RASH. HER CHEST X-RAY SHOWED HAZINESS IN BOTH LOWER LOBE, AREAS SUGGESTING FLUID OVERLOAD VERSUS ASPIRATION PNEUMONIA. HOSPITALIZATION WAS ADVISED BUT SISTER WANTED TO TAKE HER HOME. THE ER PHYSICIAN ADVISED HER TO REDUCE THE AMOUNT OF FLUID INTAKE, AND ALSO WAS PRESCRIBED LASIX 20 MG A DAY FOR 5 DAYS. PATIENT HAS GRADUALLY IMPROVED. SHE HAS REMAINED AFEBRILE AFTER THAT. SHE DID TAKE AZITHROMYCIN FOR AT LEAST 5 DAYS THEN SHE HAD DIARRHEA SO IT WAS STOPPED, SHE WAS GIVEN A FEW DOSES OF IMODIUM TO CONTROL THE DIARRHEA. IN ADDITION THIS PATIENT ALSO HAS OBSTRUCTIVE SLEEP APNEA FOR THE PAST MANY YEARS AND SHE USES CPAP AT NIGHT, ALSO FOR SHORT PERIODS DURING THE DAYTIME. SISTER CHECKS THE O2 SATS AND IF THEY FALL BELOW 90 SHE PUTS HER ON CPAP . FOR BRIEF PERIODS SHE DOES NOT HAVE O2 AT HOME. FORMERLY [facility], [facility] Medical History CHF (congestive heart failure) Physical deconditioning Tracheobronchitis G tube feedings Diastolic heart failure Pneumonia MSSA bacteremia Unspecified skin changes Seizure disorder Respiratory distress Aspiration into airway Dysphagia Dementia Toxic metabolic encephalopathy Epilepsy Hypoxemia Dysphagia causing pulmonary aspiration with swallowing LEONIE on CPAP Down syndrome Surgical History History of back surgery Social History Household Members: Family Household Members Other:: sister Housing: House Do you presently have visiting nurse or other home services: Yes Alcohol intake: never Comment: family member in room Patient Tobacco Use Status: Never used Tobacco e-Cigarette/Vaping Use: Never Used Second Hand Smoke Exposure: No Advance Directives Date on File: 06/18/23 service: No Current occupational status: disabled Cognitive needs: No Hearing needs: No Vision needs: No Review of Systems Const All systems reviewed & are unremarkable except as noted in HPI and below and Unobtainable due to mental status Physical Exam Vital Signs: Last Vital Signs Pulse 81 01/04/24 14:29 BP 132/62 01/04/24 14:29 Pulse Ox 96 01/04/24 14:29 Oxygen Delivery Method Room Air 01/04/24 14:29 BMI result Body Mass Index 35.5 TUSHAR IS IN THE STRETCHER. SHE IS NONCOMMUNICATIVE, DOES NOT EVEN MAKE EYE CONTACT. SHE IS NOT HAVING ANY RESPIRATORY DISTRESS. CAN NOT EXAMINE HER THROAT. NECK IS SHORT AND OBESE. CHEST: PERCUSSION NOTE IS RESONANT BUT DECREASED OVER THE BASILAR AREAS. LUNGS: SHE DOES HAVE EQUAL AERATION ON BOTH SIDES. BREATH SOUNDS ARE DISTANT OVER THE LOWER LOBES. NO WHEEZES OR CREPITATIONS ARE HEARD. ABDOMEN : GASTROSTOMY TUBE IN PLACE ABDOMEN IS OBESE AND PROTUBERANT , SOFT AND NO PALPABLE MASS. EXTREMITIES: NO EVIDENCE OF PHLEBITIS AND THERE IS NO PITTING EDEMA AT THIS TIME Assessment & Plan Assessment & Plan (1) Down syndrome: Comment: PATIENT HAS ADVANCED COGNITIVE IMPAIRMENT SECONDARY TO HER DOWN SYNDROME . SHE NEEDS FULL CARE 26/12 Code(s): Q90.9 - Down syndrome, unspecified Category: Medical Plan: HER OLDER SISTER, TOSHIA PROVIDES CARE 24 HOURS A DAY, I COMMENDED HER FOR PROVIDING EXCELLENT CARE . (2) LEONIE on CPAP: Comment: This patient has long-standing history of obstructive sleep apnea and the sister puts on the CPAP every night, so that she can sleep well. Code(s): G47.33 - Obstructive sleep apnea (adult) (pediatric); Z99.89 - Dependence on other enabling machines and devices Category: Medical Plan: ADVISE THAT SHE SHOULD CONTINUE TO HAVE CPAP AT NIGHT AND P.R.N. DURING THE DAYTIME WELL (3) Epilepsy: Comment: Controlled with meds, follows up with Neurology. Code(s): G40.909 - Epilepsy, unspecified, not intractable, without status epilepticus Category: Medical Plan: ABOVE (4) G tube feedings: Comment: PATIENT IS ON INTERMITTENT FEEDING SCHEDULE, Code(s): Z93.1 - Gastrostomy status Category: Medical Plan: DISCUSSED ABOUT THE VOLUME OF FEEDINGS. ADVISED TO CONTINUE 16 OWNS FEEDING 5 TIMES A DAY (5) CHF (congestive heart failure): Comment: PATIENT DOES NOT HAVE HISTORY OF ANY CARDIAC DISEASE. WHEN IN THE EMERGENCY ROOM THE CHEST X-RAY FINDINGS WERE SUGGESTIVE OF FLUID OVERLOAD. CLINICALLY HAS IMPROVED BY USING LASIX 20 MG A DAY FOR 5 DAYS. I AM GETTING A CHEST X-RAY REPEATED TO SEE IF IF THERE IS RADIOLOGIC IMPROVEMENT. Code(s): I50.9 - Heart failure, unspecified Category: Medical Plan: PATIENT IS ADVISED TO LIMIT FLUID INTAKE , IN BETWEEN THE FEEDINGS. BUT SHE CAN USE SMALL AMOUNTS OF WATER TO FLUSH THE TUBE. (6) Aspiration pneumonia: Comment: PATIENT IS PRONE TO HAVE ASPIRATIONS. IN THE PAST 2 WEEKS SHE HAS HAD RESPIRATORY INFECTION, TREATED WITH ANTIBIOTICS. THE USE OF ANTIBIOTICS HAD TO CUT SHORT BECAUSE OF DIARRHEA. SHE HAS LOT OF ALLERGIES TO ANTIBIOTICS THEN THE ONLY 1 THAT SHE CAN SAFELY TAKE IS AZITHROMYCIN IN LIQUID FORM. Code(s): J69.0 - Pneumonitis due to inhalation of food and vomit Category: Medical Plan: SHE ADVISE THAT SHE DOES NOT NEED ANY ANTIBIOTIC AT THIS TIME. IN FUTURE IF SHE DOES HAVE A RESPIRATORY INFECTION AND NEEDS THE ANTIBIOTIC EMPIRICALLY THE BEST WANT TO USE IS AZITHROMYCIN IN LIQUID FORM. Orders: Orders XR chest 2V Today I50.9 - Heart failure, unspecified, J69.0 - Pneumonitis due to inhalation of food and vomit Medications: New azithromycin take 12.5 mL (500 mg) by mouth today (day 1), then 6.25 mL (250 mg) daily for 4 days (days 2-5) PO 30 mL 1RF BRONCHITIS 5 days furosemide (Lasix) 20 mg PO Q OTHER DAY 4 tabs 1RF CHF 7 days Coding Level of Care Code Est Pt Level 4 (29400) Diagnoses Down syndrome Q90.9 LEONIE on CPAP G47.33; Z99.89 Epilepsy G40.909 G tube feedings Z93.1 CHF (congestive heart failure) I50.9 Aspiration pneumonia J69.0
== END 2024-01-04 15:06 | disposition home or self-care (01) ==
PROVIDERS: PCP Internal Medicine; Visit Provider Internal Medicine
DX: Q90.9 Down syndrome, unspecified (principal); G47.33 Obstructive sleep apnea (adult) (pediatric); Z99.89 Dependence on other enabling machines and devices; G40.909 Epilepsy, unspecified, not intractable, without status epilepticus; Z93.1 Gastrostomy status; I50.9 Heart failure, unspecified; J69.0 Pneumonitis due to inhalation of food and vomit
CPT/HCPCS: 99214

== ENCOUNTER 2024-02-21 13:34 | Outpatient (REF) | payer OTHER, SELFPAY ==
[2024-02-21 13:40] VITALS: BP 119/72; PULSE 72; RESP 16; TEMP 36.1; O2SAT 98; BMI 32.2
--- NOTE | 2024-02-21 16:16 | OP_ITS ---
DATE OF SERVICE: 02/21/2024 SURGEON: Michael Sevilla MD INDICATIONS: G-tube malfunction. PREOPERATIVE DIAGNOSIS: POSTOPERATIVE DIAGNOSIS: PROCEDURE PERFORMED: G-tube change. ESTIMATED BLOOD LOSS: COMPLICATIONS: ANESTHESIA: ASSISTANTS: SPECIMENS: MEDICATIONS: None. DESCRIPTION OF PROCEDURE: History and physical performed. The risks and benefits of the procedure were explained to the patient's guardian. Informed consent was obtained. The patient was placed supine in the minor surgeries room. The old G-tube site was inspected and appeared intact. Balloon was deflated. The G-tube was removed and a new 20-Trinidadian replacement gastrostomy tube was lubricated and inserted along the tract intragastrically. The balloon was inflated with 10 mL of water and the external bolster was snugged up to the abdominal wall with a dry sterile dressing underneath that. The tube was tested and found to be intragastric by auscultation and aspiration of gastric contents. Air was also auscultated. The patient tolerated procedure well and left the minor surgery suite in good condition. IMPRESSION: G-tube change. RECOMMENDATION: Follow up as needed. MD KEESHA Barron/DEJAN / [phone]
== END 2024-02-21 13:35 | disposition home or self-care (01) ==
LOC: HO.MS 13:34
PROVIDERS: PCP Internal Medicine; Visit Provider Internal Medicine Gastroenterology
PROC: (CPT 43762; principal; 2024-02-21 13:40)
DX: K94.23 Gastrostomy malfunction (principal)
CPT/HCPCS: 43762

== ENCOUNTER 2024-04-02 14:29 | Outpatient (AMB) | payer OTHER, SELFPAY ==
[2024-04-02 14:30] VITALS: BP 122/56; PULSE 60
--- NOTE | 2024-04-02 14:30 | A.OFFPC_ITS ---
Vital Signs 04/02/24 14:30 Height 5 ft BMI Reason not done Patient refused/unable BP 122/56 L Blood Pressure Location Rt brachial Position Sitting Pulse 60 Pulse Source Pulse Oximeter Oxygen Delivery Method Room Air Intake Visit Reasons: Down Syndrome, Pressure Ulcers, G-Tube Allergies fentanyl [FENTANYL] Allergy (Intermediate, Verified 04/02/24 14:32) UNKNOWN codeine [CODEINE] Allergy (Unknown, Verified 04/02/24 14:32) UNKNOWN lorazepam [From ATIVAN] Allergy (Unknown, Verified 04/02/24 14:32) UNKNOWN oxcarbazepine [OXCARBAZEPINE] Allergy (Unknown, Verified 04/02/24 14:32) UNKNOWN penicillin V Allergy (Unknown, Verified 04/02/24 14:32) Unknown Penicillins [PENICILLINS] Allergy (Unknown, Verified 04/02/24 14:32) DIFFICULTY BREATHING Sulfa (Sulfonamide Antibiotics) [SULFA (SULFONAMIDE ANTIBIOTICS)] Allergy (Unknown, Verified 04/02/24 14:32) DIFFICULTY BREATHING levofloxacin [From LEVAQUIN] Adverse Reaction (Intermediate, Verified 04/02/24 14:32) hallucinations doxycycline Adverse Reaction (Mild, Verified 04/02/24 14:32) Diarrhea Tobacco use date assessed: 09/18/23 Dental Screening Dental Screen Date: 07/12/23 HPI Down Syndrome, Pressure Ulcers, G-Tube HPI Details 63-year-old female with down syndrome G -tube feedings-bed bound having a history of seizures, obstructive sleep apnea pressure ulcers hypothyroidism and congestive heart failure coming in for follow-up. Last seen in November 2023. Review of the notes did meet with the filter tender in February 20 for G- tube change. Received also note in January 09 sleep apnea very severe with compliance. December ER visit for rash secondary to new antibiotic patient was given steroid ointments. Diagnosis of eczema. [facility] Medical History (Updated 04/02/24 @ 14:[address]stevez MD) CHF (congestive heart failure) Physical deconditioning Tracheobronchitis G tube feedings Diastolic heart failure Pneumonia MSSA bacteremia Unspecified skin changes Seizure disorder Respiratory distress Aspiration into airway Dysphagia Dementia Toxic metabolic encephalopathy Epilepsy Hypoxemia Dysphagia causing pulmonary aspiration with swallowing LEONIE on CPAP Down syndrome Surgical History History of back surgery Social History Household Members: Family Household Members Other:: sister Housing: House Do you presently have visiting nurse or other home services: Yes Alcohol intake: never Comment: family member in room Patient Tobacco Use Status: Never used Tobacco e-Cigarette/Vaping Use: Never Used Second Hand Smoke Exposure: No Advance Directives Date on File: 06/18/23 service: No Current occupational status: disabled Cognitive needs: No Hearing needs: No Vision needs: No Questionnaire Thrive Questionnaire Date Thrive assessed: 07/12/23 AUDIT C Alcohol Use Questionnaire (AUDIT-C) 1. How often do you have a drink containing alcohol?: Never 3. How often do you have six or more drinks on one occasion?: Never Total Score: 0 ANIYAH-7 AMB Questionnaire ANIYAH-7 Date ANIYAH - 7 assessed: 07/12/23 Source: Developed by Drs. Carlo Donaldson, Danielle Wallace, Eber Lindquist and colleagues, with an educational danna from [employer]. Physical exam (Primary Care) Vital Signs: Last Vital Signs Pulse 60 04/02/24 14:30 BP 122/56 L 04/02/24 14:30 Oxygen Delivery Method Room Air 04/02/24 14:30 Tobacco/Smoking Status: Tobacco use Status Tobacco use date assessed 09/18/23 04/02/24 14:38 Patient Tobacco Use Status Never used Tobacco 04/02/24 14:38 e-Cigarette/Vaping Use Never Used 04/02/24 14:38 Thrive Assessment: Date of Thrive Assessment Date Thrive assessed 07/12/23 04/02/24 14:38 Eyes Conjunctivae: conjunctivae normal Resp Auscultation: clear to auscultation bilaterally Cardio Rate: regular rate Rhythm: regular rhythm GI Inspection: Yes normal to inspection Office Procedures Flu Questionnaire Does the patient have a severe egg allergy?: No Does the patient have severe life threatening allergies?: No Does the patient have a fever or illness today?: No Has the patient ever had Guillain-[place] Syndrome?: No Has the patient ever had any past reaction to a flu shot?: No Immunizations Fluarix Triv 6410-1924 (PF) 45 mcg (15 mcg x 3)/0.5 mL IM syringe Performing Provider: Lane Estevez MD Performing Location: [facility] Administered by: JosyGRAZYNA Mix on 04/02/24 15:05 Dose Route Admin Location Dispensed Lot Number Expiration Date [facility] Account Support Manager 0.5 mL IM Left Deltoid 0.5 mL [id number] 12/02/24 [id number] GLAXOSMProximetryKLINE VIS Given Date VIS Provided VIS Publication Date 04/02/24 Single Vaccine 21 Eligibility Eligibility Date Funding Source Not [facility] Eligible 04/02/24 Private Coding Level of Care Code Est Pt Level 4 (91825) Diagnoses LEONIE on CPAP G47.33; Z99.89 Down syndrome Q90.9 Epilepsy G40.909 G tube feedings Z93.1 Pressure ulcer of left buttock, stage 2 L89.322 Pressure ulcer of right buttock, stage 2 L89.312 Acquired hypothyroidism E03.9 Hypothyroidism type: acquired Assessment & Plan Assessment & Plan (1) LEONIE on CPAP: Comment: This patient has long-standing history of obstructive sleep apnea and the sister puts on the CPAP every night, so that she can sleep well. Code(s): G47.33 - Obstructive sleep apnea (adult) (pediatric); Z99.89 - Dependence on other enabling machines and devices Category: Medical Plan: Continue to use the CPAP with compliance very good and benefits from this. (2) Down syndrome: Comment: TRISOMY 21 PATIENT HAS ADVANCED COGNITIVE IMPAIRMENT SECONDARY TO HER DOWN SYNDROME . SHE NEEDS FULL CARE 26/12 Code(s): Q90.9 - Down syndrome, unspecified Category: Medical Plan: Continue with supportive treatment (3) Epilepsy: Comment: Controlled with meds, follows up with Neurology. Code(s): G40.909 - Epilepsy, unspecified, not intractable, without status epilepticus Category: Medical Plan: Patient on Vimpat lamotrigine Keppra. (4) G tube feedings: Comment: PATIENT IS ON INTERMITTENT FEEDING SCHEDULE, Code(s): Z93.1 - Gastrostomy status Category: Medical Plan: Continue to feed through G-tube (5) Pressure ulcer of left buttock, stage 2: Comment: 2 inch by 1 inch Code(s): L89.322 - Pressure ulcer of left buttock, stage 2 Category: Medical Plan: Continuing to monitor (6) Pressure ulcer of right buttock, stage 2: Comment: 1 inch x inch Code(s): L89.312 - Pressure ulcer of right buttock, stage 2 Category: Medical Plan: Continue to monitor (7) Hypothyroid: Code(s): E03.9 - Hypothyroidism, unspecified Category: Medical Qualifiers: Hypothyroidism type: acquired Qualified Code(s): E03.9 - Hypothyroidism, unspecified Plan: Continue with thyroid medication with last blood work in December Orders: Orders Thyroid Stimulating Hormone Today E03.9 - Hypothyroidism, unspecified Complete Blood Count Auto Diff Today E03.9 - Hypothyroidism, unspecified Free T4 (Free Thyroxine) Today E03.9 - Hypothyroidism, unspecified Influenza [id number] Immunization Today Z23 - Encounter for immunization Comprehensive Met. Panel Today E03.9 - Hypothyroidism, unspecified Vitamin B12 and Folate Today E03.9 - Hypothyroidism, unspecified Vitamin D 25-OH Total Today E03.9 - Hypothyroidism, unspecified Magnesium Today E03.9 - Hypothyroidism, unspecified Phosphorus Today E03.9 - Hypothyroidism, unspecified Lacosamide Today G40.909 - Epilepsy, unspecified, not intractable, without status epilepticus Levetiracetam Keppra Today G40.909 - Epilepsy, unspecified, not intractable, without status epilepticus Medications: New Fluarix Triv 4898-0246 (PF) (flu vacc [id number] 6mos up(PF)) 0.5 mL IM ONCE 0.5 mL 0RF NS Z23 - Encounter for immunization Refilled omeprazole magnesium 5 mg PO DAILY 30 ea 5RF 30 days Z93.1 - Gastrostomy status
== END 2024-04-02 15:19 | disposition home or self-care (01) ==
LOC: HO.HMCH 14:30
PROVIDERS: PCP Internal Medicine; Visit Provider Internal Medicine
DX: L89.322 Pressure ulcer of left buttock, stage 2 (principal); G40.909 Epilepsy, unspecified, not intractable, without status epilepticus; Z93.1 Gastrostomy status; L89.312 Pressure ulcer of right buttock, stage 2; G47.33 Obstructive sleep apnea (adult) (pediatric); Z99.89 Dependence on other enabling machines and devices; Q90.9 Down syndrome, unspecified; E03.9 Hypothyroidism, unspecified

== ENCOUNTER → 2024-04-02 14:29 | Outpatient (BNVA) | payer OTHER, SELFPAY | PROVIDERS: PCP Internal Medicine; Visit Provider Internal Medicine | DX: Z23 Encounter for immunization (principal); G47.33 Obstructive sleep apnea (adult) (pediatric); Z99.89 Dependence on other enabling machines and devices; G40.909 Epilepsy, unspecified, not intractable, without status epilepticus; L89.322 Pressure ulcer of left buttock, stage 2; L89.312 Pressure ulcer of right buttock, stage 2; E03.9 Hypothyroidism, unspecified; Z93.1 Gastrostomy status; Q90.9 Down syndrome, unspecified | CPT/HCPCS: 90471; 90656; 99212 ==

== ENCOUNTER → 2024-07-12 15:19 | Outpatient (BNVA) | payer OTHER, SELFPAY | PROVIDERS: PCP Internal Medicine; Visit Provider Internal Medicine | DX: E03.9 Hypothyroidism, unspecified (principal); Q90.9 Down syndrome, unspecified; G40.909 Epilepsy, unspecified, not intractable, without status epilepticus; L89.312 Pressure ulcer of right buttock, stage 2; L89.322 Pressure ulcer of left buttock, stage 2; Z93.1 Gastrostomy status; G47.33 Obstructive sleep apnea (adult) (pediatric); Z99.89 Dependence on other enabling machines and devices | CPT/HCPCS: 99212 ==

== ENCOUNTER 2024-08-07 13:46 | Emergency (ER) | payer OTHER, SELFPAY ==
--- NOTE | 2024-08-07 14:16 | ED_ITS ---
HPI - General Adult General Chief complaint: General Medical Stated complaint: G-TUBE DISPLACEMENT PER EMS Time Seen by Provider: 08/07/24 14:15 Source: patient, family (sister who is primary emergency care tech), RN notes reviewed and old records reviewed Mode of arrival: EMS Limitations: language barrier (mostly nonverbal) History of Present Illness ED Provider: SHAYLA HICKS PA-C HPI narrative: 64 year old female with pmhx significant for down syndrome, seizures, hx of aspiration pneumonia, dysphagia requiring G [place] [address] 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 She had her G tube changed in 02/26 (20F) which was functioning well earlier in the day. She received all of her morning medicine. She is G tube dependent. Her sister who is her human services care specialist states she turned her back for a few seconds and when she turned back around, the patient had pulled her g tube out. Not on AC. Patient is mostly nonverbal. All history obtained from family at bedside. Family has no further concerns. Related Data Home Medications ?Medication ?Instructions ?Recorded ?Confirmed ipratropium bromide 21 mcg (0.03 2 spray intranasal BEDTIME 10/21/20 01/04/24 %) nasal spray levetiracetam 100 mg/mL oral 1,350 mg PO BEDTIME@202910/09/21 01/04/24 solution (Keppra) acetaminophen 325 mg tablet 650 mg PO BEDTIME 02/25/22 01/04/24 (Tylenol) midazolam 5 mg/spray (0.1 mL) 5 mg intranasal DAILY PRN Seizure 02/25/22 01/04/24 nasal spray (Nayzilam) Activity polyethylene glycol 3350 17 gram 17 g PO DAILY 02/25/22 01/04/24 oral powder packet (Miralax) Lactobacillus acidophilus 0.5 mg 3 tab PO DAILY 04/26/22 01/04/24 (100 million cell) tablet donepezil 10 mg disintegrating 10 mg PO DAILY 01/02/23 01/04/24 tablet memantine 10 mg tablet 10 mg PO DAILY 03/03/23 01/04/24 lacosamide 10 mg/mL oral solution 100 mg PO BEDTIME@202909/18/23 01/04/24 (Vimpat) levetiracetam 100 mg/mL oral See Rx Instructions PO .COMPLEX 09/18/23 01/04/24 solution Previous Rx's ?Medication ?Instructions ?Recorded guaifenesin 200 mg/5 mL oral liquid 400 mg (10 mL) PO Q4H PRN cough 45 05/09/22 days #473 mL zinc oxide 40 % topical ointment 1 appl topical BID-QID PRN skin 01/30/23 (Boudreauxs Butt Paste) irritation #113 grams silver sulfadiazine 1 % topical 1 appl topical BID #400 grams 04/12/23 cream silver sulfadiazine 1 % topical 1 appl topical DAILY #85 grams 04/12/23 cream sodium chloride 0.9 % topical 1 appl topical QID PRN skin 08/18/23 spray (Wound Wash Saline) cleansing #210 grams 500ml bottle saline 18 per month #18 ea 08/24/23 60 cc syringes #1 ea 09/18/23 lidocaine HCl 4 % topical cream 1 appl topical Q8H PRN pain #120 09/18/23 (Aspercreme (lidocaine HCl)) grams levetiracetam 100 mg/mL oral 200 mg (2 mL) feeding tube 09/20/23 solution (Keppra) DAILY@0900 #473 mL heavy ABSORBENCY BED PADS 36x54 #30 ea 11/13/23 silicone foam dressing 4x 8 #100 ea 11/13/23 levalbuterol HCl 1.25 mg/3 mL 1.25 mg (3 mL) inhalation Q4-6H 11/21/23 solution for nebulization PRN for wheezing 90 days #1,620 mL triamcinolone acetonide 0.05 % 1 appl topical BID 5 days #30 grams 12/28/23 topical ointment triamcinolone acetonide 0.5 % 1 appl topical BID 5 days #15 grams 01/02/24 topical cream furosemide 20 mg tablet (Lasix) 20 mg PO Q OTHER DAY CHF 7 days #4 01/04/24 tabs sertraline 20 mg/mL oral 30 mg (1.5 mL) PO DAILY #60 mL 03/14/24 concentrate levothyroxine 100 mcg tablet 100 mcg PO DAILY@1030 #30 tabs 04/03/24 BUTT PASTE #1 ea 04/23/24 CONVATEC ALOE VESTA CLEANSING FOAM #1 ea 04/23/24 lamotrigine 25 mg chewable 25 mg PO BID #180 ea 04/23/24 dispersible tablet azithromycin 200 mg/5 mL oral 500 mg (12.5 mL) PO DAILY 05/06/24 suspension BRONCHITIS 5 days #62.5 mL nystatin 100,000 unit/gram topical 1 appl topical QID #60 grams 05/08/24 powder esomeprazole magnesium 20 mg 20 mg PO DAILY #30 ea 06/22/24 granules delayed release for susp (Nexium Packet) guaifenesin 100 mg/5 mL oral 200 mg (10 mL) PO Q4H PRN for 07/11/24 liquid (Marla-Tussin) cough #473 mL Patient Turning device #1 ea 07/12/24 nitro gloves size medium #1 ea 07/16/24 4x4 LITE Hydrocellular foam #100 ea 07/16/24 dressing 4x4 lite hydrocellular foam #30 ea 07/16/24 dressings 10cc syringes #1 ea 07/16/24 60 cc syringes #8 ea 07/16/24 XL diapers #60 ea 07/16/24 cahdesene baby powder (zinc, aloe, #1 ea 07/16/24 camomile) chucks 30 x 36 #30 ea 07/16/24 commode liners #60 ea 07/16/24 disposable gloves #1,000 ea 07/16/24 ready bath wipes #30 ea 07/16/24 tobramycin 0.3 % eye drops 2 drp ophthalmic (eye) Q4H #5 mL 07/28/24 Allergies Allergy/AdvReac Type Severity Reaction Status Date / Time fentanyl [FENTANYL] Allergy Intermediate UNKNOWN Verified 08/07/24 14:44 codeine [CODEINE] Allergy Unknown UNKNOWN Verified 08/07/24 14:44 lorazepam [From ATIVAN] Allergy Unknown UNKNOWN Verified 08/07/24 14:44 oxcarbazepine [OXCARBAZEPINE] Allergy Unknown UNKNOWN Verified 08/07/24 14:44 penicillin V Allergy Unknown Unknown Verified 08/07/24 14:44 Penicillins [PENICILLINS] Allergy Unknown DIFFICULTY Verified 08/07/24 14:44 BREATHING Sulfa (Sulfonamide Allergy Unknown DIFFICULTY Verified 08/07/24 14:44 Antibiotics) BREATHING [SULFA (SULFONAMIDE ANTIBIOTICS)] famotidine [From Pepcid] AdvReac Intermediate diarrhea Verified 08/07/24 14:44 levofloxacin [From LEVAQUIN] AdvReac Intermediate hallucinati Verified 08/07/24 14:44 ons doxycycline AdvReac Mild Diarrhea Verified 08/07/24 14:44 Review of Systems Review of Systems: Yes all other systems are reviewed and are negative [facility] Past Medical History Source: old records reviewed, obtained from family and nursing notes reviewed Medical History CHF (congestive heart failure) Physical deconditioning Tracheobronchitis G tube feedings Diastolic heart failure Pneumonia MSSA bacteremia Unspecified skin changes Seizure disorder Respiratory distress Aspiration into airway Dysphagia Dementia Toxic metabolic encephalopathy Epilepsy Hypoxemia Dysphagia causing pulmonary aspiration with swallowing LEONIE on CPAP Down syndrome Surgical History History of back surgery Social History Social History Household Members: Family Household Members Other:: sister Housing: House Do you presently have visiting nurse or other home services: Yes Alcohol intake: never Comment: family member in room Patient Tobacco Use Status: Never used Tobacco e-Cigarette/Vaping Use: Never Used Second Hand Smoke Exposure: No Advance Directives Date on File: 06/18/23 service: No Current occupational status: disabled Cognitive needs: Yes (wheelchair) Hearing needs: No Vision needs: No Physical Exam ED Vital Signs: Vital Signs - 24 hr 08/07/24 14:17 08/07/24 16:37 08/07/24 16:40 Temperature 98.2 F 98.2 F 97.5 F Pulse Rate 72 72 65 Respiratory Rate 14 14 15 Blood Pressure 112/56 L 112/56 L 113/53 L Pulse Oximetry 99 99 100 Oxygen Delivery Method Room Air Room Air BMI result Body Mass Index 34.0 vital signs stable General: well appearing, in no acute distress. Skin: Warm, dry, intact. No rashes or lesions. Head: Normocephalic, atraumatic. EENT: Conjunctiva clear. PERRLA. EOM intact. Cardiac: Chest wall symmetric. RRR Lungs: Normal respiratory effort without accessory muscle use Abdomen: well formed g tube stoma noted to mid abdomen, noted swelling. no surrounding erythema. no purulent discharge. abd is soft, non tender, no guarding. Neuro: alert, awake Course Course Course Narrative: Dr. Moscoso at bedside. Attempted placement of 20 Nauruan G-tube. There is a good amount of swelling noted to stoma secondary to trauma of pulling G-tube out. We did not have an 18 Nauruan G-tube stocked in the ED so we attempted placement of 18 Nauruan Alexander. Again unsuccessful due to swelling. Consulted General surgery. Frandy and Dr. Gordon at bedside. Successfully reinserted an 18 Nauruan G- tube. Dr. Gordon was able to aspirate gastric contents. PEG tube was flushed without difficulty. Given PEG tube was placed in 2021 with well-formed track, they are not recommending confirmation with KUB + gastrographin. OK to start peg tube feeds again. > patient has remained stable while in ED.Patient has remained stable throughout ED visit today. Discussed worrisome signs and symptoms and when to return to the ED. All questions answered at this time. family at bedside informed to continued feeds and medications at home as scheduled. patient stable for discharge at this time. Ambulance booked for transport home. Medical Decision Making Medical Decision Making MDM Narrative: 64 year old female with pmhx significant for down syndrome, seizures, hx of aspiration pneumonia, dysphagia requiring G [place] [address] 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 vital signs stable. well appearing and in NAD. on exam, well formed g tube stoma noted to mid abdomen, noted swelling. no surrounding erythema. no purulent discharge. abd is soft, non tender, no guarding. Differential diagnosis includes gtube dislodgement. unlikely intraabdominal bleed/ infection Plan for gtube placement and re-evaluation. Differential Diagnosis Differential Diagnoses: The differential diagnosis associated with the presentation includes as above. Admission/Observation not indicated. 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 gordon Independent Historian Clinical information obtained from an independent historian. History obtained from or confirmed by: Other (sister/hcp) External Record Review External record reviewed: Inpatient record, Office record, Outpatient record and Prior outpatient radiology Chronic Conditions Patient?s care impacted by: Other (dysphagia gtube dependent) Social Determinants Patient?s care significantly limited by Social Determinants of Health including: Other Social Determinant of Health Critical Care Time Critical Care Time Critical Care Time: No Discharge Plan Discharge Clinical Impression: Attention to G-tube Patient Disposition: Home, Self-Care Instructions: How to Use and Care for Your PEG Tube (ED) Additional Instructions: Ann Marie was evaluated in the ED today after pulling out her G tube. This was replaced by general surgery at the bedside. Continue G tube feedings at home. Return with any new or worsening symptoms. In the case of an emergency call 911. Prescriptions: No Action guaifenesin 200 mg/5 mL liquid 400 mg PO Q4H PRN (Reason: cough) 45 Days Qty: 473 2RF zinc oxide [Boudreauxs Butt Paste] 40 % ointment 1 appl topical BID-QID PRN (Reason: skin irritation) Qty: 113 11RF silver sulfadiazine 1 % cream 1 appl topical DAILY Qty: 85 3RF Rx Instructions: apply a 1.5 mm thickness silver sulfadiazine 1 % cream 1 appl topical BID Qty: 400 11RF Rx Instructions: apply a 1.5 mm thickness Wound Wash Saline 0.9 % aerosol,spray 1 appl topical QID PRN (Reason: skin cleansing) Qty: 210 11RF (DME) 500ml bottle saline 18 per month See Rx Instructions .Route .MEDSUPPLY Qty: 18 11RF Rx Instructions: As directed levetiracetam [Keppra] 100 mg/mL solution 200 mg feeding tube DAILY@0900 Qty: 473 2RF Rx Instructions: Give in morning (DME) silicone foam dressing 4x 8 See Rx Instructions .Route .MEDSUPPLY Qty: 100 12RF Rx Instructions: As directed (DME) heavy ABSORBENCY BED PADS 36x54 See Rx Instructions .Route .MEDSUPPLY Qty: 30 12RF Rx Instructions: As directed levalbuterol HCl 1.25 mg/3 mL solution for nebulization 1.25 mg inhalation Q4-6H PRN (Reason: for wheezing) 90 Days Qty: 1620 3RF sertraline 20 mg/mL concentrate 30 mg PO DAILY Qty: 60 3RF levothyroxine 100 mcg tablet 100 mcg PO DAILY@1030 Qty: 30 3RF (DME) BUTT PASTE See Rx Instructions .Route .MEDSUPPLY Qty: 1 12RF Rx Instructions: As directed (DME) CONVATEC ALOE VESTA CLEANSING FOAM See Rx Instructions .Route .MEDSUPPLY Qty: 1 12RF Rx Instructions: As directed lamotrigine 25 mg tablet, chewable dispersible 25 mg PO BID Qty: 180 1RF Rx Instructions: Use generic [place] toll settlement clerk only azithromycin 200 mg/5 mL suspension for reconstitution 500 mg PO DAILY 5 Days Qty: 62.5 1RF nystatin 100,000 unit/gram powder 1 appl topical QID Qty: 60 3RF esomeprazole magnesium [Nexium Packet] [address] for susp in packet 20 mg PO DAILY Qty: 30 0RF guaifenesin [Marla-Tussin] 100 mg/5 mL liquid 200 mg PO Q4H PRN (Reason: for cough) Qty: 473 4RF (DME) nitro gloves size medium See Rx Instructions .Route .MEDSUPPLY Qty: 1 11RF Rx Instructions: As directed (DME) 4x4 LITE Hydrocellular foam dressing See Rx Instructions .Route .MEDSUPPLY Qty: 100 12RF Rx Instructions: As directed (DME) 4x4 lite hydrocellular foam dressings 4x4 See Rx Instructions .Route .MEDSUPPLY Qty: 30 11RF Rx Instructions: adhesive with 1 inch border (DME) 10cc syringes See Rx Instructions .Route .MEDSUPPLY Qty: 1 0RF Rx Instructions: As directed (DME) 60 cc syringes See Rx Instructions .Route .MEDSUPPLY Qty: 8 0RF Rx Instructions: As directed (DME) chucks 30 x 36 See Rx Instructions .Route .MEDSUPPLY Qty: 30 12RF Rx Instructions: As directed (DME) cahdesene baby powder (zinc, aloe, camomile) See Rx Instructions .Route .MEDSUPPLY Qty: 1 12RF Rx Instructions: As directed (DME) ready bath wipes See Rx Instructions .Route .MEDSUPPLY Qty: 30 0RF Rx Instructions: As directed (DME) XL diapers XL See Rx Instructions .Route .MEDSUPPLY Qty: 60 11RF Rx Instructions: As directed (DME) disposable gloves Misc See Rx Instructions .Route Qty: 1000 11RF Rx Instructions: As directed (DME) commode liners See Rx Instructions .Route .MEDSUPPLY Qty: 60 0RF Rx Instructions: As directed tobramycin 0.3 % drops 2 drp ophthalmic (eye) Q4H Qty: 5 0RF Nayzilam 5 mg/spray (0.1 mL) spray,non-aerosol 5 mg intranasal DAILY PRN (Reason: Seizure Activity) acetaminophen [Tylenol] 325 mg Tablet 650 mg PO BEDTIME polyethylene glycol 3350 [Miralax] 17 gram Powder In Packet 17 g PO DAILY levetiracetam 100 mg/mL solution See Rx Instructions PO .COMPLEX Rx Instructions: 2 cc in am , 3 cc as needed 14 cc at night orally; levetiracetam [Keppra] 100 mg/mL Solution 1,350 mg PO BEDTIME@2029 Lactobacillus acidophilus 0.5 mg (100 million cell) tablet 3 tab PO DAILY triamcinolone acetonide 0.05 % ointment 1 appl topical BID 5 Days Qty: 30 0RF triamcinolone acetonide 0.5 % cream 1 appl topical BID 5 Days Qty: 15 0RF lacosamide [Vimpat] 10 mg/mL solution 100 mg PO BEDTIME@2029 Rx Instructions: Neurology (DME) 60 cc syringes See Rx Instructions .Route .MEDSUPPLY Qty: 1 11RF Rx Instructions: As directed lidocaine HCl [Aspercreme (lidocaine HCl)] 4 % cream 1 appl topical Q8H PRN (Reason: pain) Qty: 120 12RF donepezil 10 mg tablet,disintegrating 10 mg PO DAILY memantine 10 mg tablet 10 mg PO DAILY ipratropium bromide 21 mcg (0.03 %) spray,non-aerosol 2 spray intranasal BEDTIME furosemide [Lasix] 20 mg tablet 20 mg PO Q OTHER DAY 7 Days Qty: 4 1RF (DME) Patient Turning device See Rx Instructions .Route .MEDSUPPLY Qty: 1 0RF Rx Instructions: bedridden patient Interventions: ED Discharge Assessment Last Done: 08/07/24 16:37 Discharge Date/Time: 08/07/24 17:04 Print Language: Chadian
[2024-08-07 14:17] VITALS: BP 112/56; BP 136/82; PULSE 72; PULSE 74; RESP 14; TEMP 36.8; O2SAT 97; O2SAT 99; BMI 34.0
--- NOTE | 2024-08-07 15:22 | P.CONGS_ITS ---
History of Present Illness Consult details Consult date: 08/07/24 <Diamond Erickson PA-C - Last Filed: 08/07/24 15:33> Reason for consult: other (G tube ) <EMMY Simpson Last Filed: 08/07/24 15:33> Narrative: 64 year old female with PMH significant for down syndrome, seizures, hx of aspiration pneumonia, dysphagia requiring G [place] [address] Sevilla who was brought to ED by family after pulling out her G tube about 1 hr prior to presentation. Had G tube changed in 02/26 uneventfully (20F). Was functioning well earlier in the day and was given all morning meds. She is G tube dependent. ED providers attempted to replace G tube and were unsuccessful and therefore General surgery was asked to see. <EMMY Simpson Last Filed: 08/07/24 15:33> Review of Systems Review of Systems: Yes Unobtainable due to mental condition <EMMY Simpson Last Filed: 08/07/24 15:33> [facility] Past Medical History Medical History: Medical History CHF (congestive heart failure) Physical deconditioning Tracheobronchitis G tube feedings Diastolic heart failure Pneumonia MSSA bacteremia Unspecified skin changes Seizure disorder Respiratory distress Aspiration into airway Dysphagia Dementia Toxic metabolic encephalopathy Epilepsy Hypoxemia Dysphagia causing pulmonary aspiration with swallowing LEONIE on CPAP Down syndrome <EMMY Simpson Last Filed: 08/07/24 15:33> Surgical History Surgical History: Surgical History History of back surgery <EMMY Simpson Last Filed: 08/07/24 15:33> Social History Social History: Social History Household Members: Family Household Members Other:: sister Housing: House Do you presently have visiting nurse or other home services: Yes Alcohol intake: never Comment: family member in room Patient Tobacco Use Status: Never used Tobacco e-Cigarette/Vaping Use: Never Used Second Hand Smoke Exposure: No Advance Directives: Yes Advance Directives on File: Yes Advance Directives Date on File: 06/18/23 service: No Current occupational status: disabled Cognitive needs: Yes (wheelchair) Hearing needs: No Vision needs: No <Diamond Erickson PA-C - Last Filed: 08/07/24 15:33> Meds Allergies/Adverse reactions: Allergies Allergy/AdvReac Type Severity Reaction Status Date / Time fentanyl [FENTANYL] Allergy Intermediate UNKNOWN Verified 08/07/24 14:44 codeine [CODEINE] Allergy Unknown UNKNOWN Verified 08/07/24 14:44 lorazepam [From ATIVAN] Allergy Unknown UNKNOWN Verified 08/07/24 14:44 oxcarbazepine [OXCARBAZEPINE] Allergy Unknown UNKNOWN Verified 08/07/24 14:44 penicillin V Allergy Unknown Unknown Verified 08/07/24 14:44 Penicillins [PENICILLINS] Allergy Unknown DIFFICULTY Verified 08/07/24 14:44 BREATHING Sulfa (Sulfonamide Allergy Unknown DIFFICULTY Verified 08/07/24 14:44 Antibiotics) BREATHING [SULFA (SULFONAMIDE ANTIBIOTICS)] famotidine [From Pepcid] AdvReac Intermediate diarrhea Verified 08/07/24 14:44 levofloxacin [From LEVAQUIN] AdvReac Intermediate hallucinati Verified 08/07/24 14:44 ons doxycycline AdvReac Mild Diarrhea Verified 08/07/24 14:44 <Diamond Erickson PA-C - Last Filed: 08/07/24 15:33> Home medications: Home Medications ?Medication ?Instructions ?Recorded ?Confirmed ?Last Taken ?Type ipratropium bromide 21 mcg (0.03 2 spray intranasal BEDTIME 10/21/20 01/04/24 04/25/22 History %) nasal spray levetiracetam 100 mg/mL oral 1,350 mg PO BEDTIME@2030 10/09/21 01/04/24 04/25/22 History solution (Keppra) acetaminophen 325 mg tablet 650 mg PO BEDTIME 02/25/22 01/04/24 04/25/22 History (Tylenol) midazolam 5 mg/spray (0.1 mL) 5 mg intranasal DAILY PRN Seizure 02/25/22 01/04/24 Unknown History nasal spray (Nayzilam) Activity polyethylene glycol 3350 17 gram 17 g PO DAILY 0901/04/24 04/26/22 History oral powder packet (Miralax) Lactobacillus acidophilus 0.5 mg 3 tab PO DAILY 04/26/22 01/04/24 04/26/22 History (100 million cell) tablet donepezil 10 mg disintegrating 10 mg PO DAILY 01/02/23 01/04/24 Unknown History tablet memantine 10 mg tablet 10 mg PO DAILY 03/03/23 01/04/24 Unknown History lacosamide 10 mg/mL oral solution 100 mg PO BEDTIME@2030 09/18/23 01/04/24 Unknown History (Vimpat) levetiracetam 100 mg/mL oral See Rx Instructions PO .COMPLEX 09/18/23 01/04/24 Unknown History solution <EMMY Simpson Last Filed: 08/07/24 15:33> Physical Exam Vital Signs: Vital Signs: Last Vital Signs Temp 98.2 F 08/07/24 14:17 Pulse 72 08/07/24 14:17 Resp 14 08/07/24 14:17 BP 112/56 L 08/07/24 14:17 Pulse Ox 99 08/07/24 14:17 O2 Del Method Room Air 08/07/24 14:17 BMI result Body Mass Index 34.0 <EMMY Simpson Last Filed: 08/07/24 15:33> Const: General: comfortable and no acute distress <PUMA Simpson Last Filed: 08/07/24 15:33> Resp: Effort & Inspection: normal respiratory effort <EMMY Simpson Last Filed: 08/07/24 15:33> GI: Other: abdomen soft, non tender well formed G tube tract LUQ <EMMY Simpson Last Filed: 08/07/24 15:33> Skin: General skin exam: no rashes or lesions noted <Tanya Simpson Last Filed: 08/07/24 15:33> Results Labs Labs: All other labs normal. <EMMY Simpson Last Filed: 08/07/24 15:33> Assessment and Plan (1) Gastrostomy tube dependent: Status: Acute <Diamond Erickson PA-C - Last Filed: 08/07/24 15:33> I was able to reinsert a German 18 ashish tube Gastric contents were aspirated The PEG tube was done in 2021 so there was already a well-formed tract Peg tube flushed, without difficulty; no pain or tenderness, abdominal exam very benign Okay to restart PEG tube feeds again Seen and examined independently <Ramesh Butler MD - Last Filed: 08/07/24 15:57> 64 year old female with PMH significant for down syndrome, seizures, hx of aspiration pneumonia brought to ED by family after pulling out her G tube (placed in 2021). The old G-tube site was inspected and appeared intact. G tube tract was dilated with lubricated 18F red rubber successfully and then lubricated 18F ASHISH feeding tube was placed easily. The tube was tested and found to be intragastric via aspiration of gastric contents. Air was also auscultated. The tube flushed well. The balloon was inflated with 10cc saline and the external bolster was snugly placed. Abdominal dressing was placed on top of G tube. Discussed abdominal binder as additional means of preventing pulling out tube. Can f/u with Dr. Sevilla as needed for further G tube care. <Diamond Erickson PA-C - Last Filed: 08/07/24 15:33> Procedures Date of Service Date of Service: 08/07/24 <Diamond Erickson PA-C - Last Filed: 08/07/24 15:33> 08/07/24 <Ramesh Butler MD - Last Filed: 08/07/24 15:57>
[2024-08-07 16:37] VITALS: BP 112/56; PULSE 72; RESP 14; TEMP 36.8; O2SAT 99
[2024-08-07 16:40] VITALS: BP 113/53; PULSE 65; RESP 15; TEMP 36.4; O2SAT 100
--- OUTSIDE RECORDS SUMMARY | 2024-08-07 17:28 | XMS_ITS | Continuity of Care Document ---
Author Organization MD - [employer], [place] - [facility] Address [address] [place] [phone] Care Team Providers Care Crystal Growing Technician Name Role Phone HIM CCA OTHER PABLO SAUCEDOGONZALO Primary Care Provider Assessment Encounter Date Assessment Date Assessment LastModified by Organization Details LastModified Time 07/23/2024 07/23/2024 Evaluation in the field was performed by my joint finisher colleague, as noted above, I provided real-time direction and supervision for this visit. This is a 63yo F who needed [facility] eval for a lab draw. The patient has no medical complaint. Her primary doctor has ordered a thyroid panel. PE: General: Awake & alert, NAD Respiratory: Chest rise equal bilat, no increased wob Impression: Encounter for lab draw Plan: -VSS -Routine lab draw arranged by [facility] staff and PCP. No medical complaints. -Sample drawn and sent to lab by medic under orders placed by PCP. Disposition: Remain at home [email or web address] Not available 07/23/2024 19:08:10 Plan of Treatment Reminders Order Date Submit Date Provider Last Modified By Organization Details Last Modified Time Details Appointments None record ed. Lab None record ed. Referral None record ed. Procedures None record ed. Surgeries None record ed. Imaging None record ed. Medication Orders None record ed. Patient TargetsNo targets recorded. Patient InstructionsNo instructions recorded. Reason for Referral None Reported. Medical Equipment None Reported. Allergies Allergen ID Allergen Name Allergen Category Reaction Reaction Severity Criticality Documentation Date Start Date Code Code System Note Provider Name and Address Organization Details Recorded Time 13349 doxycycli ne Not available Not available Not available Not available 04/19/2024 3640 RxNorm Not Available [facility] - production 12:55:34 09868 fentanyl medicatio n Not available Not available Not available 06/04/2024 4337 RxNorm Juanita Stephenson MD [address] [facility],[address], [place], [phone], [employer] 4 12:19:21 39059 Ativan medicatio n Not available Not available Not available 06/04/202498376 9 RxNorm Juanita Stephenson MD [address] [facility],[address], [place], [phone], [employer] 4 12:19:26 85227 Substance with sulfonami de structure and antibacte rial mechanism of action (substanc e) medicatio n Not available Not available Not available 06/06/2024 44638 8003 SNOMED Leila Becerra [facility], [employer] 5 10:45:27 1946 Bactrim medicatio n Not available Not available Not available 2022 14899 9 RxNorm Not Available [facility] - production 4 03:49:06 1947 Product containin g penicilli n (product) medicatio n Not available Not available Not available 2022 07157 8001 SNOMED Not Available [employer] - production 4 03:49:06 Medications Name Sig Start Date Stop Date Status Note LastModified by Organization Details LastModified Time mm-brief each t4522 active Not Available Not Available N ot Available first-omepra zole 2 mg/ml susp GIVE EDEN 10ML (20MG) DAILY active Not Available Not Available No t Available diphenhydram ine 12.5 mg/5 mL oral liquid GIVE 15ML VIA G-TUBE EVERY 6 HOURS FOR 7 DAYS active Not Available Not Available No t Available silver sulfadiazine 1 % topical cream APPLY TOPICALLY IN A 1.5MM THICK LAYER 2 TIMES A DAY active Not Available Not Available No t Available doxycycline hyclate 100 mg capsule TAKE 1 CAPSULE BY MOUTH TWICE A DAY active Not Available Not Available No t Available prednisolone sodium phosphate 15 mg/5 mL (3 mg/mL) oral solution GIVE 10ML VIA G-TUBE/DAY X2 DAYS 6.7ML X2 DAYS 3.3ML X2DAYS 1.7ML X2DAY FLUSH G-TUBE AFTER EACH DOSE active Not Available Not Available No t Available triamcinolon e acetonide 0.5 % topical cream USE 1 APPL TOPICALLY 2 TIMES A DAY FOR 5 DAYS active Not Available Not Available N ot Available cefpodoxime 200 mg tablet TAKE 1 TABLET ORALLY 2 TIMES A DAY FOR 14 DAYS MUST ADMINISTER WITH A MEAL/FOOD active Not Available Not Available No t Available benzonatate 200 mg capsule TAKE 1 CAPSULE BY MOUTH THREE TIMES A DAY active Not Available Not Available Not Available metronidazol e 500 mg tablet TAKE 1 TABLET BY MOUTH 3 TIMES A DAY FOR 10 DAYS active Not Available Not Available Not Available ciprofloxaci n 250 mg tablet TAKE 1 TABLET BY MOUTH TWICE A DAY FOR 7 DAYS active Not Available Not Available No t Available cefpodoxime 100 mg/5 mL oral suspension TAKE 10 ML ORALLY 2 TIMES A DAY FOR 10 DAYS active Not Available Not Available Not Available lamotrigine 25 mg chewable dispersible tablet TAKE 1 TABLET BY MOUTH TWICE A DAY active Not Available Not Available No t Available ciprofloxaci n 500 mg tablet TAKE 1 TABLET BY MOUTH TWICE A DAY FOR 5 DAYS active Not Available Not Available No t Available cefazolin 10 gram solution for injection active Not Available Not Available No t Available levothyroxin e 100 mcg tablet TAKE 1 TABLET BY MOUTH DAILY AT 10:30 active Not Available Not Available No t Available doxycycline monohydrate 100 mg capsule TAKE 1 CAPSULE BY MOUTH ONCE A DAY FOR 5 DAYS. active Not Available Not Available No t Available cephalexin 500 mg capsule open 1 capsule- dissolve in h20 then give via GT- flush w/ 120 ml h20 after 2022 active Not Available Not Available Not Avai lable cephalexin 250 mg/5 mL oral suspension 10 ml every 8 hrs via G tube x 7 days- flush GT w/ 120-150 ml liquid ie H20 after each dose active Not Available Not Available No t Available tobramycin 0.3 % eye drops INSTILL 2 DROPS INTO THE EYE(S) EVERY 4 HOURS active Not Available Not Available No t Available nystatin 100,000 unit/gram topical cream APPLY TOPICALLY 3 TIMES A DAY active Not Available Not Available Not Available Synthroid 88 mcg tablet TAKE 1 TABLET BY MOUTH DAILY,INSTR :BRAND NAME ONLY active Not Available Not Available No t Available Tobrex 0.3 % eye ointment APPLY 1/2 INCH TO UPPER LEFT EYELID 3 TIMES A DAY FOR 7 DAYS active Not Available Not Available N ot Available mupirocin 2 % topical ointment APPLY A SMALL AMOUNT TO AFFECTED AREA 3 TIMES A DAY active Not Available Not Available Not Available furosemide 20 mg tablet TAKE 1 TABLET BY MOUTH EVERY OTHER DAY FOR CHF FOR 7 DAYS active Not Available Not Available No t Available famotidine 40 mg/5 mL (8 mg/mL) oral suspension TAKE 2.5 ML ORALLY 2 TIMES A DAY FOR 30 DAYS active Not Available Not Available Not Available nystatin 100,000 unit/gram topical powder 1 APPL TOPICALLY 4 TIMES A DAY active Not Available Not Available Not Available levalbuterol 1.25 mg/3 mL solution for nebulization USE 1.25 MG (3 ML) INHALED EVERY 4 TO 6 HOURS NEEDED FOR FOR WHEEZING FOR 90 DAYS active Not Available Not Available Not Available azithromycin 200 mg/5 mL oral suspension TAKE 12.5 ML BY MOUTH DAILY FOR 5 DAYS. DISCARD REMAINDER active Not Available Not Available No t Available cefuroxime axetil 500 mg tablet active Not Available Not Available No t Available sertraline 20 mg/mL oral concentrate TAKE 1.5 MLS BY MOUTH ONCE DAILY active Not Available Not Available No t Available ipratropium bromide 21 mcg (0.03 %) nasal spray SPRAY EACH NOSTRIL 2 TIMES A DAY NEEDED FOR NASAL CONGESTION active Not Available Not Available N ot Available Benadryl 25 mg capsule open 1 capsule- dissolve in water/ give via GT then flush w/ 120 ml h20 2022 active Not Available Not Available Not Avai lable azithromycin 500 mg tablet TAKE 1 TABLET BY MOUTH EVERY DAY FOR 3 DAYS active Not Available Not Available No t Available levetiraceta m 100 mg/mL oral solution TAKE 2 ML BY MOUTH IN THE MORNING, 3 ML IN THE AFTERNOON AND 14 ML AT NIGHT BY MOUTH active Not Available Not Available No t Available memantine 10 mg tablet TAKE 1 TABLET BY MOUTH DAILY STARTING AFTER COMPLETION OF 5MG PRESCRIPTIO N active Not Available Not Available No t Available memantine 5 mg tablet TAKE 1 TABLET BY MOUTH EVERY DAY active Not Available Not Available No t Available Boudreauxs Butt Paste 16 % topical ointment DIRECTED active Not Available Not Available Not Available donepezil 5 mg disintegrati ng tablet TAKE 1 TABLET BY MOUTH EVERYDAY AT BEDTIME active Not Available Not Available No t Available donepezil 10 mg disintegrati ng tablet TAKE 1 TABLET BY MOUTH EVERYDAY AT BEDTIME active Not Available Not Available No t Available esomeprazole magnesium DR 20 mg granules delayed release for susp active Not Available Not Available Not Available BD Luer-Brigette Syringe 10 mL DIRECTED active Not Available Not Available Not Available prednisolone sodium phosphate 10 mg/5 mL oral solution 15ml daily for 2 days then 10 ml daily for 2 days then 5 ml daily for 2 days then 2.5 ml daily for 2 days- via GT- flush with 120 ml H20 after meds 2022 active Not Available Not Available Not Avai lable Prilosec 10 mg oral suspension,d elayed release GIVE CONTENTS OF 2 PACKETS DAILY active Not Available Not Available No t Available Vimpat 10 mg/mL oral solution TAKE 11 ML BY MOUTH DAILY AT BEDTIME,X30 DAYS,INSTR: BRAND MEDICALLY NECESSARY. NO SUBSTITUTIO NS. active Not Available Not Available No t Available Marla-Tussin 100 mg/5 mL oral liquid 200 MG (10 ML) ORALLY EVERY 4 HOURS NEEDED FOR FOR COUGH active Not Available Not Available No t Available Boudreauxs Butt Paste 40 % topical ointment APPLY TOPICALLY 2-4 TIMES A DAY NEEDED FOR SKIN IRRITATION active Not Available Not Available N ot Available Luer-Brigette Tip 30 mL syringe active Not Available Not Available Not Available Lactobacillu s acidophilus 0.5 mg (100 million cell) tablet TAKE 3 TABLETS BY MOUTH EVERY DAY active Not Available Not Available No t Available Nayzilam 5 mg/spray (0.1 mL) nasal spray USE ONE 5 MG NASAL SPRAY IN ONE NOSTRIL. MAY REPEAT ONCE IN 10 MINUTES IF NEEDED IN OTHER NOSTRIL active Not Available Not Available No t Available BD Luer-Brigette Syringe 50 mL USE DIRECTED active Not Available Not Available No t Available Daily Fiber (psyllium-as partame) 3.4 gram oral powder packet DISSOLVE 1 PACKET IN BEVERAGE DAILY active Not Available Not Available No t Available Flowflex COVID-19 Antigen Home Test kit FOLLOW MANUFACTURE RS DIRECTIONS active Not Available Not Available N ot Available Vitals Date Recorded Oxygen saturation Oxygen saturation in Arterial blood by Pulse oximetry Body height Heart rate Respiratory rate Body temperature Body weight Systolic blood pressure Diastolic blood pressure Provider Name and Address Organization Details Last Updated DateTime 5 98 % 98 % 152.4 cm 72 /min 14 /min 97.4 [degF] 14142.8 g 108 mm[Hg] 72 mm[Hg] Not Available [facility] - production 5 18:58:10 Social History None recorded. Functional Status None recorded. Mental Status None recorded. Family History Nothing Reported. Medical History No medical history recorded. Gynecological HistoryNo gynecological history recorded. Obstetrics History GPAL:G 0 P 0 0 0 0 Past Encounters Encounter ID Performer Location Encounter Start Date Encounter Closed Date Diagnosis/Indication Diagnosis SNOMED-CT Code Diagnosis ICD10 Code Diagnosis Note [id number] [facility] - [address] [phone] 07/23/2024 18:58:08 07/24/2024 10:01:12 Sample sent to laboratory for test [id number] Z75.2 Health Concerns Section Related Observation LastModified by Organization Detai ls LastModified Time None Recorded Concern Status LastModified by Organization Details LastModified Time None Recorded Payers Encounter Date Sequence Insurance Name Policy Number Policy Ballard Covered Member ID Ballard Member ID Guarantor Name 07/23/[address] [facility] - DOS ON OR AFTER 2022 - DUAL ELIGIBLE - SKILLED NURSING OPTIONS AND ONE CARE (MEDICARE REPLACEMENT/ADV ANTAGE - HMO) [employer] [id number] [employer] Notes Date Note Type Note Provider Name and Address Organization Details Recorded Time 07/23/2024 text/html [facility] Nurse Triage Notes (Deepali Ramirez - RN): Reason For Request: Sister Alley needs bloodwork done Chief Complaints: Electrolyte imbalance PMH: Epilepsy/Seizure Disorder, Sleep Apnea, Dementia (e.g., Alzheimer's Disease) PMH Reviewed at 07/23/2024 - 11:46 Allergies Reviewed at 07/23/2024 - 11:46 Comments: Sister aware we make exception for homebound patients, as long as labs are within scope, however, we have not received labs from office. Email provided, and she will contact office. This nurse will call back, once labs are received- AC Lab order received, and uploaded- Patient with down syndrome, nonverbal and clinical complex, and in need of a thyroid panel- AC .................. .................. .................. .................. .................. .................. .................. ............... Subsea Engineer Note From Mandeep Cornel: Patient in wheelchair, nonverbal, at baseline according to caregiver. PCP requested labs to check routine thyroid levels. Unable to gauge complaint, if any. Patient pink warm dry secondary exam unremarkable. Lung sounds clear negative increase breathing. Negative edema noted. Sample obtained and brought to [facility]. .................. .................. .................. .................. .................. .................. .................. ............... [facility] Consulted: Kavita Gardner .................. .................. .................. .................. .................. .................. .................. ............... Disposition: Fulfilled Kavita Gardner MD [address] [facility], [place], [address], [employer] 07/23/2024 19:34:53 OBGyn Episode No OBEpisode recorded.
--- OUTSIDE RECORDS SUMMARY | 2024-08-07 17:28 | XMS_ITS ---
Author Organization [facility] Address [address] [place] [phone] Care Team Providers Care Instrument Technologist Name Role Phone Lane Estevez MD Primary Care Provider Michael Jaime Jr Unavailable REASON FOR VISIT concerned site where tube is possilbe infected/put on cancelation list. Encounters Encounter Location Date Provider Diagnosis [facility] [address] [place] [phone] 06/28/2024 Michael Sevilla Jr Plan Of Treatment No Information Progress Notes * RACHNA ALEXANDRIAB:1960 (63 yo F)Acc No.[id number]:06/28/2024 Patient:?EDEN BRISCOE :1960???Age:63 Y???Sex:Female Address:[address] [place] [address] [place], [address] * true * Date:? Generated for Printi alma/Alis/eTransmitting on:?08/07/2024 05:28 PM EST
--- OUTSIDE RECORDS SUMMARY | 2024-08-07 17:29 | XMS_ITS | Data Portability ---
Author Organization [facility] Address [address] [place] [phone] Care Team Providers Care Reconciliation Analyst Name Role Phone HIM CCA OTHER POLINH Primary Care Provider Assessment Encounter Date Assessment Date Assessment LastModified by Organization Details LastModified Time 09/27/2023 09/27/2023 As noted, we were called to see this patient regarding concerns of UTI. 63 yo F with PMHx notable for seizure d/o, paraplegia, nonverbal, wheelchair bound, g-tube fed cared for my family who was concerned about a UTI. They noticed 3d ago that the urine was foul smelling and patient more lethargic. She uses depends and the family could smell more malodorous urine over the last few days. Last UTI was appx a year ago. No f/c. No n/v. Patient has previously tolerated cephalexin for a skin infection/bliste rs Allergies to sulfa, penicillin (hives), ativan Evaluation in the field was performed by my collar worker colleague, as noted above, I provided real-time direction and supervision for this visit. Vitals reviewed The medic evaluation revealed: nonverbal, awake, alert mmm lungs clear rrr abd soft, nt; no cva tenderness no pitting edema Impression: Urinary symptoms Probable acute UTI based on udip and malodorous urine and report of lethargy No systemic sxs to suggest sepsis straight cath performed and udip strongly suggestive of uti Plan: Patient needs liquid per G tube Has tolerated cephalexin in the past Will start on cephalexin while ucx is pending Red flag s/s reviewed Primary care, consider a re-evaluation of the patient. Started on cephalexin. Urine culture sent off to lab Disposition: We discussed the diagnostic uncertainty of home visits and the risk associated with this. In this case, the patient and I felt this to be an acceptable and reasonable amount of risk given the benefit of avoiding an ED visit. We discussed the need to seek care urgently/emergen tly in the setting of any new or worsening serious symptoms, particularly fevers, inability to tolerate antibiotics, abdominal pain, other concerns [email or web address] Not available 09/27/2023 20:43:24 06/04/2024 06/04/2024 I provided real -time medical direction via phone for this encounter, and was available for additional phone based assistance as needed. I have reviewed and agree with the Assessment and Plan as documented by the Otr Van Cdl Truck Driver. We discussed the diagnostic uncertainty of home visits and the risk associated with this. In this case the patient and I felt this to be an acceptable and reasonable amount of risk given the benefit of avoiding an ED visit. The patient's sister who is primary CG given the opportunity to ask questions( pt non verbal). Advised if develops CP/severe SOB/turning blue/ severe abd pain uncontrolled / syncope/ hi fever unresponsive to APAP to call 911- verbalized understanding of instruction [email or web address] Not available 06/04/2024 13:20:52 07/23/2024 07/23/2024 Evaluation in the field was performed by my collar worker colleague, as noted above, I provided real-time [...] Details Last Modified Time Details Appointments None recorded. Lab culture, urine 2023 024 ANT [facility] (Centralized Electronic Ordering - All Locations), Patient Can Go To The Location Of Their Choice, [id number] 06:05:59 urinalysis, dipstick 2023 024 [email or web address] 0 [facility], [address] [place] [address], [phone], 13:18:46 BMP, serum or plasma 2023 [email or web address] 0 [facility], [address] [place] [address], [phone], 4 13:19:53 urinalysis, dipstick 2023 [email or web address] [facility], [address] [place], [phone], 19:32:25 culture, urine 2023 TUCKERMAN [facility] (Centralized Electronic Ordering - All Locations), Patient Can Go To The Location Of Their Choice, [address] 08:08:39 Referral None recorded. Procedures catheteriza tion straight - procedure (PROC) 2023 [email or web address] 0 Not available 12:23:36 catheteriza tion straight - procedure (PROC) 2023 [email or web address] Not available 19:32:24 Surgeries None recorded. Imaging None recorded. Medication Orders cephalexin 250 mg/5 mL oral suspension 2023 [id number], [address] [place], [address], 13:19:54 mupirocin 2 % topical ointment 2023 [facility] #[id number], [address] [place], [address], 15:56:26 cephalexin 250 mg/5 mL oral suspension 2023 [facility] #[id number], [address] [place], [address], 19:36:41 Patient TargetsNo targets recorded. Patient InstructionsNo instructions recorded. Reason for Referral None Reported. Results Created Date Observation Date Name Description Value Unit Range Abnormal Flag Note LastModifiedBy Organization Detail LastModifiedTime 09/27/19 24 09/30/2023 URINE CULTU RE, ROUTI NE urine culture, routine Final report abnormal Not Available [facility] ([facility]) [address], [place], [address], 09/30/2023 16:07:42 09/27/19 24 09/30/2023 URINE CULTU RE, ROUTI NE result 1 Klebsi violeta aeroge win abnormal Great er than 100,0 00 colon y formi ng units per mL Not Available [facility] ([facility]) [address], [place], [address], 09/30/2023 16:07:42 09/27/19 24 09/30/2023 URINE CULTU RE, ROUTI NE antimicrobia l susceptibili ty Commen t S = Susce ptibl e; I = Inter media te; R = Resis tant P = Posit guy; N = Negat guy MICS are expre ssed in micro grams per mL Antib iotic RSLT# 1 RSLT# 2 RSLT# 3 RSLT# 4 Amoxi cilli n/Cla vulan ic Acid R Cefep diamond S Ceftr iaxon e S Cefur oxime S Cipro floxa rani S Ertap enem S Genta micin S Imipe nem S Levof loxac in S Nitro furan toin S Tetra cycli ne S Tobra mycin S Trime thopr im/Garcia lfa S Not Available [facility] ([facility]) [address], [place], [address], 09/30/2023 16:07:42 09/27/19 24 09/27/2023 urina lysis , dipst ick Leukocytes 4+ Not Available [facility] [address] [place] [address], [phone], 09/27/2023 19:28:56 09/27/19 24 09/27/2023 urina lysis , dipst ick Nitrite positi ve Not Available [facility] [address] [place] [address], [phone], 09/27/2023 19:28:56 09/27/19 24 09/27/2023 urina lysis , dipst ick Blood ++ Not Available [facility] [address] [place] [address], [phone], 09/27/2023 19:28:56 09/27/19 24 09/27/2023 urina lysis , dipst ick Ketone + Not Available [facility] [address] [place] [address], [phone], 09/27/2023 19:28:56 06/04/20 24 06/06/2024 URINE CULTU RE,CO MPREH ENSIV E urine culture,comp rehensive Final report Not Available [facility] ([facility]) [address], [place], [address], 06/06/2024 06:05:59 06/04/20 24 06/06/2024 URINE CULTU RE,CO MPREH ENSIV E result 1 COMMEN T Mixed uroge nital freddy Great er than 100,0 00 colon y formi ng units per mL Not Available [facility] ([facility]) [address], [place], [address], 06/06/2024 06:05:59 06/04/20 24 06/04/2024 urina lysis , dipst ick Leukocytes 2+ Not Available [facility] [address] [place] [address], [phone], 06/04/2024 13:17:57 06/04/20 24 06/04/2024 urina lysis , dipst ick Nitrite negati ve Not Available [facility] [address] [place] [address], [phone], 06/04/2024 13:17:57 06/04/20 24 06/04/2024 urina lysis , dipst ick Appearance clear Not Available [facility] [address] [place] [address], [phone], 06/04/2024 13:17:57 06/04/20 24 06/04/2024 urina lysis , dipst ick Color yellow Not Available [facility] [address] [place] [address], [phone], 06/04/2024 13:17:57 Result Notes None recorded. Medical Equipment None Reported. Allergies Allergen ID Allergen Name Allergen Category Reaction Reaction Severity Criticality Documentation Date Start Date Code Code System Note Provider Name and Address Organization Details Recorded Time 92329 doxycycli ne Not available Not available Not available Not available 04/19/2024 3640 RxNorm Not Available [facility] - production 12:55:34 31601 fentanyl medicatio n Not available Not available Not available 06/04/2024 4337 RxNorm Juanita Stephenson MD [address] [place] [address],[address], [place], [phone], [facility] 4 12:19:21 59615 Ativan medicatio n Not available Not available Not available 06/04/2024 50270 9 RxNorm Juanita Stephenson MD [address] [place] [address],[address], [place], [phone], [facility] 12:19:26 41328 Substance with sulfonami de structure and antibacte rial mechanism of action (substanc e) medicatio n Not available Not available Not available 06/06/2024 64650 8003 SNOMED Leila lee [facility] 5 10:45:27 194 Bactrim medicatio n Not available Not available Not available 2022 79087 9 RxNorm Not Available [facility] - production 4 03:49:06 1947 Product containin g penicilli n (product) medicatio n Not available Not available Not available 2022 75685 8001 SNOMED Not Available [facility] - production 4 03:49:06 Medications Name Sig [...] Available N ot Available Vitals Date Recorded Heart rate Respiratory rate Oxygen saturation Oxygen saturation in Arterial blood by Pulse oximetry Body temperature Systolic blood pressure Diastolic blood pressure Provider Name and Address Organization Details Last Updated DateTime 4 69 /min 18 /min 98 % 98 % 98.8 [degF] 142 mm[Hg] 90 mm[Hg] Not Available [facility] - production 4 19:22:41 Date Recorded Body height Oxygen saturation Oxygen saturation in Arterial blood by Pulse oximetry Body temperature Body weight Respiratory rate Heart rate Systolic blood pressure Diastolic blood pressure Provider Name and Address Organization Details Last Updated DateTime 4 160.02 cm 98 % 98 % 98.6 [degF] 62141.6 4 g 19 /min 59 /min 106 mm[Hg] 62 mm[Hg] Not Available [facility] - production 4 15:48:24 Date Recorded Body temperature Respiratory rate Heart rate Oxygen saturation Oxygen saturation in Arterial blood by Pulse oximetry Systolic blood pressure Diastolic blood pressure Provider Name and Address Organization Details Last Updated DateTime 4 97.4 [degF] 18 /min 72 /min 95 % 95 % 121 mm[Hg] 78 mm[Hg] Not Available [facility] - production 4 12:18:46 Date Recorded Oxygen saturation Oxygen saturation in Arterial blood by Pulse oximetry Respiratory rate Heart rate Body temperature Systolic blood pressure Diastolic blood pressure Provider Name and Address Organization Details Last Updated DateTime 5 97 % 97 % 16 /min 79 /min 98.5 [degF] 132 mm[Hg] 84 mm[Hg] Not Available [facility] - production 5 13:05:33 Date Recorded Oxygen saturation Oxygen saturation in Arterial blood by Pulse oximetry Body height Heart rate Respiratory rate Body temperature Body weight Systolic blood pressure Diastolic blood pressure Provider Name and Address Organization Details Last Updated DateTime 5 98 % 98 % 152.4 cm 72 /min 14 /min 97.4 [degF] 99939.8 g 108 mm[Hg] 72 mm[Hg] Not Available [...] SNOMED-CT Code Diagnosis ICD10 Code Diagnosis Note [id number] Juanita Stephenson MD [facility] [address] [place] [phone] 2022 15:58:17 08/01/2022 09:21:00 Localized eruption of skin [id number] R21 ? eczema with early cellulitis and blephariti s- daycare director/sist er states has tolerated benadryl- unsure of dose in the past so will rx lower dose to not over sedate and has had keflex numerous times without problems despite pcn allergy. IS only fed/takes meds via GT. Medic will open capsules for first dose mix in h20- family/ caregiver to give via GT then flush w/ 120 ml h20- advised do not put cortisone cream in or around eye- will rx w/ per GT steroids and topical tobramycin occular ointment. NO vesicles to suggest herpetic involvemen t but I cannot examine/ stain the eye for dendrites so will not use ophthalmic steroid. SYSTEMS ANALYST ENGINEER WILL BILLING SPECIALIST RX TONIGHT- advised give 1 more dose keflex and benadryl tonight then can do q 6 hr tomorrow.A dvised if she develops fever/ marked facial swelling or severe redness/ SOB to go to the ER otherwise f/u with pcp on MONDAY. They verbalized understand ing of all instructio ns. Call from [facility]: SIster stating pharmacy did not want to fill rx for keflex du to pcn allergy- call placed to pharmacy to [facility] RX- informed pharmacy patient has had keflex numerous times per sister her daycare director without reaction [id number] Sandra Hodge MD [facility] [address] [place] [phone] 08/26/2022 19:46:58 08/29/2022 12:59:41 Fever [id number] R50.9 62 yo with significan t developmen jennifer delay (non verbal at baseline) noted to have increase in diarrhea in context of tube feeds change (ran out of normal TF) and today mild fever to 100. No other focal sx- abdomen NTND, no melena/hem atochezia, no SOB, no witnessed aspiration s, no cough, no nasal congestion /sneezing, no known sick contacts. UA negative for nitrites and LE. At this point suspect mild viral process, which may be exacerbati ng her GI symptoms. Reassuring ly able to tolerate fluids well. UA reassuring re UTI. Recommende d continued close observatio n with oral rehydratio n. Educated on warning s/sx to call back or present to ED. [id number] Kaylan Gonsalves MD [facility] [address] [place] [phone] 09/10/2022 19:26:36 09/12/2022 10:37:55 Upper respiratory infection [id number] J06.9 9554 Colin Fernandes MD [facility] [address] [place] [phone] 09/20/2022 14:56:21 09/22/2022 10:00:12 Upper respiratory infection 91118143 J06.9 Patients with severe dementia presents with recurrent cough. She was diagnosed with bacterial infection and treated with 10-day course of cipro 500mg. Symptoms resolved and she was feeling well. However, after stopping the antibiotic symptoms recurred. She has a cough productive of thick green-yell ow sputum. She is not in respirator y distress or short of breath, and is desaturati ng. She is using levalbuter ol nebulizers and OTC cough suppressan t. I do not feel there is a need to re-treat with antibiotic s.Plan- [place]cribe [place] [id number] Kameron Peng MD [facility] [address] [place] [phone] 10/08/2022 17:36:04 10/10/2022 10:22:21 Viral upper respiratory tract infection [id number] J06.9 COVID/flu negative. Normal O2 sats. No respirator y distress. Given hx of recent bronchitis , on multiple antibiotic s with persistent symptoms, advised to call PCP this weekend/Mo nday in order to obtain CXR to rule out underlying pneumonia prior to treating with antibiotic s [id number] LANG ALMODOVAR MD [facility] [address] [place] [phone] 08/16/2023 13:48:40 08/16/2023 22:40:39 Friction blister without infection [id number] T14.8XXA Evaluation in the field was performed by my collar worker colleague, as noted above, I provided real-time direction and supervisio n for this visit. The evaluation revealed 63 yo female with hx of seizure, paraplegia , g-tube fed, who has hx of seizure but today had a seizure that lasted longer than usual ( had stopped by the time of the visit and neurology was contacted by the cremator ) and concerns for blood blisters in the buttocks.C aretaker reports that she uses Silver sulfadiazi ne cream , Anthony' s Butt Paste and mepilex to cover them .Pt sits in the wheelchair from 1-7 PM . They have donut cushionCCA is working for increased help ( cremator is 73 yo ) but is having a hard time to find staff given location. Impression :Friction blisters ( Leukocytoc lastic vasculitis ) Plan:Given no signs of infection no abx neededCare teacher advised to continue :-Gently wash the blister with mild soap and water. -Continue to apply Silver sulfadiazi ne cream , Anthony' s Butt Paste and cover with mepilex like she is doing to prevent opening of the skin-May use Tylenol to help if pain-Advis ed turning every 2 hrs while in bed to prevent skin breakdown and use of donut cushion while in the chair -No signs of infection on the toe- followed by podiatry, or G-tube-Car e taker had gotten in touch with the neurologis t. Primary care, consider: Please consider increasing ASSET ANALYST help given the fact pt is full assist and the cremator is old. Dispositio n: We discussed the diagnostic uncertaint y of home visits and the risk associated with this. In this case, the patient and I felt this to be an acceptable and reasonable amount of risk given the benefit of avoiding an ED visit. We discussed the need to seek care urgently/e mergently in the setting of any new or worsening serious symptoms, particular ly fever, chills, ongoing seizure , opening skin with bleeding, or any other concerns. [id number] ANTONELLA KEYES MD [facility] [address] [place] [phone] 09/27/2023 19:02:32 09/27/2023 22:02:46 Urinary symptoms [id number] R39.9 Acute urin taran tract infection 251334502 N39.0 [id number] LANG ALMODOVAR MD [facility] [address] [place] [phone] 04/19/2024 15:48:18 04/20/2024 13:11:03 Onycholysis 65396523 L60.1 Evaluation in the field was performed by my collar worker colleague, as noted above, I provided real-time direction and supervisio n for this visit. The evaluation revealed a 63-year-ol d female with a past medical history of Down syndrome, wheelchair bound, presenting with concerns for a left big toe nail bed infection. According to her sister, the patient was in her wheelchair a few days ago when, during a turn, her left big toe caught on the door, causing the nail to essentiall y fall off (it had been half off for a few weeks). Her sister has been cleaning it with Betadine and hydrogen peroxide, using Neosporin and gauze. The sister feels the nail bed is more red, with possible infection, but the patient denies warmth or swelling of the toe. VS stable, afebrile.E xam reveals complete loss of the left big toe nail, with mild bleeding at the nail bed. No erythema or swelling of the toe or around the nail bed. Bilateral feet are purplish in color, with normal temperatur e as per discussion with the collar worker. Allergies reviewed. Impression :Onycholys is left big toe Plan:-A prescripti on for mupirocin was sent to her pharmacy.- The sister was advised to avoid trauma and to keep the nail dry and clean to prevent infection. -The sister was instructed to call us if there is any erythema around the nail bed, fever, chills, swelling of the toe, or any other concerns.- F/U with podiatry as scheduled- Red flag symptoms were discussed with the sister. Primary care, consider__ _ Dispositio n: We discussed the diagnostic uncertaint y of home visits and the risk associated with this. In this case, the patient and I felt this to be an acceptable and reasonable amount of risk given the benefit of avoiding an ED visit. We discussed the need to seek care urgently/e mergently in the setting of any new or worsening serious symptoms, particular ly fever, chills, swelling of the toe, erythema around the nail bed, increased pain, nausea, vomiting or any other concerns [id number] Juanita Stephenson MD [facility] [address] [place] [phone] 06/04/2024 12:18:41 06/04/2024 22:16:07 Urinary symptoms [id number] R39.9 Medic attempted straight cath- unable to get any urine/ labs drawn / medic unable to get IV access /family able to give patient 6 fluid ounces via G-tube and then she was able to void spontaneou sly. /Urine concerning for UTI. She was effectivel y treated with cephalexin in September of this year. Will repeat the prescripti on as the liquid is easy to give via G-tube /advised to flush the G-tube with 120 to 150 mL after each medication administra tion. Advised continue tylenol 650 mg 3 x per day via GT-Red flags reviewed with sister. Advised to increase G-tube fluids as BUN is borderline at 18. Will call if urine culture indicates the need for different antibiotic . Advise close follow-up with PCP Sister verbalized understand ing of all instructio ns [id number] Adair Macedo MD [facility] [address] [place] [phone] 06/08/2024 13:05:30 06/08/2024 18:57:04 Acute urinary tract infection [id number] N39.0 Here for recheck of patient who is non-verbal and clinically complex, recently seen for suspected UTI. Doing much better clinically and urine has cleared. Culture was freddy but high CFU and with assoc sx. Seems as if she has improved. Discussed recheck UA but will defer as would need cath and would not likely change mgmt. Impression : Treated UTI Plan:Expec tant mgmt. [id number] Kavita Gardner MD Main - [address] [phone] 07/23/2024 18:58:08 07/24/2024 10:01:12 Sample sent to laboratory for test [id number] Z75.2 Health Concerns Section Related Observation LastModified by Organization Detai ls LastModified Time None Recorded Concern Status LastModified by Organization Details LastModified Time None Recorded Advance Directives Directive None Recorded Payers Encounter Date Sequence Insurance Name Policy Number Policy Ballard Covered Member ID Ballard Member ID Guarantor Name 09/27/2023 1 [facility] [employer] - DOS ON OR AFTER 2022 - DUAL ELIGIBLE - RESIDENTIAL OPTIONS AND ONE CARE (MEDICARE REPLACEMENT/ADV ANTAGE - HMO) [employer] [id number] [employer] 04/19/2024 1 [employer] [facility] [employer] - DOS ON OR AFTER 2022 - DUAL ELIGIBLE - RESIDENTIAL OPTIONS AND ONE CARE (MEDICARE REPLACEMENT/ADV ANTAGE - HMO) [employer] [id number] [employer] 06/04/2024 1 [facility] [employer] [facility] - DOS ON OR AFTER 2022 - DUAL ELIGIBLE - RESIDENTIAL OPTIONS AND ONE CARE (MEDICARE REPLACEMENT/ADV ANTAGE - HMO) [employer] [id number] [employer] 06/08/2024 1 [facility] - DOS ON OR AFTER 2022 - DUAL ELIGIBLE - RESIDENTIAL OPTIONS AND ONE CARE (MEDICARE REPLACEMENT/ADV ANTAGE - HMO) [employer] [id number] [employer] 07/23/2024 1 [facility] DOS ON OR AFTER 2022 - DUAL ELIGIBLE - RESIDENTIAL OPTIONS AND ONE CARE (MEDICARE REPLACEMENT/ADV ANTAGE - HMO) [employer] [id number] [employer] Notes Date Note Type Note Provider Name and Address Organization Details Recorded Time 09/27/2023 text/html [facility] Nurse Triage Notes (Leila Becerra): Reason For Request: Pt's sister reporting a potential kidney or bladder infection Chief Complaints: UTI/Pyelonephritis PMH: Severe Dementia Allergies: Bactrim, Penicillin Comments: Sister reports malodorous urine x3 days. Urine clear. No fevers. No signs/symptoms of discomfort. Not recently treated for UTI. ..................... ..................... ..................... ..................... ..................... ..................... ............... Otr Van Cdl Truck Driver Note From Louie Dominguez: Dispatched to the call address for the female with possible UTI. Pt is non verbal/non ambulatory at baseline. Family/caregivers state for the last 3 days Pts urine has been increasingly foul smelling. Pt is unable to advocate any pain. Family denies v/d or difficulty breathing. Family does advise that Pt has been more lethargic as of the last couple of days. Pt was found laying in bed, alert and oriented to name, airway open and patent, breathing non labored, -JVD, -HEENT, skin PWD with good turgor, mucous membranes pink and moist, abd soft non tender/distended, pupils PERRL, -CVA tenderness, UA (+) sample obtained via strait cath. C consulted. Script called into preferred pharmacy. Red flags discussed. ALL times are approx. ..................... ..................... ..................... ..................... ..................... ..................... ............... Disposition: Fulfilled ANTONELLA KEYES MD [address] [facility],[address], [place], [address], [place] [facility] 09/27/2023 20:43:47 04/19/2024 text/html [facility] Nurse Triage Notes (Deepali Ramirez): Reason For Request: Patient hurt her toe, normally it gets infected, Hit the door hinge, and now the big toe nail is totally off, wants inspected for infection, and wound care. Chief Complaints: Wound care PMH: Epilepsy/Seizure Disorder, Sleep Apnea, Dementia (e.g., Alzheimer's Disease) Comments: Patient sister calling in to place a referral, patient identified via name and . In addition to PMH patient has Down Syndrome. Patient was in her wheelchair a few days ago, during a turn her left big toe caught the door, and the nail essentially fell off. Her sister has been cleaning in with betadine and hydrogen peroxide, using neosporin and gauze. Sister feels like the nail bed is more red, with possible infection, around nail bed is purplish, denies warmth or swelling, temp 97.7. Sister would like the toe evaluated. ..................... ..................... ..................... ..................... ..................... ..................... ............... Otr Van Cdl Truck Driver Note From Dickson Rodriguez: Pt chief complaint of left big toe trauma that resulted in the eventual removal of toe nail. Pt sister is calling into [facility] for a consultation of the area and if there is a possible infection. Pt sister states that approx 5 day prior to her [facility] appointment the pt was being taken from her bedroom via wheelchair and into the living room when her protruding foot struck the frame of her door. Sister than noted the pt to nail to fall off. Sister states that the nail in question was already falling off and that the frame to the door only made this happen sooner. Pt does not express any pain and does not show any signs such a sweeping, grimace and yelling. Sister has been treating area with Nesporin as well as light gauze dressing. No signs of CP, SOB and or NVD are noted. Non neural focal exam, Afebrile, Vitals WNL for the pt. Lungs are clear bilaterally, Benign abdominal assessment. Pt lower extremities do show pumping discoloration bilaterally which is being seen to by a bucket wash operator. The area in question is noted to no be draining bleeding or tender to the pt on palpation. Pt does show positive sensation in all extremities, [facility] Lang Almodovar consultedPt sent a topical antibiotic to her local pharmacy for use on the affected area. Pt sister educated on red flag S&S and informed to call emergency services if any begin to present. ..................... ..................... ..................... ..................... ..................... ..................... ............... [facility] Consulted: Lang Almodovar ..................... ..................... ..................... ..................... ..................... ..................... ............... Disposition: Sanjay ALMODOVAR MD [address] [facility],[address], [place], [address], [place] [employer] 04/19/2024 21:45:51 06/04/2024 text/html CRC Nurse Triage Notes (Leila Becerra - RN): Reason For Request: Possible UTI, urine smells bad.Denies: Unable to void greater than 5 hours Erection that will not go away after 2 hours Fall or trauma that results in urinary incontinence in the setting of pain Fall or injury that results in incontinence in the absence of pain Lower back pain either unilateral or bilateral, unable to void, painful urination -hematuria Painful urination Frequent and increased urination with flank pain Painful urination with or without fever Inability to fully empty bladder Chief Complaints: Urinary symptomsPMH: Epilepsy/Seizure Disorder, Sleep Apnea, Dementia (e.g., Alzheimer's Disease)Comments: Patient's sister reporting urine smells foul odor when changing her brief this afternoon. No s/s of discomfort. No hematuria. Not hot to touch. Temp 97.9 today. Not recently treated for a UTI. Voiding normal amounts. Per sister, moist mucous membranes. Education provided on the response time and the member was advised to monitor reported s/s and seek emergency treatment if needed. O[employer] Driver Organization Information for Soha Kamporfirio Legal Name: [employer].? ? Address: [address] [place] [address], [place] Supervisor: Brett Vila MD CLIA No.: [id number] Otr [employer] Driver POC Test Results from Soha Kam Urine Dipstick (12:43:10) Urine leukocytes: 125++ MITCHEL Urine nitrites: - NIT Urine urobilinogen: 0.2 URO Urine protein: 30+ PRO Urine pH: 6.5 pH Urine blood: + BLO Urine specific gravity: 1.005 SG Urine ketones: - KET Urine bilirubin: - MILO Urine glucose: - GLU Attachments uploaded as part of this test result can be found under Documents section. iSTAT Chem8+ (12:57:50) Na: 140 mEq/L K: 4.2 mEq/L Cl: 105 mEq/L iCa: 1.12 mmol/L TCO2: 27 mmol/L Glu: 94 mg/dL BUN: 18 mg/dL Crea: 0.7 mg/dL Hct: 47 % Hb: 16.0 g/dL A Attachments uploaded as part of this test result can be found under Documents section. ..................... ..................... ..................... ..................... ..................... ..................... ............... Otr Van C[employer] Truck Driver Note From Soha Kam: Sent to a call for a pt with foul-smelling urine. SC8 arrives on scene, pt is alert and non-verbal at baseline. Pt has a g-tube and does not take anything by mouth. Pt's sister (primary resident care technician) and PROOF COIN COLLECTOR are on scene with pt. Pt's sister states pt has history of epilepsy, dementia, and UTI's. Sister states pt is allergic to the following: Bactrim, PCN, Doxycycline, Fentanyl, and Ativan; and has diarrhea when taking Azithromycin and Cefpodoxime. Sister states pt has recently had diarrhea which was resolved after increasing fiber in diet. Family states pt had foul-smelling urine starting last night, and PROOF COIN COLLECTOR notes decreased urine output today. Family denies noting any signs of pt being in pain, respiratory distress, vomiting, diarrhea, or fever. Family states pt has not had any fluids since 6am. Family states pt usually receives Tylenol 650mg TID via g-tube, but this morning's dose was held. Family notes pt has bed sores they've been treating for approx 1 year. Picture uploaded to [employer]; BP:121/78, P:72, RR:18, SpO2:95% RA, T:97.4; Head: unremarkable; Lung sounds: clear bilaterally; Abdomen: soft, non-tender, no distention; Back/buttocks: no CVA tenderness, Superficial bed sores noted; Extremities: unremarkable; Skin: pink, warm, dry; Straight catheterization performed using 12fr catheter, no urine obtained. [facility] consulted and orders 1 liter IV Normal saline and BMP. IV access: unsuccessful; Venous blood draw performed; Istat Chem8+ results: uploaded to [employer]. Pt voids into urine cup; Urine: yellow and clear; Urine dip performed, results uploaded to [employer]; [facility] removes IV fluid orders; and orders urine culture to be sent to [facility]. [facility] sends script to pt's pharmacy for Cephalexin suspension. Family is advised to increase fluids. Family advised pt will be prescribed Cephalexin 10ml via g-tube followed by flushing g-tube with 120-150ml water every 8 hrs for 7 days. Red flags discussed. Family has no further questions. ..................... ..................... ..................... ..................... ..................... ..................... ............... [facility] Consulted: Juanita Stephenson ..................... ..................... ..................... ..................... ..................... ..................... ............... Disposition: Fulfilled SEGMD: Last results I have is from 09/27/23- Grew Klebsiella staples sensitive except to Augmentin. Pat allergies reviewed. / She is non verbal/ only GT fed Juanita Stephenson MD [address] [facility],[address], [place], [address], [facility] - [facility] 06/04/2024 18:04:08 06/08/2024 text/html CRC Nurse Triage Notes (Deepali Ramirez - RN): Chief Complaints: Urinary symptoms PMH: Epilepsy/Seizure Disorder, Sleep Apnea, Dementia (e.g., Alzheimer's Disease) Comments: patient seen on 06/04 by [facility] for urinary symptoms- malodorous urine. cx resulted on 06/06 showing mixed urogenital freddy >100,000. Patient was started on Keflex. Spoke to sister today who reports odor improved the next day, but then last night odor became stronger again. No new symptoms. Dr. Briones reviewed pt case. [facility] recommendation: Patient should be instructed to complete antibiotics and see their primary doctor tomorrow for re-evaluation. if unable to see PCP a new insted visit should be placed over the weekend for repeat evaluation and culture. Patient is homebound--- 3 patients sister calling in as she had frequent diarrhea yesterday, she started a new TF 3 days ago, and has received cranberry juice, and received second dose of keflex yesterday. Patient inclined to diarrhea, and takes immodium. She is requesting a visit tomorrow 06/08- AC ..................... ..................... ..................... ..................... ..................... ..................... ............... Otr Van Cdl Truck Driver Note From Louie Dominguez: Dispatched to the call address for the female who had a UTI. Pt is non verbal at baseline. Pts sister is resident care technician. She advises that a few days ago she was diagnosed with an UTI. Pt has been taking Keflex, sister advises that she appears to be better as her urine is no longer odorous and it is more clear yellow rather than brown. Pt appears to be acting to her baseline per cremator. Pt was found sitting in bed, in no apparent distress, airway open and patent, breathing non labored, acting to her normal self (based on previous encounters), abd soft non tender/distended, pupils PEERL, -CVA tenderness, skin PWD with good turgor, mucous membranes pink and moist. [facility] consulted. Red flags discussed. ALL times are approx. ..................... ..................... ..................... ..................... ..................... ..................... ............... [facility] Consulted: Delfin Macedo ..................... ..................... ..................... ..................... ..................... ..................... ............... Disposition: Fulfilled Adair Macedo MD [address] [place] [address],[address], [place], [address], [employer] 06/08/2024 15:38:12 07/23/2024 text/html CRC Nurse Triage Notes (Deepali [...] will call back, once labs are received- Lab order received, and uploaded- Patient with down syndrome, nonverbal and clinical complex, and in need of a thyroid panel- ..................... ..................... ..................... ..................... ..................... ..................... ............... Otr Van Cdl Truck Driver Note From Cornel Kaufman: Patient in wheelchair, nonverbal, at baseline according to caregiver. PCP requested labs to check routine thyroid levels. Unable to gauge complaint, if any. Patient pink warm dry secondary exam unremarkable. Lung sounds clear negative increase breathing. Negative edema noted. Sample obtained and brought to [facility]. ..................... ..................... ..................... ..................... ..................... ..................... ............... [facility] Consulted: Kavita Gardner ..................... ..................... ..................... ..................... ..................... ..................... ............... Disposition: Fulfilled Kavita Gardner MD [address] [facility],[address], [place], [address], JOHN - [employer] ESTHER GEORGE 07/23/2024 19:34:53 OBGyn Episode No OBEpisode recorded.
--- OUTSIDE RECORDS SUMMARY | 2024-08-07 17:29 | XMS_ITS | Patient Health Record ---
Author Organization [facility] Address [address] [place] [phone] Care Team Providers Care Cattle Inspector Name Role Phone Lane Estevez MD Primary Care Provider Michael Jaime Jr Unavailable Reason For Referral No Information Problems Problem Type SNOMED Code ICD Code Onset Dates Problem Status W/U Status Risk Notes Problem Dysphagia (32124017) Dysphagia (R13.10) Active confirmed Problem 30377306 Dysphagia, unspecified type (R13.10) Active confirmed Problem 489895246 Malfunction of gastrostomy tube (K94.23) Active confirmed Encounters Encounter Location Date Provider Diagnosis [facility] [address] [place] [id number] 10/31/2023 Michael Sevilla Jr Dysphagia R13.10 [facility] [place] [address] [place] [id number] 02/21/2024 Michael Sevilla Jr Dysphagia R13.10 and Gastrostomy malfunction K94.23 [facility] [address] [place] [phone] 10/13/2023 Michael Sevilla Jr [facility] [address] [place] [phone] 10/23/2023 Michael Sevilla Jr [facility] [address] [place] [phone] 10/25/2023 Michael Sevilla Jr [facility] [address] [place] [phone] 02/13/2024 Michael Sevilla Jr [facility] [address] [place] [phone] 02/20/2024 Michael Sevilla Jr [facility] [address] [place] [phone] 03/27/2024 Michael Sevilla Jr [facility] [address] [place] Moran [phone] 06/28/2024 Michael Sevilla Jr Assessments Encounter Date Diagnosis (ICD Code) Assessment Notes Treatment Notes Treatment Clinical Notes Section Notes 10/31/2023 Dysphagia (ICD-10 - R13.10) 02/21/2024 Gastrostomy malfunction (ICD-10 - K94.23) 02/21/2024 Dysphagia (ICD-10 - R13.10) Plan Of Treatment No Information Insurance Providers Payer Name Payer Address Payer Phone Subscriber Number Group Number Insured Name Patient Relationship to Insured Coverage Start Date Coverage End Date [facility] [address] Attn Claims YOBANI Sharma [id number] EDEN BRISCOE Self - patient is the insured
--- OUTSIDE RECORDS SUMMARY | 2024-08-07 17:29 | XMS_ITS ---
Author Organization [facility] Address [address] [place] [phone] Care Team Providers Care Press Tender Name Role Phone Lane Estevez MD Primary Care Provider Michael Jaime Jr Unavailable REASON FOR VISIT g-tube site Encounters Encounter Location Date Provider Diagnosis [facility] [address] [place] [phone] 03/27/2024 Michael Sevilla Jr Plan Of Treatment No Information Progress Notes * RACHNA ALEXANDRIAB:1960 (63 yo F)Acc No.[id number]:03/27/2024 Patient:?EDEN BRISCOE :1960???Age:63 Y???Sex:Female Address:[address] [place] [address], [address] * true * Date:? Generated for Adelinai alma/Alis/eTransmitting on:?08/07/2024 05:28 PM EST
--- OUTSIDE RECORDS SUMMARY | 2024-08-07 17:29 | XMS_ITS | Continuity of Care Document ---
Author Organization [facility] Address [address] [place] [address]- Care Team Providers Care Research Assistant Name Role Phone Lane Estevez MD Primary Care Physician [id number] Date(s): 07/02/24 - 08/01/[address] [id number] Encounter Type: Triage Allergies, Adverse Reactions, Alerts Substance Criticality Severity Reaction Reaction Severity Status codeine Oxcarbazepine Active penicillins rash Active sulfa drugs Active OXcarbazepine Active Ativan Active Bactrim rash Active fentaNYL Active Immunizations Given and Recorded Vaccine Date Status Refusal Reason pneumococcal 23-valent vaccine 02/24/17 Given influenza virus vaccine, inactivated 02/24/17 Give n tetanus-diphtheria toxoids (Td) 12/03/09 Given Medications AutoASV to EPAPmin 9 EPAP max 10 PSmin 3 PSmax 8 AutoASV to EPAPmin 9 EPAP max 10 PSmin 3 PSmax 8, See Instructions, # 1 each, Refills 0, Tot. Refills 0, Maintenance, use overnight and naps from [employer], 07/31/24 8:22:00 PM EST, Compound Start Date: 07/31/24 Status: Ordered Quantity: 1.0 Unit: each Repeat number: 1 donepezil 10 mg oral tablet, disintegrating 1 tablet, By Mouth, Daily at bedtime, # 90 tablet, 3 Refills, Maintenance, 06/26/24 1:43:00 PM EST, [id number] Start Date: 06/26/24 Status: Ordered Quantity: 90.0 Unit: tablet Repeat number: 1 FIRST Omeprazole 2 mg/mL oral suspension 1.25 mL, By Mouth, Daily, # 90 Unknown, 5 Refills, 03/14/22 4:22:00 PM EDT, [id number] Start Date: 03/14/22 Status: Ordered Quantity: 90.0 Unit: Unknown Repeat number: 6 Marla-Tucharissain Expectorant 100 mg/5 mL oral liquid 10 mL = 200 mg, By Mouth, 4 times a day, PRN as needed for congestion, 0 Refills, Maintenance, 01/10/24 10:19:00 AM EDT, Partial fill upon patient request if the prescription is for a schedule II opioid drug. Start Date: 01/10/24 Status: Ordered Repeat number: 1 ipratropium nasal 21 mcg/inh spray See Instructions, SPRAY EACH NOSTRIL 2 TIMES A DAY NEEDED FOR NASAL CONGESTION, # 30 Unknown, 10Refills, Maintenance, 07/09/24 9:43:00 AM EST, [id number], 30, SPRAY EACH NOSTRIL 2 TIMES A DAY NEEDED FOR NASAL CONGESTION Start Date: 07/09/24 Status: Ordered Quantity: 30.0 Unit: Unknown Repeat number: 1 lamotrigine 25 mg oral tablet, chewable See Instructions, TAKE 1 TABLET BY MOUTH IN THE MORNING TAKE 3 TABLETS IN THE EVENING, # 360 tablet, 1 Refills, Maintenance, 03/23/22 4:42:00 PM EDT, [id number] Start Date: 03/23/22 Status: Ordered Quantity: 360.0 Unit: tablet Repeat number: 1 levalbuterol 0.31 mg/3 mL inhalation solution See Instructions, 3 mL Inhalation twice daily, 0 Refills, Maintenance, 01/10/24 10:16:00 AM EDT, Solution, Partial fill upon patient request if the prescription is for a schedule II opioid drug. Start Date: 01/10/24 Status: Ordered Repeat number: 1 levETIRAcetam 100 mg/mL oral solution See Instructions, TAKE 2 ML BY MOUTH IN THE MORNING, 3 ML IN THE AFTERNOON AND 14 ML AT NIGHT BY MOUTH, # 1,710 mL, 2 Refills, Maintenance, 01/30/24 1:21:00 PM EDT, [id number] Start Date: 01/30/24 Status: Ordered Quantity: 1710.0 Unit: mL Repeat number: 3 memantine 10 mg oral tablet 1 tablet, By Mouth, Daily, PRESCRIPTION., # 90 tablet, 3 Refills, Maintenance, 03/19/24 8:23:00 PM EDT, [id number] Start Date: 03/19/24 Status: Ordered Quantity: 90.0 Unit: tablet Repeat number: 1 midazolam 5 mg/inh nasal spray See Instructions, Use one 5 mg nasal spray in one nostril. May repeat once in 10 minutes if needed in other nostril, # 2 kit, 3 Refills, Soft Stop, 03/20/24 12:45:00 PM EDT, [id number], Partial fill upon patient request if the prescription is for a schedule II opioid drug. Start Date: 03/20/24 Status: Ordered Quantity: 2.0 Unit: kit Repeat number: 4 Nystatin Topical 1 applicator, Topically, 3 times a day, 0 Refills, Maintenance, Powder Start Date: 03/06/17 Status: Ordered Repeat number: 1 Synthroid 0.088 mg oral tablet 1 tablet = 88 mcg, By Mouth, Daily, Brand name only, # 90 tablet, 3 Refills, Maintenance, 04/12/24 4:30:00 PM EST, Tablet, [id number] Start Date: 04/12/24 Status: Ordered Quantity: 90.0 Unit: tablet Repeat number: 4 Indication: Hypothyroidism, unspecified Tylenol 325 mg oral tablet 650 mg, 2, tablet, By Mouth, Every 4 hours, PRN, # 60 tablet, Refills 0, Maintenance, for pain, 06/11/19 9:16:00 PM EST Start Date: 06/11/19 Status: Ordered Quantity: 60.0 Unit: tablet Repeat number: 1 Vimpat 10 mg/mL oral solution 11 mL = 110 mg, By Mouth, Daily at bedtime, for 30 days, BRAND MEDICALLY NECESSARY. NO SUBSTITUTIONS., # 330 mL, 5 Refills, Hard Stop 03/20/26 12:59:00 PM EDT, 09/21/25 12:59:00 PM EDT, [id number], Partial fill upon patient request if the prescription is for a schedule II opioid drug. Start Date: 09/21/25 Stop Date: 03/20/26 Status: Ordered Quantity: 330.0 Unit: mL Repeat number: 6 Vimpat 10 mg/mL oral solution 11 mL = 110 mg, By Mouth, Daily at bedtime, for 30 days, BRAND MEDICALLY NECESSARY. NO SUBSTITUTIONS., # 330 mL, 5 Refills, Hard Stop 09/21/25 12:59:00 PM EDT, 03/25/25 12:59:00 PM EDT, [id number], Partial fill upon patient request if the prescription is for a schedule II opioid drug. Start Date: 03/25/25 Stop Date: 09/21/25 Status: Ordered Quantity: 330.0 Unit: mL Repeat number: 6 Vimpat 10 mg/mL oral solution 10 mL = 100 mg, By Mouth, Daily at bedtime, for 30 days, BRAND MEDICALLY NECESSARY. NO SUBSTITUTIONS., # 300 mL, 5 Refills, Hard Stop 03/25/25 12:59:00 PM EDT, 09/26/24 12:59:00 PM EDT, [id number], Partial fill upon patient request if the prescription is for a schedule II opioid drug. Start Date: 09/26/24 Stop Date: 03/25/25 Status: Ordered Quantity: 300.0 Unit: mL Repeat number: 6 Problem List Condition Confirmation Course Effective Dates Status Health atus Informant Trisomy 21 Confirmed Active GERD without esophagitis Confirmed Active Hypothyroid Confirmed Active LEONIE on CPAP Confirmed Active Osteoporosis Confirmed Active Seizure disorder Confirmed Active Social History Social History Type Response Smoking Status Never smoker entered on: 09/29/16 Sex Sex Representation Female (finding) Patient Care team information Care Team Personnel Name: Heidi Winn Position: [facility] RN Member Role: Primary Care Nurse Name: Mercedes Samuels RN Position: [facility] ZAC Office Staff Member Role: Primary Care Nurse Name: Ron Hsu RN Position: [facility] RN Member Role: Primary Care Nurse Name: Adair Chanel RN Position: [facility] Outreach Member Role: Primary Care Nurse Name: Sarah Chi RN Position: [facility] RN Member Role: Primary Care Nurse Name: Tim Vazquez RN Position: [facility] RN Member Role: Primary Care Nurse Name: Desiree Roland RN Position: [facility] Rohit RN Member Role: Primary Care Nurse Name: Scot Cuba RN Position: [facility] RN Member Role: Primary Care Nurse Name: Nanette Cai RN Position: [facility] RN Member Role: Primary Care Nurse Name: Lane Estevez MD Position: Reference Physician Member Role: PCP Address: [address] [place] [address] Telecom: Name: Kenneth Devries RN Position: S RN Member Role: Primary Care Nurse Name: Flora Leon RN Position: [facility] RN Member Role: Primary Care Nurse Care Team Related Persons Name: TOSHIA COOK Insurance Providers Guarantor name: EDEN [facility] Plan Information #: 1 Payer: [facility] [employer]/[facility] Member Number: NA Policy Number: NA Group Number: NA
--- OUTSIDE RECORDS SUMMARY | 2024-08-07 17:29 | XMS_ITS ---
Author Organization [facility] Address [address] [place] [address] Care Team Providers Care Blackjack Supervisor Name Role Phone Lane Esetvez MD Primary Care Provider Michael Jaime Jr Unavailable REASON FOR VISIT g tube change in minor surgery Encounters Encounter Location Date Provider Diagnosis [facility] [place] [address] [place], [place] [phone] 02/21/2024 Michael Sevilla Jr Dysphagia R13.10 and Gastrostomy malfunction K94.23 Assessments Encounter Date Diagnosis (ICD Code) Assessment Notes Treatment Notes Treatment Clinical Notes Section Notes 02/21/2024 Dysphagia (ICD-10 - R13.10) 02/21/2024 Gastrostomy malfunction (ICD-10 - K94.23) Plan Of Treatment No Information Progress Notes * KELLY BRISCOE:1960 (64 yo F)Acc No.[id number]:02/21/2024 Progress Notes Patient:?EDEN BRISCOE Provider:?Michael Sevilla MD :1960???Age:63 Y???Sex:Female D ate:02/21/2024 Address:[address] [place], [place] [phone] Pcp:Lane Estevez MD Subjective: * Chief Complaints: * ???1. G tube change in minor surgery. * Medical History:? Objective: * Vitals:? Assessment: * Assessment: 1.?Dysphagia - R13.10 (Prima ry)???2.?Gastrostomy malfunction - K94.23??? Plan: * Treatment: * Procedure Codes:?01555 REPOS ITION GASTROSTOMY TUBE * * The named appointment provid er may or may not be the originator of this progress note, and it is not deemed complete until electronically signed by the appointment provider. Sign off status: Pending * Provider:?Michael Sevilla MD Date:?0 02/21/2024 Generated for Jaylon marquez/Alis/Vicky on:?08/07/2024 05:29 PM EST
--- OUTSIDE RECORDS SUMMARY | 2024-08-07 17:29 | XMS_ITS | Continuity of Care Document ---
Author Organization [facility] Address [address] [facility], [address] Floor, [address] [place] [phone] Care Team Providers Care Computerized Mill Mill Recorder Name Role Phone Lane Estevez MD Primary Care Physician Encounter [facility] [place] Date(s): 06/10/24 - 07/10/24 [facility] [address] [facility] 3rd Floor, [address] [place] [phone]- Encounter Type: Triage Allergies, Adverse Reactions, Alerts Substance Criticality Severity Reaction Reaction Severity Status codeine Oxcarbazepine Active penicillins rash Active sulfa drugs Active fentaNYL Active OXcarbazepine Active Ativan Active Bactrim rash Active Immunizations Given and Recorded Vaccine Date Status Refusal Reason pneumococcal 23-valent vaccine 02/24/17 Given influenza virus vaccine, inactivated 02/24/17 Give n tetanus-diphtheria toxoids (Td) 12/03/09 Given Medications ASV EPAP 8 PSmin 3 PSmax 8 start 7 ramp 15 min ASV EPAP 8 PSmin 3 PSmax 8 start 7 ramp 15 min, See Instructions, # 1 each, Refills 0, Tot. Refills0, Maintenance, use overnight and naps from [employer], 07/09/24 9:45:00 AM EST, [facility] Start Date: 07/09/24 Status: Ordered Quantity: 1.0 Unit: each Repeat number: 1 donepezil 10 mg oral tablet, disintegrating 1 tablet, By Mouth, Daily at bedtime, # 90 tablet, 3 Refills, Maintenance, 06/26/24 1:43:00 PM EST, [id number] Start Date: 06/26/24 Status: Ordered Quantity: 90.0 Unit: tablet Repeat number: 1 FIRST Omeprazole 2 mg/mL oral suspension 1.25 mL, By Mouth, Daily, # 90 Unknown, 5 Refills, 03/14/22 4:22:00 PM EDT, [id number] Start Date: 03/14/22 Status: Ordered Quantity: 90.0 Unit: Unknown Repeat number: 6 Marla-Tussin Expectorant 100 mg/5 mL oral liquid 10 [...] Maintenance, 07/09/24 9:43:00 AM EST, [facility], 30, SPRAY EACH NOSTRIL 2 TIMES A DAY NEEDED FOR NASAL CONGESTION Start Date: 07/09/24 Status: Ordered Quantity: 30.0 Unit: Unknown Repeat number: 1 lamotrigine 25 mg oral tablet, chewable See Instructions, TAKE 1 TABLET BY MOUTH IN THE MORNING TAKE 3 TABLETS IN THE EVENING, # 360 tablet, 1 Refills, Maintenance, 03/23/22 4:42:00 PM EDT, [id number] Start Date: 03/23/22 Status: Ordered Quantity: 360.0 [...] Refills, Maintenance, 03/19/24 8:23:00 PM EDT, [id number] Start Date: 03/19/24 Status: Ordered Quantity: 90.0 Unit: tablet Repeat number: 1 midazolam 5 mg/inh nasal spray See Instructions, Use one 5 mg nasal spray in one nostril. May repeat once in 10 minutes if needed in other nostril, # 2 kit, 3 Refills, Soft Stop, 03/20/24 12:45:00 PM EDT, [id number], Partial fill upon patient request if [...] Maintenance, 04/12/24 4:30:00 PM EST, Tablet, [id number] Start Date: 04/12/24 Status: Ordered Quantity: [...] PM EDT, 09/21/25 12:59:00 PM EDT, [id number], Partial fill upon patient request if [...] PM EDT, 03/25/25 12:59:00 PM EDT, [id number], Partial fill upon patient request if [...] PM EDT, 09/26/24 12:59:00 PM EDT, [id number], Partial fill upon patient request if the prescription is for a schedule II opioid drug. Start Date: 09/26/24 Stop Date: 03/25/25 Status: Ordered Quantity: 300.0 Unit: mL Repeat number: 6 Problem List Condition Confirmation Course Effective Dates Status Health St atus Informant Trisomy 21 Confirmed Active GERD without esophagitis Confirmed Active Hypothyroid Confirmed Active LEONIE on CPAP Confirmed Active Osteoporosis Confirmed Active Seizure disorder Confirmed Active Social History Social History Type Response Smoking Status Never smoker entered on: 09/29/16 Sex Sex Representation Female (finding) Patient Care team information Care Team Personnel Name: Heidi Winn Position: [facility] RN Member Role: Primary Care Nurse Name: Mercedes Samuels RN Position: [facility] ZAC Office Staff Member Role: Primary Care Nurse Name: Ron Hsu RN Position: [facility] RN Member Role: Primary Care Nurse Name: Adair Chanel RN Position: [facility] Outreach Member Role: Primary Care Nurse Name: Sarah Chi RN Position: [facility] RN Member Role: Primary Care Nurse Name: Tim Vazquez RN Position: [facility] RN Member Role: Primary Care Nurse Name: Desiree Roland RN Position: [facility] Rohit RN Member Role: Primary Care Nurse Name: Scot Cuba RN Position: [facility] RN Member Role: Primary Care Nurse Name: Nanette Cai RN Position: [facility] RN Member Role: Primary Care Nurse Name: Lane Estevez MD Position: Reference Physician Member Role: PCP Address: [address] [place] [address]- Telecom: Name: Kenneth Devries RN Position: [facility] RN Member Role: Primary Care Nurse Name: Flora Leon RN Position: [facility] RN Member Role: Primary Care Nurse Care Team Related Persons Name: TOSHIA COOK Insurance Providers Guarantor name: [facility] Information #: 1 Payer: [facility] Member Number: NA Policy Number: NA Group Number: NA
== END 2024-08-07 17:04 | disposition home or self-care (01) ==
PROVIDERS: Emergency Provider Emergency Medicine; PCP Internal Medicine
DX: Z43.1 Encounter for attention to gastrostomy (principal); R13.10 Dysphagia, unspecified; Q90.9 Down syndrome, unspecified
CPT/HCPCS: 43762; 99283

== ENCOUNTER → 2024-08-07 14:28 | Outpatient (BNV) | payer OTHER, SELFPAY | PROVIDERS: Emergency Provider Emergency Medicine; PCP Internal Medicine; Visit Provider Physician Assistant Surgical | DX: Z93.1 Gastrostomy status (principal) | CPT/HCPCS: 43762; 99284 ==

== ENCOUNTER 2024-10-11 15:58 | Outpatient (AMB) | payer OTHER, SELFPAY ==
[2024-10-11 15:58] VITALS: BP 126/62; PULSE 64; TEMP 36.2; O2SAT 95
--- NOTE | 2024-10-11 15:58 | A.OFFPC_ITS ---
Vital Signs 10/11/24 15:58 Height 5 ft 1 in BMI Reason not done Patient refused/unable BP 126/62 Blood Pressure Location Rt brachial Position Sitting Pulse 64 Pulse Source Pulse Oximeter Temp 97.1 F Temp Source Temporal Artery Scan Pulse Oximetry (%) 95 Oxygen Delivery Method Room Air Intake Visit Reasons: downs syndrome Allergies fentanyl [FENTANYL] Allergy (Intermediate, Verified 08/07/24 14:44) UNKNOWN codeine [CODEINE] Allergy (Unknown, Verified 08/07/24 14:44) UNKNOWN lorazepam [From ATIVAN] Allergy (Unknown, Verified 08/07/24 14:44) UNKNOWN oxcarbazepine [OXCARBAZEPINE] Allergy (Unknown, Verified 08/07/24 14:44) UNKNOWN penicillin V Allergy (Unknown, Verified 08/07/24 14:44) Unknown Penicillins [PENICILLINS] Allergy (Unknown, Verified 08/07/24 14:44) DIFFICULTY BREATHING Sulfa (Sulfonamide Antibiotics) [SULFA (SULFONAMIDE ANTIBIOTICS)] Allergy (Unknown, Verified 08/07/24 14:44) DIFFICULTY BREATHING famotidine [From Pepcid] Adverse Reaction (Intermediate, Verified 08/07/24 14:44) diarrhea levofloxacin [From LEVAQUIN] Adverse Reaction (Intermediate, Verified 08/07/24 14:44) hallucinations doxycycline Adverse Reaction (Mild, Verified 08/07/24 14:44) Diarrhea Tobacco use date assessed: 07/12/24 Dental Screening Dental Screen Date: 07/12/24 [facility] Medical History CHF (congestive heart failure) Physical deconditioning Tracheobronchitis G tube feedings Diastolic heart failure Pneumonia MSSA bacteremia Unspecified skin changes Seizure disorder Respiratory distress Aspiration into airway Dysphagia Dementia Toxic metabolic encephalopathy Epilepsy Hypoxemia Dysphagia causing pulmonary aspiration with swallowing LEONIE on CPAP Down syndrome Surgical History History of back surgery Social History Household Members: Family Household Members Other:: sister Housing: House Do you presently have visiting nurse or other home services: Yes Alcohol intake: never Comment: family member in room Patient Tobacco Use Status: Never used Tobacco e-Cigarette/Vaping Use: Never Used Second Hand Smoke Exposure: No Advance Directives Date on File: 06/18/23 service: No Current occupational status: disabled Cognitive needs: Yes (wheelchair) Hearing needs: No Vision needs: No Questionnaire Thrive Questionnaire Date Thrive assessed: 07/12/24 ANIYAH-7 AMB Questionnaire ANIYAH-7 Date ANIYAH - 7 assessed: 07/12/24 Source: Developed by Drs. Carlo Donaldson, Danielle Wallace, Eber Lindquist and colleagues, with an educational danna from [employer]. Physical exam (Primary Care) Vital Signs: Last Vital Signs Temp 97.1 F 10/11/24 15:58 Pulse 64 10/11/24 15:58 BP 126/62 10/11/24 15:58 Pulse Ox 95 10/11/24 15:58 Oxygen Delivery Method Room Air 10/11/24 15:58 Tobacco/Smoking Status: Tobacco use Status Tobacco use date assessed 07/12/24 10/11/24 15:58 Patient Tobacco Use Status Never used Tobacco 10/11/24 15:58 e-Cigarette/Vaping Use Never Used 10/11/24 15:58 Thrive Assessment: Date of Thrive Assessment Date Thrive assessed 07/12/24 10/11/24 15:58 Const Other: wheelchair dependent female HENMT Other: opens eye occasional eom equal , noted some scaliness over the eyelids Chest Chest palpation & inspection: normal inspection of the chest Resp Auscultation: clear to auscultation bilaterally Cardio Rate: regular rate Rhythm: regular rhythm GI Other: R side of the abdomen soft , has the stoma for the G tube Skin Lesions: no lesions Rashes: no rashes Extrem Other: mild swelling , /edema Coding Level of Care Code Est Pt Level 4 (89911) Diagnoses Down syndrome Q90.9 LEONIE on CPAP G47.33; Z99.89 G tube feedings Z93.1 Acquired hypothyroidism E03.9 Hypothyroidism type: acquired Assessment & Plan Assessment & Plan (1) Down syndrome: Comment: TRISOMY 21 PATIENT HAS ADVANCED COGNITIVE IMPAIRMENT SECONDARY TO HER DOWN SYNDROME . SHE NEEDS FULL CARE 26/12 Code(s): Q90.9 - Down syndrome, unspecified Category: Medical (2) LEONIE on CPAP: Comment: This patient has long-standing history of obstructive sleep apnea and the sister puts on the CPAP every night, so that she can sleep well. Code(s): G47.33 - Obstructive sleep apnea (adult) (pediatric); Z99.89 - Dependence on other enabling machines and devices Category: Medical (3) G tube feedings: Comment: PATIENT IS ON INTERMITTENT FEEDING SCHEDULE, Code(s): Z93.1 - Gastrostomy status Category: Medical Plan: discussion on blood work need (4) Hypothyroid: Code(s): E03.9 - Hypothyroidism, unspecified Category: Medical Qualifiers: Hypothyroidism type: acquired Qualified Code(s): E03.9 - Hypothyroidism, unspecified Plan: Has been having blood work done in [facility]. I do not have the results Plan History of Present Illness The patient is a 64-year-old female presenting for a follow-up concerning multiple chronic conditions. She has a history of Down Syndrome and obstructive sleep apnea. Her seizure disorder is currently managed with medications, and she receives nutrition through a G-tube. Hypothyroidism is managed by an twisting machine operator with recent adjustments in medication timings. Pressure ulcers on the buttocks were noted, as was eczema around the eyes. The patient has a history of recurrent pneumonia, managed recently with azithromycin and mechanical suctioning. Improvements in respiratory function were noted following adjustments in care strategies, including physical therapy measures. Health Maintenance - Management of hypothyroidism with recent blood work for thyroid function. - Pneumonia prevention strategies, including course completion of azithromycin as needed. - Regular monitoring and adjustments of medications related to chronic conditions. - Coordinating care with an twisting machine operator for thyroid function and with home services for blood work. Social History - Dependent on caregivers for daily living activities. - Sedentary lifestyle due to wheelchair dependency. - Dependent on physical assistance and medical devices for feeding and secretion management. - Living conditions and support for coordinating medical care were not explicitly detailed. Review of Systems - Neurological: Reports history of seizures. - Integumentary: Reports eczema on the face. - Respiratory: Reports recurrent pneumonia with improvements noted recently. - Endocrine: Reports hypothyroidism under current medical management. - Gastrointestinal: Receives nutrition via G-tube. Physical Exam - General- Findings not explicitly stated. - Skin- Described eczema around facial area. - Neurological- No specific findings from examination mentioned. Results - Labs: Blood work for thyroid function; T4 level adjustment from 13 to 1. - Diagnostics: Coordination for future blood work through home services. Plan Management strategies reviewed include continued follow-up for hypothyroidism, with attention to medication timing and recent positive thyroid function test results. Pneumonia management included adjustments in routine antibiotics and use of supportive devices. Current skin issues addressed with non-antibiotic treatments. Medication regime for seizure control remains critical, managed carefully around feeding schedules. Laboratory and home support coordination emphasized for ongoing care. Patient was informed and verbally consented to the use of an ambient scribe for clinic note documentation during this visit. Discussion Notes In discussing treatment strategies, I have emphasized the need for careful timing of medications given her intricate medical needs, particularly regarding her hypothyroidism and seizure management. We agreed to continue with existing therapies for chronic conditions. I reiterated that eczema treatment would not involve antibiotics as they are ineffective for non-infective issues. We discussed the critical role of antibiotics like azithromycin only in infection scenarios such as pneumonia, and the use of physical therapy measures to help with congestion was reviewed positively. I advised continuing with efforts to obtain home-based blood work to ease scheduling for caregivers and improve access to management insights. I provided guidance on the importance of regular follow-up appointments and discussed the involvement of other health professionals as necessary for comprehensive care continuity. Patient Instructions - Take all medications as prescribed. - Continue monitoring for any changes or new symptoms. - Align feeding and medication schedules as discussed. - Complete any prescribed courses of antibiotics if instructed. - Contact healthcare provider if symptoms worsen or do not improve. - Follow up on scheduled blood work and coordinate with home services. - Ensure regular observations for any skin irritations or infections. Medications: Refilled [4x4 LITE Hydrocellular foam dressing] As directed 100 ea 12RF L89.322 - Pressure ulcer of left buttock, stage 2 [chucks 30 x 36] As directed 60 ea 12RF L89.322 - Pressure ulcer of left buttock, stage 2 [commode liners] As directed 60 ea 12RF G40.909 - Epilepsy, unspecified, not intractable, without status epilepticus, Q90.9 - Down syndrome, unspecified, R32 - Unspecified urinary incontinence, Z93.1 - Gastrostomy status [heavy ABSORBENCY BED PADS 36x54] As directed 60 ea 12RF L89.322 - Pressure ulcer of left buttock, stage 2 [XL diapers] As directed 240 ea 11RF R32 - Unspecified urinary incontinence [nitro gloves size medium] As directed 2 ea 11RF L89.312 - Pressure ulcer of right buttock, stage 2 [4x4 lite hydrocellular foam dressings] adhesive with 1 inch border 30 ea 11RF J40 - Bronchitis, not specified as acute or chronic, Z93.1 - Gastrostomy status disposable gloves As directed 1,000 ea 11RF R32 - Unspecified urinary incontinence [ready bath wipes] As directed 3 ea 12RF R53.81 - Other malaise
--- OUTSIDE RECORDS SUMMARY | 2024-10-11 15:59 | XMS_ITS ---
Author Organization [facility] Address [address] [place] [phone] Care Team Providers Care Ground Hand Name Role Phone Lane Estevez MD Primary Care Provider Michael Jaime Jr Unavailable REASON FOR VISIT concerned site where tube is possilbe infected/put on cancelation list. Encounters Encounter Location Date Provider Diagnosis [facility] [address] [place] [phone] 06/28/2024 Michael Sevilla Jr Plan Of Treatment No Information Progress Notes * RACHNA ALEXANDRIAB:1960 (63 yo F)Acc No.[id number]:06/28/2024 Patient:?EDEN BRISCOE :1960???Age:63 Y???Sex:Female Address:[address] [place], [place] [address], [place], [address] * true * Date:? Generated for Printi ng/Fasonnyg/eTransmitting on:?10/11/2024 03:59 PM EDT
--- OUTSIDE RECORDS SUMMARY | 2024-10-11 15:59 | XMS_ITS | Patient Health Record ---
Author Organization [facility] Address [address] [place] [phone] Care Team Providers Care Central Aisle Cashier Name Role Phone Lane Estevez MD Primary Care Provider Michael Jaime Jr Unavailable Reason For Referral No Information Problems Problem Type SNOMED Code ICD Code Onset Dates Problem Status W/U Status Risk Notes Problem Dysphagia (59416255) Dysphagia (R13.10) Active confirmed Problem 73482553 Dysphagia, unspecified type (R13.10) Active confirmed Problem 100065972 Malfunction of gastrostomy tube (K94.23) Active confirmed Encounters Encounter Location Date Provider Diagnosis [facility] [place] Out[place] [address] [place], [place] [phone] 10/31/2023 Michael Sevilla Jr Dysphagia R13.10 [facility] [place] Outpatient [address] [place] [phone] 02/21/2024 Michael Sevilla Jr Dysphagia R13.10 and Gastrostomy malfunction K94.23 [facility] [address] [place] [phone] 10/13/2023 Michael Sevilla Jr [facility] [address] [place] [phone] 10/23/2023 Michael Sevilla Jr [facility] [address] [place] [phone] 10/25/2023 Michael Sevilla Jr [facility] [address] [place] [phone] 02/13/2024 Michael Sevilla Jr [facility] [address] [place] [phone] 02/20/2024 Michael Sevilla Jr [facility] [address] [place] [phone] 03/27/2024 Michael Sevilla Jr [facility] [address] [place] [phone] 06/28/2024 Michael Sevilla Jr [facility] [address] [place] [phone] 08/08/2024 Michael Sevilla Jr Assessments Encounter Date Diagnosis (ICD Code) Assessment Notes Treatment Notes Treatment Clinical Notes Section Notes 10/31/2023 Dysphagia (ICD-10 - R13.10) 02/21/2024 Gastrostomy malfunction (ICD-10 - K94.23) 02/21/2024 Dysphagia (ICD-10 - R13.10) Plan Of Treatment No Information Insurance Providers Payer Name Payer Address Payer Phone Subscriber Number Group Number Insured Name Patient Relationship to Insured Coverage Start Date Coverage End Date [facility] [address] Attn Claims YOBANI Sharma [id number] EDEN BRISCOE Self - patient is the insured
--- OUTSIDE RECORDS SUMMARY | 2024-10-11 16:00 | XMS_ITS ---
Author Organization [facility] Address [address] [place] [phone] Care Team Providers Care Photographic Developer And Printer Name Role Phone Lane Estevez MD Primary Care Provider Praneeth e Michael Sevilla Jr Unavailable REASON FOR VISIT PATIENT PULLED OUT G TUBE/update can pt sit in recliner up right? Encounters Encounter Location Date Provider Diagnosis [facility] [address] [place] [phone] 08/08/2024 Michael Sevilla Jr Plan Of Treatment No Information Progress Notes * RACHNA ALEXANDRIAB:1960 (64 yo F)Acc No.[id number]:08/08/2024 Patient:?EDEN BRISCOE :1960???Age:64 Y???Sex:Female Address:[address] [place] [address] [place], [address] * true * Date:? Generated for Printi ng/Fasonnyg/eTransmitting on:?10/11/2024 04:00 PM EDT
--- OUTSIDE RECORDS SUMMARY | 2024-10-11 16:00 | XMS_ITS | Data Portability ---
Author Organization [place] [facility] Address [address] [place] [id number] Care Team Providers Care Criminal Defense Lawyer Name Role Phone OG MESA Primary Care Provider [phone] APARNA GALLOWAY OTHER SHANIA MUNOZ OTHER Assessment Encounter Date Assessment Date Assessment LastModified by Organization Details LastModified Time 05/16/2019 05/16/2019 Overview/History : 58-year-old female with 8 days of cough, postnasal drip. Yesterday had fever of 101.7 degrees Fahrenheit. Denies chest pain, shortness of breath, wheezing. Used Tylenol and a doxycycline for relief. Exam: The afebrile female, sitting in a wheelchair quietly. Heart sounds regular, lungs clear, vitals within normal limits. No sinus tenderness noted. DDx considered, but not limited to: Consider bacterial upper respiratory infection given the time course. Consider pneumonia given fever and sick contacts however lung sounds clear. Consider viral upper respiratory infection although no improvement upon time course. Work up/Results: Plan/Discussion: Doxycycline 1 pill twice daily for 10 days as prescribed. Will obtain chest xray to rule out pneumonia, advised if positive, would need repeat xray in 4-6 weeks for resolution. Continue ipatroprium bromide nasal spray as previously prescribed. Warm salt water gargles throughout the day for symptomatic relief. Drink plenty of fluids. OTC acetaminophen per package direction for relief of fevers. Patient instructed to eat yogurt or take a probiotic daily to help prevent yeast infection. Patient instructed to finish all medications as prescribed even if feeling better. Patient instructed to call if symptoms worsen or do not improve; patient acknowledges understands and agrees with plan. Note created with voice recognition software and may contain grammatical errors due to this. Patient instructed to call if symptoms worsen or do not improve; patient acknowledges understands and agrees with plan. Note created with voice recognition software and may contain grammatical errors due to this. Time On Scene with Patient: 00:42:47 mirna Not available 05/16/2019 14:50:02 07/06/2019 07/06/2019 Overview/History : Pt is a 58yo F with PMH sig for Seizure DO and Down Syndrome. Pt resides with her sister who is the primary med care manager. Sister provided history but was wandering and non-linear in her reports regarding recent medical concerns. Sister reports that Pt has been treated for PNA twice since 05/16/19 and once for UTI in this time frame with one course of Doxy and one course of Keflex. She reports pt briefly seem to get better however this week the fatigue, weakness and frequent sz have returned. Sister reports pt has had a low grade fever of 100 for the last 2 days. She denies giving any APAP today prior to arrival. Sister reports pt has a dry cough as well and seems to be drinking less again. Sister is worried that the pt may have PNA again. Exam: Pt is A/Ox2, non-toxic appearing, VSS, pt is afebrile at time of visit, HRR, resp reg and unlabored on RA, lungs CTA bilat, HEENT exam is WNL, no s/s of infection noted to the abrasion to the left LE. DDx considered, but not limited to: Uncontrolled sz: likely, no acute s/s of infection noted on exam PNA: unlikely, lungs clear, pt is afebrile, no cough observed during visit UTI: unlikely, pt was recently tx with antibiotics, unable to obtain sample during visit, sister declined offer to leave urine cup and order for later collection Cellulitis: unlikely, no s/s of skin infection noted on exam. Work up/Results: Flu: neg CBC and BMP: pending Plan/Discussion: Discussed with sx that CXR is not indicated at this time as pt is afebrile, has reports of a dry cough and that lungs are CTA. Discussed that at this time fever was most likely related to a viral illness that is resolving, no acute s/s of infection noted on exam. CBC and BMP drawn for further eval per sisters request and to further r/o acute infection as cause of sx. Advised to follow up with neurology for further eval and treatment. Patients PCP contacted and updated on patient status. Patient verbalized understanding of discharge instructions and when to follow up with PCP/911/ED as needed. Patient in agreement with current plan and treatment. In order to obtain further information and compare any laboratory results/values, I have accessed old patient records. This information was pertinent in my medical decision making today. Time On Scene with Patient: 00:54:57 veronica Not available 07/06/2019 15:17:19 01/01/2020 01/01/2020 Overview/History :Venkat green is a 59-year-old female that is known to [facility] but new to this provider. She has a medical history significant for Down syndrome, Coco, dementia and chronic postnasal drip. She has had multiple chest x-rays per the report of her sister since November and has been treated for pneumonia twice by her PCP. Her sister reports that she had a repeat chest x-ray yesterday that she was told showed bilateral pneumonia. They were told by PCP they are electing to not treat with further antibiotics at this time. PCP uses mobile X which is the same image accompanied [facility] uses. The patient's sister contacted [facility] hoping that the provider responding today would initiate treatment based off of the chest x-ray ordered by PCP. She reports her sister has been having a wet cough since Monday. Exam: On exam patient is awake and alert, afebrile and hemodynamically stable. Oxygen level of 98% on room air. She had no increased worker breathing, she did not cough at all while [facility] was on seen. She overall looks fairly well. DDx considered, but not limited to:Pneumonia considered, [facility] was unable to view any of the previous chest x-rays. The patient did not have any clinical signs of pneumonia during my exam making this less likely. Cough though she was not coughing during exam may be due to seasonal allergies or possibly related to her chronic postnasal drip. Work up/Results:CBC pending. Plan/Discussion:I discussed with the patient's sister but it would be inappropriate poor [facility] to initiate treatment without having the full record or images from recent chest x-rays. I have [facility] recommendations. I also explained that my assessment was fairly benign and based off of that I have low clinical suspicion for pneumonia I did offer to order a CBC to assess for signs of systemic infection and these results will be forwarded to the patient's PCP. In order to obtain further information and compare any laboratory results/values, I have accessed old patient records. This information was pertinent in my medical decision making today. Time On Scene with Patient: 00:39:39 [email or web address] Not available 01/01/2020 15:54:46 Plan of Treatment Reminders Order Date Submit Date Provider Last Modified By Organization Details Last Modified Time Details Appointments None recorded. Lab CBC w/ auto diff - [facility] 020 [place] [facility] (Centralized Electronic Ordering - All Locations), Patient Can Go To The Location Of Their Choice, [id number] 0 23:59:15 rapid flu (A+B) [address] [facility], [address] [place] [address], [phone], 0 14:29:04 [facility]/ auto diff [facility] [place] [facility] (Centralized Electronic Ordering - All Locations), Patient Can Go To The Location Of Their Choice, 0 15:56:38 BMP + ionized calcium, serum or plasma 2019 020 [place] [facility] (Centralized Electronic Ordering - All Locations), Patient Can Go To The Location Of Their Choice, 0 15:56:38 Referral None recorded. Procedures None recorded. Surgeries None recorded. Imaging XR, chest, 2 view [facility] 019 [facility] ([facility]), [address] [facility], [place], [address], 9 11:58:18 Medication Orders doxycycli ne hyclate 100 mg capsule 2018 019 veronica [id number], [address] [place], [address], 0 13:49:50 Patient TargetsNo targets recorded. Patient Instructions Encounter Date Encounter Id Patient Instructions Last Modified By Organization Details Last Modified Time 07/06/2019 [id number] Thank you for yo ur visit with [employer] today. We cannot always find the exact cause of your symptoms during your initial visit. Please follow up with your primary care provider or specialist to be rechecked or seek medical attention if your symptoms do not go away or get worse. If you develop any new or worsening symptoms and need after hours care, please go to nearest ER and/or call 911. If you have additional concerns or develop a change in your condition between 8am-10pm, please call [employer] at [phone] to help navigate your care. Viral Illness Discharge Instructions BASIC INFORMATION A viral infection can range anywhere between a common cold and influenza. Most viruses will respond to a combination of time and supportive care. Viruses are eliminated by the bodies immune system and do not respond to antibiotics. Viruses can cause many different symptoms including runny stuffy nose, sore throat, headache, fever, body aches, cough, nausea, vomiting,diarrhea. Most of the viral illnesses are spread by hand to face contact, and the rest are spread through sneezing and coughing which releases virus into the air. Over the counter medications can help to relieve annoying symptoms. Occasionally having a virus may cause a secondary bacterial infection such as ear infections, pneumonia, sinusitis. INSTRUCTIONS Keeping your body as healthy as possible will help to limit your illness. Get plenty of rest Drink lots of fluids (water, herbal tea, gatorade) Reduce your risk of getting or giving a cold by avoiding touching your face with your hands. When you cough and sneeze cover your mouth/nose by placing your elbow or upper arm over the area rather than using your hand. Use a teaspoon of honey(avoid organic honey in infants and small children < 1 year) at bedtime to soothe your throat and ease cough. Sleep with head of bed elevated to promote drainage of secretions. Hot showers and humidifiers can help to loosen secretions. Tylenol over the counter can be helpful for aches and fever. Suck on hard, sugar-free candy during the day to keep the throat moist. MEDICATIONS Over the counter remedies are not recommended for young children, but can help relieve symptoms temporarily in adults. In general it is better to take only the medication you need rather than using combination products that contain ingredients that are unnecessary and may cause side effects. 1. Antihistamines (Benadryl, Chlor-Trimeton, Zyrtec, Claritin, Sol) reduce secretions, but can cause drowsiness and sedation, do not drink alcohol or drive while taking these medications. 2. Decongestants (Phenylephrine, Sudafed) can help to shrink swollen nasal passages and dry secretions, but may cause palpitations, anxiety,and are not safe for people with High blood pressure or heart arrhythmias. 3. Topical Decongestants (Afrin/Ger-synephr ine) can be very helpful for acute relief of nasal swelling and runny nose, HOWEVER they should not be used regularly for more than 3 days as they will cause rebound congestion if over-used. 4. Cough aids generally contain DM( Dextromethorphan) which is a cough suppressant and Guaifenesin which is an expectorant. While the DM portion can be helpful for suppressing the cough, guaifenesin, particularly as dosed in Mucinex like products has minimal effect and may cause nausea. 5. Tamiflu an anti-viral agent may be prescribed if you are diagnosed with influenza. Viral symptoms usually last between 5-10 days, it is not uncommon to have a mild cough for up to 6 weeks afterward. If you have been diagnosed with influenza you should minimize your contact with others. You may return to work/school after 24 hours of being fever free without medication (usually 5-10 days). FOLLOW UP if your symptoms are not improving in 7-10 days If you have severe ear pain, sinus pain, cough productive large amounts of mucus, wheezing. You have underlying medical problems that may become worse as a result of your viral illness (asthma, diabetes, COPD) and need to follow up to ensure you are improving. SEEK CARE IMMEDIATELY IF 1 Severe headache unresponsive to Tylenol or severe neck stiffness 2. Confusion 3. Severe chest pain 4. Difficulty breathing 5. Persistent vomiting 6. Cough productive large amounts of sputum or blood 7. Inability to keep liquids down 8. Fever unresponsive to medication over 102 If you develop any new or worsening symptoms and need after hours care, please go to nearest ER and/or call 911. If you have additional concerns or develop a change in your condition between 8am-10pm, please call [facility] at [phone] to help navigate your care. [email or web address] Not available 07/06/2019 14:24:57 01/01/2020 [id number] Inhaler Instructions Before use, you need to prime the inhaler: ? Take the cap off the mouthpiece and put the inhaler in the spacer ? Shake the inhaler for 5 seconds ? Hold the inhaler upright with 1 finger on the top of the canister, the thumb on the bottom of the inhaler, and your other hand holding the spacer ? Express a large breath ? Close lips around spacer ? Press down on the canister ? After you press down on the canister, breathe (or have your child breathe in) deeply and slowly and hold your breath for 10 seconds ? Take out of your mouth and slowly exhale ? If you were instructed to take 2 puffs of the inhaler, wait one minute before you give the second puff. Shake the inhaler again before the second puff. ? If the inhaler is a steroid medicine (also called a ? glucocorticoid? or ? corticosteroid? ), rinse out your mouth, gargle, and spit out the water Cleaning: If you use the inhaler every day, you need to clean it at least once a week. If you use less often, clean the inhaler when you see powder in or around the hole. To clean an inhaler: ? Remove the canister and cap from the mouthpiece. Do not wash the canister or put the canister under water. ? Run warm water through the mouthpiece for 30 to 60 seconds ? Shake the water off of the mouthpiece and let it air dry Clean the spacer every 1-2 weeks. First, remove the inhaler from the spacer. Wash the spacer with warm water and dishwashing soap, but do NOT rinse it. Then let it air dry. Leaving the spacer a little soapy after cleaning actually helps it work better. [email or web address] Not available 01/01/2020 14:47:31 Reason for Referral None Reported. Results Created Date Observation Date Name Description Value Unit Range Abnormal Flag Note LastModifiedBy Organization Detail LastModifiedTime 07/06/19 20 07/06/2019 rapid flu (A+B) Flu A negati ve Not Available [facility] [address], [place], [address], 07/06/2019 13:51:02 07/06/1907/06/2019 rapid flu (A+B) Flu B negati ve Not Available [facility] [address], [place], [address], 07/06/2019 13:51:02 07/06/19 20 07/06/2019 rapid flu (A+B) Control Visual ized / Valid Not Available [facility] [address], [place], [address], 07/06/2019 13:51:02 01/01/2001/01/2020 CBC w/ auto diff WBC 4.6 K/mm3 (4.0-1 1.0) Not Available [facility] (Centralized Electronic Ordering - All Locations) Patient Can Go To The Location Of Their Choice, 01/01/2020 23:59:15 01/01/2001/01/2020 CBC w/ auto diff RBC 3.93 M/mm3 (4.20- 5.40) low Not Available [facility] (Centralized Electronic Ordering - All Locations) Patient Can Go To The Location Of Their Choice, 01/01/2020 23:59:15 01/01/2001/01/2020 CBC w/ auto diff HGB 12.9 gm/dL (11.7- 15.5) Not Available [facility] (Centralized Electronic Ordering - All Locations) Patient Can Go To The Location Of Their Choice, 01/01/2020 23:59:15 01/01/2001/01/2020 CBC w/ auto diff HCT 41.7 % (35.7- 45.8) Not Available [facility] (Centralized Electronic Ordering - All Locations) Patient Can Go To The Location Of Their Choice, 01/01/2020 23:59:15 01/01/2001/01/2020 CBC w/ auto diff MCV 106.1 fL (80.0- 100.0) high Not Available [facility] (Centralized Electronic Ordering - All Locations) Patient Can Go To The Location Of Their Choice, 01/01/2020 23:59:15 01/01/2001/01/2020 CBC w/ auto diff MCH 32.8 pg (27.0- 34.0) Not Available [facility] (Centralized Electronic Ordering - All Locations) Patient Can Go To The Location Of Their Choice, 01/01/2020 23:59:15 01/01/2001/01/2020 CBC w/ auto diff MCHC 30.9 g/dL (33.0- 37.0) low Not Available [facility] (Centralized Electronic Ordering - All Locations) Patient Can Go To The Location Of Their Choice, 01/01/2020 23:59:01/01/2001/01/2020 CBC w/ auto diff plt 228 K/mm3 (150-4 60) Not Available [facility] (Centralized Electronic Ordering - All Locations) Patient Can Go To The Location Of Their Choice, 01/01/2020 23:59:01/01/2001/01/2020 CBC w/ auto diff RDW-SD 59.7 fL (<47.0 ) high Not Available [facility] (Centralized Electronic Ordering - All Locations) Patient Can Go To The Location Of Their Choice, 01/01/2020 23:59:15 01/01/2001/01/2020 CBC w/ auto diff MPV 11.2 fL (9.4-1 2.4) Not Available [facility] (Centralized Electronic Ordering - All Locations) Patient Can Go To The Location Of Their Choice, 01/01/2020 23:59:15 01/01/2001/01/2020 CBC w/ auto diff automated NRBC 0.0 #/100 _WBC' s Not Available [facility] (Centralized Electronic Ordering - All Locations) Patient Can Go To The Location Of Their Choice, 01/01/2020 23:59:01/01/2001/01/2020 CBC w/ auto diff abs. NRBC 0.0 K/mm3 Not Available [facility] (Centralized Electronic Ordering - All Locations) Patient Can Go To The Location Of Their Choice, 01/01/2020 23:59:01/01/2001/01/2020 CBC w/ auto diff neut # 2.2 K/mm3 (1.3-7 .0) Not Available [facility] (Centralized Electronic Ordering - All Locations) Patient Can Go To The Location Of Their Choice, 01/01/2020 23:59:15 01/01/2001/01/2020 CBC w/ auto diff lymph # 1.6 K/mm3 (0.8-3 .1) Not Available [facility] (Centralized Electronic Ordering - All Locations) Patient Can Go To The Location Of Their Choice, 01/01/2020 23:59:15 01/01/2001/01/2020 CBC w/ auto diff mono# 0.6 K/mm3 (0.4-0 .9) Not Available [facility] (Centralized Electronic Ordering - All Locations) Patient Can Go To The Location Of Their Choice, 01/01/2020 23:59:01/01/2001/01/2020 CBC w/ auto diff eo # 0.1 K/mm3 (0.0-0 .4) Not Available [facility] (Centralized Electronic Ordering - All Locations) Patient Can Go To The Location Of Their Choice, 01/01/2020 23:59:01/01/2001/01/2020 CBC w/ auto diff baso # 0.1 K/mm3 (0.0-0 .1) Not Available [facility] (Centralized Electronic Ordering - All Locations) Patient Can Go To The Location Of Their Choice, 01/01/2020 23:59:01/01/2001/01/2020 CBC w/ auto diff abs. imm gran 0.0 K/mm3 Not Available [facility] ([facility] Order[facility] - All Locations) Patient Can Go To The Location Of Their Choice, 01/01/2020 23:59:01/01/2001/01/2020 CBC w/ auto diff neut 48.2 % (44-76 ) Not Available [facility] (Centralized Electronic Ordering - All Locations) Patient Can Go To The Location Of Their Choice, 01/01/2020 23:59:01/01/2001/01/2020 CBC w/ auto diff lymph 34.3 % (15-43 ) Not Available [facility] (Centralized Electronic Ordering - All Locations) Patient Can Go To The Location Of Their Choice, 01/01/2020 23:59:01/01/2001/01/2020 CBC w/ auto diff monocyte 13.1 % (4.5-1 0.5) high Not Available [facility] (Centralized Electronic Ordering - All Locations) Patient Can Go To The Location Of Their Choice, 01/01/2020 23:59:15 01/01/2001/01/2020 CBC w/ auto diff eo 2.0 % (0-6) Not Available [facility] (Centralized Electronic Ordering - All Locations) Patient Can Go To The Location Of Their Choice, 01/01/2020 23:59:15 01/01/2001/01/2020 CBC w/ auto diff baso 1.5 % (0-2) Not Available [facility] (Centralized Electronic Ordering - All Locations) Patient Can Go To The Location Of Their Choice, 01/01/2020 23:59:15 01/01/2001/01/2020 CBC w/ auto diff imm gran 0.9 % Not Available [facility] (Centralized Electronic Ordering - All Locations) Patient Can Go To The Location Of Their Choice, 01/01/2020 23:59:15 05/17/2005/17/2019 XR, chest , 2 view XRAY CHEST 2 VIEW FINDIN GS: There is mild increa se in the pulmon taran inters titial markin gs at both lung bases withou t focal consol idatio n seen. No pleura l effusi ons are seen. The heart is within the upper limits of normal in size. Hilar areas are normal . Pulmon taran vascul ature is normal . CONCLU JOSE: Mild increa se in the pulmon taran inters titial markin gs at both lung bases. This could be inters titial pneumo christina. Follow -up films might be of value. ELECTR ONICAL LY SIGNED BY RADHA MOLINA M.D. 2018 11:49: 23 AM EST. XRAY CHEST 2 VIEW Result s: There is mild increa se in the pulmon taran inters titial markin gs at both lung bases withou t focal consol idatio n seen. No pleura l effusi ons are seen. The heart is within the upper limits of normal in size. Hilar areas are normal . Pulmon taran vascul ature is normal . Conclu jose: Mild increa se in the pulmon taran inters titial markin gs at both lung bases. This could be inters titial pneumo christina. Follow -up films might be of value. Electr onical ly signed by RADHA MOLINA M.D. 2018 11:49: 23 AM EST. [facility]) [address], [place], [place], [address], 05/20/2019 08:39:27 Result Notes None recorded. Procedures Surgical History Date Name Laterality Status Provider Name and Address Organization Details Recorded Time 01/01/20 20 Venipuncture - DH completed VINH PLASENCIA NP [address], [place], [address], [place] [facility] 01/01/2020 15:50:17 Imaging Results Imaging Date Name Status LastModified by Organiz ation Details LastModified Time 05/17/2019 XR, chest, 2 view completed [facility]) [address], [place], [address], 05/20/2019 08:39:27 Procedure Notes None recorded. Medical Equipment None Reported. Allergies Allergen ID Allergen Name Allergen Category Reaction Reaction Severity Criticality Documentation Date Start Date Code Code System Note Provider Name and Address Organization Details Recorded Time 53446 Substance with sulfonami de structure and antibacte rial mechanism of action (substanc e) medicatio n Not available Not available Not available 05/16/2019 80630 8003 SNOMED [place]ORMICK [address] [place], [address], [place] [facility] 9 13:54:14 01167 Product containin g penicilli n (product) medicatio n Not available Not available Not available 05/16/2019 09657 8001 [place] TRIPLETT [address] [place], [address], [place] [facility] 9 13:54:21 62786 Ativan medicatio n Not available Not available Not available 05/16/2019 65802 9 RxNorm [place] M[place]ORMICK [address] [place], [address], [place] [facility] 9 13:58:43 16986 codeine medicatio n Not available Not available Not available 05/16/2019 2670 RxNorm DOMENICO LEWIS, PA [address], [place], [address], [place] [facility] 9 13:58:52 82428 oxcarbaze pine medicatio n Not available Not available Not available 05/16/2019 45283 RxNorm DOMENICO LEWIS, PA [address], [place], [address], [place] [facility] 9 13:59:00 51569 fentanyl medicatio n Not available Not available Not available 05/16/2019 4337 RxNorm DOMENICO LEWIS, PA [address], [place], [address], [place] [facility] 9 13:59:10 Medications Name Sig Start Date Stop Date Status Note LastModified by Organization Details LastModified Time first-omepr azole 2 mg/ml susp TAKE 1.25ML BY MOUTH EVERY DAY active Not Available Not Available No t Available prednisone 10 mg tablet 07/06 completed Not Available Not Available Not Available doxycycline hyclate 100 mg capsule GIVE CONTENTS OF 1 CAPSUILE 2 TIMES A DAY active Not Available Not Available No t Available albuterol sulfate 2.5 mg/3 mL (0.083 %) solution for nebulizatio n INHALE CONTENTS OF 1 AMP VIA NEBULIZER EVERY 6 HOURS NEEDED FOR BREATHING PROBLEMS active Not Available Not Available No t Available azithromyci n 250 mg tablet active Not Available Not Available Not Available lamotrigine 25 mg chewable dispersible tablet active Not Available Not Available Not Available amitriptyli ne 25 mg tablet 05/16 completed Not Available Not Available Not Available amitriptyli ne 10 mg tablet active Not Available Not Available Not Available cephalexin 500 mg capsule 07/06 completed Not Available Not Available Not Available nystatin 100,000 unit/gram topical cream APPLY TO AFFECTED AREA 3 TIMES A DAY NEEDED active Not Available Not Available No t Available Synthroid 88 mcg tablet active Not Available Not Available Not Available Synthroid 75 mcg tablet 05/16 completed Not Available Not Available Not Available ammonium lactate 12 % topical cream 05/16 completed Not Available Not Available Not Available codeine 10 mg-guaifene sin 100 mg/5 mL oral liquid TAKE 5 ML BY MOUTH EVERY 6 HOURS NEEDED FOR COUGH active Not Available Not Available No t Available lisinopril 5 mg tablet active Not Available Not Available Not Available mupirocin 2 % topical ointment 05/16 completed Not Available Not Available Not Available cefuroxime axetil 500 mg tablet TAKE 1 TABLET BY MOUTH EVERY 12 HOURS active Not Available Not Available No t Available levofloxaci n 500 mg tablet active Not Available Not Available Not Available doxycycline hyclate 100 mg tablet 1 TABLET BY MOUTH TWICE A DAY active Not Available Not Available No t Available ipratropium bromide 21 mcg (0.03 %) nasal spray INHALE 2 SPRAY INTO BOTH NOSTRILS THREE TIMES A DAY DIRECTED active Not Available Not Available No t Available naproxen 500 mg tablet active Not Available Not Available Not Available clonazepam 0.25 mg disintegrat ing tablet active Not Available Not Available N ot Available levetiracet am 100 mg/mL oral solution active Not Available Not Available Not Available donepezil 5 mg disintegrat ing tablet active Not Available Not Available N ot Available omeprazole active Not Available Not Av ailable Not Available Tussin 100 mg/5 mL oral liquid TAKE 2 TEASPOONF ULLS (10ML) BY MOUTH 4 TIMES A DAY NEEDED active Not Available Not Available No t Available Vimpat 10 mg/mL oral solution active Not Available Not Available Not Available Vitals Date Recorded Body temperature Oxygen saturation Oxygen saturation in Arterial blood by Pulse oximetry Heart rate Respiratory rate Systolic blood pressure Diastolic blood pressure Provider Name and Address Organization Details Last Updated DateTime 9 97.2 [degF] 100 % 100 % 60 /min 20 /min 102 mm[Hg] 58 mm[Hg] Not Available [facility] 9 14:08:13 Date Recorded Respiratory rate Body temperature Oxygen saturation Oxygen saturation in Arterial blood by Pulse oximetry Heart rate Systolic blood pressure Diastolic blood pressure Provider Name and Address Organization Details Last Updated DateTime 0 16 /min 97.3 [degF] 100 % 100 % 93 /min 140 mm[Hg] 74 mm[Hg] Not Available [facility] 0 13:53:28 Date Recorded Body temperature Oxygen saturation Oxygen saturation in Arterial blood by Pulse oximetry Heart rate Respiratory rate Systolic blood pressure Diastolic blood pressure Provider Name and Address Organization Details Last Updated DateTime 0 97.8 [degF] 98 % 98 % 86 /min 16 /min 106 mm[Hg] 60 mm[Hg] Not Available [facility] 0 14:51:24 Social History Question Answer Notes LastModified by Organizat ion Details LastModified Time Tobacco Smoking Status Never Smoker YOBANI MCCORMICK [address], [place], [address], [place] [facility] 05/16/2019 14:00:01 Do You Have An Advance Directive? Yes Information not available 05/16/2019 What Is Your Code Status? Full Code Information not available 05/16/2019 Drugs Abused 0 Information not available 05/16/2019 Do You Or Have You Ever Used E-cigarettes Or Vape? Never Used Electronic Cigarettes Information not available 05/16/2019 How Many Days In The Past Year Have You Had A Heavy Drinking Consumption (4+ Female, 5+ Male)? 0 Information not available 05/16/2019 Marital Status Single Informatio n not available 05/16/2019 What Was The Date Of Your Most Recent Tobacco Screening? 05/16/2019 Information not available 05/17/2019 Do You Or Have You Ever Used Smokeless Tobacco? Never Used Smokeless Tobacco Information not available 05/16/2019 Sex: Unknown Functional Status None recorded. Mental Status None recorded. Family History Relationship Description Onset Age of this Age Resolved Age Notes LastModified by Organization Details LastModified Time Mother Heart disease lsaloio Not available 2018 13:59:53 Medical History Condition Response Diabetes N Coronary Artery Disease N High Cholesterol N Cancer N Pulmonary Embolism N Stroke N Hypertension N Asthma N COPD N Depression N Kidney Disease N Gynecological HistoryNo gynecological history recorded. Obstetrics History GPAL:G 0 P 0 0 0 0 Past Encounters Encounter ID Performer Location Encounter Start Date Encounter Closed Date Diagnosis/Indication Diagnosis SNOMED-CT Code Diagnosis ICD10 Code Diagnosis Note [id number] [facility]ANI [facility]ICK [facility] [address] [facility] [place] [address] 05/16/2019 13:45:38 05/17/2019 09:35:15 Acute upper respiratory infection 91557454 J06.9 [id number] RODRIGUEZ BESS, [employer] [facility] [address] [facility] [place] [address] 07/06/2019 13:43:58 07/08/2019 12:59:59 Seizure disorder 686640276 G40.909 Fatigue 87905382 R53.83 [id number] VINH PLASENCIA [employer] [facility] [address] [facility] [place] [address] 01/01/2020 14:46:33 01/02/2020 14:46:11 Cough 42274204 R05 Bronchopneumonia 0585381 07 J18.0 Health Concerns Section Related Observation LastModified by Organization Detai ls LastModified Time None Recorded Concern Status LastModified by Organization Details LastModified Time None Recorded Advance Directives Directive Y: Payers Insurance Date Sequence Insurance Name Policy Number Policy Ballard Covered Member ID Ballard Member ID Guarantor Name 01/01/2020 2 [place] [facility] Ann Marie Gold [id number] Ann Marie Gold 05/16/2019 1 MEDICARE B-[place]: [facility] Ann Marie Gold [id number] Ann Marie Gold 01/01/2020 1 MEDICARE B-[place]: [facility] Ann Marie Gold [id number] Ann Marie Gold 05/16/2019 1 *SELF PAY* Ann Marie Gold [id number] Ann Marie Gold Notes Date Note Type Note Provider Name and Address Organization Details Recorded Time 05/16/2019 text/html 58-year-old alfredo villa, with Down syndrome, presents with her sister for evaluation cough. Reports 8 days of cough and does note chronic postnasal drip but states this cough is worse than her usual. States yesterday did have fever of 101.7 degrees Fahrenheit for which she was given acetaminophen and also 1 doxycycline. Sister, who provides the history, also denies any episodes of shortness of breath, wheezing, chest pain. Does report multiple sick contacts and states another house member was recently diagnosed with pneumonia. States she did contact her primary care provider and requested a prescription for doxycycline however, she could not get her sister to an appointment and therefore the medication would not be given. YOBANI MCCORMICK [address], [place], [address], [place] [facility] 05/16/2019 14:50:08 07/06/2019 text/html Pt was seen by Yehuda Childers on 05/16/19, pt was placed on Doxy. Pt was seen in the ER on 05/22/19 and was advised to continue doxy and prednisone was added and given some cough medication and pt's kepra was increased to help prevent sz r/t antibiotics. Sister reports that pt seemed to have persistent cough and weakness and has been having increase frequency of sz. Pt has had a low grade fever the last few days and her sz frequency has been high the last few days. Pt's HR and O2 have been doing well. Pt was seen in the Hospital on 06/11/19 d/t increase in sz frequency with a 3 day EEG scheduled. EEG was normal, and a CXR showed that she had PNA again come earlier Jun. Sister is concerned that the increase frequency in sz this week may be related to the PNA returning again. RODRIGUEZ BESS NP [address], [place], [address], [place] [facility] 07/06/2019 15:17:24 01/01/2020 text/html This is a 59-year-old female that is known to [facility] new to this provider. She has a medical history significant for Down syndrome, seizures, dementia, hypothyroidism and chronic postnasal drip. Her sister contacted [facility] because she wanted antibiotics for her sister. She explained to me that her sister has had multiple chest x-rays since November. She reports that she had a portable chest x-ray on 11/05 which showed left sided pneumonia for which her PCP treated her with doxycycline for 10 days. She then had another chest x-ray at 11/18 which showed right sided pneumonia and she was again treated with another 10 days of doxycycline. She was also prescribed albuterol but the patient's sister reports that patient trembles significantly after receiving albuterol. It sounds like the patient also had a chest x-ray yesterday which the patient's sister tells me was read as bilateral pneumonia. The patient's sister tells me that she spoke to PCP office yesterday and that she was told by PCP they did not want to treat her with any further antibiotics. She contacted [facility] since [facility] also uses the same mobile imaging services as her PCP, she was hoping that the provider on scene today would prescribe antibiotics based off of the last chest x-ray that was ordered by the PCP. [facility] however we were only able to read reports of x-rays that we ordered. VINH PLASENCIA NP [address], [place], [address], [place] [facility] 01/01/2020 18:14:18 OBGyn Episode No OBEpisode recorded.
--- OUTSIDE RECORDS SUMMARY | 2024-10-11 16:00 | XMS_ITS ---
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 Generated for Adelinai alma/Alis/eTransmitting on:?10/11/2024 03:59 PM EDT
--- OUTSIDE RECORDS SUMMARY | 2024-10-11 16:01 | XMS_ITS | Data Portability ---
Author Organization [employer] [facility] [employer] Address [address] [place] [address] Care Team Providers Care Script Editor Name Role Phone HIM CCA OTHER POLINH [...] in the field was performed by my scorer helper colleague, as noted above, I provided real-time [...] Assessment and Plan as documented by the Outgoing Inspector. We discussed the diagnostic uncertainty of home [...] to call 911- verbalized understanding of instruction [email or web address] Not available 06/04/2024 13:20:52 07/23/2024 07/23/2024 Evaluation in the field was performed by my scorer helper colleague, as noted above, I provided real-time [...] Go To The Location Of Their Choice, [address] 06:05:59 urinalysis, dipstick 2023 024 [email or web address] 0 Main - [facility], [address] [place] [address], [phone] 4 13:18:46 BMP, serum or plasma 2023 024 [email or web address] 0 [facility], [address] [place] [address], [phone] 4 13:19:53 urinalysis, dipstick 2023 024 [email or web address] [facility], [address] [place] [address], [phone] 4 19:32:25 culture, urine 2023 024 ANT [facility] (Centralized Electronic Ordering - All Locations), Patient Can Go To The Location Of Their Choice, [address] 4 08:08:39 Referral None recorded. Procedures catheteriza tion straight - procedure (PROC) 2023 [email or web address] 0 Not available 12:23:36 catheteriza tion straight - procedure (PROC) 2023 024 ANT Not available 5 05:01:08 Surgeries None recorded. Imaging None recorded. Medication Orders cephalexin 250 mg/5 mL oral suspension 2023 [facility]/Pharmacy #[id number], [address] [place], [address], 4 13:19:54 mupirocin 2 % topical ointment 2023 [facility]/Pharmacy #[id number], [address] [place], [address], 15:56:26 cephalexin 250 mg/5 mL oral suspension 2023 024 [facility]/Pharmacy #[id number], [address], [address], 19:36:41 Patient TargetsNo targets recorded. Patient InstructionsNo instructions recorded. Reason for Referral None Reported. Results Created Date Observation Date Name Description Value Unit Range Abnormal Flag Note LastModifiedBy Organization Detail LastModifiedTime 09/27/1909/30/2023 URINE CULTU RE, ROUTI NE urine culture, routine Final report abnormal Not Available [facility] ([facility]) [address] [facility], [place], [address], 09/30/2023 16:07:42 09/27/19 24 09/30/2023 URINE CULTU RE, ROUTI NE result 1 Klebsi violeta aeroge win abnormal Great er than 100,0 00 colon y formi ng units per mL Not Available [facility] ([facility]) [address] [facility], [place], [address], 09/30/2023 16:07:42 09/27/19 24 09/30/2023 URINE CULTU [...] thopr im/Garcia lfa S Not Available [facility] ([facility]) [address] [facility], [place], [address], 09/30/2023 16:07:42 09/27/19 24 09/27/2023 urina lysis , dipst ick Leukocytes 4+ Not Available Main - [facility] [address] [place] [address], [phone] 09/27/2023 19:28:56 09/27/19 24 09/27/2023 urina lysis , dipst ick Nitrite positi ve Not Available Main - [facility] [address] [place] [address], [phone] 09/27/2023 19:28:56 09/27/19 24 09/27/2023 urina lysis , dipst ick Blood ++ Not Available Main - [facility] [address], [address] 09/27/2023 19:28:56 09/27/1909/27/2023 urina lysis , dipst ick Ketone + Not Available Main - [facility] [address], [address] 09/27/2023 19:28:56 06/04/20 24 06/06/2024 URINE CULTU RE,CO MPREH ENSIV E urine culture,comp rehensive Final report Not Available [facility] ([facility]) [address] [facility], [place], [address], 06/06/2024 06:05:59 06/04/2006/06/2024 URINE CULTU RE,CO MPREH ENSIV E result 1 COMMEN T Mixed uroge nital freddy Great er than 100,0 00 colon y formi ng units per mL Not Available [facility] ([facility]) [address] [facility], [place], [address], 06/06/2024 06:05:59 06/04/20 24 06/04/2024 urina lysis , dipst ick Leukocytes 2+ Not Available Main - [facility] [address] [place] [address], [phone] 06/04/2024 13:17:57 06/04/2006/04/2024 urina lysis , dipst ick Nitrite negati ve Not Available Main - [facility] [address], [address] 06/04/2024 13:17:57 06/04/2006/04/2024 urina lysis , dipst ick Appearance clear Not Available Main - [facility] [address] [place] [address], [phone] 06/04/2024 13:17:57 06/04/2006/04/2024 urina lysis , dipst ick Color yellow Not Available Main - [facility] [address], [address] 06/04/2024 13:17:57 Result Notes None recorded. Medical Equipment None Reported. Allergies Allergen ID Allergen Name Allergen Category Reaction Reaction Severity Criticality Documentation Date Start Date Code Code System Note Provider Name and Address Organization Details Recorded Time 46402 doxycycli ne Not available Not available Not available Not available 04/19/2024 3640 RxNorm Not Available [facility] [employer] 4 12:55:34 28939 fentanyl medicatio n Not available Not available Not available 06/04/2024 4337 RxNorm Juanita Stephenson MD [address] [place] [address],[address], [place], [phone], [employer] 4 12:19:21 74391 Ativan medicatio n Not available Not available Not available 06/04/2024 30695 9 RxNorm Juanita Stephenson MD [address] [place] [address],[address], [place], [address], [employer] 4 12:19:26 61162 Substance with sulfonami de structure and antibacte rial mechanism of action (substanc e) medicatio n Not available Not available Not available 06/06/2024 44599 8003 SNOMED Leila lee [employer] 5 10:45:27 1946 Bactrim medicatio n Not available Not available Not available 2022 52538 9 RxNorm Not Available [facility] [employer] 4 03:49:06 1947 Product containin g penicilli n (product) medicatio n Not available Not available Not available 2022 82060 8001 SNOMED Not Available [facility] [employer] 4 03:49:06 Medications Name Sig Start Date [...] [degF] 142 mm[Hg] 90 mm[Hg] Not Available [employer] 4 19:22:41 Date Recorded Body height Oxygen saturation Oxygen saturation in Arterial blood by Pulse oximetry Body temperature Body weight Respiratory rate Heart rate Systolic blood pressure Diastolic blood pressure Provider Name and Address Organization Details Last Updated DateTime 4 160.02 cm 98 % 98 % 98.6 [degF] 85235.6 4 g 19 /min 59 /min 106 mm[Hg] 62 mm[Hg] Not Available [employer] 4 15:48:24 Date Recorded Body temperature Respiratory rate Heart rate Oxygen saturation Oxygen saturation in Arterial blood by Pulse oximetry Systolic blood pressure Diastolic blood pressure Provider Name and Address Organization Details Last Updated DateTime 4 97.4 [degF] 18 /min 72 /min 95 % 95 % 121 mm[Hg] 78 mm[Hg] Not Available [employer] 4 12:18:46 Date Recorded Oxygen saturation Oxygen saturation in Arterial blood by Pulse oximetry Respiratory rate Heart rate Body temperature Systolic blood pressure Diastolic blood pressure Provider Name and Address Organization Details Last Updated DateTime 5 97 % 97 % 16 /min 79 /min 98.5 [degF] 132 mm[Hg] 84 mm[Hg] Not Available [employer] 5 13:05:33 Date Recorded Oxygen saturation Oxygen saturation in Arterial blood by Pulse oximetry Body height Heart rate Respiratory rate Body temperature Body weight Systolic blood pressure Diastolic blood pressure Provider Name and Address Organization Details Last Updated DateTime 5 98 % 98 % 152.4 cm 72 /min 14 /min 97.4 [degF] 99045.8 g 108 mm[Hg] 72 mm[Hg] Not Available [employer] 5 18:58:10 Social History None recorded. Functional [...] 7987 Juanita Stephenson MD Main - [facility] [address] [place] [phone] 2022 15:58:17 08/01/2022 09:21:00 Localized eruption of skin 443901095 R21 ? eczema with early cellulitis and blephariti s- personal care service provider/sist er states has tolerated benadryl- unsure of [...] dendrites so will not use ophthalmic steroid. CONSERVATION ENGINEER WILL SOIL CHECKER RX TONIGHT- advised give 1 more dose [...] had keflex numerous times per sister her personal care service provider without reaction [id number] Sandra Hodge MD Main - [facility] [address] [place] [phone] 08/26/2022 19:46:58 08/29/2022 12:59:41 Fever 229095318 R50.9 62 yo with significan t developmen [...] 9273 Kaylan Gonsalves MD Main - [facility] [address] [place] [phone] 09/10/2022 19:26:36 09/12/2022 10:37:55 Upper respiratory infection 05605764 J06.9 9554 Colin Fernandes MD Main - [facility] [address] [place] [phone] 09/20/2022 14:56:21 09/22/2022 10:00:12 Upper respiratory infection 05892997 J06.9 Patients with severe dementia presents with [...] s.Plan- [place] [id number] Kameron Peng MD Main - [facility] [address] [place] [phone] 10/08/2022 17:36:04 10/10/2022 10:22:21 Viral upper respiratory tract infection 902324894 J06.9 COVID/flu negative. Normal O2 sats. No respirator y distress. Given hx of recent bronchitis , on multiple antibiotic s with persistent symptoms, advised to call PCP this weekend/Mo nday in order to obtain CXR to rule out underlying pneumonia prior to treating with antibiotic s [id number] LANG ALMODOVAR MD Main - [facility] [address] [place] [address] 08/16/2023 13:48:40 08/16/2023 22:40:39 Friction blister without infection [id number] T14.8XXA Evaluation in the field was performed by my scorer helper colleague, as noted above, I provided real-time direction and supervisio n for this visit. The evaluation revealed 63 yo female with hx of seizure, paraplegia , g-tube fed, who has hx of seizure but today had a seizure that lasted longer than usual ( had stopped by the time of the visit and neurology was contacted by the horticulture teacher ) and concerns for blood blisters in the buttocks.C aretaker reports that she uses Silver sulfadiazi ne cream , Anthony' s Butt Paste and mepilex to cover them .Pt sits in the wheelchair from 1-7 PM . They have donut cushionCCA is working for increased help ( horticulture teacher is 73 yo ) but is having [...] t. Primary care, consider: Please consider increasing MANAGER ED help given the fact pt is full assist and the horticulture teacher is old. Dispositio n: We discussed the [...] skin with bleeding, or any other concerns. 75703 ANTONELLA KEYES MD Main - [facility] [address] [place] [address] 09/27/2023 19:02:32 09/27/2023 22:02:46 Urinary symptoms [id number] R39.9 Acute urin taran tract infection 752762102 N39.0 10769 LANG ALMODOVAR MD Main - [facility] [address] [place] [address] 04/19/2024 15:48:18 04/20/2024 13:11:03 Onycholysis 88374119 L60.1 Evaluation in the field was performed by my scorer helper colleague, as noted above, I provided real-time [...] temperatur e as per discussion with the scorer helper. Allergies reviewed. Impression :Onycholys is left big [...] pain, nausea, vomiting or any other concerns [id number] Juanita Stephenson MD Main - [facility] [address] [place] [phone] 06/04/2024 12:18:41 06/04/2024 22:16:07 Urinary symptoms 073234355 R39.9 Medic attempted straight cath- unable to [...] verbalized understand [place] 12433 Adair Macedo MD Main - [facility] [address] [place] [address] 06/08/2024 13:05:30 06/08/2024 18:57:04 Acute urinary tract infection 409343368 N39.0 Here for recheck of patient who [...] Impression : Treated UTI Plan:Expec tant mgmt. [id number] Kavita Gardner MD Main - [facility] [address] [place] [phone] 07/23/2024 18:58:08 07/24/2024 10:01:12 Sample sent to laboratory for test [id number] Z75.2 Health Concerns Section Related Observation LastModified by Organization Detai ls LastModified Time None Recorded Concern Status LastModified by Organization Details LastModified Time None Recorded Advance Directives Directive None Recorded Payers Insurance Date Sequence Insurance Name Policy Number Policy Ballard Covered Member ID Ballard Member ID Guarantor Name 08/24/2023 1 [facility] - DOS PRIOR TO 2022 - DUAL ELIGIBLE (MEDICARE REPLACEMENT/ADV ANTAGE - HMO) Eden Gold [id number] Eden Gold 07/24/2024 1 [facility] - DOS ON OR AFTER 2022 - DUAL ELIGIBLE - ASSISTED OPTIONS AND ONE CARE (MEDICARE REPLACEMENT/ADV ANTAGE - HMO) Eden Gold [id number] Eden Gold Notes Date Note Type Note [...] ..................... ..................... ..................... ..................... ..................... ..................... ............... Outgoing Inspector Note From Louie Dominguez: Dispatched to the [...] UA (+) sample obtained via strait cath. [facility] consulted. Script called into preferred pharmacy. Red flags discussed. ALL times are approx. ..................... ..................... ..................... ..................... ..................... ..................... ............... Disposition: Fulfilled ANTONELLA KEYES MD [address] [place] [address],[address], [place], [address], [employer] 09/27/2023 20:43:47 04/19/2024 text/html CRC Nurse Triage [...] ..................... ..................... ..................... ..................... ..................... ..................... ............... Outgoing Inspector Note From Dickson Rodriguez: Pt chief complaint of left big toe trauma that resulted in the eventual removal of toe nail. Pt sister is calling into [facility] for a consultation of the area and if there is a possible infection. Pt sister states that approx 5 day prior to her [facility] appointment the pt was being taken [...] which is being seen to by a ice cream server. The area in question is noted to no be draining bleeding or tender to the pt on palpation. Pt does show positive sensation in all extremities, [facility] Lang Almodovar consultedPt sent a topical antibiotic to her local pharmacy for use on the affected area. Pt sister educated on red flag S&S and informed to call emergency services if any begin to present. ..................... ..................... ..................... ..................... ..................... ..................... ............... [facility] Consulted: Lang Almodovar ..................... ..................... ..................... ..................... ..................... ..................... ............... Disposition: Sanjay LANG ALMODOVAR MD [address] [place] [address],[address], [place], [address], [employer] 04/19/2024 21:45:51 06/04/2024 text/html CRC Nurse Triage Notes (Leila Becerra - LANRE): Reason For Request: Possible UTI, urine smells [...] s/s and seek emergency treatment if needed. Outgoing Inspector Organization Information for Soha Kam Legal Name: [employer] Address: [address] [place] [address], Manager Talent: Brett Vila MD CLIA No.: [id number] Outgoing Inspector POC Test Results from Soha Kam - ALS Urine Dipstick (12:43:10) Urine leukocytes: 125++ MITCHEL [...] ..................... ..................... ..................... ..................... ..................... ..................... ............... Outgoing Inspector Note From Soha Kam: Sent to a call for a pt with foul-smelling urine. SC8 arrives on scene, pt is alert and non-verbal at baseline. Pt has a g-tube and does not take anything by mouth. Pt's sister (primary cna caregiver) and ENDOCRINOLOGY NURSE are on scene with pt. Pt's sister states pt has history of epilepsy, dementia, and UTI's. Sister states pt is allergic to the following: Bactrim, PCN, Doxycycline, Fentanyl, and Ativan; and has diarrhea when taking Azithromycin and Cefpodoxime. Sister states pt has recently had diarrhea which was resolved after increasing fiber in diet. Family states pt had foul-smelling urine starting last night, and ENDOCRINOLOGY NURSE notes decreased urine output today. Family denies noting any signs of pt being in pain, respiratory distress, vomiting, diarrhea, or fever. Family states pt has not had any fluids since 6am. Family states pt usually receives Tylenol 650mg TID via g-tube, but this morning's dose was held. Family notes pt has bed sores they've been treating for approx 1 year. Picture uploaded to [employer]; BP:121/78, P:72, RR:18, SpO2:95% RA, T:97.4; Head: unremarkable; Lung sounds: clear bilaterally; Abdomen: soft, non-tender, no distention; Back/buttocks: no CVA tenderness, Superficial bed sores noted; Extremities: unremarkable; Skin: pink, warm, dry; Straight catheterization performed using 12fr catheter, no urine obtained. [facility] consulted and orders 1 liter IV Normal saline and BMP. IV access: unsuccessful; Venous blood draw performed; Istat Chem8+ results: uploaded to [employer]. Pt voids into urine cup; Urine: yellow and clear; Urine dip performed, results uploaded to [employer]; [facility] removes IV fluid orders; and orders urine culture to be sent to [facility]. [facility] sends script to pt's pharmacy for Cephalexin suspension. Family is advised to increase fluids. Family advised pt will be prescribed Cephalexin 10ml via g-tube followed by flushing g-tube with 120-150ml water every 8 hrs for 7 days. Red flags discussed. Family has no further questions. ..................... ..................... ..................... ..................... ..................... ..................... ............... [facility] Consulted: Juanita Stephenson ..................... ..................... ..................... ..................... ..................... ..................... ............... Disposition: Fulfilled SEGMD: Last UC results I have is from 09/27/23- Grew Klebsiella staples sensitive except to Augmentin. Pat allergies reviewed. / She is non verbal/ only GT fed Juanita Stephenson MD [address] [place] [address],[address], [place], [address], [employer] 06/04/2024 18:04:08 06/08/2024 text/html CRC Nurse Triage Notes (Deepali Ramriez - RN): Chief Complaints: Urinary symptoms PMH: Epilepsy/Seizure Disorder, Sleep Apnea, Dementia (e.g., Alzheimer's Disease) Comments: patient seen on 06/04 by [facility] for urinary symptoms- malodorous urine. cx resulted on 06/06 showing mixed urogenital freddy >100,000. Patient was started on Keflex. Spoke to sister today who reports odor improved the next day, but then last night odor became stronger again. No new symptoms. Dr. Briones reviewed pt case. [facility] recommendation: Patient should be instructed to complete antibiotics and see their primary doctor tomorrow for re-evaluation. if unable to see PCP a [email or web address]ed visit should be placed over the weekend for repeat evaluation and culture. Patient is homebound--- 1/3 patients sister calling in as she had frequent diarrhea yesterday, she started a new TF 3 days ago, and has received cranberry juice, and received second dose of keflex yesterday. Patient inclined to diarrhea, and takes immodium. She is requesting a visit tomorrow 06/08- AC ..................... ..................... ..................... ..................... ..................... ..................... ............... Outgoing Inspector Note From Louie Dominguez: Dispatched to the call address for the female who had a UTI. Pt is non verbal at baseline. Pts sister is cna caregiver. She advises that a few days ago she was diagnosed with an UTI. Pt has been taking Keflex, sister advises that she appears to be better as her urine is no longer odorous and it is more clear yellow rather than brown. Pt appears to be acting to her baseline per horticulture teacher. Pt was found sitting in bed, in no apparent distress, airway open and patent, breathing non labored, acting to her normal self (based on previous encounters), abd soft non tender/distended, pupils PEERL, -CVA tenderness, skin PWD with good turgor, mucous membranes pink and moist. [facility] consulted. Red flags discussed. ALL times are approx. ..................... ..................... ..................... ..................... ..................... ..................... ............... [facility] Consulted: Delfin Macedo ..................... ..................... ..................... ..................... ..................... ..................... ............... Disposition: Fulfilled Adair Macedo MD [address] [facility],[address], [place], [address], [employer] 06/08/2024 15:38:12 07/23/2024 text/html CRC Nurse Triage Notes (Deepali Ramirez - RN): Reason For Request: Sister Alley needs bloodwork done Chief Complaints: Electrolyte imbalance PMH: Epilepsy/Seizure Disorder, Sleep Apnea, Dementia (e.g., Alzheimer's Disease) PMH Reviewed at 07/23/2024: Allergies Reviewed at 07/23/2024:46 Comments: Sister aware we make exception for [...] ..................... ..................... ..................... ..................... ..................... ..................... ............... Outgoing Inspector Note From Cornel Kaufman: Patient in wheelchair, nonverbal, at baseline according to caregiver. PCP requested labs to check routine thyroid levels. Unable to gauge complaint, if any. Patient pink warm dry secondary exam unremarkable. Lung sounds clear negative increase breathing. Negative edema noted. Sample obtained and brought to [facility]. ..................... ..................... ..................... ..................... ..................... ..................... ............... [facility] Consulted: Kavita Gardner ..................... ..................... ..................... ..................... ..................... ..................... ............... Disposition: Fulfilled Kavita Gardner MD [address] [facility],[address] [facility], [place], [address], [employer] 07/23/2024 19:34:53 OBGyn Episode No OBEpisode recorded.
== END 2024-10-11 17:04 | disposition home or self-care (01) ==
PROVIDERS: PCP Internal Medicine; Visit Provider Internal Medicine
DX: Q90.9 Down syndrome, unspecified (principal); G47.33 Obstructive sleep apnea (adult) (pediatric); Z99.89 Dependence on other enabling machines and devices; Z93.1 Gastrostomy status; E03.9 Hypothyroidism, unspecified

== ENCOUNTER → 2024-10-11 15:58 | Outpatient (BNVA) | payer OTHER, SELFPAY | PROVIDERS: PCP Internal Medicine; Visit Provider Internal Medicine | DX: Q90.9 Down syndrome, unspecified (principal); G47.33 Obstructive sleep apnea (adult) (pediatric); E03.9 Hypothyroidism, unspecified; G40.909 Epilepsy, unspecified, not intractable, without status epilepticus; L89.322 Pressure ulcer of left buttock, stage 2; R32 Unspecified urinary incontinence; Z93.1 Gastrostomy status; Z99.89 Dependence on other enabling machines and devices | CPT/HCPCS: 99212 ==

== ENCOUNTER 2024-11-01 16:26 | Outpatient (AMB) | payer OTHER, SELFPAY ==
--- OUTSIDE RECORDS SUMMARY | 2024-11-01 16:28 | XMS_ITS ---
Author Organization [facility] Address [address] [place] [phone] Care Team Providers Care Senior Safety Management Consultant Name Role Phone Lane Estevez MD Primary Care Provider Michael Jaime Jr Unavailable REASON FOR VISIT concerned site where tube is possilbe infected/put on cancelation list. Encounters Encounter Location Date Provider Diagnosis [facility] [address] [place] [phone] 06/28/2024 Michael Sevilla Jr Plan Of Treatment No Information Progress Notes * RACHNA ALEXANDRIAB:1960 (63 yo F)Acc No.[id number]:06/28/2024 Patient:?EDEN BRISCOE :1960???Age:63 Y???Sex:Female Address:[address] [place], [place] [address], [address] * true * Date:? Generated for Printi ng/Faxing/eTransmitting on:?11/01/2024 04:28 PM EDT
[2024-11-01 16:37] VITALS: BP 106/52; PULSE 73; RESP 16; TEMP 36.6; O2SAT 98
--- NOTE | 2024-11-01 16:37 | AM.OFFVISMDC ---
Intake Vital Signs 11/01/24 16:37 BMI Reason not done Patient refused/unable BP 106/52 L Position Sitting Respiration 16 Pulse 73 Pulse Source Pulse Oximeter Temp 97.9 F Temp Source Temporal Artery Scan Pulse Oximetry (%) 98 Oxygen Delivery Method Room Air Intake Visit Reasons: wellness Allergies fentanyl [FENTANYL] Allergy (Intermediate, Verified 11/01/24 17:01) UNKNOWN codeine [CODEINE] Allergy (Unknown, Verified 11/01/24 17:01) UNKNOWN lorazepam [From ATIVAN] Allergy (Unknown, Verified 11/01/24 17:01) UNKNOWN oxcarbazepine [OXCARBAZEPINE] Allergy (Unknown, Verified 11/01/24 17:01) UNKNOWN penicillin V Allergy (Unknown, Verified 11/01/24 17:01) Unknown Penicillins [PENICILLINS] Allergy (Unknown, Verified 11/01/24 17:01) DIFFICULTY BREATHING Sulfa (Sulfonamide Antibiotics) [SULFA (SULFONAMIDE ANTIBIOTICS)] Allergy (Unknown, Verified 11/01/24 17:01) DIFFICULTY BREATHING famotidine [From Pepcid] Adverse Reaction (Intermediate, Verified 11/01/24 17:01) diarrhea levofloxacin [From LEVAQUIN] Adverse Reaction (Intermediate, Verified 11/01/24 17:01) hallucinations doxycycline Adverse Reaction (Mild, Verified 11/01/24 17:01) Diarrhea Medication List - Last Reconciled 11/01/24 by BRIAN Kohli [nitro gloves size medium As directed] [4x4 LITE Hydrocellular foam dressing As directed] [4x4 lite hydrocellular foam dressings adhesive with 1 inch border ] [10cc syringes As directed] [60 cc syringes As directed] [60 cc syringes As directed] [500ml bottle saline 18 per month As directed] acetaminophen (Tylenol) 650 mg PO BEDTIME azithromycin 500 mg (12.5 mL) PO DAILY 5 days azithromycin 500 mg (12.5 mL) PO DAILY 5 days [BUTT PASTE As directed] [cahdesene baby powder (zinc, aloe, camomile) As directed] [chucks 30 x 36 As directed] [commode liners As directed] [CONVATEC ALOE VESTA CLEANSING FOAM As directed] disposable gloves As directed donepezil 10 mg PO DAILY esomeprazole magnesium DR (Nexium Packet) 20 mg PO DAILY 30 days furosemide (Lasix) 20 mg PO Q OTHER DAY 7 days guaifenesin 400 mg (10 mL) PO Q4H PRN 45 days guaifenesin (Marla-Tussin) 200 mg (10 mL) PO Q4H PRN [heavy ABSORBENCY BED PADS 36x54 As directed] ipratropium bromide 2 sprays intranasal BEDTIME lacosamide (Vimpat) 100 mg PO BEDTIME@2030 Lactobacillus acidophilus 3 tabs PO DAILY lamotrigine 25 mg PO BID levalbuterol HCl 1.25 mg (3 mL) inhalation Q4-6H PRN 90 days levetiracetam (Keppra) 1,350 mg PO BEDTIME@2030 levetiracetam 2 cc in am , 3 cc as needed 14 cc at night orally; levetiracetam (Keppra) 200 mg (2 mL) feeding tube DAILY@0900 levothyroxine 100 mcg PO DAILY@1030 lidocaine HCl 4% (Aspercreme (lidocaine HCl)) 1 appl topical Q8H PRN memantine 10 mg PO DAILY midazolam (Nayzilam) 5 mg intranasal DAILY PRN nystatin 1 appl topical QID [Patient Turning device bedridden patient ] polyethylene glycol 3350 (Miralax) 17 grams PO DAILY [ready bath wipes As directed] sertraline 30 mg (1.5 mL) PO DAILY [silicone foam dressing 4x 8 As directed] silver sulfadiazine 1% 1 appl topical DAILY silver sulfadiazine 1% 1 appl topical BID sodium chloride 0.9% (Wound Wash Saline) 1 appl topical QID PRN tobramycin 0.3% 2 drps ophthalmic (eye) Q4H triamcinolone acetonide 0.05% 1 appl topical BID 5 days triamcinolone acetonide 0.5% 1 appl topical BID 5 days [XL diapers As directed] zinc oxide 40% (Boudreauxs Butt Paste) 1 appl topical BID-QID PRN HPI wellness HPI Details The patient is a 64-year-old nonverbal female presenting for a Medicare wellness visit. Significant past medical history of Down syndrome, Epilepsy, LEONIE on CPAP, G Tube Feedings, and recurrent aspiration pneumonia. Accompanied by her sister, who is her primary manager critical care unit and from whom the information taken. She has a history of aspirated pneumonia associated with difficulties in proper swallowing due to silent aspiration. This condition has necessitated frequent monitoring, especially given her recent bout of pneumonia, which led to a staphylococcal infection while hospitalized. Focusing on her chronic management, she has been dealing with the impacts of COPD which require regular oversight. Her management of the gastrostomy tube has presented challenges, as evidenced by a recent episode where the tube was dislodged and replaced in an emergency setting. This incident accentuates the need for vigilance in handling and procedural care at home. The addition of these management complexities also coincides with her edentulous state, hampering thorough oral hygiene. Efforts to maintain cleanliness include the use of specific sponges to aid in oral care despite the absence of teeth. The patient has been experiencing neurological hallucinations, managed previously through medication adjustments. Recent changes in her medication regimen have balanced the highs that were caused by a previous neurological medication titration. Additionally, her hearing is notably sharp, while her eyesight has diminished, demonstrated by varied recognition capabilities during the day. The patient had her last routine blood work two months prior and is managing her medications, such as Keppra for neurological concerns, with ongoing observation of their effect. The medication regimen was notably discussed due to a change by her neurologist, who is currently reassessing her treatment plan after a dramatic medication increase led to increased drowsiness. [place] of care was reviewed and updated The patient has a healthcare proxy in place and on file HPI Comments History of Present Illness Details reviewed past medical history- yes reviewed surgical / hospitalization history- yes reviewed current medications- yes reviewed family history- yes home safety throw rugs? no grab bars? n/a raised toilet seat? n/a working smoke detectors? yes activities of daily living difficulty bathing or showering?yes-full care needed difficulty dressing? yes difficulty using the toilet? incontinent, full care needed difficulty getting in and out of bed? yes-needs full support difficulty walking?non-ambulatory receives help from other person's with any of the above tasks? Full care needed from caregiver instrumental activities of daily living uses telephone - no gets to place out of walking distance-no go shopping for groceries- no repairs own meals- no does own minor home maintenance-no does own laundry- no does own housework-no manages own money- no currently takes medication- administered by her sister-caregiver end of life planning discussed advanced directives- yes with sister advanced directives on file? yes discussed wishes expressed in advanced directives. n/a fall risk have you had any falls with injuries in the past year? no-caregiver reports have you had 2 or more falls in the past year? no fall risk assessment: yes-risk of falls due to seizure history and needs to be transferred by others [facility] Medical History CHF (congestive heart failure) Physical deconditioning Tracheobronchitis G tube feedings Diastolic heart failure Pneumonia MSSA bacteremia Unspecified skin changes Seizure disorder Respiratory distress Aspiration into airway Dysphagia Dementia Toxic metabolic encephalopathy Epilepsy Hypoxemia Dysphagia causing pulmonary aspiration with swallowing LEONIE on CPAP Down syndrome Surgical History History of back surgery Social History Household Members: Family Household Members Other:: sister Housing: House Do you presently have visiting nurse or other home services: Yes Alcohol intake: never Comment: family member in room Patient Tobacco Use Status: Never used Tobacco e-Cigarette/Vaping Use: Never Used Second Hand Smoke Exposure: No Advance Directives Date on File: 06/18/23 service: No Current occupational status: disabled Cognitive needs: Yes (wheelchair) Hearing needs: No Vision needs: No Questionnaire Medicare Wellness Checkup What [age] What gender do you identify with?: female During the past 4 weeks, how much have you been bothered by emotional problems such as feeling anxious, depressed, irritable, sad or downhearted, and blue?: not at all During the past 4 weeks, has your physical & emotional health limited your social activities with family, friends, neighbors, or groups?: not at all During the past 4 weeks, how much bodily pain have you generally had?: no pain During the past 4 weeks, was someone available to help you if you needed & wanted help?: yes, as much as I wanted During the past 4 weeks, what was the hardest physical activity you could do for at least 2 minutes?: very light Can you get to places out of walking distance without help? (For eg., can you travel alone on buses, taxis or drive your car?): No Can you go shopping for groceries or clothes without someone's help?: No Can you prepare your own meals?: No Can you do your housework without help?: No Because of any health problems, do you need the help of another person with your personal care needs such as eating, bathing, dressing or getting around the house?: No Can you handle your own money without help?: No During the past 4 weeks, how would you rate your health in general?: good During the past 4 weeks how have things been going for you?: pretty well Are you having difficulties driving your car?: not applicable, I don't use a car Do you always fasten your seat belt when you are in a car?: yes, usually During past 4 weeks, have you been bothered by the following: never: Falling or dizzy when standing up, Sexual problems?, Trouble eating well? (G-tube), Teeth or denture problems?, Problems using the telephone? and Tiredness or fatigue? Have you fallen 2 or more times in the past year?: No Are you afraid of falling?: No Are you a smoker?: no During the past 4 weeks, how many drinks of wine, beer, or other alcoholic beverages did you have?: no alcohol at all Do you exercise for about 20 minutes 3 or more times a week?: yes, some of the time Have you been given information to help with the following?: no: Hazards in your house that might hurt you? and no: Keeping track of your medications? How often do you have trouble taking medicines the way you have been told to take them?: I always take medicine as prescribed What is your race?: White Activity of Daily Living Bathing - sponge bath, tub bath or shower: receives help in bathing more than one body part (or not bathed) Dressing - getting clothes from closets & drawers, including inner/outer garments & fasteners.: receives help getting clothes or getting dressed, or stays undressed Toileting - going to the 'toilet room' for urine/bowel elimination & cleaning self/arranging clothes: does not go to room termed toilet for elimination process Transfer: moves in & out of bed or chair with help Continence: supervision helps urination/bowel control; catheter use; incontinent Feeding: receives help feeding or is partly/completely fed by tubes/intravenous Total Score: 5 Information obtained from: informant (sister (caregiver)) Using telephone: dependent Traveling: dependent Shopping: dependent Preparing meals: dependent Housework: dependent Taking medicine: dependent Managing money: dependent PHQ-9 Over the last 2 weeks, how often have you been bothered by any of the following problems? 1. Little interest or pleasure in doing things: not at all 2. Feeling down, depressed, or hopeless: not at all 3. Trouble falling or staying asleep, or sleeping too much: not at all 4. Feeling tired or having little energy: several days 5. Poor appetite or overeating: not at all 6. Feeling bad about yourself - or that you are a failure or have let yourself or your family down: not at all 7. Trouble concentrating on things, such as reading the newspaper or watching television: not at all 8. Moving or speaking so slowly that other people could have noticed. Or the opposite - being so fidgety or restless that you have been moving around a lot more than usual: not at all 9. Thoughts that you would be better off or of hurting yourself in some way: not at all Total score: 1 Depression Screening Interpretation: Positive Depression Screening Done: Yes Source: Developed by Drs. Carlo Donaldson, Danielle Wallace, Eber Lindquist and colleagues, with an educational danna from [employer]. Review of Systems Const Details: Patient is nonverbal and of mental impairment; information below was taken from sister, who is her primary caregiver. She is wheelchair bound. Unobtainable due to mental status Denies weight gain and Denies weight loss Eyes Reports other (Progressive visual impairment) ENT Denies ear discharge, Denies nasal obstruction and Reports other (Recurrent throat secretion, needing to be suctioned) Card Denies diaphoresis, Denies rapid heart rate and Denies slow heart rate Resp Reports cough (Weak cough, needing to be suctioned), Denies hemoptysis, Reports excessive phlegm production, Denies wheezing and Reports other (Recurrent aspiration pneumonia) GI Denies abdominal pain, Reports change in stool character and Reports fecal incontinence Denies hematuria, Reports urinary incontinence, Denies vaginal discharge and Denies vaginal odor Musc Reports stiffness Skin/Breast Denies lesions and Denies rash Neuro Denies behavioral changes Psych Denies behavioral changes Endo Denies change in body appearance Jeff/Lymph Denies easy bleeding and Denies easy bruising Aller/Immun Denies wheezing Physical Exam Vital Signs: Last Vital Signs Pulse 73 11/01/24 16:37 BP 106/52 L 11/01/24 16:37 Pulse Ox 98 11/01/24 16:37 Oxygen Delivery Method Room Air 11/01/24 16:37 Const Other: IPPE/AWV: Balance Romberg: n/a Tandem walk n/a Walk and Turn n/a Rise from sit to stand n/a Vision Corrective lens No Vision screen n/a-not done Hearing Whisper test pass . unable to determine, pt does responds to her sisters voice, but no meaningful responses noted Urinary incont. yes-needs full care EKG Not clinically necessary Assessment & Plan Assessment & Plan (1) Annual wellness visit: Code(s): Z00.00 - Encounter for general adult medical examination without abnormal findings Plan: Preventative measures reviewed with the patient caregiver. No recent labs in EMR, reports of recent labs around 2 months ago. Up-to-date vaccinations and recommended screenings. (2) Hypothyroid: Code(s): E03.9 - Hypothyroidism, unspecified Qualifiers: Hypothyroidism type: acquired Qualified Code(s): E03.9 - Hypothyroidism, unspecified Plan: No recent labs in EMR Continue levothyroxine 100 mcg daily Follow up with endocrinology as scheduled (3) Gastrostomy tube dependent: Code(s): Z93.1 - Gastrostomy status Plan: Intermittent feeding via tube Site without excoriation (4) Pressure ulcer of right buttock, stage 2: Comment: 1 inch x inch Code(s): L89.312 - Pressure ulcer of right buttock, stage 2 Plan: Recurrent pressure injury due to immobility Frequent turning repositioning at least every 2 hours (5) Down syndrome: Comment: TRISOMY 21 PATIENT HAS ADVANCED COGNITIVE IMPAIRMENT SECONDARY TO HER DOWN SYNDROME . SHE NEEDS FULL CARE 26/12 Code(s): Q90.9 - Down syndrome, unspecified Plan: Advanced cognitive impairment requiring 24 hours a full care (6) LEONIE on CPAP: Comment: This patient has long-standing history of obstructive sleep apnea and the sister puts on the CPAP every night, so that she can sleep well. Code(s): G47.33 - Obstructive sleep apnea (adult) (pediatric); Z99.89 - Dependence on other enabling machines and devices Plan: Sister applies CPAP at night to allow proper rest (7) Epilepsy: Comment: Controlled with meds, follows up with Neurology. Code(s): G40.909 - Epilepsy, unspecified, not intractable, without status epilepticus Qualifiers: Epilepsy type: unspecified Intractability: not intractable Status epilepticus: without status epilepticus Qualified Code(s): G40.909 - Epilepsy, unspecified, not intractable, without status epilepticus Plan: Continue Keppra 200 mg at 09:00 and 1350 mg at bedtime Nayzilam 5 mg intranasally daily p.r.n. for breakthrough seizures Follow up with Neurology as scheduled (8) Aspiration pneumonia: Comment: PATIENT IS PRONE TO HAVE ASPIRATIONS. IN THE PAST 2 WEEKS SHE HAS HAD RESPIRATORY INFECTION, TREATED WITH ANTIBIOTICS. THE USE OF ANTIBIOTICS HAD TO CUT SHORT BECAUSE OF DIARRHEA. SHE HAS LOT OF ALLERGIES TO ANTIBIOTICS THEN THE ONLY 1 THAT SHE CAN SAFELY TAKE IS AZITHROMYCIN IN LIQUID FORM. Code(s): J69.0 - Pneumonitis due to inhalation of food and vomit Qualifiers: Aspiration pneumonia type: unspecified Laterality: unspecified laterality Lung location: unspecified part of lung Qualified Code(s): J69.0 - Pneumonitis due to inhalation of food and vomit Plan: Recent treatment for aspiration pneumonia. Ongoing billing up of secretion in the back of the throat complicated by weak cough. Continue intermittent suctioning and oral care Quality Reporting (2019) Depression/Bipolar (159/160/161/177) PHQ-9: Total score: 1 Coding Level of Care Code Medicare First (G0438) Diagnoses Annual wellness visit Z00.00 Acquired hypothyroidism E03.9 Hypothyroidism type: acquired Gastrostomy tube dependent Z93.1 Pressure ulcer of right buttock, stage 2 L89.312 Down syndrome Q90.9 LEONIE on CPAP G47.33; Z99.89 Nonintractable epilepsy without status epilepticus, unspecified epilepsy type G40.909 Epilepsy type: unspecified Intractability: not intractable Status epilepticus: without status epilepticus Aspiration pneumonia, unspecified aspiration pneumonia type, unspecified laterality, unspecified part of lung J69.0 Aspiration pneumonia type: unspecified Laterality: unspecified laterality Lung location: unspecified part of lung Time Spent (min) 43
== END 2024-11-01 17:46 | disposition home or self-care (01) ==
LOC: HO.HMCH 16:26
PROVIDERS: PCP Internal Medicine
DX: Z00.00 Encounter for general adult medical examination without abnormal findings (principal); L89.312 Pressure ulcer of right buttock, stage 2; G40.909 Epilepsy, unspecified, not intractable, without status epilepticus; Z93.1 Gastrostomy status; J69.0 Pneumonitis due to inhalation of food and vomit; E03.9 Hypothyroidism, unspecified; Q90.9 Down syndrome, unspecified; G47.33 Obstructive sleep apnea (adult) (pediatric); Z99.89 Dependence on other enabling machines and devices

== ENCOUNTER → 2024-11-01 16:26 | Outpatient (BNVA) | payer OTHER, SELFPAY | PROVIDERS: PCP Internal Medicine ==

== ENCOUNTER 2024-11-26 12:34 | Outpatient (REF) | payer OTHER, SELFPAY ==
[2024-11-26 13:09] VITALS: BP 130/85; PULSE 71; RESP 18; TEMP 37.2; O2SAT 96; BMI 28.3
--- OUTSIDE RECORDS SUMMARY | 2024-11-26 14:06 | XMS_ITS | Patient Health Record ---
Author Organization [facility] Address [address] [place] [phone] Care Team Providers Care Break Up Worker Name Role Phone Lane Estevez MD Primary Care Provider Michael Jaime Jr Unavailable Reason For Referral No Information Problems Problem Type SNOMED Code ICD Code Onset Dates Problem Status W/U Status Risk Notes Problem Dysphagia (37802286) Dysphagia (R13.10) Active confirmed Problem 66422478 Dysphagia, unspecified type (R13.10) Active confirmed Problem 329670868 Malfunction of gastrostomy tube (K94.23) Active confirmed Encounters Encounter Location Date Provider Diagnosis [facility] [place] [address] [place] [phone] 02/21/2024 Michael Sevilla Jr Dysphagia R13.10 and Gastrostomy malfunction K94.23 [facility] [place] [address] [place] [id number] 11/26/2024 Michael Sevilla Jr [facility] [address] [place] [phone] 02/13/2024 Michael Sevilla Jr [facility] [address] [place] [phone] 02/20/2024 Michael Sevilla Jr [facility] [address] [place] [phone] 03/27/2024 Michael Sevilla Jr [facility] [address] [place] [phone] 06/28/2024 Michael Sevilla Jr [facility] [address] [place] [phone] 08/08/2024 Michael Sevilla Jr [facility] [address] [place] [phone] 11/06/2024 Michael Sevilla Jr Assessments Encounter Date Diagnosis (ICD Code) Assessment Notes Treatment Notes Treatment Clinical Notes Section Notes 02/21/2024 Gastrostomy malfunction (ICD-10 - K94.23) 02/21/2024 Dysphagia (ICD-10 - R13.10) Plan Of Treatment No Information Insurance Providers Payer Name Payer Address Payer Phone Subscriber Number Group Number Insured Name Patient Relationship to Insured Coverage Start Date Coverage End Date [facility] [address] Attn Claims YOBANI Sharma [id number] EDEN BRISCOE Self - patient is the insured
--- NOTE | 2024-11-26 21:34 | OP_ITS ---
DATE OF SERVICE: 11/26/2024 SURGEON: Michael Sevilla MD INDICATIONS: Leaking G-tube. PREOPERATIVE DIAGNOSIS: POSTOPERATIVE DIAGNOSIS: PROCEDURE PERFORMED: G-tube change. ESTIMATED BLOOD LOSS: COMPLICATIONS: ANESTHESIA: None. ASSISTANTS: SPECIMENS: DESCRIPTION OF PROCEDURE: A history and physical was performed. The risks and benefits of the procedure were explained to the patient's guardian and informed consent was obtained. The patient was placed in the supine position in her wheelchair in the minor surgery suite. The old G-tube was inspected and found to be intact. There was some granulation tissue at the site, and the site appeared to be in good repair. The balloon on the old G-tube was deflated, and the G-tube was removed. Next, an 18-Georgian replacement tube was easily placed after initial attempts to use a 20-Georgian tube could not be done. The balloon was inflated on the new G-tube, and gastric contents were aspirated. Auscultation with air was used to verify intragastric position as well. The site was dressed with a drain sponge and instructions were given to the patient's guardian on care and use of the G-tube. IMPRESSION: G-tube replacement. RECOMMENDATION: Follow up as needed. MD KEESHA Barron/NENAL / [id number]
== END 2024-11-26 12:35 | disposition home or self-care (01) ==
LOC: HO.MS 12:34
PROVIDERS: PCP Internal Medicine; Visit Provider Internal Medicine Gastroenterology
PROC: (CPT 43762; principal; 2024-11-26 13:50)
DX: K94.23 Gastrostomy malfunction (principal); Y84.8 Other medical procedures as the cause of abnormal reaction of the patient, or of later complication, without mention of misadventure at the time of the procedure; Y82.8 Other medical devices associated with adverse incidents
CPT/HCPCS: 43762

== ENCOUNTER 2024-11-26 13:54 | Outpatient (REF) | payer OTHER, SELFPAY ==
[2024-11-26 14:37] LABS: MANUAL DIFF FLAG NO
[2024-11-26 14:45] LABS: Basophils Absolute Auto 0.1 X10*3/uL (0.0-0.2); Eosinophils Absolute Auto 0.1 X10*3/uL (0.0-0.4); Eosinophils Percent Auto 2.3 % (0-4); Hematocrit 40.7 % (37.0-47.0); Hemoglobin 13.6 g/dl (12.0-16.0); Imm Gran Abs Auto 0.06 X10*3/uL (0.00-0.03); Imm Gran Pct Auto 1.2 % (0.0-0.4); Lymphocytes Absolute Auto 1.3 X10*3/uL (1.2-4.9); Lymphocytes Percent Auto 25.2 % (20-40); Mean Corpuscular HGB Conc 33.4 g/dl (31.0-35.0); Mean Corpuscular Hemoglobin 35.1 pg (27.0-33.0); Mean Corpuscular Volume 105.2 fL (80.0-98.0); Mean Platelet Volume 11.1 fL (9.4-12.3); Monocytes Absolute Auto 0.6 X10*3/uL (0.1-1.2); Monocytes Percent Auto 11.9 % (2-11); Neutrophils Percent Auto 58.4 % (45-73); Platelet Count 181 X10*3/uL (160-400); Red Blood Count 3.87 X10*6/uL (4.20-5.50); Red Cell Distribution Width 13.5 % (11.0-16.0); White Blood Count 5.1 X10*3/uL (4.8-10.8)
[2024-11-26 15:01] LABS: Estimated Average Glucose 100 mg/dL; Hemoglobin A1C 114.0526 umol/L; Hemoglobin A1c % 5.1 % (<6.0); Total Hemoglobin (HGBA1C) 3546.0428 umol/L
[2024-11-26 15:18] LABS: Alanine Aminotransferase 22 U/L (0-31); Albumin Level 3.8 g/dL (3.5-5.0); Alkaline Phosphatase 156 U/L (39-117); Anion Gap 13 (12-20); Aspartate Amino Transferase 21 U/L (5-31); Bilirubin Total 0.6 mg/dL (0.0-1.0); Blood Urea Nitrogen 18 mg/dL (9-16); Calcium 9.6 mg/dL (8.4-10.2); Carbon Dioxide 30 mmol/L (22-29); Chloride 106 mmol/L (96-108); Estimated Glomerular Filt Rate > 60; Glucose Random 86 mg/dL (60-115); Magnesium 2.4 mg/dL (1.6-2.6); Phosphorus 3.6 mg/dL (2.7-4.5); Potassium 4.1 mmol/L (3.3-5.1); Sodium 145 mmol/L (135-145); Total Protein 7.1 g/dL (6.5-8.0)
[2024-11-26 15:31] LABS: TSH reflex Free T4 2.49 uIU/mL (0.32-4.0)
[2024-11-26 15:35] LABS: Free T4 (Free Thyroxine) 1.26 ng/dL (0.71-1.85); Thyroid Stimulating Hormone 2.46 uIU/mL (0.32-4.0); Vitamin D 25-OH Total 27.1 ng/mL (>30)
[2024-11-26 15:46] LABS: Folate 14.2 ng/mL (> or = 4.0); Vitamin B12 790 pg/mL (200-900)
[2024-11-28 11:59] LABS: Levetiracetam Keppra 27.8 mcg/mL (6.0-46.0)
[2024-11-30 00:03] LABS: Lacosamide 5.1 mcg/mL
[2024-12-04 06:13] LABS: Vitamin B6 21.3 ng/mL (2.1-21.7)
== END 2024-11-26 13:55 | disposition home or self-care (01) ==
LOC: HO.LAB 13:54
PROVIDERS: PCP Internal Medicine; Visit Provider Internal Medicine
DX: Z00.00 Encounter for general adult medical examination without abnormal findings (principal); E03.9 Hypothyroidism, unspecified; G40.909 Epilepsy, unspecified, not intractable, without status epilepticus; Z93.1 Gastrostomy status; Q90.9 Down syndrome, unspecified; G47.33 Obstructive sleep apnea (adult) (pediatric); Z99.89 Dependence on other enabling machines and devices; J69.0 Pneumonitis due to inhalation of food and vomit
CPT/HCPCS: 36415; 80053; 80177; 80235; 82306; 82607; 82746; 83036; 83735; 84100; 84207; 84439; 84443; 85025

== ENCOUNTER 2024-12-12 15:50 | Outpatient (AMB) | payer OTHER, SELFPAY ==
--- OUTSIDE RECORDS SUMMARY | 2024-12-12 15:52 | XMS_ITS | Data Portability ---
Author Organization [place] 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 Sister provided history but was wandering and [...] a 59-year-old female that is known to [facility] but new to this provider. She [...] X which is the same image accompanied [facility] uses. The patient's sister contacted [facility] hoping that the provider responding today would initiate treatment based off of the chest x-ray ordered by PCP. She reports her sister has been having a wet cough since Monday. Exam: On exam patient is awake and alert, afebrile and hemodynamically stable. Oxygen level of 98% on room air. She had no increased worker breathing, she did not cough at all while [facility] was on seen. She overall looks fairly well. DDx considered, but not limited to:Pneumonia considered, [facility] was unable to view any of [...] sister but it would be inappropriate poor [facility] to initiate treatment without having the full record or images from recent chest x-rays. I have advised that they follow up with premier care provider regarding further treatment recommendations. I [...] today. Time On Scene with Patient: 00:39:39 [email or web address] Not available 01/01/2020 15:54:46 Plan of Treatment Reminders Order Date Submit Date Provider Last Modified By Organization Details Last Modified Time Details Appointments None recorded. Lab CBC w/ auto diff - [facility] (Centralized Electronic Ordering - All Locations), Patient Can Go To The Location Of Their Choice, [id number] 0 23:59:15 rapid flu (A+B) 2019 020 veronica [facility], [address] [place] [address], [address], 0 14:29:04 [facility] [place] (Centralized Electronic Ordering - All Locations), Patient Can Go To The Location Of Their Choice, [address] 0 15:56:38 BMP + ionized calcium, serum or plasma 2019 020 [place] (Centralized Electronic Ordering - All Locations), Patient Can Go To The Location Of Their Choice, 0 15:56:38 Referral None recorded. Procedures None recorded. Surgeries None recorded. Imaging XR, chest, 2 view [facility] 019 [facility] ([facility]), [address], [place], [address], 9 11:58:18 Medication Orders doxycycli ne hyclate 100 mg capsule 2018 019 veronica [id number], [address] [place], [address], 0 13:49:50 Patient TargetsNo targets recorded. Patient Instructions Encounter Date Encounter Id Patient Instructions Last Modified By Organization Details Last Modified Time 07/06/2019 [id number] Thank you for yo ur [facility]. We cannot always find the exact [...] in your condition between 8am-10pm, please call [facility] at [phone] to help navigate your care. Viral Illness [...] in your condition between 8am-10pm, please call [facility] at [phone] to help navigate your care. [email or web address] Not available 07/06/2019 14:24:57 01/01/2020 [id number] Inhaler Instructions Before use, you need to prime the inhaler: Take the cap off the mouthpiece and put the inhaler in the spacer Shake the inhaler for 5 seconds Hold the inhaler upright with 1 finger on the top of the canister, the thumb on the bottom of the inhaler, and your other hand holding the spacer Express a large breath Close lips around spacer Press down on the canister After you press down on the canister, breathe (or have your child breathe in) deeply and slowly and hold your breath for 10 seconds Take out of your mouth and slowly exhale If you were instructed to take 2 puffs of the inhaler, wait one minute before you give the second puff. Shake the inhaler again before the second puff. If the inhaler is a steroid medicine (also called a glucocorticoid or corticosteroid ), rinse out your mouth, gargle, and spit out the water Cleaning: If you use the inhaler every day, you need to clean it at least once a week. If you use less often, clean the inhaler when you see powder in or around the hole. To clean an inhaler: Remove the canister and cap from the mouthpiece. Do not wash the canister or put the canister under water. Run warm water through the mouthpiece for 30 to 60 seconds Shake the water off of the mouthpiece and let it air dry Clean the spacer every 1-2 weeks. First, remove the inhaler from the spacer. Wash the spacer with warm water and dishwashing soap, but do NOT rinse it. Then let it air dry. Leaving the spacer a little soapy after cleaning actually helps it work better. [email or web address] Not available 01/01/2020 14:47:31 Reason for Referral None Reported. Results Created Date Observation Date Name Description Value Unit Range Abnormal Flag Note LastModifiedBy Organization Detail LastModifiedTime 07/06/19 20 07/06/2019 rapid flu (A+B) Flu A negati ve Not Available [facility] [address] [place], [address], 07/06/2019 13:51:02 07/06/19 20 07/06/2019 rapid flu (A+B) Flu B negati ve Not Available [facility] [address] [place], [address], 07/06/2019 13:51:02 07/06/19 20 07/06/2019 rapid flu (A+B) Control Visual ized / Valid Not Available [facility] [address] [place], [address], 07/06/2019 13:51:02 01/01/2001/01/2020 CBC w/ auto diff [...] Choice, 01/01/2020 23:59:01/01/2001/01/2020 CBC w/ auto diff MCHC 30.9 g/dL [...] Choice, 01/01/2020 23:59:01/01/2001/01/2020 CBC w/ auto diff automated NRBC 0.0 #/100 _WBC' s Not Available [facility] (Centralized Electronic Ordering - All Locations) Patient Can Go To The Location Of Their Choice, 01/01/2020 23:59:15 01/01/2001/01/2020 CBC w/ auto diff abs. NRBC 0.0 K/mm3 Not Available [facility] (Centralized Electronic Ordering - All Locations) Patient Can Go To The Location Of Their Choice, 01/01/2020 23:59:15 01/01/2001/01/2020 CBC w/ auto diff neut # 2.2 [...] 23:59:15 01/01/2001/01/2020 CBC w/ auto diff eo # 0.1 K/mm3 (0.0-0 .4) Not Available [facility] (Centralized Electronic Ordering - All Locations) Patient Can Go To The Location Of Their Choice, 01/01/2020 23:59:15 01/01/2001/01/2020 CBC w/ auto diff baso # 0.1 [...] 01/01/2020 23:59:15 01/01/2001/01/2020 CBC w/ auto diff monocyte 13.1 % (4.5-1 0.5) high Not Available [facility] (Centralized Electronic Ordering - All Locations) Patient Can Go To The Location Of Their Choice, 01/01/2020 23:59:15 01/01/20 20 01/01/2020 CBC w/ auto diff eo 2.0 % (0-6) Not Available [facility] (Centralized Electronic Ordering - All Locations) Patient Can Go To The Location Of Their Choice, 01/01/2020 23:59:15 01/01/20 20 01/01/2020 CBC w/ auto diff baso 1.5 % (0-2) Not Available [facility] (Centralized Electronic Ordering - All Locations) Patient Can Go To The Location Of Their Choice, 01/01/2020 23:59:15 01/01/2001/01/2020 CBC w/ auto diff imm gran 0.9 % Not Available [facility] (Centralized Electronic Ordering - All Locations) Patient Can Go To The Location Of Their Choice, [address] 01/01/2020 23:59:15 05/17/20 19 05/17/2019 XR, chest , 2 view XRAY CHEST [...] MOLINA M.D. 2018 11:49: 23 AM EST. mirna [facility]) [address], [place], [address], 05/20/2019 08:39:27 Result Notes Documentation Provider Name and Address Organization Details Recorded Time Xr, Chest, 2 View : XRAY CHEST 2 VIEW FINDINGS: There is mild increase in the pulmonary interstitial markings at both lung bases without focal consolidation seen. No pleural effusions are seen. The heart is within the upper limits of normal in size. Hilar areas are normal. Pulmonary vasculature is normal. CONCLUSION: Mild increase in the pulmonary interstitial markings at both lung bases. This could be interstitial pneumonia. Follow-up films might be of value. ELECTRONICALLY SIGNED BY JESSICA WEBSTER M.D. 05/17/2019 11:49:23 AM EST. XRAY CHEST 2 VIEW Results: There is mild increase in the pulmonary interstitial markings at both lung bases without focal consolidation seen. No pleural effusions are seen. The heart is within the upper limits of normal in size. Hilar areas are normal. Pulmonary vasculature is normal. Conclusion: Mild increase in the pulmonary interstitial markings at both lung bases. This could be interstitial pneumonia. Follow-up films might be of value. Electronically signed by JESSICA WEBSTER M.D. 05/17/2019 11:49:23 AM EST. YOBANI MCCORMICK [address], [place], [address], [place] [facility] 05/20/2019 08:39:27 Procedures Surgical History Date Name Laterality Status Provider Name and Address Organization Details Recorded Time 01/01/20 20 Venipuncture - DH completed VINH PLASENCIA NP [address], [place], [address], [place] [facility] 01/01/2020 15:50:17 Imaging Results None recorded. Procedure Notes None recorded. Medical Equipment None Reported. Allergies Allergen ID Allergen Name Allergen Category Reaction Reaction Severity Criticality Documentation Date Start Date Code Code System Note Provider Name and Address Organization Details Recorded Time 74084 Substance with sulfonami de structure and antibacte rial mechanism of action (substanc e) medicatio n Not available Not available Not available 05/16/2019 54153 8003 SNOMED DOMENICO LEWIS, PA [address], [place], [address], [place] [facility] 9 13:54:14 15051 Product containin g penicilli n (product) medicatio n Not available Not available Not available 05/16/2019 47132 8001 SNOMED DOMENICO LEWIS, PA [address], [place], [address], [place] [facility] 9 13:54:21 79583 Ativan medicatio n Not available Not available Not available 05/16/2019 09822 9 RxNorm DOMENICO LEWIS, PA [address], [place], [address], [place] [facility] 9 13:58:43 87574 codeine medicatio n Not available Not available Not available 05/16/2019 2670 RxNorm DOMENICO LEWIS, PA [address], [place], [address], [place] [facility] 9 13:58:52 79034 oxcarbaze pine medicatio n Not available Not available Not available 05/16/2019 67518 RxNorm DOMENICO LEWIS, PA [address], [place], [address], [place] [facility] 9 13:59:00 14594 fentanyl medicatio n Not available Not available Not available 05/16/2019 4337 RxNorm DOMENICO LEWIS, PA [address], [place], [address], [place] [facility] 9 [...] Not Available Not Available Vitals Date Recorded Respiratory rate Body temperature Oxygen saturation Oxygen saturation in Arterial blood by Pulse oximetry Heart rate Systolic And Diastolic Provider Name and Address Organization Details Last Updated DateTime 0 16 /min 97.3 [degF] 100 % 100 % 93 /min 140/74 mm[Hg] Not Available [facility] 0 13:53:28 Date Recorded Body temperature Oxygen saturation Oxygen saturation in Arterial blood by Pulse oximetry Heart rate Respiratory rate Systolic And Diastolic Provider Name and Address Organization Details Last Updated DateTime 0 97.8 [degF] 98 % 98 % 86 /min 16 /min 106/60 mm[Hg] Not Available [facility] 0 14:51:24 Date Recorded Body temperature Oxygen saturation Oxygen saturation in Arterial blood by Pulse oximetry Heart rate Respiratory rate Systolic And Diastolic Provider Name and Address Organization Details Last Updated DateTime 9 97.2 [degF] 100 % 100 % 60 /min 20 /min 102/58 mm[Hg] Not Available [facility] 9 14:08:13 Social History Question Answer Notes LastModified by [employer] ion Details LastModified Time Tobacco Smoking Status Never Smoker YOBANI MCCORMICK [address], [place], [address], [place] [facility] 05/16/2019 14:00:01 Do You Have An Advance Directive? Yes Information not available 05/16/2019 What Is Your Code Status? Full Code Information not available 05/16/2019 Drugs Abused 0 Information not available 05/16/2019 How Many Days In The Past Year Have You Had A Heavy Drinking Consumption (4+ Female, 5+ Male)? 0 Information not available 05/16/2019 Marital Status Single Informatio n not available 05/16/2019 What Was The Date Of Your Most Recent Tobacco Screening? 05/16/2019 Information not available 05/17/2019 Sex: Unknown Functional Status Question Answer Note LastModified by Organizat ion Details LastModified Time Do you or have you ever used smokeless tobacco? Never used smokeless tobacco Information not available 05/16/2019 Do you or have you ever used e-cigarettes or vape? Never used electronic cigarettes Information not available 05/16/2019 Mental Status None recorded. Family History Relationship Description Onset Age of this Age Resolved Age Notes LastModified by Organization Details LastModified Time Mother Heart disease lsaloio Not available 2018 13:59:53 Medical History Condition Response Diabetes N Coronary Artery Disease N High Cholesterol N Pulmonary Embolism N Cancer N Hypertension N Stroke N Asthma N COPD N Depression N Kidney Disease N Gynecological HistoryNo gynecological history recorded. Obstetrics History GPAL:G 0 P 0 0 0 0 Past Encounters Encounter ID Performer Location Encounter Start Date Encounter Closed Date Diagnosis/Indication Diagnosis SNOMED-CT Code Diagnosis ICD10 Code Diagnosis Note [id number] Y[place] MCCORMICK [facility] [address] [employer] [place] [address] 05/16/2019 13:45:38 05/17/2019 09:35:15 Acute upper respiratory infection 72833016 J06.9 [id number] RODRIGUEZ BESS NP [facility] [address] [employer] [address] 07/06/2019 13:43:58 07/08/2019 12:59:59 Seizure disorder 950025313 G40.909 Fatigue 22136778 R53.83 [id number] VINH PLASENCIA NP [facility] [address] [place] [address] 01/01/2020 14:46:33 01/02/2020 14:46:11 Cough 46477247 R05 Bronchopneumonia 2477387 07 J18.0 Health Concerns Section Related Observation LastModified by Organization Detai ls LastModified Time None Recorded Concern Status LastModified by Organization Details LastModified Time None Recorded Advance Directives Directive Y: Payers Insurance Date Sequence Insurance Name Policy Number Policy Ballard Covered Member ID Ballard Member ID Guarantor Name 01/01/2020 2 [place] [facility] Ann Marie Gold [id number] Ann Marie Gold 05/16/2019 1 [place] B[place] [employer] Ann Marie Gold [id number] Ann Marie Gold 01/01/2020 1 [place] [employer] Ann Marie Gold [id number] Ann Marie Gold 05/16/2019 1 *SELF PAY* Ann Marie Gold [id number] Ann Marie Gold Notes Date Note Type [...] be given. YOBANI MCCORMICK [address], [place], [address], [place] [facility] 05/16/2019 14:50:08 07/06/2019 text/html Pt was seen [...] again. RODRIGUEZ BESS NP [address], [place], [address], [place] [facility] 07/06/2019 15:17:24 01/01/2020 text/html This is a 59-year-old female that is known to [facility] new to this provider. She has a medical history significant for Down syndrome, seizures, dementia, hypothyroidism and chronic postnasal drip. Her sister contacted [facility] because she wanted antibiotics for her [...] her with any further antibiotics. She contacted [facility] since [facility] also uses the same mobile imaging services as her PCP, she was hoping that the provider on scene today would prescribe antibiotics based off of the last chest x-ray that was ordered by the PCP. [facility] does use [facility] imaging services however we were only able to read reports of x-rays that we ordered. VINH PLASENCIA NP [address] [place] [address] [place], [place], [address], [place] [facility] 01/01/2020 18:14:18 OBGyn Episode No OBEpisode recorded.
--- OUTSIDE RECORDS SUMMARY | 2024-12-12 15:52 | XMS_ITS | Patient Health Record ---
Author Organization [facility] Address [address] [place] [address] Care Team Providers Care Rn Birthing Name Role Phone Lane Estevez MD Primary Care Provider Michael Jaime Jr Unavailable Reason For Referral No Information Problems Problem Type SNOMED Code ICD Code Onset Dates Problem Status W/U Status Risk Notes Problem Dysphagia (45279132) Dysphagia (R13.10) Active confirmed Problem 23288459 Dysphagia, unspecified type (R13.10) Active confirmed Problem 362474050 Malfunction of gastrostomy tube (K94.23) Active confirmed Encounters Encounter Location Date Provider Diagnosis [facility] [address] [place] [id number] 02/21/2024 Michael Sevilla Jr Dysphagia R13.10 and Gastrostomy malfunction K94.23 [facility] [address] [place] [id number] 11/26/2024 Michael Sevilla Jr Dysphagia R13.10 and Gastrostomy malfunction K94.23 [facility] [address] [place] [address] 02/13/2024 Michael Sevilla Jr [facility] [address] [place] [phone] 02/20/2024 Michael Sevilla Jr [facility] [address] [place] [phone] 03/27/2024 Michael Sevilla Jr [facility] [address] [place] [address] 06/28/2024 Michael Sevilla Jr [facility] [address] [place] [id number] 08/08/2024 Michael Sevilla Jr [facility] [address] [place] [address] 11/06/2024 Michael Sevilla Jr Assessments Encounter Date Diagnosis (ICD Code) Assessment Notes Treatment Notes Treatment Clinical Notes Section Notes 02/21/2024 Gastrostomy malfunction (ICD-10 - K94.23) 02/21/2024 Dysphagia (ICD-10 - R13.10) 11/26/2024 Gastrostomy malfunction (ICD-10 - K94.23) 11/26/2024 Dysphagia (ICD-10 - R13.10) Plan Of Treatment No Information Insurance Providers Payer Name Payer Address Payer Phone Subscriber Number Group Number Insured Name Patient Relationship to Insured Coverage Start Date Coverage End Date [facility] [address] Attn Claims [place] [id number] EDEN BRISCOE Self - patient is the insured
[2024-12-12 15:55] VITALS: BP 102/64; PULSE 58; O2SAT 94
--- NOTE | 2024-12-12 15:55 | A.OFFVIS_ITS ---
Vital Signs 12/12/24 15:55 Height 5 ft 1 in BMI Reason not done Patient refused/unable BP 102/64 Blood Pressure Location Lt brachial Position Sitting Pulse 58 Pulse Source Pulse Oximeter Pulse Oximetry (%) 94 Oxygen Delivery Method Room Air Intake Visit Reasons: f/u vest Intake Note: pt is here for follow up and states she has been having to sunction about 4 x a week, when doing this sometimes it is post nasal drip related., when phlegm does come out it is yellow, could this be from sitting in the back of throat for a while, it is thick. Bioinformatics Support Specialist Required: No Allergies fentanyl (FENTANYL) Allergy (Intermediate, Verified 12/12/24 16:22) UNKNOWN codeine (CODEINE) Allergy (Unknown, Verified 12/12/24 16:22) UNKNOWN lorazepam (From ATIVAN) Allergy (Unknown, Verified 12/12/24 16:22) UNKNOWN oxcarbazepine (OXCARBAZEPINE) Allergy (Unknown, Verified 12/12/24 16:22) UNKNOWN penicillin V Allergy (Unknown, Verified 12/12/24 16:22) Unknown Penicillins (PENICILLINS) Allergy (Unknown, Verified 12/12/24 16:22) DIFFICULTY BREATHING Sulfa (Sulfonamide Antibiotics) (SULFA (SULFONAMIDE ANTIBIOTICS)) Allergy (Unknown, Verified 12/12/24 16:22) DIFFICULTY BREATHING famotidine (From Pepcid) Adverse Reaction (Intermediate, Verified 12/12/24 16:22) diarrhea levofloxacin (From LEVAQUIN) Adverse Reaction (Intermediate, Verified 12/12/24 16:22) hallucinations doxycycline Adverse Reaction (Mild, Verified 12/12/24 16:22) Diarrhea Medication List - Last Reconciled 12/12/24 by Sommer Whitlock MD [nitro gloves size medium As directed] [4x4 LITE Hydrocellular foam dressing As directed] [4x4 lite hydrocellular foam dressings adhesive with 1 inch border ] [10cc syringes As directed] [60 cc syringes As directed] [60 cc syringes As directed] [500ml bottle saline 18 per month As directed] acetaminophen (Tylenol) 650 mg PO BEDTIME azithromycin 500 mg (12.5 mL) PO DAILY 5 days azithromycin 500 mg (12.5 mL) PO DAILY 5 days [BUTT PASTE As directed] [cahdesene baby powder (zinc, aloe, camomile) As directed] [chucks 30 x 36 As directed] [commode liners As directed] [CONVATEC ALOE VESTA CLEANSING FOAM As directed] disposable gloves As directed donepezil 10 mg PO DAILY esomeprazole magnesium DR (Nexium Packet) 20 mg PO DAILY 30 days furosemide (Lasix) 20 mg PO Q OTHER DAY 7 days guaifenesin 400 mg (10 mL) PO Q4H PRN 45 days guaifenesin (Marla-Tussin) 200 mg (10 mL) PO Q4H PRN [heavy ABSORBENCY BED PADS 36x54 As directed] ipratropium bromide 2 sprays intranasal BEDTIME lacosamide (Vimpat) 100 mg PO BEDTIME@2030 Lactobacillus acidophilus 3 tabs PO DAILY lamotrigine 25 mg PO BID levalbuterol HCl 1.25 mg (3 mL) inhalation Q4-6H PRN 30 days levetiracetam (Keppra) 1,350 mg PO BEDTIME@2029 levetiracetam 2 cc in am , 3 cc as needed 14 cc at night orally; levetiracetam (Keppra) 200 mg (2 mL) feeding tube DAILY@0900 levothyroxine 100 mcg PO DAILY@1030 lidocaine HCl 4% (Aspercreme (lidocaine HCl)) 1 appl topical Q8H PRN memantine 10 mg PO DAILY midazolam (Nayzilam) 5 mg intranasal DAILY PRN nystatin 1 appl topical QID [Patient Turning device bedridden patient ] polyethylene glycol 3350 (Miralax) 17 grams PO DAILY [ready bath wipes As directed] sertraline 30 mg (1.5 mL) PO DAILY [silicone foam dressing 4x 8 As directed] silver sulfadiazine 1% 1 appl topical DAILY silver sulfadiazine 1% 1 appl topical BID sodium chloride 0.9% (Wound Wash Saline) 1 appl topical QID PRN tobramycin 0.3% 2 drps ophthalmic (eye) Q4H triamcinolone acetonide 0.05% 1 appl topical BID 5 days triamcinolone acetonide 0.5% 1 appl topical BID 5 days [XL diapers As directed] zinc oxide 40% (Boudreauxs Butt Paste) 1 appl topical BID-QID PRN Do you need a note to return to daycare/school/sports/work: No HPI HPI f/u vest: Details: Ann Marie is brought in by her brother and older sister for pulmonary evaluation and advice. She is a case of down syndrome, has had gradual deterioration in mental status. Remains nonverbal, has had difficulty in swallowing food so she is on G-tube feedings. Has intermittent bouts of cough. According to the sister the cough is mostly as result of postnasal drip and accumulation of mucus in the throat. She does have cough assistance device ( vest ) which is being used only as needed, about once a day. Respiratory status has remained fairly stable. According to the sister she had has had a few bouts of respiratory infection and usually she is treated with liquid azithromycin for 5 days. The brother and the older sister or taking an excellent care of her . She also has sleep apnea diagnosed about 3 or. 4 years ago at [facility] and she uses CPAP regularly with fullface mask( a-Fit 40 ) which is comfortable [facility] Medical History CHF (congestive heart failure) Physical deconditioning Tracheobronchitis G tube feedings Diastolic heart failure Pneumonia MSSA bacteremia Unspecified skin changes Seizure disorder Respiratory distress Aspiration into airway Dysphagia Dementia Toxic metabolic encephalopathy Epilepsy Hypoxemia Dysphagia causing pulmonary aspiration with swallowing LEONIE on CPAP Down syndrome Surgical History History of back surgery Social History Household Members: Family Household Members Other:: sister Housing: House Do you presently have visiting nurse or other home services: Yes Alcohol intake: never Comment: family member in room Patient Tobacco Use Status: Never used Tobacco e-Cigarette/Vaping Use: Never Used Second Hand Smoke Exposure: No Advance Directives Date on File: 06/18/23 service: No Current occupational status: disabled Cognitive needs: Yes (wheelchair) Hearing needs: No Vision needs: No Review of Systems Const All systems reviewed & are unremarkable except as noted in HPI and below and Unobtainable due to mental status Physical Exam Vital Signs: Last Vital Signs Pulse 58 12/12/24 15:55 BP 102/64 12/12/24 15:55 Pulse Ox 94 12/12/24 15:55 Oxygen Delivery Method Room Air 12/12/24 15:55 TUSHAR IS IN THE STRETCHER. SHE IS NONCOMMUNICATIVE, DOES NOT EVEN MAKE EYE CONTACT. SHE IS NOT HAVING ANY RESPIRATORY DISTRESS. CAN NOT EXAMINE HER THROAT. NECK IS SHORT AND OBESE. CHEST: PERCUSSION NOTE IS RESONANT BUT DECREASED OVER THE BASILAR AREAS. LUNGS: SHE DOES HAVE EQUAL AERATION ON BOTH SIDES. BREATH SOUNDS ARE DISTANT OVER THE LOWER LOBES. NO WHEEZES OR CREPITATIONS ARE HEARD. ABDOMEN : GASTROSTOMY TUBE IN PLACE ABDOMEN IS OBESE AND PROTUBERANT , SOFT AND NO PALPABLE MASS. EXTREMITIES: NO EVIDENCE OF PHLEBITIS AND THERE IS NO PITTING EDEMA AT THIS TIME Assessment & Plan Assessment & Plan (1) Down syndrome: Comment: TRISOMY 21 PATIENT HAS ADVANCED COGNITIVE IMPAIRMENT SECONDARY TO HER DOWN SYNDROME . SHE NEEDS FULL CARE 26/12 SHE REMAINS NONVERBAL, IN THE CHAIR TO BED. Code(s): Q90.9 - Down syndrome, unspecified Category: Medical Plan: FULL CARE PROVIDED BY THE BROTHER AND HER ELDER SISTER. (2) G tube feedings: Comment: PATIENT WAS HAVING RECURRENT ASPIRATION PNEUMONIA AND RESPIRATORY INFECTIONS DUE TO HER DIFFICULTY IN SWALLOWING. SINCE SHE HAS G-TUBE PLACE HE IS DOING VERY WELL AND HAS HAD NO ASPIRATION PNEUMONIA . TOLERATES INTERMITTENT FEEDINGS. Code(s): Z93.1 - Gastrostomy status Category: Medical Plan: SISTER IS COMMENDED FOR PROVIDING EXCELLENT CARE (3) Aspiration pneumonia: Comment: PATIENT IS PRONE TO HAVE ASPIRATIONS. MUCH LESS SINCE SHE IS ON G-TUBE FEEDINGS. SHE IS PRONE TO HAVE RECURRENT RESPIRATORY INFECTIONS, AND USUALLY TREATED WITH LIQUID AZITHROMYCIN. Code(s): J69.0 - Pneumonitis due to inhalation of food and vomit Category: Medical Qualifiers: Aspiration pneumonia type: unspecified Laterality: unspecified laterality Lung location: unspecified part of lung Qualified Code(s): J69.0 - Pneumonitis due to inhalation of food and vomit Plan: AT PRESENT DOES NOT NEED ANY ANTIBIOTIC TREATMENT. SISTER IS WELL TRAINED TO DO UPPER AIRWAYS SUCTIONING, IF THERE IS ANY SUSPICION OF ASPIRATION. (4) LEONIE on CPAP: Comment: This patient has long-standing history of obstructive sleep apnea and the sister puts on the CPAP every night, so that she can sleep well. Code(s): G47.33 - Obstructive sleep apnea (adult) (pediatric); Z99.89 - Dependence on other enabling machines and devices Category: Medical Plan: ADVISED TO HAVE HER USE CPAP WITH FULLFACE MASK EVERY NIGHT. CPAP FOLLOW-UP IS BEING PROVIDED BY [facility]. Coding Level of Care Code Est Pt Level 3 (84503) Diagnoses Down syndrome Q90.9 G tube feedings Z93.1 Aspiration pneumonia, unspecified aspiration pneumonia type, unspecified laterality, unspecified part of lung J69.0 Aspiration pneumonia type: unspecified Laterality: unspecified laterality Lung location: unspecified part of lung LEONIE on CPAP G47.33; Z99.89
== END 2024-12-12 16:19 | disposition home or self-care (01) ==
LOC: HO.HPS 15:51
PROVIDERS: PCP Internal Medicine; Visit Provider Internal Medicine
DX: Q90.9 Down syndrome, unspecified (principal); Z93.1 Gastrostomy status; J69.0 Pneumonitis due to inhalation of food and vomit; G47.33 Obstructive sleep apnea (adult) (pediatric); Z99.89 Dependence on other enabling machines and devices
CPT/HCPCS: 99213

== ENCOUNTER → 2024-12-12 15:50 | Outpatient (BNVA) | payer OTHER, SELFPAY | PROVIDERS: PCP Internal Medicine; Visit Provider Internal Medicine | DX: J98.4 Other disorders of lung (principal); Q90.9 Down syndrome, unspecified; Z93.1 Gastrostomy status; G47.33 Obstructive sleep apnea (adult) (pediatric); Z99.89 Dependence on other enabling machines and devices | CPT/HCPCS: 99212 ==

== ENCOUNTER 2025-02-28 15:47 | Outpatient (AMB) | payer OTHER, SELFPAY ==
--- OUTSIDE RECORDS SUMMARY | 2023-10-25 10:30 | XMS_ITS ---
Author Organization [facility] Address [address] [place] [phone] Care Team Providers Care Lithographer Apprentice Name Role Phone Lane Estevez MD Primary Care Provider Michael Jaime Jr Unavailable REASON FOR VISIT g tube replacement Encounters Encounter Location Date Provider Diagnosis [facility] [place] [address] [place], [place] [phone] 10/25/2023 Michael Sevilla Jr Plan Of Treatment No Information Progress Notes * ALEXANDRIA BRISCOEB:1960 (64 yo F)Acc No.[id number]:10/25/2023 Progress Notes Patient: EDEN GAGE Provider: Billy Sevilla MD :1960 A ge:63 Y S ex:Female Date:10/25/2023 Address:[address] [place], [place] [phone] Pcp:Lane Estevez MD Subjective: * Chief Complaints: [...] 0 10/25/2023 Generated for Jaylon marquez/Alis/eTransmitting on: 0 02/28/2025 04:08 PM EDT
--- OUTSIDE RECORDS SUMMARY | 2023-10-31 09:00 | XMS_ITS ---
Author Organization [facility] Address [address] [place] [phone] Care Team Providers Care Community Health Worker Name Role Phone Lane Estevez MD Primary Care Provider Michael Jaime Jr Unavailable [phone] REASON FOR VISIT g tube replacement Encounters Encounter Location Date Provider Diagnosis [facility] Outpatient [address] [place], [place] [phone] 10/31/2023 Michael Sevilla Jr Dysphagia R13.10 Assessments Encounter Date Diagnosis (ICD Code) Assessment Notes Treatment Notes Treatment Clinical Notes Section Notes 10/31/2023 Dysphagia (ICD-10 - R13.10) Plan Of Treatment No Information Progress Notes * ALEXANDRIA BRISCOEB:1960 (64 yo F)Acc No.[id number]:10/31/2023 Progress Notes Patient: EDEN GAGE Provider: Billy Sevilla MD :1960 A ge:63 Y S ex:Female Date:10/31/2023 Address:[address] [place], [place] [phone] Pcp:Lane Estevez MD Subjective: * Chief Complaints: * 1 . G tube replacement. * Medical History: Objective: * Vitals: Assessment: * Assessment: 1. D ysphagia - R13.10 (Primary) Plan: * Treatment: * Procedure Codes: 4 3763 percutaneous gastrostomy tube placement including removal without imaging or endoscopic guidance not requiring revision of the gastrostomy * * The named appointment provid er may or may not be the originator of this progress note, and it is not deemed complete until electronically signed by the appointment provider. Sign off status: Pending * Provider: Billy Sevilla MD Date: 0 10/31/2023 Generated for Jaylon marquez/Alis/Clarkitting on: 0 02/28/2025 04:07 PM EDT
--- OUTSIDE RECORDS SUMMARY | 2024-02-21 09:40 | XMS_ITS ---
Author Organization [facility] Address [address] [place] [address] Care Team Providers Care Biological Inspector Name Role Phone Lane Estevez MD Primary Care Provider Michael Jaime Jr Unavailable REASON FOR VISIT g tube change in minor surgery Encounters Encounter Location Date Provider Diagnosis [facility] [place] Out[place] [address], [place] [phone] 02/21/2024 Michael Sevilla Jr Dysphagia R13.10 and Gastrostomy malfunction K94.23 Assessments Encounter Date Diagnosis (ICD Code) Assessment Notes Treatment Notes Treatment Clinical Notes Section Notes 02/21/2024 Dysphagia (ICD-10 - R13.10) 02/21/2024 Gastrostomy malfunction (ICD-10 - K94.23) Plan Of Treatment No Information Progress Notes * KELLY BRISCOE:1960 (64 yo F)Acc No.[id number]:02/21/2024 Progress Notes Patient: EDEN GAGE Provider: Billy Sevilla MD :1960 A ge:63 Y S ex:Female Date:02/21/2024 Address:[address] [place], [place] [phone] Pcp:Lane Estevez MD Subjective: * Chief Complaints: [...] Pending * Provider: Billy Sevilla MD Date: 02/21/2024 Generated for Jaylon marquez/Alis/Vicky on: 02/28/2025 04:07 PM EDT
--- OUTSIDE RECORDS SUMMARY | 2024-02-27 12:00 | XMS_ITS ---
Author Organization [facility] Address [address] [place] [address] Care Team Providers Care Art Consultant Name Role Phone Lane Estevez Primary Care Provider Unavailabl Cory Schultz Unavailable [phone] Encounters Encounter Location Date Provider Diagnosis [facility] [address] [place] [address] 02/27/2024 Cory Huang Plan Of Treatment No Information Progress Notes * Ann Marie BRISCOE LDOB: (64 yo F)Acc No.[id number]:02/27/2024 Progress Note Patient: Ann Marie GAGE Provider: Michelle Huang DPM :1960 A ge:63 Y S ex:Female Date:02/27/2024 Address:[address] [place] [id number] Pcp:Lane Estevez Subjective: * Chief Complaints: * * Medical History: Objective: * Vitals: Assessment: Plan: * Treatment: * Images: * The named appointment provid er may or may not be the originator of this progress note, and it is not deemed complete until electronically signed by the appointment provider. Sign off status: Pending * Provider: Michelle Huang DPM Date: 02/27/2024 Generated for Printi ng/Faxing/eTransmitting on: 02/28/2025 04:07 PM EDT
--- OUTSIDE RECORDS SUMMARY | 2024-07-16 11:45 | XMS_ITS ---
Author Organization [facility] Address [address] [place] [address] Care Team Providers Care Repair Operator Name Role Phone Lane Estevez Primary Care Provider Cory Paulino Unavailable [phone] Bernadine Alaniz Unavailable [phone] Allergies Allergen (clinical drug ingredient) Drug/Non Drug Allergy documented on EMR Reaction Allergy Type Onset Date Status amoxicillin Amoxicillin rash/itchy Drug Allergy Ac tive lorazepam Ativan Unknown Drug Allergy Active sulfamethoxazole / trimethoprim Bactrim hives Drug Allergy Active REASON FOR VISIT Dr De La Cruz Encounters Encounter Location Date Provider Diagnosis [address] [address] 07/16/2024 Bernadine Alaniz Plan Of Treatment No Information Progress Notes * Ann Marie BRISCOE LDOB: (64 yo F)Acc No.[id number]:07/16/2024 Progress Notes Patient: Ann Marie GAGE Provider: Calin Alaniz DPM :1960 A ge:63 Y S ex:Female Date:07/16/2024 Address:[address] [place] [id number] Pcp:Lane Estevez Subjective: * Chief Complaints: * [...] 0 07/16/2024 Generated for Jaylon marquez/Alis/Vicky on: 0 02/28/2025 04:07 PM EDT
--- OUTSIDE RECORDS SUMMARY | 2024-11-26 09:40 | XMS_ITS ---
Author Organization [facility] Address [address] [place] [phone] Care Team Providers Care Tooth Polisher Name Role Phone Lane Estevez MD Primary Care Provider Michael Jaime Jr Unavailable REASON FOR VISIT old faulty g tube Encounters Encounter Location Date Provider Diagnosis [facility] [place] [address], [place] [phone] 11/26/2024 Michael Sevilla Jr Dysphagia R13.10 and Gastrostomy malfunction K94.23 Assessments Encounter Date Diagnosis (ICD Code) Assessment Notes Treatment Notes Treatment Clinical Notes Section Notes 11/26/2024 Dysphagia (ICD-10 - R13.10) 11/26/2024 Gastrostomy malfunction (ICD-10 - K94.23) Plan Of Treatment No Information Progress Notes * ALEXANDRIA BRISCOEB:1960 (64 yo F)Acc No.[id number]:11/26/2024 Progress Notes Patient: EDEN GAGE Provider: Billy Sevilla MD :1960 A ge:64 Y S ex:Female Date:11/26/2024 Address:[address] [place], [place] [phone] Pcp:Lane Estevez MD Subjective: * Chief Complaints: * 1 . Old faulty g tube. * Medical History: Objective: * Vitals: Assessment: * Assessment: 1. D ysphagia - R13.10 (Primary) 2 . G astrostomy malfunction - K94.23 Plan: * Treatment: * Procedure Codes: 4 3762 percutaneous gastrostomy tube placement including removal without imaging or endoscopic guidance not requiring revision of the gastrostomy * * The named appointment provid er may or may not be the originator of this progress note, and it is not deemed complete until electronically signed by the appointment provider. Sign off status: Pending * Provider: Billy Sevilla MD Date: 11/26/2024 Generated for Jayoln marquez/Alis/Vicky on: 02/28/2025 04:07 PM EDT
[2025-02-28 15:50] VITALS: BP 110/62; PULSE 65; TEMP 36.2; O2SAT 100
--- NOTE | 2025-02-28 15:50 | MHC.PC.OV ---
Vital Signs 02/28/25 15:50 Height 5 ft 1 in BMI Reason not done Patient refused/unable BP 110/62 Blood Pressure Location Rt brachial Position Sitting Pulse 65 Pulse Source Pulse Oximeter Temp 97.1 F Temp Source Temporal Artery Scan Pulse Oximetry (%) 100 Oxygen Delivery Method Room Air Intake Visit Reasons: Down syndrome/hypothyroidism/epilepsy with Dr. Estevez Accompanied by: Sister Allergies fentanyl (FENTANYL) Allergy (Intermediate, Verified 02/28/25 15:55) UNKNOWN codeine (CODEINE) Allergy (Unknown, Verified 02/28/25 15:55) UNKNOWN lorazepam (From ATIVAN) Allergy (Unknown, Verified 02/28/25 15:55) UNKNOWN oxcarbazepine (OXCARBAZEPINE) Allergy (Unknown, Verified 02/28/25 15:55) UNKNOWN penicillin V Allergy (Unknown, Verified 02/28/25 15:55) Unknown Penicillins (PENICILLINS) Allergy (Unknown, Verified 02/28/25 15:55) DIFFICULTY BREATHING Sulfa (Sulfonamide Antibiotics) (SULFA (SULFONAMIDE ANTIBIOTICS)) Allergy (Unknown, Verified 02/28/25 15:55) DIFFICULTY BREATHING famotidine (From Pepcid) Adverse Reaction (Intermediate, Verified 02/28/25 15:55) diarrhea levofloxacin (From LEVAQUIN) Adverse Reaction (Intermediate, Verified 02/28/25 15:55) hallucinations doxycycline Adverse Reaction (Mild, Verified 02/28/25 15:55) Diarrhea Tobacco use date assessed: 02/28/25 Fall risk assessment: No Falls in past year Last assessed Fall Risk: 02/28/25 Dental Screening Dental Screen Date: 02/28/25 Did you have a dental visit in the last 12 months?: No Did you have a dental problem in the last 6 months where you did not have access to dental care?: No Was dental information given to patient?: Patient declined [facility] Medical History CHF (congestive heart failure) Physical deconditioning Tracheobronchitis G tube feedings Diastolic heart failure Pneumonia MSSA bacteremia Unspecified skin changes Seizure disorder Respiratory distress Aspiration into airway Dysphagia Dementia Toxic metabolic encephalopathy Epilepsy Hypoxemia Dysphagia causing pulmonary aspiration with swallowing LEONIE on CPAP Down syndrome Surgical History History of back surgery Social History (Reviewed 02/28/25 @ 15:55 by Nancy Jacobson [facility] [address]) Household Members: Family Household Members Other:: sister Housing: House Do you presently have visiting nurse or other home services: Yes Alcohol intake: never Comment: family member in room Patient Tobacco Use Status: Never used Tobacco e-Cigarette/Vaping Use: Never Used Second Hand Smoke Exposure: No Advance Directives Date on File: 06/18/23 service: No Current occupational status: disabled Cognitive needs: Yes (wheelchair) Hearing needs: No Vision needs: No Questionnaire PHQ-9 Over the last 2 weeks, how often have you been bothered by any of the following problems? 1. Little interest or pleasure in doing things: not at all 2. Feeling down, depressed, or hopeless: not at all 3. Trouble falling or staying asleep, or sleeping too much: not at all 4. Feeling tired or having little energy: not at all 5. Poor appetite or overeating: not at all 6. Feeling bad about yourself - or that you are a failure or have let yourself or your family down: not at all 7. Trouble concentrating on things, such as reading the newspaper or watching television: not at all 8. Moving or speaking so slowly that other people could have noticed. Or the opposite - being so fidgety or restless that you have been moving around a lot more than usual: not at all 9. Thoughts that you would be better off or of hurting yourself in some way: not at all Total score: 0 Source: Developed by Drs. Carlo Donaldson, Danielle Wallace, Eber Lindquist and colleagues, with an educational danna from [employer]. Thrive Questionnaire Date Thrive assessed: 02/21/25 I am a: Patient What is your living situation today?: I have a steady place to live Within the past 12 months, did the food you bought not last and you didn't have the money to get more?: Never true Within the past 12 months, did you worry whether your food would run out before you got money to buy more?: Never true Do you have trouble paying for medicines?: No Do you have trouble getting transportation to medical appointments?: Yes Do you have trouble paying your heating and electricity bill?: No Do you have trouble taking care of your child, family member or friend?: No Do you have trouble with day-to-day activities such as bathing, preparing meals, shopping, managing finances, etc.?: Yes Are you currently unemployed and looking for a job?: No Are you interested in more education?: No Please select the resources that you would like help with: Transportation and Daily support Currently or been in a relationship where the following occur: No concerns reported THRIVE Score: 1 AUDIT C Alcohol Use Questionnaire (AUDIT-C) 1. How often do you have a drink containing alcohol?: Never 3. How often do you have six or more drinks on one occasion?: Never Total Score: 0 ANIYAH-7 AMB Questionnaire ANIYAH-7 Date ANIYAH - 7 assessed: 07/12/24 Feeling nervous, anxious, or on edge: 0 = Not at all Not being able to stop or control worryin = Not at all Worrying too much about different things: 0 = Not at all Trouble relaxin = Not at all Being so restless that it is hard to sit still: 0 = Not at all Becoming easily annoyed or irritable: 0 = Not at all Feeling afraid as if something awful might happen: 0 = Not at all Total ANIYAH-7 score (0-4 normal; 5-9 mild; 10-14 moderate; 15-21 severe): 0 Source: Developed by Drs. Carlo Donaldson, Danielle Wallace, Eber Lindquist and colleagues, with an educational danna from [employer]. Physical exam (Primary Care) Vital Signs: Last Vital Signs Temp 97.1 F 02/28/25 15:50 Pulse 65 02/28/25 15:50 BP 110/62 02/28/25 15:50 Pulse Ox 100 02/28/25 15:50 Oxygen Delivery Method Room Air 02/28/25 15:50 Tobacco/Smoking Status: Tobacco use Status Tobacco use date assessed 02/28/25 02/28/25 15:58 Patient Tobacco Use Status Never used Tobacco 02/28/25 15:58 e-Cigarette/Vaping Use Never Used 02/28/25 15:58 PHQ-9: PHQ-9 Score PHQ-9: Total score 0 02/28/25 15:58 Thrive Assessment: Date of Thrive Assessment Date Thrive assessed 02/21/25 02/28/25 15:58 Currently or been in a relationship where the following occur: No concerns reported Const Other: Patient is wheelchair born. Unresponsive does open the eyes, but eye movement intermttent Resp Other: lung clear Effort & Inspection: normal respiratory effort Back/Spine/Pelvis Other: no movement , pulse good, bilatera arm, picture noted on the gluteal area with desquamation. abdomen with g tube Coding Level of Care Code Est Pt Level 4 (43240) Diagnoses Down syndrome Q90.9 Acquired hypothyroidism E03.9 Hypothyroidism type: acquired G tube feedings Z93.1 LEONIE on CPAP G47.33; Z99.89 Nonintractable epilepsy without status epilepticus, unspecified epilepsy type G40.909 Epilepsy type: unspecified Intractability: not intractable Status epilepticus: without status epilepticus Assessment & Plan Assessment & Plan (1) Down syndrome: Comment: TRISOMY 21 PATIENT HAS ADVANCED COGNITIVE IMPAIRMENT SECONDARY TO HER DOWN SYNDROME . SHE NEEDS FULL CARE 26/12 SHE REMAINS NONVERBAL, IN THE CHAIR TO BED. Code(s): Q90.9 - Down syndrome, unspecified Category: Medical Plan: Supportive treatment (2) Hypothyroid: Code(s): E03.9 - Hypothyroidism, unspecified Category: Medical Qualifiers: Hypothyroidism type: acquired Qualified Code(s): E03.9 - Hypothyroidism, unspecified Plan: Continue with thyroid medication November 2024 blood work (3) G tube feedings: Comment: PATIENT WAS HAVING RECURRENT ASPIRATION PNEUMONIA AND RESPIRATORY INFECTIONS DUE TO HER DIFFICULTY IN SWALLOWING. SINCE SHE HAS G-TUBE PLACE HE IS DOING VERY WELL AND HAS HAD NO ASPIRATION PNEUMONIA . TOLERATES INTERMITTENT FEEDINGS. Code(s): Z93.1 - Gastrostomy status Category: Medical Plan: Replacement under gastroenterology (4) LEONIE on CPAP: Comment: This patient has long-standing history of obstructive sleep apnea and the sister puts on the CPAP every night, so that she can sleep well. Code(s): G47.33 - Obstructive sleep apnea (adult) (pediatric); Z99.89 - Dependence on other enabling machines and devices Category: Medical Plan: Continue to use the CPAP more than 4 hours a night and benefits from this. (5) Epilepsy: Comment: Controlled with meds, follows up with Neurology. Code(s): G40.909 - Epilepsy, unspecified, not intractable, without status epilepticus Category: Medical Qualifiers: Epilepsy type: unspecified Intractability: not intractable Status epilepticus: without status epilepticus Qualified Code(s): G40.909 - Epilepsy, unspecified, not intractable, without status epilepticus Plan: Patient has seen Neurology and had some adjustment with seizure medication. Plan History of Present Illness The patient is a 64-year-old female presenting for a follow-up visit. She has a history of Down syndrome and is dependent on a gastrostomy tube for nutrition. She has experienced aspiration pneumonia in the past and has a pressure ulcer on her buttocks. The patient has a seizure disorder, for which she has been under neurological care since March 2016. She is currently on Keppra, lacosamide, and lamotrigine, with recent adjustments made to her lacosamide dosage. She has recurrent respiratory infections, typically managed with liquid azithromycin and upper airway suctioning. The patient uses a CPAP machine with a full face mask for sleep apnea. The patient has had issues with her gastrostomy tube malfunctioning and leaking, which required replacement by a block cutter. Her last blood work in November 2024 showed normal blood count, electrolytes, renal function, and liver function, but low vitamin D levels. She has a fungal infection in her toenails, which is being managed with antifungal treatment. Health Maintenance - CPAP usage for sleep apnea management - Regular blood work monitoring - Antifungal treatment for toenail infection Social History - Patient is wheelchair dependent and unresponsive, but opens eyes. - Exercises are performed daily to maintain joint mobility. Review of Systems - Neurological: Reports seizure activity managed with medication adjustments. - Respiratory: Reports recurrent respiratory infections managed with azithromycin and suctioning. - Dermatological: Reports pressure ulcer on buttocks. - Endocrine: Reports vitamin D deficiency. Physical Exam Results - Labs: Normal blood count, electrolytes, renal function, liver function; low vitamin D levels. Plan Patient was informed and verbally consented to the use of an ambient scribe for clinic note documentation during this visit. 1. Seizure Disorder The patient is currently on Keppra, lacosamide, and lamotrigine for seizure management, with recent adjustments made to the lacosamide dosage to better control seizure activity. Continued monitoring of medication levels and seizure frequency is recommended. 2. Gastrostomy Tube Malfunction The patient has experienced gastrostomy tube malfunction and leakage, which was addressed by replacement performed by a block cutter. Regular monitoring and timely replacement of the tube are advised to prevent complications. 3. Recurrent Respiratory Infections The patient experiences recurrent respiratory infections, managed with liquid azithromycin and upper airway suctioning. Continued use of these interventions is recommended to manage symptoms and prevent complications. 4. Sleep Apnea The patient uses a CPAP machine with a full face mask for the management of sleep apnea. Continued adherence to CPAP therapy is advised to improve sleep quality and reduce apnea episodes. 5. Vitamin D Deficiency The patient has low vitamin D levels, as indicated by recent blood work. Vitamin D supplementation is recommended to address this deficiency. 6. Fungal Infection Of Toenails The patient has a fungal infection in her toenails, which is being managed with antifungal treatment. Continued use of antifungal medication is advised to resolve the infection. Discussion Notes Patient Instructions
--- OUTSIDE RECORDS SUMMARY | 2025-02-28 16:07 | XMS_ITS | Encounter Summary ---
Author Organization [facility] Address [address] [place] [address] Encounters * CPT with Medical instED at [employer] on 2025-02-02 { reasonForRequest : Patient wears a Cpap, - and now the rig caused an injury on thepatient head - wound and blood in the hair. , patientReports : , den ies :[ Valentin Flash, circumferential valentin , Valentin reported with black tissue to the area , Open skin area after a fall with uncontrolled bleeding , Abscess/ infection with streaking noted, presence of fever or without ], chiefComplaints :"Wound Care , pmh : Epilepsy/Seizure Disorder, Sleep Apnea, Dementia (e.g., Alzheimer's Disease) , allergies : Bactrim, Penicillins, Doxycycline , ot herAllergies :null, painAssessment : , visitOutcome : &quot ;, additionalComments : 64 y.o female complains of Wound Care\n\nPatients sister/customer care coordinator calling in to place a referral.\nPatients sister was brusing patients hair, comb became stuck, and she then found a scab/wound on the top of patients scalp.\nShe is unsure if it is from hair clips she puts in at night, or pressure from the strap of her CPAP, as the head portion rest on the same area.\nPatient reports it is bloody, she has applied neosporin\nShe reports there is no s/sx of infection, but concerned for infection\nSister would like to area evaluated.\n\nI provided information on the mobile health provider response time and advised the patient and/or caregiver to monitor reported signs and symptoms. I discussed the warning signs of when to seek emergency care. } Dispatched for a 64yo female with wound to head. Sister states pt wears cpap at night and believes the strap caused a wound to the top of her head. Sister states she found the wound yesterday and just wants to make sure it is not infected. Sister denies any fevers, swelling, discharge or redness around the area. C consulted. Sister informed to use non-adherent gaze to keep the strap off the wound at night. Sister informed of red flags. Pt found in wheel chair non verbal at baseline. Airway open and lung sounds clear. 1 x1 wound on the top of head. Wound dry, no discharge or redness. Wound has scab. Assisted sister with applying non adherent gaze to cpap strap to keep pressure off effected area. Informed sister of cpap hair caps for future use. ORAL_MEDICATION, WOUND_CARE Written by Medical instED on 2025-02-02
--- OUTSIDE RECORDS SUMMARY | 2025-02-28 16:08 | XMS_ITS | Patient Health Record ---
Author Organization [facility] Address [address] [place] [address] Care Team Providers Care Bridge Club Manager Name Role Phone Lane Estevez Primary Care Provider Cory Paulino Unavailable [phone] Bernadine Alaniz Unavailable [phone] Allergies Allergen (clinical drug ingredient) Drug/Non Drug Allergy documented on EMR Reaction Allergy Type Onset Date Status amoxicillin Amoxicillin rash/itchy Drug Allergy Ac tive lorazepam Ativan Unknown Drug Allergy Active sulfamethoxazole / trimethoprim Bactrim hives Drug Allergy Active Reason For Referral No Information Medications Medication SIG (Take, Route, Frequency, Duration) Notes Start Date End Date Status Synthroid 88 MCG 1 tablet every morning on an empty stomach Orally Once a day Active Keppra 2.5 mg 8.5mg Active Vimpat 10 MG/ML Orally 8 ML at night Active Donepezil HCl 10 MG 1 tablet at bedtime Orally Once a day Active Zithromax Z-Luis Not- Taking Sertraline HCl Activ e Tylenol regular strength twice Active Memantine HCl 2 MG/ML TAKE 2.5 ML BY MOUTH DAILY Oral; Duration: 30 Not-Taking Albuterol Active Amitriptyline HCl 100 MG Orally Once a day Active Ipratropium [place] 2 sprays in each nostril as needed Active First-Omeprazole Not -Taking Mucinex 20mL BID Active Doxycycline Monohydrate 100 MG 1 capsule Orally Once a day; Duration: 5 days 01/04/2022 Not-Taking Immunizations Vaccine Route Administration Date Status Comme nts Influenza Unknown 03/05/2024 Administered COVID-19 Moderna Vaccine Unknown 09/01/2020 Administere d 1st 08/04/2020 Social History Tobacco Use: Social History Observation Description Date Details (start date - stop date) Never Smoker NA - NA Tobacco use other than smoking: Question Answer Notes Are you an other tobacco user? No Tobacco Control (Standard) Question Answer Notes Tobacco use: Nonsmoker Additional Findings: Tobacco non-user Current no nsmoker AUDIT-C (Standard) Question Answer Notes Did you have a drink containing alcohol in the p ast year? No Points 0 Interpretation Negative Problems Problem Type SNOMED Code ICD Code Onset Dates Problem Status W/U Status Risk Notes Problem Bilateral atherosclerosis of arteries of lower limbs (disorder) ([id number] ) Atherosclerosis of [place] artery of both lower extremities, with unspecified presence of clinical manifestation (I70.203) Active confirmed Vital Signs Blood pressure diastolic 65 mm Hg 12/17/2024 Height 4ft 6in in 12/17/2024 Blood pressure systolic 128 mm Hg 12/17/2024 Weight 150 lbs 12/17/2024 BMI 36.16 kg/m2 12/17/2024 Procedures Procedure Date Ordered Date Performed Result Body Sit e 42990-WGKGOCI NAIL, 6 OR MORE 05/31/2024 N/A 75545-Lltojnfa Plate 05/31/2024 N/A 67814-Htqdzpse Plate Each Additional 05/31/2024 N/A 65762-MIFX SKIN LESIONS, OVER 4 05/31/2024 N/A 12162- Debride <25 sq cm 07/31/2024 N/A 85152-BQUPEPD NAIL, 6 OR MORE 12/17/2024 N/A Encounters Encounter Location Date [facility] [address] 05/31/2024 Bernadine Alaniz Atherosclerosis of [place] artery of both lower extremities, with unspecified presence of clinical manifestation I70.203 ; Tinea unguium B35.1 ; Pain in right toe(s) M79.674 ; Pain in left toe(s) M79.675 and Ingrowing nail L60.[address] [address] 07/31/2024 Cory Reina Skin ulcer of toe of right foot, limited to breakdown of skin L97.511 [facility] [place] [address] 12/17/2024 Cory Huang Atherosclerosis of [place] artery of both lower extremities, with unspecified presence of clinical manifestation I70.203 ; Tinea unguium B35.1 ; Pain in right toe(s) M79.674 and Pain in left toe(s) M79.[address] [address] 05/27/2024 Cory [facility] [address] 12/17/2024 Cory Huang Assessments Encounter Date Diagnosis (ICD Code) Assessment Notes Treatment Notes Treatment Clinical Notes Section Notes 05/31/2024 Tinea unguium (ICD-10 - B35.1) 05/31/2024 Atherosclerosis of [place] artery of both lower extremities, with unspecified presence of clinical manifestation (ICD-10 - I70.203) 12/17/2024 Tinea unguium (ICD-10 - B35.1) 12/17/2024 Atherosclerosis of [place] artery of both lower extremities, with unspecified presence of clinical manifestation (ICD-10 - I70.203) 12/17/2024 Pain in right toe(s) (ICD-10 - M79.674) 07/31/2024 Skin ulcer of toe of right foot, limited to breakdown of skin (ICD-10 - L97.511) Patient Educated with: WOUND CARE INSTRUCTIONS. pdf (WOUND CARE INSTRUCTIONS. pdf) 05/31/2024 Pain in right toe(s) (ICD-10 - M79.674) 05/31/2024 Pain in left toe(s) (ICD-10 - M79.675) 12/17/2024 Pain in left toe(s) (ICD-10 - M79.675) 05/31/2024 Ingrowing nail (ICD-10 - L60.0) 07/31/2024 Other Plan Of Treatment Pending Test Test Name Order Date X ray : Foot, left 2V 11/17/2020 *Wound Culture 05/02/2017 25038-ZAUOKTW NAIL, 6 OR MORE 12/25/2013 05928-PSYVDUY NAIL, 6 OR MORE 09/08/2014 85086-PKVQBMR NAIL, 6 OR MORE 12/01/2014 83592-IOOUSVP NAIL, 6 OR MORE 07/21/2017 95812-CZFKLAX NAIL, 6 OR MORE 10/27/2017 29649-NZFPFYB NAIL, 6 OR MORE 01/05/2018 76398-AUESNKL NAIL, 6 OR MORE 09/07/2011 39759-HEWEOJT NAIL, 6 OR MORE 11/23/2011 34837-RDOUOWZ NAIL, 6 OR MORE 02/27/2012 86280-MCXAFHG NAIL, 6 OR MORE 05/21/2012 60327-MMTAQLY NAIL, 6 OR MORE 03/14/2013 62527-EGZDGPM NAIL, 6 OR MORE 06/17/2013 63338-XCAQADG NAIL, 6 OR MORE 09/26/2013 94493-TWOFFFF NAIL, 6 OR MORE 03/03/2014 79945-NHWRNWD NAIL, 6 OR MORE 03/09/2018 43931-VCQODAH NAIL, 6 OR MORE 11/25/2022 82763-GYUUGKB NAIL, 6 OR MORE 11/28/2023 25935-LOCGCBN NAIL, 6 OR MORE 05/31/2024 94375-ACFDEGC NAIL, 6 OR MORE 12/17/2024 88831-Ujji Destruction, 1-14 03/03/2014 12099-Djqz Destruction, 1-14 09/26/2013 06367-Vchg Destruction, 1-14 03/14/2013 45164-Sbic Destruction, 1-14 06/17/2013 05457-Guid Destruction, 1-14 05/21/2012 38058-Rpqy Destruction, 1-14 02/27/2012 88450-Uybh Destruction, 1-14 11/23/2011 55142-Ysvp Destruction, 1-14 09/07/2011 43899-Rgcy Destruction, 1-14 09/08/2014 60167-Duzs Destruction, 1-14 12/25/2013 38120-Krrplced Plate 05/31/2024 15944-Gdmgjzis Plate Each Additional 40369- Debride <25 sq cm 07/31/2024 84910- Debride <25 sq cm 07/21/2017 38573- Debride <25 sq cm 05/02/2017 93906- Debride <25 sq cm 05/10/2017 63110- Debride <25 sq cm 05/19/2017 82271- Debride <25 sq cm 06/02/2017 14793 I&D ABSCESS- SIMPLE,SINGLE 023 58039-HAKJ SKIN LESIONS, OVER 4 11/28/19 24 07723-KQXR SKIN LESIONS, OVER 4 05/31/20 24 13797-GZZG SKIN LESIONS, OVER 4 05/21/20 14 54712-XUES SKIN LESIONS, 2 TO 4 03/09/20 18 61771-TSRL SKIN LESIONS, 2 TO 4 01/06/20 18 73100-ESSC SKIN LESIONS, 2 TO 4 10/28/19 18 59304-TLCO SKIN LESIONS, 2 TO 4 12/02/19 15 54387-KYWZ SKIN LESION 07/21/2017 02754-HLLQ NAIL(S) 12/01/2014 X1078-MIVTIBKZ DYSTROPHIC NAILS ANY # 14364-XRRRUQNA OF HEMATOMA/FLUID 022 Insurance Providers Payer Name Payer Address Payer Phone Subscriber Number Group Number Insured Name Patient Relationship to Insured Coverage Start Date Coverage End Date [facility] [employer] Claims [address] [place] [id number] Ann Marie Gold Self - patient is the insured Medical (General) History Medical History History ICD Code thyroid disorder chicken pox seizure disorder Surgical History Surgery Date(Month/Year) Hospitalization History Reason Date(Month/Year) [facility] - infection coming -wet on the outside 07/29 [facility] 06/28 [facility] [place]/pneumonia 3days 7-02/24 [facility] for seizures for ab out six weeks also to on license of [facility] [place] 02/13/2017
--- OUTSIDE RECORDS SUMMARY | 2025-02-28 16:08 | XMS_ITS | Continuity of Care Document ---
Author Name [facility], Medical Address [address] [place] [address] Organization Unknown Address [address] [place] [address] Medications No known medications Problems No known problems
--- OUTSIDE RECORDS SUMMARY | 2025-02-28 16:08 | XMS_ITS | Patient Health Record ---
Author Organization [facility] Address [address] [place] [address] Care Team Providers Care Erp Implementation Consultant Name Role Phone Lane Estevez MD Primary Care Provider Michael Jaime Jr Unavailable [phone] Reason For Referral No Information Problems Problem Type SNOMED Code ICD Code Onset Dates Problem Status W/U Status Risk Notes Problem Dysphagia (77828187) Dysphagia (R13.10) Active confirmed Problem 41162185 Dysphagia, unspecified type (R13.10) Active confirmed Problem 344655233 Malfunction of gastrostomy tube (K94.23) Active confirmed Encounters Encounter Location Date Provider Diagnosis [facility] Outpatient [address] [place] [id number] 11/26/2024 Michael Sevilla Jr Dysphagia R13.10 and Gastrostomy malfunction K94.23 [facility] [address] [place] [address] 03/27/2024 Michael Sevilla Jr [facility] [address] [place] [address] 06/28/2024 Michael Sevilla Jr [facility] [address] [place] [address] 08/08/2024 Michael Sevilla Jr [facility] [address] [place] [address] 11/06/2024 Michael Sevilla Jr Assessments Encounter Date Diagnosis (ICD Code) Assessment Notes Treatment Notes Treatment Clinical Notes Section Notes 11/26/2024 Gastrostomy malfunction (ICD-10 - K94.23) 11/26/2024 Dysphagia (ICD-10 - R13.10) Plan Of Treatment No Information Insurance Providers Payer Name Payer Address Payer Phone Subscriber Number Group Number Insured Name Patient Relationship to Insured Coverage Start Date Coverage End Date [facility] [address] Attn Claims [place] [id number] EDEN BRISCOE Self - patient is the insured
== END 2025-02-28 16:41 | disposition home or self-care (01) ==
LOC: HO.HMCH 15:48
PROVIDERS: PCP Internal Medicine; Visit Provider Internal Medicine
DX: G40.909 Epilepsy, unspecified, not intractable, without status epilepticus (principal); Z93.1 Gastrostomy status; Q90.9 Down syndrome, unspecified; E03.9 Hypothyroidism, unspecified; G47.33 Obstructive sleep apnea (adult) (pediatric); Z99.89 Dependence on other enabling machines and devices

== ENCOUNTER → 2025-02-28 15:47 | Outpatient (BNVA) | payer OTHER, SELFPAY | PROVIDERS: PCP Internal Medicine; Visit Provider Internal Medicine | DX: G47.33 Obstructive sleep apnea (adult) (pediatric) (principal); Q90.9 Down syndrome, unspecified; E03.9 Hypothyroidism, unspecified; G40.909 Epilepsy, unspecified, not intractable, without status epilepticus; E55.9 Vitamin D deficiency, unspecified; B35.1 Tinea unguium; Z93.1 Gastrostomy status; Z99.89 Dependence on other enabling machines and devices | CPT/HCPCS: 96127; 99212 ==

== ENCOUNTER 2025-03-31 17:52 | Outpatient (REF) | payer OTHER, SELFPAY ==
--- OUTSIDE RECORDS SUMMARY | 2023-10-25 10:30 | XMS_ITS ---
Author Organization [facility] Address [address] [place] [phone] Care Team Providers Care Handyman Name Role Phone Lane Estevez MD Primary Care Provider Michael Jaime Jr Unavailable REASON FOR VISIT g tube replacement Encounters Encounter Location Date Provider Diagnosis [facility] Outpatient [address] [place], [place] [phone] 10/25/2023 Michael Sevilla Jr Plan Of Treatment No Information Progress Notes * ALEXANDRIA BRISCOEB:1960 (64 yo F)Acc No.[id number]:10/25/2023 Progress Notes Patient: EDEN GAGE Provider: Billy Sevilla MD :1960 A ge:63 Y S ex:Female Date:10/25/2023 Address:[address] [place], [place] [phone] Pcp:Lane Estevez MD Subjective: * Chief Complaints: * 1 . G tube replacement. * Medical History: Objective: * Vitals: Assessment: Plan: * Treatment: * * The named appointment provid er may or may not be the originator of this progress note, and it is not deemed complete until electronically signed by the appointment provider. Sign off status: Pending * Provider: Billy Sevilla MD Date: 0 10/25/2023 Generated for Jaylon marquez/Alis/eTransmitting on: 07:28 PM EDT
--- OUTSIDE RECORDS SUMMARY | 2023-10-31 09:00 | XMS_ITS ---
Author Organization [facility] Address [address] [place] [phone] Care Team Providers Care Newspaper Editor Name Role Phone Lane Estevez MD Primary Care Provider Michael Jaime Jr Unavailable [phone] REASON FOR VISIT g tube replacement Encounters Encounter Location Date Provider Diagnosis [facility] Outpatient [address] [place], [place] [phone] 10/31/2023 Michael Sevilla Jr Dysphagia R13.10 Assessments Encounter Date Diagnosis (ICD Code) Assessment Notes Treatment Notes Treatment Clinical Notes Section Notes 10/31/2023 Dysphagia (ICD-10 - R13.10) Plan Of Treatment No Information Progress Notes * ALEXANDRIA BRISCOEB:1960 (64 yo F)Acc No.[id number]:10/31/2023 Progress Notes Patient: EDEN GAGE Provider: Billy Sevilla MD :1960 A ge:63 Y S ex:Female Date:10/31/2023 Address:[address] [place], [place] [phone] Pcp:Lane Estevez MD Subjective: * Chief Complaints: [...] 0 10/31/2023 Generated for Jaylon marquez/Alis/Clarkitting on: 1 07:27 PM EDT
--- OUTSIDE RECORDS SUMMARY | 2024-02-21 09:40 | XMS_ITS ---
Author Organization [facility] Address [address] [place] [address] Care Team Providers Care Photoengraving Etcher Name Role Phone Lane Estevez MD Primary Care Provider Michael Jaime Jr Unavailable REASON FOR VISIT g tube change in minor surgery Encounters Encounter Location Date Provider Diagnosis [facility] Outpatient [address], [place] [id number] 02/21/2024 Michael Sevilla Jr Dysphagia R13.10 and Gastrostomy malfunction K94.23 Assessments Encounter Date Diagnosis (ICD Code) Assessment Notes Treatment Notes Treatment Clinical Notes Section Notes 02/21/2024 Dysphagia (ICD-10 - R13.10) 02/21/2024 Gastrostomy malfunction (ICD-10 - K94.23) Plan Of Treatment No Information Progress Notes * KELLY BRISCOE:1960 (64 yo F)Acc No.[id number]:02/21/2024 Progress Notes Patient: EDEN GAGE Provider: Billy Sevilla MD :1960 A ge:63 Y S ex:Female Date:02/21/2024 Address:[address] [place], [place] [id number] Pcp:Lane Estevez MD Subjective: * Chief Complaints: * 1 . G tube change in minor surgery. * Medical History: Objective: * Vitals: Assessment: * Assessment: 1. D ysphagia - R13.10 (Primary) 2 . G astrostomy malfunction - K94.23 Plan: * Treatment: * Procedure Codes: 4 3761 REPOSITION GASTROSTOMY TUBE * * The named appointment provid er may or may not be the originator of this progress note, and it is not deemed complete until electronically signed by the appointment provider. Sign off status: Pending * Provider: Billy Sevilla MD Date: 0 02/21/2024 Generated for Jaylon marquez/Alis/Vicky on: 1 07:28 PM EDT
--- OUTSIDE RECORDS SUMMARY | 2024-02-27 12:00 | XMS_ITS ---
Author Organization [facility] Address [address] [place] [address] Care Team Providers Care Obstetrics/Gynecology Nurse Name Role Phone Lane Estevez Primary Care Provider Unavailabl Cory Schultz Unavailable [phone] Encounters Encounter Location Date Provider Diagnosis [facility] [address] [place] [address] 02/27/2024 Cory Huang Plan Of Treatment No Information Progress Notes * Ann Marie BRISCOE LDOB: (64 yo F)Acc No.[id number]:02/27/2024 Progress Note Patient: Ann Marie GAGE Provider: Michelle Huang DPM :1960 A ge:63 Y S ex:Female Date:02/27/2024 Address:[address] [place] [address], [id number] Pcp:Lane Estevez Subjective: * Chief Complaints: * * Medical History: Objective: * Vitals: Assessment: Plan: * Treatment: * Images: * The named appointment provid er may or may not be the originator of this progress note, and it is not deemed complete until electronically signed by the appointment provider. Sign off status: Pending * Provider: Michelle Huang DPM Date: 0 02/27/2024 Generated for Printi ng/Faxing/eTransmitting on: 07:27 PM EDT
--- OUTSIDE RECORDS SUMMARY | 2024-07-16 11:45 | XMS_ITS ---
Author Organization [facility] Address [address] [place] [address] Care Team Providers Care Key Bed Installer Name Role Phone Lane Estevez Primary Care Provider Cory Paulino Unavailable [phone] Bernadien Alaniz Unavailable [phone] Allergies Allergen (clinical drug ingredient) Drug/Non Drug Allergy documented on EMR Reaction Allergy Type Onset Date Status amoxicillin Amoxicillin rash/itchy Drug Allergy Ac tive lorazepam Ativan Unknown Drug Allergy Active sulfamethoxazole / trimethoprim Bactrim hives Drug Allergy Active REASON FOR VISIT Dr De La Cruz Encounters Encounter Location Date Provider Diagnosis [address] [address] 07/16/2024 Bernadine Alaniz Plan Of Treatment No Information Progress Notes * Ann Marie BRISCOE LDOB: (64 yo F)Acc No.[id number]:07/16/2024 Progress Notes Patient: Ann Marie GAGE Provider: Calin Alaniz DPM :1960 A ge:63 Y S ex:Female Date:07/16/2024 Address:[address] [place] [id number] Pcp:Lane Estevez Subjective: * Chief Complaints: * [address] Dr De La Cruz. * Medical History: T hyroid disorder, Chicken pox, Seizure disorder. * Allergies: A tivan, Bactrim: hives, Amoxicillin: rash/itchy. Objective: * Vitals: Assessment: Plan: * Treatment: * Images: * The named appointment provid er may or may not be the originator of this progress note, and it is not deemed complete until electronically signed by the appointment provider. Sign off status: Pending * Provider: Calin Alaniz DPM Date: 0 07/16/2024 Generated for Jaylon marquez/Alis/Vicky on: 1 07:27 PM EDT
--- OUTSIDE RECORDS SUMMARY | 2024-11-26 09:40 | XMS_ITS ---
Author Organization [facility] Address [address] [place] [phone] Care Team Providers Care Lumber Driver Name Role Phone Lane Estevez MD Primary Care Provider Michael Jaime Jr Unavailable [phone] REASON FOR VISIT old faulty g tube Encounters Encounter Location Date Provider Diagnosis [facility] [place] [address] [place], [place] [phone] 11/26/2024 Michael Sevilla Jr Dysphagia R13.10 and Gastrostomy malfunction K94.23 Assessments Encounter Date Diagnosis (ICD Code) Assessment Notes Treatment Notes Treatment Clinical Notes Section Notes 11/26/2024 Dysphagia (ICD-10 - R13.10) 11/26/2024 Gastrostomy malfunction (ICD-10 - K94.23) Plan Of Treatment No Information Progress Notes * ALEXANDRIA BRISCOEB:1960 (64 yo F)Acc No.[id number]:11/26/2024 Progress Notes Patient: EDEN GAGE Provider: Billy Sevilla MD :1960 A ge:64 Y S ex:Female Date:11/26/2024 Address:[address] [place], [place] [phone] Pcp:Lane Estevez MD Subjective: * Chief Complaints: [...] * Provider: Billy Sevilla MD Date: 0 11/26/2024 Generated for Jaylon marquez/Alis/Vicky on: 07:27 PM EDT
--- OUTSIDE RECORDS SUMMARY | 2025-03-31 19:27 | XMS_ITS | Data Portability ---
Author Organization [place] [facility] Address [address] [place] [address] Care Team Providers Care Jewelry Manager Name Role Phone OG MESA Primary Care Provider [phone] APARNA GALLOWAY OTHER SHANIA MUNOZ OTHER Assessment [...] with her sister who is the primary patient care. Sister provided history but was wandering and [...] a 59-year-old female that is [facility] but new to this provider. She [...] X which is the same image accompanied [facility] uses. The patient's sister contacted [facility] hoping that the provider responding today would initiate treatment based off of the chest x-ray ordered by PCP. She reports her sister has been having a wet cough since Monday. Exam: On exam patient is awake and alert, afebrile and hemodynamically stable. Oxygen level of 98% on room air. She had no increased worker breathing, she did not cough at all while [facility] was on seen. She overall looks fairly well. DDx considered, but not limited to:Pneumonia considered, [facility] was unable to view any of the [...] sister but it would be inappropriate poor [facility] to initiate treatment without having the full [...] today. Time On Scene with Patient: 00:39:39 [email or web address] Not available 01/01/2020 15:54:46 Plan of Treatment Reminders Order Date Submit Date Provider Last Modified By Organization Details Last Modified Time Details Appointments None recorded. Lab CBC w/ auto diff - [facility] [address] [place] [facility] (Centralized Electronic Ordering - All Locations), Patient Can Go To The Location Of Their Choice, [id number] 0 23:59:15 rapid flu (A+B) 2019 020 veronica [facility], [address] [place] [address], [address], 0 14:29:04 CBC w/ auto diff [facility] 020 [place] [facility] (Centralized Electronic Ordering - All Locations), Patient Can Go To The Location Of Their Choice, [address] 0 15:56:38 BMP + ionized calcium, serum or plasma 2019 020 [place] [facility] (Centralized Electronic Ordering - All Locations), Patient Can Go To The Location Of Their Choice, 0 15:56:38 Referral None recorded. Procedures None recorded. Surgeries None recorded. Imaging XR, chest, 2 view - [facility] 2018 019 [facility] ([facility]), [address], [place], [address], 9 11:58:18 Medication Orders doxycycli ne hyclate 100 mg capsule 2018 019 veronica [id number], [address] [place], [address], 0 13:49:50 Patient TargetsNo targets recorded. Patient Instructions Encounter Date Encounter Id Patient Instructions Last Modified By Organization Details Last Modified Time 07/06/2019 [id number] Thank you for yo ur [facility]. We cannot always find the [...] in your condition between 8am-10pm, please call [facility] at [phone] to help navigate your care. Viral Illness [...] in your condition between 8am-10pm, please call [facility] at [phone] to help navigate your care. [email or web address] Not available 07/06/2019 14:24:57 01/01/2020 [id number] Inhaler Instructions Before use, you need to [...] is a steroid medicine (also called a g lucocorticoid or c orticosteroid ), rinse out your mouth, gargle, and [...] after cleaning actually helps it work better. [email or web address] Not available 01/01/2020 14:47:31 Reason for Referral None Reported. Results Created Date Observation Date Name Description Value Unit Range Abnormal Flag Note LastModifiedBy Organization Detail LastModifiedTime 07/06/19 20 07/06/2019 rapid flu (A+B) Flu A negati ve Not Available [facility] [address] [place], [address], 07/06/2019 13:51:02 07/06/1907/06/2019 rapid flu (A+B) Flu B negati ve Not Available [facility] [address], [place], [address], 07/06/2019 13:51:02 07/06/19 20 07/06/2019 rapid flu (A+B) Control Visual ized / Valid Not Available [facility] [address], [place], [address], 07/06/2019 13:51:02 01/01/2001/01/2020 CBC w/ auto diff [...] 01/01/2020 23:59:15 01/01/2001/01/2020 CBC w/ auto diff plt 228 K/mm3 (150-4 60) Not Available [facility] (Centralized Electronic Ordering - All Locations) Patient Can Go To The Location Of Their Choice, 01/01/2020 23:59:15 01/01/2001/01/2020 CBC w/ auto diff RDW-SD 59.7 fL [...] M.D. 2018 11:49: 23 AM EST. mirna [facility] [address], [place], [place], [address], 05/20/2019 08:39:27 Result Notes Documentation Provider Name [...] AM EST. YOBANI MCCORMICK [address], [place], [address], [place] [facility] 05/20/2019 08:39:27 Procedures Surgical History Date Name Laterality Status Provider Name and Address Organization Details Recorded Time 01/01/20 20 Venipuncture - DH completed VINH PLASENCIA NP [address], [place], [address], [place] [facility] 01/01/2020 15:50:17 Imaging Results None recorded. Procedure Notes None recorded. Medical Equipment None Reported. Allergies Allergen ID Allergen Name Allergen Category Reaction Reaction Severity Criticality Documentation Date Start Date Code Code System Note Provider Name and Address Organization Details Recorded Time 17016 Substance with sulfonami de structure and antibacte rial mechanism of action (substanc e) medicatio n Not available Not available Not available 05/16/2019 50606 8003 SNOMED DOMENICO LEWIS, PA [address], [place], [address], [place] [facility] 9 13:54:14 19004 Product containin g penicilli n (product) medicatio n Not available Not available Not available 05/16/2019 09301 8001 SNOMED DOMENICO LEWIS, PA [address], [place], [address], [place] [facility] 9 13:54:21 85384 Ativan medicatio n Not available Not available Not available 05/16/2019 60317 9 RxNorm DOMENICO LEWIS, PA [address], [place], [address], [place] [facility] 9 13:58:43 48511 codeine medicatio n Not available Not available Not available 05/16/2019 2670 RxNorm DOMENICO LEWIS, PA [address], [place], [address], [place] [facility] 9 13:58:52 10475 oxcarbaze pine medicatio n Not available Not available Not available 05/16/2019 45942 RxNorm DOMENICO LEWIS, PA [address], [place], [address], [place] [facility] 9 13:59:00 14330 fentanyl medicatio n Not available Not available Not available 05/16/2019 4337 RxNorm DOMENICO LEWIS, PA [address], [place], [address], [place] [facility] 9 [...] /min 16 /min 106/60 mm[Hg] Not Available [facility] 14:51:24 Date Recorded Body temperature Oxygen saturation Oxygen saturation in Arterial blood by Pulse oximetry Heart rate Respiratory rate Systolic And Diastolic Provider Name and Address Organization Details Last Updated DateTime 9 97.2 [degF] 100 % 100 % 60 /min 20 /min 102/58 mm[Hg] Not Available [facility] 9 14:08:13 Social History Question Answer Notes LastModified by Organizat ion Details LastModified Time Tobacco Smoking Status Never Smoker YOBANI MCCORMICK [address] [place], [address], [place] [facility] 05/16/2019 14:00:01 Do You [...] Diagnosis SNOMED-CT Code Diagnosis ICD10 Code Diagnosis IMO Codes Diagnosis Note [id number] YOBANI MCCORMICK [facility] [address] [place] [address] 05/16/2019 13:45:38 05/17/2019 09:35:15 Acute upper respiratory infection 03862264 J06.9 [id number] RODRIGUEZ BESS NP [facility] [address] [place] [address] 07/06/2019 13:43:58 07/08/2019 12:59:59 Seizure disorder 841962144 G40.909 Fatigue 18235439 R53.83 941988 VINH PLASENCIA NP [facility] [address] [place] [address] 01/01/2020 14:46:33 01/02/2020 14:46:11 Cough 78005372 R05 Bronchopneumonia 1215974 07 J18.0 Health Concerns Section Related Observation LastModified by Organization Detai ls LastModified Time None Recorded Concern Status LastModified by Organization Details LastModified Time None Recorded Advance Directives Directive Y: Payers Insurance Date Sequence Insurance Name Policy Number Policy [place] Covered Member ID [place] Member ID Guarantor Name 01/01/2020 2 [place] [facility] Ann Marie Gold [id number] Ann Marie Gold 05/16/2019 1 [place] B[place] [employer] Ann Marie Gold [id number] Ann Marie Gold 01/01/2020 1 MEDIC[place] [facility] Ann Marie Gold [id number] Ann Marie Gold 05/16/2019 1 *SELF PAY* Ann Marie Gold [id number] Ann Marie Gold Notes Date Note Type Note Provider Name and Address Organization Details Recorded Time 05/16/2019 text/html 58-year-old female, with Down syndrome, presents with her sister [...] be given. YOBANI MCCORMICK [address], [place], [address], [place] [facility] 05/16/2019 14:50:08 07/06/2019 text/html Pt was seen by on 05/16/19, pt was placed on Doxy. [...] again. RODRIGUEZ BESS NP [address], [place], [address], [place] [facility] 07/06/2019 15:17:24 01/01/2020 text/html General HPI Temp late - DHReported by Patient This is a 59-year-old female that [facility] new to this provider. She has a medical history significant for Down syndrome, seizures, dementia, hypothyroidism and chronic postnasal drip. Her sister [facility] because she wanted antibiotics for her [...] her with any further antibiotics. She contacted [facility] since [facility] also uses the same mobile imaging services as her PCP, she was hoping that the provider on scene today would prescribe antibiotics based off of the last chest x-ray that was ordered by the PCP. [facility] does use [employer] [facility] imaging services however we were only able to read reports of x-rays that we ordered. VINH PLASENCIA NP [address] [place] [address] [place], [place], [address], [place] [facility] 01/01/2020 18:14:18 OBGyn Episode No OBEpisode recorded.
--- OUTSIDE RECORDS SUMMARY | 2025-03-31 19:27 | XMS_ITS | Encounter Summary ---
Author Organization [facility] Address [address] [place] [address] Encounters * CPT with Medical [facility] at [facility] on 2025-03-16 { reasonForRequest : Patient having Flu like symptoms, - and had pneumonia ,&quo t;patientReports : Cough, fever greater than 2 days ; Sputum increase ; Cough , denies :[ Increased work of breathing/labored with or without fever , Unable to speak in full sentences without distress , Discoloration of skin -cyanosis ,"Needs to sleep sitting up, can t catch breath , Shortness of breath in setting of confusion , Lower extremity swelling , History of asthma, increased use of inhaler", COPD , COVID Exposure , Shortness of breath with exertion , Pain with inspiration ], chiefComplaints : Common Cold , pmh :"Epilepsy/Seizure Disorder, Sleep Apnea, Dementia (e.g., Alzheimer's Disease) , allergie s : Bactrim, Penicillins, Doxycycline , otherAllergies :null, painAsse ssment : , visitOutcome : , additionalComments :"64 y.o female complains of Common Cold\nSister reporting PNA symptoms for the past two weeks. Increased cough and sputum. Patient is GT dependent, NPO. Nonverbal but sister reports alert and oriented and can nod yes/no. History of aspiration PNA. Has z-pack refills per MD. Started on 03/05. First 3 days improved, then declining since. Followed up with MD - called in cefpodoxime 200mg BID for 10 days. Started on that past Monday - symptoms improving but developed a rash. MD reported that rash was unrelated - related to adult briefs. Has been giving since with improvement until yesterday - began declining again. MD requesting sputum sample - MD not available on weekends. Have been using oralsuctioning machine and vibrating vest w/ some improvement. Increased coughing at night and increased sputum. Thick yellow sputum. Nocturnal CPAP - MD told her to use all day when sick and then take her off when she improves. Temp 99.6F, O2 95% and HR 69. Audible wheezing last night - improved sinceputting CPAP on last night. Baseline petite seizures - more often when sick - self-limiting. Take keppra, vimat and lamotrigine daily w/ IN rescue medication. Would like to keep patient out of the hospital if possible. Requesting instED visit. \nI provided information on the mobile health provider response time and advised the patient and/or caregiver to monitor reported signs and symptoms. I discussed the warning signs of when to seek emergency care. } [facility] responds to the listed address for a 64 yof w/ a productive cough. Upon arrival on scene, pt's sister answers the door to the home for [facility]. Sister is primary CG. She invites [facility] inside and wants [facility] to sit in the living room so she can give a detailed pt hx to illustrate the need for the visit today. CG tells [facility] the pt was started on a Z-Pack on 03/05/25 because she began having s/s of aspiration PNA, which she is very prone to. These s/s included thick, yellowmucus productions and a hard exhausting cough w/ some sonorous wheezing respirations. CG provides suction to help get the sputum out of the pt's throat, as she is unable to expectorate herself. She does not have a trach and she is not intubated. Pt began to improve over the next three days, but on the fourth day, she began to decline again w/ the same s/s and the development of a low grade fever.Pt was placed on a 10-day course of cefpodoxime, of which she has three days left. Pt again, according to CG, began to show signs of improvement until last night when she became febrile w/ the same productive cough. CG describes sputum as thick and yellow. Pt's PCP office wants a sputum culture and CG is hoping [facility] can provide assistance w/ obtaining and ordering a sputum culture in the home, as the CG wants to keep pt at home if at all possible. Pt is nonverbal and cannot give her own hx, so s/s and all hx is provided by CG. No chills, s/s of n/v/d, or sob are reported at this time. CG reports pt was sob over the course of the past ten days, on and off. Pt's baseline SpO2 is reported to be70% on RA. She sleeps w/ CPAP and in the past week, PCP wanted pt to wear the CPAP sporadically throughout the day to assist w/ wheezing and cough, which CG says is working. Pt has also been sleepingmore than normal. CG gets pt out of bed daily and sits her in a chair to exercise her and provide her w/ stimulation. She has dementia and a seizure hx, but is acting appropriately according to CG. Pt is found asleep in semi-fowlers in a hospital bed in the bedroom, wearing a CPAP mask. She is arousable to voice and opens her eyes, but does not make eye contact, glancing around the room instead. She is generally well-appearing w/ no ashen or lind color noted. When CPAP is removed, not stridor or sonorous respirations are present and no obvious signs of stroke are observed and she is not bleeding anywhere. Ddx: aspiration pna, sepsis, URI [facility] obtains vital signs and pt is assessed. She is normotensive, afebrile, and maintaining her SpO2at 94% off CPAP on RA. Pt is swabbed for COVID/flu and both tests return negative. Head is atraumatic and normocephalic. Eyes are not assessed, skin is w/p/d, oral mucosa are pink and moist. Chest rises and falls minimally w/ respirations, as pt is a very shallow breather. Faint expiratory wheeze is noted anteriorly at the top on the R and remaining chun are clear w/ diminished sounds. Heat beat is strong and regular w/ no clicks or rubs. Abdomen is soft and nontender and insertion site of GTis in good condition w/ no signs of infection noted. Bandaging is clean and free of drainage or blood. Pt is rolled R lateral to observed her decubiti and they are not concerning for tunneling or worsening infection at this time. [facility] obtains a photo for C inspection. No peripheral edema is noted and pt has good pedal pulses and brisk cap refill <2 sec bilaterally. [facility] contacts [facility] to discusspt's condition and the ability to collect and order a sputum culture. [facility] is encouraged w/ pt's hemo dynamic stability and is unable to order sputum culture. It is recommended pt be seen by her PCP for the order or be transported to the ED for culture and broad spectrum abx while awaiting culture results. These options are discussed w/ CG and CG elects to call pt's PCP in the morning for an appointment. She is very grateful for [facility] visit and the attempt to discover if sputum culture is possible.[facility] informs CG if the pt's conditions worsens, she gets a high fever, she is unable to maintain herSpO2 off CPAP, she develops AMS, or seizure activity becomes uncontrollable, she should call 911 immediately. CG gives her verbal understanding. [facility] is clear. Report completed by OLIVIA Pathak [id number]. Written by [facility] on 2025-03-16
--- OUTSIDE RECORDS SUMMARY | 2025-03-31 19:27 | XMS_ITS | Continuity of Care Document ---
Author Name [facility], Medical Address [address] [place] [id number] Organization Unknown Address [address] [place] [id number] Medications No known medications Problems No known problems
--- OUTSIDE RECORDS SUMMARY | 2025-03-31 19:28 | XMS_ITS | Patient Health Record ---
[facility] Organization [facility] Address [address] [place] [address] Care Team Providers Care Lawn Caretaker Name Role Phone Lane Estevez Primary Care Provider Cory Paulino Unavailable [phone] Bernadine Alaniz Unavailable [phone] Allergies Allergen (clinical drug ingredient) Drug/Non Drug [...] MG Orally Once a day Active Ipratropium [place] 2 sprays in each nostril as needed [...] atherosclerosis of arteries of lower limbs (disorder) ([id number] ) Atherosclerosis of [place] artery of both lower extremities, with unspecified presence of clinical manifestation (I70.203) Active confirmed Vital Signs Blood pressure diastolic 65 mm Hg 12/17/2024 Height 4ft 6in in 12/17/2024 Blood pressure systolic 128 mm Hg 12/17/2024 Weight 150 lbs 12/17/2024 BMI 36.16 kg/m2 12/17/2024 Procedures Procedure Date Ordered Date Performed Result Body Sit e 25961-TLYBULN NAIL, 6 OR MORE 05/31/2024 N/A 11977-Yrgfivhx Plate 05/31/2024 N/A 52249-Izlhrenh Plate Each Additional 05/31/2024 N/A 46363-MYSI SKIN LESIONS, OVER 4 05/31/2024 N/A 06490- Debride <25 sq cm 07/31/2024 N/A 56512-PPDCFBM NAIL, 6 OR MORE 12/17/2024 N/A Encounters [facility]counter [facility] Date [facility] [address] [facility]/31/2024 Bernadine Alaniz Atherosclerosis of [place] artery of both lower extremities, with unspecified presence of clinical manifestation I70.203 ; Tinea unguium B35.1 ; Pain in right toe(s) M79.674 ; Pain in left toe(s) M79.675 and Ingrowing nail L60.[address] [address] 07/31/2024 Cory Reina Skin ulcer of toe of right foot, limited to breakdown of skin L97.511 [facility] [place] [address] 12/17/2024 Cory Huang Atherosclerosis of [place] artery of both lower extremities, with unspecified presence of clinical manifestation I70.203 ; Tinea unguium B35.1 ; Pain in right toe(s) M79.674 and Pain in left toe(s) M79.[address] [address] 05/27/2024 [facility] [address] 12/17/2024 Cory Huang Assessments Encounter Date Diagnosis (ICD Code) Assessment Notes Treatment Notes Treatment Clinical Notes Section Notes 05/31/2024 Tinea unguium (ICD-10 - B35.1) 05/31/2024 Atherosclerosis of [place] artery of both lower extremities, with unspecified presence of clinical manifestation (ICD-10 - I70.203) 12/17/2024 Tinea unguium (ICD-10 - B35.1) 12/17/2024 Atherosclerosis of [place] artery of both lower extremities, with unspecified [...] Foot, left 2V 11/17/2020 *Wound Culture 05/02/2017 83505-UARAMRY NAIL, 6 OR MORE 12/25/2013 67075-HVCKNTV NAIL, 6 OR MORE 09/08/2014 47266-CWLPEBE NAIL, 6 OR MORE 12/01/2014 92499-DRQDTUP NAIL, 6 OR MORE 07/21/2017 21923-FXYJYNZ NAIL, 6 OR MORE 10/27/2017 44110-GOQTBEB NAIL, 6 OR MORE 01/05/2018 27187-FPFUOVP NAIL, 6 OR MORE 09/07/2011 76438-PURHZQT NAIL, 6 OR MORE 11/23/2011 49367-UKXHAMR NAIL, 6 OR MORE 02/27/2012 99770-NZWQDAX NAIL, 6 OR MORE 05/21/2012 24232-UOMYAUP NAIL, 6 OR MORE 03/14/2013 56319-CAVKWZT NAIL, 6 OR MORE 06/17/2013 94657-JNRULST NAIL, 6 OR MORE 09/26/2013 50394-QIMFGQO NAIL, 6 OR MORE 03/03/2014 76464-JCORCGL NAIL, 6 OR MORE 03/09/2018 40688-BVNNYJM NAIL, 6 OR MORE 11/25/2022 96119-XFUPUEU NAIL, 6 OR MORE 11/28/2023 57851-EZMFPZJ NAIL, 6 OR MORE 05/31/2024 37993-FDFPIJS NAIL, 6 OR MORE 12/17/2024 19655-Gjdk Destruction, 1-14 03/03/2014 48303-Qvnj Destruction, 1-14 09/26/2013 95094-Irec Destruction, 1-14 03/14/2013 61582-Xfvh Destruction, 1-14 06/17/2013 88109-Alov Destruction, 1-14 05/21/2012 21565-Hkhd Destruction, 1-14 02/27/2012 65470-Rgyc Destruction, 1-14 11/23/2011 62482-Noto Destruction, 1-14 09/07/2011 25244-Hlto Destruction, 1-14 09/08/2014 50778-Zttn Destruction, 1-14 12/25/2013 50395-Xvohdlfr Plate 05/31/2024 22909-Ddluklnd Plate Each Additional 34514- Debride <25 sq cm 07/31/2024 26244- Debride <25 sq cm 07/21/2017 99167- Debride <25 sq cm 05/02/2017 81786- Debride <25 sq cm 05/10/2017 89231- Debride <25 sq cm 05/19/2017 33073- Debride <25 sq cm 06/02/2017 39792 I&D ABSCESS- SIMPLE,SINGLE 023 17195-CMEY SKIN LESIONS, OVER 4 11/28/19 24 24263-JVXE SKIN LESIONS, OVER 4 05/31/20 24 56938-VIQL SKIN LESIONS, OVER 4 05/21/20 14 86153-IAOO SKIN LESIONS, 2 TO 4 03/09/20 18 04927-AKOS SKIN LESIONS, 2 TO 4 01/06/20 18 51337-SGEV SKIN LESIONS, 2 TO 4 10/28/19 18 16403-FEVA SKIN LESIONS, 2 TO 4 12/02/19 15 59572-WDKZ SKIN LESION 07/21/2017 64274-NROF NAIL(S) 12/01/2014 P7502-DFZYUULN DYSTROPHIC NAILS ANY # 82718-JNTTOEMV OF HEMATOMA/FLUID 022 Insurance Providers Payer Name Payer Address Payer Phone Subscriber Number Group Number Insured Name Patient Relationship to Insured Coverage Start Date Coverage End Date [facility] [employer] Claims [address] [place] [id number] Ann Marie Gold Self - patient is the insured Medical (General) History Medical History History ICD Code thyroid disorder chicken pox seizure disorder Surgical History Surgery Date(Month/Year) Hospitalization History Reason Date(Month/Year) [facility]- Gtube - infection coming -wet on the outside 07/29 [facility]- Gtube 06/28 [facility]- UTI/pneumonia 3days 57-02/24 [facility] for ab out six weeks also to [facility] [place] 02/13/2017
--- OUTSIDE RECORDS SUMMARY | 2025-03-31 19:28 | XMS_ITS | Data Portability ---
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 at night, or pressure from the strap of her CPAP, as the head portion rest on the same area. Patient reports it is bloody, she has applied neosporin She reports there is no s/sx of infection, but concerned for infection Sister would like to area evaluated. I provided information on the mobile health provider response time and advised the patient and/or caregiver to monitor reported signs and symptoms. I discussed the warning signs of when to seek emergency care. ..................... ..................... ..................... ..................... ..................... ..................... ............... Locomotive Firer/Fireman Note From Zaid Macias: Dispatched for a 64yo female with wound to head. Sister states pt wears cpap at night and believes the strap caused a wound to the top of her head. Sister states she found the wound yesterday and just wants to make sure it is not infected. Sister denies any fevers, swelling, discharge or redness around the area. [facility] consulted. Sister informed to use non-adherent gaze [...] of cpap hair caps for future use. ..................... ..................... ..................... ..................... ..................... ..................... ............... [facility] Consulted: Matias Briones ..................... ..................... ..................... ..................... ..................... ..................... ............... Disposition: Fulfilled Matias Briones MD [address], [place], [address], MARIA ESTHER MCCORMICK 02/03/2025 20:19:31 03/16/2025 text/html CRC Nurse Triage Notes (Mackenzie Mata): Reason For Request: Patient having Flu like symptoms, - and had pneumonia Patient Reports: Cough, fever greater than 2 days ; Sputum increase ; Cough Denies: Increased work of breathing/labored with or without fever Unable to speak in full sentences without distress Discoloration of skin -cyanosis Needs to sleep sitting up, can t catch breath Shortness of breath in setting of confusion Lower extremity swelling History of asthma, increased use of inhaler COPD COVID Exposure Shortness of breath with exertion Pain with inspiration Chief Complaints: Common Cold PMH: Epilepsy/Seizure Disorder, Sleep Apnea, Dementia (e.g., Alzheimer's Disease) PMH Reviewed at 03/16/2025:38 Allergies Reviewed at 03/16/2025:38 Comments: 64 y.o female complains of Common Cold Sister reporting PNA symptoms for the past two [...] not available on weekends. Have been using oral suctioning machine and vibrating vest w/ some improvement. Increased coughing at night and increased sputum. Thick yellow sputum. Nocturnal CPAP - MD told her to use all day when sick and then take her off when she improves. Temp 99.6F, O2 95% and HR 69. Audible wheezing last night - improved since putting CPAP on last night. Baseline petite seizures - more often when sick - self-limiting. Take keppra, vimat and lamotrigine daily w/ IN rescue medication. Would like to keep patient out of the hospital if possible. Requesting instED visit. I provided information on the mobile health provider response time and advised the patient and/or caregiver to monitor reported signs and symptoms. I discussed the warning signs of when to seek emergency care. Locomotive Firer/Fireman Organization Information for [employer] Legal Name: [employer]. Address: [address] [place] [address], Building Certifier: Brett Vila MD CLIA No.: [id number] Locomotive Firer/Fireman POC Test Results from [employer] - ALS Rapid COVID antigen (10:49:41) COVID: - Attachments uploaded as part of this test result can be found under Documents section. Rapid influenza antigen (10:49:43) Flu: - ..................... ..................... ..................... ..................... ..................... ..................... ............... Locomotive Firer/Fireman Note From [employer]: [facility] responds to the listed address for a 64 yof w/ a productive cough. Upon arrival on scene, pt's sister answers the door to the home for [facility]. Sister is primary CG. She invites [facility] inside and wants [facility] to sit in the living room so she can give a detailed pt hx to illustrate the need for the visit today. CG tells [facility] the pt was started on a Z-Pack on 03/05/25 because she began having s/s of aspiration PNA, which she is very prone to. These s/s included thick, yellow mucus productions and a hard exhausting cough w/ [...] and the development of a low grade fever. Pt was placed on a 10-day course of cefpodoxime, of which she has three days left. Pt again, according to CG, began to show signs of improvement until last night when she became febrile w/ the same productive cough. CG describes sputum as thick and yellow. Pt's PCP office wants a sputum culture and CG is hoping [facility] can provide assistance w/ obtaining and [...] off. Pt's baseline SpO2 is reported to be 70% on RA. She sleeps w/ CPAP and in the past week, PCP wanted pt to wear the CPAP sporadically throughout the day to assist w/ wheezing and cough, which CG says is working. Pt has also been sleeping more than normal. CG gets pt out of [...] bleeding anywhere. Ddx: aspiration pna, sepsis, URI [facility] obtains vital signs and pt is assessed. She is normotensive, afebrile, and maintaining her SpO2 at 94% off CPAP on RA. Pt is [...] soft and nontender and insertion site of GT is in good condition w/ no signs of infection noted. Bandaging is clean and free of drainage or blood. Pt is rolled R lateral to observed her decubiti and they are not concerning for tunneling or worsening infection at this time. [facility] obtains a photo for [facility] inspection. No peripheral edema is noted and pt has good pedal pulses and brisk cap refill <2 sec bilaterally. [facility] contacts [facility] to discuss pt's condition and the ability to collect and order a sputum culture. [facility] is encouraged w/ pt's hemodynamic stability and is unable to order sputum culture. It is recommended pt be seen by her PCP for the order or be transported to the ED for culture and broad spectrum abx while awaiting culture results. These options are discussed w/ CG and CG elects to call pt's PCP in the morning for an appointment. She is very grateful for [facility] visit and the attempt to discover if sputum culture is possible. [facility] informs CG if the pt's conditions worsens, she gets a high fever, she is unable to maintain her SpO2 off CPAP, she develops AMS, or seizure activity becomes uncontrollable, she should call 911 immediately. gives her verbal understanding. [facility] is clear. Report completed by OLIVIA Pathak [id number]. ..................... ..................... ..................... ..................... ..................... ..................... ............... [facility] Consulted: Lili Zavaleta ..................... ..................... ..................... ..................... ..................... ..................... ............... Disposition: Fulfilled LILI ZAVALETA MD [address], [place], [address], [employer] [facility] [place] 03/21/2025 20:08:33 OBGyn Episode No OBEpisode recorded.
--- OUTSIDE RECORDS SUMMARY | 2025-03-31 19:28 | XMS_ITS | Patient Health Record ---
Author Organization 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 [address] [place] [phone] 06/28/2024 Michael Sevilla Jr [facility] [address] [place] [phone] 08/08/2024 Michael Sevilla Jr [facility] [address] [place] [phone] 11/06/2024 Michael Sevilla Jr Assessments Encounter Date Diagnosis (ICD Code) Assessment Notes Treatment Notes Treatment Clinical Notes Section Notes 11/26/2024 Gastrostomy malfunction (ICD-10 - K94.23) 11/26/2024 Dysphagia (ICD-10 - R13.10) Plan Of Treatment No Information Insurance Providers Payer Name Payer Address Payer Phone Subscriber Number Group Number Insured Name Patient Relationship to Insured Coverage Start Date Coverage End Date [facility] [facility] [address] [place] [address] [id number] EDEN BRISCOE Self - patient is the insured
== END 2025-03-31 17:53 | disposition home or self-care (01) ==
LOC: HO.LNP 17:52
PROVIDERS: Visit Provider Internal Medicine
DX: Q90.9 Down syndrome, unspecified (principal); J40 Bronchitis, not specified as acute or chronic
CPT/HCPCS: 87070; 87205